=== PATIENT | male | born 1970 | race Caucasian/White ===

== ENCOUNTER → 2020-02-12 13:37 | Outpatient (BNVA) | payer OTHER, SELFPAY | PROVIDERS: PCP Nurse Practitioner Family; Referring Provider Nurse Practitioner Family; Visit Provider Nurse Practitioner | DX: Z76.89 Persons encountering health services in other specified circumstances (principal) ==

== ENCOUNTER 2020-02-15 12:28 | Emergency (ER) | payer SELFPAY ==
[2020-02-15 12:32] VITALS: RESP 18
--- NOTE | 2020-02-15 12:55 | PC.NURSE ---
Pt arrived on unit, seeking detox. pt denies SI. Cooperative w/ changeover. Speech sl thick, gait steady.
[2020-02-15 13:14] VITALS: BP 143/99; PULSE 84; RESP 20; TEMP 36.3; O2SAT 96; BMI 26.5
--- NOTE | 2020-02-15 13:14 | ED_ITS ---
HPI - Alcohol General Chief Complaint: ETOH/Substance Use Stated Complaint: Detox Time Seen by Provider: 02/15/20 12:57 Source: patient Mode of arrival: ambulatory History of Present Illness HPI narrative: 49-year-old male with a past medical history of ETOH abuse presenting to ED interested in detox. Admits to drinking 6-8 shots of whiskey daily, last drink 1 hour [employer] MAINTE[employer]IC[employer]. Denies SI/HI, visual/auditory hallucinations, CP/SOB, cough, fever, chills complaint: alcohol intoxication, alcohol dependence and medical clearance for detox facility Last drink: Hours (ago) Related Data Allergies Allergy/AdvReac Type Severity Reaction Status Date / Time No Known Allergies Allergy Verified 02/12/20 13:37 Review of Systems Review of Systems: Constitutional: No Weight loss, No Fever, No Chills, No Night Sweats, No Fatigue, No Malaise Cardiovascular: No Chest Pain, No SOB, No Palpitations Respiratory: No Cough, No Sputum, No Dyspnea Gastrointestinal: No Nausea, No Vomiting, No Diarrhea, No Abdominal pain Musculoskeletal: No joint pain, No Myalgias, No Joint Swelling Skin: No Skin Lesions, No rash Psych: No Anxiety/Panic, No Depression, No SI/HI/AH/VH, No Social Issues Yes all other systems are reviewed and are negative [facility] Past Medical History Attestation statement: The following information was validated with the patient. Family History Family History (Updated 02/12/20 @ 13:39 by CHAPINCITO Latif) Father Heart attack Mother No problems noted. Social History Social History (Updated 02/12/20 @ 13:41 by CHAPINCITO Latif) Alcohol intake: current Alcohol intake frequency: 3 or more drinks per day Alcohol type: hard liquor Smoking Status: Current every day smoker Tobacco Type: Cigarette Packs Per Day: 1.5 Use of substances other than those prescribed or required for medical reasons: Yes Substance Use Type: Marijuana Substance Use Frequency: Chronic Longstanding Last Used Substance: Just Prior to Admission Any prior treatment program specific to substance use: No Advance Directives: No Advance Directives Information Provided: No Physical Exam Vital Signs: Vital Signs: Last Vital Signs Temp 97.4 F 02/15/20 13:14 Pulse 84 02/15/20 13:14 Resp 20 02/15/20 13:14 BP 143/99 H 02/15/20 13:14 Pulse Ox 96 02/15/20 13:14 Body Mass Index 26.5 Const: Other: Intoxicated General: cooperative and healthy appearing Orientation/consciousness: patient oriented x3 Limitations: no limitations HENMT: Head: Yes normal to inspection Ears: hearing grossly normal bilaterally General nose exam: Normal external nose present Face and si nus: Yes normal facial exam Eyes: General: appearance normal, both eyes and all related structures EOM: EOMs intact bilaterally Neck: Neck: Yes normal visual inspection Resp: Effort & Inspection: normal respiratory effort Auscultation: clear to auscultation bilaterally and no wheezes Cardio: Rate: regular rate Heart sounds: S1 normal heart sound present and S2 normal heart sound present GI: Inspection: Yes normal to inspection Skin: Rashes: no rashes Wounds: no wounds Neuro: Other: No tongue fasciculations or tremors General: patient oriented x3 and gait normal Gait exam (Neuro): Normal gait present Extrem: General: Yes normal to inspection Course Course Course Narrative: -patient accepted to [facility] detox, bed available at 5:00 p.m. will be transporting patient, will discharge to go to detox MDM - Alcohol MDM Narrative Medical decision making narrative: 49-year-old male with a past medical history of ETOH abuse presenting to ED interested in detox. On exam VSS, NAD/well- appearing, intoxicated, ambulating with steady gait. Plan: [facility] for detox Lab Data Labs: Lab Results 02/15/20 Range/Units 13:57 Urine Opiates Screen Not Detected (Not Detect) Ur Barbiturates Screen Not Detected (Not Detect) Ur Phencyclidine Scrn Not Detected (Not Detect) Ur Amphetamines Screen Not Detected (Not Detect) U Benzodiazepines Scrn Not Detected (Not Detect) Urine Cocaine Screen Not Detected (Not Detect) U Marijuana (THC) Screen POSITIVE H (Not Detect) Discharge Plan Discharge Clinical Impression: Alcohol dependence Patient Disposition: Home, Self-Care Instructions: Alcohol Dependence (ED) Additional Instructions: You were excepted to [facility] detox, the bed is available at 5:00 p.m. Make sure you go to the detox center as discussed Do not drink alcohol or take drugs as a can kill you If you have suicidal or homicidal ideations return to the ED Referrals: Gulshan Chanel FNP-BC [Primary Care Provider] - 2 days
--- NOTE | 2020-02-15 13:17 | PC.NURSE ---
Pt evaluated by provider. CARE team in to evaluate. Pt reports he has been using 8-10 shots of whiskey daily. Denies any other substance use. States he has been able to work, maintain his marriage of 21 years but would like to 'slow things down.' Pt offered lunch. Crisis process explained.
--- NOTE | 2020-02-15 13:40 | MHC.CARE ---
Recovery Support note: Patient is a 49 year old [place]araguan speaking male who presented to [facility] ED seeking detox for alcohol use. Patient reports a desire to go to detox as he currently wakes up with shakes and has to drink in the morning. Patient reports a desire to get back to his previous ways of drinking - a couple of bears with friends. Explained to patient that he made the right choice to seek help and that it may be difficult to go back to his previous levels of drinking. Patient acknowledged. Patient is only interested in going to [facility] for detox. Ray ([facility] - nursing) reports they do have a male bed and patient's info has been faxed ([phone]) for review. Patient reports his will be able to transport him.
--- NOTE | 2020-02-15 13:58 | PC.NURSE ---
Pt resting, resp unlabored
[2020-02-15 14:31] LABS: Amphetamine Screen Urine Not Detected (Not Detect); Barbiturates, Urine Not Detected (Not Detect); Benzodiazepines Screen Urine Not Detected (Not Detect); Cannabinoid Screen Urine POSITIVE (Not Detect); Cocaine Screen Urine Not Detected (Not Detect); Opiate Screen Urine Not Detected (Not Detect); Phencyclidine Screen Urine Not Detected (Not Detect)
--- NOTE | 2020-02-15 15:38 | PC.NURSE ---
Report given to Theodora at [facility]. Pt discharged to the waiting room to await ride home, will transport.
[2020-02-15 15:56] LABS: Ethanol 266 mg/dL
== END 2020-02-15 15:40 | disposition home or self-care (01) ==
PROVIDERS: Physician Assistant; Emergency Provider Emergency Medicine Emergency Medical Services; PCP Nurse Practitioner Family
DX: F10.229 Alcohol dependence with intoxication, unspecified (principal); F17.210 Nicotine dependence, cigarettes, uncomplicated; Z71.6 Tobacco abuse counseling; Z71.41 Alcohol abuse counseling and surveillance of alcoholic
CPT/HCPCS: 80307; 80320; 99284

== ENCOUNTER 2020-05-18 03:15 | Emergency (ER) | payer MEDICAID, SELFPAY ==
--- NOTE | ~2020-05-18 | XR_ITS ---
EXAMINATION: XR CHEST CLINICAL INFORMATION: Cough COMPARISON: 08/16/2019 TECHNIQUE: Frontal view of the chest was obtained. FINDINGS: The cardiomediastinal silhouette is within normal limits. The lungs are well expanded. There is no focal consolidation, edema, or effusion. No pneumothorax. No acute osseous abnormality. XR/XR chest 1V IMPRESSION: No evidence of acute process.
[2020-05-18 03:29] VITALS: BP 125/86; PULSE 79; RESP 15; TEMP 36.6; O2SAT 97; BMI 25.1
[2020-05-18 03:35] VITALS: PULSE 83; O2SAT 96
[2020-05-18 03:38] VITALS: BP 128/91; PULSE 81; RESP 16; TEMP 36.6; O2SAT 97
[2020-05-18 05:19] VITALS: BP 128/91; PULSE 86; RESP 18; TEMP 36.6; O2SAT 97
--- NOTE | 2020-05-18 06:19 | ECG_ITS ---
Test Reason : SOB Blood Pressure : / mmHG Vent. Rate : 062 BPM Atrial Rate : 062 BPM P-R Int : 138 ms QRS Dur : 088 ms QT Int : 464 ms P-R-T Axes : 050 029 076 degrees QTc Int : 470 ms Normal sinus rhythm ST & T wave abnormality, consider anterior ischemia Prolonged QT Abnormal ECG When compared with ECG of 16-AUG-2019 06:41, T wave inversion more evident in Anterior leads Referred By: Ainsley Cage Electronically Signed By:KALIE LEARY
--- NOTE | 2020-05-18 06:31 | ED_ITS ---
HPI - General Adult General Chief complaint: Upper Respiratory Symptoms Stated complaint: SOB/DIZZY Time Seen by Provider: 05/18/20 06:17 Source: patient Mode of arrival: ambulatory History of Present Illness HPI narrative: This is a 50-year-old male history of chronic alcohol use and presents with complaints of chest discomfort, burning in nature, nonradiating, exacerbated by deep inspiration and movement, and not associated with fevers, chills, nausea, vomiting, dizziness, headache. Patient sources that he had for nips yesterday. Related Data Home Medications Medication Instructions Recorded Confirmed No Known Home Meds 05/18/20 05/18/20 Allergies Allergy/AdvReac Type Severity Reaction Status Date / Time No Known Allergies Allergy Verified 02/20/20 13:31 Review of Systems Review of Systems: Pertinent positives and negatives as stated in HPI 10 point review of systems is otherwise negative. PMFSH Past Medical History Source: nursing notes reviewed Medical History Autoimmune disease Lyme disease Pancreatitis Surgical History No pertinent past surgical history Family History Family History Father Heart attack Mother No problems noted. Sister No problems noted. Daughter No problems noted. Social History Social History Alcohol intake: current Alcohol intake frequency: 3 or more drinks per day Alcohol type: beer and hard liquor Smoking Status: Current every day smoker Tobacco Type: Cigarette Packs Per Day: 1.5 Smoked in Last 30 Days: Yes Use of substances other than those prescribed or required for medical reasons: No Substance Use Type: Marijuana Advance Directives: No Physical Exam Vital Signs: Vital Signs: Last Vital Signs Temp 98 F 05/18/20 05:19 Pulse 87 05/18/20 08:08 Resp 16 05/18/20 08:08 BP 103/63 05/18/20 08:08 Pulse Ox 96 05/18/20 08:08 Body Mass Index 25.1 VITAL SIGNS: Reviewed. GENERAL: Well developed, well nourished, in no acute distress. HEAD: Normocephalic/atraumatic, EYES: PERRLA, EOMI NOSE: Nares patent bilateral OROPHARYNX: no oral lesions noted, posterior pharynx clear NECK: Supple, no adenopathy LUNGS: Normal breath sounds. SpO2<96> CARDIOVASCULAR: Regular rate and rhythm without noted murmurs, no JVD or lower extremity edema. ABDOMEN: Soft, non-tender, non-distended with bowel sounds. MUSCULOSKELETAL: No tenderness, deformities, or effusions noted on gross inspection. EXTREMITIES: No cyanosis, clubbing or edema. SKIN: Inspection of the skin reveals no rashes, ulcerations, jaundice, pallor, or petechiae. NEUROLOGIC: Alert and oriented x 4. Course Course Course Narrative: This is a 50-year-old male with history and clinical presentation most suggestive of alcoholic gastritis versus GERD versus pancreatitis, but will rule out cardiopulmonary etiology. On review of all investigations there are no acute findings and on re-evaluation after receiving GI cocktail patient has had improvement of his symptoms. All results and findings were discussed with him at bedside and he is otherwise stable for discharge to home. Medical Decision Making Lab Data Result diagrams: 05/18/20 06:33 05/18/20 06:33 Labs: Lab Results 05/18/20 05/18/20 05/18/20 Range/Units 06:33 06:33 06:33 WBC 7.1 (4.8-10.8) X10*3/uL RBC 4.41 L (4.60-5.80) X10*6/uL Hgb 15.4 (14.0-18.0) g/dl Hct 43.5 (42-52) % MCV 98.6 H (80-98) fL MCH 34.9 H (27.0-33.0) pg MCHC 35.4 (31.0-36.0) g/dl RDW 12.4 (11.0-16.0) % Plt Count 203 (160-400) X10*3/uL MPV 9.5 (9.4-12.4) fL Immature Gran % (Auto) 0.3 (0.0-0.4) % Neut % (Auto) 40.2 L (45-73) % Lymph % (Auto) 49.6 H (20-40) % [place] % (Auto) 6.4 (2-11) % Eos % (Auto) 2.0 (0-4) % Baso % (Auto) 1.5 (0-2) % Lymph # (Auto) 3.5 (1.2-4.9) X10*3/uL [place] # (Auto) 0.5 (0.1-1.2) X10*3/uL Eos # (Auto) 0.1 (0.0-0.4) X10*3/uL Baso # (Auto) 0.1 (0.0-0.2) X10*3/uL Abs Immat Gran (auto) 0.02 (0.00-0.03) X10*3/uL Absolute Neuts (auto) 2.9 (2.0-8.3) X10*3/uL Absolute Nucleated RBC 0.000 (0.0-0.012) X10*3/uL Nucleated RBC % (auto) 0.0 (0.0-0.2) /100WBC Sodium 141 (135-145) mmol/L Potassium 3.7 (3.3-5.1) mmol/L Chloride 102 (96-108) mmol/L Carbon Dioxide 25 (22-29) mmol/L Anion Gap 18 (12-20) BUN 9 (9-16) mg/dL Creatinine 0.69 (0.5-1.4) mg/dL Estim Creat Clear Calc 130.7 Estimated GFR > 60 Random Glucose 91 (60-115) mg/dL Calcium 8.8 (8.4-10.2) mg/dL Total Bilirubin 0.8 (0.0-1.0) mg/dL AST 58 H (5-37) U/L ALT 60 H (0-40) U/L Alkaline Phosphatase 83 (39-117) U/L Troponin I High Sens (<3.5-35.0) ng/L Total Protein 7.1 (6.5-8.0) g/dL Albumin 4.4 (3.5-5.0) g/dL Lipase 61 (8-78) U/L Ethyl Alcohol mg/dL Coronavirus (PCR) NEGATIVE (Negative) Influenza Type A (PCR) NEGATIVE (Negative) Influenza Type B (PCR) NEGATIVE (Negative) RSV RNA Qual (PCR) NEGATIVE (Negative) 05/18/20 05/18/20 Range/Units 06:33 06:33 WBC (4.8-10.8) X10*3/uL RBC (4.60-5.80) X10*6/uL Hgb (14.0-18.0) g/dl Hct (42-52) % MCV (80-98) fL MCH (27.0-33.0) pg MCHC (31.0-36.0) g/dl RDW (11.0-16.0) % Plt Count (160-400) X10*3/uL MPV (9.4-12.4) fL Immature Gran % (Auto) (0.0-0.4) % Neut % (Auto) (45-73) % Lymph % (Auto) (20-40) % [place] % (Auto) (2-11) % Eos % (Auto) (0-4) % Baso % (Auto) (0-2) % Lymph # (Auto) (1.2-4.9) X10*3/uL [place] # (Auto) (0.1-1.2) X10*3/uL Eos # (Auto) (0.0-0.4) X10*3/uL Baso # (Auto) (0.0-0.2) X10*3/uL Abs Immat Gran (auto) (0.00-0.03) X10*3/uL Absolute Neuts (auto) (2.0-8.3) X10*3/uL Absolute Nucleated RBC (0.0-0.012) X10*3/uL Nucleated RBC % (auto) (0.0-0.2) /100WBC Sodium (135-145) mmol/L Potassium (3.3-5.1) mmol/L Chloride (96-108) mmol/L Carbon Dioxide (22-29) mmol/L Anion Gap (12-20) BUN (9-16) mg/dL Creatinine (0.5-1.4) mg/dL Estim Creat Clear Calc Estimated GFR Random Glucose (60-115) mg/dL Calcium (8.4-10.2) mg/dL Total Bilirubin (0.0-1.0) mg/dL AST (5-37) U/L ALT (0-40) U/L Alkaline Phosphatase (39-117) U/L Troponin I High Sens < 3.5 (<3.5-35.0) ng/L Total Protein (6.5-8.0) g/dL Albumin (3.5-5.0) g/dL Lipase (8-78) U/L Ethyl Alcohol 275 mg/dL Coronavirus (PCR) (Negative) Influenza Type A (PCR) (Negative) Influenza Type B (PCR) (Negative) RSV RNA Qual (PCR) (Negative) ECG Data Attestation: I personally reviewed and interpreted this ECG as follows: Prior ECG tracings: available for review (08/16/2019 T-wave inversions more noticeable on today's EKG, otherwise no acute changes.) Interpretation: Normal sinus rhythm, HR -62, no evidence of acute ischemia, OK/humerus are within normal limits and there is borderline QTC. Discharge Plan Discharge Clinical Impression: Atypical chest pain Patient Disposition: Home, Self-Care Instructions: Chest Pain (ED), Chest Wall Pain (ED) Additional Instructions: 1. Please resume all home medications as prescribed. 2. Consider utilizing [id number] Tylenol/ibuprofen for symptom relief. 3. Consider minimizing alcohol consumption as this may exacerbate your presenting symptoms. 4. Please follow-up with your primary care provider for re- evaluation and outpatient management Do not hesitate to return to the emergency department should you experience any acute worsening of your symptoms. Prescriptions: No Action No Known Home Meds RF: 0 Referrals: Gulshan Chanel, [employer] [Primary Care Provider] - 2 days (Re-evaluation and out patient management atypical chest pain, negative workup in the emergency department.)
[2020-05-18 06:40] LABS: MANUAL DIFF FLAG NO
[2020-05-18 06:42] LABS: Basophils Absolute Auto 0.1 X10*3/uL (0.0-0.2); Basophils Percent Auto 1.5 % (0-2); Eosinophils Absolute Auto 0.1 X10*3/uL (0.0-0.4); Hematocrit 43.5 % (42-52); Hemoglobin 15.4 g/dl (14.0-18.0); Imm Gran Abs Auto 0.02 X10*3/uL (0.00-0.03); Imm Gran Pct Auto 0.3 % (0.0-0.4); Lymphocytes Absolute Auto 3.5 X10*3/uL (1.2-4.9); Lymphocytes Percent Auto 49.6 % (20-40); Mean Corpuscular HGB Conc 35.4 g/dl (31.0-36.0); Mean Corpuscular Hemoglobin 34.9 pg (27.0-33.0); Mean Corpuscular Volume 98.6 fL (80-98); Mean Platelet Volume 9.5 fL (9.4-12.4); Monocytes Absolute Auto 0.5 X10*3/uL (0.1-1.2); Monocytes Percent Auto 6.4 % (2-11); Neutrophils Absolute Auto 2.9 X10*3/uL (2.0-8.3); Neutrophils Percent Auto 40.2 % (45-73); Platelet Count 203 X10*3/uL (160-400); Red Blood Count 4.41 X10*6/uL (4.60-5.80); Red Cell Distribution Width 12.4 % (11.0-16.0); White Blood Count 7.1 X10*3/uL (4.8-10.8)
[2020-05-18 07:03] LABS: Ethanol 275 mg/dL
[2020-05-18 07:07] LABS: Alanine Aminotransferase 60 U/L (0-40); Albumin Level 4.4 g/dL (3.5-5.0); Alkaline Phosphatase 83 U/L (39-117); Anion Gap 18 (12-20); Aspartate Amino Transferase 58 U/L (5-37); Bilirubin Total 0.8 mg/dL (0.0-1.0); Blood Urea Nitrogen 9 mg/dL (9-16); Calcium 8.8 mg/dL (8.4-10.2); Carbon Dioxide 25 mmol/L (22-29); Chloride 102 mmol/L (96-108); Creatinine Clr Calc Pharmacy 130.7; Estimated Glomerular Filt Rate > 60; Glucose Random 91 mg/dL (60-115); Lipase 61 U/L (8-78); Potassium 3.7 mmol/L (3.3-5.1); Sodium 141 mmol/L (135-145); Total Protein 7.1 g/dL (6.5-8.0)
[2020-05-18 07:19] LABS: Influenza A PCR NEGATIVE (Negative); Influenza B PCR NEGATIVE (Negative); Resp Syncy Virus RNA Qual PCR NEGATIVE (Negative); SARS COV2 PCR INHOUSE NEGATIVE (Negative)
[2020-05-18] MEDS: Lidocaine HCl Viscous 2 % 15 ML SOLUTION 10 ML MUCOUS MEM (08:06)
[2020-05-18] MEDS: Magnesium Hydrox/Alum Hydrox 30 ML ORAL.SUSP PO (08:06)
[2020-05-18 08:07] LABS: Troponin-I High Sensitivity < 3.5 ng/L (<3.5-35.0)
[2020-05-18 08:08] VITALS: BP 103/63; PULSE 87; RESP 16; O2SAT 96
== END 2020-05-18 09:22 | disposition home or self-care (01) ==
PROVIDERS: Emergency Provider Student in an Organized Health Care Education/Training Program; PCP Nurse Practitioner Family
DX: R07.89 Other chest pain (principal); R42 Dizziness and giddiness; R06.02 Shortness of breath; F17.210 Nicotine dependence, cigarettes, uncomplicated; Z71.6 Tobacco abuse counseling; Z20.822 Contact with and (suspected) exposure to COVID-19
CPT/HCPCS: 0241U; 36415; 71045; 80053; 80320; 83690; 84484; 85025; 93005; 99285

== ENCOUNTER 2020-06-17 11:03 | Outpatient (REF) | payer MEDICAID, SELFPAY ==
[2020-06-17 12:05] LABS: SARS COV2 PCR INHOUSE NEGATIVE (Negative)
== END 2020-06-17 11:04 | disposition home or self-care (01) ==
LOC: HO.LAB 11:03
PROVIDERS: Visit Provider Internal Medicine
DX: Z20.822 Contact with and (suspected) exposure to COVID-19 (principal)
CPT/HCPCS: C9803; U0003

== ENCOUNTER 2020-07-28 09:10 | Emergency (ER) | payer MEDICAID, SELFPAY ==
[2020-07-28 09:23] VITALS: BP 118/85; PULSE 68; RESP 16; TEMP 36.6; O2SAT 95; BMI 32.1
--- NOTE | 2020-07-28 09:34 | ED.GIBLEED ---
HPI - GI Bleed General Chief complaint: Abdominal Pain Stated complaint: vomiting blood Time Seen by Provider: 07/28/20 09:30 Source: patient Mode of arrival: ambulatory Limitations: no limitations History of Present Illness HPI Narrative: 50 yo male hx of ETOH use here with vomiting in the middle of the night x 1 saw brb no clots, no NSAIDs or AC therapy, no prior episodes complaint: gross hematemesis Onset (ago): hour(s) (around 3am) Severity: mild Relieving factors: none Exacerbating factors: none Context: alcohol abuse Associated symptoms: nausea and vomiting Treatments Prior to Arrival: none Related Data Previous Rx's Medication Instructions Recorded omeprazole 20 mg PO BID 14 Days #28 cap 07/28/20 ondansetron 4 mg PO Q8H PRN #20 tab 07/28/20 Allergies Allergy/AdvReac Type Severity Reaction Status Date / Time No Known Allergies Allergy Verified 05/22/20 09:37 Review of Systems Review of Systems: Constitutional : No Weight loss, No Fever, No Chills ENT/Mouth : No sore throat, No Rhinorrhea Eyes: No Swelling, No Redness Cardiovascular : No Chest Pain, No SOB, NoEdema Respiratory : No Cough, No Sputum, No Wheezing Gastrointestinal : Positive Nausea, Positive Vomiting,no Diarrhea, no abdominal Pain, No Hematochezia, No Melena Genitourinary : No Dysuria, No Urinary Frequency, No Hematuria, No Urgency Musculoskeletal : No joint pain, No Myalgias, No Joint Swelling Skin : No Skin Lesions, No rash Neuro : No Weakness, No Numbness, No Dizziness, No Headache Psych : No Anxiety/Panic, No Depression Heme/Lymph: No Bruising, No Lymphadenopathy Endocrine : No Polyuria, No Polydipsia All other systems reviewed and are negative. [facility] Past Medical History Attestation statement: The following information was validated with the patient. Medical History Autoimmune disease Lyme disease Pancreatitis Surgical History No pertinent past surgical history Family History Family History Father Heart attack Mother No problems noted. Sister No problems noted. Daughter No problems noted. Social History Social History Alcohol intake: current Alcohol intake frequency: 3 or more drinks per day Alcohol type: beer and hard liquor Smoking Status: Current every day smoker Tobacco Type: Cigarette Packs Per Day: 1.5 Substance Use Type: Marijuana Advance Directives: No Advance Directives Information Provided: No Physical Exam Vital Signs: Vital Signs: Last Vital Signs Temp 98 F 07/28/20 09:23 Pulse 68 07/28/20 09:23 Resp 16 07/28/20 09:23 BP 118/85 07/28/20 09:23 Pulse Ox 95 07/28/20 09:23 Body Mass Index 32.1 Appearance: Alert. Oriented X3. No acute distress. Eyes: Pupils equal, round and reactive to light. ENT: Pharynx normal. Neck: Normal inspection. Neck supple. CVS: Normal heart rate and rhythm. Pulses normal. Respiratory: No respiratory distress. Breath sounds normal. Abdomen: Soft and nontender. Rectal: brown stool Skin: Skin warm and dry. Normal skin color. Normal skin turgor. Extremities: No lower extremity edema. No calf ttp Neuro: Oriented X 3. No motor deficit. No sensory deficit. Course Course Course Narrative: labs are stable, can be DC at this time, no further episodes, start on PPI no abdominal ttp chronic elevation in lipase, LFTs due to ETOH, clinically sober stable for DC MDM - GI Bleed MDM Narrative Medical decision making narrative: 50 yo male hx of alcoholism had n/v and one episode of brb no clots noted - has benign abdominal exam, brown stools - likely ETOH gastritis vs indy rasheed will obtain labs, guiac stool, start on protonix, dispo per results and findings, no NSAIDs and no AC therapy Lab Data Result diagrams: 07/28/20 10:06 07/28/20 10:06 Labs: Lab Results 07/28/20 07/28/20 07/28/20 Range/Units 10:06 10:06 10:06 WBC 5.3 (4.8-10.8) X10*3/uL RBC 4.23 L (4.60-5.80) X10*6/uL Hgb 14.7 (14.0-18.0) g/dl Hct 42.1 (42-52) % MCV 99.5 H (80-98) fL MCH 34.8 H (27.0-33.0) pg MCHC 34.9 (31.0-36.0) g/dl RDW 13.2 (11.0-16.0) % Plt Count 114 L D (160-400) X10*3/uL MPV 9.9 (9.4-12.4) fL Immature Gran % (Auto) 0.2 (0.0-0.4) % Neut % (Auto) 67.5 (45-73) % Lymph % (Auto) 22.3 (20-40) % [place] % (Auto) 7.9 (2-11) % Eos % (Auto) 0.8 (0-4) % Baso % (Auto) 1.3 (0-2) % Lymph # (Auto) 1.2 (1.2-4.9) X10*3/uL [place] # (Auto) 0.4 (0.1-1.2) X10*3/uL Eos # (Auto) 0.0 (0.0-0.4) X10*3/uL Baso # (Auto) 0.1 (0.0-0.2) X10*3/uL Abs Immat Gran (auto) 0.01 (0.00-0.03) X10*3/uL Absolute Neuts (auto) 3.6 (2.0-8.3) X10*3/uL Absolute Nucleated RBC 0.000 (0.0-0.012) X10*3/uL Nucleated RBC % (auto) 0.0 (0.0-0.2) /100WBC PT 11.9 (10.8-13.0) SEC INR 1.0 (0.9-1.1) APTT 36.0 (24.1-38.0) SEC Sodium 140 (135-145) mmol/L Potassium 3.6 (3.3-5.1) mmol/L Chloride 96 (96-108) mmol/L Carbon Dioxide 25 (22-29) mmol/L Anion Gap 23 H (12-20) BUN 9 (9-16) mg/dL Creatinine 0.72 (0.5-1.4) mg/dL Estim Creat Clear Calc 106.8 Estimated GFR > 60 Random Glucose 212 H D (60-115) mg/dL Calcium 9.3 (8.4-10.2) mg/dL Magnesium 1.6 (1.6-2.6) mg/dL Total Bilirubin 2.2 H (0.0-1.0) mg/dL Direct Bilirubin 0.9 H (0.0-0.5) mg/dL AST 144 H (5-37) U/L ALT 73 H (0-40) U/L Alkaline Phosphatase 83 (39-117) U/L Total Protein 7.3 (6.5-8.0) g/dL Albumin 4.5 (3.5-5.0) g/dL Lipase 97 H (8-78) U/L Stool Occult Blood (NEGATIVE) Ethyl Alcohol mg/dL 07/28/20 07/28/20 Range/Units 10:06 10:06 WBC (4.8-10.8) X10*3/uL RBC (4.60-5.80) X10*6/uL Hgb (14.0-18.0) g/dl Hct (42-52) % MCV (80-98) fL MCH (27.0-33.0) pg MCHC (31.0-36.0) g/dl RDW (11.0-16.0) % Plt Count (160-400) X10*3/uL MPV (9.4-12.4) fL Immature Gran % (Auto) (0.0-0.4) % Neut % (Auto) (45-73) % Lymph % (Auto) (20-40) % [place] % (Auto) (2-11) % Eos % (Auto) (0-4) % Baso % (Auto) (0-2) % Lymph # (Auto) (1.2-4.9) X10*3/uL [place] # (Auto) (0.1-1.2) X10*3/uL Eos # (Auto) (0.0-0.4) X10*3/uL Baso # (Auto) (0.0-0.2) X10*3/uL Abs Immat Gran (auto) (0.00-0.03) X10*3/uL Absolute Neuts (auto) (2.0-8.3) X10*3/uL Absolute Nucleated RBC (0.0-0.012) X10*3/uL Nucleated RBC % (auto) (0.0-0.2) /100WBC PT (10.8-13.0) SEC INR (0.9-1.1) APTT (24.1-38.0) SEC Sodium (135-145) mmol/L Potassium (3.3-5.1) mmol/L Chloride (96-108) mmol/L Carbon Dioxide (22-29) mmol/L Anion Gap (12-20) BUN (9-16) mg/dL Creatinine (0.5-1.4) mg/dL Estim Creat Clear Calc Estimated GFR Random Glucose (60-115) mg/dL Calcium (8.4-10.2) mg/dL Magnesium (1.6-2.6) mg/dL Total Bilirubin (0.0-1.0) mg/dL Direct Bilirubin (0.0-0.5) mg/dL AST (5-37) U/L ALT (0-40) U/L Alkaline Phosphatase (39-117) U/L Total Protein (6.5-8.0) g/dL Albumin (3.5-5.0) g/dL Lipase (8-78) U/L Stool Occult Blood NEGATIVE (NEGATIVE) Ethyl Alcohol 249 mg/dL Discharge Plan Discharge Clinical Impression: Indy-Rasheed tear Acute alcoholic gastritis Qualifiers: Gastritis bleeding: with bleeding Qualified Code(s): K29.21 - Alcoholic gastritis with bleeding Patient Disposition: Home, Self-Care Instructions: Gastritis (ED), Indy-Rasheed Syndrome (ED) Additional Instructions: return to ED for any worsening symptoms or concerns AVOID MOTRIN, ALEVE, ASPIRIN, IBUPROFEN PLEASE TRY TO CUT DOWN YOUR DRINKING Prescriptions: New ondansetron 4 mg tablet,disintegrating 4 mg PO Q8H PRN (Reason: nausea and vomiting) Qty: 20 RF: 0 omeprazole 20 mg capsule,delayed release(DR/EC) 20 mg PO BID 14 Days Qty: 28 RF: 0 Referrals: Gulshan Chanel FNP-[facility] [Primary Care Provider] - 2 days Stand Alone Forms: Work/School Release
[2020-07-28 10:14] LABS: MANUAL DIFF FLAG NO; OBS Int Ctl Valid YES; OBS1 NEGATIVE (NEGATIVE)
[2020-07-28 10:15] LABS: Basophils Absolute Auto 0.1 X10*3/uL (0.0-0.2); Basophils Percent Auto 1.3 % (0-2); Eosinophils Percent Auto 0.8 % (0-4); Hematocrit 42.1 % (42-52); Hemoglobin 14.7 g/dl (14.0-18.0); Imm Gran Abs Auto 0.01 X10*3/uL (0.00-0.03); Imm Gran Pct Auto 0.2 % (0.0-0.4); Lymphocytes Absolute Auto 1.2 X10*3/uL (1.2-4.9); Lymphocytes Percent Auto 22.3 % (20-40); Mean Corpuscular HGB Conc 34.9 g/dl (31.0-36.0); Mean Corpuscular Hemoglobin 34.8 pg (27.0-33.0); Mean Corpuscular Volume 99.5 fL (80-98); Mean Platelet Volume 9.9 fL (9.4-12.4); Monocytes Absolute Auto 0.4 X10*3/uL (0.1-1.2); Monocytes Percent Auto 7.9 % (2-11); Neutrophils Absolute Auto 3.6 X10*3/uL (2.0-8.3); Neutrophils Percent Auto 67.5 % (45-73); Platelet Count 114 X10*3/uL (160-400); Red Blood Count 4.23 X10*6/uL (4.60-5.80); Red Cell Distribution Width 13.2 % (11.0-16.0); White Blood Count 5.3 X10*3/uL (4.8-10.8)
[2020-07-28 10:22] LABS: Prothrombin Time 11.9 SEC (10.8-13.0)
[2020-07-28] MEDS: Pantoprazole Sodium 40 MG/10 ML VIAL IVPUSH (10:30)
[2020-07-28] MEDS: ondansetron HCL 4 MG/2 ML VIAL IVPUSH (10:30)
[2020-07-28] MEDS: 0.9 % Sodium Chloride 1,000 ML 999 ML IVCONT (10:30)
[2020-07-28 10:36] LABS: Ethanol 249 mg/dL
[2020-07-28 11:05] LABS: Alanine Aminotransferase 73 U/L (0-40); Albumin Level 4.5 g/dL (3.5-5.0); Alkaline Phosphatase 83 U/L (39-117); Anion Gap 23 (12-20); Aspartate Amino Transferase 144 U/L (5-37); Bilirubin Direct 0.9 mg/dL (0.0-0.5); Bilirubin Total 2.2 mg/dL (0.0-1.0); Blood Urea Nitrogen 9 mg/dL (9-16); Calcium 9.3 mg/dL (8.4-10.2); Carbon Dioxide 25 mmol/L (22-29); Chloride 96 mmol/L (96-108); Creatinine Clr Calc Pharmacy 106.8; Estimated Glomerular Filt Rate > 60; Glucose Random 212 mg/dL (60-115); Lipase 97 U/L (8-78); Magnesium 1.6 mg/dL (1.6-2.6); Potassium 3.6 mmol/L (3.3-5.1); Sodium 140 mmol/L (135-145); Total Protein 7.3 g/dL (6.5-8.0)
== END 2020-07-28 11:27 | disposition home or self-care (01) ==
PROVIDERS: Emergency Provider Emergency Medicine; PCP Nurse Practitioner Family
DX: K22.6 Gastro-esophageal laceration-hemorrhage syndrome (principal); K29.21 Alcoholic gastritis with bleeding; K92.0 Hematemesis; F10.129 Alcohol abuse with intoxication, unspecified; Y90.8 Blood alcohol level of 240 mg/100 ml or more; F17.210 Nicotine dependence, cigarettes, uncomplicated; Z71.6 Tobacco abuse counseling; F12.90 Cannabis use, unspecified, uncomplicated; Z79.899 Other long term (current) drug therapy
CPT/HCPCS: 36415; 80048; 80076; 80320; 82272; 83690; 83735; 85025; 85610; 85730; 96365; 96375; 99284; J2405

== ENCOUNTER 2020-08-13 17:14 | Inpatient (IN) | payer MEDICAID, SELFPAY ==
--- NOTE | ~2020-08-13 | CT_ITS ---
EXAMINATION: CT ABDOMEN AND PELVIS WITH CONTRAST CLINICAL INFORMATION: Abdominal pain COMPARISON: CT scan abdomen pelvis 08/16/2019, 11/08/2018 TECHNIQUE: Multidetector volumetric images were obtained from the superior aspect of the liver through the pubic symphysis following administration 85 mL of Omnipaque 350 intravenous contrast. Sagittal and coronal reformatted images were obtained on the technologist's workstation. Oral contrast: No This CT examination was performed using dose optimization techniques as appropriate, variously including the following: *Automated exposure control *Adjustment of mA and/or kV according to patient size (this includes techniques or standardized protocols for targeted exams where dose is matched to indication/reason for exam; i.e. extremities or head) *Use of iterative reconstruction technique DLP: 531 mGy-cm FINDINGS: LUNG BASES: The visualized lung bases are unremarkable. LIVER, GALLBLADDER, AND BILIARY TREE: There is diffuse low attenuation of liver parenchyma due to fatty change. Mild hepatomegaly. Right lobe of liver measures 21.5 cm superior-inferior. No focal liver lesion or intrahepatic bile duct dilatation The gallbladder is unremarkable with no evidence of radiopaque gallstones, gallbladder wall thickening, or obvious pericholecystic inflammatory changes. PANCREAS: Unremarkable. SPLEEN: Unremarkable. ADRENAL GLANDS: Unremarkable. KIDNEYS AND URETERS: The kidneys are normal in size, shape, and attenuation. No hydronephrosis, hydroureter, or calculi seen. No perinephric stranding. BLADDER: Unremarkable. GASTROINTESTINAL TRACT: No acute abnormality. There is no bowel wall thickening /edema. There is no bowel obstruction. There is a moderate to large volume of stool in the colon. The appendix is normal . The small bowel loops are unremarkable. The stomach is normal. There is no hiatal hernia. ABDOMINAL WALL: No significant hernia is appreciated. LYMPH NODES: Normal. VASCULAR: Unremarkable. PELVIC VISCERA: Unremarkable. OSSEOUS STRUCTURES: Vacuum disc phenomenon L5-S1. CT/CT abdomen pelvis w con IMPRESSION: 1. No acute abnormality. 2. Hepatic steatosis. Mild hepatomegaly.
[2020-08-13 17:20] VITALS: BP 116/86; PULSE 93; RESP 18; TEMP 37; O2SAT 95; BMI 25.1
[2020-08-13 17:57] VITALS: BP 132/86; PULSE 85; RESP 18; TEMP 37.3; O2SAT 95
[2020-08-13 18:00] VITALS: BP 132/86; PULSE 85; RESP 18; TEMP 37.3; O2SAT 95
--- NOTE | 2020-08-13 18:00 | PC.NURSE ---
at bedside found lying on top of patient. asked to not lay on top of patient and return to bedside chair.
[2020-08-13 18:13] LABS: MANUAL DIFF FLAG NO
[2020-08-13 18:17] LABS: Basophils Absolute Auto 0.1 X10*3/uL (0.0-0.2); Basophils Percent Auto 2.1 % (0-2); Eosinophils Absolute Auto 0.1 X10*3/uL (0.0-0.4); Eosinophils Percent Auto 3.3 % (0-4); Hematocrit 43.9 % (42-52); Hemoglobin 15.6 g/dl (14.0-18.0); Imm Gran Abs Auto 0.01 X10*3/uL (0.00-0.03); Imm Gran Pct Auto 0.2 % (0.0-0.4); Lymphocytes Absolute Auto 2.3 X10*3/uL (1.2-4.9); Lymphocytes Percent Auto 54.3 % (20-40); Mean Corpuscular HGB Conc 35.5 g/dl (31.0-36.0); Mean Corpuscular Hemoglobin 34.9 pg (27.0-33.0); Mean Corpuscular Volume 98.2 fL (80-98); Mean Platelet Volume 9.9 fL (9.4-12.4); Monocytes Absolute Auto 0.5 X10*3/uL (0.1-1.2); Monocytes Percent Auto 10.5 % (2-11); Neutrophils Absolute Auto 1.3 X10*3/uL (2.0-8.3); Neutrophils Percent Auto 29.6 % (45-73); Platelet Count 142 X10*3/uL (160-400); Red Blood Count 4.47 X10*6/uL (4.60-5.80); Red Cell Distribution Width 14.1 % (11.0-16.0); White Blood Count 4.3 X10*3/uL (4.8-10.8)
--- NOTE | 2020-08-13 18:20 | ED_ITS ---
HPI - General Adult General Chief complaint: Nausea/Vomiting/Diarrhea Stated complaint: weakness, multiple Time Seen by Provider: 08/13/20 18:08 Related Data Home Medications Medication Instructions Recorded Confirmed No Known Home Meds 08/13/20 08/13/20 Allergies Allergy/AdvReac Type Severity Reaction Status Date / Time No Known Allergies Allergy Verified 05/22/20 09:37 Review of Systems Review of Systems: Constitutional : No Weight loss, No Fever, No Chills, No Ni ght Sweats, No Fatigue, No Malaise ENT/Mouth : No Hearing loss, No Ear Pain, No Nasal Congestion, No Sinus Pain, No Hoarseness, No sore throat, No Rhinorrhea, No Swallowing Difficulty Eyes: No Eye Pain, No Swelling, No Redness, No Foreign Body, No Discharge, No Vision Changes Cardiovascular : No Chest Pain, No SOB, No Dyspnea on Exertion, No Orthopnea, No Edema, No Palpitations Respiratory : No Cough, No Sputum, No Wheezing, No Smoke Exposure, No Dyspnea Gastrointestinal : Nausea, Vomiting, No Diarrhea, No Constipation, No abdominal Pain, No Hematochezia, No Melena Genitourinary : no irregular bleeding, No Dysuria, No Urinary Frequency, No Hematuria, No Urinary Incontinence, No Urgency, No Flank Pain, No Urinary Flow Changes, No Hesitancy Musculoskeletal : No joint pain, No Myalgias, No Joint Swelling Skin : No Skin Lesions, No rash Neuro : No Weakness, No Numbness, No Paresthesias, No Loss of Consciousness, No Dizziness, No Headache Psych : No Anxiety/Panic, No Depression, No SI/HI/AH/VH, No Social Issues, Heme/Lymph: No Bruising, No Bleeding,No Lymphadenopathy Endocrine : No Polyuria, No Polydipsia, No Temperature Intolerance Yes all other systems are reviewed and are negative [facility] Past Medical History Medical History Autoimmune disease Lyme disease Pancreatitis Surgical History No pertinent past surgical history Family History Family History Father Heart attack Mother No problems noted. Sister No problems noted. Daughter No problems noted. Social History Social History Alcohol intake: current Alcohol intake frequency: 3 or more drinks per day Alcohol type: hard liquor Patient Tobacco Use Status: Current everyday Tobacco user Cigarette Packs Per Day: 1.5 Smoked in Last 30 Days: Yes Use of substances other than those prescribed or required for medical reasons: No Substance Use Type: Marijuana Advance Directives: No Advance Directives Information Provided: Yes Physical Exam Vital Signs: Vital Signs: Last Vital Signs Temp 97.9 F 08/13/20 20:00 Pulse 76 08/13/20 20:00 Resp 15 08/13/20 20:00 BP 123/79 08/13/20 20:00 Pulse Ox 95 08/13/20 20:00 Body Mass Index 25.1 Const: General: healthy appearing, no acute distress and well developed Nutritional Appearance: well nourished Orientation/consciousness: patient oriented x3 Neck: Neck: Yes normal visual inspection, Yes full ROM and Yes trachea midline Thyroid: Thyroid normal Resp: Auscultation: clear to auscultation bilaterally Cardio: Rate: regular rate Rhythm: regular rhythm GI: Inspection: Yes normal to inspection and No distended Palpation (GI): No hepatosplenomegaly present Auscultation: normal bowel sounds Skin: General skin exam: elasticity normal, turgor normal and dry skin Neuro: General: patient oriented x3 Course Course Course Narrative: 50-year-old male with history of alcoholism seen on July 28 and for same. Episodes of nausea and vomiting, bright red blood, reports that he was not drinking alcohol tell today, benign abdominal exam no tenderness to palpation. Will do LFTs with lipase. 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 Reevaluation(s) Reevaluation #1: Patient's lactic acid is elevated at 3.4. 2 L of fluids ordered. I will order abdominal CT scan, will recheck lactic acid after fluids are done. Reevaluation #2: Lactic acid elevated after 2 L of fluids 3.5. Lipase elevated will order another L of fluid spoke to hospitalist will admit patient for alcohol pancreatitis. Patient continues to have no abdominal tenderness no fever. With patient patient is aware of admission and agreeable. Medical Decision Making Lab Data Result diagrams: 08/13/20 18:07 08/13/20 18:06 Labs: Lab Results 08/13/20 08/13/20 08/13/20 Range/Units 18:06 18:06 18:06 WBC (4.8-10.8) X10*3/uL RBC (4.60-5.80) X10*6/uL Hgb (14.0-18.0) g/dl Hct (42-52) % MCV (80-98) fL MCH (27.0-33.0) pg MCHC (31.0-36.0) g/dl RDW (11.0-16.0) % Plt Count (160-400) X10*3/uL MPV (9.4-12.4) fL Immature Gran % (Auto) (0.0-0.4) % Neut % (Auto) (45-73) % Lymph % (Auto) (20-40) % [place] % (Auto) (2-11) % Eos % (Auto) (0-4) % Baso % (Auto) (0-2) % Lymph # (Auto) (1.2-4.9) X10*3/uL [place] # (Auto) (0.1-1.2) X10*3/uL Eos # (Auto) (0.0-0.4) X10*3/uL Baso # (Auto) (0.0-0.2) X10*3/uL Abs Immat Gran (auto) (0.00-0.03) X10*3/uL Absolute Neuts (auto) (2.0-8.3) X10*3/uL Absolute Nucleated RBC (0.0-0.012) X10*3/uL Nucleated RBC % (auto) (0.0-0.2) /100WBC Hold Blue Top SEE NOTE Sodium 140 (135-145) mmol/L Potassium 3.4 (3.3-5.1) mmol/L Chloride 100 (96-108) mmol/L Carbon Dioxide 23 (22-29) mmol/L Anion Gap 20 (12-20) BUN 8 L (9-16) mg/dL Creatinine 0.68 (0.5-1.4) mg/dL Estim Creat Clear Calc 132.7 Estimated GFR > 60 Random Glucose 114 D (60-115) mg/dL Lactic Acid (0.5-2.0) mmol/L Lactic Acid Fup @ 2Hr (0.5-2.0) mmol/L Calcium 9.4 (8.4-10.2) mg/dL Total Bilirubin 1.1 H (0.0-1.0) mg/dL Direct Bilirubin 0.6 H (0.0-0.5) mg/dL AST 289 H (5-37) U/L ALT 103 H (0-40) U/L Alkaline Phosphatase 109 D (39-117) U/L Ammonia (13-55) umol/L Total Protein 7.8 (6.5-8.0) g/dL Albumin 4.6 (3.5-5.0) g/dL Lipase 113 H (8-78) U/L Urine Color Urine Appearance Urine pH (5.0-8.0) Ur Specific [place] (1.005-1.025) Urine Protein (NEG-TRACE) MG/DL Urine Glucose (UA) (NEG) MG/DL Urine Ketones (NEG) MG/DL Urine Blood (NEG) Urine Nitrite (NEG) Ur Leukocyte Esterase (NEG) Ethyl Alcohol 335 H* mg/dL Coronavirus (PCR) (Negative) Influenza Type A (PCR) (Negative) Influenza Type B (PCR) (Negative) RSV RNA Qual (PCR) (Negative) 08/13/20 08/13/20 08/13/20 Range/Units 18:06 18:06 18:07 WBC 4.3 L (4.8-10.8) X10*3/uL RBC 4.47 L (4.60-5.80) X10*6/uL Hgb 15.6 (14.0-18.0) g/dl Hct 43.9 (42-52) % MCV 98.2 H (80-98) fL MCH 34.9 H (27.0-33.0) pg MCHC 35.5 (31.0-36.0) g/dl RDW 14.1 (11.0-16.0) % Plt Count 142 L (160-400) X10*3/uL MPV 9.9 (9.4-12.4) fL Immature Gran % (Auto) 0.2 (0.0-0.4) % Neut % (Auto) 29.6 L (45-73) % Lymph % (Auto) 54.3 H (20-40) % [place] % (Auto) 10.5 (2-11) % Eos % (Auto) 3.3 (0-4) % Baso % (Auto) 2.1 H (0-2) % Lymph # (Auto) 2.3 (1.2-4.9) X10*3/uL [place] # (Auto) 0.5 (0.1-1.2) X10*3/uL Eos # (Auto) 0.1 (0.0-0.4) X10*3/uL Baso # (Auto) 0.1 (0.0-0.2) X10*3/uL Abs Immat Gran (auto) 0.01 (0.00-0.03) X10*3/uL Absolute Neuts (auto) 1.3 L (2.0-8.3) X10*3/uL Absolute Nucleated RBC 0.000 (0.0-0.012) X10*3/uL Nucleated RBC % (auto) 0.0 (0.0-0.2) /100WBC Hold Blue Top Sodium (135-145) mmol/L Potassium (3.3-5.1) mmol/L Chloride (96-108) mmol/L Carbon Dioxide (22-29) mmol/L Anion Gap (12-20) BUN (9-16) mg/dL Creatinine (0.5-1.4) mg/dL Estim Creat Clear Calc Estimated GFR Random Glucose (60-115) mg/dL Lactic Acid 3.4 H* (0.5-2.0) mmol/L Lactic Acid Fup @ 2Hr (0.5-2.0) mmol/L Calcium (8.4-10.2) mg/dL Total Bilirubin (0.0-1.0) mg/dL Direct Bilirubin (0.0-0.5) mg/dL AST (5-37) U/L ALT (0-40) U/L Alkaline Phosphatase (39-117) U/L Ammonia 33 (13-55) umol/L Total Protein (6.5-8.0) g/dL Albumin (3.5-5.0) g/dL Lipase (8-78) U/L Urine Color Urine Appearance Urine pH (5.0-8.0) Ur Specific [place] (1.005-1.025) Urine Protein (NEG-TRACE) MG/DL Urine Glucose (UA) (NEG) MG/DL Urine Ketones (NEG) MG/DL Urine Blood (NEG) Urine Nitrite (NEG) Ur Leukocyte Esterase (NEG) Ethyl Alcohol mg/dL Coronavirus (PCR) (Negative) Influenza Type A (PCR) (Negative) Influenza Type B (PCR) (Negative) RSV RNA Qual (PCR) (Negative) 08/13/20 08/13/20 08/13/20 Range/Units 20:24 20:25 20:47 WBC (4.8-10.8) X10*3/uL RBC (4.60-5.80) X10*6/uL Hgb (14.0-18.0) g/dl Hct (42-52) % MCV (80-98) fL MCH (27.0-33.0) pg MCHC (31.0-36.0) g/dl RDW (11.0-16.0) % Plt Count (160-400) X10*3/uL MPV (9.4-12.4) fL Immature Gran % (Auto) (0.0-0.4) % Neut % (Auto) (45-73) % Lymph % (Auto) (20-40) % [place] % (Auto) (2-11) % Eos % (Auto) (0-4) % Baso % (Auto) (0-2) % Lymph # (Auto) (1.2-4.9) X10*3/uL [place] # (Auto) (0.1-1.2) X10*3/uL Eos # (Auto) (0.0-0.4) X10*3/uL Baso # (Auto) (0.0-0.2) X10*3/uL Abs Immat Gran (auto) (0.00-0.03) X10*3/uL Absolute Neuts (auto) (2.0-8.3) X10*3/uL Absolute Nucleated RBC (0.0-0.012) X10*3/uL Nucleated RBC % (auto) (0.0-0.2) /100WBC Hold Blue Top Sodium (135-145) mmol/L Potassium (3.3-5.1) mmol/L Chloride (96-108) mmol/L Carbon Dioxide (22-29) mmol/L Anion Gap (12-20) BUN (9-16) mg/dL Creatinine (0.5-1.4) mg/dL Estim Creat Clear Calc Estimated GFR Random Glucose (60-115) mg/dL Lactic Acid (0.5-2.0) mmol/L Lactic Acid Fup @ 2Hr 3.5 H* (0.5-2.0) mmol/L Calcium (8.4-10.2) mg/dL Total Bilirubin (0.0-1.0) mg/dL Direct Bilirubin (0.0-0.5) mg/dL AST (5-37) U/L ALT (0-40) U/L Alkaline Phosphatase (39-117) U/L Ammonia (13-55) umol/L Total Protein (6.5-8.0) g/dL Albumin (3.5-5.0) g/dL Lipase (8-78) U/L Urine Color YELLOW Urine Appearance CLEAR Urine pH 6.0 (5.0-8.0) Ur Specific [place] <= 1.005 (1.005-1.025) Urine Protein NEG (NEG-TRACE) MG/DL Urine Glucose (UA) NEG (NEG) MG/DL Urine Ketones 5 (NEG) MG/DL Urine Blood NEG (NEG) Urine Nitrite NEG (NEG) Ur Leukocyte Esterase NEG (NEG) Ethyl Alcohol mg/dL Coronavirus (PCR) NEGATIVE (Negative) Influenza Type A (PCR) NEGATIVE (Negative) Influenza Type B (PCR) NEGATIVE (Negative) RSV RNA Qual (PCR) NEGATIVE (Negative) Imaging Data CT scan - abdomen: Radiologist's impression: FINDINGS: LUNG BASES: The visualized lung bases are unremarkable. LIVER, GALLBLADDER, AND BILIARY TREE: There is diffuse low attenuation of liver parenchyma due to fatty change. Mild hepatomegaly. Right lobe of liver measures 21.5 cm superior-inferior. No focal liver lesion or intrahepatic bile duct dilatation The gallbladder is unremarkable with no evidence of radiopaque gallstones, gallbladder wall thickening, or obvious pericholecystic inflammatory changes. PANCREAS: Unremarkable. SPLEEN: Unremarkable. ADRENAL GLANDS: Unremarkable. KIDNEYS AND URETERS: The kidneys are normal in size, shape, and attenuation. No hydronephrosis, hydroureter, or calculi seen. No perinephric stranding. BLADDER: Unremarkable. GASTROINTESTINAL TRACT: No acute abnormality. There is no bowel wall thickening /edema. There is no bowel obstruction. There is a moderate to large volume of stool in the colon. The appendix is normal . The small bowel loops are unremarkable. The stomach is normal. There is no hiatal hernia. ABDOMINAL WALL: No significant hernia is appreciated. LYMPH NODES: Normal. VASCULAR: Unremarkable. PELVIC VISCERA: Unremarkable. OSSEOUS STRUCTURES: Vacuum disc phenomenon L5-S1. CT/CT abdomen pelvis w con IMPRESSION: 1. No acute abnormality. 2. Hepatic steatosis. Mild hepatomegaly. Discharge Plan Discharge Prescriptions: No Action No Known Home Meds RF: 0
[2020-08-13 18:31] LABS: Ammonia 33 umol/L (13-55)
[2020-08-13 18:35] LABS: Lactic Acid 3.4 mmol/L (0.5-2.0)
[2020-08-13 18:36] LABS: Ethanol 335 mg/dL
[2020-08-13 18:46] LABS: Alanine Aminotransferase 103 U/L (0-40); Albumin Level 4.6 g/dL (3.5-5.0); Alkaline Phosphatase 109 U/L (39-117); Anion Gap 20 (12-20); Aspartate Amino Transferase 289 U/L (5-37); Bilirubin Direct 0.6 mg/dL (0.0-0.5); Bilirubin Total 1.1 mg/dL (0.0-1.0); Blood Urea Nitrogen 8 mg/dL (9-16); Calcium 9.4 mg/dL (8.4-10.2); Carbon Dioxide 23 mmol/L (22-29); Chloride 100 mmol/L (96-108); Creatinine Clr Calc Pharmacy 132.7; Estimated Glomerular Filt Rate > 60; Glucose Random 114 mg/dL (60-115); Potassium 3.4 mmol/L (3.3-5.1); Sodium 140 mmol/L (135-145); Total Protein 7.8 g/dL (6.5-8.0)
[2020-08-13] MEDS: Pantoprazole Sodium 40 MG/10 ML VIAL IVPUSH (18:46)
[2020-08-13 19:00] LABS: Lipase 113 U/L (8-78)
[2020-08-13] MEDS: 0.9 % Sodium Chloride 1,000 ML 999 ML IV ×3 (19:00→21:42)
--- NOTE | 2020-08-13 19:43 | PC.NURSE ---
pt to ct at this time.
[2020-08-13] MEDS: iohexoL 350 MG/ML 100 ML INFUS..BTL IV (19:57)
[2020-08-13] MEDS: Thiamine HCL 100 MG TABLET PO (19:57)
[2020-08-13] MEDS: Multivitamin TABLET 1 TAB PO (19:57)
[2020-08-13] MEDS: Folic Acid 1 MG TABLET PO (19:57)
[2020-08-13 20:00] VITALS: BP 123/79; PULSE 76; RESP 15; TEMP 36.6; O2SAT 95
--- NOTE | 2020-08-13 20:03 | PC.NURSE ---
IVF continues to infuse.
[2020-08-13 20:11] LABS: Reflex Lactate? Lactic Acid Added
--- NOTE | 2020-08-13 20:33 | ED_ITS ---
HPI - Nausea/Vomiting/Diarrhea General Chief complaint: Nausea/Vomiting/Diarrhea Stated complaint: weakness, multiple Time Seen by Provider: 08/13/20 18:08 Source: patient Mode of arrival: ambulatory Limitations: no limitations History of Present Illness HPI Narrative: Patient with history of alcohol abuse alcoholic gastritis Lyme disease came to the ER for increased nausea vomiting for last few days unable to hold down anything down has been drinking alcohol but did not drink any alcohol today also complaining of bright blood in the vomitus denies any fever chills or cough. patient does have a history of pancreatitis patient denied any black stools no abdominal distension Related Data Previous Rx's Medication Instructions Recorded omeprazole 20 mg PO DAILY@0630 #30 cap 08/17/20 Allergies Allergy/AdvReac Type Severity Reaction Status Date / Time No Known Allergies Allergy Verified 08/15/20 11:01 Review of Systems Review of Systems: Constitutional : No Weight loss, No Fever, No Chills ENT/Mouth : No sore throat, No Rhinorrhea Eyes: No Eye Pain, No Swelling Cardiovascular : No Chest Pain, no palpitations Respiratory : No Cough, No Sputum, no shortness of breath Gastrointestinal : + Nausea, + Vomiting, No Diarrhea, + abdominal Pain, no black stools Genitourinary : No Dysuria, No Urinary Frequency Musculoskeletal : No joint pain, No Myalgias, No Joint Swelling Skin : No Skin Lesions, No rash Neuro : No Weakness, No Numbness, No Dizziness, No Headache Psych : No Anxiety/Panic, No Depression Heme/Lymph: No Bruising, No Lymphadenopathy Endocrine : No Polyuria, No Polydipsia All other systems reviewed and are negative [facility] Past Medical History Medical History Autoimmune disease Lyme disease Pancreatitis Surgical History No pertinent past surgical history Family History Family History Father Heart attack Mother No problems noted. Sister No problems noted. Daughter No problems noted. Social History Social History Household Members: Spouse and Friend(s) Housing: House Do you presently have visiting nurse or other home services: No Alcohol intake: current Alcohol intake frequency: 3 or more drinks per day Alcohol type: hard liquor Patient Tobacco Use Status: Current everyday Tobacco user Tobacco use type: Cigarette Cigarette Packs Per Day: 1 Cigarettes Per Day: 20.0 Years Smoked: 39 Substance Use Type: Marijuana Advance Directives: No Advance Directives Information Provided: No Current occupational status: unemployed Physical Exam Vital Signs: Vital Signs: Last Vital Signs Temp 98.0 F 08/17/20 07:08 Pulse 78 08/17/20 07:08 Resp 20 08/17/20 07:08 BP 138/88 08/17/20 07:08 Pulse Ox 98 08/17/20 07:08 Body Mass Index 25.1 Appearance: Alert. Oriented X3. in mild distress. Eyes: PERRLA, No Nystagmus ENT: Pharynx normal. Oral Mucosa moist Neck: Normal inspection. Neck supple. CVS: Normal heart rate and rhythm. Pulses normal. Respiratory: No respiratory distress. Equal air entry bilateral, no wheezing/rales/rhonchi Abdomen: Soft , epigastric tenderness +. Bowel sounds are present, no mass palpable, no CVA tenderness Skin: Skin warm and dry. Normal skin color. Normal skin turgor. Extremities: No lower extremity edema. No calf tenderness Neuro: Oriented X 3. No motor deficit. No sensory deficit.No cerebellar signs , cranial nerves II-XII intact MDM - Nausea/Vomiting/Diarrhea MDM Narrative Medical decision making narrative: Patient with acute gastritis alcohol abuse elevated elevated LFTs elevated lactic acid will admit patient for acute alcoholic gastritis with transaminitis Lab Data Attestation: I reviewed the patient's lab results. Result diagrams: 08/17/20 06:05 08/17/20 06:05 Labs: Lab Results 08/13/20 08/13/20 08/13/20 Range/Units 18:06 18:06 18:06 WBC (4.8-10.8) X10*3/uL RBC (4.60-5.80) X10*6/uL Hgb (14.0-18.0) g/dl Hct (42-52) % MCV (80-98) fL MCH (27.0-33.0) pg MCHC (31.0-36.0) g/dl RDW (11.0-16.0) % Plt Count (160-400) X10*3/uL MPV (9.4-12.4) fL Immature Gran % (Auto) (0.0-0.4) % Neut % (Auto) (45-73) % Lymph % (Auto) (20-40) % [place] % (Auto) (2-11) % Eos % (Auto) (0-4) % Baso % (Auto) (0-2) % Lymph # (Auto) (1.2-4.9) X10*3/uL [place] # (Auto) (0.1-1.2) X10*3/uL Eos # (Auto) (0.0-0.4) X10*3/uL Baso # (Auto) (0.0-0.2) X10*3/uL Abs Immat Gran (auto) (0.00-0.03) X10*3/uL Absolute Neuts (auto) (2.0-8.3) X10*3/uL Absolute Nucleated RBC (0.0-0.012) X10*3/uL Nucleated RBC % (auto) (0.0-0.2) /100WBC Hold Blue Top SEE NOTE Sodium 140 (135-145) mmol/L Potassium 3.4 (3.3-5.1) mmol/L Chloride 100 (96-108) mmol/L Carbon Dioxide 23 (22-29) mmol/L Anion Gap 20 (12-20) BUN 8 L (9-16) mg/dL Creatinine 0.68 (0.5-1.4) mg/dL Estim Creat Clear Calc 132.7 Estimated GFR > 60 Random Glucose 114 D (60-115) mg/dL Lactic Acid (0.5-2.0) mmol/L Lactic Acid Fup @ 2Hr (0.5-2.0) mmol/L Calcium 9.4 (8.4-10.2) mg/dL Total Bilirubin 1.1 H (0.0-1.0) mg/dL Direct Bilirubin 0.6 H (0.0-0.5) mg/dL AST 289 H (5-37) U/L ALT 103 H (0-40) U/L Alkaline Phosphatase 109 D (39-117) U/L Ammonia (13-55) umol/L Total Protein 7.8 (6.5-8.0) g/dL Albumin 4.6 (3.5-5.0) g/dL Lipase 113 H (8-78) U/L Urine Color Urine Appearance Urine pH (5.0-8.0) Ur Specific [place] (1.005-1.025) Urine Protein (NEG-TRACE) MG/DL Urine Glucose (UA) (NEG) MG/DL Urine Ketones (NEG) MG/DL Urine Blood (NEG) Urine Nitrite (NEG) Ur Leukocyte Esterase (NEG) Ethyl Alcohol 335 H* mg/dL Coronavirus (PCR) (Negative) Influenza Type A (PCR) (Negative) Influenza Type B (PCR) (Negative) RSV RNA Qual (PCR) (Negative) 08/13/20 08/13/20 08/13/20 Range/Units 18:06 18:06 18:07 WBC 4.3 L (4.8-10.8) X10*3/uL RBC 4.47 L (4.60-5.80) X10*6/uL Hgb 15.6 (14.0-18.0) g/dl Hct 43.9 (42-52) % MCV 98.2 H (80-98) fL MCH 34.9 H (27.0-33.0) pg MCHC 35.5 (31.0-36.0) g/dl RDW 14.1 (11.0-16.0) % Plt Count 142 L (160-400) X10*3/uL MPV 9.9 (9.4-12.4) fL Immature Gran % (Auto) 0.2 (0.0-0.4) % Neut % (Auto) 29.6 L (45-73) % Lymph % (Auto) 54.3 H (20-40) % [place] % (Auto) 10.5 (2-11) % Eos % (Auto) 3.3 (0-4) % Baso % (Auto) 2.1 H (0-2) % Lymph # (Auto) 2.3 (1.2-4.9) X10*3/uL [place] # (Auto) 0.5 (0.1-1.2) X10*3/uL Eos # (Auto) 0.1 (0.0-0.4) X10*3/uL Baso # (Auto) 0.1 (0.0-0.2) X10*3/uL Abs Immat Gran (auto) 0.01 (0.00-0.03) X10*3/uL Absolute Neuts (auto) 1.3 L (2.0-8.3) X10*3/uL Absolute Nucleated RBC 0.000 (0.0-0.012) X10*3/uL Nucleated RBC % (auto) 0.0 (0.0-0.2) /100WBC Hold Blue Top Sodium (135-145) mmol/L Potassium (3.3-5.1) mmol/L Chloride (96-108) mmol/L Carbon Dioxide (22-29) mmol/L Anion Gap (12-20) BUN (9-16) mg/dL Creatinine (0.5-1.4) mg/dL Estim Creat Clear Calc Estimated GFR Random Glucose (60-115) mg/dL Lactic Acid 3.4 H* (0.5-2.0) mmol/L Lactic Acid Fup @ 2Hr (0.5-2.0) mmol/L Calcium (8.4-10.2) mg/dL Total Bilirubin (0.0-1.0) mg/dL Direct Bilirubin (0.0-0.5) mg/dL AST (5-37) U/L ALT (0-40) U/L Alkaline Phosphatase (39-117) U/L Ammonia 33 (13-55) umol/L Total Protein (6.5-8.0) g/dL Albumin (3.5-5.0) g/dL Lipase (8-78) U/L Urine Color Urine Appearance Urine pH (5.0-8.0) Ur Specific [place] (1.005-1.025) Urine Protein (NEG-TRACE) MG/DL Urine Glucose (UA) (NEG) MG/DL Urine Ketones (NEG) MG/DL Urine Blood (NEG) Urine Nitrite (NEG) Ur Leukocyte Esterase (NEG) Ethyl Alcohol mg/dL Coronavirus (PCR) (Negative) Influenza Type A (PCR) (Negative) Influenza Type B (PCR) (Negative) RSV RNA Qual (PCR) (Negative) 08/13/20 08/13/20 08/13/20 Range/Units 20:24 20:25 20:47 WBC (4.8-10.8) X10*3/uL RBC (4.60-5.80) X10*6/uL Hgb (14.0-18.0) g/dl Hct (42-52) % MCV (80-98) fL MCH (27.0-33.0) pg MCHC (31.0-36.0) g/dl RDW (11.0-16.0) % Plt Count (160-400) X10*3/uL MPV (9.4-12.4) fL Immature Gran % (Auto) (0.0-0.4) % Neut % (Auto) (45-73) % Lymph % (Auto) (20-40) % [place] % (Auto) (2-11) % Eos % (Auto) (0-4) % Baso % (Auto) (0-2) % Lymph # (Auto) (1.2-4.9) X10*3/uL [place] # (Auto) (0.1-1.2) X10*3/uL Eos # (Auto) (0.0-0.4) X10*3/uL Baso # (Auto) (0.0-0.2) X10*3/uL Abs Immat Gran (auto) (0.00-0.03) X10*3/uL Absolute Neuts (auto) (2.0-8.3) X10*3/uL Absolute Nucleated RBC (0.0-0.012) X10*3/uL Nucleated RBC % (auto) (0.0-0.2) /100WBC Hold Blue Top Sodium (135-145) mmol/L Potassium (3.3-5.1) mmol/L Chloride (96-108) mmol/L Carbon Dioxide (22-29) mmol/L Anion Gap (12-20) BUN (9-16) mg/dL Creatinine (0.5-1.4) mg/dL Estim Creat Clear Calc Estimated GFR Random Glucose (60-115) mg/dL Lactic Acid (0.5-2.0) mmol/L Lactic Acid Fup @ 2Hr 3.5 H* (0.5-2.0) mmol/L Calcium (8.4-10.2) mg/dL Total Bilirubin (0.0-1.0) mg/dL Direct Bilirubin (0.0-0.5) mg/dL AST (5-37) U/L ALT (0-40) U/L Alkaline Phosphatase (39-117) U/L Ammonia (13-55) umol/L Total Protein (6.5-8.0) g/dL Albumin (3.5-5.0) g/dL Lipase (8-78) U/L Urine Color YELLOW Urine Appearance CLEAR Urine pH 6.0 (5.0-8.0) Ur Specific [place] <= 1.005 (1.005-1.025) Urine Protein NEG (NEG-TRACE) MG/DL Urine Glucose (UA) NEG (NEG) MG/DL Urine Ketones 5 (NEG) MG/DL Urine Blood NEG (NEG) Urine Nitrite NEG (NEG) Ur Leukocyte Esterase NEG (NEG) Ethyl Alcohol mg/dL Coronavirus (PCR) NEGATIVE (Negative) Influenza Type A (PCR) NEGATIVE (Negative) Influenza Type B (PCR) NEGATIVE (Negative) RSV RNA Qual (PCR) NEGATIVE (Negative) Discharge Plan Discharge Clinical Impression: Gastritis Patient Disposition: Admitted As Inpatient Interventions: Admission Worksheet (ED) Last Done: 08/13/20 23:45 Discharge Date/Time: 08/13/20 23:45
--- NOTE | 2020-08-13 20:43 | MHC.RECOVSUP ---
? Reason for consult Resources o Current location: ED12 o Identified substance use concern: Alcohol - Withdrawal - Support ? Intervention o Community resources provided o Harm reduction discussion ? Plan: o Patient to follow up with [facility] after discharge ? Additional information: Patient wanted resource to detoxes.. I was able to provide patient detox resource and hope for [place].. i tried finding a detox bed non was available..
[2020-08-13 20:55] LABS: Glucose Urine UA NEG (NEG); Leukocyte Esterase Urine NEG (NEG); Nitrite Urine NEG (NEG); Specific Gravity - Urine <= 1.005 (1.005-1.025); Urine Blood NEG (NEG); Urine Ketones 5 MG/DL (NEG); Urine Protein NEG (NEG-TRACE)
[2020-08-13 20:56] LABS: Appearance Urine CLEAR; Color Urine YELLOW
[2020-08-13 21:00] LABS: ~Lactic Acid-LAB USE ONLY 3.5 mmol/L (0.5-2.0)
--- NOTE | 2020-08-13 21:11 | PC.NURSE ---
per weigh and charge worker and ert, pt given permission to lay in bed. montioring needs.
[2020-08-13 21:12] LABS: Influenza A PCR NEGATIVE (Negative); Influenza B PCR NEGATIVE (Negative); Resp Syncy Virus RNA Qual PCR NEGATIVE (Negative); SARS COV2 PCR INHOUSE NEGATIVE (Negative)
--- NOTE | 2020-08-13 21:26 | PC.NURSE ---
per mlp, lactic is related to poor po intake + chronic etoh abuse. No need for zosyn or antibiotics
--- NOTE | 2020-08-13 21:27 | HE.PHANOTE ---
Pharmacy has completed the medication reconciliation and there were no significant medication issues requiring provider attention.
[2020-08-13] MEDS: Thiamine HCL 100 MG TABLET 200 MG PO (21:42)
--- NOTE | 2020-08-13 21:59 | PM.IMHP ---
History of Present Illness Date of Service: 08/13/20 Chief Complaint: Nausea and vomiting 50-year-old male with a past medical history of alcohol abuse, alcoholic gastritis, Lyme disease presented to the hospital with a chief complaint of nausea vomiting. Patient reports that over the past few days he has been having nausea and vomiting unable to keep anything down. Has been drinking alcohol but has not had any drink today. Also complains of blood in the vomitus. Denies any fevers chills cough. Denies any chest pain palpitations. Denies any numbness tingling. Reports abdominal discomfort secondary to vomiting. Review of all other systems is negative except mentioned above ER course: Per ER team patient's abdomen exam was benign. Patient appeared dry. Given IV fluids. Noted to have lactic acidosis and transaminitis. CT abdomen showed no acute findings. Admitted to the hospital for further management. [facility] Medical History Autoimmune disease Lyme disease Pancreatitis Family History Father Heart attack Mother No problems noted. Sister No problems noted. Daughter No problems noted. Surgical History No pertinent past surgical history Social History Household Members: Spouse and Friend(s) Housing: House Do you presently have visiting nurse or other home services: No Alcohol intake: current Alcohol intake frequency: 3 or more drinks per day Alcohol type: hard liquor Patient Tobacco Use Status: Current everyday Tobacco user Tobacco use type: Cigarette Cigarette Packs Per Day: 1 Cigarettes Per Day: 20.0 Years Smoked: 39 Substance Use Type: Marijuana Advance Directives: No Advance Directives Information Provided: No Current occupational status: unemployed Meds Allergies Allergy/AdvReac Type Severity Reaction Status Date / Time No Known Allergies Allergy Verified 08/15/20 11:01 Active Medications: Current Medications Generic Name Dose Route Start Last Admin Trade Name Freq PRN Reason Stop Dose Admin Famotidine 20 mg 08/14/20 09:00 Famotidine/Pf 20 Mg/2 Ml Vial IVPUSH BID HUSSEIN Folic Acid 1 mg 08/14/20 09:00 Folic Acid 1 Mg Tablet PO 08/17/20 08:59 DAILY HUSSEIN Hydromorphone HCl 0.5 mg 08/13/20 21:48 Hydromorphone Hcl 0.5 Mg/0.5 Ml Syringe IVPUSH Q6H PRN Pain, Severe (Pain Scale 7-10) Sodium Chloride 1,000 mls @ 999 mls/hr 08/13/20 21:18 08/13/20 21:42 Ns IV 08/13/20 22:18 999 mls/hr .Q1H1M STA Administration Dextrose/Sodium Chloride 1,000 mls @ 100 mls/hr 08/13/20 22:00 D51/2ns IVCONT .Q10H HUSSEIN Lorazepam 1 mg 08/13/20 21:48 Lorazepam 1 Mg Tablet PO 08/17/20 21:47 Q4H PRN Breakthrough alcohol withdrawa Multivitamins 1 tab 08/14/20 09:00 B-Complex With Vitamin C Tablet PO DAILY [facility] Ondansetron HCl 4 mg 08/13/20 21:48 Ondansetron Hcl 4 Mg/2 Ml Vial IVPUSH Q8H PRN Nausea and Vomiting Pharmacy Consult 1 each 08/13/20 21:25 Consult Rx Perform Med Rec MISCELLANE ONCE PRN Consult order Senna 17.2 mg 08/13/20 21:48 Sennosides 8.6 Mg Tablet PO BEDTIME PRN Constipation Sodium Chloride 3 ml 08/14/20 00:00 0.9 % Sodium Chloride Flush 3 Ml Syringe IVFLUSH QSHIFT [facility] Thiamine HCl 100 mg 08/14/20 09:00 Thiamine Hcl 100 Mg Tablet PO 08/17/20 08:59 DAILY [facility] Physical Exam Vital Signs and Narrative: Vital Signs: Last Vital Signs Temp 97.9 F 08/13/20 20:00 Pulse 76 08/13/20 20:00 Resp 15 08/13/20 20:00 BP 123/79 08/13/20 20:00 Pulse Ox 95 08/13/20 20:00 Body Mass Index 25.1 Gen: Appears be in no acute distress HEENT: NCAT, dry mucosa. Pulmonary: Vesicular breath sounds, fair air entry CVS: Normal S1-S2 Abdomen: BS+, Soft, Nontender Extremities: Warm well perfused Neuro: Alert and awake.mildly tremulous Results Labs CBC and Chem 7: 08/17/20 06:05 08/17/20 06:05 Labs: Laboratory Results - last 24 hr 08/13/20 08/13/20 08/13/20 18:06 18:06 18:06 MCV MCH MCHC RDW Plt Count MPV Immature Gran % (Auto) Neut % (Auto) Lymph % (Auto) Nobles % (Auto) Eos % (Auto) Baso % (Auto) Lymph # (Auto) Nobles # (Auto) Eos # (Auto) Baso # (Auto) Abs Immat Gran (auto) Absolute Neuts (auto) Absolute Nucleated RBC Nucleated RBC % (auto) Hold Blue Top SEE NOTE Anion Gap 20 Estim Creat Clear Calc 132.7 Estimated GFR > 60 Random Glucose 114 D Lactic Acid Lactic Acid Fup @ 2Hr Calcium 9.4 Total Bilirubin 1.1 H Direct Bilirubin 0.6 H AST 289 H ALT 103 H Alkaline Phosphatase 109 D Ammonia Total Protein 7.8 Albumin 4.6 Lipase 113 H Urine Color Urine Appearance Urine pH Ur Specific [place] Urine Protein Urine Glucose (UA) Urine Ketones Urine Blood Urine Nitrite Ur Leukocyte Esterase Ethyl Alcohol 335 H* Coronavirus (PCR) Influenza Type A (PCR) Influenza Type B (PCR) RSV RNA Qual (PCR) 08/13/20 08/13/20 08/13/20 18:06 18:06 18:07 MCV 98.2 H MCH 34.9 H MCHC 35.5 RDW 14.1 Plt Count 142 L MPV 9.9 Immature Gran % (Auto) 0.2 Neut % (Auto) 29.6 L Lymph % (Auto) 54.3 H Nobles % (Auto) 10.5 Eos % (Auto) 3.3 Baso % (Auto) 2.1 H Lymph # (Auto) 2.3 Nobles # (Auto) 0.5 Eos # (Auto) 0.1 Baso # (Auto) 0.1 Abs Immat Gran (auto) 0.01 Absolute Neuts (auto) 1.3 L Absolute Nucleated RBC 0.000 Nucleated RBC % (auto) 0.0 Hold Blue Top Anion Gap Estim Creat Clear Calc Estimated GFR Random Glucose Lactic Acid 3.4 H* Lactic Acid Fup @ 2Hr Calcium Total Bilirubin Direct Bilirubin AST ALT Alkaline Phosphatase Ammonia 33 Total Protein Albumin Lipase Urine Color Urine Appearance Urine pH Ur Specific [place] Urine Protein Urine Glucose (UA) Urine Ketones Urine Blood Urine Nitrite Ur Leukocyte Esterase Ethyl Alcohol Coronavirus (PCR) Influenza Type A (PCR) Influenza Type B (PCR) RSV RNA Qual (PCR) 08/13/20 08/13/20 08/13/20 20:24 20:25 20:47 MCV MCH MCHC RDW Plt Count MPV Immature Gran % (Auto) Neut % (Auto) Lymph % (Auto) Nobles % (Auto) Eos % (Auto) Baso % (Auto) Lymph # (Auto) Nobles # (Auto) Eos # (Auto) Baso # (Auto) Abs Immat Gran (auto) Absolute Neuts (auto) Absolute Nucleated RBC Nucleated RBC % (auto) Hold Blue Top Anion Gap Estim Creat Clear Calc Estimated GFR Random Glucose Lactic Acid Lactic Acid Fup @ 2Hr 3.5 H* Calcium Total Bilirubin Direct Bilirubin AST ALT Alkaline Phosphatase Ammonia Total Protein Albumin Lipase Urine Color YELLOW Urine Appearance CLEAR Urine pH 6.0 Ur Specific [place] <= 1.005 Urine Protein NEG Urine Glucose (UA) NEG Urine Ketones 5 Urine Blood NEG Urine Nitrite NEG Ur Leukocyte Esterase NEG Ethyl Alcohol Coronavirus (PCR) NEGATIVE Influenza Type A (PCR) NEGATIVE Influenza Type B (PCR) NEGATIVE RSV RNA Qual (PCR) NEGATIVE Imaging Radiologist's Impressions: Impressions Abdomen/Pelvis CT 08/13/20 19:25 IMPRESSION: 1. No acute abnormality. 2. Hepatic steatosis. Mild hepatomegaly. Assessment and Plan (1) Gastritis: Status: Acute 50-year-old male with a past medical history of alcohol abuse, alcoholic gastritis, Lyme disease presented to the hospital with a chief complaint of nausea vomiting and abdominal discomfort. Exam was benign. Nontender abdomen. Alcoholic gastritis: Pepcid IV b.i.d.. Clear liquid diet. Supportive care. Blood in the vomitus: Likely from retching versus Indy-Meneses tear. Could also be secondary to alcoholic gastritis. Gastroenterology consult. Alcohol abuse: Will monitor on [place] protocol. Thiamine, folate, multivitamins Lactic acidosis: IV fluids. DVT prophylaxis: SCD boots Code status: Full code
[2020-08-13 22:00] VITALS: BP 138/95; PULSE 82; RESP 18; TEMP 37.3; O2SAT 95
--- NOTE | 2020-08-13 22:09 | PC.NURSE ---
CIWA precautions in place. pt made high fall risk at this time. mentation appears to be orientated and alert x3. pt educated to use bedside urnial due to fall risk potential. pt verbalized understanding of education. pt has CIWA of 1 and is mildly tremoulus at this time.
[2020-08-13] MEDS: Dextrose 5 % and 0.45 % NaCl 1,000 ML 100 ML IVCONT (22:16)
[2020-08-13 22:32] LABS: Reflex Lactate? 2 Y
[2020-08-13 23:20] LABS: ~Lactic Acid-LAB USE ONLY 3.4 mmol/L (0.5-2.0)
--- NOTE | 2020-08-13 23:41 | PC.NURSE ---
2330-lavern bass unavailabl 2342-report given
[2020-08-14] VITALS: BP 133/83; PULSE 70; RESP 18; TEMP 36.5; O2SAT 94
--- NOTE | 2020-08-14 00:11 | PC.NURSE ---
belongings list done completed by this technical proposal writer. 1 nip of dorian donis removed from belongings. and brought to security. pt became verbally aggressive during belongings documentation. what is this [place] . pt educated to admission process. nip given to security. Pt is now on phone to discussing unfair treatment of ED staff. Floor Rn to be notified.
--- NOTE | 2020-08-14 00:14 | PC.NURSE ---
floor notified. chaparrita lanier to inform floor rn.
[2020-08-14 03:39] VITALS: BP 118/78; PULSE 88; RESP 18; TEMP 36.6; O2SAT 96
[2020-08-14 07:35] VITALS: BP 129/80; PULSE 57; RESP 20; TEMP 37; O2SAT 93
[2020-08-14 07:37] LABS: MANUAL DIFF FLAG NO
[2020-08-14 07:41] LABS: Basophils Absolute Auto 0.1 X10*3/uL (0.0-0.2); Basophils Percent Auto 1.8 % (0-2); Eosinophils Absolute Auto 0.1 X10*3/uL (0.0-0.4); Eosinophils Percent Auto 4.1 % (0-4); Hematocrit 38.9 % (42-52); Hemoglobin 13.8 g/dl (14.0-18.0); Imm Gran Abs Auto 0.01 X10*3/uL (0.00-0.03); Imm Gran Pct Auto 0.3 % (0.0-0.4); Lymphocytes Absolute Auto 1.7 X10*3/uL (1.2-4.9); Lymphocytes Percent Auto 49.7 % (20-40); Mean Corpuscular HGB Conc 35.5 g/dl (31.0-36.0); Mean Corpuscular Hemoglobin 34.8 pg (27.0-33.0); Mean Corpuscular Volume 98.2 fL (80-98); Mean Platelet Volume 9.9 fL (9.4-12.4); Monocytes Absolute Auto 0.4 X10*3/uL (0.1-1.2); Monocytes Percent Auto 10.6 % (2-11); Neutrophils Absolute Auto 1.1 X10*3/uL (2.0-8.3); Neutrophils Percent Auto 33.5 % (45-73); Platelet Count 118 X10*3/uL (160-400); Red Blood Count 3.96 X10*6/uL (4.60-5.80); Red Cell Distribution Width 13.9 % (11.0-16.0); White Blood Count 3.4 X10*3/uL (4.8-10.8)
[2020-08-14 07:58] LABS: Triglycerides 64 mg/dL
[2020-08-14 08:04] LABS: Alanine Aminotransferase 87 U/L (0-40); Albumin Level 3.9 g/dL (3.5-5.0); Alkaline Phosphatase 87 U/L (39-117); Aspartate Amino Transferase 228 U/L (5-37); Bilirubin Direct 0.7 mg/dL (0.0-0.5); Bilirubin Total 1.5 mg/dL (0.0-1.0); Total Protein 6.3 g/dL (6.5-8.0)
[2020-08-14 08:14] LABS: Lactic Acid 2.5 mmol/L (0.5-2.0)
[2020-08-14 08:16] LABS: Anion Gap 19 (12-20); Blood Urea Nitrogen 4 mg/dL (9-16); Calcium 8.3 mg/dL (8.4-10.2); Carbon Dioxide 23 mmol/L (22-29); Chloride 100 mmol/L (96-108); Creatinine Clr Calc Pharmacy 150.3; Estimated Glomerular Filt Rate > 60; Glucose Random 92 mg/dL (60-115); Magnesium 1.3 mg/dL (1.6-2.6); Potassium 3.2 mmol/L (3.3-5.1); Sodium 139 mmol/L (135-145)
[2020-08-14] MEDS: Thiamine HCL 100 MG TABLET PO (09:13)
[2020-08-14] MEDS: Dextrose 5 % and 0.45 % NaCl 1,000 ML 100 ML IVCONT ×2 (09:13→19:41)
[2020-08-14] MEDS: Folic Acid 1 MG TABLET PO (09:13)
[2020-08-14 09:35] LABS: Reflex Lactate? Lactic Acid Added
[2020-08-14] MEDS: Potassium Chloride Packet 20 MEQ PACKET 40 MEQ PO (10:48)
[2020-08-14] MEDS: Magnesium Sulfate/H2O 2 GM/50 ML PIGGYBACK IV (10:48)
[2020-08-14] MEDS: PHENobarbitaL sodium 130 MG/ML VIAL 234 MG IM (10:49)
[2020-08-14] MEDS: Pantoprazole Sodium 40 MG/10 ML VIAL IVPUSH ×2 (10:49→15:50)
[2020-08-14 11:34] VITALS: BP 140/87; PULSE 59; RESP 20; TEMP 36.4; O2SAT 98
[2020-08-14 13:10] VITALS: BMI 25.1
[2020-08-14] MEDS: PHENobarbitaL sodium 130 MG/ML VIAL 175 MG IM ×2 (13:25→16:32)
[2020-08-14] MEDS: ondansetron HCL 4 MG/2 ML VIAL IVPUSH (13:31)
--- NOTE | 2020-08-14 13:44 | P.PNIM_ITS ---
Subjective Subjective Date of Service: 08/14/20 Interval History: Gastritis, GI bleed, alcohol withdrawal Review of Systems Patient is that overnight did not had any episode of blood in the vomitus or in the stool. Denies any chest pain or shortness of breath or abdominal pain or fever or chills. Patient is very tremulous and somewhat sweaty says that he is probably going into withdrawals due to alcohol. Also feels anxious Physical Exam Vital Signs: Vital Signs: Last Vital Signs Temp 97.6 F 08/14/20 11:34 Pulse 59 08/14/20 11:34 Resp 20 08/14/20 11:34 BP 140/87 H 08/14/20 11:34 Pulse Ox 98 08/14/20 11:34 Body Mass Index 25.1 Physical exam: Constitutional: Noted acute distress Cvs: rrr, [id number] , no murmur res: clear to auscultation ,no rhonchii or wheezing abd: no rebound or guarding ,nt, bs present. ext pulses present , no cyanosis neuro: axo3 , nonfocal. seems tramulous and sweaty , anxious Objective Data Current Medications Generic Name Dose Route Start Last Admin Trade Name Freq PRN Reason Stop Dose Admin Folic Acid 1 mg 08/14/20 09:00 08/14/20 09:13 Folic Acid 1 Mg Tablet PO 08/17/20 08:59 1 mg DAILY HUSSEIN Administration Hydromorphone HCl 0.5 mg 08/13/20 21:48 Hydromorphone Hcl 0.5 Mg/0.5 Ml Syringe IVPUSH Q6H PRN Pain, Severe (Pain Scale 7-10) Dextrose/Sodium Chloride 1,000 mls @ 100 mls/hr 08/13/20 22:00 08/14/20 09:13 D51/2ns IVCONT 100 mls/hr .Q10H HUSSEIN Administration Lorazepam 1 mg 08/13/20 21:48 Lorazepam 1 Mg Tablet PO 08/17/20 21:47 Q4H PRN Breakthrough alcohol withdrawa Medication 1 each 08/15/20 09:00 No Benzodiazepines MISCELLANE DAILY HUSSEIN Multivitamins 1 tab 08/14/20 09:00 08/14/20 09:13 B-Complex With Vitamin C Tablet PO 1 tab DAILY HUSSEIN Administration Ondansetron HCl 4 mg 08/13/20 21:48 08/14/20 13:31 Ondansetron Hcl 4 Mg/2 Ml Vial IVPUSH 4 mg Q8H PRN Administration Nausea and Vomiting Pantoprazole Sodium 40 mg 08/14/20 10:00 08/14/20 10:49 Pantoprazole Sodium 40 Mg/10 Ml Vial IVPUSH 40 mg BID@0630,1630 [facility] Administration Pharmacy Consult 1 each 08/13/20 21:25 Consult Rx Perform Med Rec MISCELLANE ONCE PRN Consult order Pharmacy Consult 1 each 08/14/20 09:54 Consult Rx Etoh Phenob Dosing MISCELLANE ONCE PRN Consult order Protocol Phenobarbital 45 mg 08/14/20 21:00 Phenobarbital 15 Mg Tablet PO 08/16/20 09:01 BID [facility] Protocol Phenobarbital 30 mg 08/16/20 21:00 Phenobarbital 30 Mg Tablet PO 08/18/20 09:01 BID [facility] Protocol Phenobarbital 30 mg 08/19/20 09:00 Phenobarbital 30 Mg Tablet PO 08/20/20 09:01 DAILY [facility] Protocol Phenobarbital Sodium 175 mg 08/14/20 13:30 08/14/20 13:25 Phenobarbital Sodium 130 Mg/Ml Vial IM 08/14/20 16:31 175 mg Q3H [facility] Administration Protocol Senna 17.2 mg 08/13/20 21:48 Sennosides 8.6 Mg Tablet PO BEDTIME PRN Constipation Sodium Chloride 3 ml 08/14/20 00:00 08/14/20 09:13 0.9 % Sodium Chloride Flush 3 Ml Syringe IVFLUSH Not Given QSHIFT [facility] Thiamine HCl 100 mg 08/14/20 09:00 08/14/20 09:13 Thiamine Hcl 100 Mg Tablet PO 08/17/20 08:59 100 mg DAILY [facility] Administration Labs CBC & Chem 7: 08/14/20 07:24 08/14/20 07:24 Assessment and Plan (1) Gastritis: Status: Acute Assessment and Plan: 50-year-old male with a past medical history of alcohol abuse, alcoholic gastritis, Lyme disease presented to the hospital with a chief complaint of nausea vomiting and abdominal discomfort. Exam was benign. Nontender abdomen. 1.Alcoholic gastritis: protonix IV b.i.d.. Clear liquid diet. Supportive care. lft's slightly improving lactic acidosis -probable related to etoh and dehydration Continue hydration. 2. Hypomagnesemia/hypokalemia: Added supplements for both. Monitor electrolytes closely. 3..Blood in the vomitus: thought to be Likely from retching versus Indy- Meneses tear. Could also be secondary to alcoholic gastritis. Gastroenterology consult. 4.Alcohol withdrawal: Patient seems to have will be in alcohol withdrawal, started on phenobarb protocol, Will monitor on CIWA protocol. Thiamine, folate, multivitamins
[2020-08-14 15:27] VITALS: BP 150/84; PULSE 61; RESP 18; TEMP 37; O2SAT 98
[2020-08-14] MEDS: 0.9 % Sodium Chloride Flush 3 ML SYRINGE IVFLUSH (15:50)
--- NOTE | 2020-08-14 16:08 | MHC.CM.PN ---
CM MET WITH PT WHO REPORTS HE LIVES WITH HIS AND IS INDEPENDENT WITH ALL CARE AND MOBILITY. PT DENIES HAVING ANY DME OR SERVICES IN THE HOME. PT REPORTS HE DOES NOT HAVE HEALTH INSURANCE AT THIS TIME DUE TO RECENT LAY OFF. PT REPORTS HE ALREADY RECEIVED A CALL FROM [facility] AND THEY ARE INITIATING A [employer] APPLICATION. PT IS UNSURE IF HE HAS EVER DONE A HCP AND PER CONVERSATION, CM WILL REVISIT THIS TOPIC WITH HIM TOMORROW AND ASSIST IN COMPLETION OF ONE IF INDICATED. CURRENT DC PLAN IS HOME WITH NO SERVICES PT WILL SELF ARRANGE TRANSPORTATION
--- NOTE | 2020-08-14 16:59 | P.EN_ITS ---
Event Note Date of Service: 08/14/20 Event Note: GI Consult-Full note dictated-Hx via patient and EMR Imp: 50 yo male with history of EtOH abuse presenting with > 1 month of N/V and intermittent hematemesis. Denies any NSAIDs/ASA use nor melena/BRBPR. He has had no vomiting nor bleeding today. His abdominal exam is benign. His blood count appears stable. His liver studes are c/w some EtOH-induced hepatitis. His CT is unrevealing. Diff dx: Esophagitis, Indy-Meneses tear, PUD, gastritis. I don't think this re presents a variceal bleed. Rec: Continue IV PPI, F/U Hgb and PT/INR. EGD with MAC 08/15. Full consent obtained from him for this, including risks of bleeding and perforation. F/U LFT's re: EtOH-induced hepatitis. D/W patient in detail. He was comfortable with this plan. Thanks
--- NOTE | 2020-08-14 17:08 | MHC.SHP ---
Pre-Procedural Eval Section A The patient is an INPATIENT: Yes The History & Physical has been completed within 30 days and I have reviewed it.: Yes Section B Chief Complaint: Pancreatitis Allergies: Allergies Allergy/AdvReac Type Severity Reaction Status Date / Time No Known Allergies Allergy Verified 05/22/20 09:37 Plan I have reviewed the history and physical and performed a pertinent physical examination on my patient. No changes have occurred unless specified.
[2020-08-14 19:09] VITALS: BP 131/71; PULSE 65; RESP 20; TEMP 37.1; O2SAT 96
[2020-08-14] MEDS: PHENobarbitaL 15 MG TABLET 45 MG PO (21:32)
[2020-08-15] VITALS (11 sets, daily range): BP systolic 119–154; BP diastolic 77–100; PULSE 57–88; RESP 12–20; TEMP 36.3–37; O2SAT 96–100
[2020-08-15] MEDS: 0.9 % Sodium Chloride Flush 3 ML SYRINGE IVFLUSH ×2 (00:46→17:01)
--- NOTE | 2020-08-15 01:39 | CONS_ITS ---
DATE OF SERVICE: 08/14/2020 REASON FOR CONSULTATION: Nausea, vomiting, hematemesis, and elevated LFTs. HISTORY OF PRESENT ILLNESS: The patient is a 50-year-old male with a longstanding history of alcohol abuse, who came to the ER for evaluation of ongoing issues with nausea, vomiting, and some hematemesis. He describes that this has been going on for about a month or month and a half. He describes frequent episodes of retching and vomiting of bile with bright red blood. He denies any significant heartburn nor abdominal pain. He has been drinking at least 5 shots of alcohol nightly. He does smoke. He denies using any aspirin nor NSAIDs. He denies any previous history of GI bleeding nor ulcer disease. He has never had an upper endoscopy. He has not noticed any signs of jaundice at home. Here in the hospital, he has had no further bleeding since being up on the medical floor. He denies any melena nor hematochezia. He has been afebrile. He denies any known family history of GI malignancy nor ulcer disease. He does not use any significant amounts of aspirin or NSAIDs. He denies a history of liver disease nor alcohol induced hepatitis in regard to his drinking of alcohol. MEDICATIONS: At home, none. His medications here in the hospital include IV Protonix, vitamins, folic acid, Dilaudid p.r.n., Ativan p.r.n., multivitamins, magnesium, Zofran p.r.n., phenobarbital, Symbicort, and thiamine. PAST MEDICAL HISTORY: He describes a history of Lyme disease and some type of autoimmune disease. He denies any surgeries. He denies history of heart disease, diabetes, stroke, nor lung disease. Alcohol abuse. SOCIAL HISTORY: He is currently not working. He does smoke. Alcohol abuse. PHYSICAL EXAMINATION: GENERAL: The patient is a pleasant, cooperative, alert male. SKIN: Warm and dry. Anicteric sclerae. NECK: Supple without lymphadenopathy. CHEST: Clear: CARDIAC: Normal S1, S2. ABDOMEN: Soft, nondistended, and nontender without organomegaly or mass. LABORATORY DATA: White blood cell count 4.3, platelets 142,000, hemoglobin on admission was 15.6 compared to 14.7 earlier this month. Hemoglobin was 13.8 today. His PT on July 28 was 11.9 with INR 1.0. Sodium 139, potassium 3.2, chloride 100, CO2 23, BUN 4, creatinine 0.6. Total bilirubin is 1.5, AST 228, ALT 87, albumin 3.9. His alcohol level on admission was 335. IMPRESSION: Given the patient's clinical history of vomiting with some blood mixed in the vomitus, this seems most consistent with probable esophagitis, Indy-Meneses tear, gastritis, and/or ulcer disease. He appears stable with a benign abdomen and stable hemoglobin. As such, I would recommend upper endoscopy tomorrow for further evaluation. Full consent has been obtained from him for this, including risks of bleeding and perforation. In the meantime, I would continue his intravenous PPI and follow up his hemoglobin. I would also check a followup PT/INR. It does appear that he has some component of alcohol-induced hepatitis as well given the LFT findings. I would continue to observe him in this regard and I do not think he requires steroids at this time. Thank you for this consultation. MD TOMASZ Gibson/BRANDON / [id number] [email or web address]
[2020-08-15] MEDS: Dextrose 5 % and 0.45 % NaCl 1,000 ML 100 ML IVCONT ×2 (04:36→21:52)
[2020-08-15] MEDS: Pantoprazole Sodium 40 MG/10 ML VIAL IVPUSH (05:11)
[2020-08-15 06:23] LABS: MANUAL DIFF FLAG SCAN; PLT CLUMP 1; SCAN SMEAR FLAG 1
[2020-08-15 06:25] LABS: Basophils Absolute Auto 0.1 X10*3/uL (0.0-0.2); Basophils Percent Auto 1.6 % (0-2); Eosinophils Absolute Auto 0.1 X10*3/uL (0.0-0.4); Eosinophils Percent Auto 2.2 % (0-4); Hematocrit 39.8 % (42-52); Hemoglobin 13.7 g/dl (14.0-18.0); Imm Gran Abs Auto 0.02 X10*3/uL (0.00-0.03); Imm Gran Pct Auto 0.4 % (0.0-0.4); Lymphocytes Absolute Auto 1.4 X10*3/uL (1.2-4.9); Mean Corpuscular HGB Conc 34.4 g/dl (31.0-36.0); Mean Corpuscular Hemoglobin 34.1 pg (27.0-33.0); Mean Platelet Volume 11.2 fL (9.4-12.4); Monocytes Absolute Auto 0.4 X10*3/uL (0.1-1.2); Monocytes Percent Auto 8.7 % (2-11); Neutrophils Absolute Auto 2.5 X10*3/uL (2.0-8.3); Neutrophils Percent Auto 56.1 % (45-73); Platelet Count 109 X10*3/uL (160-400); Red Blood Count 4.02 X10*6/uL (4.60-5.80); Red Cell Distribution Width 13.4 % (11.0-16.0); White Blood Count 4.5 X10*3/uL (4.8-10.8)
[2020-08-15 06:42] LABS: Prothrombin Time 12.2 SEC (10.8-13.0)
[2020-08-15 06:51] LABS: SLIDE REVIEW VERIFIED
[2020-08-15 07:11] LABS: Alanine Aminotransferase 125 U/L (0-40); Albumin Level 3.8 g/dL (3.5-5.0); Alkaline Phosphatase 90 U/L (39-117); Anion Gap 16 (12-20); Aspartate Amino Transferase 358 U/L (5-37); Bilirubin Direct 1.3 mg/dL (0.0-0.5); Bilirubin Total 2.9 mg/dL (0.0-1.0); Blood Urea Nitrogen 4 mg/dL (9-16); Carbon Dioxide 23 mmol/L (22-29); Chloride 99 mmol/L (96-108); Creatinine Clr Calc Pharmacy 143.2; Estimated Glomerular Filt Rate > 60; Glucose Random 109 mg/dL (60-115); Potassium 3.5 mmol/L (3.3-5.1); Sodium 134 mmol/L (135-145); Total Protein 6.2 g/dL (6.5-8.0)
--- NOTE | 2020-08-15 07:19 | HO.PM.IMPN ---
Subjective Subjective Date of Service: 08/15/20 Interval History: Alcohol withdrawal, GI bleed. Review of Systems Seems less tremulous, Denies any overnight vomiting with blood or any stool with blood. Physical Exam Vital Signs: Vital Signs: Last Vital Signs Temp 98.6 F 08/15/20 04:00 Pulse 57 08/15/20 04:00 Resp 20 08/15/20 04:00 BP 119/77 08/15/20 04:00 Pulse Ox 98 08/15/20 04:00 Body Mass Index 25.1 Physical exam: Cvs: rrr, [id number] , no murmur res: clear to auscultation ,no rhonchii or wheezing abd: no rebound or guarding ,nt, bs present. ext pulses present , no cyanosis neuro: axo3 , nonfocal. Objective Data Current Medications Generic Name Dose Route Start Last Admin Trade Name Freq PRN Reason Stop Dose Admin Folic Acid 1 mg 08/14/20 09:00 08/14/20 09:13 Folic Acid 1 Mg Tablet PO 08/17/20 08:59 1 mg DAILY HUSSEIN Administration Hydromorphone HCl 0.5 mg 08/13/20 21:48 Hydromorphone Hcl 0.5 Mg/0.5 Ml Syringe IVPUSH Q6H PRN Pain, Severe (Pain Scale 7-10) Dextrose/Sodium Chloride 1,000 mls @ 100 mls/hr 08/13/20 22:00 08/15/20 04:36 D51/2ns IVCONT 100 mls/hr .Q10H HUSSEIN Administration Lorazepam 1 mg 08/13/20 21:48 Lorazepam 1 Mg Tablet PO 08/17/20 21:47 Q4H PRN Breakthrough alcohol withdrawa Medication 1 each 08/15/20 09:00 No Benzodiazepines MISCELLANE DAILY HUSSEIN Multivitamins 1 tab 08/14/20 09:00 08/14/20 09:13 B-Complex With Vitamin C Tablet PO 1 tab DAILY HUSSEIN Administration Ondansetron HCl 4 mg 08/13/20 21:48 08/14/20 13:31 Ondansetron Hcl 4 Mg/2 Ml Vial IVPUSH 4 mg Q8H PRN Administration Nausea and Vomiting Pantoprazole Sodium 40 mg 08/14/20 10:00 08/15/20 05:11 Pantoprazole Sodium 40 Mg/10 Ml Vial IVPUSH 40 mg BID@[id number] [facility] Administration Pharmacy Consult 1 each 08/13/20 21:25 Consult Rx Perform Med Rec MISCELLANE ONCE PRN Consult order Pharmacy Consult 1 each 08/14/20 09:54 Consult Rx Etoh Phenob Dosing MISCELLANE ONCE PRN Consult order Protocol Phenobarbital 45 mg 08/14/20 21:00 08/14/20 21:32 Phenobarbital 15 Mg Tablet PO 08/16/20 09:01 45 mg BID HUSSEIN Administration Protocol Phenobarbital 30 mg 08/16/20 21:00 Phenobarbital 30 Mg Tablet PO 08/18/20 09:01 BID HUSSEIN Protocol Phenobarbital 30 mg 08/19/20 09:00 Phenobarbital 30 Mg Tablet PO 08/20/20 09:01 DAILY [facility] Protocol Senna 17.2 mg 08/13/20 21:48 Sennosides 8.6 Mg Tablet PO BEDTIME PRN Constipation Sodium Chloride 3 ml 08/14/20 00:00 08/15/20 00:46 0.9 % Sodium Chloride Flush 3 Ml Syringe IVFLUSH 3 ml QSHIFT [facility] Administration Thiamine HCl 100 mg 08/14/20 09:00 08/14/20 09:13 Thiamine Hcl 100 Mg Tablet PO 08/17/20 08:59 100 mg DAILY [facility] Administration Labs CBC & Chem 7: 08/17/20 06:05 08/17/20 06:05 Microbiology Microbiology Results: Microbiology 08/13/20 18:05 Blood - Venous Blood Culture - Preliminary No growth after 24 hours. 08/13/20 18:05 Blood - Venous Blood Culture - Preliminary No growth after 24 hours. Assessment and Plan (1) Alcohol dependence with withdrawal: Status: Acute Assessment and Plan: 50-year-old male with a past medical history of alcohol abuse, alcoholic gastritis, Lyme disease presented to the hospital with a chief complaint of nausea vomiting and abdominal discomfort. Exam was benign. Nontender abdomen. 1.Alcoholic gastritis: protonix IV b.i.d.. Clear liquid diet. Supportive care. lft's slightly improving lactic acidosis -probable related to etoh and dehydration Continue hydration. Gi sawthepatient-EGDdone : 1. Hiatal hernia 2. Mild antral gastritis 3. Mild duodenitis in the duodenal bulb will switchg to pop ppi 2. Hypomagnesemia: hypokalemia seems better magnesium boderline,Monitor electrolytes closely. 3..Blood in the vomitus: thought to be Likely from retching versus Indy-Meneses tear. Could also be secondary to alcoholic gastritis. Gastroenterology consult. 4.Alcohol withdrawal: Patient seems to have will be in alcohol withdrawal, started on phenobarb protocol, Will monitor on CIWA protocol. Thiamine, folate, multivitamins
[2020-08-15 07:39] LABS: Alanine Aminotransferase 127 U/L (0-40); Albumin Level 3.8 g/dL (3.5-5.0); Alkaline Phosphatase 95 U/L (39-117); Aspartate Amino Transferase 372 U/L (5-37); Bilirubin Direct 1.3 mg/dL (0.0-0.5); Bilirubin Total 2.9 mg/dL (0.0-1.0); Magnesium 1.5 mg/dL (1.6-2.6); Total Protein 6.2 g/dL (6.5-8.0)
--- NOTE | 2020-08-15 12:03 | HO.ANESPROP2 ---
[facility] Active Problems Active Problems: All Active Problems (Updated 08/14/20 @ 06:27 by Gypsy Isabel) Gastritis (Acute) Past Medical History Medical History Autoimmune disease Lyme disease Pancreatitis Family History Family History Father Heart attack Mother No problems noted. Sister No problems noted. Daughter No problems noted. Surgical History Surgical History No pertinent past surgical history Social History Social History Household Members: Spouse and Friend(s) Housing: House Do you presently have visiting nurse or other home services: No Alcohol intake: current Alcohol intake frequency: 3 or more drinks per day Alcohol type: hard liquor Patient Tobacco Use Status: Current everyday Tobacco user Tobacco use type: Cigarette Cigarette Packs Per Day: 1 Cigarettes Per Day: 20.0 Years Smoked: 39 Smoked in Last 30 Days: Yes Patient Interested in Nicotine Replacement: Yes (Pt would like nicotine patch) Patient Given Instructions on How to Stop Smoking: No (Pt not interested) Use of substances other than those prescribed or required for medical reasons: No Substance Use Type: Marijuana Currently Displaying Signs/Symptoms of Drug Intoxication Withdrawal: No Have you been hit, kicked, punched, or otherwise hurt by someone within the past year? If so, by whom?: No Do you feel safe in your current relationship?: Yes Is there a partner from a previous relationship who is making you feel unsafe now?: No Are you made to feel afraid or neglected: No Yazidism Healthcare Practices: Baptism Are you DNR?: No Advance Directives: No Advance Directives Information Provided: Yes Advance Directives on File: No Do you have thoughts of harming others: None Do you have a plan to hurt others: No Plan Recently lost weight without trying: Yes How much weight loss: 14-23 pounds Eating poorly because of decreased appetite: Yes Nutrition screen score: 5 Nutrition Risks: Poor intake 0-25% >4 days Poor oral hygiene: Yes Current occupational status: unemployed Meds Allergies Allergy/AdvReac Type Severity Reaction Status Date / Time No Known Allergies Allergy Verified 08/15/20 11:01 Active Medications: Current Medications Generic Name Dose Route Start Last Admin Trade Name Freq PRN Reason Stop Dose Admin Folic Acid 1 mg 08/14/20 09:00 08/14/20 09:13 Folic Acid 1 Mg Tablet PO 08/17/20 08:59 1 mg DAILY HUSSEIN Administration Hydromorphone HCl 0.5 mg 08/13/20 21:48 Hydromorphone Hcl 0.5 Mg/0.5 Ml Syringe IVPUSH Q6H PRN Pain, Severe (Pain Scale 7-10) Dextrose/Sodium Chloride 1,000 mls @ 100 mls/hr 08/13/20 22:00 08/15/20 10:50 D51/2ns IVCONT 0 mls/hr .Q10H HUSSEIN Infusion Lorazepam 1 mg 08/13/20 21:48 Lorazepam 1 Mg Tablet PO 08/17/20 21:47 Q4H PRN Breakthrough alcohol withdrawa Medication 1 each 08/15/20 09:00 No Benzodiazepines MISCELLANE DAILY HUSSEIN Multivitamins 1 tab 08/14/20 09:00 08/14/20 09:13 B-Complex With Vitamin C Tablet PO 1 tab DAILY HUSSEIN Administration Ondansetron HCl 4 mg 08/13/20 21:48 08/14/20 13:31 Ondansetron Hcl 4 Mg/2 Ml Vial IVPUSH 4 mg Q8H PRN Administration Nausea and Vomiting Pantoprazole Sodium 40 mg 08/14/20 10:00 08/15/20 05:11 Pantoprazole Sodium 40 Mg/10 Ml Vial IVPUSH 40 mg BID@0630,1630 [facility] Administration Pharmacy Consult 1 each 08/13/20 21:25 Consult Rx Perform Med Rec MISCELLANE ONCE PRN Consult order Pharmacy Consult 1 each 08/14/20 09:54 Consult Rx Etoh Phenob Dosing MISCELLANE ONCE PRN Consult order Protocol Phenobarbital 45 mg 08/14/20 21:00 08/14/20 21:32 Phenobarbital 15 Mg Tablet PO 08/16/20 09:01 45 mg BID HUSSEIN Administration Protocol Phenobarbital 30 mg 08/16/20 21:00 Phenobarbital 30 Mg Tablet PO 08/18/20 09:01 BID HUSSEIN Protocol Phenobarbital 30 mg 08/19/20 09:00 Phenobarbital 30 Mg Tablet PO 08/20/20 09:01 DAILY HUSESIN Protocol Senna 17.2 mg 08/13/20 21:48 Sennosides 8.6 Mg Tablet PO BEDTIME PRN Constipation Sodium Chloride 3 ml 08/14/20 00:00 08/15/20 09:03 0.9 % Sodium Chloride Flush 3 Ml Syringe IVFLUSH Not Given QSHIFT HUSSEIN Thiamine HCl 100 mg 08/14/20 09:00 08/14/20 09:13 Thiamine Hcl 100 Mg Tablet PO 08/17/20 08:59 100 mg DAILY HUSSEIN Administration Home Medications Medication Instructions Recorded Confirmed Last Taken Type No Known Home Meds 08/13/20 08/13/20 Unknown History Exam Exam Date and Time: August 15, 2020 1203 Height,Weight and Vital Signs: Height 5 ft 10 in Weight 79.379 kg Last Vital Signs Temp 97.3 F 08/15/20 11:01 Pulse 59 08/15/20 11:01 Resp 16 08/15/20 11:01 BP 128/84 08/15/20 11:01 Pulse Ox 96 08/15/20 11:01 Pertinent Lab Results Pertinent Lab Results: Laboratory Tests 08/13/20 08/13/20 08/13/20 18:06 18:06 18:06 WBC RBC Hgb Hct MCV MCH MCHC RDW Plt Count MPV Immature Gran % (Auto) Neut % (Auto) Lymph % (Auto) Wilson % (Auto) Eos % (Auto) Baso % (Auto) Lymph # (Auto) Wilson # (Auto) Eos # (Auto) Baso # (Auto) Abs Immat Gran (auto) Absolute Neuts (auto) Absolute Nucleated RBC Nucleated RBC % (auto) Smear Tech's Comments PT INR Hold Blue Top SEE NOTE Sodium 140 Potassium 3.4 Chloride 100 Carbon Dioxide 23 Anion Gap 20 BUN 8 L Creatinine 0.68 Estim Creat Clear Calc 132.7 Estimated GFR > 60 Random Glucose 114 D Lactic Acid Lactic Acid Fup @ 2Hr Lactic Acid Fup @ 4Hr Calcium 9.4 Magnesium Total Bilirubin 1.1 H Direct Bilirubin 0.6 H AST 289 H ALT 103 H Alkaline Phosphatase 109 D Ammonia Total Protein 7.8 Albumin 4.6 Triglycerides Lipase 113 H Urine Color Urine Appearance Urine pH Ur Specific [place] Urine Protein Urine Glucose (UA) Urine Ketones Urine Blood Urine Nitrite Ur Leukocyte Esterase Ethyl Alcohol 335 H* Coronavirus (PCR) Influenza Type A (PCR) Influenza Type B (PCR) RSV RNA Qual (PCR) 08/13/20 08/13/20 08/13/20 18:06 18:06 18:07 WBC 4.3 L RBC 4.47 L Hgb 15.6 Hct 43.9 MCV 98.2 H MCH 34.9 H MCHC 35.5 RDW 14.1 Plt Count 142 L MPV 9.9 Immature Gran % (Auto) 0.2 Neut % (Auto) 29.6 L Lymph % (Auto) 54.3 H Wilson % (Auto) 10.5 Eos % (Auto) 3.3 Baso % (Auto) 2.1 H Lymph # (Auto) 2.3 Wilson # (Auto) 0.5 Eos # (Auto) 0.1 Baso # (Auto) 0.1 Abs Immat Gran (auto) 0.01 Absolute Neuts (auto) 1.3 L Absolute Nucleated RBC 0.000 Nucleated RBC % (auto) 0.0 Smear Tech's Comments PT INR Hold Blue Top Sodium Potassium Chloride Carbon Dioxide Anion Gap BUN Creatinine Estim Creat Clear Calc Estimated GFR Random Glucose Lactic Acid 3.4 H* Lactic Acid Fup @ 2Hr Lactic Acid Fup @ 4Hr Calcium Magnesium Total Bilirubin Direct Bilirubin AST ALT Alkaline Phosphatase Ammonia 33 Total Protein Albumin Triglycerides Lipase Urine Color Urine Appearance Urine pH Ur Specific [place] Urine Protein Urine Glucose (UA) Urine Ketones Urine Blood Urine Nitrite Ur Leukocyte Esterase Ethyl Alcohol Coronavirus (PCR) Influenza Type A (PCR) Influenza Type B (PCR) RSV RNA Qual (PCR) 08/13/20 08/13/20 08/13/20 20:24 20:25 20:47 WBC RBC Hgb Hct MCV MCH MCHC RDW Plt Count MPV Immature Gran % (Auto) Neut % (Auto) Lymph % (Auto) Wilson % (Auto) Eos % (Auto) Baso % (Auto) Lymph # (Auto) Wilson # (Auto) Eos # (Auto) Baso # (Auto) Abs Immat Gran (auto) Absolute Neuts (auto) Absolute Nucleated RBC Nucleated RBC % (auto) Smear Tech's Comments PT INR Hold Blue Top Sodium Potassium Chloride Carbon Dioxide Anion Gap BUN Creatinine Estim Creat Clear Calc Estimated GFR Random Glucose Lactic Acid Lactic Acid Fup @ 2Hr 3.5 H* Lactic Acid Fup @ 4Hr Calcium Magnesium Total Bilirubin Direct Bilirubin AST ALT Alkaline Phosphatase Ammonia Total Protein Albumin Triglycerides Lipase Urine Color YELLOW Urine Appearance CLEAR Urine pH 6.0 Ur Specific [place] <= 1.005 Urine Protein NEG Urine Glucose (UA) NEG Urine Ketones 5 Urine Blood NEG Urine Nitrite NEG Ur Leukocyte Esterase NEG Ethyl Alcohol Coronavirus (PCR) NEGATIVE Influenza Type A (PCR) NEGATIVE Influenza Type B (PCR) NEGATIVE RSV RNA Qual (PCR) NEGATIVE 08/13/20 08/14/20 08/14/20 22:42 07:24 07:24 WBC RBC Hgb Hct MCV MCH MCHC RDW Plt Count MPV Immature Gran % (Auto) Neut % (Auto) Lymph % (Auto) Wilson % (Auto) Eos % (Auto) Baso % (Auto) Lymph # (Auto) Wilson # (Auto) Eos # (Auto) Baso # (Auto) Abs Immat Gran (auto) Absolute Neuts (auto) Absolute Nucleated RBC Nucleated RBC % (auto) Smear Tech's Comments PT INR Hold Blue Top Sodium Potassium Chloride Carbon Dioxide Anion Gap BUN Creatinine Estim Creat Clear Calc Estimated GFR Random Glucose Lactic Acid Lactic Acid Fup @ 2Hr Lactic Acid Fup @ 4Hr 3.4 H* Calcium Magnesium Total Bilirubin 1.5 H Direct Bilirubin 0.7 H AST 228 H ALT 87 H Alkaline Phosphatase 87 D Ammonia Total Protein 6.3 L Albumin 3.9 Triglycerides 64 Lipase Urine Color Urine Appearance Urine pH Ur Specific [place] Urine Protein Urine Glucose (UA) Urine Ketones Urine Blood Urine Nitrite Ur Leukocyte Esterase Ethyl Alcohol Coronavirus (PCR) Influenza Type A (PCR) Influenza Type B (PCR) RSV RNA Qual (PCR) 08/14/20 08/14/20 08/14/20 07:24 07:24 07:24 WBC 3.4 L RBC 3.96 L Hgb 13.8 L Hct 38.9 L MCV 98.2 H MCH 34.8 H MCHC 35.5 RDW 13.9 Plt Count 118 L MPV 9.9 Immature Gran % (Auto) 0.3 Neut % (Auto) 33.5 L Lymph % (Auto) 49.7 H Wilson % (Auto) 10.6 Eos % (Auto) 4.1 H Baso % (Auto) 1.8 Lymph # (Auto) 1.7 Wilson # (Auto) 0.4 Eos # (Auto) 0.1 Baso # (Auto) 0.1 Abs Immat Gran (auto) 0.01 Absolute Neuts (auto) 1.1 L Absolute Nucleated RBC 0.000 Nucleated RBC % (auto) 0.0 Smear Tech's Comments PT INR Hold Blue Top Sodium 139 Potassium 3.2 L Chloride 100 Carbon Dioxide 23 Anion Gap 19 BUN 4 L Creatinine 0.60 Estim Creat Clear Calc 150.3 Estimated GFR > 60 Random Glucose 92 Lactic Acid 2.5 H* Lactic Acid Fup @ 2Hr Lactic Acid Fup @ 4Hr Calcium 8.3 L D Magnesium 1.3 L* Total Bilirubin Direct Bilirubin AST ALT Alkaline Phosphatase Ammonia Total Protein Albumin Triglycerides Lipase Urine Color Urine Appearance Urine pH Ur Specific [place] Urine Protein Urine Glucose (UA) Urine Ketones Urine Blood Urine Nitrite Ur Leukocyte Esterase Ethyl Alcohol Coronavirus (PCR) Influenza Type A (PCR) Influenza Type B (PCR) RSV RNA Qual (PCR) 08/15/20 08/15/20 08/15/20 05:19 05:19 05:19 WBC 4.5 L RBC 4.02 L Hgb 13.7 L Hct 39.8 L MCV 99.0 H MCH 34.1 H MCHC 34.4 RDW 13.4 Plt Count 109 L MPV 11.2 Immature Gran % (Auto) 0.4 Neut % (Auto) 56.1 Lymph % (Auto) 31.0 Wilson % (Auto) 8.7 Eos % (Auto) 2.2 Baso % (Auto) 1.6 Lymph # (Auto) 1.4 Wilson # (Auto) 0.4 Eos # (Auto) 0.1 Baso # (Auto) 0.1 Abs Immat Gran (auto) 0.02 Absolute Neuts (auto) 2.5 Absolute Nucleated RBC 0.000 Nucleated RBC % (auto) 0.0 Smear Tech's Comments VERIFIED PT 12.2 INR 1.0 Hold Blue Top Sodium 134 L Potassium 3.5 Chloride 99 Carbon Dioxide 23 Anion Gap 16 BUN 4 L Creatinine 0.63 Estim Creat Clear Calc 143.2 Estimated GFR > 60 Random Glucose 109 Lactic Acid Lactic Acid Fup @ 2Hr Lactic Acid Fup @ 4Hr Calcium 9.0 D Magnesium 1.5 L Total Bilirubin 2.9 H Direct Bilirubin 1.3 H AST 372 H ALT 127 H Alkaline Phosphatase 95 Ammonia Total Protein 6.2 L Albumin 3.8 Triglycerides Lipase Urine Color Urine Appearance Urine pH Ur Specific [place] Urine Protein Urine Glucose (UA) Urine Ketones Urine Blood Urine Nitrite Ur Leukocyte Esterase Ethyl Alcohol Coronavirus (PCR) Influenza Type A (PCR) Influenza Type B (PCR) RSV RNA Qual (PCR) 08/15/20 05:19 WBC RBC Hgb Hct MCV MCH MCHC RDW Plt Count MPV Immature Gran % (Auto) Neut % (Auto) Lymph % (Auto) Wilson % (Auto) Eos % (Auto) Baso % (Auto) Lymph # (Auto) Wilson # (Auto) Eos # (Auto) Baso # (Auto) Abs Immat Gran (auto) Absolute Neuts (auto) Absolute Nucleated RBC Nucleated RBC % (auto) Smear Tech's Comments PT INR Hold Blue Top Sodium Potassium Chloride Carbon Dioxide Anion Gap BUN Creatinine Estim Creat Clear Calc Estimated GFR Random Glucose Lactic Acid Lactic Acid Fup @ 2Hr Lactic Acid Fup @ 4Hr Calcium Magnesium Total Bilirubin 2.9 H Direct Bilirubin 1.3 H AST 358 H ALT 125 H Alkaline Phosphatase 90 Ammonia Total Protein 6.2 L Albumin 3.8 Triglycerides Lipase Urine Color Urine Appearance Urine pH Ur Specific [place] Urine Protein Urine Glucose (UA) Urine Ketones Urine Blood Urine Nitrite Ur Leukocyte Esterase Ethyl Alcohol Coronavirus (PCR) Influenza Type A (PCR) Influenza Type B (PCR) RSV RNA Qual (PCR) Airway Mallampati Class: II TM Dist: >3cm Neck ROM: Full Loose/Missing/Broken Teeth: No Heart: RRR Lungs: CTA Assessment and Plan Assessment Anesthesia Assessment: Anesthesia Plan Discussed and Chart Reviewed Final Anesthetic Review NPO: Yes ASA Class: III Final Preanesthetic Review: Meds/Allgs Chart Reviewed, Consent Obtained/Reviewed and Anes Risks/Benef Reviewed Patient Risk: Intermediate Procedure Risk: Intermediate Anesthetic Plan Anesthetic Plan: MAC: Disposition: Standard PACU
[2020-08-15] MEDS: Lactated Ringers 1,000 ML 50 ML IV (12:23)
--- NOTE | 2020-08-15 12:38 | PM.OP ---
Brief Operative Note Date of Service: 08/15/20 Pre-op diagnosis: Vomiting, Hematemesis Post-op diagnosis: other (Hiatal hernia, Gastritis, Duodenitis) Procedure: EGD Surgeon: Jesus Meneses Anesthesia: MAC Was an Manager Customer Service used for this Procedure?: No Estimated blood loss (mL): 0 Pathology: none sent Condition: stable Disposition: PACU
--- NOTE | 2020-08-15 12:39 | PM.EVENT ---
Event Note Date of Service: 08/15/20 Event Note: EGD-Full note dictated Findings: 1. Hiatal hernia 2. Mild antral gastritis 3. Mild duodenitis in the duodenal bulb No varices nor portal gastropathy. No blood in the UGI tract. Rec: Advance diet, po PPI, F/U labs in AM, avoid alcohol. I left his a voicemail with this info. Thanks
--- NOTE | 2020-08-15 13:35 | MHC.CM.PN ---
Patient is being scoped today r/t GIB. Home no services is the goal and CM will follow for possible need to adjust the dc plan.
[2020-08-15] MEDS: PHENobarbitaL 15 MG TABLET 45 MG PO ×2 (13:56→19:51)
[2020-08-15] MEDS: Omeprazole 20 MG CAPSULE.DR PO (13:57)
[2020-08-15] MEDS: Folic Acid 1 MG TABLET PO (13:57)
[2020-08-15] MEDS: Thiamine HCL 100 MG TABLET PO (13:57)
--- NOTE | 2020-08-15 15:46 | OP_ITS ---
SURGEON: Jesus Meneses MD INDICATIONS: The patient presents for evaluation of vomiting and hematemesis. Full consent has been obtained from him for this, including risks of bleeding and perforation. PREOPERATIVE DIAGNOSIS: POSTOPERATIVE DIAGNOSIS: PROCEDURE PERFORMED: Esophagogastroduodenoscopy. ESTIMATED BLOOD LOSS: COMPLICATIONS: ANESTHESIA: Monitored anesthesia care. ASSISTANTS: SPECIMENS: PREOPERATIVE DIAGNOSES: Vomiting and hematemesis. POSTOPERATIVE DIAGNOSES: Vomiting and hematemesis, hiatal hernia, gastritis, duodenitis. DESCRIPTION OF PROCEDURE: The patient was placed in the left lateral decubitus position. The Olympus video gastroscope was passed in the posterior oropharynx and upper esophagus under direct vision. The scope was passed slowly into the distal esophagus. The gastroesophageal junction appeared at 38 cm. There was some slight irregularity consistent with reflux, but no evidence of any varices nor definitive evidence of Bennett's esophagus. There was no esophagitis. There was a small hiatal hernia. The scope was advanced to the pylorus and the duodenum was cannulated to the descending portion. The duodenum including the bulb appeared normal other than some mild changes of duodenitis with erythema and edema in the duodenal bulb, but no ulceration or mass. There was no blood nor coffee-grounds material. The scope was withdrawn back in the stomach. The gastric antrum also had some areas of edema and erythema, but no erosions or ulceration. There was good peristalsis. The scope was retroflexed visualizing the proximal stomach carefully, which appeared consistent with the gastritis as well, but no erosions, ulceration, nor varices. There was no portal gastropathy. The scope was straightened out and withdrawn back into the esophagus. The esophageal mucosa appeared normal. The scope was withdrawn from the patient. He tolerated the procedure well and was returned to recovery area in stable condition. IMPRESSION: 1. Hiatal hernia. 2. Gastritis. 3. Duodenitis. PLAN: The patient will be switched to oral omeprazole. His diet will be advanced. I think these findings are from his alcohol abuse. He will have followup laboratories in the morning. He will need to avoid alcohol completely. Jesus Meneses MD RMW/MODL / [id number] MTDD
[2020-08-15] MEDS: Nicotine 21 MG PATCH.TD24 TRANSDERMA (19:50)
[2020-08-16] VITALS (9 sets, daily range): BP systolic 127–160; BP diastolic 82–97; PULSE 58–88; RESP 18–20; TEMP 36.3–37; O2SAT 97–99
[2020-08-16] MEDS: Omeprazole 20 MG CAPSULE.DR PO (05:36)
[2020-08-16 06:30] LABS: Hemoglobin 13.1 g/dl (14.0-18.0); Mean Corpuscular Volume 99.5 fL (80-98); PLT CLUMP 1; Red Cell Distribution Width 13.2 % (11.0-16.0)
[2020-08-16 06:32] LABS: Hematocrit 37.6 % (42-52); Mean Corpuscular HGB Conc 34.8 g/dl (31.0-36.0); Mean Corpuscular Hemoglobin 34.7 pg (27.0-33.0); Mean Platelet Volume 11.4 fL (9.4-12.4); Red Blood Count 3.78 X10*6/uL (4.60-5.80); White Blood Count 4.1 X10*3/uL (4.8-10.8)
[2020-08-16 06:36] LABS: INTERNATIONAL NORM RATIO 1.1 (0.9-1.1); Prothrombin Time 12.5 SEC (10.8-13.0)
[2020-08-16 06:50] LABS: Platelet Count 91 X10*3/uL (160-400)
[2020-08-16 06:56] LABS: Anion Gap 12 (12-20); Blood Urea Nitrogen 5 mg/dL (9-16); Carbon Dioxide 26 mmol/L (22-29); Chloride 99 mmol/L (96-108); Creatinine Clr Calc Pharmacy 134.6; Estimated Glomerular Filt Rate > 60; Glucose Random 104 mg/dL (60-115); Potassium 3.2 mmol/L (3.3-5.1); Sodium 134 mmol/L (135-145)
--- NOTE | 2020-08-16 07:04 | HO.POSTANES ---
Post Anesthesia Evaluation Post Anesthesia Evaluation Vital Signs: Vital Signs Temp Pulse Resp BP Pulse Ox 08/16/20 03:17 98.6 F 58 18 137/92 H 99 08/15/20 23:52 97.4 F 88 18 154/100 H 100 Anesthesia: Monitored Mental Status: Awake Pain Control: Satisfactory Nausea/Vomiting: None Hydration: Adequate Anesthesia-Related Issues: No Anes. Related Issues
[2020-08-16 07:11] LABS: Alanine Aminotransferase 159 U/L (0-40); Albumin Level 3.9 g/dL (3.5-5.0); Alkaline Phosphatase 113 U/L (39-117); Aspartate Amino Transferase 342 U/L (5-37); Bilirubin Direct 1.3 mg/dL (0.0-0.5); Bilirubin Total 2.6 mg/dL (0.0-1.0); Total Protein 6.4 g/dL (6.5-8.0)
[2020-08-16] MEDS: 0.9 % Sodium Chloride Flush 3 ML SYRINGE IVFLUSH ×3 (07:37→19:55)
[2020-08-16] MEDS: Folic Acid 1 MG TABLET PO (07:37)
[2020-08-16] MEDS: PHENobarbitaL 15 MG TABLET 45 MG PO (07:37)
[2020-08-16] MEDS: Thiamine HCL 100 MG TABLET PO (07:38)
[2020-08-16] MEDS: Potassium Chloride ER 20 MEQ TAB.ER.PRT 40 MEQ PO (08:42)
[2020-08-16] MEDS: PHENobarbitaL sodium 65 MG/ML VIAL IM (12:04)
--- NOTE | 2020-08-16 13:15 | HO.PM.IMPN ---
Subjective Subjective Date of Service: 08/16/20 Interval History: Feeling better, but a little jittery Cardiovascular Cardiovascular: Reports no additional cardiovascular complaints Respiratory Respiratory: Reports no additional respiratory complaints Physical Exam Vital Signs: Vital Signs: Last Vital Signs Temp 98.6 F 08/16/20 11:18 Pulse 77 08/16/20 11:18 Resp 20 08/16/20 11:18 BP 148/94 H 08/16/20 11:18 Pulse Ox 97 08/16/20 11:18 Body Mass Index 25.1 General: AO X 3, appears jittery Resp: CTA bilateral CVS: S1,S2,RRR GI: soft, non tender, non distended Neuro: motor grossly intact Psych: Seems a bit confused, poor perception of time (thought he had been her over 5 days, when it has been closer to 3) Objective Data Current Medications Generic Name Dose Route Start Last Admin Trade Name Freq PRN Reason Stop Dose Admin Folic Acid 1 mg 08/14/20 09:00 08/16/20 07:37 Folic Acid 1 Mg Tablet PO 08/17/20 08:59 1 mg DAILY HUSSEIN Administration Hydromorphone HCl 0.5 mg 08/13/20 21:48 Hydromorphone Hcl 0.5 Mg/0.5 Ml Syringe IVPUSH Q6H PRN Pain, Severe (Pain Scale 7-10) Lorazepam 1 mg 08/13/20 21:48 Lorazepam 1 Mg Tablet PO 08/17/20 21:47 Q4H PRN Breakthrough alcohol withdrawa Medication 1 each 08/15/20 09:00 No Benzodiazepines MISCELLANE DAILY HUSSEIN Multivitamins 1 tab 08/14/20 09:00 08/16/20 07:37 B-Complex With Vitamin C Tablet PO 1 tab DAILY HUSSEIN Administration Nicotine 21 mg 08/15/20 18:45 08/16/20 07:45 Nicotine 21 Mg Patch.[id number] TRANSDERMA Not Given DAILY HUSSEIN Nicotine Polacrilex 2 mg 08/16/20 07:23 08/16/20 08:42 Nicotine Polacrilex 2 Mg Lozenge BUCCAL 2 mg Q2H PRN Administration withdrawl Omeprazole 20 mg 08/15/20 13:24 08/16/20 05:36 Omeprazole 20 Mg Capsule. PO 20 mg DAILY@0630 HUSSEIN Administration Ondansetron HCl 4 mg 08/13/20 21:48 08/14/20 13:31 Ondansetron Hcl 4 Mg/2 Ml Vial IVPUSH 4 mg Q8H PRN Administration Nausea and Vomiting Pharmacy Consult 1 each 08/13/20 21:25 Consult Rx Perform Med Rec MISCELLANE ONCE PRN Consult order Pharmacy Consult 1 each 08/14/20 09:54 Consult Rx Etoh Phenob Dosing MISCELLANE ONCE PRN Consult order Protocol Phenobarbital 30 mg 08/16/20 21:00 Phenobarbital 30 Mg Tablet PO 08/18/20 09:01 BID HUSSEIN Protocol Phenobarbital 30 mg 08/19/20 09:00 Phenobarbital 30 Mg Tablet PO 08/20/20 09:01 DAILY [facility] Protocol Senna 17.2 mg 08/13/20 21:48 Sennosides 8.6 Mg Tablet PO BEDTIME PRN Constipation Sodium Chloride 3 ml 08/14/20 00:00 08/16/20 07:37 0.9 % Sodium Chloride Flush 3 Ml Syringe IVFLUSH 3 ml QSHIFT [facility] Administration Thiamine HCl 100 mg 08/14/20 09:00 08/16/20 07:38 Thiamine Hcl 100 Mg Tablet PO 08/17/20 08:59 100 mg DAILY HUSSEIN Administration Labs CBC & Chem 7: 08/16/20 05:35 08/16/20 05:35 Microbiology Microbiology Results: Microbiology 08/13/20 18:05 Blood - Venous Blood Culture - Preliminary No growth after 48 hours. 08/13/20 18:05 Blood - Venous Blood Culture - Preliminary No growth after 48 hours. Assessment and Plan (1) Gastritis: Status: Acute Assessment and Plan: 50-year-old male with a past medical history of alcohol abuse, alcoholic gastritis, Lyme disease presented to the hospital with a chief complaint of nausea vomiting and abdominal discomfort. Exam was benign. Nontender abdomen. Acute blood loss anemia due to hematemesis from alcoholic gastritis Hemoglobin stable around 13 EGD done 08/15 No varices seen, chest gastritis, duodenitis Transitioned to oral PPI, regular diet avoid alcohol alcohol dependence with withdrawl, mild hepatitis still appears to be having significant withdrawl will give extra dose of im phenobarb continue to monitor hypokalemia replace and monitor
[2020-08-16] MEDS: PHENobarbitaL 30 MG TABLET PO (19:55)
[2020-08-17 03:58] VITALS: BP 143/92; PULSE 75; RESP 18; TEMP 36.1; O2SAT 98
[2020-08-17] MEDS: Omeprazole 20 MG CAPSULE.DR PO (05:26)
[2020-08-17 07:08] VITALS: BP 138/88; PULSE 78; RESP 20; TEMP 36.7; O2SAT 98
[2020-08-17 07:10] LABS: Alanine Aminotransferase 158 U/L (0-40); Albumin Level 4.1 g/dL (3.5-5.0); Alkaline Phosphatase 105 U/L (39-117); Anion Gap 14 (12-20); Aspartate Amino Transferase 222 U/L (5-37); Bilirubin Direct 1.2 mg/dL (0.0-0.5); Bilirubin Total 2.4 mg/dL (0.0-1.0); Blood Urea Nitrogen 5 mg/dL (9-16); Calcium 9.7 mg/dL (8.4-10.2); Carbon Dioxide 25 mmol/L (22-29); Chloride 100 mmol/L (96-108); Creatinine Clr Calc Pharmacy 132.7; Estimated Glomerular Filt Rate > 60; Glucose Fasting 110 mg/dL (60-99); Magnesium 1.5 mg/dL (1.6-2.6); Potassium 3.6 mmol/L (3.3-5.1); Sodium 135 mmol/L (135-145); Total Protein 6.7 g/dL (6.5-8.0)
[2020-08-17 07:17] LABS: Hematocrit 39.9 % (42-52); Hemoglobin 14.1 g/dl (14.0-18.0); Mean Corpuscular HGB Conc 35.3 g/dl (31.0-36.0); Mean Platelet Volume 12.3 fL (9.4-12.4); Platelet Count 105 X10*3/uL (160-400); Red Blood Count 4.03 X10*6/uL (4.60-5.80); Red Cell Distribution Width 13.3 % (11.0-16.0); White Blood Count 4.9 X10*3/uL (4.8-10.8)
[2020-08-17] MEDS: Nicotine 21 MG PATCH.TD24 TRANSDERMA (07:58)
[2020-08-17] MEDS: PHENobarbitaL 30 MG TABLET PO (07:58)
[2020-08-17] MEDS: 0.9 % Sodium Chloride Flush 3 ML SYRINGE IVFLUSH (07:59)
--- NOTE | 2020-08-17 09:38 | P.DS_ITS ---
DS: Providers Provider Date of Service: 08/17/20 Date of admission: 08/13/20 21:48 Primary care physician: TRACEE Moreno Consults: 08/13/20 21:48 Consult to Gastroenterology Routine Consulting Provider: Christopher Oropeza Reason for consultation: gastritis; ?blood in vomitus; transaminitis DS: Diagnosis Discharge Diagnosis (1) Gastritis: Status: Acute (2) Acute blood loss anemia: Status: Acute (3) Alcoholic gastritis: Status: Acute (4) Alcohol dependence with withdrawal: Status: Acute (5) Alcoholic hepatitis: Status: Acute DS: Medications Discharge Medications Home Medications: Previous Rx's Medication Instructions Recorded omeprazole 20 mg PO DAILY@0630 #30 cap 08/17/20 DS: Summary Hospital Course Hospital Course: Patient was admitted for hematemesis and acute blood loss anemia. He did not require any blood transfusions. Hemoglobin was 15.6 on admission, tan was 13.1, it is 14.1 at discharge. Was given PPI and hematemesis resolved. He underwent EGD which showed no active bleed and no varices, did show gastritis and duodenitis. He was transitioned to oral PPI and recommended to avoid alcohol. Course was complicated by alcohol dependence with withdrawal and mild hepatitis. He was given phenobarbital and withdrawal symptoms improved. Bilirubin on admission was 2.9, at discharge 2.4. peak AST was 358, [facility] is [facility]. INR was 1. patient is feeling better, tolerating solids, and will be discharge home Time Spent with Patient Time attestation: Total time spent providing and/or coordinating discharge services: Discharge coordination time: Greater than 30 minutes Quality: Stroke Does the patient have a stroke diagnosis?: No Physical Exam Vital Signs: Vital Signs: Last Vital Signs Temp 98.0 F 08/17/20 07:08 Pulse 78 08/17/20 07:08 Resp 20 08/17/20 07:08 BP 138/88 08/17/20 07:08 Pulse Ox 98 08/17/20 07:08 Body Mass Index 25.1 General: AO X 3, no acute distress Resp: CTA bilateral CVS: S1,S2,RRR GI: soft, non tender, non distended Neuro: motor grossly intact Psych: appropriate affect DS: Data Data Completed and Pending Labs on day of discharge: Laboratory Results - last 24 hr 08/17/20 08/17/20 08/17/20 06:05 06:05 06:05 WBC 4.9 RBC 4.03 L Hgb 14.1 Hct 39.9 L MCV 99.0 H MCH 35.0 H MCHC 35.3 RDW 13.3 Plt Count 105 L MPV 12.3 Absolute Nucleated RBC 0.000 Nucleated RBC % (auto) 0.0 PT 12.0 INR 1.0 Sodium 135 Potassium 3.6 Chloride 100 Carbon Dioxide 25 Anion Gap 14 BUN 5 L Creatinine 0.68 Estim Creat Clear Calc 132.7 Estimated GFR > 60 Fasting Glucose 110 H Calcium 9.7 D Magnesium 1.5 L Total Bilirubin 2.4 H Direct Bilirubin 1.2 H AST 222 H ALT 158 H Alkaline Phosphatase 105 Total Protein 6.7 Albumin 4.1 Preliminary micro results at discharge 08/13/20 18:05 Blood Culture - Preliminary Blood - Venous No growth after 48 hours. 08/13/20 18:05 Blood Culture - Preliminary Blood - Venous No growth after 48 hours. Discharge Plan Discharge Patient Disposition: Home, Self-Care Discharge Diagnosis: gi bleed Referrals: Gulshan Chanel FNP- [Primary Care Provider] - 1 Week Christopher Oropeza MD [Physician] - 1 Week Discharge Medications: New omeprazole 20 mg Capsule,Delayed Release(Dr/Ec) 20 mg PO DAILY@0630 Qty: 30 RF: 0 Discharge Orders: Discharge Order (Routine); Ordered 08/17/20 Ordered By: Luisito [place] Diet: advance to usual diet Activity on Discharge: avoid ETOH Stand Alone Forms: Patient Portal Discharge page Care Plan Goals: recovery Health Concerns: etoh, gastritis Plan of Treatment: prilsoec, gi follow up, etoh cessation, smoking cessation Assessment: see above
--- NOTE | 2020-08-17 10:34 | MHC.CM.PN ---
PT WILL BE DISCHARGED HOME TODAY WITH NO SERVICES. PT TO ARRANGE TRANSPORT
== END 2020-08-17 12:35 | disposition home or self-care (01) | DRG 241 ==
LOC: HO.ED 18:55 → HO.EDOVER 22:21 → HO.IMC 23:22
PROVIDERS: Internal Medicine; Nurse Practitioner Family; Admitting Provider Hospitalist; Emergency Provider Internal Medicine; PCP Nurse Practitioner Family; Visit Provider Internal Medicine
PROC: 0DJ08ZZ Inspection of Upper Intestinal Tract, Via Natural or Artificial Opening Endoscopic (ICD-10-PCS; CPT 43235; principal; 2020-08-15 11:40)
DX: K29.21 Alcoholic gastritis with bleeding (principal); E87.2 Acidosis; D62 Acute posthemorrhagic anemia; K29.81 Duodenitis with bleeding; E83.42 Hypomagnesemia; K44.9 Diaphragmatic hernia without obstruction or gangrene; E87.6 Hypokalemia; F10.239 Alcohol dependence with withdrawal, unspecified; F17.210 Nicotine dependence, cigarettes, uncomplicated; Z71.6 Tobacco abuse counseling; Z20.822 Contact with and (suspected) exposure to COVID-19; Z79.899 Other long term (current) drug therapy
CPT/HCPCS: 0241U; 36415; 74177; 80048; 80053; 80076; 80320; 81003; 82140; 83605; 83690; 83735; 84478; 85025; 85027; 85610; 87040; 96361; 96365; 96375; 99285; J2405; J2560; J3010; J3475; Q9967

== ENCOUNTER 2020-08-28 12:46 | Emergency (ER) | payer MEDICAID, SELFPAY ==
[2020-08-28 13:07] VITALS: BP 108/70; PULSE 98; O2SAT 94
[2020-08-28 13:10] VITALS: BP 109/76; PULSE 91; RESP 18; TEMP 36.5; O2SAT 95; BMI 25.8
--- NOTE | 2020-08-28 14:07 | PC.NURSE ---
Pt calm and cooperative. Spoke with Bella about pt's plan with verbal permission by the patient.
[2020-08-28 14:34] VITALS: BP 111/78; PULSE 85; RESP 18; TEMP 36.7; O2SAT 96
--- NOTE | 2020-08-28 14:39 | ED_ITS ---
HPI - General Adult General Chief complaint: ETOH/Substance Use Stated complaint: ETOH INTOXICATION Source: patient Mode of arrival: ambulatory Limitations: no limitations History of Present Illness HPI narrative: PATIENT PRESENTS TO ED FOR ALCOHOL ON BREATH. PATIENT WAS AT A HOTEL SLEEPING IN THE ROOM AFTER DRINKING AND POLICE WAS CALLED. POLICE GIVEN OPTION OF GOING TO THE ER GOING TO PRESENT SO PATIENT CAME TO THE ER. PATIENT STATES HE WOULD LIKE TO BE DISCHARGED. PATIENT DOES NOT WANT DETOX. Related Data Previous Rx's Medication Instructions Recorded omeprazole 20 mg PO DAILY@0630 #30 cap 08/17/20 Allergies Allergy/AdvReac Type Severity Reaction Status Date / Time No Known Allergies Allergy Verified 08/15/20 11:01 Review of Systems Review of Systems: Yes all other systems are reviewed and are negative Constitutional: Constitutional: Reports as per HPI and Reports no additional constitutional complaints Eyes: Eyes: Reports as per HPI and Reports no additional eye complaints ENT: Reports system reviewed and no additional complaints, except as documented and Reports as per HPI Cardiovascular: Cardiovascular: Reports as per HPI and Reports no additional cardiovascular complaints Respiratory: Respiratory: Reports as per HPI and Reports no additional respiratory complaints Gastrointestinal: Gastrointestinal: Reports as per HPI and Reports no additional gastrointestinal complaints Genitourinary: Genitourinary: Reports no additional male genitourinary complaints and Reports as per HPI Musculoskeletal: Musculoskeletal: Reports no additional musculoskeletal complaints and Reports as per HPI Neurologic: Reports system reviewed and no additional complaints, except as documented and Reports as per HPI Psychiatric: Psychiatric: Reports no additional psychiatric complaints and Reports as per HPI PMFSH Past Medical History Medical History Autoimmune disease Lyme disease Pancreatitis Surgical History No pertinent past surgical history Family History Family History Father Heart attack Mother No problems noted. Sister No problems noted. Daughter No problems noted. Social History Social History Household Members: Spouse and Friend(s) Housing: House Do you presently have visiting nurse or other home services: No Alcohol intake: current Alcohol intake frequency: 3 or more drinks per day Alcohol type: hard liquor Patient Tobacco Use Status: Current everyday Tobacco user Tobacco use type: Cigarette Cigarette Packs Per Day: 1 Cigarettes Per Day: 20.0 Years Smoked: 39 Substance Use Type: Marijuana Advance Directives: No Advance Directives Information Provided: No Current occupational status: unemployed Physical Exam Vital Signs: Vital Signs: Last Vital Signs Temp 98.0 F 08/28/20 14:34 Pulse 85 08/28/20 14:34 Resp 18 08/28/20 14:34 BP 111/78 08/28/20 14:34 Pulse Ox 96 08/28/20 14:34 Body Mass Index 25.8 Const: Other: ALCOHOL on breath General: cooperative, healthy appearing, comfortable, no acute distress, well developed, alert and awake; No Physically active Orientation/consciousness: patient oriented x3 Eyes: General: appearance normal, both eyes and all related structures Neck: Neck: Yes normal visual inspection, Yes full ROM, Yes no lymphadenopathy, Yes no meningeal signs, Yes trachea midline, Yes supple and No tender Chest: Chest palpation & inspection: normal inspection of the chest and normal palpation of entire chest wall Resp: Effort & Inspection: normal respiratory effort and able to speak in complete sentences Auscultation: clear to auscultation bilaterally Cardio: Jugular venous distension: no JVD Heart sounds: S1 normal heart sound present and S2 normal heart sound present GI: Inspection: Yes normal to inspection and No abdominal wall ecchymosis Palpation (GI): Soft to palpation, not firm, nontender, no guarding and not rigid : General: No CVA tenderness and Yes no CVA tenderness Back/Spine/Pelvis: Back: no CVA tenderness, No CVA tenderness and No back tenderness Skin: General skin exam: no rashes or lesions noted and elasticity normal Neuro: General: patient oriented x3, gait normal, no meningeal signs and CN's II-XI intact bilaterally Cranial nerves: Yes CN's II-XII intact bilaterally Extrem: General: Yes normal to inspection and Yes full ROM Psych: Appearance: grossly normal, well kempt and not disheveled Course Course Course Narrative: PATIENT GIVEN FOOD AND WILL let SOBER. WILL RE-EVALUATE Reevaluation(s) Reevaluation #1: Patient alert oriented x3. Patient ready for discharge. Patient vital signs stable Time: 16:20 Reevaluation #2: Patient eloped from the ER before receiving discharge papers. Time: 17:55 Medical Decision Making [facility] Narrative Medical decision making narrative: Alcohol abuse Discharge Plan Discharge Clinical Impression: Alcohol abuse Patient Disposition: Elopement Prescriptions: No Action omeprazole 20 mg Capsule,Delayed Release(Dr/Ec) 20 mg PO DAILY@0630 Qty: 30 RF: 0 Interventions: ED Discharge Assessment Last Done: 08/28/20 17:50 Discharge Date/Time: 08/28/20 17:52
--- NOTE | 2020-08-28 17:49 | PC.NURSE ---
Plan was for discharge however pt left without notifying staff and before his discharge paperwork. Pt was observed calling his brother for a ride home prior to his departure.
== END 2020-08-28 17:52 | disposition left against medical advice (07) ==
PROVIDERS: Emergency Provider Emergency Medicine; PCP Nurse Practitioner Family
DX: F10.10 Alcohol abuse, uncomplicated (principal); Y90.9 Presence of alcohol in blood, level not specified; F17.210 Nicotine dependence, cigarettes, uncomplicated
CPT/HCPCS: 99284

== ENCOUNTER 2020-12-25 11:05 | Outpatient (REF) | payer MEDICAID, SELFPAY ==
--- NOTE | ~2020-12-25 | XR_ITS ---
EXAMINATION: XR HAND, RIGHT CLINICAL INFORMATION: Pain in right hand. COMPARISON: None TECHNIQUE: PA, lateral, and oblique views of the right hand. FINDINGS: The bones and soft tissues are normal. No fracture. Alignment is anatomic. Joint spaces are maintained. No erosions or soft tissue calcifications. XR/XR hand RT min 3V IMPRESSION: Unremarkable right hand exam.
== END 2020-12-25 11:06 | disposition home or self-care (01) ==
LOC: HO.HMGCX 11:05
PROVIDERS: PCP Nurse Practitioner Family; Visit Provider Nurse Practitioner Family
DX: M79.641 Pain in right hand (principal)
CPT/HCPCS: 73130

== ENCOUNTER 2021-01-29 09:22 | Outpatient (REF) | payer MEDICAID, SELFPAY ==
[2021-01-29 11:15] LABS: Appearance Urine HAZY; Color Urine DK YELLOW; Glucose Urine UA NEG (NEG); Leukocyte Esterase Urine NEG (NEG); Nitrite Urine NEG (NEG); Specific Gravity - Urine >= 1.030 (1.005-1.025); UACC Culture Trigger NO; Urine Blood NEG (NEG); Urine Ketones >=80 MG/DL (NEG); Urine Protein 2+ MG/DL (NEG-TRACE)
[2021-01-29 11:16] LABS: MANUAL DIFF FLAG NO
[2021-01-29 11:19] LABS: Basophils Absolute Auto 0.1 X10*3/uL (0.0-0.2); Basophils Percent Auto 0.8 % (0-2); Eosinophils Percent Auto 0.3 % (0-4); Hematocrit 46.8 % (42.0-52.0); Hemoglobin 16.1 g/dl (14.0-18.0); Imm Gran Abs Auto 0.02 X10*3/uL (0.00-0.03); Imm Gran Pct Auto 0.3 % (0.0-0.4); Lymphocytes Percent Auto 33.2 % (20-40); Mean Corpuscular HGB Conc 34.4 g/dl (31.0-36.0); Mean Corpuscular Volume 98.9 fL (80.0-98.0); Mean Platelet Volume 11.1 fL (9.4-12.4); Monocytes Absolute Auto 0.7 X10*3/uL (0.1-1.2); Monocytes Percent Auto 11.1 % (2-11); Neutrophils Absolute Auto 3.3 x10*3/uL (2.0-8.3); Neutrophils Percent Auto 54.3 % (45-73); Platelet Count 139 X10*3/uL (160-400); Red Blood Count 4.73 X10*6/uL (4.60-5.80); Red Cell Distribution Width 12.6 % (11.0-16.0)
[2021-01-29 11:33] LABS: Mucus Urine 1+ /LPF; RBC Urine 0 /HPF (0); Squamous Epithelial Cell Urine TRACE /LPF; WBC Urine 0 /HPF (0-4)
[2021-01-29 12:00] LABS: Alanine Aminotransferase 123 U/L (0-40); Albumin Level 4.7 g/dL (3.5-5.0); Alkaline Phosphatase 94 U/L (39-117); Anion Gap 26 (12-20); Aspartate Amino Transferase 200 U/L (5-37); Bilirubin Total 1.8 mg/dL (0.0-1.0); Blood Urea Nitrogen 11 mg/dL (9-16); Calcium 9.6 mg/dL (8.4-10.2); Carbon Dioxide 19 mmol/L (22-29); Chloride 93 mmol/L (96-108); Cholesterol 212 mg/dL; Estimated Glomerular Filt Rate > 60; Glucose Fasting 91 mg/dL (60-99); HDL Cholesterol 78 mg/dL; LDL Cholesterol Calculated 109 mg/dl; Lipase 70 U/L (8-78); Potassium 3.8 mmol/L (3.3-5.1); Sodium 134 mmol/L (135-145); Total Protein 8.3 g/dL (6.5-8.0); Triglycerides 127 mg/dL
[2021-01-29 12:26] LABS: Vitamin B12 670 pg/mL (200-900)
== END 2021-01-29 09:23 | disposition home or self-care (01) ==
LOC: HO.HMGCLDS 09:22
PROVIDERS: PCP Nurse Practitioner Family; Visit Provider Nurse Practitioner Family
DX: K70.10 Alcoholic hepatitis without ascites (principal); K85.90 Acute pancreatitis without necrosis or infection, unspecified
CPT/HCPCS: 36415; 80053; 80061; 81001; 82607; 83690; 84443; 85025

== ENCOUNTER 2021-01-29 17:39 | Inpatient (IN) | payer MEDICAID, SELFPAY ==
--- NOTE | ~2021-01-29 | XR_ITS ---
EXAMINATION: XR CHEST CLINICAL INFORMATION: Fever, cough, shortness of breath. Evaluate for pneumonia. COMPARISON: Chest radiograph dated from 05/18/2020. TECHNIQUE: PA view of the chest was obtained. FINDINGS: No significant abnormality is noted involving the heart, lungs, mediastinum, bony thorax or soft tissues. XR/XR chest 1V IMPRESSION: Unremarkable examination.
--- NOTE | 2021-01-29 18:27 | PC.NURSE ---
pt was called to triage twice to no response. upon this nurse speaking with patients in the ed, it was found that this patient was sitting outside and his was sitting in the waiting room. is going to get the patient to have him come in to be triaged.
[2021-01-29 18:28] VITALS: BP 152/93; PULSE 102; RESP 20; TEMP 37; O2SAT 98; BMI 25.1
[2021-01-29 20:09] VITALS: BP 136/88; PULSE 88; RESP 98; TEMP 37.8; O2SAT 99
--- NOTE | 2021-01-29 20:24 | ED.NAVMDI ---
HPI - Nausea/Vomiting/Diarrhea General Chief complaint: Nausea/Vomiting/Diarrhea Stated complaint: vomiting Time Seen by Provider: 01/29/21 20:07 Source: patient and family (, [place]) Mode of arrival: ambulatory Limitations: no limitations History of Present Illness HPI Narrative: 50-year-old male who presents emergency department for evaluation fever, cough, chest pain, shortness of breath, vomiting x3 days. The patient states that he has had fever as high as 101.1? F at home for the last 3 days. He has been taking Tylenol and ibuprofen with some relief of his fever. The patient states that he has a chronic smoker's cough but the cough is gotten worse over the past 3 days. States the cough is productive of thick green phlegm with occasional blood in the phlegm. The patient has had nausea and vomiting for 3 days. He states that he has not been able to eat or drink anything that hits his stomach immediately vomits up. He complains of chest pain and he points to his anterior chest when asked to localize the pain. The pain is worse with breathing and is moderate in intensity. He feels short of breath at rest and has dyspnea on exertion with only minimal exertion. Is also complaining of a burning epigastric pain which is constant and moderate intensity. Patient states that he had 1 episode of loose green diarrheal stool today. The patient received 1 return Moderna COVID-19 vaccination on 07/17/2020. The patient does drink alcohol daily he drinks 3 shots of Jesus Mayers and 2 beers per day. He states that he has continued to drink but believes that he vomits up the alcohol immediately after it hits his stomach. The patient was seen earlier today by his PCP and did have blood work done as and outpatient at 9:28 a.m. CBC revealed a low platelet count of a 339452 which is chronic. Comprehensive metabolic panel revealed a low bicarb of 19. Bilirubin was elevated 1.8, AST and ALT were elevated at 201 123. He has had similar elevations in the past. Lipase was normal. TSH was normal. Urinalysis was negative. The patient did not have a COVID-19 test or a chest x-ray Patient only received 1 COVID-19 vaccination 07/17/2020 and did not get his 2nd vaccination. Related Data Previous Rx's Medication Instructions Recorded albuterol sulfate 90 mcg/actuation 2 puff INHALATION Q6H PRN 30 Days 11/20/20 aerosol inhaler (ProAir HFA) #8.5 g doxycycline hyclate 100 mg tablet 100 mg PO Q12H 10 Days #20 tab 01/29/21 ondansetron 4 mg disintegrating 4 mg PO Q6-8H PRN #14 tab 01/29/21 tablet Allergies Allergy/AdvReac Type Severity Reaction Status Date / Time No Known Allergies Allergy Verified 01/29/21 18:28 Review of Systems Review of Systems: Yes all other systems are reviewed and are negative [facility] Past Medical History Medical History (Updated 01/29/21 @ 23:05 by Maxim Grande MD) Asthma Autoimmune disease Lyme disease Pancreatitis Surgical History No pertinent past surgical history Family History Family History Father Heart attack Mother No problems noted. Sister No problems noted. Daughter No problems noted. Social History Social History Household Members: Spouse and Friend(s) Housing: House Do you presently have visiting nurse or other home services: No Alcohol intake: current Alcohol intake frequency: 3 or more drinks per day Alcohol type: hard liquor Patient Tobacco Use Status: Current everyday Tobacco user Tobacco use type: Cigarette Cigarette Packs Per Day: 1 Cigarettes Per Day: 20.0 Years Smoked: 39 Substance Use Type: Marijuana Advance Directives: No Advance Directives Information Provided: No Current occupational status: unemployed Physical Exam Vital Signs: Vital Signs: Last Vital Signs Temp 98.2 F 01/29/21 22:37 Pulse 82 01/29/21 22:37 Resp 15 01/29/21 22:37 BP 120/79 01/29/21 22:37 Pulse Ox 96 01/29/21 22:37 Body Mass Index 25.1 Const: Other: Awake, alert, male patient, appears tremulous, pleasant and cooperative and answers all questions appropriately. Orientation/consciousness: oriented to place HENMT: Head: Yes normal to inspection, Yes normocephalic and Yes atraumatic Ears: external ears normal General nose exam: Normal external nose present Face and sinus: Yes normal facial exam Mouth: other (Dry mucous membranes) Teeth and gingiva: other (Poor dentition) Throat: Yes posterior oropharynx normal Eyes: Alignment and Position: alignment normal Periorbital: periorbital findings normal Eyelids: Yes eyelids normal Conjunctivae: conjunctivae normal Sclerae: scleral abnormal (Icteric) Pupils: Equal, round and reactive pupils present EOM: EOMs intact bilaterally Direct Ophthalmoscopy: normal light reflex Neck: Neck: Yes normal visual inspection, Yes no lymphadenopathy, Yes trachea midline and Yes supple Chest: Chest palpation & inspection: normal inspection of the chest and normal palpation of entire chest wall Resp: Effort & Inspection: normal respiratory effort and able to speak in complete sentences Auscultation: clear to auscultation bilaterally Cardio: Rate: regular rate Rhythm: regular rhythm Heart sounds: S1 normal heart sound present, S2 normal heart sound present and no murmurs GI: Inspection: Yes normal to inspection Palpation (GI): Soft to palpation, Tenderness to palpation present (GI) (Diffuse tenderness) and no guarding Auscultation: normal bowel sounds : General: Yes no CVA tenderness Back/Spine/Pelvis: Back: no CVA tenderness Skin: General skin exam: no rashes or lesions noted Neuro: General: oriented to place Cranial nerves: Yes CN's II-XII intact bilaterally and Yes Equal, round and reactive pupils present Cognition (Neuro): normal cognition Motor exam (neuro): 5/5 motor strength present throughout Extrem: General: Yes normal to inspection Psych: Appearance: grossly normal Speech and movement: Normal speech and movement present Affect: normal affect Attitude: cooperative Thought process: Normal thought process present Thought content: Normal thought content present Course Course Course Narrative: 50-year-old male who presents emergency department for evaluation of 3 days of cough, chest pain, shortness of breath, dyspnea on exertion, nausea vomiting and abdominal pain. The patient drinks alcohol on a regular basis but has had decreased alcohol intake secondary to his vomiting. Vital signs revealed an elevated blood pressure of 152/93 and an elevated pulse of 102. Initial triage temperature was 98.6? orally, repeat or temperature in the emergency department was 100.1? F. Physical examination did reveal that he is tremulous and do believe that he is withdrawing from alcohol. This could explain the patient's high pulse and elevated blood pressure. Patient also has very dry mucous membranes and appears to be dehydrated. Differential includes was not limited to acute viral syndrome, bacterial pneumonia, viral pneumonia, alcohol withdrawal, dehydration. I ordered a CBC, CMP, lipase, alcohol level, lactate, blood cultures x2, COVID-19, influenza and RSV test . One-view chest x-ray was ordered as well. Patient will be treated with normal saline IV x2 L, Ativan 1 mg IV for withdrawal and for nausea and vomiting, Zofran 4 mg IV for nausea and vomiting and Tylenol 975 mg orally for fever. 2207: Patient's laboratory evaluation was similar to his blood work from earlier in the day. Patient's platelet count was low 122,000, AST and ALT are high 201 in 122, bilirubin was elevated at 1.5. Lactic acid was slightly elevated 2.1. Alcohol level was only 43. Patient's chest x-ray was negative. COVID-19 is positive. The patient's nausea did improve with the above treatment. The patient still is tremulous and he only got minimal improvement with Ativan 1 mg IV. The patient is withdrawing from alcohol, and IM concerned that he will not be able to continue to drink alcohol secondary to his viral illness and needs to be admitted for IV fluid hydration and management of his alcohol withdrawal. I will discuss the patient's presentation with the covering hospitalist. 2258: I did discuss the patient's presentation with the covering hospitalist, Dr. Grande. The patient be treated with Zithromax 500 mg IV. Also the patient will be started on phenobarbital protocol and admitted for further management of his alcohol withdrawal and his COVID-19 infection. The patient is not hypoxic therefore we will not give him steroids at this time. MDM - Nausea/Vomiting/Diarrhea Lab Data Result diagrams: 01/29/21 20:56 01/29/21 20:56 Labs: Lab Results 01/29/21 01/29/21 01/29/21 Range/Units 20:56 20:56 20:56 WBC 6.2 (4.8-10.8) X10*3/uL RBC 4.47 L (4.60-5.80) X10*6/uL Hgb 15.9 (14.0-18.0) g/dl Hct 43.9 (42.0-52.0) % MCV 98.2 H (80.0-98.0) fL MCH 35.6 H (27.0-33.0) pg MCHC 36.2 H (31.0-36.0) g/dl RDW 12.6 (11.0-16.0) % Plt Count 122 L (160-400) X10*3/uL MPV 10.8 (9.4-12.4) fL Immature Gran % (Auto) 0.3 (0.0-0.4) % Neut % (Auto) 74.5 H (45-73) % Lymph % (Auto) 12.8 L (20-40) % Kendall % (Auto) 11.6 H (2-11) % Eos % (Auto) 0.3 (0-4) % Baso % (Auto) 0.5 (0-2) % Lymph # (Auto) 0.8 L (1.2-4.9) X10*3/uL Kendall # (Auto) 0.7 (0.1-1.2) X10*3/uL Eos # (Auto) 0.0 (0.0-0.4) X10*3/uL Baso # (Auto) 0.0 (0.0-0.2) X10*3/uL Abs Immat Gran (auto) 0.02 (0.00-0.03) X10*3/uL Absolute Neuts (auto) 4.6 (2.0-8.3) x10*3/uL Absolute Nucleated RBC 0.000 (0.0-0.012) X10*3/uL Nucleated RBC % (auto) 0.0 (0.0-0.2) /100WBC Sodium 131 L (135-145) mmol/L Potassium 3.7 (3.3-5.1) mmol/L Chloride 92 L (96-108) mmol/L Carbon Dioxide 20 L (22-29) mmol/L Anion Gap 23 H (12-20) BUN 10 (9-16) mg/dL Creatinine 0.75 (0.5-1.4) mg/dL Estim Creat Clear Calc 120.3 Estimated GFR > 60 Random Glucose 89 (60-115) mg/dL Lactic Acid (0.5-2.0) mmol/L Calcium 9.8 (8.4-10.2) mg/dL Total Bilirubin 1.5 H (0.0-1.0) mg/dL AST 201 H (5-37) U/L ALT 121 H (0-40) U/L Alkaline Phosphatase 91 (39-117) U/L Total Protein 8.0 (6.5-8.0) g/dL Albumin 4.6 (3.5-5.0) g/dL Lipase 66 (8-78) U/L Ethyl Alcohol mg/dL Influenza Type A (PCR) NEGATIVE (Negative) Influenza Type B (PCR) NEGATIVE (Negative) RSV RNA Qual (PCR) NEGATIVE (Negative) SARS-CoV-2 RNA (RT-PCR) POSITIVE A (Negative) 01/29/21 01/29/21 Range/Units 20:56 20:56 WBC (4.8-10.8) X10*3/uL RBC (4.60-5.80) X10*6/uL Hgb (14.0-18.0) g/dl Hct (42.0-52.0) % MCV (80.0-98.0) fL MCH (27.0-33.0) pg MCHC (31.0-36.0) g/dl RDW (11.0-16.0) % Plt Count (160-400) X10*3/uL MPV (9.4-12.4) fL Immature Gran % (Auto) (0.0-0.4) % Neut % (Auto) (45-73) % Lymph % (Auto) (20-40) % Kendall % (Auto) (2-11) % Eos % (Auto) (0-4) % Baso % (Auto) (0-2) % Lymph # (Auto) (1.2-4.9) X10*3/uL Kendall # (Auto) (0.1-1.2) X10*3/uL Eos # (Auto) (0.0-0.4) X10*3/uL Baso # (Auto) (0.0-0.2) X10*3/uL Abs Immat Gran (auto) (0.00-0.03) X10*3/uL Absolute Neuts (auto) (2.0-8.3) x10*3/uL Absolute Nucleated RBC (0.0-0.012) X10*3/uL Nucleated RBC % (auto) (0.0-0.2) /100WBC Sodium (135-145) mmol/L Potassium (3.3-5.1) mmol/L Chloride (96-108) mmol/L Carbon Dioxide (22-29) mmol/L Anion Gap (12-20) BUN (9-16) mg/dL Creatinine (0.5-1.4) mg/dL Estim Creat Clear Calc Estimated GFR Random Glucose (60-115) mg/dL Lactic Acid 2.1 H* (0.5-2.0) mmol/L Calcium (8.4-10.2) mg/dL Total Bilirubin (0.0-1.0) mg/dL AST (5-37) U/L ALT (0-40) U/L Alkaline Phosphatase (39-117) U/L Total Protein (6.5-8.0) g/dL Albumin (3.5-5.0) g/dL Lipase (8-78) U/L Ethyl Alcohol 43 mg/dL Influenza Type A (PCR) (Negative) Influenza Type B (PCR) (Negative) RSV RNA Qual (PCR) (Negative) SARS-CoV-2 RNA (RT-PCR) (Negative) Discharge Plan Discharge Patient Disposition: Admitted As Inpatient
[2021-01-29] MEDS: Acetaminophen 325 MG TABLET 975 MG PO (21:07)
[2021-01-29] MEDS: ondansetron HCL 4 MG/2 ML VIAL IVPUSH (21:09)
[2021-01-29 21:11] LABS: PLT CLUMP 1; Red Cell Distribution Width 12.6 % (11.0-16.0); SCAN SMEAR FLAG 1
[2021-01-29] MEDS: LORazepam 2 MG/ML VIAL 1 MG IVPUSH (21:11)
[2021-01-29 21:13] LABS: Basophils Percent Auto 0.5 % (0-2); Eosinophils Percent Auto 0.3 % (0-4); Hematocrit 43.9 % (42.0-52.0); Hemoglobin 15.9 g/dl (14.0-18.0); Imm Gran Abs Auto 0.02 X10*3/uL (0.00-0.03); Imm Gran Pct Auto 0.3 % (0.0-0.4); Lymphocytes Absolute Auto 0.8 X10*3/uL (1.2-4.9); Lymphocytes Percent Auto 12.8 % (20-40); Mean Corpuscular HGB Conc 36.2 g/dl (31.0-36.0); Mean Corpuscular Hemoglobin 35.6 pg (27.0-33.0); Mean Corpuscular Volume 98.2 fL (80.0-98.0); Mean Platelet Volume 10.8 fL (9.4-12.4); Monocytes Absolute Auto 0.7 X10*3/uL (0.1-1.2); Monocytes Percent Auto 11.6 % (2-11); Neutrophils Absolute Auto 4.6 x10*3/uL (2.0-8.3); Neutrophils Percent Auto 74.5 % (45-73); Platelet Count 122 X10*3/uL (160-400); Red Blood Count 4.47 X10*6/uL (4.60-5.80); White Blood Count 6.2 X10*3/uL (4.8-10.8)
[2021-01-29 21:14] LABS: MANUAL DIFF FLAG NO
[2021-01-29] MEDS: 0.9 % Sodium Chloride 1,000 ML 999 ML IV ×2 (21:16→21:53)
[2021-01-29 21:24] LABS: Ethanol 43 mg/dL
[2021-01-29 21:29] LABS: Alanine Aminotransferase 121 U/L (0-40); Albumin Level 4.6 g/dL (3.5-5.0); Alkaline Phosphatase 91 U/L (39-117); Anion Gap 23 (12-20); Aspartate Amino Transferase 201 U/L (5-37); Bilirubin Total 1.5 mg/dL (0.0-1.0); Blood Urea Nitrogen 10 mg/dL (9-16); Calcium 9.8 mg/dL (8.4-10.2); Carbon Dioxide 20 mmol/L (22-29); Chloride 92 mmol/L (96-108); Creatinine Clr Calc Pharmacy 120.3; Estimated Glomerular Filt Rate > 60; Glucose Random 89 mg/dL (60-115); Lipase 66 U/L (8-78); Potassium 3.7 mmol/L (3.3-5.1); Sodium 131 mmol/L (135-145)
[2021-01-29 21:30] VITALS: BP 119/77; PULSE 91; RESP 16; TEMP 37.3; O2SAT 94
[2021-01-29 21:32] LABS: Lactic Acid 2.1 mmol/L (0.5-2.0)
[2021-01-29 21:49] LABS: Influenza A PCR NEGATIVE (Negative); Influenza B PCR NEGATIVE (Negative); Resp Syncy Virus RNA Qual PCR NEGATIVE (Negative)
[2021-01-29 22:20] LABS: SARS COV2 PCR INHOUSE POSITIVE (Negative)
[2021-01-29 22:37] VITALS: BP 120/79; PULSE 82; RESP 15; TEMP 36.8; O2SAT 96
--- NOTE | 2021-01-29 23:05 | P.HPHOSP_ITS ---
History of Present Illness Date of Service: 01/29/21 Chief Complaint: Nausea/vomiting 50-year-old male with a past medical history of asthma, alcohol abuse, history of pancreatitis presented to the hospital with a chief complaint of nausea vomiting. Patient reports that over the past 3 days he has been having nausea vomiting and loose stools; has been having reduced oral intake; mentions that he has been drinking alcohol regularly but for the past 3 days he has not been drinking. Also complains of cough with sputum production. No mentions that he had a fever of 100 unknown for nits. Denies any chest pain or palpitations. Denies any numbness tingling or focal weakness. Denies any blood in the vomitus or stool. Review of all other systems is negative except mentioned above ER course: Per ER team patient on presentation noted to be saturating 96% on room air; chest x-ray showed no acute findings; consult for possible bronchitis, given azithromycin. Patient also noted to be in alcohol withdrawal. Started on phenobarb protocol. Admitted for further management. [facility], [facility] Medical History (Updated 01/29/21 @ 23:05 by Maxim Grande MD) Asthma Autoimmune disease Lyme disease Pancreatitis Family History Father Heart attack Mother No problems noted. Sister No problems noted. Daughter No problems noted. Surgical History No pertinent past surgical history Social History Household Members: Spouse and Friend(s) Housing: House Do you presently have visiting nurse or other home services: No Alcohol intake: current Alcohol intake frequency: 3 or more drinks per day Alcohol type: beer and hard liquor Patient Tobacco Use Status: Current everyday Tobacco user Tobacco use type: Cigarette Cigarette Packs Per Day: 1 Cigarettes Per Day: 20.0 Years Smoked: 39 Smoked in Last 30 Days: Yes Use of substances other than those prescribed or required for medical reasons: No Substance Use Type: Marijuana Advance Directives: No Advance Directives Information Provided: No Current occupational status: unemployed Meds Allergies Allergy/AdvReac Type Severity Reaction Status Date / Time No Known Allergies Allergy Verified 01/29/21 18:28 Physical Exam Vital Signs and Narrative: Vital Signs: Last Vital Signs Temp 98.2 F 01/29/21 22:37 Pulse 82 01/29/21 22:37 Resp 15 01/29/21 22:37 BP 120/79 01/29/21 22:37 Pulse Ox 96 01/29/21 22:37 Body Mass Index 25.1 Results Labs CBC and Chem 7: 01/29/21 20:56 01/29/21 20:56 Labs: Laboratory Results - last 24 hr 01/29/21 01/29/21 01/29/21 20:56 20:56 20:56 MCV 98.2 H MCH 35.6 H MCHC 36.2 H RDW 12.6 Plt Count 122 L MPV 10.8 Immature Gran % (Auto) 0.3 Neut % (Auto) 74.5 H Lymph % (Auto) 12.8 L Ritchie % (Auto) 11.6 H Eos % (Auto) 0.3 Baso % (Auto) 0.5 Lymph # (Auto) 0.8 L Ritchie # (Auto) 0.7 Eos # (Auto) 0.0 Baso # (Auto) 0.0 Abs Immat Gran (auto) 0.02 Absolute Neuts (auto) 4.6 Absolute Nucleated RBC 0.000 Nucleated RBC % (auto) 0.0 Anion Gap 23 H Estim Creat Clear Calc 120.3 Estimated GFR > 60 Random Glucose 89 Lactic Acid Calcium 9.8 Total Bilirubin 1.5 H AST 201 H ALT 121 H Alkaline Phosphatase 91 Total Protein 8.0 Albumin 4.6 Lipase 66 Ethyl Alcohol Influenza Type A (PCR) NEGATIVE Influenza Type B (PCR) NEGATIVE RSV RNA Qual (PCR) NEGATIVE SARS-CoV-2 RNA (RT-PCR) POSITIVE A 01/29/21 01/29/21 20:56 20:56 MCV MCH MCHC RDW Plt Count MPV Immature Gran % (Auto) Neut % (Auto) Lymph % (Auto) Ritchie % (Auto) Eos % (Auto) Baso % (Auto) Lymph # (Auto) Ritchie # (Auto) Eos # (Auto) Baso # (Auto) Abs Immat Gran (auto) Absolute Neuts (auto) Absolute Nucleated RBC Nucleated RBC % (auto) Anion Gap Estim Creat Clear Calc Estimated GFR Random Glucose Lactic Acid 2.1 H* Calcium Total Bilirubin AST ALT Alkaline Phosphatase Total Protein Albumin Lipase Ethyl Alcohol 43 Influenza Type A (PCR) Influenza Type B (PCR) RSV RNA Qual (PCR) SARS-CoV-2 RNA (RT-PCR) Imaging Radiologist's Impressions: Impressions Chest X-Ray 01/29/21 20:24 IMPRESSION: Unremarkable examination. Assessment and Plan (1) Acute alcoholic hepatitis: Status: Acute (2) Alcohol withdrawal: Qualifiers: Complication of substance-induced condition: uncomplicated Qualified Code(s): F10.230 - Alcohol dependence with withdrawal, uncomplicated Status: Acute (3) COVID-19 virus RNA test result positive at limit of detection: Status: Acute 50-year-old male with a past medical history of asthma, alcohol abuse, history of pancreatitis presented to the hospital with a chief complaint of nausea vomiting. Noted to have the following conditions Alcohol withdrawal: Patient started on phenobarb protocol. Continue thiamine folate and multivitamin. Seizure precautions. 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 Alcoholic gastritis: IV Pepcid. Advanced diet as tolerated. Bronchitis: Continue azithromycin. COVID-19 positive: Patient is saturating 96% on room air. Supportive care. Isolation precautions. High anion gap acidosis: Likely alcoholic ketoacidosis. Patient on IV fluids. Transaminitis: Likely in setting of alcohol use. INR pending to calculate MDF score DVT prophylaxis: SCD boots Code status: Full code Quality Stroke Does the patient have a stroke diagnosis?: No VTE Prior VTE?: No VTE Risk Level:: Medical - moderate - high VTE Device Contraindication: N/A - Device Ordered VTE Drug Contraindication: Treatment Not Indicated
[2021-01-29 23:06] LABS: Reflex Lactate? Lactic Acid Added
[2021-01-29] MEDS: Nicotine 21 MG PATCH.TD24 TRANSDERMA (23:52)
[2021-01-29] MEDS: Azithromycin 500 MG in 0.9 % Sodium Chloride 250 ML 125 MG IV (23:53)
[2021-01-29] MEDS: Dextrose 5 % and 0.9 % NaCl 1,000 ML 100 ML IVCONT (23:54)
[2021-01-29 23:55] LABS: Prothrombin Time 11.7 SEC (9.9-13.0)
[2021-01-30 00:15] LABS: ~Lactic Acid-LAB USE ONLY 1.7 mmol/L (0.5-2.0)
[2021-01-30] MEDS: PHENobarbitaL 30 MG TABLET 240 MG PO (01:58)
[2021-01-30 02:12] VITALS: BP 132/82; PULSE 92; RESP 17; O2SAT 98
--- NOTE | 2021-01-30 02:56 | PC.NURSE ---
contacted admitting MD about phenobarb orders, IM ordered but previously given PO phenobarb, pt appears well and VSS
--- NOTE | 2021-01-30 04:23 | PC.NURSE ---
this RN spoke with pharmacy and Dr. Brunilda molina protocol phenobarb orders, pharmacy to place phenobarb IM orders per Dr. Shaffer
--- NOTE | 2021-01-30 05:05 | PC.NURSE ---
THIS RN CALLED HOSPITALIST TO REQUEST PT BE SEEN D/T PT REQUESTING TO LEAVE AMA. PER HOSPITAL PT ASKED TO WAIT UNTIL MD ABLE TO SEE.
--- NOTE | 2021-01-30 05:05 | PC.NURSE ---
This RN found the patient standing in room, ripped out IV and stating that he would like to go home, pt is calm and cooperative, oriented x3,Dr. Shaffer contacted to be made aware that pt wants to sign out AMA because he cannot sleep here. told this RN to give him a meltonin and for him to wait for the day MD. MD came to see the pt before leaving. pt stated that his brother was picking him up and had a safe way to get home, ambulating with a steady gait. pt aware of risks of leaving and signed AMA form.
--- NOTE | 2021-01-30 05:17 | PM.EVENT ---
Event Note Date of Service: 02/09/21 Event Note: Against medical advice discharge summary note: Patient does not wanted to stay in the hospital and went to leave against medical advice. I went in to speak to the patient. Explained the patient in detail about plan of care, risks and potential complications of leaving against medical advice which not only include worsening withdrawal symptoms/seizures which can even lead to ; also explained about his liver and gastritis concerns and poor oral intake. Along with metabolic derangement. Under patient to stay in hospital for continued treatment. Patient mentioned that he understood all these risks and he does not want to stay and has made up his mind and wants to leave against medical advice. Patient signed the AMA form with the RN. Patient did not want to wait for the medication prescription.
== END 2021-01-30 05:22 | disposition left against medical advice (07) | DRG 137 ==
LOC: HO.ED 22:38 → HO.EDOVER 23:19
PROVIDERS: Admitting Provider Hospitalist; Emergency Provider Emergency Medicine Emergency Medical Services; PCP Nurse Practitioner Family; Visit Provider Hospitalist
DX: U07.1 COVID-19 (principal); E87.2 Acidosis; K70.10 Alcoholic hepatitis without ascites; K29.20 Alcoholic gastritis without bleeding; F10.230 Alcohol dependence with withdrawal, uncomplicated; F17.210 Nicotine dependence, cigarettes, uncomplicated; Z71.6 Tobacco abuse counseling; Z79.899 Other long term (current) drug therapy
CPT/HCPCS: 0241U; 36415; 71045; 80053; 82077; 83605; 83690; 85025; 85610; 87040; 96361; 96365; 96366; 96372; 96375; 99285; J0456; J2060; J2405

== ENCOUNTER 2021-02-10 09:50 | Emergency (ER) | payer MEDICAID, SELFPAY ==
[2021-02-10 10:00] VITALS: BP 114/76; BP 120/78; PULSE 65; PULSE 66; RESP 18; TEMP 36.8; O2SAT 96; BMI 25.8
--- NOTE | 2021-02-10 10:20 | ED_ITS ---
HPI - Alcohol General Chief Complaint: ETOH/Substance Use Stated Complaint: ETOH Time Seen by Provider: 02/10/21 10:20 Source: patient Mode of arrival: EMS Limitations: other (intoxicated) History of Present Illness HPI narrative: Sent in by his for intoxicated MD complaint: alcohol intoxication Chronic alcohol use: Yes Previous visits for alcohol intoxication: Yes Recent trauma: Yes Associated symptoms: denies other symptoms Related Data Previous Rx's Medication Instructions Recorded albuterol sulfate 90 mcg/actuation 2 puff INHALATION Q6H PRN 30 Days 11/20/20 aerosol inhaler (ProAir HFA) #8.5 g doxycycline hyclate 100 mg tablet 100 mg PO Q12H 10 Days #20 tab 01/29/21 ondansetron 4 mg disintegrating 4 mg PO Q6-8H PRN #14 tab 01/29/21 tablet albuterol sulfate 90 mcg/actuation 1 inh INHALATION QID PRN 30 Days 02/02/21 aerosol inhaler #8.5 g prednisone 20 mg tablet 40 mg PO DAILY 5 Days #10 tab 02/02/21 Allergies Allergy/AdvReac Type Severity Reaction Status Date / Time No Known Allergies Allergy Verified 01/29/21 18:28 Review of Systems Constitutional: Constitutional: Reports no additional constitutional complaints Eyes: Eyes: Reports no additional eye complaints ENT: Denies dizziness Cardiovascular: Cardiovascular: Reports no additional cardiovascular complaints Respiratory: Respiratory: Reports as per HPI Gastrointestinal: Gastrointestinal: Reports no additional gastrointestinal complaints Musculoskeletal: Musculoskeletal: Reports no additional musculoskeletal complaints Integumentary/Breasts: Skin/Breast: Denies rash Neurologic: Reports system reviewed and no additional complaints, except as documented, Denies dizziness and Denies Sensory deficit (Neuro) Psychiatric: Psychiatric: Denies anxiety [facility] Past Medical History Medical History Asthma Autoimmune disease Lyme disease Pancreatitis Surgical History No pertinent past surgical history Family History Family History Father Heart attack Mother No problems noted. Sister No problems noted. Daughter No problems noted. Social History Social History Household Members: Spouse and Friend(s) Housing: House Do you presently have visiting nurse or other home services: No Alcohol intake: current Alcohol intake frequency: 3 or more drinks per day Alcohol type: beer and hard liquor Patient Tobacco Use Status: Current everyday Tobacco user Tobacco use type: Cigarette Cigarette Packs Per Day: 1 Cigarettes Per Day: 20.0 Years Smoked: 39 Substance Use Type: Marijuana Current occupational status: unemployed Physical Exam Vital Signs: Vital Signs: Last Vital Signs Temp 98.2 F 02/10/21 10:00 Pulse 65 02/10/21 10:00 Resp 18 02/10/21 10:00 BP 114/76 02/10/21 10:00 Pulse Ox 96 02/10/21 10:00 Body Mass Index 25.8 Const: Other: male intoxicated, denies suicidal or homicidal ideation Nutritional Appearance: average body habitus Orientation/consciousness: oriented to person Limitations: no limitations HENMT: Head: Yes normal to inspection Ears: external ears normal General nose exam: Normal external nose present Mouth: Normal oral and palatal mucosa present and oropharynx normal Throat: Yes posterior oropharynx normal Eyes: General: appearance normal, both eyes and all related structures Neck: Other: supple Neck: Yes normal visual inspection Chest: Chest palpation & inspection: normal inspection of the chest Resp: Auscultation: clear to auscultation bilaterally Cardio: Jugular venous distension: no JVD Rate: regular rate Rhythm: regular rhythm Heart sounds: S1 normal heart sound present and S2 normal heart sound present GI: Inspection: Yes normal to inspection Palpation (GI): Soft to palpation, nontender and No hepatosplenomegaly present Auscultation: normal bowel sounds : General: Yes no CVA tenderness Back/Spine/Pelvis: Back: no CVA tenderness Skin: General skin exam: no rashes or lesions noted Neuro: General: oriented to person Cranial nerves: Yes CN's II-XII intact bilaterally Motor exam (neuro): 5/5 motor strength present throughout Sensory Exam: No Sensory deficit (Neuro) Extrem: General: Yes normal to inspection Psych: Other: intoxicated Course Reevaluation(s) Reevaluation #1: patient refusing detox, will dc home with family Time: 11:09 Discharge Plan Discharge Clinical Impression: Alcoholic intoxication Patient Disposition: Home, Self-Care Instructions: Alcohol Intoxication (ED) Prescriptions: No Action albuterol sulfate 90 mcg/actuation HFA aerosol inhaler 1 inh inhalation QID PRN (Reason: shortness of breath or wheezing) 30 Days Qty: 8.5 RF: 3 prednisone 20 mg tablet 40 mg PO DAILY 5 Days Qty: 10 RF: 0 ondansetron 4 mg tablet,disintegrating 4 mg PO Q6-8H PRN (Reason: nausea and vomiting) Qty: 14 RF: 0 doxycycline hyclate 100 mg tablet 100 mg PO Q12H 10 Days Qty: 20 RF: 0 albuterol sulfate [ProAir HFA] 90 mcg/actuation HFA aerosol inhaler 2 puff inhalation Q6H PRN (Reason: shortness of breath or wheezing) 30 Days Qty: 8.5 RF: 4 Referrals: Physician,Unknown J [Physician] - 1 week
--- NOTE | 2021-02-10 10:52 | MHC.RECOVSUP ---
? Reason for consult:Recovery Support o Current location:ED6 o Identified substance use concern: ETOH - Overdose - Support ? Intervention: o Community resources provided o Harm reduction discussion ? Plan: o Referral to [facility] o Patient to follow up with [facility] after discharge ? Additional information: Patient is impaired right now, pt. refuses to go to detox, patient was spoken to about MAT and he was receptive. Notified DR. Angulo
== END 2021-02-10 11:27 | disposition home or self-care (01) ==
LOC: HO.ED 11:25
PROVIDERS: Emergency Provider Emergency Medicine; PCP Internal Medicine
DX: F10.129 Alcohol abuse with intoxication, unspecified (principal); Y90.9 Presence of alcohol in blood, level not specified; F17.210 Nicotine dependence, cigarettes, uncomplicated; F12.90 Cannabis use, unspecified, uncomplicated; Z71.6 Tobacco abuse counseling; Z79.899 Other long term (current) drug therapy
CPT/HCPCS: 99283

== ENCOUNTER 2021-05-13 09:29 | Emergency (ER) | payer MEDICAID, SELFPAY ==
[2021-05-13 09:46] VITALS: BP 128/86; PULSE 95; RESP 18; TEMP 36.6; O2SAT 97; BMI 25.1
--- NOTE | 2021-05-13 10:44 | ED_ITS ---
HPI - Back Pain/Injury General Chief Complaint: Back Pain/Injury Stated Complaint: Back pain/Vomiting Time Seen by Provider: 05/13/21 10:06 Source: patient Mode of arrival: ambulatory Limitations: no limitations History of Present Illness HPI Narrative: 51-year-old male with a past medical history of chronic back pain who has been seen here multiple times for alcohol intoxication presenting to the ED with his at bedside they both checked in for back pain requesting something for pain that is strong. He reports that this back pain started on Tuesday after he was at [employer] lifting and bending. He reports the back pain radiates to his left lower extremity which is similar compared to prior. When I walked into the exam room the patient was actually drinking alcohol shots with his . He denies any other symptoms related to this any traumas or any IV drug use. He denies any saddle anesthesia. He denies any paresthesias. He denies any urinary or bowel incontinence or retention. Denies history of cancer. MD elicited complaint: back pain Pertinent past history: prior back pain Onset (ago): day(s) Timing: constant and progressively worsening Severity: mild Similar Symptoms Previously: Yes Quality: sharp and aching Location: lumbar spine Radiation: left upper leg Exacerbating factors: movement, sitting upright, walking and lifting Relieving factors: none Context: while lifting, turning/twisting and bending Associated symptoms: denies other symptoms Treatments prior to arrival: other (See above) Work related injury: No Related Data Previous Rx's Medication Instructions Recorded albuterol sulfate 90 mcg/actuation 2 puff INHALATION Q6H PRN 30 Days 11/20/20 aerosol inhaler (ProAir HFA) #8.5 g doxycycline hyclate 100 mg tablet 100 mg PO Q12H 10 Days #20 tab 01/29/21 ondansetron 4 mg disintegrating 4 mg PO Q6-8H PRN #14 tab 01/29/21 tablet albuterol sulfate 90 mcg/actuation 1 inh INHALATION QID PRN 30 Days 02/02/21 aerosol inhaler #8.5 g prednisone 20 mg tablet 40 mg PO DAILY 5 Days #10 tab 02/02/21 acetaminophen 500 mg tablet 1,000 mg PO QID PRN #14 tab 05/13/21 (Tylenol Extra Strength) ibuprofen 800 mg tablet 800 mg PO Q8H PRN #14 tab 05/13/21 lidocaine 5 % topical patch 1 patch TOPICAL DAILY #15 ea 05/13/21 (Lidoderm) prednisone 20 mg tablet 40 mg PO DAILY 5 Days #10 tab 05/13/21 Allergies Allergy/AdvReac Type Severity Reaction Status Date / Time No Known Allergies Allergy Verified 01/29/21 18:28 Review of Systems Review of Systems: Constitutional : No trauma, No Weight loss, No Fever, No Chills, ENT/Mouth : No Hearing loss, No Ear Pain, No Nasal Congestion, No Sinus Pain, No Hoarseness, No sore throat, No Rhinorrhea, No Swallowing Difficulty Cardiovascular : No Chest Pain, No SOB Respiratory : No Cough, No Dyspnea Gastrointestinal : No Nausea, No Vomiting, No Diarrhea, No abdominal Pain, No Hematochezia, No Melena Genitourinary : No Dysuria, No Urinary Frequency, No Hematuria, No Urinary or Bowel Incontinence/retention Musculoskeletal : + Back pain, No neck pain, No joint stiffness, No joint swelling Skin : No Skin Lesions, No rash or signs of infection Neuro : No Weakness, + radiation, No Numbness, No Paresthesias, No headache, no loss of bowel or bladder incontinence, no saddle anesthesia, Focal weakness Denies history of IV drug usage. Yes all other systems are reviewed and are negative [facility] Past Medical History Attestation statement: The following information was validated with the patient. Medical History Asthma Autoimmune disease Lyme disease Pancreatitis Surgical History No pertinent past surgical history Family History Family History Father Heart attack Mother No problems noted. Sister No problems noted. Daughter No problems noted. Social History Social History Household Members: Spouse and Friend(s) Housing: House Do you presently have visiting nurse or other home services: No Alcohol intake: current Alcohol intake frequency: 3 or more drinks per day Alcohol type: beer and hard liquor Patient Tobacco Use Status: Current everyday Tobacco user Tobacco use type: Cigarette Cigarette Packs Per Day: 1 Cigarettes Per Day: 20.0 Years Smoked: 39 Substance Use Type: Marijuana Advance Directives: No Advance Directives Information Provided: No Current occupational status: unemployed Physical Exam Vital Signs: Vital Signs: Last Vital Signs Temp 97.9 F 05/13/21 09:46 Pulse 95 05/13/21 09:46 Resp 18 05/13/21 09:46 BP 128/86 05/13/21 09:46 Pulse Ox 97 05/13/21 09:46 BMI result Body Mass Index 25.1 vital signs have been reviewed as normal and appeared to be correct. Blood pressure normal. Heart rate normal. Respiration rate normal. Temperature normal. Oxygen saturation normal. Appearance: Alert. Oriented X3. No acute distress. Head: Normal external exam. Normocephalic. Atraumatic. No Argueta signs noted. No raccoon eyes noted Eyes: PERRLA. EOMI. Conjunctiva and sclera normal. Eyelids normal. ENT: EAC normal. TM's Normal. Pharynx normal. Uvula midline. Moist mucous membranes. No trismus noted. No drooling noted. No muffled voice noted. Neck: Normal inspection. Neck supple. FROM. No adenopathy. Thyroid Normal. No meningeal signs. No neck mass noted. CVS: Normal heart rate and rhythm. Heart sound normal. No murmurs noted. Pulses normal throughout. Respiratory: No respiratory distress. Painless inspiration. Breath sounds normal. No wheezes/rales/rhonchi noted. Chest nontender. No accessory muscle usage noted or decreased air movement noted. Abdomen: Soft and nontender. Bowel sounds normal in all 4 quadrants. No distention noted. No organomegaly noted. No visible injury noted. Back: No CVA tenderness. Full range of motion noted. No obvious deformities, or edema. Mild para-spinal muscular tenderness from lumbar region to coccyx. Full ROM in back and lower extremities. 5/5 strength hip extension/flexion, abduction, adduction. Mild Lumbar pain with hip flexion against resistance. Str aight leg raise test negative on right; Straight leg raise test negative on left; Reflexes normal ankle and knee bilaterally; EHL motor strength normal bilaterally. No rashes/lesion/induration/fluctuance or signs infection noted. Skin: Skin warm and dry. Normal skin color. Normal skin turgor. No rashes/lesions/lacerations noted. Extremities: No lower extremity edema. Extremities exhibit normal range of motion. Extremities nontender. Neuro: Oriented X 3. No motor deficit. No sensory deficit. Reflexes normal. Patient has a normal steady gait. Course Course Course Narrative: Pt c likely muscular pain, but could be herniated disc. Neuro exam shows no deficits. Not c/w AAA/epidural abscess/dissection.No high risk Hx (Incont, fever, immunosupp, recent surgery/LP, coag, signif trauma, wt loss, puls mass, hx/o Ca, TB, or IVDU) to warrant MRI/CT today. Not c/w Pyelo/UTI/kidney stone/s florencia fx. Not cauda equina syndrome. Imaging not currently indicated. When I walked in the exam room both him and his who both checked in for back pain were drinking alcohol shots therefore I explained to him that this is not appropriate when they are here in the emergency department for their back pain therefore I explained to them that I will not be given them any muscle relaxers or any narcotics and that they should not be drinking while in the emergency department. They denied any IV drug use. And they appear clinically sober. They are not interested in detox after I offered Therefore at this time they will be discharged with Motrin/Tylenol prednisone and Lidoderm patches with instructions to follow up with primary care provider and to return if any new or worsening symptoms. Patient and at bedside understand and agree with this plan. MDM - Back Pain/Injury Medical Records Attestation: I reviewed the patient's medical records. Discharge Plan Discharge Clinical Impression: Chronic back pain Patient Disposition: Home, Self-Care Instructions: Chronic Back Pain (DC) Additional Instructions: Because you were drinking in the exam room I cannot give you any sedative medications including muscle relaxers because you could possibly mix these medications and overdose and therefore he will only be giving Motrin/Tylenol and prednisone. Follow up with her primary care provider for further evaluation treatment return if any new or worsening symptoms. Prescriptions: New ibuprofen 800 mg tablet 800 mg PO Q8H PRN (Reason: pain) Qty: 14 0RF acetaminophen [Tylenol Extra Strength] 500 mg tablet 1,000 mg PO QID PRN (Reason: fever or pain) Qty: 14 0RF prednisone 20 mg tablet 40 mg PO DAILY 5 Days Qty: 10 0RF lidocaine [Lidoderm] 5 % adhesive patch,medicated 1 patch topical DAILY Qty: 15 0RF Rx Instructions: leave on most painful area for up to 12 hrs. May be substituted No Action albuterol sulfate 90 mcg/actuation HFA aerosol inhaler 1 inh inhalation QID PRN (Reason: shortness of breath or wheezing) 30 Days Qty: 8.5 3RF prednisone 20 mg tablet 40 mg PO DAILY 5 Days Qty: 10 0RF ondansetron 4 mg tablet,disintegrating 4 mg PO Q6-8H PRN (Reason: nausea and vomiting) Qty: 14 0RF doxycycline hyclate 100 mg tablet 100 mg PO Q12H 10 Days Qty: 20 0RF albuterol sulfate [ProAir HFA] 90 mcg/actuation HFA aerosol inhaler 2 puff inhalation Q6H PRN (Reason: shortness of breath or wheezing) 30 Days Qty: 8.5 4RF Referrals: Gulshan Chanel, [facility] [Primary Care Provider] - 2 days Print Language: Mexican
== END 2021-05-13 11:05 | disposition home or self-care (01) ==
PROVIDERS: Emergency Provider Emergency Medicine; PCP Nurse Practitioner Family
DX: G89.29 Other chronic pain (principal); M54.50 Low back pain, unspecified
CPT/HCPCS: 99283

== ENCOUNTER 2021-05-13 23:12 | Emergency (ER) | payer MEDICAID, SELFPAY ==
[2021-05-13 23:14] VITALS: BP 130/88; PULSE 108; RESP 18; TEMP 36.4; O2SAT 96; BMI 24.3
--- NOTE | 2021-05-14 00:30 | ED.BACK ---
HPI - Back Pain/Injury General Chief Complaint: Back Pain/Injury Stated Complaint: Back pain Time Seen by Provider: 05/14/21 00:14 Source: patient Mode of arrival: ambulatory Limitations: no limitations History of Present Illness HPI Narrative: 51-year-old male who presents emergency department for evaluation of lower back pain with pain radiating down his left leg to his ankle. The patient states that he has a history of sciatica for at least 4 years. He states that over the past week he has had increased pain in his lower back with the pain radiating down his left leg. He states the pain is constant but waxes and wanes in intensity. The pain can be 10/10 at its worst. He states that the pain is a sharp, burning sensation. He denies any weakness or numbness of the lower extremity. He denies loss of bowel or bladder control. Patient states he is not taking any medications for his pain. Related Data Previous Rx's Medication Instructions Recorded albuterol sulfate 90 mcg/actuation 2 puff INHALATION Q6H PRN 30 Days 11/20/20 aerosol inhaler (ProAir HFA) #8.5 g doxycycline hyclate 100 mg tablet 100 mg PO Q12H 10 Days #20 tab 01/29/21 ondansetron 4 mg disintegrating 4 mg PO Q6-8H PRN #14 tab 01/29/21 tablet albuterol sulfate 90 mcg/actuation 1 inh INHALATION QID PRN 30 Days 02/02/21 aerosol inhaler #8.5 g prednisone 20 mg tablet 40 mg PO DAILY 5 Days #10 tab 02/02/21 acetaminophen 500 mg tablet 1,000 mg PO QID PRN #14 tab 05/13/21 (Tylenol Extra Strength) ibuprofen 800 mg tablet 800 mg PO Q8H PRN #14 tab 05/13/21 lidocaine 5 % topical patch 1 patch TOPICAL DAILY #15 ea 05/13/21 (Lidoderm) prednisone 20 mg tablet 40 mg PO DAILY 5 Days #10 tab 05/13/21 cyclobenzaprine 10 mg tablet 10 mg PO TID PRN #15 tab 05/14/21 oxycodone 5 mg tablet 5 mg PO Q4H PRN #10 tab 05/14/21 prednisone 20 mg tablet 60 mg PO DAILY 7 Days #21 tab 05/14/21 Allergies Allergy/AdvReac Type Severity Reaction Status Date / Time No Known Allergies Allergy Verified 05/13/21 23:13 Review of Systems Review of Systems: Yes all other systems are reviewed and are negative [facility] Past Medical History [facility] Narrative: Past medical history: Gastritis, pancreatitis, alcoholic hepatitis, alcohol abuse, sciatica, COVID infection. Past surgical history: None. Social history: He smokes 3 cigarettes per day times 40 years. He drinks alcohol 3 times a week. He states that he often drinks 3 beers and 2 shots of whiskey.. He denies drug use. Medical History Asthma Autoimmune disease Lyme disease Pancreatitis Surgical History No pertinent past surgical history Family History Family History Father Heart attack Mother No problems noted. Sister No problems noted. Daughter No problems noted. Social History Social History Household Members: Spouse and Friend(s) Housing: House Do you presently have visiting nurse or other home services: No Alcohol intake: current Alcohol intake frequency: 3 or more drinks per day Alcohol type: beer and hard liquor Patient Tobacco Use Status: Current everyday Tobacco user Tobacco use type: Cigarette Cigarette Packs Per Day: 1 Cigarettes Per Day: 20.0 Years Smoked: 39 Substance Use Type: Marijuana Advance Directives: No Current occupational status: unemployed Physical Exam Vital Signs: Vital Signs: Last Vital Signs Temp 97.6 F 05/13/21 23:14 Pulse 108 H 05/13/21 23:14 Resp 18 05/13/21 23:14 BP 130/88 05/13/21 23:14 Pulse Ox 96 05/13/21 23:14 BMI result Body Mass Index 24.3 Const: General: cooperative and no acute distress Orientation/consciousness: oriented to person and oriented to place Limitations: no limitations HENMT: Head: Yes normal to inspection, Yes normocephalic and Yes atraumatic Ears: external ears normal General nose exam: Normal external nose present Face and sinus: Yes normal facial exam Mouth: Normal oral and palatal mucosa present Throat: Yes posterior oropharynx normal Eyes: General: appearance normal, both eyes and all related structures Pupils: Equal, round and reactive pupils present Neck: Neck: Yes normal visual inspection, Yes no lymphadenopathy, Yes trachea midline and Yes supple Chest: Chest palpation & inspection: normal inspection of the chest and normal palpation of entire chest wall Resp: Effort & Inspection: normal respiratory effort and able to speak in complete sentences Auscultation: clear to auscultation bilaterally Cardio: Rate: regular rate Rhythm: regular rhythm Heart sounds: S1 normal heart sound present, S2 normal heart sound present and no murmurs GI: Inspection: Yes normal to inspection Palpation (GI): Soft to palpation, nontender and no guarding Auscultation: normal bowel sounds Back/Spine/Pelvis: Other: Patient has tenderness palpation of his lumbar and sacral spine with increased tenderness with palpation over the left lumbar paraspinal muscles. He has positive straight leg raise in both legs. He has normal strength and normal light touch to both lower extremities. Skin: General skin exam: no rashes or lesions noted Neuro: General: oriented to person and oriented to place Cranial nerves: Yes CN's II-XII intact bilaterally and Yes Equal, round and reactive pupils present Cognition (Neuro): normal cognition Motor exam (neuro): 5/5 motor strength present throughout Extrem: General: Yes normal to inspection Psych: Appearance: grossly normal Speech and movement: Normal speech and movement present Affect: normal affect Attitude: cooperative Thought process: Normal thought process present Thought content: Normal thought content present Course Course Course Narrative: 51-year-old male who presents emergency department for evaluation of left lower lower back pain x1 week with the pain radiating down his left leg to his ankle. He states that he has a history of sciatica for at least 4 years. The patient's vital signs revealed elevated pulse of 108 but no fever. Patient's exam did reveal tenderness palpation of his lumbar and sacral spine as well as the lumbar paraspinal muscles and positive straight leg raises bilaterally. Patient's presentation is consistent with sciatica. The patient was started on prednisone 60 mg once a day for 7 days, Flexeril 10 mg 3 times a day as needed for pain and spasm and oxycodone 5 mg every 6 hours as needed for pain not relieved by prednisone and Flexeril. He was given printed and verbal instructions and discharged home. Discharge Plan Discharge Clinical Impression: Sciatica Qualifiers: Laterality: left Qualified Code(s): M54.32 - Sciatica, left side Patient Disposition: Home, Self-Care Instructions: Sciatica (ED) Additional Instructions: Your back pain is consistent with sciatica. I am prescribing 3 medications for you. Take prednisone 20 mg pills, 3 pills once a day for 7 days. This is a strong anti-inflammatory pain medication and should help reduce the inflammation around the sciatic nerve. For pain and back spasm take Flexeril (cyclobenzaprine) 10 mg pills, 1 pill every 6-8 hours as needed for pain and spasm. This medication will make you sleepy. Do not drive or work while taking this medication. For pain not relieved prednisone, take oxycodone 5 mg pills, 1 pill every 6 hours as needed for pain. Do not drive or work while taking this medication since they can cause sleepiness. Oxycodone is a narcotic medication that can be addicting. If you are concerned about addiction you can ask the pharmacist for less pills or do not get this prescription filled. Follow-up with your doctor in 2 days. Please return to the emergency department if your symptoms get worse or if you develop any symptoms that are concerning to you. Prescriptions: New cyclobenzaprine 10 mg tablet 10 mg PO TID PRN (Reason: pain, muscle spasm) Qty: 15 0RF prednisone 20 mg tablet 60 mg PO DAILY 7 Days Qty: 21 0RF oxycodone 5 mg tablet 5 mg PO Q4H PRN (Reason: pain) Qty: 10 0RF Rx Instructions: Patient may request partial fill No Action albuterol sulfate 90 mcg/actuation HFA aerosol inhaler 1 inh inhalation QID PRN (Reason: shortness of breath or wheezing) 30 Days Qty: 8.5 3RF prednisone 20 mg tablet 40 mg PO DAILY 5 Days Qty: 10 0RF ondansetron 4 mg tablet,disintegrating 4 mg PO Q6-8H PRN (Reason: nausea and vomiting) Qty: 14 0RF doxycycline hyclate 100 mg tablet 100 mg PO Q12H 10 Days Qty: 20 0RF ibuprofen 800 mg tablet 800 mg PO Q8H PRN (Reason: pain) Qty: 14 0RF acetaminophen [Tylenol Extra Strength] 500 mg tablet 1,000 mg PO QID PRN (Reason: fever or pain) Qty: 14 0RF prednisone 20 mg tablet 40 mg PO DAILY 5 Days Qty: 10 0RF lidocaine [Lidoderm] 5 % adhesive patch,medicated 1 patch topical DAILY Qty: 15 0RF Rx Instructions: leave on most painful area for up to 12 hrs. May be substituted albuterol sulfate [ProAir HFA] 90 mcg/actuation HFA aerosol inhaler 2 puff inhalation Q6H PRN (Reason: shortness of breath or wheezing) 30 Days Qty: 8.5 4RF
[2021-05-14] MEDS: predniSONE 20 MG TABLET 60 MG PO (00:54)
[2021-05-14] MEDS: oxyCODONE HCl Immed Release 5 MG TABLET PO (00:55)
== END 2021-05-14 00:59 | disposition home or self-care (01) ==
PROVIDERS: Emergency Provider Emergency Medicine Emergency Medical Services
DX: M54.42 Lumbago with sciatica, left side (principal); F17.200 Nicotine dependence, unspecified, uncomplicated; F12.90 Cannabis use, unspecified, uncomplicated
CPT/HCPCS: 99283; 99284

== ENCOUNTER 2021-06-22 11:25 | Emergency (ER) | payer OTHER, SELFPAY ==
[2021-06-22 12:43] VITALS: BP 113/80; PULSE 79; RESP 18; TEMP 36.6; O2SAT 98; BMI 25.1
[2021-06-22 13:15] LABS: MANUAL DIFF FLAG NO
[2021-06-22 13:18] LABS: Basophils Absolute Auto 0.1 X10*3/uL (0.0-0.2); Basophils Percent Auto 1.5 % (0-2); Eosinophils Absolute Auto 0.2 X10*3/uL (0.0-0.4); Eosinophils Percent Auto 3.4 % (0-4); Hematocrit 42.2 % (42.0-52.0); Hemoglobin 14.5 g/dl (14.0-18.0); Imm Gran Abs Auto 0.01 X10*3/uL (0.00-0.03); Imm Gran Pct Auto 0.2 % (0.0-0.4); Lymphocytes Absolute Auto 2.6 X10*3/uL (1.2-4.9); Lymphocytes Percent Auto 55.1 % (20-40); Mean Corpuscular HGB Conc 34.4 g/dl (31.0-36.0); Mean Corpuscular Hemoglobin 34.6 pg (27.0-33.0); Mean Corpuscular Volume 100.7 fL (80.0-98.0); Monocytes Absolute Auto 0.4 X10*3/uL (0.1-1.2); Monocytes Percent Auto 8.9 % (2-11); Neutrophils Absolute Auto 1.5 x10*3/uL (2.0-8.3); Neutrophils Percent Auto 30.9 % (45-73); Platelet Count 137 X10*3/uL (160-400); Red Blood Count 4.19 X10*6/uL (4.60-5.80); Red Cell Distribution Width 13.1 % (11.0-16.0); White Blood Count 4.7 X10*3/uL (4.8-10.8)
[2021-06-22 13:31] LABS: Anion Gap 17 (12-20); Blood Urea Nitrogen 6 mg/dL (9-16); Calcium 9.3 mg/dL (8.4-10.2); Carbon Dioxide 26 mmol/L (22-29); Chloride 102 mmol/L (96-108); Creatinine Clr Calc Pharmacy 129.3; Estimated Glomerular Filt Rate > 60; Glucose Random 103 mg/dL (60-115); Potassium 3.7 mmol/L (3.3-5.1); Sodium 141 mmol/L (135-145)
[2021-06-22 13:37] LABS: COVID-19 Test Negative (Negative)
--- NOTE | 2021-06-22 14:10 | MHC.RECOVSUP ---
Recovery Support note: Patient is a 51 year old [place] speaking male who presented to [facility] seeking [place]. This health underwriter met with patient in the waiting room to check in and discuss detox referrals. Patient provided with contact information to [facility] to complete phone intake to potentially secure a bed.
== END 2021-06-22 16:17 | disposition left against medical advice (07) ==
PROVIDERS: Emergency Provider Emergency Medicine; PCP Nurse Practitioner Family
DX: F10.20 Alcohol dependence, uncomplicated (principal); Y90.9 Presence of alcohol in blood, level not specified; Z20.822 Contact with and (suspected) exposure to COVID-19
CPT/HCPCS: 80048; 85025; 87635; 99282; 99283

== ENCOUNTER 2021-07-04 23:04 | Emergency (ER) | payer OTHER, SELFPAY ==
--- NOTE | ~2021-07-04 | CT_ITS ---
EXAMINATION: CT ABDOMEN AND PELVIS WITHOUT CONTRAST CLINICAL INFORMATION: Left upper quadrant pain. Hepatomegaly. COMPARISON: 08/13/2020 TECHNIQUE: Multidetector volumetric imaging was performed from the superior aspect of the liver through the pubic symphysis. Sagittal and coronal reformatted images were obtained on the technologist's workstation. This CT examination was performed using dose optimization techniques as appropriate, variously including the following: *Automated exposure control *Adjustment of mA and/or kV according to patient size (this includes techniques or standardized protocols for targeted exams where dose is matched to indication/reason for exam; i.e. extremities or head) *Use of iterative reconstruction technique DLP: 541 mGy-cm FINDINGS: LUNG BASES: The visualized lung bases are unremarkable. LIVER, GALLBLADDER, AND BILIARY TREE: Mild hepatomegaly. Severe diffuse hepatic steatosis. No focal liver lesions. No biliary dilatation. Cholelithiasis. PANCREAS: Unremarkable. SPLEEN: Unremarkable. ADRENAL GLANDS: Unremarkable. KIDNEYS AND URETERS: The kidneys are normal in size, shape, and attenuation. No hydronephrosis, hydroureter, or calculi seen. No perinephric stranding. BLADDER: Unremarkable. GASTROINTESTINAL TRACT: No intestinal obstruction or inflammation. Normal appendix. ABDOMINAL WALL: No significant hernia is appreciated. LYMPH NODES: Normal. VASCULAR: Aorta mildly atherosclerotic but normal caliber. PELVIC VISCERA: Prostatomegaly. OSSEOUS STRUCTURES: Unremarkable. CT/CT abdomen pelvis wo con IMPRESSION: No acute findings. Severe hepatic steatosis. Fleischner guidelines were followed.
--- NOTE | ~2021-07-04 | XR_ITS ---
EXAMINATION: XR CHEST CLINICAL INFORMATION: Vomiting COMPARISON: 01/29/2021 TECHNIQUE: Frontal view of the chest was obtained. FINDINGS: Normal symmetric lung volumes. No parenchymal consolidation. No pleural effusion. No pneumothorax. Cardiomediastinal silhouette and pulmonary vascularity are within normal limits. Aorta is atherosclerotic. No acute osseous abnormalities. XR/XR chest 1V IMPRESSION: Unremarkable examination.
[2021-07-04 23:20] VITALS: BP 134/85; PULSE 75; RESP 16; TEMP 36.7; O2SAT 99; BMI 24.3
[2021-07-04] MEDS: Ondansetron ODT 4 MG TAB.RAPDIS TRANSLINGU (23:32)
[2021-07-04 23:38] LABS: MANUAL DIFF FLAG NO
[2021-07-04 23:40] LABS: Basophils Absolute Auto 0.1 X10*3/uL (0.0-0.2); Basophils Percent Auto 1.1 % (0-2); Eosinophils Percent Auto 0.3 % (0-4); Hematocrit 42.7 % (42.0-52.0); Hemoglobin 15.2 g/dl (14.0-18.0); Imm Gran Abs Auto 0.03 X10*3/uL (0.00-0.03); Imm Gran Pct Auto 0.5 % (0.0-0.4); Lymphocytes Absolute Auto 0.9 X10*3/uL (1.2-4.9); Lymphocytes Percent Auto 15.1 % (20-40); Mean Corpuscular HGB Conc 35.6 g/dl (31.0-36.0); Mean Corpuscular Hemoglobin 34.7 pg (27.0-33.0); Mean Corpuscular Volume 97.5 fL (80.0-98.0); Mean Platelet Volume 10.2 fL (9.4-12.4); Monocytes Absolute Auto 0.6 X10*3/uL (0.1-1.2); Monocytes Percent Auto 10.5 % (2-11); Neutrophils Absolute Auto 4.4 x10*3/uL (2.0-8.3); Neutrophils Percent Auto 72.5 % (45-73); Platelet Count 143 X10*3/uL (160-400); Red Blood Count 4.38 X10*6/uL (4.60-5.80); Red Cell Distribution Width 13.2 % (11.0-16.0); White Blood Count 6.1 X10*3/uL (4.8-10.8)
[2021-07-04 23:57] LABS: Influenza A Negative (Negative); Influenza B2 Negative (Negative)
[2021-07-05 00:02] LABS: Alanine Aminotransferase 87 U/L (0-40); Albumin Level 4.8 g/dL (3.5-5.0); Alkaline Phosphatase 114 U/L (39-117); Anion Gap 28 (12-20); Aspartate Amino Transferase 145 U/L (5-37); Bilirubin Total 2.6 mg/dL (0.0-1.0); Blood Urea Nitrogen 8 mg/dL (9-16); Calcium 9.9 mg/dL (8.4-10.2); Carbon Dioxide 21 mmol/L (22-29); Chloride 93 mmol/L (96-108); Creatinine Clr Calc Pharmacy 114.3; Estimated Glomerular Filt Rate > 60; Glucose Random 190 mg/dL (60-115); Potassium 3.5 mmol/L (3.3-5.1); Sodium 138 mmol/L (135-145); Total Protein 8.3 g/dL (6.5-8.0)
--- NOTE | 2021-07-05 00:09 | ECG_ITS ---
Test Reason : TREMORS Blood Pressure : / mmHG Vent. Rate : 059 BPM Atrial Rate : 059 BPM P-R Int : 110 ms QRS Dur : 094 ms QT Int : 588 ms P-R-T Axes : 084 037 087 degrees QTc Int : 582 ms Sinus bradycardia with short ID ST & T wave abnormality, consider anterior ischemia Prolonged QT Abnormal ECG When compared with ECG of 18-MAY-2020 06:46, T wave inversion more evident in Anterior leads QT has lengthened Referred By: Anne Tadeo Electronically Signed By:Bennie De Paz
[2021-07-05 00:14] LABS: COVID-19 Test Negative (Negative); IDNOW Serial# 16C4AD1C
--- NOTE | 2021-07-05 00:17 | ED.ALCOHOL ---
HPI - Alcohol General Chief Complaint: Nausea/Vomiting/Diarrhea Stated Complaint: Vomiting Time Seen by Provider: 07/05/21 00:08 Source: patient Mode of arrival: ambulatory Limitations: no limitations History of Present Illness HPI narrative: 51-year-old male presents with nausea, vomiting, tremors, and alcohol withdrawal. States to drink at least 8 shots of alcohol daily. He did drink on 07/04. Does have a history of EtOH withdrawal and pancreatitis and acute alcoholic hepatitis. He is complaining of abdominal pain to left upper quadrant. MD complaint: alcohol withdrawal Last drink: Days (ago) (1) Amount of alcohol consumed: 8 shots Chronic alcohol use: Yes Previous visits for alcohol intoxication: Yes Recent trauma: No Associated symptoms: nausea, vomiting, tremors and abdominal pain Treatments prior to arrival: none Related Data Previous Rx's Medication Instructions Recorded albuterol sulfate 90 mcg/actuation 2 puff INHALATION Q6H PRN 30 Days 11/20/20 aerosol inhaler (ProAir HFA) #8.5 g doxycycline hyclate 100 mg tablet 100 mg PO Q12H 10 Days #20 tab 01/29/21 ondansetron 4 mg disintegrating 4 mg PO Q6-8H PRN #14 tab 01/29/21 tablet albuterol sulfate 90 mcg/actuation 1 inh INHALATION QID PRN 30 Days 02/02/21 aerosol inhaler #8.5 g prednisone 20 mg tablet 40 mg PO DAILY 5 Days #10 tab 02/02/21 acetaminophen 500 mg tablet 1,000 mg PO QID PRN #14 tab 05/13/21 (Tylenol Extra Strength) ibuprofen 800 mg tablet 800 mg PO Q8H PRN #14 tab 05/13/21 lidocaine 5 % topical patch 1 patch TOPICAL DAILY #15 ea 05/13/21 (Lidoderm) prednisone 20 mg tablet 40 mg PO DAILY 5 Days #10 tab 05/13/21 cyclobenzaprine 10 mg tablet 10 mg PO TID PRN #15 tab 05/14/21 oxycodone 5 mg tablet 5 mg PO Q4H PRN #10 tab 05/14/21 prednisone 20 mg tablet 60 mg PO DAILY 7 Days #21 tab 05/14/21 Allergies Allergy/AdvReac Type Severity Reaction Status Date / Time No Known Allergies Allergy Verified 06/22/21 12:48 Review of Systems Review of Systems: Constitutional: Positive tremors, No Weight loss, No Fever, No Chills, No Night Sweats, No Fatigue, No Malaise ENT/Mouth: No Hearing loss, No Ear Pain, No Nasal Congestion, No Sinus Pain, No Hoarseness, No sore throat, No Rhinorrhea, No Swallowing Difficulty Eyes: No Eye Pain, No Swelling, No Redness, No Foreign Body, No Discharge, No Vision Changes Cardiovascular: No Chest Pain, No SOB, No Dyspnea on Exertion, No Orthopnea, No Edema, No Palpitations Respiratory: No Cough, No Sputum, No Wheezing, No Smoke Exposure, No Dyspnea Gastrointestinal: Positive Nausea, Positive Vomiting, no Diarrhea, positive abdominal Pain, No Hematochezia, No Melena Genitourinary: no irregular bleeding, No Dysuria, No Urinary Frequency, No Hematuria, No Urinary Incontinence, No Urgency, No Flank Pain, No Urinary Flow Changes, No Hesitancy Musculoskeletal: No joint pain, No Myalgias, No Joint Swelling Skin: No Skin Lesions, No rash Neuro: No Weakness, No Numbness, No Paresthesias, No Loss of Consciousness, No Dizziness, No Headache Psych: Positive alcohol withdrawal,Positive Anxiety, no Panic, No Depression, No SI/HI/AH/VH, No Social Issues Heme/Lymph: No Bruising, No Bleeding,No Lymphadenopathy Endocrine: No Polyuria, No Polydipsia, No Temperature Intolerance Yes all other systems are reviewed and are negative [facility] Past Medical History Attestation statement: The following information was validated with the patient. Source: old records reviewed Medical History Asthma Autoimmune disease Lyme disease Pancreatitis Surgical History No pertinent past surgical history Family History Family History Father Heart attack Mother No problems noted. Sister No problems noted. Daughter No problems noted. Social History Social History Household Members: Spouse and Friend(s) Housing: House Do you presently have visiting nurse or other home services: No Alcohol intake: current Alcohol intake frequency: 3 or more drinks per day Alcohol type: hard liquor Patient Tobacco Use Status: Tobacco use Unknown Tobacco use type: Cigarette Cigarette Packs Per Day: 1 Cigarettes Per Day: 20.0 Years Smoked: 39 Use of substances other than those prescribed or required for medical reasons: Unknown Substance Use Type: Marijuana Advance Directives: No Current occupational status: unemployed Physical Exam ED Vital Signs: Vital Signs - 24 hr 07/04/21 23:20 07/05/21 00:30 Temperature 98.1 F Pulse Rate 75 63 Respiratory Rate 16 14 Blood Pressure 134/85 125/88 Pulse Oximetry 99 95 BMI result Body Mass Index 24.3 Appearance: Alert. Oriented X3. Moderate distress. Tremors Eyes: Pupils equal, round and reactive to light. Sclera mildly icteric. ENT: Pharynx normal. Dry mucous membranes. Neck: Normal inspection. Neck supple. No JVD. CVS: Normal heart rate and rhythm. Pulses normal. Respiratory: No respiratory distress. Breath sounds normal. Abdomen: Soft and nontender. Skin: Skin warm and dry. Normal skin color. Normal skin turgor. Extremities: No lower extremity edema. Moves all extremities against resistance. Neuro: No motor deficit. No sensory deficit. Cranial nerves 2-12 intact. No asterixis is noted. Course Course Course Narrative: 51-year-old male presents with nausea, vomiting, tremors and alcohol withdrawal. Patient does have a history of ETOH withdrawal, acute alcoholic hepatitis, and pancreatitis. Last drink was on 07/04/2021. Patient is not suicidal or homicidal. Physical exam indicates a hepatomegaly and left upper quadrant abdominal pain on palpation. Labs indicated anion gap of 28 most likely due to alcoholism, magnesium of 1.5, bili of 2.6, AST 145, ALT 87, most likely secondary to EtOH hepatitis. Lipase 62 and ammonia is 25. Troponins are negative. COVID negative. Ethyl alcohol less than 10 Will treat with 2 mg of IV Ativan at this time, Zofran, and 2 L of fluid to help correct anion gap and alcoholic acidosis. Will give 2 g of Mag IV. Order for CT scan of abdomen pelvis for pancreatitis rule out. [place] Q2H 01:59 CT scan of abdomen pelvis negative for acute findings requiring emergent intervention. Discussion with patient, he does not want detox at this time. I will give 1 dose of p.o. Ativan 2 mg and discharge this patient home.Patient verbalized understanding of and agrees to plan of care to discharge home. Verbalized understanding of signs and symptoms indicating need for emergent intervention MDM - Alcohol Differential Diagnosis Differential diagnosis: Likely alcohol dependence, alcohol withdrawal delirium, hypomagnesemia, alcohol intoxication, alcohol ketoacidosis, alcohol withdrawal syndrome and alcohol withdrawal seizure Medical Records Attestation: I reviewed the patient's medical records. Lab Data Attestation: I reviewed the patient's lab results. Result diagrams: 07/04/21 23:33 07/04/21 23:33 Labs: Lab Results 07/04/21 07/04/21 07/04/21 Range/Units 23:33 23:33 23:33 WBC 6.1 (4.8-10.8) X10*3/uL RBC 4.38 L (4.60-5.80) X10*6/uL Hgb 15.2 (14.0-18.0) g/dl Hct 42.7 (42.0-52.0) % MCV 97.5 (80.0-98.0) fL MCH 34.7 H (27.0-33.0) pg MCHC 35.6 (31.0-36.0) g/dl RDW 13.2 (11.0-16.0) % Plt Count 143 L (160-400) X10*3/uL MPV 10.2 (9.4-12.4) fL Immature Gran % (Auto) 0.5 H (0.0-0.4) % Neut % (Auto) 72.5 (45-73) % Lymph % (Auto) 15.1 L (20-40) % Butler % (Auto) 10.5 (2-11) % Eos % (Auto) 0.3 (0-4) % Baso % (Auto) 1.1 (0-2) % Lymph # (Auto) 0.9 L (1.2-4.9) X10*3/uL Butler # (Auto) 0.6 (0.1-1.2) X10*3/uL Eos # (Auto) 0.0 (0.0-0.4) X10*3/uL Baso # (Auto) 0.1 (0.0-0.2) X10*3/uL Abs Immat Gran (auto) 0.03 (0.00-0.03) X10*3/uL Absolute Neuts (auto) 4.4 (2.0-8.3) x10*3/uL Absolute Nucleated RBC 0.000 (0.0-0.012) X10*3/uL Nucleated RBC % (auto) 0.0 (0.0-0.2) /100WBC Sodium 138 (135-145) mmol/L Potassium 3.5 (3.3-5.1) mmol/L Chloride 93 L (96-108) mmol/L Carbon Dioxide 21 L (22-29) mmol/L Anion Gap 28 H (12-20) BUN 8 L (9-16) mg/dL Creatinine 0.78 (0.5-1.4) mg/dL Estim Creat Clear Calc 114.3 Estimated GFR > 60 Random Glucose 190 H D (60-115) mg/dL Calcium 9.9 D (8.4-10.2) mg/dL Magnesium 1.5 L (1.6-2.6) mg/dL Total Bilirubin 2.6 H (0.0-1.0) mg/dL AST 145 H (5-37) U/L ALT 87 H (0-40) U/L Alkaline Phosphatase 114 D (39-117) U/L Ammonia (13-55) umol/L Troponin I High Sens (<3.5-35.0) ng/L Total Protein 8.3 H (6.5-8.0) g/dL Albumin 4.8 (3.5-5.0) g/dL Lipase 62 (8-78) U/L Ethyl Alcohol mg/dL COVID-19 ([facility]) (Negative) COVID-19 Clin Com Influenza Type A ([facility]) Negative (Negative) Influenza Type B ([facility]) Negative (Negative) Influenza A & B Note See Note 07/04/21 07/04/21 07/04/21 Range/Units 23:33 23:33 23:33 WBC (4.8-10.8) X10*3/uL RBC (4.60-5.80) X10*6/uL Hgb (14.0-18.0) g/dl Hct (42.0-52.0) % MCV (80.0-98.0) fL MCH (27.0-33.0) pg MCHC (31.0-36.0) g/dl RDW (11.0-16.0) % Plt Count (160-400) X10*3/uL MPV (9.4-12.4) fL Immature Gran % (Auto) (0.0-0.4) % Neut % (Auto) (45-73) % Lymph % (Auto) (20-40) % Butler % (Auto) (2-11) % Eos % (Auto) (0-4) % Baso % (Auto) (0-2) % Lymph # (Auto) (1.2-4.9) X10*3/uL Butler # (Auto) (0.1-1.2) X10*3/uL Eos # (Auto) (0.0-0.4) X10*3/uL Baso # (Auto) (0.0-0.2) X10*3/uL Abs Immat Gran (auto) (0.00-0.03) X10*3/uL Absolute Neuts (auto) (2.0-8.3) x10*3/uL Absolute Nucleated RBC (0.0-0.012) X10*3/uL Nucleated RBC % (auto) (0.0-0.2) /100WBC Sodium (135-145) mmol/L Potassium (3.3-5.1) mmol/L Chloride (96-108) mmol/L Carbon Dioxide (22-29) mmol/L Anion Gap (12-20) BUN (9-16) mg/dL Creatinine (0.5-1.4) mg/dL Estim Creat Clear Calc Estimated GFR Random Glucose (60-115) mg/dL Calcium (8.4-10.2) mg/dL Magnesium (1.6-2.6) mg/dL Total Bilirubin (0.0-1.0) mg/dL AST (5-37) U/L ALT (0-40) U/L Alkaline Phosphatase (39-117) U/L Ammonia (13-55) umol/L Troponin I High Sens < 3.5 (<3.5-35.0) ng/L Total Protein (6.5-8.0) g/dL Albumin (3.5-5.0) g/dL Lipase (8-78) U/L Ethyl Alcohol < 10 mg/dL COVID-19 ([facility]) Negative (Negative) COVID-19 Clin Com See Note Influenza Type A ([facility]) (Negative) Influenza Type B ([facility]) (Negative) Influenza A & B Note 07/05/21 Range/Units 00:29 WBC (4.8-10.8) X10*3/uL RBC (4.60-5.80) X10*6/uL Hgb (14.0-18.0) g/dl Hct (42.0-52.0) % MCV (80.0-98.0) fL MCH (27.0-33.0) pg MCHC (31.0-36.0) g/dl RDW (11.0-16.0) % Plt Count (160-400) X10*3/uL MPV (9.4-12.4) fL Immature Gran % (Auto) (0.0-0.4) % Neut % (Auto) (45-73) % Lymph % (Auto) (20-40) % Butler % (Auto) (2-11) % Eos % (Auto) (0-4) % Baso % (Auto) (0-2) % Lymph # (Auto) (1.2-4.9) X10*3/uL Butler # (Auto) (0.1-1.2) X10*3/uL Eos # (Auto) (0.0-0.4) X10*3/uL Baso # (Auto) (0.0-0.2) X10*3/uL Abs Immat Gran (auto) (0.00-0.03) X10*3/uL Absolute Neuts (auto) (2.0-8.3) x10*3/uL Absolute Nucleated RBC (0.0-0.012) X10*3/uL Nucleated RBC % (auto) (0.0-0.2) /100WBC Sodium (135-145) mmol/L Potassium (3.3-5.1) mmol/L Chloride (96-108) mmol/L Carbon Dioxide (22-29) mmol/L Anion Gap (12-20) BUN (9-16) mg/dL Creatinine (0.5-1.4) mg/dL Estim Creat Clear Calc Estimated GFR Random Glucose (60-115) mg/dL Calcium (8.4-10.2) mg/dL Magnesium (1.6-2.6) mg/dL Total Bilirubin (0.0-1.0) mg/dL AST (5-37) U/L ALT (0-40) U/L Alkaline Phosphatase (39-117) U/L Ammonia 25 (13-55) umol/L Troponin I High Sens (<3.5-35.0) ng/L Total Protein (6.5-8.0) g/dL Albumin (3.5-5.0) g/dL Lipase (8-78) U/L Ethyl Alcohol mg/dL COVID-19 ([facility]) (Negative) COVID-19 Clin Com Influenza Type A ([facility]) (Negative) Influenza Type B ([facility]) (Negative) Influenza A & B Note Imaging Data Chest x-ray: Attestation: I personally reviewed and interpreted this imaging study as follows: Radiologist's impression: EXAMINATION: XR CHEST CLINICAL INFORMATION: Vomiting COMPARISON: 01/29/2021 TECHNIQUE: Frontal view of the chest was obtained. FINDINGS: Normal symmetric lung volumes. No parenchymal consolidation. No pleural effusion. No pneumothorax.? Cardiomediastinal silhouette and pulmonary vascularity are within normal limits. Aorta is atherosclerotic. No acute osseous abnormalities. XR/XR chest 1V IMPRESSION: Unremarkable examination. ? Abdomen pelvis CT: Attestation: I personally reviewed and interpreted this imaging study as follows: Radiologist's impression: FINDINGS: LUNG BASES: The visualized lung bases are unremarkable.? LIVER, GALLBLADDER, AND BILIARY TREE: Mild hepatomegaly. Severe diffuse hepatic steatosis. No focal liver lesions. No biliary dilatation. Cholelithiasis. PANCREAS: Unremarkable.? SPLEEN: Unremarkable.? ADRENAL GLANDS: Unremarkable.? KIDNEYS AND URETERS: The kidneys are normal in size, shape, and attenuation. No hydronephrosis, hydroureter, or calculi seen. No perinephric stranding. ? BLADDER: Unremarkable.? GASTROINTESTINAL TRACT: No intestinal obstruction or inflammation. Normal appendix. ABDOMINAL WALL: No significant hernia is appreciated.? LYMPH NODES: Normal. VASCULAR: Aorta mildly atherosclerotic but normal caliber. PELVIC VISCERA: Prostatomegaly.? OSSEOUS STRUCTURES: Unremarkable.? CT/CT abdomen pelvis wo con IMPRESSION: No acute findings. Severe hepatic steatosis.? ? Fleischner guidelines were followed. ECG Data ECG #1: Attestation: I personally reviewed and interpreted this ECG as follows: ECG interpretation date: 07/05/21 ECG interpretation time: 00:15 Prior ECG tracings: available for review Interpretation: Vent. rate 59 BPM NV interval 110 ms QRS duration 94 ms QT/QTc 588/582 ms P-R-T axes 84 37 87 Sinus bradycardia with short NV ST & T wave abnormality, consider anterior ischemia Prolonged QT Abnormal ECG When compared with ECG of 18-MAY-2020 06:46, T wave inversion more evident in Anterior leads QT has lengthened Critical Care Time Critical Care Time Critical Care Time: Yes Total Critical Care Time: 45 Attestation: I have personally provided critical care time exclusive of time spent on separately billable procedures. Time includes review of laboratory data, radiology results, discussion with consultants, and monitoring for potential decompensation. Interventions were performed as documented. Discharge Plan Discharge Clinical Impression: Alcoholic gastritis, Alcoholic hepatitis, Alcohol withdrawal Patient Disposition: Home, Self-Care Instructions: Alcohol Withdrawal (ED), Alcoholic Hepatitis (ED) Additional Instructions: Please consider detox. Thank you for choosing this emergency department for evaluation. Please follow-up with primary care physician as needed. Return to the emergency department for any new, concerning, or worsening symptoms. Prescriptions: No Action albuterol sulfate 90 mcg/actuation HFA aerosol inhaler 1 inh inhalation QID PRN (Reason: shortness of breath or wheezing) 30 Days Qty: 8.5 3RF prednisone 20 mg tablet 40 mg PO DAILY 5 Days Qty: 10 0RF ondansetron 4 mg tablet,disintegrating 4 mg PO Q6-8H PRN (Reason: nausea and vomiting) Qty: 14 0RF doxycycline hyclate 100 mg tablet 100 mg PO Q12H 10 Days Qty: 20 0RF cyclobenzaprine 10 mg tablet 10 mg PO TID PRN (Reason: pain, muscle spasm) Qty: 15 0RF prednisone 20 mg tablet 60 mg PO DAILY 7 Days Qty: 21 0RF oxycodone 5 mg tablet 5 mg PO Q4H PRN (Reason: pain) Qty: 10 0RF Rx Instructions: Patient may request partial fill ibuprofen 800 mg tablet 800 mg PO Q8H PRN (Reason: pain) Qty: 14 0RF acetaminophen [Tylenol Extra Strength] 500 mg tablet 1,000 mg PO QID PRN (Reason: fever or pain) Qty: 14 0RF prednisone 20 mg tablet 40 mg PO DAILY 5 Days Qty: 10 0RF lidocaine [Lidoderm] 5 % adhesive patch,medicated 1 patch topical DAILY Qty: 15 0RF Rx Instructions: leave on most painful area for up to 12 hrs. May be substituted albuterol sulfate [ProAir HFA] 90 mcg/actuation HFA aerosol inhaler 2 puff inhalation Q6H PRN (Reason: shortness of breath or wheezing) 30 Days Qty: 8.5 4RF
[2021-07-05 00:30] VITALS: BP 125/88; PULSE 63; RESP 14; O2SAT 95
[2021-07-05 00:31] LABS: Lipase 62 U/L (8-78); Magnesium 1.5 mg/dL (1.6-2.6)
[2021-07-05 00:32] LABS: Ethanol < 10 mg/dL
[2021-07-05] MEDS: Pantoprazole Sodium 40 MG/10 ML VIAL IVPUSH (00:37)
[2021-07-05] MEDS: ondansetron HCL 4 MG/2 ML VIAL IVPUSH (00:37)
[2021-07-05 00:38] LABS: Troponin-I High Sensitivity < 3.5 ng/L (<3.5-35.0)
[2021-07-05] MEDS: LORazepam 2 MG/ML VIAL IVPUSH (00:38)
[2021-07-05 00:43] LABS: Ammonia 25 umol/L (13-55)
[2021-07-05] MEDS: Magnesium Sulfate/H2O 2 GM/50 ML PIGGYBACK IV (01:09)
[2021-07-05] MEDS: 0.9 % Sodium Chloride 1,000 ML 999 ML IVCONT ×2 (01:11→02:07)
[2021-07-05 02:05] VITALS: BP 122/81; PULSE 64; RESP 14; O2SAT 95
[2021-07-05] MEDS: LORazepam 1 MG TABLET 2 MG PO (02:55)
== END 2021-07-05 02:00 | disposition home or self-care (01) ==
PROVIDERS: Nurse Practitioner Family; Emergency Provider Emergency Medicine Emergency Medical Services
DX: K29.20 Alcoholic gastritis without bleeding (principal); K70.10 Alcoholic hepatitis without ascites; F10.239 Alcohol dependence with withdrawal, unspecified; Y90.0 Blood alcohol level of less than 20 mg/100 ml; J45.909 Unspecified asthma, uncomplicated; Z20.822 Contact with and (suspected) exposure to COVID-19
CPT/HCPCS: 36415; 71045; 74176; 80053; 82077; 82140; 83690; 83735; 84484; 85025; 87502; 87635; 93005; 96365; 96366; 96375; 99285; 99291; J2060; J2405; J3475

== ENCOUNTER 2021-10-15 09:01 | Outpatient (REF) | payer OTHER, SELFPAY ==
--- NOTE | ~2021-10-15 | XR_ITS ---
EXAMINATION: XR LUMBOSACRAL SPINE CLINICAL INFORMATION: M54.30 - Sciatica, unspecified side COMPARISON: CT abdomen and pelvis 07/05/2021. TECHNIQUE: Three views of the lumbosacral spine. FINDINGS: Normal lumbar segmentation with 5 nonrib-bearing lumbar vertebrae of normal height and normal lumbar lordosis. No lumbar vertebral compression, spondylolisthesis, destructive process. There are mild degenerative disc changes again noted L5-S1 with disc narrowing and mild vertebral spurring. The there are bridging osteophytes involving the superior anterior SI joint similar to the CT study. No erosive changes. Remainder of the sacrum are unremarkable. XR/XR lumbar spine 2-3V IMPRESSION: -Degenerative disc changes L5-S1. -Spurring bilaterally anterior superior SI joints.
[2021-10-15 11:06] LABS: MANUAL DIFF FLAG NO
[2021-10-15 11:13] LABS: Basophils Absolute Auto 0.1 X10*3/uL (0.0-0.2); Basophils Percent Auto 1.3 % (0-2); Eosinophils Absolute Auto 0.2 X10*3/uL (0.0-0.4); Eosinophils Percent Auto 2.8 % (0-4); Hematocrit 38.8 % (42.0-52.0); Hemoglobin 13.5 g/dl (14.0-18.0); Imm Gran Abs Auto 0.03 X10*3/uL (0.00-0.03); Imm Gran Pct Auto 0.6 % (0.0-0.4); Lymphocytes Absolute Auto 2.5 X10*3/uL (1.2-4.9); Lymphocytes Percent Auto 45.8 % (20-40); Mean Corpuscular HGB Conc 34.8 g/dl (31.0-36.0); Mean Corpuscular Hemoglobin 34.3 pg (27.0-33.0); Mean Corpuscular Volume 98.5 fL (80.0-98.0); Mean Platelet Volume 10.6 fL (9.4-12.4); Monocytes Absolute Auto 0.6 X10*3/uL (0.1-1.2); Monocytes Percent Auto 11.3 % (2-11); Neutrophils Absolute Auto 2.1 x10*3/uL (2.0-8.3); Neutrophils Percent Auto 38.2 % (45-73); Platelet Count 220 X10*3/uL (160-400); Red Blood Count 3.94 X10*6/uL (4.60-5.80); Red Cell Distribution Width 13.5 % (11.0-16.0); White Blood Count 5.4 X10*3/uL (4.8-10.8)
[2021-10-15 11:28] LABS: Alanine Aminotransferase 188 U/L (0-40); Alkaline Phosphatase 117 U/L (39-117); Anion Gap 16 (12-20); Aspartate Amino Transferase 217 U/L (5-37); Blood Urea Nitrogen 7 mg/dL (9-16); Calcium 8.7 mg/dL (8.4-10.2); Carbon Dioxide 25 mmol/L (22-29); Chloride 100 mmol/L (96-108); Cholesterol 195 mg/dL; Estimated Glomerular Filt Rate > 60; Glucose Fasting 86 mg/dL (60-99); HDL Cholesterol 41 mg/dL; LDL Cholesterol Calculated 106 mg/dl; Lipase 72 U/L (8-78); Potassium 3.5 mmol/L (3.3-5.1); Sodium 137 mmol/L (135-145); Total Protein 6.9 g/dL (6.5-8.0); Triglycerides 244 mg/dL
[2021-10-15 11:47] LABS: Prostate Specific Antigen Scr 0.14 ng/mL (<0.05-4.0); TSH reflex Free T4 0.94 uIU/mL (0.32-4.0)
== END 2021-10-15 09:02 | disposition home or self-care (01) ==
LOC: HO.HMGCX 09:01
PROVIDERS: PCP Nurse Practitioner Family; Visit Provider Nurse Practitioner Family
DX: Z12.5 Encounter for screening for malignant neoplasm of prostate (principal); K85.90 Acute pancreatitis without necrosis or infection, unspecified; M54.30 Sciatica, unspecified side
CPT/HCPCS: 36415; 72100; 80053; 80061; 83690; 84153; 84443; 85025

== ENCOUNTER 2021-10-22 08:56 | Outpatient (REF) | payer OTHER, SELFPAY ==
[2021-10-22 11:29] LABS: Appearance Urine CLOUDY; Color Urine YELLOW; Glucose Urine UA NEG (NEG); Leukocyte Esterase Urine NEG (NEG); Nitrite Urine NEG (NEG); Specific Gravity - Urine 1.025 (1.005-1.025); Urine Blood NEG (NEG); Urine Ketones 5 MG/DL (NEG); Urine Protein NEG (NEG-TRACE)
== END 2021-10-22 08:57 | disposition home or self-care (01) ==
LOC: HO.HMGCLNP 08:56
PROVIDERS: PCP Nurse Practitioner Family; Visit Provider Nurse Practitioner Family
DX: K85.90 Acute pancreatitis without necrosis or infection, unspecified (principal)
CPT/HCPCS: 81003

== ENCOUNTER 2022-04-05 07:36 | Emergency (ER) | payer OTHER, SELFPAY ==
--- NOTE | 2022-04-05 | ECG_ITS ---
Test Reason : CHEST PRESSURE Blood Pressure : / mmHG Vent. Rate : 079 BPM Atrial Rate : 079 BPM P-R Int : 128 ms QRS Dur : 092 ms QT Int : 424 ms P-R-T Axes : 049 025 079 degrees QTc Int : 486 ms Normal sinus rhythm Nonspecific T wave abnormality Prolonged QT Abnormal ECG When compared with ECG of 05-JUL-2021 00:15, T wave inversion less evident in Anterior leads QT has shortened Referred By: Generic ED Physician Electronically Signed By:ISH VELAZCO MD
--- NOTE | ~2022-04-05 | XR_ITS ---
EXAMINATION: XR CHEST CLINICAL INFORMATION: Swelling COMPARISON: Chest radiograph from 07/05/2021 TECHNIQUE: 2 views of the chest were obtained. FINDINGS: No focal consolidation. No pneumothorax. Trachea is midline. Cardiomediastinal silhouette is not enlarged. No large pleural effusion. Degenerative changes of the thoracolumbar spine. Soft tissues are unremarkable. XR/XR chest 2V IMPRESSION: No acute cardiopulmonary process.
--- NOTE | ~2022-04-05 | US_ITS ---
EXAMINATION: US VENOUS ULTRASOUND WITH DOPPLER LOWER EXTREMITY, BILATERAL CLINICAL INFORMATION: Bilateral lower extremity edema COMPARISON: None TECHNIQUE: Ultrasound of the deep veins is performed from the hip to the calf with compression sonography and color and pulse Doppler assessment. Spectral analysis with color-flow imaging is performed. FINDINGS: RIGHT: There is normal venous compression and respiratory variation and augmented flow. The visualized common femoral vein, superficial femoral vein, profunda femoral vein, popliteal vein, and the trifurcation region shows no evidence of deep venous thrombosis. There is no significant popliteal fossa cyst. LEFT: There is normal venous compression and respiratory variation and augmented flow. The visualized common femoral vein, superficial femoral vein, profunda femoral vein, popliteal vein, and the trifurcation region shows no evidence of deep venous thrombosis. There is no significant popliteal fossa cyst. If the patient's symptoms persist, followup ultrasound in 5 days 7 days might be of value to exclude proximal propagation from a non-visualized calf vein. US/US venous duplex LE BI IMPRESSION: No DVT demonstrated in either lower extremity.
[2022-04-05 08:06] VITALS: BP 112/80; PULSE 86; RESP 18; TEMP 36.6; O2SAT 97; BMI 25.1
[2022-04-05 08:33] LABS: MANUAL DIFF FLAG NO
[2022-04-05 08:39] LABS: Basophils Absolute Auto 0.1 X10*3/uL (0.0-0.2); Basophils Percent Auto 2.5 % (0-2); Eosinophils Absolute Auto 0.2 X10*3/uL (0.0-0.4); Eosinophils Percent Auto 3.7 % (0-4); Hematocrit 42.3 % (42.0-52.0); Hemoglobin 14.9 g/dl (14.0-18.0); Imm Gran Abs Auto 0.02 X10*3/uL (0.00-0.03); Imm Gran Pct Auto 0.4 % (0.0-0.4); Lymphocytes Absolute Auto 2.5 X10*3/uL (1.2-4.9); Lymphocytes Percent Auto 43.7 % (20-40); Mean Corpuscular HGB Conc 35.2 g/dl (31.0-36.0); Mean Corpuscular Hemoglobin 34.7 pg (27.0-33.0); Mean Corpuscular Volume 98.4 fL (80.0-98.0); Mean Platelet Volume 10.6 fL (9.4-12.4); Monocytes Absolute Auto 0.4 X10*3/uL (0.1-1.2); Monocytes Percent Auto 6.6 % (2-11); Neutrophils Absolute Auto 2.4 x10*3/uL (2.0-8.3); Neutrophils Percent Auto 43.1 % (45-73); Platelet Count 159 X10*3/uL (160-400); Red Cell Distribution Width 13.9 % (11.0-16.0); White Blood Count 5.6 X10*3/uL (4.8-10.8)
[2022-04-05 08:58] LABS: Alanine Aminotransferase 49 U/L (0-40); Albumin Level 4.3 g/dL (3.5-5.0); Alkaline Phosphatase 104 U/L (39-117); Anion Gap 24 (12-20); Aspartate Amino Transferase 129 U/L (5-37); Bilirubin Total 1.7 mg/dL (0.0-1.0); Blood Urea Nitrogen 8 mg/dL (9-16); Calcium 9.1 mg/dL (8.4-10.2); Carbon Dioxide 20 mmol/L (22-29); Chloride 101 mmol/L (96-108); Creatinine Clr Calc Pharmacy 135.7; Estimated Glomerular Filt Rate > 60; Glucose Random 80 mg/dL (60-115); Potassium 3.8 mmol/L (3.3-5.1); Sodium 141 mmol/L (135-145); Total Protein 7.6 g/dL (6.5-8.0)
--- NOTE | 2022-04-05 09:19 | ED_ITS ---
HPI - General Adult General Chief complaint: Extremity Problem Stated complaint: both feet numb swollen Time Seen by Provider: 04/05/22 09:17 Source: patient Mode of arrival: ambulatory Limitations: no limitations History of Present Illness HPI narrative: Patient is a 52 year old assigned male at with a history of cigarette smoking presenting to the emergency department today with bilateral lower leg swelling. Patient states that he has been traveling a lot lately and has noticed that both of his lower legs are more swollen than usual. Patient denies any dizziness, lightheadedness, abdominal pain, nausea, vomiting, fever, chills, blurry vision, double vision, loss of vision, chest pain, difficulty breathing, shortness of breath, back pain, night sweats, pain with urination, increased urinary frequency, increased urinary urgency, blood in his urine or stool, syncope or a near syncopal episode, recent trauma or falls, bowel incontinence, bladder incontinence, bowel retention, bladder retention, or any other complaints at this time. Onset (ago): day(s) Location: left, right and lower extremity Radiation: non-radiation Severity: mild Severity scale (1-10): 2 Relieving factors: none Exacerbating factors: none Associated symptoms: denies other symptoms Treatments prior to arrival: none Related Data Previous Rx's Medication Instructions Recorded albuterol sulfate 90 mcg/actuation 2 puff inhalation Q6H PRN 11/20/20 aerosol inhaler (ProAir HFA) shortness of breath or wheezing 30 days #8.5 grams doxycycline hyclate 100 mg tablet 100 mg PO Q12H 10 days #20 tabs 01/29/21 ondansetron 4 mg disintegrating 4 mg PO Q6-8H PRN nausea and 01/29/21 tablet vomiting #14 tabs lidocaine 5 % topical patch 1 patch topical DAILY pain #15 ea 05/13/21 (Lidoderm) acetaminophen 500 mg tablet 1,000 mg PO QID PRN fever or pain 09/08/21 (Tylenol Extra Strength) #14 tabs oxycodone 5 mg tablet 5 mg PO DAILY PRN pain 7 days #7 11/12/21 tabs albuterol sulfate 90 mcg/actuation 1 inh inhalation QID PRN shortness 03/25/22 aerosol inhaler of breath or wheezing 30 days #8.5 grams cyclobenzaprine 10 mg tablet 10 mg PO TID PRN pain, muscle 03/25/22 spasm 20 days #60 tabs ibuprofen 800 mg tablet 800 mg PO Q8H PRN pain 20 days #60 03/25/22 tabs omeprazole 20 mg capsule,delayed 20 mg PO DAILY 90 days #90 caps 03/25/22 release Allergies Allergy/AdvReac Type Severity Reaction Status Date / Time No Known Allergies Allergy Verified 09/07/21 11:36 Review of Systems Constitutional: Constitutional: Reports no additional constitutional complaints, Denies chills, Denies fever(s) and Denies night sweats Eyes: Eyes: Reports no additional eye complaints, Denies blurry vision, Denies change in vision, Denies diplopia, Denies eye discharge, Denies loss of vision and Denies eye pain ENT: Denies dizziness Cardiovascular: Cardiovascular: Reports no additional cardiovascular complaints, Denies chest pain, Denies lightheadedness, Denies Loss of Consciousness and Denies dyspnea Respiratory: Respiratory: Reports no additional respiratory complaints and Denies dyspnea Gastrointestinal: Gastrointestinal: Reports no additional gastrointestinal complaints, Denies abdominal pain, Denies melena, Denies hematochezia, Denies change in bowel habits and Denies change in stool character Genitourinary: Genitourinary: Reports no additional male genitourinary complaints, Denies hematuria, Denies oliguria, Denies difficulty urinating, Denies dysuria, Denies urinary frequency, Denies urinary hesitancy, Denies urinary incontinence and Denies urinary urgency Musculoskeletal: Musculoskeletal: Reports no additional musculoskeletal complaints, Denies numbness and Denies tingling Comments: bilateral lower leg swelling Neurologic: Denies dizziness, Denies loss of vision, Denies numbness and Denies tingling Psychiatric: Psychiatric: Reports no additional psychiatric complaints Endocrine: Endocrine: Reports no additional endocrine complaints Hematologic/Lymphatic: Hematologic/Lymphatic: Reports no additional hematologic/lymphatic complaints Allergic/Immunologic: Allergic/Immunologic: Reports no additional allergic /immunologic complaints PMFSH Past Medical History Attestation statement: The following information was validated with the patient. Source: old records reviewed and nursing notes reviewed Medical History Asthma Autoimmune disease Depression Lyme disease Pancreatitis Surgical History No pertinent past surgical history Family History Family History Father Heart attack Mother No problems noted. Sister No problems noted. Daughter No problems noted. Social History Social History Household Members: Spouse and Friend(s) Housing: House Do you presently have visiting nurse or other home services: No Alcohol intake: current Alcohol intake frequency: holidays/special occasions only Alcohol type: hard liquor Patient Tobacco Use Status: Tobacco use Unknown Tobacco use type: Cigarette Cigarette Packs Per Day: 1 Cigarettes Per Day: 20.0 Years Smoked: 39 Smoked in Last 30 Days: Yes Use of substances other than those prescribed or required for medical reasons: No Substance Use Type: Marijuana Advance Directives: Yes Advance Directives Information Provided: No Advance Directives on File: No Current occupational status: unemployed Physical Exam ED Vital Signs: Vital Signs - 24 hr 04/05/22 08:06 Temperature 97.8 F Pulse Rate 86 Respiratory Rate 18 Blood Pressure 112/80 Pulse Oximetry 97 Oxygen Delivery Method Room Air BMI result Body Mass Index 25.1 Const General: cooperative, no acute distress, alert and awake Nutritional Appearance: well nourished Orientation/consciousness: patient oriented x3 Limitations: no limitations HENMT Head: Yes normal to inspection and Yes atraumatic Ears: hearing grossly normal bilaterally and external ears normal General nose exam: Normal external nose present, no nasal discharge noted and no epistaxis Face and sinus: Yes normal facial exam, No abrasion and No laceration Mouth: Normal oral and palatal mucosa present, no drooling and no muffled voice Eyes General: appearance normal, both eyes and all related structures Periorbital: periorbital findings normal Eyelids: Yes eyelids normal Conjunctivae: conjunctivae normal Pupils: Equal, round and reactive pupils present EOM: EOMs intact bilaterally Neck Neck: Yes normal visual inspection, Yes full ROM and Yes no lymphadenopathy Chest Chest palpation & inspection: normal inspection of the chest Resp Effort & Inspection: normal respiratory effort and able to speak in complete sentences Auscultation: clear to auscultation bilaterally Cardio Rate: regular rate Rhythm: regular rhythm GI Inspection: Yes normal to inspection Neuro General: patient oriented x3 and moves all extremities Cranial nerves: Yes Equal, round and reactive pupils present Cognition (Neuro): normal cognition Motor exam (neuro): 5/5 motor strength present throughout Sensory Exam: Normal double simultaneous stimulation for sensation Coordination: [id number] test normal Extrem General: Yes full ROM, Yes capillary refill normal and Yes edema (bilateral) Psych Appearance: grossly normal Mental Status: mental status grossly normal Affect: normal affect Attitude: cooperative Thought process: Normal thought process present Thought content: Normal thought content present Insight: Good insight present (Psych) Medical Decision Making Medical Decision Making [facility] Narrative: Patient is a 52 year old assigned male at with a history of cigarette smoking presenting to the emergency department today with bilateral lower leg swelling. Patient's physical exam showed mild bilateral lower leg swelling but was otherwise unremarkable. Patient's blood work was unremarkable. Patient's bilateral lower leg US showed no acute process. Patient's chest XR showed no acute process. I explained my physical exam findings as well as all test results to the patient. I answered all questions asked by the patient. I stressed the i mportance of the patient taking his medication as prescribed. I stressed the importance of the patient following up with his primary care provider. I stressed the importance of the patient returning to the emergency department immediately if his symptoms were to worsen or if he were to develop any d izziness, shortness of breath, difficulty breathing, chest pain, blurry vision, loss of vision, nausea, vomiting, abdominal pain, fever, chills, back pain, or any other complaints. Patient verbalized agreement and understanding with this treatment plan and discharge. Differential Diagnosis Differential Diagnoses: The differential diagnosis associated with the presentation includes Dependent edema Lab Data [facility] Lab Attestation statement: I reviewed the patient's lab results. 04/05/22 08:26 04/05/22 08:26 Labs: Lab Results 04/05/22 04/05/22 04/05/22 Range/Units 08:26 08:26 10:02 WBC 5.6 (4.8-10.8) X10*3/uL RBC 4.30 L (4.60-5.80) X10*6/uL Hgb 14.9 (14.0-18.0) g/dl Hct 42.3 (42.0-52.0) % MCV 98.4 H (80.0-98.0) fL MCH 34.7 H (27.0-33.0) pg MCHC 35.2 (31.0-36.0) g/dl RDW 13.9 (11.0-16.0) % Plt Count 159 L D (160-400) X10*3/uL MPV 10.6 (9.4-12.4) fL Immature Gran % (Auto) 0.4 (0.0-0.4) % Neut % (Auto) 43.1 L (45-73) % Lymph % (Auto) 43.7 H (20-40) % [place] % (Auto) 6.6 (2-11) % Eos % (Auto) 3.7 (0-4) % Baso % (Auto) 2.5 H (0-2) % Lymph # (Auto) 2.5 (1.2-4.9) X10*3/uL [place] # (Auto) 0.4 (0.1-1.2) X10*3/uL Eos # (Auto) 0.2 (0.0-0.4) X10*3/uL Baso # (Auto) 0.1 (0.0-0.2) X10*3/uL Abs Immat Gran (auto) 0.02 (0.00-0.03) X10*3/uL Absolute Neuts (auto) 2.4 (2.0-8.3) x10*3/uL Absolute Nucleated RBC 0.000 (0.0-0.012) X10*3/uL Nucleated RBC % (auto) 0.0 (0.0-0.2) /100WBC Sodium 141 (135-145) mmol/L Potassium 3.8 (3.3-5.1) mmol/L Chloride 101 (96-108) mmol/L Carbon Dioxide 20 L (22-29) mmol/L Anion Gap 24 H (12-20) BUN 8 L (9-16) mg/dL Creatinine 0.65 (0.5-1.4) mg/dL Estim Creat Clear Calc 135.7 Estimated GFR > 60 Random Glucose 80 (60-115) mg/dL Calcium 9.1 (8.4-10.2) mg/dL Total Bilirubin 1.7 H (0.0-1.0) mg/dL AST 129 H (5-37) U/L ALT 49 H (0-40) U/L Alkaline Phosphatase 104 (39-117) U/L Troponin I High Sens < 3.5 (<3.5-35.0) ng/L B-Natriuretic Peptide (<100) pg/mL Total Protein 7.6 (6.5-8.0) g/dL Albumin 4.3 (3.5-5.0) g/dL 04/05/22 Range/Units 10:02 WBC (4.8-10.8) X10*3/uL RBC (4.60-5.80) X10*6/uL Hgb (14.0-18.0) g/dl Hct (42.0-52.0) % MCV (80.0-98.0) fL MCH (27.0-33.0) pg MCHC (31.0-36.0) g/dl RDW (11.0-16.0) % Plt Count (160-400) X10*3/uL MPV (9.4-12.4) fL Immature Gran % (Auto) (0.0-0.4) % Neut % (Auto) (45-73) % Lymph % (Auto) (20-40) % [place] % (Auto) (2-11) % Eos % (Auto) (0-4) % Baso % (Auto) (0-2) % Lymph # (Auto) (1.2-4.9) X10*3/uL [place] # (Auto) (0.1-1.2) X10*3/uL Eos # (Auto) (0.0-0.4) X10*3/uL Baso # (Auto) (0.0-0.2) X10*3/uL Abs Immat Gran (auto) (0.00-0.03) X10*3/uL Absolute Neuts (auto) (2.0-8.3) x10*3/uL Absolute Nucleated RBC (0.0-0.012) X10*3/uL Nucleated RBC % (auto) (0.0-0.2) /100WBC Sodium (135-145) mmol/L Potassium (3.3-5.1) mmol/L Chloride (96-108) mmol/L Carbon Dioxide (22-29) mmol/L Anion Gap (12-20) BUN (9-16) mg/dL Creatinine (0.5-1.4) mg/dL Estim Creat Clear Calc Estimated GFR Random Glucose (60-115) mg/dL Calcium (8.4-10.2) mg/dL Total Bilirubin (0.0-1.0) mg/dL AST (5-37) U/L ALT (0-40) U/L Alkaline Phosphatase (39-117) U/L Troponin I High Sens (<3.5-35.0) ng/L B-Natriuretic Peptide 29 (<100) pg/mL Total Protein (6.5-8.0) g/dL Albumin (3.5-5.0) g/dL Radiology Impression Discussion of test interpretation with radiology: I have reviewed the radiologist's reading. Radiologist Impression: My interpretation is in agreement with the radiologist's impression of this imaging study. EXAMINATION:? US VENOUS ULTRASOUND WITH DOPPLER LOWER EXTREMITY, BILATERAL CLINICAL INFORMATION:? Bilateral lower extremity edema COMPARISON:? None TECHNIQUE: Ultrasound of the deep veins is performed from the hip to the calf with compression sonography and color and pulse Doppler assessment. Spectral analysis with color-flow imaging is performed. FINDINGS: RIGHT: There is normal venous compression and respiratory variation and augmented flow. The visualized common femoral vein, superficial femoral vein, profunda femoral vein, popliteal vein, and the trifurcation region shows no evidence of deep venous thrombosis. ? There is no significant popliteal fossa cyst. LEFT: There is normal venous compression and respiratory variation and augmented flow. The visualized common femoral vein, superficial femoral vein, profunda femoral vein, popliteal vein, and the trifurcation region shows no evidence of deep venous thrombosis. ? There is no significant popliteal fossa cyst. If the patient's symptoms persist, followup ultrasound in 5 days 7 days might be of value to exclude proximal propagation from a non-visualized calf vein. US/US venous duplex LE BI IMPRESSION: No DVT demonstrated in either lower extremity. Dictated By: De Lance MD Signed By: Electronically signed by De Lance MD 04/05/22 1133 EXAMINATION: XR CHEST CLINICAL INFORMATION: Swelling COMPARISON: Chest radiograph from 07/05/2021 TECHNIQUE: 2 views of the chest were obtained. FINDINGS: No focal consolidation. No pneumothorax. Trachea is midline. Cardiomediastinal silhouette is not enlarged. No large pleural effusion. Degenerative changes of the thoracolumbar spine. Soft tissues are unremarkable. XR/XR chest 2V IMPRESSION: No acute cardiopulmonary process. Dictated By: Rachael Pettit MD Signed By: Electronically signed by Rachael Pettit MD 04/05/22 0937 Discharge Plan Discharge Clinical Impression: Edema Patient Disposition: Home, Self-Care Instructions: Leg Edema (ED), Edema (ED) Additional Instructions: Follow up with your primary care provider. Return to the emergency department immediately if your symptoms worsen or if you develop any dizziness, shortness of breath, difficulty breathing, chest pain, blurry vision, loss of vision, nausea, vomiting, abdominal pain, fever, chills, back pain, or any other complaints. Prescriptions: No Action acetaminophen [Tylenol Extra Strength] 500 mg tablet 1,000 mg PO QID PRN (Reason: fever or pain) Qty: 14 0RF oxycodone 5 mg tablet 5 mg PO DAILY PRN (Reason: pain) 7 Days Qty: 7 0RF cyclobenzaprine 10 mg tablet 10 mg PO TID PRN (Reason: pain, muscle spasm) 20 Days Qty: 60 0RF ibuprofen 800 mg tablet 800 mg PO Q8H PRN (Reason: pain) 20 Days Qty: 60 0RF Rx Instructions: do not take concurrently with prednisone omeprazole 20 mg capsule,delayed release(DR/EC) 20 mg PO DAILY 90 Days Qty: 90 0RF albuterol sulfate 90 mcg/actuation HFA aerosol inhaler 1 inh inhalation QID PRN (Reason: shortness of breath or wheezing) 30 Days Qty: 8.5 3RF ondansetron 4 mg tablet,disintegrating 4 mg PO Q6-8H PRN (Reason: nausea and vomiting) Qty: 14 0RF doxycycline hyclate 100 mg tablet 100 mg PO Q12H 10 Days Qty: 20 0RF lidocaine [Lidoderm] 5 % adhesive patch,medicated 1 patch topical DAILY Qty: 15 0RF Rx Instructions: leave on most painful area for up to 12 hrs. May be substituted albuterol sulfate [ProAir HFA] 90 mcg/actuation HFA aerosol inhaler 2 puff inhalation Q6H PRN (Reason: shortness of breath or wheezing) 30 Days Qty: 8.5 4RF Referrals: Gulshan Chanel, [employer] [Primary Care Provider] - Interventions: ED Discharge Assessment Last Done: 04/05/22 12:00 Discharge Date/Time: 04/05/22 12:01 Print Language: Cambodian
[2022-04-05 10:29] LABS: B Type Natriuretic Peptide 29 pg/mL (<100)
[2022-04-05 10:34] LABS: Troponin-I High Sensitivity < 3.5 ng/L (<3.5-35.0)
== END 2022-04-05 12:01 | disposition home or self-care (01) ==
PROVIDERS: Nurse Practitioner Family; Emergency Provider Emergency Medicine; PCP Nurse Practitioner Family
DX: R60.0 Localized edema (principal); F17.210 Nicotine dependence, cigarettes, uncomplicated
CPT/HCPCS: 36415; 71046; 80053; 83880; 84484; 85025; 93005; 93970; 99283; 99284

== ENCOUNTER 2022-06-17 12:17 | Outpatient (REF) | payer OTHER, SELFPAY ==
--- NOTE | ~2022-06-17 | XR_ITS ---
EXAMINATION: XR LUMBOSACRAL SPINE CLINICAL INFORMATION: Intervertebral disc degeneration lumbar region COMPARISON: Previous lumbar spine x-ray September 2021 TECHNIQUE: Three views of the lumbosacral spine. FINDINGS: Bone alignment is normal. No fracture or dislocation. Degenerative disc disease at L5-S1. Lower lumbar spine facet arthritis. XR/XR lumbar spine 2-3V IMPRESSION: Degenerative disc disease at L5-S1 and lower lumbar spine facet arthritis.
== END 2022-06-17 12:18 | disposition home or self-care (01) ==
LOC: HO.HMGCX 12:17
PROVIDERS: PCP Nurse Practitioner Family; Visit Provider Nurse Practitioner Family
DX: M51.36 Other intervertebral disc degeneration, lumbar region (principal)
CPT/HCPCS: 72100

== ENCOUNTER 2022-06-19 10:37 | Outpatient (REF) | payer OTHER, SELFPAY ==
[2022-06-19 12:55] LABS: Alanine Aminotransferase 44 U/L (0-40); Albumin Level 3.6 g/dL (3.5-5.0); Alkaline Phosphatase 180 U/L (39-117); Amylase 48 U/L (28-100); Anion Gap 15 (12-20); Aspartate Amino Transferase 79 U/L (5-37); Bilirubin Direct 0.4 mg/dL (0.0-0.5); Blood Urea Nitrogen 5 mg/dL (9-16); Calcium 8.6 mg/dL (8.4-10.2); Carbon Dioxide 26 mmol/L (22-29); Chloride 104 mmol/L (96-108); Estimated Glomerular Filt Rate > 60; Glucose Random 96 mg/dL (60-115); Lipase 45 U/L (8-78); Potassium 3.6 mmol/L (3.3-5.1); Sodium 141 mmol/L (135-145); Total Protein 6.6 g/dL (6.5-8.0)
== END 2022-06-19 10:38 | disposition home or self-care (01) ==
LOC: HO.HMGCLDS 10:37
PROVIDERS: PCP Nurse Practitioner Family; Visit Provider Physician Assistant Medical
DX: R19.7 Diarrhea, unspecified (principal); R10.9 Unspecified abdominal pain; R60.9 Edema, unspecified
CPT/HCPCS: 36415; 80053; 82150; 82248; 83690

== ENCOUNTER 2022-06-25 10:14 | Outpatient (REF) | payer OTHER, SELFPAY ==
[2022-06-25 11:30] LABS: MANUAL DIFF FLAG NO
[2022-06-25 11:57] LABS: Basophils Absolute Auto 0.1 X10*3/uL (0.0-0.2); Basophils Percent Auto 1.3 % (0-2); Eosinophils Absolute Auto 0.3 X10*3/uL (0.0-0.4); Eosinophils Percent Auto 3.1 % (0-4); Hematocrit 40.8 % (42.0-52.0); Hemoglobin 14.1 g/dl (14.0-18.0); Imm Gran Abs Auto 0.03 X10*3/uL (0.00-0.03); Imm Gran Pct Auto 0.3 % (0.0-0.4); Lymphocytes Absolute Auto 3.7 X10*3/uL (1.2-4.9); Lymphocytes Percent Auto 38.6 % (20-40); Mean Corpuscular HGB Conc 34.6 g/dl (31.0-36.0); Mean Corpuscular Hemoglobin 34.2 pg (27.0-33.0); Mean Platelet Volume 9.6 fL (9.4-12.4); Monocytes Absolute Auto 0.4 X10*3/uL (0.1-1.2); Monocytes Percent Auto 4.1 % (2-11); Neutrophils Percent Auto 52.6 % (45-73); Platelet Count 241 X10*3/uL (160-400); Red Blood Count 4.12 X10*6/uL (4.60-5.80); White Blood Count 9.5 X10*3/uL (4.8-10.8)
[2022-06-25 12:21] LABS: B Type Natriuretic Peptide 24 pg/mL (<100)
[2022-06-25 12:23] LABS: Alanine Aminotransferase 49 U/L (0-40); Albumin Level 3.9 g/dL (3.5-5.0); Alkaline Phosphatase 230 U/L (39-117); Anion Gap 16 (12-20); Aspartate Amino Transferase 152 U/L (5-37); Bilirubin Total 1.5 mg/dL (0.0-1.0); Blood Urea Nitrogen 4 mg/dL (9-16); Calcium 8.5 mg/dL (8.4-10.2); Carbon Dioxide 25 mmol/L (22-29); Chloride 106 mmol/L (96-108); Estimated Glomerular Filt Rate > 60; Glucose Random 99 mg/dL (60-115); Sodium 143 mmol/L (135-145); Total Protein 7.2 g/dL (6.5-8.0)
[2022-06-25 12:42] LABS: Prostate Specific Antigen Scr 0.16 ng/mL (<0.05-4.0); TSH reflex Free T4 2.26 uIU/mL (0.32-4.0)
[2022-06-25 14:11] LABS: Appearance Urine Clear; Color Urine Dark Yellow; Glucose Urine UA Negative (Negative); Leukocyte Esterase Urine Trace (Negative); Nitrite Urine Negative (Negative); PH 5.5 (5.0-9.0); UMIC TRIGGER UACC YES; Urine Blood Negative (Negative); Urine Ketones Trace mg/dL (Negative); Urine Protein Trace mg/dL (Neg-Trace)
[2022-06-25 14:12] LABS: Bacteria Urine None Seen (None Seen); Hyaline Casts Urine 0-2 /LPF (0-2); RBC Urine 0-2 /HPF (0-2); Squamous Epithelial Cell Urine 0-2 /HPF (0-2); WBC Urine 0-5 /HPF (0-5)
== END 2022-06-25 10:15 | disposition home or self-care (01) ==
LOC: HO.HMGCLDS 10:14
PROVIDERS: PCP Nurse Practitioner Family; Visit Provider Nurse Practitioner Family
DX: Z12.5 Encounter for screening for malignant neoplasm of prostate (principal); M79.89 Other specified soft tissue disorders
CPT/HCPCS: 36415; 80053; 81001; 81003; 83880; 84153; 84443; 85025

== ENCOUNTER → 2022-07-09 10:53 | Outpatient (REF) | payer OTHER, SELFPAY ==
--- NOTE | 2022-07-09 10:56 | CA_ITS ---
Transthoracic Echocardiogram Patient (Last, First, Middle): Tho Miller, Gender: Male Date of : 1970 Age: 52 Procedure Date: 07/09/2022 Procedure Type: Transthoracic Echocardiogram Location: OP Height: 177.8 cm Weight: 83.92 kg BSA: 2.02 m2 Heart Rate: bpm BP: 120 / 80 mmHg Documentation Consultant: TO Referring MD: Gulshan Chanel [facility]- Symptoms: M79.89 - Other specified soft tissue disorders Study Quality: Fair ECG Rhythm: Sinus Conclusions: - The left ventricular systolic function is low normal. The visually estimated ejection fraction is between 50-55%. - Possible basal inferior hypokinesis. - No obvious valvular pathology seen on this study. Findings Left Ventricle Normal left ventricular cavity size. There is normal left ventricular wall thickness. The left ventricular systolic function is low normal. The visually estimated ejection fraction is between 50-55%. Diastolic function is normal for age. Possible basal inferior hypokinesis. Right Ventricle Normal right ventricular cavity size and systolic function. Atria Both atria are normal in size. Aortic Valve There is a normal trileaflet aortic valve. There is no aortic valve stenosis. There is no aortic valve regurgitation. Mitral Valve The mitral valve appears normal. There is trace mitral valve regurgitation. There is no mitral valve stenosis. Pulmonic Valve The pulmonic valve is likely normal. Tricuspid Valve Normal tricuspid valve structure. There is trace tricuspid valve regurgitation. There is no evidence of pulmonary hypertension. Great Vessels The asc aorta is normal in size. Venous The inferior vena cava is normal in size and collapses greater than 50% with inspiration. Pericardium/Pleural There is no evidence of pericardial effusion. Prior Study Comparison No significant change compared to prior study dated: 06/07/2019. Recommendations, Care & Conclusions No obvious valvular pathology seen on this study. Measurements 2D Linear Measurements IVSd: 0.91 0.6-0.9/0.6-1.0 cm LVIDd: 5.27 3.9-5.3/4.2-5.9 cm LVIDd Index: 2.61 2.4-3.2/2.2-3.1 cm/m2 LVIDs: 3.84 2.0-3.6 cm LVPWd: 0.81 0.7-1.1 cm LA Diam: 2.90 2.7-3.8/3.0-4.0 cm LAIDs Index: 1.44 1.5-2.3 cm/m2 LV Mass: 203.13 67-162/88-224 g LV Mass Index: 100.56 43-95/49-115 g/m2 LVOT Diam: 2.40 3.0+(-)1.3 cm 2D Systolic Function EF 4C: 56.70 >55% EF 2C: 54.50 >55% EF BiP: 55.80 >55% Mitral Valve MV Pk E: 0.41 MV PK A: 0.48 MV Decel Time: 194.00 E/A: 0.90 E'Lateral: 9.25 E'Medial: 6.85 E/E' Med: 6.00 E/E' Lat: 4.40 PHT: 57.00 MVA PHT: 3.86 Decel Troup: 2.12 Aortic Valve AoV Pk Moncho: 0.93 AoV Mn Moncho: 0.72 AoV VTI: 0.16 AoV Pk Grad: 3.00 Aov Mn Grad: 2.00 BERNIE Cont.VTI: 3.38 LVOT LVOT Pk Moncho: 0.71 LVOT Mn Moncho: 0.47 LVOT VTI: 0.12 LVOT Pk Grad: 2.00 LVOT Mn Grad: 1.00 LVOT Diam: 2.40 LVOT Area: 4.52 Diastolic Function MV Pk E: 0.41 MV Pk A: 0.48 E/A: 0.90 E'Medial: 6.85 E/E' Med: 6.00 E' Laterial: 9.25 E/E' Lat: 4.40 Right Ventricle TAPSE (mm): 19.50 TVS' Moncho: 10.90 Tricuspid Valve TR Pk Moncho: 2.00 TR Pk Grad: 16.00 RA Press: 3.00 RVSP: 19.00 Great Vessels Aorta Sinus of Valsalva: 3.81 2.0-3.5 cm Ao Asc: 3.00 2.1-3.4 cm Updated in Other Vendor System with Status of Final Costa Ryan MD electronically signed on 07/11/2022 1:25:53 PM with status of Final
== END ==
LOC: HO.CARD 10:53
PROVIDERS: PCP Nurse Practitioner Family; Visit Provider Nurse Practitioner Family
DX: R60.9 Edema, unspecified (principal)
CPT/HCPCS: 93306; Q9957

== ENCOUNTER 2022-07-21 14:22 | Outpatient (REF) | payer OTHER, SELFPAY ==
--- NOTE | ~2022-07-21 | MR_ITS ---
EXAMINATION: MR LUMBAR SPINE WITHOUT CONTRAST CLINICAL INFORMATION: Other intervertebral disc degeneration, lumbar region. COMPARISON: None TECHNIQUE: MRI of the lumbar spine was obtained using routine sequences without contrast. FINDINGS: The lumbar vertebral bodies maintain normal heights and alignment. There is severe disc height loss at L5-S1. The distal spinal cord appears normal. The conus medullaris terminates normally at the T12-L1 level. There is moderate fatty atrophy of the posterior paraspinal musculature. The extra spinal soft tissues are otherwise unremarkable. SPINAL LEVELS: L1-L2: No posterior disc abnormality. No spinal canal or neural foraminal stenosis. L2-L3: No posterior disc abnormality. No spinal canal or neural foraminal stenosis. L3-L4: No posterior disc abnormality. No spinal canal or neural foraminal stenosis. L4-L5: Disc bulging with central protrusion with prominent annular fissuring. No spinal canal stenosis. Mild to moderate left and moderate right neural foraminal stenosis mild compression of the exiting right L4 nerve root. L5-S1: Disc bulging with mild facet arthropathy. No spinal canal stenosis. Mild to moderate right and moderate to severe left neural foraminal stenosis with compression of the exiting left L5 nerve root. MR/MR lumbar spine wo con IMPRESSION: 1. At L4-L5 there is mild to moderate left and moderate right neural foraminal stenosis with mild compression of the exiting right L4 nerve root. 2. At L5-S1 there is mild to moderate right and moderate to severe left neural foraminal stenosis with compression of the exiting left L5 nerve root.
--- NOTE | ~2022-07-21 | XR_ITS ---
EXAMINATION: XR PRE-MRI SCREENING ORBITS CLINICAL INFORMATION: Assess for metallic orbital foreign body prelumbar MRI. COMPARISON: None TECHNIQUE: The orbits are imaged in 4 views. FINDINGS: There is no visible metallic orbital foreign body. No orbital emphysema. No air-fluid levels paranasal sinuses. XR/XR pre mri screening IMPRESSION: No metallic orbital foreign body.
== END 2022-07-21 14:23 | disposition home or self-care (01) ==
LOC: HO.MRI 14:22
PROVIDERS: PCP Nurse Practitioner Family; Visit Provider Internal Medicine
DX: M51.36 Other intervertebral disc degeneration, lumbar region (principal); R53.1 Weakness
CPT/HCPCS: 72148

== ENCOUNTER → 2022-08-25 14:24 | Outpatient (BNVA) | payer OTHER, SELFPAY | PROVIDERS: PCP Nurse Practitioner Family; Visit Provider Neurological Surgery | DX: M47.27 Other spondylosis with radiculopathy, lumbosacral region (principal) | CPT/HCPCS: 99202 ==

== ENCOUNTER 2022-09-22 14:45 | Emergency (ER) | payer OTHER, SELFPAY ==
[2022-09-22 15:44] VITALS: BP 130/90; PULSE 93; O2SAT 95; BMI 25.0
[2022-09-22 15:45] VITALS: BP 97/65; PULSE 84; RESP 16; TEMP 36.4; O2SAT 94
[2022-09-22 15:57] LABS: MANUAL DIFF FLAG NO
--- NOTE | 2022-09-22 15:58 | PC.NURSE ---
Alert and oriented. Patient intoxicated stating that he is here for back pain and help to stop drinking. Patient states he normally drinks 8 nips a day but today he only has had 4. back pain is chronic and can not walk more than 50 feet without getting migraines because of the back pain. Denies sob or chest pain. has chronic pancreatitis. is homeless living in his car with his . hs not been eating or drinking enough fluids.
[2022-09-22 16:00] LABS: Basophils Absolute Auto 0.1 X10*3/uL (0.0-0.2); Eosinophils Absolute Auto 0.2 X10*3/uL (0.0-0.4); Eosinophils Percent Auto 1.7 % (0-4); Hematocrit 35.4 % (42.0-52.0); Hemoglobin 12.3 g/dl (14.0-18.0); Imm Gran Abs Auto 0.04 X10*3/uL (0.00-0.03); Imm Gran Pct Auto 0.4 % (0.0-0.4); Lymphocytes Absolute Auto 3.4 X10*3/uL (1.2-4.9); Mean Corpuscular HGB Conc 34.7 g/dl (31.0-36.0); Mean Corpuscular Volume 103.5 fL (80.0-98.0); Mean Platelet Volume 10.1 fL (9.4-12.4); Monocytes Absolute Auto 0.8 X10*3/uL (0.1-1.2); Monocytes Percent Auto 7.3 % (2-11); Neutrophils Absolute Auto 6.5 x10*3/uL (2.0-8.3); Neutrophils Percent Auto 58.6 % (45-73); Platelet Count 217 X10*3/uL (160-400); Red Blood Count 3.42 X10*6/uL (4.60-5.80); Red Cell Distribution Width 15.3 % (11.0-16.0); White Blood Count 11.1 X10*3/uL (4.8-10.8)
--- NOTE | 2022-09-22 16:06 | ED.ALCOHOL ---
HPI - Alcohol General Chief Complaint: ETOH/Substance Use Stated Complaint: ETOH, nausea,vomiting Time Seen by Provider: 09/22/22 14:51 Source: patient Mode of arrival: EMS Limitations: no limitations History of Present Illness HPI narrative: 52-year-old male with history of alcohol abuse presents requesting detox. Patient reportedly drinks 5 shots per day. Denies any drug abuse. Denies any suicidal homicidal ideation. He denies any hallucinations. Last drink was prior to arrival. Patient reports his alcohol abuse as severe. His symptoms are worsened by alcohol ingestion, they are improved by absence. He has been to detox approximately 18 months ago in [place]. Related Data Home Medications Medication Instructions Recorded Confirmed lidocaine 4 % topical patch 1 patch topical DAILY PRN Pain 09/22/22 09/22/22 Previous Rx's Medication Instructions Recorded omeprazole 20 mg capsule,delayed 20 mg PO DAILY 90 days #90 caps 07/07/22 release albuterol sulfate 90 mcg/actuation 2 inh inhalation QID PRN shortness 07/08/22 aerosol inhaler of breath or wheezing 30 days #8.5 grams ibuprofen 800 mg tablet 800 mg PO Q8H PRN pain 20 days #60 08/11/22 tabs Allergies Allergy/AdvReac Type Severity Reaction Status Date / Time No Known Allergies Allergy Verified 08/25/22 14:53 Review of Systems Review of Systems: CONSTITUTIONAL: Denies weight loss, fever and chills. HEENT: Denies changes in vision and hearing. RESPIRATORY: Denies SOB and cough. CV: Denies palpitations no CP. GI: Denies abdominal pain, nausea, vomiting and diarrhea. : Denies dysuria and urinary frequency. MSK: Denies myalgia and joint pain. SKIN: Denies rash and pruritus. NEUROLOGICAL: Denies headache and syncope. PSYCHIATRIC: Denies recent changes in mood. Denies anxiety and depression. All other ROS are negative unless in HPI PMFSH Past Medical History Medical History Alcohol abuse Asthma Autoimmune disease Depression Lyme disease Pancreatitis Surgical History No pertinent past surgical history Family History Family History Father Heart attack Mother No problems noted. Sister No problems noted. Daughter No problems noted. Social History Social History Household Members: Spouse and Friend(s) Housing: House Do you presently have visiting nurse or other home services: No Alcohol intake: current Alcohol intake frequency: 3 or more drinks per day Alcohol type: hard liquor Patient Tobacco Use Status: Tobacco use Unknown Tobacco use type: Cigarette Cigarette Packs Per Day: 1 Cigarettes Per Day: 20.0 Years Smoked: 39 Smoked in Last 30 Days: No e-Cigarette/Vaping Use: Never Used Use of substances other than those prescribed or required for medical reasons: No Substance Use Type: Marijuana Advance Directives: No Advance Directives Information Provided: No Current occupational status: unemployed Cognitive needs: No Hearing needs: No Vision needs: No Physical Exam ED Vital Signs: Vital Signs - 24 hr 09/22/22 15:45 09/22/22 18:00 09/22/22 19:10 Temperature 97.6 F 98.4 F Pulse Rate 84 95 87 Respiratory Rate 16 17 17 Blood Pressure 97/65 94/61 103/70 Pulse Oximetry 94 98 93 Oxygen Delivery Method Room Air Room Air Room Air 09/22/22 19:56 Temperature 98.4 F Pulse Rate 92 Respiratory Rate 16 Blood Pressure 105/69 Pulse Oximetry 94 Oxygen Delivery Method Room Air BMI result Body Mass Index 25.0 GEN: Well developed, no acute distress, alert, oriented, intoxicated slurred speech HEENT: Normocephalic, atraumatic, normal external ears, nose appears normal, no oropharyngeal edema or exudates Eyes: Normal to appearance Neck: Supple, no lymphadenopathy Respiratory: Talks in complete sentences, no respiratory distress, clear to auscultation bilaterally Cardiovascular: Regular rate and rhythm, no murmurs rubs or gallops Abdomen: Soft, nontender, nondistended, no guarding, no rebound Back: No CVA tenderness Extremities: No clubbing cyanosis or edema Neurologic: No focal neurologic deficits, cranial nerves 2-12 intact, strength is 5/5 bilaterally Skin: No rash Course Course Course Narrative: The workup is complete at this time. Patient is pending clinical sobriety. No detox beds available. Patient will be made aware by our care team. We will make him aware of all of his additional medical findings prior to discharge. Will discuss all discharge instructions. He knows he can return at any time for re-evaluation. He has no emergent psychiatric concerns including denies depression, anxiety or need for behavioral health evaluation. He reports having a strong support system with his . We will provide him with a list of alternative resources. Reevaluation(s) Reevaluation #1: Has spent some time with the patient regarding the inability for us to provide detox from today. There are no beds available as an outpatient. We also informed him that this is not a detox facility that we are not able to provide him with the services. I also spoke with his . They were clearly frustrated which I totally understand. I did provide the patient with a list of resources including or patient resource booklet from 2022, acute treatment services/detox she with a significant number for local resources, and contact information regarding [facility] incorporated. Patient did ask for a cane. We have none available for him. I did provide him with pain medication for his back including Tylenol and ibuprofen. We will be discharging him shortly. Time: 20:15 Medical Decision Making Medical Decision Making [facility] Narrative: 52-year-old male with history of alcohol abuse presents requesting alcohol detox. Patient is intoxicated clinically. He has no focal deficits. Patient does appear to have reports some form of history of depression anxiety. Does have a history of hallucinations secondary to cyclobenzaprine which he will never take again. At this point, differential diagnosis includes substance abuse, alcohol intoxication, alcohol abuse, depression, anxiety, PTSD, mood disorder. Plan assess for alcohol intoxication as well as other substances. Consider care team evaluation for detox. Differential Diagnosis Differential Diagnoses: The differential diagnosis associated with the presentation includes (See above) Admission/Observation Consideration of admission/observation: Escalation of care including admission/observation considered Consult Healthcare Provider Management of the patient was discussed with: Behavioral Health Provider Lab Data [facility] Lab Attestation statement: I reviewed the patient's lab results. 09/22/22 15:52 09/22/22 15:52 Labs: Lab Results 09/22/22 09/22/22 09/22/22 Range/Units 15:52 15:52 15:53 WBC 11.1 H (4.8-10.8) X10*3/uL RBC 3.42 L (4.60-5.80) X10*6/uL Hgb 12.3 L (14.0-18.0) g/dl Hct 35.4 L (42.0-52.0) % MCV 103.5 H (80.0-98.0) fL MCH 36.0 H (27.0-33.0) pg MCHC 34.7 (31.0-36.0) g/dl RDW 15.3 (11.0-16.0) % Plt Count 217 (160-400) X10*3/uL MPV 10.1 (9.4-12.4) fL Immature Gran % (Auto) 0.4 (0.0-0.4) % Neut % (Auto) 58.6 (45-73) % Lymph % (Auto) 31.0 (20-40) % [place] % (Auto) 7.3 (2-11) % Eos % (Auto) 1.7 (0-4) % Baso % (Auto) 1.0 (0-2) % Lymph # (Auto) 3.4 (1.2-4.9) X10*3/uL [place] # (Auto) 0.8 (0.1-1.2) X10*3/uL Eos # (Auto) 0.2 (0.0-0.4) X10*3/uL Baso # (Auto) 0.1 (0.0-0.2) X10*3/uL Abs Immat Gran (auto) 0.04 H (0.00-0.03) X10*3/uL Absolute Neuts (auto) 6.5 (2.0-8.3) x10*3/uL Absolute Nucleated RBC 0.000 (0.0-0.012) X10*3/uL Nucleated RBC % (auto) 0.0 (0.0-0.2) /100WBC Sodium 145 (135-145) mmol/L Potassium 2.7 L D (3.3-5.1) mmol/L Chloride 101 (96-108) mmol/L Carbon Dioxide 27 (22-29) mmol/L Anion Gap 20 (12-20) BUN 3 L (9-16) mg/dL Creatinine 0.56 (0.5-1.4) mg/dL Estim Creat Clear Calc 157.5 Estimated GFR > 60 Random Glucose 97 (60-115) mg/dL Calcium 8.7 (8.4-10.2) mg/dL Total Bilirubin 2.5 H (0.0-1.0) mg/dL AST 109 H (5-37) U/L ALT 28 (0-40) U/L Alkaline Phosphatase 172 H (39-117) U/L Total Protein 6.8 (6.5-8.0) g/dL Albumin 3.3 L (3.5-5.0) g/dL TSH 1.71 (0.32-4.0) uIU/mL Ethyl Alcohol 299 mg/dL COVID-19 (SATHISH) Negative (Negative) COVID-19 Clin Com See Note Independent Historian Clinical information obtained from an independent historian. History obtained from or confirmed by: EMS External Record Review External record reviewed: Outpatient record (Primary care provider note) Prescription Management I considered prescription management with: Other (Anxiety medications) Chronic Conditions Patient?s care impacted by: Other (Alcohol abuse) Medications Administered Discontinued Medications Generic Name Dose Route Start Last Admin Trade Name Freq PRN Reason Stop Dose Admin Potassium Chloride 40 meq 09/22/22 16:33 09/22/22 17:04 Potassium Chloride Packet 20 Meq Packet PO 09/22/22 16:34 40 meq ONCE ONE Administration Discharge Plan Discharge Clinical Impression: Alcoholic intoxication, Hypokalemia, Elevated LFTs Patient Disposition: Home, Self-Care Prescriptions: No Action omeprazole 20 mg capsule,delayed release(DR/EC) 20 mg PO DAILY 90 Days Qty: 90 0RF albuterol sulfate 90 mcg/actuation HFA aerosol inhaler 2 inh inhalation QID PRN (Reason: shortness of breath or wheezing) 30 Days Qty: 8.5 3RF ibuprofen 800 mg tablet 800 mg PO Q8H PRN (Reason: pain) 20 Days Qty: 60 0RF lidocaine 4 % Adhesive Patch,Medicated 1 patch TOPICAL DAILY PRN (Reason: Pain)
--- NOTE | 2022-09-22 16:19 | PHA.MEDREC ---
Pharmacy Consult ? Medication Reconciliation Pharmacy has completed the medication reconciliation. spoke with patient. Patient reported that he is no longer taking cyclobenzaprine due to having hallucinations.
[2022-09-22 16:23] LABS: Alanine Aminotransferase 28 U/L (0-40); Albumin Level 3.3 g/dL (3.5-5.0); Alkaline Phosphatase 172 U/L (39-117); Anion Gap 20 (12-20); Aspartate Amino Transferase 109 U/L (5-37); Bilirubin Total 2.5 mg/dL (0.0-1.0); Blood Urea Nitrogen 3 mg/dL (9-16); Calcium 8.7 mg/dL (8.4-10.2); Carbon Dioxide 27 mmol/L (22-29); Chloride 101 mmol/L (96-108); Creatinine Clr Calc Pharmacy 157.5; Estimated Glomerular Filt Rate > 60; Ethanol 299 mg/dL; Glucose Random 97 mg/dL (60-115); Potassium 2.7 mmol/L (3.3-5.1); Sodium 145 mmol/L (135-145); Total Protein 6.8 g/dL (6.5-8.0)
[2022-09-22 16:37] LABS: TSH reflex Free T4 1.71 uIU/mL (0.32-4.0)
--- NOTE | 2022-09-22 17:04 | MHC.RECOVSUP ---
Met with pt in ED16 who is here for TRENT and potential ATS. Pt informs he has been drinking about 7-10+ nips a day for the past 2 years since he got out of ATS at [facility]. Pt is not on TRISHA and is not interested in it at this time. Pt would like ATS and prefers to not go further than [place]. ATS bed search in progress.
--- NOTE | 2022-09-22 17:06 | PC.NURSE ---
Alert and oriented, K+ given as ordered. Patient provided with food and fluids.
[2022-09-22 18:00] VITALS: BP 94/61; PULSE 95; RESP 17; TEMP 36.9; O2SAT 98
[2022-09-22 19:10] VITALS: BP 103/70; PULSE 87; RESP 17; O2SAT 93
[2022-09-22 19:56] VITALS: BP 105/69; PULSE 92; RESP 16; TEMP 36.9; O2SAT 94
== END 2022-09-22 21:01 | disposition home or self-care (01) ==
PROVIDERS: Emergency Provider Emergency Medicine; PCP Nurse Practitioner Family
DX: F10.220 Alcohol dependence with intoxication, uncomplicated (principal); Y90.8 Blood alcohol level of 240 mg/100 ml or more; E87.6 Hypokalemia; R79.89 Other specified abnormal findings of blood chemistry; Z20.822 Contact with and (suspected) exposure to COVID-19; F17.210 Nicotine dependence, cigarettes, uncomplicated; J45.909 Unspecified asthma, uncomplicated; Z79.899 Other long term (current) drug therapy
CPT/HCPCS: 80053; 80307; 84443; 85025; 87635; 99284; 99285

== ENCOUNTER 2022-09-29 01:30 | Inpatient (IN) | payer OTHER, SELFPAY ==
[2022-09-29] VITALS (10 sets, daily range): BP systolic 106–145; BP diastolic 70–89; PULSE 71–96; RESP 16–18; TEMP 36.5–37.1; O2SAT 95–99; BMI 25.8
--- NOTE | ~2022-09-29 | US_ITS ---
EXAMINATION: US ABDOMEN LIMITED CLINICAL INFORMATION: Elevated LFTs. COMPARISON: 07/05/2021 TECHNIQUE: Real-time imaging of the right upper quadrant abdominal viscera. FINDINGS: PANCREAS: Tail obscured. LIVER: Enlarged. Nodular surface contour. Coarse echotexture and increased parenchymal echogenicity. Round echogenic lesion in the right hepatic lobe measures 1.2 x 0.9 x 1.3 cm. Evaluation is limited due to poor sound beam penetration through the coarse echogenic liver parenchyma. There is no intrahepatic biliary duct dilatation seen. Small perihepatic free fluid. GALLBLADDER: The gallbladder contains sludge and possible stones. Negative sonographic Kinsey's sign. COMMON BILE DUCT: Normal in caliber measuring 0.4 cm in diameter. RIGHT KIDNEY: No hydronephrosis. No renal calculi or focal parenchymal lesions. The kidney measures 12.4 cm in maximum dimension. FREE FLUID: None. US/US abdomen limited IMPRESSION: Hepatomegaly. Chronic liver disease. Small ascites. Possible right hepatic hemangioma measuring 1.2 x 0.9 x 1.0 cm. MRI abdomen may be considered for further characterization. Sludge and possible stones in the gallbladder. No sonographic evidence of acute cholecystitis.
--- NOTE | 2022-09-29 07:09 | ED_ITS ---
HPI - Neuro Symptoms/Deficit General Chief Complaint: Neuro Symptoms/Deficit Stated Complaint: dehydration Time Seen by Provider: 09/29/22 06:38 Source: patient Mode of arrival: ambulatory Limitations: no limitations History of Present Illness HPI Narrative: 52 year old male with history of chronic back pain with degenerative disc disease and nerve root compression, alcohol use disorder, chronic pancreatitis who presents to the ER for evaluation numbness and tingling in his bilateral feet and hands after going for a walk yesterday. Patient states he is due for back surgery in October and deals with chronic pain which limits his mobility. He decided to walk his dog yesterday and thinks he over did it. When he was on walking he had numbness and tingling in his bilateral feet and hands. He he went slept in his car for a few hours and woke up with ongoing tingling in his hands. It is slowly been subsiding. He reports chronic lower extremity weakness but no weakness in his arms or hands. No chest pain or abdominal pain. He states he drinks 4-5 nips per day but his last drink was about a week ago. Onset (ago): day(s) (1) Location: left arm, right arm, left leg and right leg History of same: Yes Severity: moderate Quality: tingling Relieving factors: time and rest Exacerbating factors: other (Exacerbation) Context: gradual onset On Anticoagulants: No Associated symptoms: denies other symptoms Treatments Prior to Arrival: none Related Data Home Medications Medication Instructions Recorded Confirmed lidocaine 4 % topical patch 1 patch topical DAILY PRN Pain 09/22/22 09/22/22 Previous Rx's Medication Instructions Recorded omeprazole 20 mg capsule,delayed 20 mg PO DAILY 90 days #90 caps 07/07/22 release albuterol sulfate 90 mcg/actuation 2 inh inhalation QID PRN shortness 07/08/22 aerosol inhaler of breath or wheezing 30 days #8.5 grams ibuprofen 800 mg tablet 800 mg PO Q8H PRN pain 20 days #60 08/11/22 tabs Allergies Allergy/AdvReac Type Severity Reaction Status Date / Time No Known Allergies Allergy Verified 08/25/22 14:53 Review of Systems Review of Systems: Yes all other systems are reviewed and are negative PMFSH Past Medical History Medical History Alcohol abuse Asthma Autoimmune disease Depression Lyme disease Pancreatitis Surgical History No pertinent past surgical history Family History Family History Father Heart attack Mother No problems noted. Sister No problems noted. Daughter No problems noted. Social History Social History Household Members: Spouse and Friend(s) Housing: House Do you presently have visiting nurse or other home services: No Alcohol intake: current Alcohol intake frequency: a few times a week Alcohol type: hard liquor Patient Tobacco Use Status: Tobacco use Unknown Tobacco use type: Cigarette Cigarette Packs Per Day: 1 Cigarettes Per Day: 20.0 Years Smoked: 39 Smoked in Last 30 Days: Yes e-Cigarette/Vaping Use: Never Used Use of substances other than those prescribed or required for medical reasons: No Substance Use Type: Marijuana Advance Directives: No Advance Directives Information Provided: No Current occupational status: unemployed Cognitive needs: No Hearing needs: No Vision needs: No Physical Exam Vital Signs: Vital Signs: Last Vital Signs Temp 98.5 F 09/29/22 10:36 Pulse 85 09/29/22 10:36 Resp 16 09/29/22 10:36 BP 106/72 09/29/22 10:36 Pulse Ox 96 09/29/22 10:36 O2 Del Method Room Air 09/29/22 10:36 BMI result Body Mass Index 25.8 Appearance: Alert. Oriented X3. No acute distress. Head: normocephalic, atraumatic. Eyes: Pupils equal, round and reactive to light. scleral icterus ENT: Poor dentition. Pharynx normal. No tonsillar swelling or exudate. Neck: Normal inspection. Neck supple. CVS: Normal heart rate and rhythm. Pulses normal. Respiratory: No respiratory distress. Breath sounds normal. Abdomen: Soft and nontender. +BS x4 Skin: Skin warm and dry. Normal skin color. Normal skin turgor. No rashes. Extremities: No lower extremity edema. No joint swelling. Neuro/psych: Oriented X 3. No motor deficit. No sensory deficit. CN II-XII intact. Normal speech and cognition. Course Reevaluation(s) Reevaluation #1: physician observation started at this pending. pending repeat labs to show improvement K and Mg. VSS, symptoms continue to improve. Time: 08:31 Reevaluation #2: Physician observation discontinued at this time. Patient is to be admitted to the hospital. Unfortunately his potassium down trended after 60 mg of oral K. IV is being established now for IV repletion, additional p.o. repletion was already been ordered. Will further management. Spoke with hospitalist would like right upper quadrant ultrasound which has been ordered Time: 10:54 Medications Administered Discontinued Medications Generic Name Dose Route Start Last Admin Trade Name Lisette PRN Reason Stop Dose Admin Magnesium Oxide 800 mg 09/29/22 08:09 09/29/22 08:50 Magnesium Oxide 400 Mg Tablet PO 09/29/22 08:10 800 mg ONCE ONE Administration Potassium Chloride 60 meq 09/29/22 08:08 09/29/22 08:50 Potassium Chloride Er 20 Meq Tab.Er.Prt PO 09/29/22 08:09 60 meq ONCE ONE Administration Medical Decision Making Medical Decision Making MDM Narrative: 52 y/o male with history of ETOH use, chronic back pain w/ nerve root compression who presents to the ER for evaluation of tingling sensation in all 4 extremities after walking. Symptoms are slowly improving. He has no focal weakness. His neuro exam is nonfocal. Basic labs were checked and he was found have a potassium of 2.8. His magnesium is also low. This is consistent with alcohol abuse and dependence. He states his last drink was a week ago. He has no signs or symptoms of alcohol withdrawa l at this time. He is tolerating p.o.. He denies any abdominal pain. He has acute on chronic elevated liver function tests and hyperbilirubinemia without any associated pain. Doubt any biliary obstruction or stone. Most likely due to alcohol use. Will defer right upper quadrant ultrasound at this time. Differential Diagnosis Differential Diagnoses: The differential diagnosis associated with the presentation includes Anxiety, electrolyte derangement, dehydration, neuropathy due to alcohol abuse, less likely CVA or TIA Admission/Observation Consideration of admission/observation: Escalation of care including admission/observation considered Severe hypokalemia did not respond to PO repletion, requires admission Consult Healthcare Provider Management of the patient was discussed with: Hospitalist Lab Data [facility] Lab Attestation statement: I reviewed the patient's lab results. Stable anemia and thrombocytopenia, hypokalemia and hypomagnesemia elevated liver function tests and hyperbilirubinemia 09/29/22 07:21 07 07:21 Labs: Lab Results 09/29/22 09/29/22 09/29/22 Range/Units 07:21 07:21 07:21 WBC 7.2 (4.8-10.8) X10*3/uL RBC 3.36 L (4.60-5.80) X10*6/uL Hgb 12.0 L (14.0-18.0) g/dl Hct 35.4 L (42.0-52.0) % MCV 105.4 H (80.0-98.0) fL MCH 35.7 H (27.0-33.0) pg MCHC 33.9 (31.0-36.0) g/dl RDW 13.3 (11.0-16.0) % Plt Count 152 L D (160-400) X10*3/uL MPV 10.7 (9.4-12.4) fL Immature Gran % (Auto) 0.4 (0.0-0.4) % Neut % (Auto) 60.5 (45-73) % Lymph % (Auto) 25.5 (20-40) % [place] % (Auto) 10.7 (2-11) % Eos % (Auto) 2.1 (0-4) % Baso % (Auto) 0.8 (0-2) % Lymph # (Auto) 1.8 (1.2-4.9) X10*3/uL [place] # (Auto) 0.8 (0.1-1.2) X10*3/uL Eos # (Auto) 0.2 (0.0-0.4) X10*3/uL Baso # (Auto) 0.1 (0.0-0.2) X10*3/uL Abs Immat Gran (auto) 0.03 (0.00-0.03) X10*3/uL Absolute Neuts (auto) 4.3 (2.0-8.3) x10*3/uL Absolute Nucleated RBC 0.000 (0.0-0.012) X10*3/uL Nucleated RBC % (auto) 0.0 (0.0-0.2) /100WBC Sodium 138 (135-145) mmol/L Potassium 2.8 L (3.3-5.1) mmol/L Chloride 97 (96-108) mmol/L Carbon Dioxide 28 (22-29) mmol/L Anion Gap 16 (12-20) BUN 3 L (9-16) mg/dL Creatinine 0.64 (0.5-1.4) mg/dL Estim Creat Clear Calc 137.8 Estimated GFR > 60 Random Glucose 88 (60-115) mg/dL Calcium 9.1 (8.4-10.2) mg/dL Magnesium 1.5 L (1.6-2.6) mg/dL Total Bilirubin 5.7 H (0.0-1.0) mg/dL Direct Bilirubin 3.0 H (0.0-0.5) mg/dL AST 60 H (5-37) U/L ALT 17 (0-40) U/L Alkaline Phosphatase 122 H (39-117) U/L Total Protein 6.6 (6.5-8.0) g/dL Albumin 3.2 L (3.5-5.0) g/dL TSH 3.91 (0.32-4.0) uIU/mL Urine Color Urine Appearance Urine pH (5.0-9.0) Ur Specific [place] (1.005-1.025) Urine Protein (Neg-Trace) mg/dL Urine Glucose (UA) (Negative) mg/dL Urine Ketones (Negative) mg/dL Urine Blood (Negative) Urine Nitrite (Negative) Ur Leukocyte Esterase (Negative) Urine RBC (0-2) /HPF Urine WBC (0-5) /HPF Ur Squamous Epith Cells (0-2) /HPF Urine Bacteria (None Seen) Hyaline Casts (0-2) /LPF Ethyl Alcohol < 10 mg/dL 09/29/22 09/29/22 Range/Units 09:48 09:49 WBC (4.8-10.8) X10*3/uL RBC (4.60-5.80) X10*6/uL Hgb (14.0-18.0) g/dl Hct (42.0-52.0) % MCV (80.0-98.0) fL MCH (27.0-33.0) pg MCHC (31.0-36.0) g/dl RDW (11.0-16.0) % Plt Count (160-400) X10*3/uL MPV (9.4-12.4) fL Immature Gran % (Auto) (0.0-0.4) % Neut % (Auto) (45-73) % Lymph % (Auto) (20-40) % [place] % (Auto) (2-11) % Eos % (Auto) (0-4) % Baso % (Auto) (0-2) % Lymph # (Auto) (1.2-4.9) X10*3/uL [place] # (Auto) (0.1-1.2) X10*3/uL Eos # (Auto) (0.0-0.4) X10*3/uL Baso # (Auto) (0.0-0.2) X10*3/uL Abs Immat Gran (auto) (0.00-0.03) X10*3/uL Absolute Neuts (auto) (2.0-8.3) x10*3/uL Absolute Nucleated RBC (0.0-0.012) X10*3/uL Nucleated RBC % (auto) (0.0-0.2) /100WBC Sodium (135-145) mmol/L Potassium 2.6 L (3.3-5.1) mmol/L Chloride (96-108) mmol/L Carbon Dioxide (22-29) mmol/L Anion Gap (12-20) BUN (9-16) mg/dL Creatinine (0.5-1.4) mg/dL Estim Creat Clear Calc Estimated GFR Random Glucose (60-115) mg/dL Calcium (8.4-10.2) mg/dL Magnesium (1.6-2.6) mg/dL Total Bilirubin (0.0-1.0) mg/dL Direct Bilirubin (0.0-0.5) mg/dL AST (5-37) U/L ALT (0-40) U/L Alkaline Phosphatase (39-117) U/L Total Protein (6.5-8.0) g/dL Albumin (3.5-5.0) g/dL TSH (0.32-4.0) uIU/mL Urine Color Dark Yellow Urine Appearance Clear Urine pH 6.0 (5.0-9.0) Ur Specific [place] 1.020 (1.005-1.025) Urine Protein Trace (Neg-Trace) mg/dL Urine Glucose (UA) Negative (Negative) mg/dL Urine Ketones 40 (Negative) mg/dL Urine Blood Negative (Negative) Urine Nitrite Positive H (Negative) Ur Leukocyte Esterase Trace H (Negative) Urine RBC 0-2 (0-2) /HPF Urine WBC 0-5 (0-5) /HPF Ur Squamous Epith Cells 11-20 (0-2) /HPF Urine Bacteria None Seen (None Seen) Hyaline Casts 3-5 (0-2) /LPF Ethyl Alcohol mg/dL External Record Review External record reviewed: Outpatient record and Prior outpatient labs Prescription Management I considered prescription management with: Other (Electrolytes) Chronic Conditions Patient?s care impacted by: Other (Alcohol abuse dependence, chronic pain) Social Determinants Patient?s care significantly limited by Social Determinants of Health including: Inadequate housing, Alcoholism and drug addiction in family and Other Social Determinant of Health Critical Care Time Critical Care Time Critical Care Time: Yes Total Critical Care Time: 38 Attestation: I have personally provided critical care time exclusive of time spent on separately billable procedures. Time includes review of lab data, radiology results, trending of labs and frequent reassessments, and monitoring for potential decompensation. Intervention performed as documented. Discharge Plan Discharge Clinical Impression: Neuropathy, Hypokalemia, Hypomagnesemia, Elevated liver enzymes Patient Disposition: Admitted As Inpatient
--- NOTE | 2022-09-29 07:14 | PC.NURSE ---
patient resting in bed quietly, vital signs stable, patient resp equal and unlabored. patient requesting food.
[2022-09-29 07:26] LABS: MANUAL DIFF FLAG NO
[2022-09-29 07:29] LABS: Basophils Absolute Auto 0.1 X10*3/uL (0.0-0.2); Basophils Percent Auto 0.8 % (0-2); Eosinophils Absolute Auto 0.2 X10*3/uL (0.0-0.4); Eosinophils Percent Auto 2.1 % (0-4); Hematocrit 35.4 % (42.0-52.0); Imm Gran Abs Auto 0.03 X10*3/uL (0.00-0.03); Imm Gran Pct Auto 0.4 % (0.0-0.4); Lymphocytes Absolute Auto 1.8 X10*3/uL (1.2-4.9); Lymphocytes Percent Auto 25.5 % (20-40); Mean Corpuscular HGB Conc 33.9 g/dl (31.0-36.0); Mean Corpuscular Hemoglobin 35.7 pg (27.0-33.0); Mean Corpuscular Volume 105.4 fL (80.0-98.0); Mean Platelet Volume 10.7 fL (9.4-12.4); Monocytes Absolute Auto 0.8 X10*3/uL (0.1-1.2); Monocytes Percent Auto 10.7 % (2-11); Neutrophils Absolute Auto 4.3 x10*3/uL (2.0-8.3); Neutrophils Percent Auto 60.5 % (45-73); Platelet Count 152 X10*3/uL (160-400); Red Blood Count 3.36 X10*6/uL (4.60-5.80); Red Cell Distribution Width 13.3 % (11.0-16.0); White Blood Count 7.2 X10*3/uL (4.8-10.8)
[2022-09-29 07:40] LABS: Ethanol < 10 mg/dL
[2022-09-29 08:05] LABS: Alanine Aminotransferase 17 U/L (0-40); Albumin Level 3.2 g/dL (3.5-5.0); Alkaline Phosphatase 122 U/L (39-117); Anion Gap 16 (12-20); Aspartate Amino Transferase 60 U/L (5-37); Bilirubin Total 5.7 mg/dL (0.0-1.0); Blood Urea Nitrogen 3 mg/dL (9-16); Calcium 9.1 mg/dL (8.4-10.2); Carbon Dioxide 28 mmol/L (22-29); Chloride 97 mmol/L (96-108); Creatinine Clr Calc Pharmacy 137.8; Estimated Glomerular Filt Rate > 60; Glucose Random 88 mg/dL (60-115); Magnesium 1.5 mg/dL (1.6-2.6); Potassium 2.8 mmol/L (3.3-5.1); Sodium 138 mmol/L (135-145); TSH reflex Free T4 3.91 uIU/mL (0.32-4.0); Total Protein 6.6 g/dL (6.5-8.0)
[2022-09-29] MEDS: Magnesium Oxide 400 MG TABLET 800 MG PO (08:50)
[2022-09-29] MEDS: Potassium Chloride ER 20 MEQ TAB.ER.PRT 60 MEQ PO ×2 (08:50→10:59)
[2022-09-29 10:07] LABS: Appearance Urine Clear; Color Urine Dark Yellow; Glucose Urine UA Negative (Negative); Leukocyte Esterase Urine Trace (Negative); Nitrite Urine Positive (Negative); UMIC TRIGGER UACC YES; Urine Blood Negative (Negative); Urine Ketones 40 mg/dL (Negative); Urine Protein Trace mg/dL (Neg-Trace)
[2022-09-29 10:16] LABS: RBC Urine 0-2 /HPF (0-2); UACC Culture Trigger YES; WBC Urine 0-5 /HPF (0-5)
[2022-09-29 10:18] LABS: Bacteria Urine None Seen (None Seen)
[2022-09-29 10:24] LABS: Potassium 2.6 mmol/L (3.3-5.1)
[2022-09-29] MEDS: Potassium Chloride/H20 10 MEQ/100 ML PIGGYBACK 100 MEQ IV ×4 (10:58→14:28)
--- NOTE | 2022-09-29 11:25 | P.HPHOSP_ITS ---
the patient was seen and evaluated with HENOK Lizama. I agree with his note, assessment and plan with the following. A 52-year-old male with a PMH of alcohol use disorder, chronic pancreatitis, asthma and chronic back pain who presents with?numbness and tingling in extremities bilaterally with overall weakness since yesterday.? Blood work in ED showed K of 2.8 , low Mg and elevated Bili. Replacement of electrolytes follow BMP Abd US monitor LFT Rest of evaluations by HENOK note. History of Present Illness Date of Service: 09/29/22 Attending physician on admission: Maya Alvarado Chief Complaint: Hypokalemia Pt is a 52-year-old male with a PMH significant for?asthma, alcohol use disorder, chronic pancreatitis, and chronic back pain with degenerative disc disease and nerve root compression who presents to the ED with?numbness and tingling in extremities bilaterally since yesterday. Patient was walking his dog when he began feeling numbness and tingling in his feet and fingers bilaterally. Patient notes that he has chronic lower back pain with severe L5- S1 lumbar degenerative disc disease and left L5 severe foraminal stenosis and plans on getting lumbar fusion surgery in October. Has thus had limited mobility and strength for the past year plus. Patient initially thought that he ?over did it? with exercise and walking the dog. However, after resting numbness and tingling did not resolve. Patient awoke this morning with persistent numbness and tingling in his extremities which prompted his visit to the emergency department. Of note, patient has a long history of alcohol use disorder and reports previously drinking 5 nips per day. Patient states he has not had a drink for the past 10 days, which is the longest period of sobriety he has had for the past 15 years. He is a current everyday half pack smoker with chronic shortness of breath at baseline. Has chronic alcoholic pancreatitis and reports chronic left-sided abdominal pain at baseline. Patient states that he did have a recent week-long bout of diarrhea that ended 4-5 days ago. Reports was mild with 2-3 episodes of diarrhea per day. Patient and his are currently homeless and living out of their car. They have limited access to food and nutrition. In the ED vital signs are stable. Labs were significant for initial potassium of 2.8 with repeat 2.6, magnesium 1.5, bilirubin 5.7, AST 60, alk-phos 122, H&H 12.0/35.4, MCV 105.4. URQ ultrasound pending. Pt was treated with potassium cholirde 60 meq po x2 doses, potassium chloride 10 meq IV x 2 doses, and magnesium oxide 800mg po. Pt will be admitted to the hospital for symptomatic hypokalemia requiring IV replenishment and close monitoring. Review of Systems Review of Systems: Numbness and tingling in upper and lower extremities bilaterally Mild nausea, no vomiting 1 week of diarrhea, ended 4 days ago Chronic lower leg weakness Chronic lower back pain Chronic left-sided abdominal pain Chronic SOB with exertion Denies left upper quadrant pain No chest pain/pressure, palpitations Denies fever, chills Yes all other systems are reviewed and are negative [facility] Medical History Alcohol abuse Asthma Autoimmune disease Depression Lyme disease Pancreatitis Family History Father Heart attack Mother No problems noted. Sister No problems noted. Daughter No problems noted. Surgical History No pertinent past surgical history Social History Household Members: Spouse and Friend(s) Housing: House Do you presently have visiting nurse or other home services: No Alcohol intake: current Alcohol intake frequency: a few times a week Alcohol type: hard liquor Patient Tobacco Use Status: Tobacco use Unknown Tobacco use type: Cigarette Cigarette Packs Per Day: 1 Cigarettes Per Day: 20.0 Years Smoked: 39 Smoked in Last 30 Days: Yes e-Cigarette/Vaping Use: Never Used Use of substances other than those prescribed or required for medical reasons: No Substance Use Type: Marijuana Advance Directives: No Advance Directives Information Provided: No Current occupational status: unemployed Cognitive needs: No Hearing needs: No Vision needs: No Meds Allergies Allergy/AdvReac Type Severity Reaction Status Date / Time No Known Allergies Allergy Verified 08/25/22 14:53 Active Medications: Current Medications Potassium Chloride (Potassium Chloride/H20) 10 meq in 100 mls @ 100 mls/hr IV Q1H HUSSEIN Stop: 09/29/22 14:29 Last Admin: 09/29/22 10:58 Dose: 100 mls/hr Home Medications Medication Instructions Recorded Confirmed Last Taken Type lidocaine 4 % topical patch 1 patch topical DAILY PRN Pain 09/22/22 09/29/22 Unknown History nitrofurantoin 1 cap PO BID 09/29/22 09/29/22 09/28/22 History monohydrate/macrocrystals 100 mg capsule Physical Exam Vital Signs and Narrative: Vital Signs: Last Vital Signs Temp 98.5 F 09/29/22 10:36 Pulse 85 09/29/22 10:36 Resp 16 09/29/22 10:36 BP 106/72 09/29/22 10:36 Pulse Ox 96 09/29/22 10:36 O2 Del Method Room Air 09/29/22 10:36 BMI result Body Mass Index 25.8 Constitutional: Alert, in no acute distress. Mental Status: Oriented to person, place and time. Eyes: Pupils are equal, round, and reactive to light. Sclera icteric. Ear, Nose, and Throat: Oropharynx clear, mucous membranes moist. Ears and nose without deformities. Trachea midline. Respiratory: Upper left wheezing. Cardiovascular: S1, S2 regular. No murmurs, rubs, or gallops. Gastrointestinal: Abdomen soft, mild LUQ and LLQ tenderness, non-distended. Normal bowel sounds. Neurologic: Cranial nerves II-XII are grossly intact bilaterally. No focal neurological deficits. Moves all extremities spontaneously. Skin: No rashes or lesions noted. Musculoskeletal: No cyanosis or clubbing. Extremities: No edema. Mild jaundice noted in fingernails. Psychiatric: Normal mood and affect. Results Labs 09/29/22 07:21 09/29/22 09:48 Labs: Laboratory Results - last 24 hr 09/29/22 09/29/22 09/29/22 07:21 07:21 07:21 MCV 105.4 H MCH 35.7 H MCHC 33.9 RDW 13.3 Plt Count 152 L D MPV 10.7 Immature Gran % (Auto) 0.4 Neut % (Auto) 60.5 Lymph % (Auto) 25.5 [place] % (Auto) 10.7 Eos % (Auto) 2.1 Baso % (Auto) 0.8 Lymph # (Auto) 1.8 [place] # (Auto) 0.8 Eos # (Auto) 0.2 Baso # (Auto) 0.1 Abs Immat Gran (auto) 0.03 Absolute Neuts (auto) 4.3 Absolute Nucleated RBC 0.000 Nucleated RBC % (auto) 0.0 Anion Gap 16 Estim Creat Clear Calc 137.8 Estimated GFR > 60 Random Glucose 88 Calcium 9.1 Magnesium 1.5 L Total Bilirubin 5.7 H Direct Bilirubin 3.0 H AST 60 H ALT 17 Alkaline Phosphatase 122 H Total Protein 6.6 Albumin 3.2 L TSH 3.91 Urine Color Urine Appearance Urine pH Ur Specific [place] Urine Protein Urine Glucose (UA) Urine Ketones Urine Blood Urine Nitrite Ur Leukocyte Esterase Urine RBC Urine WBC Ur Squamous Epith Cells Urine Bacteria Hyaline Casts Ethyl Alcohol < 10 09/29/22 09:49 MCV MCH MCHC RDW Plt Count MPV Immature Gran % (Auto) Neut % (Auto) Lymph % (Auto) [place] % (Auto) Eos % (Auto) Baso % (Auto) Lymph # (Auto) [place] # (Auto) Eos # (Auto) Baso # (Auto) Abs Immat Gran (auto) Absolute Neuts (auto) Absolute Nucleated RBC Nucleated RBC % (auto) Anion Gap Estim Creat Clear Calc Estimated GFR Random Glucose Calcium Magnesium Total Bilirubin Direct Bilirubin AST ALT Alkaline Phosphatase Total Protein Albumin TSH Urine Color Dark Yellow Urine Appearance Clear Urine pH 6.0 Ur Specific [place] 1.020 Urine Protein Trace Urine Glucose (UA) Negative Urine Ketones 40 Urine Blood Negative Urine Nitrite Positive H Ur Leukocyte Esterase Trace H Urine RBC 0-2 Urine WBC 0-5 Ur Squamous Epith Cells 11-20 Urine Bacteria None Seen Hyaline Casts 3-5 Ethyl Alcohol Assessment and Plan (1) Hypokalemia: Status: Acute (2) Neuropathy: Status: Acute (3) Hypomagnesemia: Status: Acute Plan Pt is a 52-year-old male with a PMH significant for?asthma, alcohol use disorder, chronic pancreatitis, and chronic back pain with degenerative disc disease and nerve root compression who presents to the ED with?numbness and tingling in extremities bilaterally since yesterday. Labs were significant for potassium of 2.8 that reduced to 2.6 with initial potassium supplementation. Pt will be admitted to the hospital for symptomatic hypokalemia requiring IV replenishment and close monitoring. Hypokalemia Patient's potassium 2.8 at time of presentation Received potassium chloride 60 meq po in ED, potassium lowered to 2.6 Pt then received IV and additional po potassium Possibly secondary to GI losses d/t diarrhea and poor nutrition Will check URQ ultrasound Will check B12, folate Follow BMP Hyperbilirubinemia Patient's bilirubin elevated at 5.7, up from 2.5 09/22/2022 Patient with history of alcohol use disorder, but denies recent alcohol use: States last drink was 10 days ago Patient with scleral icterus and mild jaundice in fingernails Patient denies right upper quadrant pain Will check URQ ultrasound Monitor BMP Hypomagnesmia Magnesium 1.5 Patient received mag oxide 800 mg p.o. in ED Will start on Mag oxide 400 mg p.o. bid Follow Mag, replenish as necessary UTI Pt diagnosed with UTI last week at [facility] Prescribed macrobid 100mg po bid, started yesterday Continue macrobid Alcohol use disorder Pt with history of drinking at least 5 nips per day States last drink 10 days ago, longest period of sobriety in 15 years Does not appear in acute withdrawal Macrocytic anemia Patient's H&H 12.0/35.4, MCV 105.4 Check B12, folate, supplement as necessary Chronic pancreatitis Secondary to alcohol use disorder Seems stable, at baseline Asthma Mild wheezing on auscultation Pt with chronic SOB at baseline Continue home inhalers Full Code Attending:?Dr. Alvarado DVT Prophylaxis: Lovenox Pt will require a hospitalization of at least two nights for treatment of?hy pokalemia with IV potassium replenishment. Time Spent With Patient Time: Total time managing care of this patient today ____ minutes. Quality Stroke Does the patient have a stroke diagnosis?: No VTE Prior VTE?: No VTE Risk Level:: Medical - moderate - high VTE Device Contraindication: Treatment Not Indicated VTE Drug Contraindication: N/A - Med Ordered
--- NOTE | 2022-09-29 11:44 | PHA.MEDREC ---
Pharmacy Consult ? Medication Reconciliation Pharmacy has completed the medication reconciliation. Patient confirmed medications. Raysa Khan, YohannesD
[2022-09-29 12:16] LABS: Amphetamine Screen Urine Not Detected (Not Detect); Barbiturates, Urine Not Detected (Not Detect); Benzodiazepines Screen Urine Not Detected (Not Detect); Cannabinoid Screen Urine Not Detected (Not Detect); Cocaine Screen Urine Not Detected (Not Detect); Fentanyl, urine Not Detected (Not Detect); Opiate Screen Urine Not Detected (Not Detect); Phencyclidine Screen Urine Not Detected (Not Detect)
[2022-09-29] MEDS: Omeprazole 20 MG CAPSULE.DR PO (13:14)
[2022-09-29] MEDS: Enoxaparin Sodium 40 MG/0.4 ML SYRINGE SUBCUT (13:15)
[2022-09-29] MEDS: Nitrofurantoin Monohyd/M-Cryst 100 MG CAPSULE PO ×2 (14:22→20:29)
[2022-09-29] MEDS: 0.9 % Sodium Chloride Flush 3 ML SYRINGE IVFLUSH ×2 (17:26→23:27)
[2022-09-29] MEDS: Magnesium Oxide 400 MG TABLET PO (17:51)
[2022-09-29 19:40] LABS: Anion Gap 14 (12-20); Blood Urea Nitrogen 4 mg/dL (9-16); Calcium 9.1 mg/dL (8.4-10.2); Carbon Dioxide 27 mmol/L (22-29); Chloride 101 mmol/L (96-108); Creatinine Clr Calc Pharmacy 129.7; Estimated Glomerular Filt Rate > 60; Glucose Random 113 mg/dL (60-115); Potassium 3.8 mmol/L (3.3-5.1); Sodium 138 mmol/L (135-145)
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
[2022-09-29 20:12] LABS: Folate 3.4 ng/mL (> or = 4.0); Vitamin B12 925 pg/mL (200-900)
[2022-09-29] MEDS: Ibuprofen 800 MG TABLET PO (23:26)
[2022-09-30] VITALS: BP 105/67; PULSE 72; RESP 20; TEMP 36.6; O2SAT 98
[2022-09-30] MEDS: Omeprazole 20 MG CAPSULE.DR PO (06:00)
[2022-09-30 06:03] LABS: Hematocrit 37.1 % (42.0-52.0); Hemoglobin 12.7 g/dl (14.0-18.0); Mean Corpuscular HGB Conc 34.2 g/dl (31.0-36.0); Mean Corpuscular Hemoglobin 36.1 pg (27.0-33.0); Mean Corpuscular Volume 105.4 fL (80.0-98.0); Mean Platelet Volume 10.8 fL (9.4-12.4); Platelet Count 170 X10*3/uL (160-400); Red Blood Count 3.52 X10*6/uL (4.60-5.80); Red Cell Distribution Width 13.2 % (11.0-16.0); White Blood Count 9.6 X10*3/uL (4.8-10.8)
[2022-09-30 06:19] LABS: Alanine Aminotransferase 17 U/L (0-40); Albumin Level 3.2 g/dL (3.5-5.0); Alkaline Phosphatase 137 U/L (39-117); Anion Gap 14 (12-20); Aspartate Amino Transferase 63 U/L (5-37); Bilirubin Total 4.3 mg/dL (0.0-1.0); Blood Urea Nitrogen 4 mg/dL (9-16); Calcium 9.3 mg/dL (8.4-10.2); Carbon Dioxide 25 mmol/L (22-29); Chloride 103 mmol/L (96-108); Creatinine Clr Calc Pharmacy 131.6; Estimated Glomerular Filt Rate > 60; Glucose Random 96 mg/dL (60-115); Magnesium 1.7 mg/dL (1.6-2.6); Potassium 3.5 mmol/L (3.3-5.1); Sodium 138 mmol/L (135-145); Total Protein 6.8 g/dL (6.5-8.0)
[2022-09-30 07:05] VITALS: BP 107/67; PULSE 70; RESP 16; TEMP 36.1; O2SAT 98
[2022-09-30] MEDS: 0.9 % Sodium Chloride Flush 3 ML SYRINGE IVFLUSH ×2 (07:21→16:35)
[2022-09-30] MEDS: Nitrofurantoin Monohyd/M-Cryst 100 MG CAPSULE PO ×2 (07:21→20:33)
[2022-09-30] MEDS: Magnesium Oxide 400 MG TABLET PO ×2 (07:21→16:35)
[2022-09-30] MEDS: Folic Acid 1 MG TABLET PO (07:21)
[2022-09-30] MEDS: Enoxaparin Sodium 40 MG/0.4 ML SYRINGE SUBCUT (11:46)
--- NOTE | 2022-09-30 12:34 | HO.PM.IMPN ---
Subjective Subjective Date of Service: 09/30/22 Interval History: Feels better overall but still nauseated No reported fever or chills Electrolytes improving feeling weak No other overnight events Review of Systems Review of Systems: Yes all other systems are reviewed and are negative Physical Exam Vital Signs: Vital Signs: Last Vital Signs Temp 97.0 F 09/30/22 07:05 Pulse 70 09/30/22 07:05 Resp 16 09/30/22 07:05 BP 107/67 09/30/22 07:05 Pulse Ox 98 09/30/22 07:05 O2 Del Method Room Air 09/30/22 07:05 BMI result Body Mass Index 25.8 Const: Other: Constitutional : Awake, interactive, not in distress Neck : Normal inspection, Supple Cardiovascular : RRR, no JVP, no lower extremity edema Respiratory : good bilateral air entry, no crackles, wheezes or rhonchi Gastrointestinal: soft, lax, Normal bowel sounds, Non tender Skin : Warm, Dry Neurological : Alert & oriented x3, No focal deficit , CN 2-12 within normal Objective Data Active Medications Acetaminophen (Acetaminophen 325 Mg Tablet) 650 mg PO Q6H PRN PRN Reason: Pain, Mild (Pain Scale 1-3) Albuterol Sulfate (Albuterol Sulfate 90 Mcg 8 Gm Inhaler) 2 puff INHALE QID PRN PRN Reason: shortness of breath or wheezing Docusate Sodium (Docusate Sodium 100 Mg Capsule) 100 mg PO DAILY PRN PRN Reason: Constipation Enoxaparin Sodium (Enoxaparin Sodium 40 Mg/0.4 Ml Syringe) 40 mg SUBCUT Q24H [facility] Last Admin: 09/30/22 11:46 Dose: 40 mg Documented By: FISH Folic Acid (Folic Acid 1 Mg Tablet) 1 mg PO DAILY [facility] Stop: 10/03/22 08:59 Last Admin: 09/30/22 07:21 Dose: 1 mg Documented By: FISH Ibuprofen (Ibuprofen 800 Mg Tablet) 800 mg PO Q8H PRN PRN Reason: Pain, Mild (Pain Scale 1-3) Last Admin: 09/29/22 23:26 Dose: 800 mg Documented By: ANTOIC Lidocaine (Lidocaine 4 % Patch Adh..Patch) 1 patch TRANSDERMA DAILY PRN; Protocol PRN Reason: Pain, Mild (Pain Scale 1-3) Magnesium Oxide (Magnesium Oxide 400 Mg Tablet) 400 mg PO BIDPC [facility] Last Admin: 09/30/22 07:21 Dose: 400 mg Documented By: FISH Nicotine Polacrilex (Nicotine Polacrilex 2 Mg Gum) 4 mg BUCCAL Q1H PRN PRN Reason: Nicotine Cravings Nitrofurantoin Macrocrystals (Nitrofurantoin Monohyd/M-Cryst 100 Mg Capsule) 100 mg PO BID [facility] Last Admin: 09/30/22 07:21 Dose: 100 mg Documented By: FISH Omeprazole (Omeprazole 20 Mg Capsule.) 20 mg PO DAILY@0630 [facility] Last Admin: 09/30/22 06:00 Dose: 20 mg Documented By: MAULIK Ondansetron HCl (Ondansetron Hcl 4 Mg/2 Ml Vial) 4 mg IVPUSH Q8H PRN PRN Reason: Nausea and Vomiting Pharmacy Consult (Consult Rx Perform Med Rec) 1 each MISCELLANE ONCE PRN PRN Reason: Consult order Sodium Chloride (0.9 % Sodium Chloride Flush 3 Ml Syringe) 3 ml IVFLUSH QSHIFT [facility] Last Admin: 09/30/22 07:21 Dose: 3 ml Documented By: FISH Labs 09/30/22 05:32 09/30/22 05:32 Labs: Laboratory Results - last 24 hr 09/29/22 09/29/22 09/30/22 18:48 18:48 05:32 MCV 105.4 H MCH 36.1 H MCHC 34.2 RDW 13.2 Plt Count 170 MPV 10.8 Absolute Nucleated RBC 0.000 Nucleated RBC % (auto) 0.0 Anion Gap 14 Estim Creat Clear Calc 129.7 Estimated GFR > 60 Random Glucose 113 Calcium 9.1 Magnesium Total Bilirubin AST ALT Alkaline Phosphatase Total Protein Albumin Vitamin B12 925 H Folate 3.4 L 09/30/22 05:32 MCV MCH MCHC RDW Plt Count MPV Absolute Nucleated RBC Nucleated RBC % (auto) Anion Gap 14 Estim Creat Clear Calc 131.6 Estimated GFR > 60 Random Glucose 96 Calcium 9.3 Magnesium 1.7 Total Bilirubin 4.3 H AST 63 H ALT 17 Alkaline Phosphatase 137 H Total Protein 6.8 Albumin 3.2 L Vitamin B12 Folate Assessment and Plan (1) Hypokalemia: Status: Acute (2) Hypomagnesemia: Status: Acute Plan Pt is a 52-year-old male with a PMH significant for?asthma, alcohol use disorder, chronic pancreatitis, and chronic back pain with degenerative disc disease and nerve root compression who presents to the ED with?numbness and tingling in extremities bilaterally since yesterday. Labs were significant for potassium of 2.8 that reduced to 2.6 with initial potassium supplementation. Pt will be admitted to the hospital for symptomatic hypokalemia requiring IV replenishment and close monitoring. Hypokalemia secondary to GI losses d/t diarrhea and poor nutrition replaced with good response Follow BMP Hyperbilirubinemia bilirubin down to 4.3, from 2.5 09/22/2022 URQ ultrasound showing chronic liver disease URQ ultrasound showing Possible right hepatic hemangioma measuring 1.2 x 0.9 x 1.0 cm. MRI abdomen may be considered for further characterization. Monitor LFT Hypomagnesmia Continue Mag oxide 400 mg p.o. bid Follow Mag, replenish as necessary UTI Pt diagnosed with UTI last week at [facility] Prescribed macrobid 100mg po bid, started yesterday Continue macrobid Alcohol use disorder Pt with history of drinking at least 5 nips per day States last drink 10 days ago, longest period of sobriety in 15 years Does not appear in acute withdrawal Macrocytic anemia Patient's H&H 12.0/35.4, MCV 105.4 low folate, supplement started Chronic pancreatitis Secondary to alcohol use disorder Seems stable, at baseline Asthma Mild wheezing on auscultation Pt with chronic SOB at baseline Continue home inhalers Full Code DVT Prophylaxis: Lovenox Pt will require a hospitalization of at overnight for treatment of?hypokalemia with IV potassium replenishment, monitor LFT pending safe discharge plan Time Spent With Patient Time: Total time managing care of this patient today ____ minutes. Quality Stroke Does the patient have a stroke diagnosis?: No VTE Prior VTE?: No VTE Risk Level:: Medical - moderate - high VTE Device Contraindication: Treatment Not Indicated VTE Drug Contraindication: N/A - Med Ordered
--- NOTE | 2022-09-30 14:45 | P.CDIM_ITS ---
PROVIDER RESPONSE TEXT: To clarify, the appropriate diagnosis supported by the clinical indicators: Mild persistent: without QUERY TEXT: PHYSICIAN'S DOCUMENTATION REQUEST Date of Query: 09/30/2022 12:41 PM EDT Patient Name: Tho [place] Admit Date: 09/29/2022 Dear Maya Alvarado, A review of the medical record indicates additional documentation may be needed. Please review below and update the documentation accordingly. Clinical indicators: PN: 09/30 - Asthma, mild wheezing on auscultation pt with chronic SOB at baseline Continue home inhalers Based on the above, please clarify in the Progress Notes further specificity regarding the type and a cuity of the asthma: Mild intermittent Please specify if with or without acute exacerbation or status asthmaticus Mild persistent Please specify if with or without acute exacerbation or status asthmaticus Moderate persistent Please specify if with or without acute exacerbation or status asthmaticus Severe persistent Please specify if with or without acute exacerbation or status asthmaticus Other Other (explain)Clinically unable to determine (explain)Thank you, Belinda Barajas, CCS, CDIS Use of terms such as suspected, likely, concern for, or probable (associated with a specific diagnosi s that is being evaluated, monitored, or treated as if it exists) are acceptable and can be coded in the inpatient se tting, when documented at the time of discharge. Please use your independent medical judgment in providing your response. THIS QUERY IS PART OF THE PERMANENT MEDICAL RECORD
[2022-09-30 15:19] VITALS: BP 124/68; PULSE 65; RESP 18; TEMP 36.6; O2SAT 98
[2022-09-30] MEDS: Lidocaine 4 % Patch ADH..PATCH 1 PATCH TRANSDERMA (20:32)
[2022-09-30] MEDS: Ibuprofen 800 MG TABLET PO (20:33)
[2022-09-30 23:54] VITALS: BP 130/76; PULSE 70; RESP 18; TEMP 36.6; O2SAT 98
[2022-10-01] MEDS: Omeprazole 20 MG CAPSULE.DR PO (06:12)
[2022-10-01 07:02] LABS: Anion Gap 13 (12-20); Blood Urea Nitrogen 3 mg/dL (9-16); Calcium 9.1 mg/dL (8.4-10.2); Carbon Dioxide 27 mmol/L (22-29); Chloride 102 mmol/L (96-108); Estimated Glomerular Filt Rate > 60; Glucose Random 92 mg/dL (60-115); Sodium 139 mmol/L (135-145)
[2022-10-01] MEDS: Nitrofurantoin Monohyd/M-Cryst 100 MG CAPSULE PO (07:22)
[2022-10-01] MEDS: 0.9 % Sodium Chloride Flush 3 ML SYRINGE IVFLUSH (07:22)
[2022-10-01] MEDS: Magnesium Oxide 400 MG TABLET PO (07:22)
[2022-10-01] MEDS: Folic Acid 1 MG TABLET PO (07:22)
[2022-10-01 08:00] VITALS: BP 110/70; PULSE 68; RESP 18; TEMP 36.4; O2SAT 96
[2022-10-01] MEDS: Gabapentin 100 MG CAPSULE PO (08:44)
[2022-10-01] MEDS: Potassium Chloride Packet 20 MEQ PACKET 40 MEQ PO ×2 (08:44→10:42)
--- NOTE | 2022-10-01 11:44 | P.DS_ITS ---
DS: Providers Provider Date of Service: 10/01/22 Date of admission: 09/29/22 12:22 Primary care physician: NANCY Moreno DS: Diagnosis Discharge Diagnosis (1) Hypokalemia: Status: Acute (2) Hypomagnesemia: Status: Acute (3) Neuropathy: Status: Acute (4) Elevated liver enzymes: Status: Acute (5) Electrolyte imbalance: Status: Acute DS: Summary Hospital Course Hospital Course: Admission note HPI Pt is a 52-year-old male with a PMH significant for?asthma, alcohol use disord er, chronic pancreatitis, and chronic back pain with degenerative disc disease and nerve root compression who presents to the ED with?numbness and tingling in extremities bilaterally since yesterday.? Patient was walking his dog when he began feeling numbness and tingling in his feet and fingers bilaterally.? Patient notes that he has chronic lower back pain with severe L5-S1 lumbar degenerative disc disease and left L5 severe foraminal stenosis and plans on getting lumbar fusion surgery in October.? Has thus had limited mobility and strength for the past year plus.? Patient initially thought that he ?over did it? with exercise and walking the dog.? However, after resting numbness and tingling did not resolve.? Patient awoke this morning with persistent numbness and tingling in his extremities which prompted his visit to the emergency department.? Of note, patient has a long history of alcohol use disorder and reports previously drinking 5 nips per day.? Patient states he has not had a drink for the past 10 days, which is the longest period of sobriety he has had for the past 15 years.? He is a current everyday half pack smoker with chronic shortness of breath at baseline.? Has chronic alcoholic pancreatitis and reports chronic left-sided abdominal pain at baseline.? Patient states that he did have a recent week-long bout of diarrhea that ended 4-5 days ago.? Reports was mild with 2-3 episodes of diarrhea per day.? Patient and his are currently homeless and living out of their car.? They have limited access to food and nutrition. In the ED vital signs are stable. Labs were significant for initial potassium of 2.8 with repeat 2.6, magnesium 1.5, bilirubin 5.7, AST 60, alk-phos 122, H&H 12.0/35.4, MCV 105.4. URQ ultrasound pending. Pt was treated with potassium cholirde 60 meq po x2 doses, potassium chloride 10 meq IV x 2 doses, and magnesium oxide 800mg po. Pt will be admitted to the hospital for symptomatic hypokalemia requiring IV replenishment and close monitoring. Hospital course Admitted for symptomatic Hypokalemia likely secondary to GI losses d/t diarrhea and poor nutrition. replaced with PO potassium with good response. Follow BMP as outpatient. Hypomagnesemia was also corrected with IV and PO replacement with good result. to continue Mg supplement as outpatient. Has history of Alcohol use disorder with evidence of Hyperbilirubinemia which trended down during hospital stay as Ultrasound of abdomen showing chronic liver disease. URQ ultrasound also showing?Possible right hepatic hemangioma measuring 1.2 x 0.9 x 1.0 cm. MRI abdomen may be considered for further characterization as outpatient. States last drink 10 days ago, longest period of sobriety in 15 years. encouraged for complete abstinence from alcohol. We advise you complete abstinence from alcohol Start Folic acid, Magnesium supplement Start Gabapentin for neuropathy Follow up with PCP after repeating blood work next week and for MRI abdomen for further characterization of liver cyst as outpatient. Time Spent with Patient Time attestation: Total time managing care of this patient today ____ minutes. Discharge coordination time: Greater than 30 minutes Quality: Safe Use of Opioids Does Pt have an Active Cancer Diagnosis on the Problem List?: No Quality: Stroke Does the patient have a stroke diagnosis?: No Physical Exam Vital Signs: Vital Signs: Last Vital Signs Temp 97.6 F 10/01/22 08:00 Pulse 68 10/01/22 08:00 Resp 18 10/01/22 08:00 BP 110/70 10/01/22 08:00 Pulse Ox 96 10/01/22 08:00 O2 Del Method Room Air 10/01/22 08:00 BMI result Body Mass Index 25.8 Const: Other: Constitutional : Awake, interactive, not in distress Neck : Normal inspection, Supple Cardiovascular : RRR, no JVP, no lower extremity edema Respiratory : good bilateral air entry, no crackles, wheezes or rhonchi Gastrointestinal: soft, lax, Normal bowel sounds, Non tender Skin : Warm, Dry Neurological : Alert & oriented x3, No focal deficit , CN 2-12 within normal DS: Data Data Completed and Pending Completed studies during hospitalization [Text1]: Procedures Detoxification Services for Substance Abuse Treatment (08/13/20) Inspection of Upper Intestinal Tract, Via Natural or Artificial Opening Endoscopic (08/13/20) Labs on day of discharge: Laboratory Results - last 24 hr 10/01/22 05:48 Sodium 139 Potassium 3.0 L Chloride 102 Carbon Dioxide 27 Anion Gap 13 BUN 3 L Creatinine 0.63 Estim Creat Clear Calc 140.0 Estimated GFR > 60 Random Glucose 92 Calcium 9.1 Imaging US - abdomen: Radiologist's impression: ITS Impressions Abdomen Ultrasound 09/29/22 12:22 IMPRESSION: Hepatomegaly. Chronic liver disease. Small ascites. Possible right hepatic hemangioma measuring 1.2 x 0.9 x 1.0 cm. MRI abdomen may be considered for further characterization. Sludge and possible stones in the gallbladder. No sonographic evidence of acute cholecystitis. Discharge Plan Discharge Anticipated Discharge Date/Time: 10/01/22 11:41 Patient Disposition: Home, Self-Care Discharge Diagnosis: Hypokalemia Hypomagnesemia Referrals: Gulshan Chanel [employer] OFFICE MANAGER- [Primary Care Provider] - 1 Week Discharge Medications: New magnesium oxide 400 mg (241.3 mg magnesium) Tablet 400 mg PO DAILY Qty: 30 0RF folic acid 1 mg Tablet 1 mg PO DAILY Qty: 30 0RF gabapentin 100 mg Capsule 100 mg PO BEDTIME Qty: 30 0RF Continued omeprazole 20 mg capsule,delayed release(DR/EC) 20 mg PO DAILY 90 Days Qty: 90 0RF albuterol sulfate 90 mcg/actuation HFA aerosol inhaler 2 inh inhalation QID PRN (Reason: shortness of breath or wheezing) 30 Days Qty: 8.5 3RF ibuprofen 800 mg tablet 800 mg PO Q8H PRN (Reason: pain) 20 Days Qty: 60 0RF lidocaine 4 % Adhesive Patch,Medicated 1 patch TOPICAL DAILY PRN (Reason: Pain) nitrofurantoin monohyd/m-cryst 100 mg capsule 1 cap PO BID Discharge Orders: Discharge Order (Routine); Ordered 10/01/22 Ordered By: Maya Alvarado Diet: Advance to usual diet Activity on Discharge: As tolerated Stand Alone Forms: Patient Portal Discharge page Other Ambulatory Orders: Basic Metabolic Panel (Routine) Timeframe: 5 Days Facility: [facility] - Location: Laboratory Ordered By: Khaled Abuhashmeh Care Plan Goals: Read below Health Concerns: Read below Plan of Treatment: Read below Assessment: We advise you complete abstinence from alcohol Start Folic acid, Magnesium supplement Start Gabapentin for neuropathy Follow up with PCP after repeating blood work next week and for MRI abdomen for further characterization of liver cyst as outpatient.
--- NOTE | 2022-10-01 12:38 | MHC.CM.PN ---
Patient is discharged today to home self care. Transportation has been booked with the [facility] 2pm brain picker. He will be brought to his car; which is his home. It is parked in a lot @ [address] [place].
--- NOTE | 2022-10-03 09:33 | P.CDIM_ITS ---
PROVIDER RESPONSE TEXT: To clarify, the appropriate diagnosis supported by the clinical indicators: Peripheral neuropathy QUERY TEXT: PHYSICIAN'S DOCUMENTATION REQUEST Date of Query: 10/01/2022 08:16 AM EDT Patient Name: Tho Miller Admit Date: 09/29/2022 Dear Maya Alvarado, A review of the medical record indicates additional documentation may be needed. Please review below and update the documentation accordingly. Clinical Indicators: ED: patient reports chronic lower extremity weakness Clinical impression: neuropathy DDx: neuropathy due to alcohol use Based on the above, could you clarify the appropriate diagnosis, if significant, that supports the ab ove abnormalities and additional evaluation, monitoring, and/or treatment rendered: Peripheral neuropathy Polyneuropathy Autonomic neuropathy Mononeuropathy Other Other (explain)Clinically unable to determine (explain)Thank you, Belinda Barajas, CCS, CDIS Use of terms such as suspected, likely, concern for, or probable (associated with a specific diagnosi s that is being evaluated, monitored, or treated as if it exists) are acceptable and can be coded in the inpatient se tting, when documented at the time of discharge. Please use your independent medical judgment in providing your response. THIS QUERY IS PART OF THE PERMANENT MEDICAL RECORD
== END 2022-10-01 14:33 | disposition home or self-care (01) | DRG 425 ==
LOC: HO.ED 10:54 → HO.EDOVER 12:28 → HO.S3 18:10
PROVIDERS: Physician Assistant; Admitting Provider Student in an Organized Health Care Education/Training Program; Emergency Provider Emergency Medicine; PCP Nurse Practitioner Family; Visit Provider Student in an Organized Health Care Education/Training Program
DX: E87.6 Hypokalemia (principal); G62.1 Alcoholic polyneuropathy; N39.0 Urinary tract infection, site not specified; D53.9 Nutritional anemia, unspecified; K86.0 Alcohol-induced chronic pancreatitis; M51.37 Other intervertebral disc degeneration, lumbosacral region; K76.9 Liver disease, unspecified; D18.09 Hemangioma of other sites; F10.11 Alcohol abuse, in remission; M48.07 Spinal stenosis, lumbosacral region; G62.9 Polyneuropathy, unspecified; J45.30 Mild persistent asthma, uncomplicated; E83.42 Hypomagnesemia; Z59.02 Unsheltered homelessness; Z79.899 Other long term (current) drug therapy
CPT/HCPCS: 36415; 76705; 80048; 80053; 80076; 80307; 81001; 81003; 82607; 82746; 83735; 84132; 84443; 85025; 85027; 87086; 99285; J1650

== ENCOUNTER → 2022-09-29 12:22 | Outpatient (BNV) | payer OTHER, SELFPAY | PROVIDERS: Admitting Provider Student in an Organized Health Care Education/Training Program; Emergency Provider Emergency Medicine; PCP Nurse Practitioner Family; Visit Provider Student in an Organized Health Care Education/Training Program | DX: E87.6 Hypokalemia (principal); G62.9 Polyneuropathy, unspecified; E83.42 Hypomagnesemia | CPT/HCPCS: 99223; 99232; 99239 ==

== ENCOUNTER 2022-10-07 15:53 | Emergency (ER) | payer OTHER, SELFPAY ==
[2022-10-07 15:58] VITALS: BP 111/77; BP 130/90; PULSE 77; PULSE 99; RESP 18; TEMP 36.6; O2SAT 95; O2SAT 96; BMI 25.0
[2022-10-07 16:08] VITALS: PULSE 84; RESP 19; O2SAT 97
--- NOTE | 2022-10-07 17:43 | ECG_ITS ---
Test Reason : ETOH Blood Pressure : / mmHG Vent. Rate : 073 BPM Atrial Rate : 073 BPM P-R Int : 114 ms QRS Dur : 088 ms QT Int : 458 ms P-R-T Axes : 026 004 182 degrees QTc Int : 504 ms Normal sinus rhythm Low voltage QRS T wave abnormality, consider anterior ischemia Prolonged QT Abnormal ECG When compared with ECG of 05-APR-2022 08:19, Nonspecific T wave abnormality now evident in Inferior leads T wave inversion more evident in Anterior leads Referred By: Leobardo Rhodes Electronically Signed By:Bennie De Paz
--- NOTE | 2022-10-07 17:46 | ED_ITS ---
HPI - General Adult General Chief complaint: Back Pain/Injury Stated complaint: ETOH Time Seen by Provider: 10/07/22 17:02 Source: patient Mode of arrival: ambulatory Limitations: other (acute alcohol intoxication) History of Present Illness HPI narrative: 52 year old male with PMH of pancreatitis, electrolyte imbalance, and lumbar degenerative disc disease presenting with a chief complaint of my arms and legs are numb He reports chronic progressive numbness and tingling to both his bilateral upper and lower extremities over the past few months, but worse over the last few days He also reports chronic lower back pain and intermittent nausea He has surgery scheduled for 11/01/22 for his degenerative disc disease The patient was admitted to [facility] for elevated liver enzymes and hypokalemia on 09/29/22 The patient admits to drinking 4-5 shots daily and reports having 1 shot before he came in today Denies any bladder or bowel incontinence Onset (ago): day(s) Location: upper extremity and lower extremity Related Data Home Medications Medication Instructions Recorded Confirmed lidocaine 4 % topical patch 1 patch topical DAILY PRN Pain 09/22/22 09/29/22 nitrofurantoin 1 cap PO BID 09/29/22 09/29/22 monohydrate/macrocrystals 100 mg capsule Previous Rx's Medication Instructions Recorded albuterol sulfate 90 mcg/actuation 2 inh inhalation QID PRN shortness 07/08/22 aerosol inhaler of breath or wheezing 30 days #8.5 grams ibuprofen 800 mg tablet 800 mg PO Q8H PRN pain 20 days #60 08/11/22 tabs folic acid 1 mg tablet 1 mg PO DAILY #30 tabs 10/01/22 gabapentin 100 mg capsule 100 mg PO BEDTIME #30 caps 10/01/22 magnesium oxide 400 mg (241.3 mg 400 mg PO DAILY #30 tabs 10/01/22 magnesium) tablet omeprazole 20 mg capsule,delayed 20 mg PO DAILY 90 days #90 caps 10/05/22 release lidocaine 5 % topical patch 1 patch topical DAILY #15 ea 10/07/22 Allergies Allergy/AdvReac Type Severity Reaction Status Date / Time No Known Allergies Allergy Verified 08/25/22 14:53 Review of Systems Constitutional: Constitutional: Reports as per HPI and Denies fever(s) Cardiovascular: Cardiovascular: Denies chest pain and Denies dyspnea Respiratory: Respiratory: Denies cough and Denies dyspnea Gastrointestinal: Gastrointestinal: Denies constipation and Denies vomiting Musculoskeletal: Musculoskeletal: Reports back pain, Reports numbness and Reports tingling Comments: Patient reports numbness and tingling in his bilateral upper and lower extremities Neurologic: Reports numbness, Reports tingling and Reports paresthesias PMFSH Past Medical History Medical History Alcohol abuse Asthma Autoimmune disease Depression Lyme disease Pancreatitis Surgical History No pertinent past surgical history Family History Family History Father Heart attack Mother No problems noted. Sister No problems noted. Daughter No problems noted. Social History Social History Household Members: Spouse Housing: Other Housing Other:: patient states he lives in a car with his Do you presently have visiting nurse or other home services: No Alcohol intake: current Alcohol intake frequency: 3 or more drinks per day Alcohol type: hard liquor Patient Tobacco Use Status: Current everyday Tobacco user Tobacco use type: Cigarette Cigarette Packs Per Day: 1 Cigarettes Per Day: 20.0 Years Smoked: 41 Smoked in Last 30 Days: Yes e-Cigarette/Vaping Use: Never Used Second Hand Smoke Exposure: Yes Use of substances other than those prescribed or required for medical reasons: No Substance Use Type: Marijuana Advance Directives: Yes Advance Directives on File: Yes Advance Directives Date on File: 09/29/22 service: Yes Current occupational status: unemployed Cognitive needs: No Hearing needs: No Vision needs: No Physical Exam ED Vital Signs: Vital Signs - 24 hr 10/07/22 15:58 10/07/22 16:08 10/07/22 19:38 Temperature 97.8 F 98.2 F Pulse Rate 77 84 89 Respiratory Rate 18 19 12 Blood Pressure 111/77 93/67 Pulse Oximetry 96 97 14 L Oxygen Delivery Method Room Air Room Air Room Air BMI result Body Mass Index 25.0 Const General: comfortable, no acute distress, alert and awake Nutritional Appearance: well nourished Orientation/consciousness: patient oriented x3 HENMT Head: Yes normocephalic and Yes atraumatic Eyes Eyelids: Yes eyelids normal Conjunctivae: conjunctivae normal Sclerae: sclerae normal Corneas: corneas normal Pupils: Equal, round and reactive pupils present EOM: EOMs intact bilaterally Neck Neck: Yes full ROM Skin General skin exam: no rashes or lesions noted and elasticity normal Neuro General: patient oriented x3 Cranial nerves: Yes Equal, round and reactive pupils present and Yes Bilaterally intact EOM present Motor exam (neuro): strength not 5/5 throughout (Strength 4-5 to all major muscle groups bilaterally) Extrem Other: Moving all extremities well without any obvious deformities Course Reevaluation(s) Reevaluation #1: Patient's workup largely unremarkable, his potassium is 4.0, within normal limits. He is stable for discharge to follow-up with his outpatient neurosurgeon and will discharge home with lidocaine patches Time: : Medications Administered Discontinued Medications Generic Name Dose Route Start Last Admin Trade Name Lisette PRN Reason Stop Dose Admin Acetaminophen 650 mg 10/07/22 17:44 10/07/22 17:49 Acetaminophen 325 Mg Tablet PO 10/07/22 17:45 650 mg ONCE ONE Administration Lidocaine 1 patch 10/07/22 17:44 10/07/22 17:49 Lidocaine 4 % Patch Adh..Patch TRANSDERMA 10/07/22 17:45 1 patch ONCE ONE Administration Protocol Medical Decision Making Medical Decision Making [facility] Narrative: 52-year-old male presents for evaluation of multiple complaints. He complains of back pain which is chronic but he reports worsening. He had an MRI of the lumbar spine approximately 2 months ago showing moderate to severe L4-L5 and L5- S1 disc disease. He is scheduled for Neurosurgery in 11/01/2022. The patient also complains of numbness and tingling to his upper and lower extremities. Given that his upper extremities are affected with the paresthesias, this may be related to electrolyte abnormalities as his spine disease should not affect his upper extremities. Will check basic labs including electrolytes. Patient's back pain is treated with Tylenol and lidocaine patches. No warning signs for cauda equina syndrome Differential Diagnosis lumbosacral radiculopathy sciatica electrolyte imbalance chronic back pain acute alcohol intoxication Hypokalemia Lab Data [facility] Lab Attestation statement: I reviewed the patient's lab results. No leukocytosis, mild anemia with a hemoglobin 12.6 and hematocrit 38.2 possible related to liver disease. Electrolytes within normal limits. 10/07/22 18:17 10/07/22 18:17 Labs: Lab Results 10/07/22 10/07/22 Range/Units 18:17 18:17 WBC 10.3 (4.8-10.8) X10*3/uL RBC 3.59 L (4.60-5.80) X10*6/uL Hgb 12.6 L (14.0-18.0) g/dl Hct 38.2 L (42.0-52.0) % MCV 106.4 H (80.0-98.0) fL MCH 35.1 H (27.0-33.0) pg MCHC 33.0 (31.0-36.0) g/dl RDW 13.5 (11.0-16.0) % Plt Count 257 D (160-400) X10*3/uL MPV 10.0 (9.4-12.4) fL Immature Gran % (Auto) 0.3 (0.0-0.4) % Neut % (Auto) 56.2 (45-73) % Lymph % (Auto) 35.2 (20-40) % [place] % (Auto) 5.6 (2-11) % Eos % (Auto) 1.1 (0-4) % Baso % (Auto) 1.6 (0-2) % Lymph # (Auto) 3.6 (1.2-4.9) X10*3/uL [place] # (Auto) 0.6 (0.1-1.2) X10*3/uL Eos # (Auto) 0.1 (0.0-0.4) X10*3/uL Baso # (Auto) 0.2 (0.0-0.2) X10*3/uL Abs Immat Gran (auto) 0.03 (0.00-0.03) X10*3/uL Absolute Neuts (auto) 5.8 (2.0-8.3) x10*3/uL Absolute Nucleated RBC 0.000 (0.0-0.012) X10*3/uL Nucleated RBC % (auto) 0.0 (0.0-0.2) /100WBC Sodium 144 (135-145) mmol/L Potassium 4.1 D (3.3-5.1) mmol/L Chloride 105 (96-108) mmol/L Carbon Dioxide 28 (22-29) mmol/L Anion Gap 15 (12-20) BUN 7 L (9-16) mg/dL Creatinine 0.55 (0.5-1.4) mg/dL Estim Creat Clear Calc 160.3 Estimated GFR > 60 Random Glucose 82 (60-115) mg/dL Calcium 8.6 (8.4-10.2) mg/dL Magnesium 1.6 (1.6-2.6) mg/dL Total Bilirubin 1.6 H (0.0-1.0) mg/dL AST 112 H (5-37) U/L ALT 28 (0-40) U/L Alkaline Phosphatase 156 H (39-117) U/L Total Protein 6.7 (6.5-8.0) g/dL Albumin 3.1 L (3.5-5.0) g/dL Lipase 36 (8-78) U/L Discharge Plan Discharge Clinical Impression: Back pain, Acute alcohol intoxication Patient Disposition: Home, Self-Care Instructions: Abuse of Alcohol (ED), Back Pain (ED) Additional Instructions: Your potassium was normal today at 4.1. Avoid excessive consumption of alcohol Follow-up with her outpatient providers You may use lidocaine patches, once daily for your chronic back pain Prescriptions: New lidocaine 5 % adhesive patch,medicated 1 patch topical DAILY Qty: 15 0RF Rx Instructions: leave on most painful area for up to 12 hrs No Action albuterol sulfate 90 mcg/actuation HFA aerosol inhaler 2 inh inhalation QID PRN (Reason: shortness of breath or wheezing) 30 Days Qty: 8.5 3RF ibuprofen 800 mg tablet 800 mg PO Q8H PRN (Reason: pain) 20 Days Qty: 60 0RF omeprazole 20 mg capsule,delayed release(DR/EC) 20 mg PO DAILY 90 Days Qty: 90 1RF lidocaine 4 % Adhesive Patch,Medicated 1 patch TOPICAL DAILY PRN (Reason: Pain) nitrofurantoin monohyd/m-cryst 100 mg capsule 1 cap PO BID magnesium oxide 400 mg (241.3 mg magnesium) Tablet 400 mg PO DAILY Qty: 30 0RF folic acid 1 mg Tablet 1 mg PO DAILY Qty: 30 0RF gabapentin 100 mg Capsule 100 mg PO BEDTIME Qty: 30 0RF
[2022-10-07] MEDS: Lidocaine 4 % Patch ADH..PATCH 1 PATCH TRANSDERMA (17:49)
[2022-10-07] MEDS: Acetaminophen 325 MG TABLET 650 MG PO (17:49)
[2022-10-07 18:22] LABS: MANUAL DIFF FLAG NO
[2022-10-07 18:27] LABS: Basophils Absolute Auto 0.2 X10*3/uL (0.0-0.2); Basophils Percent Auto 1.6 % (0-2); Eosinophils Absolute Auto 0.1 X10*3/uL (0.0-0.4); Eosinophils Percent Auto 1.1 % (0-4); Hematocrit 38.2 % (42.0-52.0); Hemoglobin 12.6 g/dl (14.0-18.0); Imm Gran Abs Auto 0.03 X10*3/uL (0.00-0.03); Imm Gran Pct Auto 0.3 % (0.0-0.4); Lymphocytes Absolute Auto 3.6 X10*3/uL (1.2-4.9); Lymphocytes Percent Auto 35.2 % (20-40); Mean Corpuscular Hemoglobin 35.1 pg (27.0-33.0); Mean Corpuscular Volume 106.4 fL (80.0-98.0); Monocytes Absolute Auto 0.6 X10*3/uL (0.1-1.2); Monocytes Percent Auto 5.6 % (2-11); Neutrophils Absolute Auto 5.8 x10*3/uL (2.0-8.3); Neutrophils Percent Auto 56.2 % (45-73); Platelet Count 257 X10*3/uL (160-400); Red Blood Count 3.59 X10*6/uL (4.60-5.80); Red Cell Distribution Width 13.5 % (11.0-16.0); White Blood Count 10.3 X10*3/uL (4.8-10.8)
[2022-10-07 18:42] LABS: Alanine Aminotransferase 28 U/L (0-40); Albumin Level 3.1 g/dL (3.5-5.0); Alkaline Phosphatase 156 U/L (39-117); Anion Gap 15 (12-20); Aspartate Amino Transferase 112 U/L (5-37); Bilirubin Total 1.6 mg/dL (0.0-1.0); Blood Urea Nitrogen 7 mg/dL (9-16); Calcium 8.6 mg/dL (8.4-10.2); Carbon Dioxide 28 mmol/L (22-29); Chloride 105 mmol/L (96-108); Creatinine Clr Calc Pharmacy 160.3; Estimated Glomerular Filt Rate > 60; Glucose Random 82 mg/dL (60-115); Lipase 36 U/L (8-78); Magnesium 1.6 mg/dL (1.6-2.6); Potassium 4.1 mmol/L (3.3-5.1); Sodium 144 mmol/L (135-145); Total Protein 6.7 g/dL (6.5-8.0)
--- NOTE | 2022-10-07 19:33 | PC.NURSE ---
assumed care, pt visibly intoxicated and raising voice in room, stating he is hungry and needs a hot meal and that no one has attended to him during the duration of his visit. sandwich provided, educated on hospital process.
[2022-10-07 19:38] VITALS: BP 93/67; PULSE 89; RESP 12; TEMP 36.8; O2SAT 14
== END 2022-10-07 21:08 | disposition home or self-care (01) ==
PROVIDERS: Physician Assistant; Emergency Provider Emergency Medicine; PCP Nurse Practitioner Family
DX: G89.29 Other chronic pain (principal); M54.50 Low back pain, unspecified; F10.220 Alcohol dependence with intoxication, uncomplicated; Y90.9 Presence of alcohol in blood, level not specified; F17.210 Nicotine dependence, cigarettes, uncomplicated; F12.90 Cannabis use, unspecified, uncomplicated; K70.10 Alcoholic hepatitis without ascites; M51.36 Other intervertebral disc degeneration, lumbar region; Z79.899 Other long term (current) drug therapy
CPT/HCPCS: 36415; 80053; 83690; 83735; 85025; 93005; 99283; 99284

== ENCOUNTER → 2022-10-07 17:43 | Outpatient (BNV) | payer OTHER, SELFPAY | PROVIDERS: Emergency Provider Emergency Medicine; PCP Nurse Practitioner Family; Visit Provider Internal Medicine Cardiovascular Disease | DX: I45.81 Long QT syndrome (principal) | CPT/HCPCS: 93010 ==

== ENCOUNTER 2022-10-14 12:22 | Emergency (ER) | payer OTHER, SELFPAY ==
[2022-10-14 12:28] VITALS: BP 110/78; BP 114/76; PULSE 85; PULSE 89; RESP 18; TEMP 37.2; O2SAT 94; O2SAT 98; BMI 26.5
--- NOTE | 2022-10-14 12:37 | PC.NURSE ---
Pt is resting quitely, alert and oriented, VSS, pt states it has been over a month with his back pain, and he cant take it anymore. Pt was seen about 2 days ago here for his chronic back pain. Stated he doesn't care if he , but doesn't want too. Pt stated he likes to be called Dangelo. TM
--- NOTE | 2022-10-14 14:15 | PC.NURSE ---
Patients mom called stating that he wanted to say, Good bye. Evelyn Miller (Mother) [phone] 89 years old. She states he needs to be evaluated for depression.
[2022-10-14 16:58] VITALS: BP 98/68; PULSE 85; RESP 17; TEMP 36.4; O2SAT 95
--- NOTE | 2022-10-14 18:10 | ED_ITS ---
HPI - General Adult General Chief complaint: General Medical Stated complaint: BACK PAIN,SEEN RECENTLY,ETOH USE PER EMS Time Seen by Provider: 10/14/22 17:45 Source: patient Mode of arrival: EMS Limitations: no limitations History of Present Illness HPI narrative: Patient comes to the emergency room complaining of alcohol intoxication and chronic back pain. Patient states that he has numbness and tingling in both upper and lower extremities for months. Patient denies hitting his head, no loss of consciousness. Related Data Home Medications Medication Instructions Recorded Confirmed lidocaine 4 % topical patch 1 patch topical DAILY PRN Pain 09/22/22 09/29/22 nitrofurantoin 1 cap PO BID 09/29/22 09/29/22 monohydrate/macrocrystals 100 mg capsule Previous Rx's Medication Instructions Recorded albuterol sulfate 90 mcg/actuation 2 inh inhalation QID PRN shortness 07/08/22 aerosol inhaler of breath or wheezing 30 days #8.5 grams ibuprofen 800 mg tablet 800 mg PO Q8H PRN pain 20 days #60 08/11/22 tabs folic acid 1 mg tablet 1 mg PO DAILY #30 tabs 10/01/22 gabapentin 100 mg capsule 100 mg PO BEDTIME #30 caps 10/01/22 magnesium oxide 400 mg (241.3 mg 400 mg PO DAILY #30 tabs 10/01/22 magnesium) tablet omeprazole 20 mg capsule,delayed 20 mg PO DAILY 90 days #90 caps 10/05/22 release lidocaine 5 % topical patch 1 patch topical DAILY #15 ea 10/07/22 Allergies Allergy/AdvReac Type Severity Reaction Status Date / Time No Known Allergies Allergy Verified 08/25/22 14:53 Review of Systems Review of Systems: Constitutional : No Weight loss, No Fever, No Chills, No Night Sweats, No Fatigue, No Malaise ENT/Mouth : No Hearing loss, No Ear Pain, No Nasal Congestion, No Sinus Pain, No Hoarseness, No sore throat, No Rhinorrhea, No Swallowing Difficulty Eyes: No Eye Pain, No Swelling, No Redness, No Foreign Body, No Discharge, No Vision Changes Cardiovascular : No Chest Pain, No SOB, No Dyspnea on Exertion, No Orthopnea, No Edema, No Palpitations Respiratory : No Cough, No Sputum, No Wheezing, No Smoke Exposure, No Dyspnea Gastrointestinal : No Nausea, No Vomiting, No Diarrhea, No Constipation, No abdominal Pain, No Hematochezia, No Melena Genitourinary : no irregular bleeding, No Dysuria, No Urinary Frequency, No Hematuria, No Urinary Incontinence, No Urgency, No Flank Pain, No Urinary Flow Changes, No Hesitancy Musculoskeletal : Chronic back pain,No Myalgias, No Joint Swelling Skin : No Skin Lesions, No rash Neuro : No Weakness, No Numbness, chronic paresthesias in both arms and legs, No Loss of Consciousness, No Dizziness, No Headache Psych : No Anxiety/Panic, No Depression, No SI/HI/AH/VH, No Social Issues, Heme/Lymph: No Bruising, No Bleeding,No Lymphadenopathy Endocrine : No Polyuria, No Polydipsia, No Temperature Intolerance [facility] Past Medical History Medical History Alcohol abuse Asthma Autoimmune disease Depression Elevated liver enzymes Lyme disease Neuropathy Pancreatitis Surgical History No pertinent past surgical history Family History Family History Father Heart attack Mother No problems noted. Sister No problems noted. Daughter No problems noted. Social History Social History Household Members: Spouse Housing: Other Housing Other:: patient states he lives in a car with his Do you presently have visiting nurse or other home services: No Alcohol intake: current Alcohol intake frequency: 3 or more drinks per day Alcohol type: hard liquor Patient Tobacco Use Status: Current everyday Tobacco user Tobacco use type: Cigarette Cigarette Packs Per Day: 1 Cigarettes Per Day: 20.0 Years Smoked: 41 Smoked in Last 30 Days: Yes e-Cigarette/Vaping Use: Never Used Second Hand Smoke Exposure: Yes Use of substances other than those prescribed or required for medical reasons: No Substance Use Type: Marijuana Advance Directives: Yes Advance Directives on File: Yes Advance Directives Date on File: 09/29/22 service: Yes Current occupational status: unemployed Cognitive needs: No Hearing needs: No Vision needs: No Physical Exam ED Vital Signs: Vital Signs - 24 hr 10/14/22 12:28 10/14/22 16:58 Temperature 98.9 F 97.5 F Pulse Rate 85 85 Respiratory Rate 18 17 Blood Pressure 114/76 98/68 Pulse Oximetry 94 95 Oxygen Delivery Method Room Air Room Air BMI result Body Mass Index 26.5 Const Other: Appearance: Alert. Oriented X3. No acute distress. Intoxicated Eyes: Pupils equal, round and reactive to light. ENT: Pharynx normal. Poor dentition Neck: Normal inspection. Neck supple. No lymph nodes noted. No crepitus CVS: Normal heart rate and rhythm. Pulses normal. Normal S1 and S2 Respiratory: No respiratory distress. Breath sounds normal. No Wheezing. No rales Abdomen: Soft and nontender. No rigidity. No distention. Skin: Skin warm and dry. Normal skin color. Normal skin turgor. Extremities: No lower extremity edema. No Lacerations. No Rash Neuro: Oriented X 3. No motor deficit. No sensory deficit. Moving all extremities. No slurred speech. CN 2 through 12 grossly intact Psych: calm, cooperative, normal affect Medical Decision Making Medical Decision Making MDM Narrative: -patient had an MRI done approximately 2 months ago showing a moderate L4-L5 foraminal stenosis and moderate to severe L5-S1 stenosis. Scheduled to see Neurosurgery on 11/01/2022. -discussed with the patient a chronic paresthesias may be secondary the disc disease especially in the lower extremities. The upper extremities and lower extremities could be explained if there is a vitamin deficiency due to alcohol abuse. Patient became very upset that we talked about his alcoholism. Patient states he wants hear nothing about it. Discussed with the patient to follow up with his primary care physician a neurosurgeon -patient denies any urinary/fecal incontinence/retention, patient has been ambulatory, cauda equina not suspected -plan: Metabolize to freedom and discharge - Differential Diagnosis Differential Diagnoses: The differential diagnosis associated with the presentation includes (Disc disease, alcohol intoxication, vitamin deficiency) Admission/Observation Consideration of admission/observation: Escalation of care including admission/observation considered (Patient and the physician observation until sober) External Record Review External record reviewed: Prior outpatient radiology Tests considered The following testing was considered but not selected: Vitamin-B levels were considered. Patient declined blood work. Prescription Management I considered prescription management with: Other (I considered giving the patient a prescription for gabapentin. However, patient drinks a lot of alcohol, which could cause him to become very drowsy, have more falls and injuries) Chronic Conditions Patient?s care impacted by: Other (Chronic alcoholism) Discharge Plan Discharge Clinical Impression: Alcohol intoxication, Paresthesias Patient Disposition: Home, Self-Care Instructions: Abuse of Alcohol (ED), Paresthesia (ED) Additional Instructions: Please follow-up with your primary care physician tomorrow. If you have any worsening or new symptoms, please return to the emergency room or call 911 Prescriptions: No Action albuterol sulfate 90 mcg/actuation HFA aerosol inhaler 2 inh inhalation QID PRN (Reason: shortness of breath or wheezing) 30 Days Qty: 8.5 3RF ibuprofen 800 mg tablet 800 mg PO Q8H PRN (Reason: pain) 20 Days Qty: 60 0RF omeprazole 20 mg capsule,delayed release(DR/EC) 20 mg PO DAILY 90 Days Qty: 90 1RF lidocaine 4 % Adhesive Patch,Medicated 1 patch TOPICAL DAILY PRN (Reason: Pain) nitrofurantoin monohyd/m-cryst 100 mg capsule 1 cap PO BID magnesium oxide 400 mg (241.3 mg magnesium) Tablet 400 mg PO DAILY Qty: 30 0RF folic acid 1 mg Tablet 1 mg PO DAILY Qty: 30 0RF gabapentin 100 mg Capsule 100 mg PO BEDTIME Qty: 30 0RF lidocaine 5 % adhesive patch,medicated 1 patch topical DAILY Qty: 15 0RF Rx Instructions: leave on most painful area for up to 12 hrs
== END 2022-10-14 19:33 | disposition home or self-care (01) ==
PROVIDERS: Emergency Provider Emergency Medicine; PCP Nurse Practitioner Family
DX: F10.129 Alcohol abuse with intoxication, unspecified (principal); Y90.8 Blood alcohol level of 240 mg/100 ml or more; M54.50 Low back pain, unspecified; F17.210 Nicotine dependence, cigarettes, uncomplicated; R20.0 Anesthesia of skin; Z79.899 Other long term (current) drug therapy; Z71.6 Tobacco abuse counseling
CPT/HCPCS: 99283; 99284

== ENCOUNTER 2022-10-15 20:32 | Inpatient (IN) | payer OTHER, SELFPAY ==
[2022-10-15 20:43] VITALS: BP 119/81; PULSE 98; RESP 18; TEMP 37.1; O2SAT 95; BMI 26.5
--- NOTE | 2022-10-15 21:04 | ED.GENADULT ---
HPI - General Adult General Chief complaint: ETOH/Substance Use Stated complaint: Back Pain Time Seen by Provider: 10/15/22 21:04 Source: patient and EMS Mode of arrival: EMS Limitations: no limitations History of Present Illness HPI narrative: Patient is a 52 year old assigned male at with a history of alcohol abuse and nerve root compression presenting to the emergency department today with chronic back pain and alcohol consumption. Patient states that he has had a few shots and is still dealing with his chronic back pain. Patient states that he does not want to go into any kind of treatment unless his and dog can come as well. Patient denies any dizziness, lightheadedness, abdominal pain, nausea, vomiting, fever, chills, blurry vision, double vision, loss of vision, chest pain, difficulty breathing, shortness of breath, night sweats, pain with urination, increased urinary frequency, increased urinary urgency, blood in his urine or stool, syncope or a near syncopal episode, recent trauma or falls, bowel incontinence, bladder incontinence, bowel retention, bladder retention, or any other complaints at this time. Relieving factors: none Exacerbating factors: none Associated symptoms: denies other symptoms Treatments prior to arrival: none Related Data Home Medications Medication Instructions Recorded Confirmed lidocaine 4 % topical patch 1 patch topical DAILY PRN Pain 09/22/22 09/29/22 nitrofurantoin 1 cap PO BID 09/29/22 09/29/22 monohydrate/macrocrystals 100 mg capsule Previous Rx's Medication Instructions Recorded albuterol sulfate 90 mcg/actuation 2 inh inhalation QID PRN shortness 07/08/22 aerosol inhaler of breath or wheezing 30 days #8.5 grams folic acid 1 mg tablet 1 mg PO DAILY #30 tabs 10/01/22 gabapentin 100 mg capsule 100 mg PO BEDTIME #30 caps 10/01/22 magnesium oxide 400 mg (241.3 mg 400 mg PO DAILY #30 tabs 10/01/22 magnesium) tablet omeprazole 20 mg capsule,delayed 20 mg PO DAILY 90 days #90 caps 10/05/22 release lidocaine 5 % topical patch 1 patch topical DAILY #15 ea 10/07/22 ibuprofen 800 mg tablet 800 mg PO Q8H PRN pain 20 days #60 10/15/22 tabs Allergies Allergy/AdvReac Type Severity Reaction Status Date / Time No Known Allergies Allergy Verified 08/25/22 14:53 Review of Systems Constitutional: Constitutional: Reports no additional constitutional complaints, Denies chills, Denies fever(s) and Denies night sweats Eyes: Eyes: Reports no additional eye complaints, Denies blurry vision, Denies change in vision, Denies diplopia, Denies eye discharge, Denies loss of vision and Denies eye pain ENT: Denies dizziness Cardiovascular: Cardiovascular: Reports no additional cardiovascular complaints, Denies chest pain, Denies lightheadedness, Denies Loss of Consciousness and Denies dyspnea Respiratory: Respiratory: Reports no additional respiratory complaints and Denies dyspnea Gastrointestinal: Gastrointestinal: Reports no additional gastrointestinal complaints, Denies abdominal pain, Denies melena, Denies hematochezia, Denies change in bowel habits and Denies change in stool character Genitourinary: Genitourinary: Reports no additional male genitourinary complaints, Denies hematuria, Denies oliguria, Denies difficulty urinating, Denies dysuria, Denies urinary frequency, Denies urinary hesitancy, Denies urinary incontinence and Denies urinary urgency Musculoskeletal: Musculoskeletal: Reports no additional musculoskeletal complaints, Reports back pain, Denies numbness and Denies tingling Neurologic: Denies dizziness, Denies loss of vision, Denies numbness and Denies tingling Psychiatric: Psychiatric: Reports no additional psychiatric complaints Endocrine: Endocrine: Reports no additional endocrine complaints Hematologic/Lymphatic: Hematologic/Lymphatic: Reports no additional hematologic/lymphatic complaints Allergic/Immunologic: Allergic/Immunologic: Reports no additional allergic/immunologic complaints [facility] Past Medical History Attestation statement: The following information was validated with the patient. Source: old records reviewed and nursing notes reviewed Medical History Acute alcoholic hepatitis Acute bronchitis Alcohol abuse Alcohol withdrawal Asthma Autoimmune disease COVID-19 virus RNA test result positive at limit of detection Depression Edema Electrolyte imbalance Elevated liver enzymes Lyme disease Neuropathy Pancreatitis Pancreatitis Right hand pain Sciatica Screening PSA (prostate specific antigen) Swelling of both lower extremities Vomiting Weakness Surgical History No pertinent past surgical history Family History Family History Father Heart attack Mother No problems noted. Sister No problems noted. Daughter No problems noted. Social History Social History Household Members: Spouse Housing: Other Housing Other:: patient states he lives in a car with his Do you presently have visiting nurse or other home services: No Alcohol intake: current Alcohol intake frequency: 3 or more drinks per day Alcohol type: hard liquor Patient Tobacco Use Status: Current everyday Tobacco user Tobacco use type: Cigarette Cigarette Packs Per Day: 1 Cigarettes Per Day: 20.0 Years Smoked: 41 e-Cigarette/Vaping Use: Never Used Second Hand Smoke Exposure: Yes Substance Use Type: Marijuana Advance Directives: Yes Advance Directives on File: Yes Advance Directives Date on File: 09/29/22 service: Yes Current occupational status: unemployed Cognitive needs: No Hearing needs: No Vision needs: No Physical Exam ED Vital Signs: Vital Signs - 24 hr 10/15/22 20:43 Temperature 98.8 F Pulse Rate 98 Respiratory Rate 18 Blood Pressure 119/81 Pulse Oximetry 95 Oxygen Delivery Method Room Air BMI result Body Mass Index 26.5 Const General: cooperative, no acute distress, alert and awake Nutritional Appearance: well nourished Orientation/consciousness: patient oriented x3 Limitations: no limitations HENMT Head: Yes normal to inspection and Yes atraumatic Ears: hearing grossly normal bilaterally and external ears normal General nose exam: Normal external nose present, no nasal discharge noted and no epistaxis Face and sinus: Yes normal facial exam, No abrasion and No laceration Mouth: Normal oral and palatal mucosa present, no drooling and no muffled voice Eyes General: appearance normal, both eyes and all related structures Periorbital: periorbital findings normal Eyelids: Yes eyelids normal Conjunctivae: conjunctivae normal Pupils: Equal, round and reactive pupils present EOM: EOMs intact bilaterally Neck Neck: Yes normal visual inspection, Yes full ROM and Yes no lymphadenopathy Chest Chest palpation & inspection: normal inspection of the chest Resp Effort & Inspection: normal respiratory effort and able to speak in complete sentences Auscultation: clear to auscultation bilaterally Cardio Rate: regular rate Rhythm: regular rhythm GI Inspection: Yes normal to inspection General: Yes no CVA tenderness Back/Spine/Pelvis Back: no CVA tenderness Cervical Spine: normal cervical lordosis and cervical ROM normal Thoracic/Lumbar Spine: thoracic and lumbar spine normal to inspection and thoraco-lumbar ROM normal Pelvis: no pain with anterior-posterior compression Neuro General: patient oriented x3 and moves all extremities Cranial nerves: Yes Equal, round and reactive pupils present Cognition (Neuro): normal cognition Motor exam (neuro): 5/5 motor strength present throughout Sensory Exam: Normal double simultaneous stimulation for sensation Coordination: [id number] test normal Extrem General: Yes normal to inspection, Yes full ROM and Yes capillary refill normal Psych Appearance: grossly normal Mental Status: mental status grossly normal Affect: normal affect Attitude: cooperative Thought process: Normal thought process present Thought content: Normal thought content present Insight: Good insight present (Psych) Medical Decision Making Medical Decision Making MDM Narrative: Patient is a 52 year old assigned male at with a history of alcohol abuse and chronic back pain presenting to the emergency department today with acute alcohol intoxication and chronic back pain. Patient's physical exam showed an obviously intoxicated male but was otherwise unremarkable. I explained my physical exam findings to the patient. I answered all questions asked by the patient. The oil recovery unit operator attempted to meet with the patient however, the patient stated that he didn't want to talk about placement at all unless he was guaranteed that his and dog could come. Patient will remain in the department until clinically sober or a sober individual agrees to pick him up and be held responsible for him. Differential Diagnosis Differential Diagnoses: The differential diagnosis associated with the presentation includes Alcohol intoxication Chronic back pain Independent Historian Clinical information obtained from an independent historian. History obtained from or confirmed by: EMS (EMS provided additional history and confirmed the history provided by the patient.) Discharge Plan Discharge Clinical Impression: Alcoholic intoxication, Chronic back pain Patient Disposition: Still a Patient Instructions: Alcohol Intoxication (ED), Chronic Back Pain (DC) Additional Instructions: Please consider quitting alcohol use. Follow up with your primary care provider. Return to the emergency department immediately if your symptoms worsen or if you develop any dizziness, shortness of breath, difficulty breathing, chest pain, blurry vision, loss of vision, nausea, vomiting, abdominal pain, fever, chills, back pain, or any other complaints. Prescriptions: No Action albuterol sulfate 90 mcg/actuation HFA aerosol inhaler 2 inh inhalation QID PRN (Reason: shortness of breath or wheezing) 30 Days Qty: 8.5 3RF omeprazole 20 mg capsule,delayed release(DR/EC) 20 mg PO DAILY 90 Days Qty: 90 1RF ibuprofen 800 mg tablet 800 mg PO Q8H PRN (Reason: pain) 20 Days Qty: 60 0RF lidocaine 4 % Adhesive Patch,Medicated 1 patch TOPICAL DAILY PRN (Reason: Pain) nitrofurantoin monohyd/m-cryst 100 mg capsule 1 cap PO BID magnesium oxide 400 mg (241.3 mg magnesium) Tablet 400 mg PO DAILY Qty: 30 0RF folic acid 1 mg Tablet 1 mg PO DAILY Qty: 30 0RF gabapentin 100 mg Capsule 100 mg PO BEDTIME Qty: 30 0RF lidocaine 5 % adhesive patch,medicated 1 patch topical DAILY Qty: 15 0RF Rx Instructions: leave on most painful area for up to 12 hrs Referrals: [facility] [Provider Group] (Call to establish and follow up with a primary care provider. If you already have a primary care provider, please follow up with them.) [facility], [facility] [Provider Group] (Call to establish and follow up with a primary care provider. If you already have a primary care provider, please follow up with them.) [facility] [Provider Group] (Call to establish and follow up with a primary care provider. If you already have a primary care provider, please follow up with them.) Print Language: Slovenian
--- NOTE | 2022-10-15 21:12 | MHC.RECOVSUP ---
? Reason for consult:ETOH o? Current location:[facility]? o? Identified substance use concern:? -? Support ? Intervention: o? Community resources provided ? Plan:Unknown ? Additional information:RC met with this pt and discussed treatment services, pt declined any services, RC provided business card and recovery resources.
[2022-10-16 02:26] VITALS: BP 101/68; PULSE 80; RESP 16; TEMP 36.6; O2SAT 95
[2022-10-16 07:00] VITALS: BP 112/65; PULSE 87; RESP 17; TEMP 37.3; O2SAT 97
[2022-10-16 09:58] VITALS: BP 104/70; PULSE 80; RESP 15; TEMP 36.6; O2SAT 95
--- NOTE | 2022-10-16 13:52 | PC.NURSE ---
pt restig comfortably, no distress noted, Ambulating with steady gait. having lunch at this time.
[2022-10-16] MEDS: Acetaminophen 325 MG TABLET 975 MG PO (17:36)
[2022-10-16 17:58] VITALS: BP 123/76; PULSE 90; RESP 16; O2SAT 96
--- NOTE | 2022-10-16 17:59 | PC.NURSE ---
pt has been resting in EM throughout the day, and ambulatory independently to the bathroom. Pt recently reports increased pain all over , and was medicated with Tylenol. Pt now reports that they are unable to walk. BREAK AND LOAD OPERATOR aware. PT/CM cheikh ordered. Report given to Boxer, tech will transport patinet.
--- NOTE | 2022-10-16 18:30 | PC.NURSE ---
pt arrived to overflow an began vomiting, c/o severe pain stating pins and needles. ED MD informed
[2022-10-16 18:40] VITALS: BP 121/82; PULSE 96; RESP 18; TEMP 36.4; O2SAT 96
[2022-10-16] MEDS: Ondansetron ODT 4 MG TAB.RAPDIS TRANSLINGU (18:55)
[2022-10-16 19:04] LABS: Basophils Absolute Auto 0.1 X10*3/uL (0.0-0.2); Basophils Percent Auto 0.9 % (0-2); Mean Corpuscular Volume 103.3 fL (80.0-98.0); PLT CLUMP 1; SCAN SMEAR FLAG 1
[2022-10-16 19:05] LABS: Eosinophils Percent Auto 0.2 % (0-4); Hematocrit 34.5 % (42.0-52.0); Hemoglobin 11.9 g/dl (14.0-18.0); Imm Gran Abs Auto 0.02 X10*3/uL (0.00-0.03); Imm Gran Pct Auto 0.2 % (0.0-0.4); Lymphocytes Absolute Auto 1.7 X10*3/uL (1.2-4.9); Lymphocytes Percent Auto 20.7 % (20-40); MANUAL DIFF FLAG SCAN; Mean Corpuscular HGB Conc 34.5 g/dl (31.0-36.0); Mean Corpuscular Hemoglobin 35.6 pg (27.0-33.0); Mean Platelet Volume 10.3 fL (9.4-12.4); Monocytes Absolute Auto 0.8 X10*3/uL (0.1-1.2); Monocytes Percent Auto 9.4 % (2-11); Neutrophils Absolute Auto 5.5 x10*3/uL (2.0-8.3); Neutrophils Percent Auto 68.6 % (45-73); Red Blood Count 3.34 X10*6/uL (4.60-5.80); Red Cell Distribution Width 13.2 % (11.0-16.0)
[2022-10-16 19:19] LABS: Anion Gap 19 (12-20); Blood Urea Nitrogen 6 mg/dL (9-16); Calcium 8.5 mg/dL (8.4-10.2); Carbon Dioxide 23 mmol/L (22-29); Chloride 100 mmol/L (96-108); Creatinine Clr Calc Pharmacy 142.2; Estimated Glomerular Filt Rate > 60; Glucose Random 107 mg/dL (60-115); Potassium 3.2 mmol/L (3.3-5.1); Sodium 139 mmol/L (135-145)
[2022-10-16 19:21] LABS: Platelet Count 122 X10*3/uL (160-400); White Blood Count 8.1 X10*3/uL (4.8-10.8)
[2022-10-16 20:14] LABS: Alanine Aminotransferase 23 U/L (0-40); Alkaline Phosphatase 175 U/L (39-117); Aspartate Amino Transferase 86 U/L (5-37); Bilirubin Direct 1.3 mg/dL (0.0-0.5); Bilirubin Total 2.3 mg/dL (0.0-1.0); Ethanol < 10 mg/dL; Total Protein 6.5 g/dL (6.5-8.0)
[2022-10-16] MEDS: PHENobarbitaL sodium 130 MG/ML IM ONCE 292 MG IM (20:29)
--- NOTE | 2022-10-16 20:30 | PC.NURSE ---
Phenobarbital 1900 dose not administered in overflow as it was not available in pyxsis. Patient transported to main ED due to critical labs results and CIWA 9, N/V, report of pin and needles
[2022-10-16] MEDS: Magnesium Sulfate/H2O 2 GM/50 ML PIGGYBACK IV (20:33)
--- NOTE | 2022-10-16 20:37 | PC.NURSE ---
Report given to Dung Biggs ED RN taking over his care. Patient transported by DIEGO Stevens Tech
[2022-10-16 20:39] VITALS: BP 109/66; PULSE 82; RESP 13; TEMP 37.2; O2SAT 95
--- NOTE | 2022-10-16 20:42 | PC.NURSE ---
Pt arrived from overflow with Mag level 1, Phenobarb and Mag hung as ordered, Ciwa currently 2.
[2022-10-16 20:51] LABS: SLIDE REVIEW VERIFIED
[2022-10-16] MEDS: Thiamine HCL 500 MG in 0.9 % Sodium Chloride 100 ML 210 MG IV (21:46)
[2022-10-16 21:47] LABS: Appearance Urine Cloudy; Color Urine DK YELLOW; Glucose Urine UA Negative (Negative); Leukocyte Esterase Urine Negative (Negative); Nitrite Urine Positive (Negative); UMIC TRIGGER UACC YES; Urine Blood Negative (Negative); Urine Ketones 40 mg/dL (Negative); Urine Protein Trace mg/dL (Neg-Trace)
[2022-10-16] MEDS: Potassium Chloride Packet 20 MEQ PACKET 40 MEQ PO (22:28)
--- NOTE | 2022-10-16 22:46 | PM.IMHP ---
History of Present Illness Date of Service: 10/16/22 Chief Complaint: Paresthesia 52-year-old male with past medical history of sciatica, degenerative disc disease, alcohol abuse, and chronic pancreatitis comes into the hospital complaints of paresthesia in his legs and hands. Patient reports that he has paresthesia from knees down, he has pins and needles, to the point where he is now unable to walk on his feet due to the will pain and the sensation, he is also having the same numbness tingling, in his arms from the elbows down to his fingers. Bilaterally Symptoms started about 1 week ago and are now worsening. He is also reporting alcohol withdrawal at this point. Otherwise denies any chest pain, no shortness of breath, no vision change, no headache, no significant weakness in 1 side of the body, no slurred speech, no facial droop. No abdominal pain nausea or vomiting, no diarrhea constipation, no urinary symptoms and no lower extremity edema On arrival to the ED hemodynamically stable with no significant abnormal vitals Labs are significant for WBC count of 7.1, hemoglobin of 11.9, hematocrit 34.5, MCV of 103.3, potassium of 3.2, magnesium of 1.0, AST of 86, ALT of 23, UA positive for nitrites and WBC no bacteria UDS negative, on alcohol level negative Patient was started on phenobarb lb admitted for further management Review of Systems Review of Systems: Yes all other systems are reviewed and are negative [facility] Medical History Acute alcoholic hepatitis Acute bronchitis Alcohol abuse Alcohol withdrawal Asthma Autoimmune disease COVID-19 virus RNA test result positive at limit of detection Depression Edema Electrolyte imbalance Elevated liver enzymes Lyme disease Neuropathy Pancreatitis Pancreatitis Right hand pain Sciatica Screening PSA (prostate specific antigen) Swelling of both lower extremities Vomiting Weakness Family History Father Heart attack Mother No problems noted. Sister No problems noted. Daughter No problems noted. Surgical History No pertinent past surgical history Social History Household Members: Spouse Housing: Homeless Housing Other:: patient states he lives in a car with his Do you presently have visiting nurse or other home services: No Alcohol intake: current Alcohol intake frequency: 3 or more drinks per day Alcohol type: hard liquor Patient Tobacco Use Status: Current everyday Tobacco user Tobacco use type: Cigarette Cigarette Packs Per Day: 1 Cigarettes Per Day: 20.0 Years Smoked: 41 e-Cigarette/Vaping Use: Never Used Second Hand Smoke Exposure: Yes Use of substances other than those prescribed or required for medical reasons: No Substance Use Type: Marijuana Have you been hit, kicked, punched, or otherwise hurt by someone within the past year? If so, by whom?: No Do you feel safe in your current relationship?: Yes Is there a partner from a previous relationship who is making you feel unsafe now?: No Are you made to feel afraid or neglected: No Advance Directives: Yes Advance Directives on File: Yes Advance Directives Date on File: 09/29/22 Do you have thoughts of harming others: None Do you have a plan to hurt others: No Plan Recently lost weight without trying: No service: Yes Current occupational status: unemployed Cognitive needs: No Hearing needs: No Vision needs: No Meds Allergies Allergy/AdvReac Type Severity Reaction Status Date / Time No Known Allergies Allergy Verified 08/25/22 14:53 Active Medications: Current Medications Acetaminophen (Acetaminophen 325 Mg Tablet) 650 mg PO Q6H PRN PRN Reason: Pain, Mild (Pain Scale 1-3) Docusate Sodium (Docusate Sodium 100 Mg Capsule) 100 mg PO DAILY PRN PRN Reason: Constipation Enoxaparin Sodium (Enoxaparin Sodium 40 Mg/0.4 Ml Syringe) 40 mg SUBCUT Q24H [facility] Folic Acid (Folic Acid 1 Mg Tablet) 1 mg PO DAILY [facility] Ondansetron HCl (Ondansetron Hcl 4 Mg/2 Ml Vial) 4 mg IVPUSH Q8H PRN PRN Reason: Nausea and Vomiting Pharmacy Consult (Consult Rx Etoh Phenob Im/Po) 1 each MISCELLANE ONCE PRN; Protocol PRN Reason: Consult order Phenobarbital (Phenobarbital 15 Mg Tablet) 45 mg PO BID [facility] Stop: 10/18/22 21:01 Phenobarbital (Phenobarbital 30 Mg Tablet) 30 mg PO BID [facility] Stop: 10/20/22 21:01 Phenobarbital (Phenobarbital 15 Mg Tablet) 15 mg PO DAILY [facility] Stop: 10/22/22 09:01 Phenobarbital Sodium (Phenobarbital Sodium 130 Mg/Ml Vial Im Q3hx2) 219 mg IM Q3H [facility] Stop: 10/17/22 03:01 Sodium Chloride (0.9 % Sodium Chloride Flush 3 Ml Syringe) 3 ml IVFLUSH QSHIFT [facility] Thiamine HCl (Thiamine Hcl 100 Mg Tablet) 100 mg PO DAILY [facility] Home Medications Medication Instructions Recorded Confirmed Last Taken Type lidocaine 4 % topical patch 1 patch topical DAILY PRN Pain 09/22/22 10/17/22 Unknown History nitrofurantoin 1 cap PO BID 09/29/22 10/17/22 09/28/22 History monohydrate/macrocrystals 100 mg capsule Physical Exam Vital Signs and Narrative: Vital Signs: Last Vital Signs Temp 98.9 F 10/16/22 20:39 Pulse 82 10/16/22 20:39 Resp 13 10/16/22 20:39 BP 109/66 10/16/22 20:39 Pulse Ox 95 10/16/22 20:39 O2 Del Method Room Air 10/16/22 20:39 BMI result Body Mass Index 26.5 Const: General: cooperative and no acute distress Orientation/consciousness: patient oriented x3 Eyes: General: appearance normal, both eyes and all related structures Resp: Effort & Inspection: normal respiratory effort Auscultation: clear to auscultation bilaterally Cardio: Rate: regular rate Rhythm: regular rhythm GI: Palpation (GI): Soft to palpation Auscultation: normal bowel sounds Skin: General skin exam: no rashes or lesions noted Neuro: Other: Cranial nerves 2-12 intact, strength 5/5 in all extremities, sensation intact General: patient oriented x3 Cognition (Neuro): normal cognition Extrem: General: Yes normal to inspection and Yes no pedal edema Results Labs 10/16/22 18:54 10/16/22 18:54 Labs: Laboratory Results - last 24 hr 10/16/22 10/16/22 10/16/22 18:54 18:54 18:54 MCV 103.3 H MCH 35.6 H MCHC 34.5 RDW 13.2 Plt Count 122 L D MPV 10.3 Immature Gran % (Auto) 0.2 Neut % (Auto) 68.6 Lymph % (Auto) 20.7 [place] % (Auto) 9.4 Eos % (Auto) 0.2 Baso % (Auto) 0.9 Lymph # (Auto) 1.7 [place] # (Auto) 0.8 Eos # (Auto) 0.0 Baso # (Auto) 0.1 Abs Immat Gran (auto) 0.02 Absolute Neuts (auto) 5.5 Absolute Nucleated RBC 0.000 Nucleated RBC % (auto) 0.0 Smear Tech's Comments VERIFIED Anion Gap 19 Estim Creat Clear Calc 142.2 Estimated GFR > 60 Random Glucose 107 Calcium 8.5 Magnesium 1.0 L* Total Bilirubin 2.3 H Direct Bilirubin 1.3 H AST 86 H ALT 23 Alkaline Phosphatase 175 H Total Protein 6.5 Albumin 3.0 L Urine Color Urine Appearance Urine pH Ur Specific [place] Urine Protein Urine Glucose (UA) Urine Ketones Urine Blood Urine Nitrite Ur Leukocyte Esterase Ethyl Alcohol < 10 10/16/22 20:42 MCV MCH MCHC RDW Plt Count MPV Immature Gran % (Auto) Neut % (Auto) Lymph % (Auto) [place] % (Auto) Eos % (Auto) Baso % (Auto) Lymph # (Auto) [place] # (Auto) Eos # (Auto) Baso # (Auto) Abs Immat Gran (auto) Absolute Neuts (auto) Absolute Nucleated RBC Nucleated RBC % (auto) Smear Tech's Comments Anion Gap Estim Creat Clear Calc Estimated GFR Random Glucose Calcium Magnesium Total Bilirubin Direct Bilirubin AST ALT Alkaline Phosphatase Total Protein Albumin Urine Color DK YELLOW Urine Appearance Cloudy Urine pH 6.0 Ur Specific [place] 1.020 Urine Protein Trace Urine Glucose (UA) Negative Urine Ketones 40 Urine Blood Negative Urine Nitrite Positive H Ur Leukocyte Esterase Negative Ethyl Alcohol Assessment and Plan (1) Alcohol withdrawal: Status: Acute (2) Paresthesia and pain of both upper extremities: Status: Acute (3) Hypomagnesemia: Status: Acute (4) Hypokalemia: Status: Acute Plan 52-year-old male with past medical history of alcohol abuse comes into the hospital with complaints of paresthesia # acute paresthesia -likely secondary to electrolyte imbalance including hypomagnesemia as well as hypo kalemia in the setting of alcohol abuse - no neurological deficit - vitamin B12 normal - has history of sciatica, but this does not seem to be the cause - will replete electrolytes - monitor symptoms -continue folic and thiamine supplement # alcohol abuse with withdrawal - started on protocol with phenobarb - supplement with folic acid and thiamine # electrolyte abnormality - repleted - follow Mag and BMP # DJD/chronic pain - continue gabapentin # positive UA - asymptomatic - patient on nitrofurantoin at home- will continue DVT prophylaxis: Lovenox Given patient's need for further management patient require minimum 2 nights inpatient hospital stay Time Spent With Patient Time: Total time managing care of this patient today ____ minutes. Quality Stroke Does the patient have a stroke diagnosis?: No VTE Prior VTE?: No VTE Risk Level:: Medical - moderate - high VTE Device Contraindication: Treatment Not Indicated VTE Drug Contraindication: N/A - Med Ordered
[2022-10-16 22:57] LABS: Bacteria Urine None Seen (None Seen); UACC Culture Trigger YES; WBC Urine 0-5 /HPF (0-5)
[2022-10-16 23:30] LABS: Amphetamine Screen Urine Not Detected (Not Detect); Barbiturates, Urine Not Detected (Not Detect); Benzodiazepines Screen Urine Not Detected (Not Detect); Cannabinoid Screen Urine Not Detected (Not Detect); Cocaine Screen Urine Not Detected (Not Detect); Fentanyl, urine Not Detected (Not Detect); Opiate Screen Urine Not Detected (Not Detect); Phencyclidine Screen Urine Not Detected (Not Detect)
[2022-10-16 23:32] LABS: Folate 6.4 ng/mL (> or = 4.0); Vitamin B12 687 pg/mL (200-900)
[2022-10-16] MEDS: Folic Acid 1 MG TABLET PO (23:37)
[2022-10-16] MEDS: Cyanocobalamin (Vitamin B-12) 1,000 MCG/ML VIAL 1000 MCG IM (23:37)
[2022-10-16] MEDS: Enoxaparin Sodium 40 MG/0.4 ML SYRINGE SUBCUT (23:37)
--- NOTE | 2022-10-17 00:03 | PC.NURSE ---
This RN attempt to call report, staff statimg unsure of who was taking pt or report. This RN called nursing aging department supervisor, report to go to [facility]. [facility] unavailable, they will call to get report when ready.
[2022-10-17] MEDS: PHENobarbitaL sodium 130 MG/ML VIAL IM Q3Hx2 219 MG IM ×2 (00:19→03:22)
[2022-10-17] MEDS: 0.9 % Sodium Chloride Flush 3 ML SYRINGE IVFLUSH ×3 (00:20→21:06)
[2022-10-17 01:06] VITALS: BP 107/79; PULSE 79; RESP 16; TEMP 36.8; O2SAT 94
[2022-10-17 01:07] VITALS: BMI 27.6
--- NOTE | 2022-10-17 02:43 | PC.NURSE ---
Called ED at 0000 for handover report after an ED staff attempted to call report, report sara from [facility], pt was transported to the unit at 0050 after on a bed, admission care rendered, safety instructed.
[2022-10-17 03:23] VITALS: BP 111/67; PULSE 90
[2022-10-17 06:14] LABS: MANUAL DIFF FLAG NO
[2022-10-17 06:21] LABS: Basophils Absolute Auto 0.1 X10*3/uL (0.0-0.2); Basophils Percent Auto 0.8 % (0-2); Eosinophils Absolute Auto 0.1 X10*3/uL (0.0-0.4); Eosinophils Percent Auto 0.7 % (0-4); Hemoglobin 11.2 g/dl (14.0-18.0); Imm Gran Abs Auto 0.02 X10*3/uL (0.00-0.03); Imm Gran Pct Auto 0.3 % (0.0-0.4); Lymphocytes Absolute Auto 1.8 X10*3/uL (1.2-4.9); Lymphocytes Percent Auto 25.6 % (20-40); Mean Corpuscular HGB Conc 33.9 g/dl (31.0-36.0); Mean Corpuscular Hemoglobin 35.2 pg (27.0-33.0); Mean Corpuscular Volume 103.8 fL (80.0-98.0); Mean Platelet Volume 11.2 fL (9.4-12.4); Monocytes Absolute Auto 0.5 X10*3/uL (0.1-1.2); Neutrophils Absolute Auto 4.7 x10*3/uL (2.0-8.3); Neutrophils Percent Auto 65.6 % (45-73); Platelet Count 113 X10*3/uL (160-400); Red Blood Count 3.18 X10*6/uL (4.60-5.80); Red Cell Distribution Width 13.1 % (11.0-16.0); White Blood Count 7.1 X10*3/uL (4.8-10.8)
[2022-10-17] MEDS: Magnesium Sulfate/H2O 2 GM/50 ML PIGGYBACK IV (06:33)
[2022-10-17] MEDS: Potassium Chloride Packet 20 MEQ PACKET 40 MEQ PO (06:33)
[2022-10-17 06:40] LABS: Anion Gap 18 (12-20); Blood Urea Nitrogen 6 mg/dL (9-16); Calcium 8.4 mg/dL (8.4-10.2); Carbon Dioxide 23 mmol/L (22-29); Chloride 99 mmol/L (96-108); Estimated Glomerular Filt Rate > 60; Glucose Random 99 mg/dL (60-115); Magnesium 1.5 mg/dL (1.6-2.6); Potassium 3.3 mmol/L (3.3-5.1); Sodium 137 mmol/L (135-145)
--- NOTE | 2022-10-17 07:07 | PHA.MEDREC ---
Pharmacy Consult ? Medication Reconciliation Pharmacy has reviewed the medication reconciliation done by RN.
[2022-10-17 08:00] VITALS: BP 115/64; PULSE 86; RESP 16; TEMP 37; O2SAT 96
--- NOTE | 2022-10-17 08:14 | P.PNIM_ITS ---
Subjective Subjective Date of Service: 10/17/22 Interval History: Follow-up for paresthesias. Patient states improvement in symptoms since admission. No symptoms of alcohol withdrawal. CIWA 0. States he stays in a tent and does not have a place to go. No new symptoms. Constitutional Constitutional: Reports weakness Cardiovascular Cardiovascular: Reports no additional cardiovascular complaints Respiratory Respiratory: Reports no additional respiratory complaints Gastrointestinal Gastrointestinal: Reports no additional gastrointestinal complaints Musculoskeletal Musculoskeletal: Reports tingling Neurologic Neurologic: Reports tingling, Reports paresthesias and Reports weakness Physical Exam Vital Signs: Vital Signs: Last Vital Signs Temp 98.3 F 10/17/22 01:06 Pulse 90 10/17/22 03:23 Resp 16 10/17/22 01:06 BP 111/67 10/17/22 03:23 Pulse Ox 94 10/17/22 01:06 O2 Del Method Room Air 10/17/22 01:06 BMI result Body Mass Index 27.6 Middle-aged poorly kept male lying in bed in no distress Neck supple, no JVD Regular rate and rhythm, S1-S2 heard Regular breath sounds bilaterally, no wheezing or crackles appreciated Abdomen soft nontender, no guarding, no rigidity Patient is awake, alert and oriented to self, place, time and person ; no focal extremity weakness Psych: Normal mood No pedal edema Objective Data Active Medications Acetaminophen (Acetaminophen 325 Mg Tablet) 650 mg PO Q6H PRN PRN Reason: Pain, Mild (Pain Scale 1-3) Albuterol Sulfate (Albuterol Sulfate 90 Mcg 8 Gm Inhaler) 2 puff INHALE RQID PRN PRN Reason: shortness of breath or wheezing Docusate Sodium (Docusate Sodium 100 Mg Capsule) 100 mg PO DAILY PRN PRN Reason: Constipation Enoxaparin Sodium (Enoxaparin Sodium 40 Mg/0.4 Ml Syringe) 40 mg SUBCUT Q24H [facility] Last Admin: 10/16/22 23:37 Dose: 40 mg Documented By: LINDA Folic Acid (Folic Acid 1 Mg Tablet) 1 mg PO DAILY [facility] Gabapentin (Gabapentin 100 Mg Capsule) 100 mg PO BEDTIME [facility] Magnesium Sulfate (Magnesium Sulfate/H2o) 2 gm in 50 mls @ 25 mls/hr IV ONCE ONE Stop: 10/17/22 08:23 Last Admin: 10/17/22 06:33 Dose: 25 mls/hr Documented By: JARED Lidocaine (Lidocaine 4 % Patch Adh..Patch) 1 patch TRANSDERMA DAILY PRN; Protocol PRN Reason: Pain, Moderate(Pain Scale 4-6) Lidocaine (Lidocaine 4 % Patch Adh..Patch) 1 patch TRANSDERMA DAILY [facility] Magnesium Oxide (Magnesium Oxide 400 Mg Tablet) 400 mg PO DAILY [facility] Ondansetron HCl (Ondansetron Hcl 4 Mg/2 Ml Vial) 4 mg IVPUSH Q8H PRN PRN Reason: Nausea and Vomiting Pharmacy Consult (Consult Rx Etoh Phenob Im/Po) 1 each MISCELLANE ONCE PRN; Protocol PRN Reason: Consult order Phenobarbital (Phenobarbital 15 Mg Tablet) 45 mg PO BID [facility] Stop: 10/18/22 21:01 Phenobarbital (Phenobarbital 30 Mg Tablet) 30 mg PO BID [facility] Stop: 10/20/22 21:01 Phenobarbital (Phenobarbital 15 Mg Tablet) 15 mg PO DAILY [facility] Stop: 10/22/22 09:01 Sodium Chloride (0.9 % Sodium Chloride Flush 3 Ml Syringe) 3 ml IVFLUSH QSHIFT [facility] Last Admin: 10/17/22 07:16 Dose: Not Given Documented By: SHAHID Non-Admin Reason: IV Running Thiamine HCl (Thiamine Hcl 100 Mg Tablet) 100 mg PO DAILY [facility] Labs 10/17/22 05:22 10/17/22 05:22 Labs: Laboratory Results - last 24 hr 10/16/22 10/16/22 10/16/22 18:54 18:54 18:54 MCV 103.3 H MCH 35.6 H MCHC 34.5 RDW 13.2 Plt Count 122 L D MPV 10.3 Immature Gran % (Auto) 0.2 Neut % (Auto) 68.6 Lymph % (Auto) 20.7 [place] % (Auto) 9.4 Eos % (Auto) 0.2 Baso % (Auto) 0.9 Lymph # (Auto) 1.7 [place] # (Auto) 0.8 Eos # (Auto) 0.0 Baso # (Auto) 0.1 Abs Immat Gran (auto) 0.02 Absolute Neuts (auto) 5.5 Absolute Nucleated RBC 0.000 Nucleated RBC % (auto) 0.0 Smear Tech's Comments VERIFIED Anion Gap 19 Estim Creat Clear Calc 142.2 Estimated GFR > 60 Random Glucose 107 Calcium 8.5 Magnesium 1.0 L* Total Bilirubin 2.3 H Direct Bilirubin 1.3 H AST 86 H ALT 23 Alkaline Phosphatase 175 H Total Protein 6.5 Albumin 3.0 L Vitamin B12 Folate Urine Color Urine Appearance Urine pH Ur Specific [place] Urine Protein Urine Glucose (UA) Urine Ketones Urine Blood Urine Nitrite Ur Leukocyte Esterase Urine RBC Urine WBC Ur Squamous Epith Cells Urine Bacteria Hyaline Casts Urine Opiates Screen Urine Fentanyl Screen Ur Barbiturates Screen Ur Phencyclidine Scrn Ur Amphetamines Screen U Benzodiazepines Scrn Urine Cocaine Screen U Marijuana (THC) Screen Ethyl Alcohol < 10 10/16/22 10/16/22 10/16/22 20:42 20:42 22:34 MCV MCH MCHC RDW Plt Count MPV Immature Gran % (Auto) Neut % (Auto) Lymph % (Auto) [place] % (Auto) Eos % (Auto) Baso % (Auto) Lymph # (Auto) [place] # (Auto) Eos # (Auto) Baso # (Auto) Abs Immat Gran (auto) Absolute Neuts (auto) Absolute Nucleated RBC Nucleated RBC % (auto) Smear Tech's Comments Anion Gap Estim Creat Clear Calc Estimated GFR Random Glucose Calcium Magnesium Total Bilirubin Direct Bilirubin AST ALT Alkaline Phosphatase Total Protein Albumin Vitamin B12 687 Folate 6.4 Urine Color DK YELLOW Urine Appearance Cloudy Urine pH 6.0 Ur Specific [place] 1.020 Urine Protein Trace Urine Glucose (UA) Negative Urine Ketones 40 Urine Blood Negative Urine Nitrite Positive H Ur Leukocyte Esterase Negative Urine RBC 3-5 H Urine WBC 0-5 Ur Squamous Epith Cells 3-5 Urine Bacteria None Seen Hyaline Casts 3-5 Urine Opiates Screen Not Detected Urine Fentanyl Screen Not Detected Ur Barbiturates Screen Not Detected Ur Phencyclidine Scrn Not Detected Ur Amphetamines Screen Not Detected U Benzodiazepines Scrn Not Detected Urine Cocaine Screen Not Detected U Marijuana (THC) Screen Not Detected Ethyl Alcohol 10/17/22 10/17/22 05:22 05:22 MCV 103.8 H MCH 35.2 H MCHC 33.9 RDW 13.1 Plt Count 113 L MPV 11.2 Immature Gran % (Auto) 0.3 Neut % (Auto) 65.6 Lymph % (Auto) 25.6 [place] % (Auto) 7.0 Eos % (Auto) 0.7 Baso % (Auto) 0.8 Lymph # (Auto) 1.8 [place] # (Auto) 0.5 Eos # (Auto) 0.1 Baso # (Auto) 0.1 Abs Immat Gran (auto) 0.02 Absolute Neuts (auto) 4.7 Absolute Nucleated RBC 0.000 Nucleated RBC % (auto) 0.0 Smear Tech's Comments Anion Gap 18 Estim Creat Clear Calc 147.0 Estimated GFR > 60 Random Glucose 99 Calcium 8.4 Magnesium 1.5 L Total Bilirubin Direct Bilirubin AST ALT Alkaline Phosphatase Total Protein Albumin Vitamin B12 Folate Urine Color Urine Appearance Urine pH Ur Specific [place] Urine Protein Urine Glucose (UA) Urine Ketones Urine Blood Urine Nitrite Ur Leukocyte Esterase Urine RBC Urine WBC Ur Squamous Epith Cells Urine Bacteria Hyaline Casts Urine Opiates Screen Urine Fentanyl Screen Ur Barbiturates Screen Ur Phencyclidine Scrn Ur Amphetamines Screen U Benzodiazepines Scrn Urine Cocaine Screen U Marijuana (THC) Screen Ethyl Alcohol Assessment and Plan (1) Alcohol withdrawal: Status: Acute (2) Paresthesia of bilateral legs: Status: Acute (3) Paresthesia and pain of both upper extremities: Status: Acute Plan 52-year-old male with past medical history of alcohol abuse comes into the hospital with complaints of paresthesia # Polyneuropathy, likely toxic in the setting of alcohol use - improvement noted with correction of electrolytes. will obtain TSH. Vitamin B12 normal. Outpatient neurology evaluation -continue folic and thiamine supplement # Alcohol use disorder - started on protocol with phenobarb - supplement with folic acid and thiamine - consulting Addiction Team. # Hypokalemia and hypomagnesemia - repleted - follow Mag and BMP # DJD/chronic pain - continue gabapentin # Homelessness: consulting hospice case manager DVT prophylaxis: Lovenox Continued hospitalization: For safe disposition and alcohol withdrawal Time Spent With Patient Time: Total time managing care of this patient today ____ minutes. Quality Stroke Does the patient have a stroke diagnosis?: No VTE Prior VTE?: No VTE Risk Level:: Medical - moderate - high VTE Device Contraindication: Treatment Not Indicated VTE Drug Contraindication: N/A - Med Ordered
[2022-10-17] MEDS: PHENobarbitaL 15 MG TABLET 45 MG PO ×2 (08:49→21:05)
[2022-10-17] MEDS: Acetaminophen 325 MG TABLET 650 MG PO ×2 (08:49→21:05)
[2022-10-17] MEDS: Folic Acid 1 MG TABLET PO (08:49)
[2022-10-17] MEDS: Magnesium Oxide 400 MG TABLET PO (08:49)
[2022-10-17] MEDS: Thiamine HCL 100 MG TABLET PO (08:49)
[2022-10-17] MEDS: Lidocaine 4 % Patch ADH..PATCH 1 PATCH TRANSDERMA ×2 (08:50)
[2022-10-17 09:01] LABS: Thyroid Stimulating Hormone 4.64 uIU/mL (0.32-4.0)
--- NOTE | 2022-10-17 09:20 | MHC.CM.PN ---
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
[2022-10-17 15:56] VITALS: BP 104/63; PULSE 83; RESP 16; TEMP 36.1; O2SAT 96
[2022-10-17 19:43] VITALS: BP 111/73; PULSE 86; RESP 18; TEMP 36.2; O2SAT 99
[2022-10-17] MEDS: Enoxaparin Sodium 40 MG/0.4 ML SYRINGE SUBCUT (21:05)
[2022-10-17] MEDS: Gabapentin 100 MG CAPSULE PO (21:05)
[2022-10-18] MEDS: Acetaminophen 325 MG TABLET 650 MG PO ×4 (03:15→23:24)
[2022-10-18 03:30] VITALS: BP 117/59; PULSE 91; RESP 16; TEMP 36.2; O2SAT 95
[2022-10-18 07:13] VITALS: BP 104/63; PULSE 89; RESP 20; TEMP 35.7; O2SAT 94
[2022-10-18 07:30] LABS: Anion Gap 14 (12-20); Blood Urea Nitrogen 4 mg/dL (9-16); Calcium 8.2 mg/dL (8.4-10.2); Carbon Dioxide 23 mmol/L (22-29); Chloride 100 mmol/L (96-108); Creatinine Clr Calc Pharmacy 166.4; Estimated Glomerular Filt Rate > 60; Glucose Random 90 mg/dL (60-115); Potassium 3.4 mmol/L (3.3-5.1); Sodium 134 mmol/L (135-145)
[2022-10-18 07:33] LABS: Magnesium 1.4 mg/dL (1.6-2.6)
[2022-10-18] MEDS: Lidocaine 4 % Patch ADH..PATCH 1 PATCH TRANSDERMA ×2 (08:36)
[2022-10-18] MEDS: PHENobarbitaL 15 MG TABLET 45 MG PO ×2 (08:36→20:23)
[2022-10-18] MEDS: Magnesium Sulfate/H2O 2 GM/50 ML PIGGYBACK IV (08:36)
[2022-10-18] MEDS: Magnesium Oxide 400 MG TABLET PO ×2 (08:37→17:19)
[2022-10-18] MEDS: Thiamine HCL 100 MG TABLET PO (08:37)
[2022-10-18] MEDS: Folic Acid 1 MG TABLET PO (08:37)
[2022-10-18] MEDS: 0.9 % Sodium Chloride Flush 3 ML SYRINGE IVFLUSH ×3 (08:37→19:30)
--- NOTE | 2022-10-18 13:30 | MHC.CM.PN ---
per sebastian pts electrolytes are off possible dc tues plan remains dc back to his carwhere he lives with his and dog
--- NOTE | 2022-10-18 14:15 | P.PNIM_ITS ---
Subjective Subjective Date of Service: 10/18/22 Interval History: Follow-up for patient with paresthesias and alcohol withdrawal. Patient's Mag came back low at 1.4 Patient states continues to feel tingling, numbness, and pain in his legs and feet, worse than yesterday but better than when he came in. Says parathesias have been occurring for months now Gabapentin has helped some No headache, anxiety, diaphoresis No tremors Review of Systems Numbness, tingling, pain in feet and legs bilaterally Numbness and tingling in hands Lower leg weakness Physical Exam Vital Signs: Vital Signs: Last Vital Signs Temp 96.3 F L 10/18/22 07:13 Pulse 89 10/18/22 07:13 Resp 20 10/18/22 07:13 BP 104/63 10/18/22 07:13 Pulse Ox 94 10/18/22 07:13 O2 Del Method Room Air 10/18/22 07:13 BMI result Body Mass Index 27.6 General: AOx3, no acute distress Resp: CTA bilaterally CVS: S1, S2, RRR GI: +BS, NT, no distention Skin: No rash Neuro: Cranial nerves II-XII grossly intact bilaterally. Motor grossly intact bilaterally Extremities: No edema. Psych: Appropriate affect Objective Data Active Medications Acetaminophen (Acetaminophen 325 Mg Tablet) 650 mg PO Q6H PRN PRN Reason: Pain, Mild (Pain Scale 1-3) Last Admin: 10/18/22 08:36 Dose: 650 mg Documented By: SHAHID Albuterol Sulfate (Albuterol Sulfate 90 Mcg 8 Gm Inhaler) 2 puff INHALE RQID PRN PRN Reason: shortness of breath or wheezing Docusate Sodium (Docusate Sodium 100 Mg Capsule) 100 mg PO DAILY PRN PRN Reason: Constipation Enoxaparin Sodium (Enoxaparin Sodium 40 Mg/0.4 Ml Syringe) 40 mg SUBCUT Q24H [facility] Last Admin: 10/17/22 21:05 Dose: 40 mg Documented By: KAUR Folic Acid (Folic Acid 1 Mg Tablet) 1 mg PO DAILY [facility] Last Admin: 10/18/22 08:37 Dose: 1 mg Documented By: SHAHID Gabapentin (Gabapentin 100 Mg Capsule) 100 mg PO BEDTIME [facility] Last Admin: 10/17/22 21:05 Dose: 100 mg Documented By: KAUR Lidocaine (Lidocaine 4 % Patch Adh..Patch) 1 patch TRANSDERMA DAILY PRN; Protocol PRN Reason: Pain, Moderate(Pain Scale 4-6) Last Admin: 10/18/22 08:36 Dose: 1 patch Documented By: SHAHID Lidocaine (Lidocaine 4 % Patch Adh..Patch) 1 patch TRANSDERMA DAILY [facility] Last Admin: 10/18/22 08:36 Dose: 1 patch Documented By: SHAHID Magnesium Oxide ([facility]esium [facility]ide 400 Mg Tablet) [facility] Ondansetron HCl (Ondansetron Hcl 4 Mg/2 Ml Vial) 4 mg IVPUSH Q8H PRN PRN Reason: Nausea and Vomiting Pharmacy Consult (Consult Rx Etoh Phenob Im/Po) 1 each MISCELLANE ONCE PRN; Protocol PRN Reason: Consult order Phenobarbital (Phenobarbital 15 Mg Tablet) 45 mg PO BID [facility] Stop: 10/18/22 21:01 Last Admin: 10/18/22 08:36 Dose: 45 mg Documented By: SHAHID Phenobarbital (Phenobarbital 30 Mg Tablet) 30 mg PO BID [facility] Stop: 10/20/22 21:01 Phenobarbital (Phenobarbital 15 Mg Tablet) 15 mg PO DAILY [facility] Stop: 10/22/22 09:01 Sodium Chloride (0.9 % Sodium Chloride Flush 3 Ml Syringe) 3 ml IVFLUSH QSHIFT [facility] Last Admin: 10/18/22 08:37 Dose: 3 ml Documented By: SHAHID Thiamine HCl (Thiamine Hcl 100 Mg Tablet) 100 mg PO DAILY [facility] Last Admin: 10/18/22 08:37 Dose: 100 mg Documented By: SHAHID Labs 10/17/22 05:22 10/18/22 05:22 Labs: Laboratory Results - last 24 hr 10/18/22 05:22 Anion Gap 14 Estim Creat Clear Calc 166.4 Estimated GFR > 60 Random Glucose 90 Calcium 8.2 L Magnesium 1.4 L* Microbiology Microbiology Results: Microbiology 10/16/22 Unknown Urine Culture - Final Urine clean catch - Clean Catch Midstream Assessment and Plan (1) Paresthesia of bilateral legs: Status: Acute Assessment and Plan: (2) Weakness: Status: Acute (3) Hypomagnesemia: Status: Acute Plan 52-year-old male with past medical history of alcohol abuse comes into the hospital with complaints of paresthesia Polyneuropathy, likely toxic in the setting of alcohol use Improvement initially noted with correction of electrolytes, though now appa rently worse than yesterday TSH?mildly elevated at 4.64, will check T4 Vitamin B12 normal Continue folic and thiamine supplement PT evaluated, suggest PT can be discharged to home with family support, use RW for ambulation Outpatient neurology evaluation Alcohol use disorder Started on protocol with phenobarb Supplement with folic acid and thiamine Addiction Team consulted, pt refused services Hypomagnesemia Mag today was 1.4 Received 2g IV Will recheck mag Will increase po mag to 400 mg bid Follow mag Hypokalemia Repleted Follow BMP DJD/chronic pain Continue gabapentin Homelessness: Consulting case monitor DVT prophylaxis:? Merrill Attending: Dr. Jackman Continued hospitalization:? For safe disposition and alcohol withdrawal. PT Time Spent With Patient Time: Total time managing care of this patient today ____ minutes. Quality Stroke Does the patient have a stroke diagnosis?: No VTE Prior VTE?: No VTE Risk Level:: Medical - moderate - high VTE Device Contraindication: Treatment Not Indicated VTE Drug Contraindication: N/A - Med Ordered
[2022-10-18 15:35] LABS: Magnesium 1.6 mg/dL (1.6-2.6)
[2022-10-18 15:40] VITALS: BP 99/60; PULSE 90; RESP 20; TEMP 36.4; O2SAT 98
[2022-10-18 16:35] LABS: T4 Thyroxine 10.5 ug/dL (4.5-12.0)
--- NOTE | 2022-10-18 17:11 | P.EN_ITS ---
Event Note Date of Service: 10/18/22 Event Note: Addiction consult placed for patient with AUD Seen by Recovery technical support consultant, resources provided. Patient declines any intervention. No follow up indicated unless patient requests. Time Spent With Patient Time: Total time managing care of this patient today ____ minutes.
[2022-10-18 19:33] VITALS: BP 112/73; PULSE 82; RESP 18; TEMP 36.2; O2SAT 97
[2022-10-18] MEDS: ondansetron HCL 4 MG/2 ML VIAL IVPUSH ×2 (19:40→23:37)
[2022-10-18] MEDS: Gabapentin 100 MG CAPSULE PO (20:23)
[2022-10-18] MEDS: methocarbamoL 500 MG TABLET PO (23:25)
[2022-10-18] MEDS: Enoxaparin Sodium 40 MG/0.4 ML SYRINGE SUBCUT (23:29)
[2022-10-19 00:35] VITALS: BP 114/79; PULSE 91; RESP 18; TEMP 36.3; O2SAT 95
[2022-10-19 07:23] VITALS: BP 101/67; PULSE 85; RESP 17; TEMP 36.8; O2SAT 94
[2022-10-19] MEDS: Lidocaine 4 % Patch ADH..PATCH 1 PATCH TRANSDERMA (08:42)
[2022-10-19] MEDS: Magnesium Oxide 400 MG TABLET PO (08:42)
[2022-10-19] MEDS: PHENobarbitaL 30 MG TABLET PO ×2 (08:43→19:46)
[2022-10-19] MEDS: Thiamine HCL 100 MG TABLET PO (08:43)
[2022-10-19] MEDS: Folic Acid 1 MG TABLET PO (08:43)
[2022-10-19 09:39] LABS: Anion Gap 17 (12-20); Blood Urea Nitrogen 5 mg/dL (9-16); Calcium 8.6 mg/dL (8.4-10.2); Carbon Dioxide 21 mmol/L (22-29); Chloride 100 mmol/L (96-108); Creatinine Clr Calc Pharmacy 144.6; Estimated Glomerular Filt Rate > 60; Glucose Random 133 mg/dL (60-115); Potassium 3.5 mmol/L (3.3-5.1); Sodium 134 mmol/L (135-145)
[2022-10-19 09:42] LABS: Magnesium 1.4 mg/dL (1.6-2.6)
--- NOTE | 2022-10-19 09:57 | MHC.RECOVRN ---
Met with pt on 10/18, pt had been provided resources by [facility]. Pt denies questions or concerns related to support, declines referrals at this time. Encouraged to reach out to t/w if questions or concerns arise.
[2022-10-19] MEDS: Magnesium Sulfate/H2O 2 GM/50 ML PIGGYBACK IV (10:22)
[2022-10-19] MEDS: 0.9 % Sodium Chloride Flush 3 ML SYRINGE IVFLUSH ×2 (10:22→16:11)
[2022-10-19] MEDS: Gabapentin 100 MG CAPSULE PO ×3 (10:24→19:46)
--- NOTE | 2022-10-19 11:06 | HO.PM.IMPN ---
Subjective Subjective Date of Service: 10/19/22 Interval History: chronic numbness of feet + hands denies EtOH is a problem for him Mg 1.4 Review of Systems Review of Systems: Yes all other systems are reviewed and are negative Physical Exam Vital Signs: Vital Signs: Last Vital Signs Temp 98.2 F 10/19/22 07:23 Pulse 85 10/19/22 07:23 Resp 17 10/19/22 07:23 BP 101/67 10/19/22 07:23 Pulse Ox 94 10/19/22 07:23 O2 Del Method Room Air 10/19/22 07:23 BMI result Body Mass Index 27.6 Gen: in no acute distress HEENT: sclera anicteric, moist mucus membranes Neck: supple Lungs: clear to auscultation bilaterally Heart: regular rate and rhythm, no murmurs Abd: soft, non-tender, non-distended Ext: no edema Skin: warm/well-perfused Neuro: alert and oriented x3, normal strength throughout Psych: appropriate affect Objective Data Active Medications Acetaminophen (Acetaminophen 325 Mg Tablet) 650 mg PO Q6H PRN PRN Reason: Pain, Mild (Pain Scale 1-3) Last Admin: 10/18/22 23:24 Dose: 650 mg Documented By: MANDIE Albuterol Sulfate (Albuterol Sulfate 90 Mcg 8 Gm Inhaler) 2 puff INHALE RQID PRN PRN Reason: shortness of breath or wheezing Diphenhydramine HCl (Diphenhydramine Hcl 25 Mg Capsule) 50 mg PO Q6H PRN PRN Reason: Itching Docusate Sodium (Docusate Sodium 100 Mg Capsule) 100 mg PO DAILY PRN PRN Reason: Constipation Enoxaparin Sodium (Enoxaparin Sodium 40 Mg/0.4 Ml Syringe) 40 mg SUBCUT Q24H [facility] Last Admin: 10/18/22 23:29 Dose: 40 mg Documented By: MANDIE Folic Acid (Folic Acid 1 Mg Tablet) 1 mg PO DAILY [facility] Last Admin: 10/19/22 08:43 Dose: 1 mg Documented By: WADE Gabapentin (Gabapentin 100 Mg Capsule) 100 mg PO TID [facility] Last Admin: 10/19/22 10:24 Dose: 100 mg Documented By: WADE Magnesium Sulfate (Magnesium Sulfate/H2o) 2 gm in 50 mls @ 25 mls/hr IV ONCE ONE Stop: 10/19/22 12:07 Last Admin: 10/19/22 10:22 Dose: 25 mls/hr Documented By: WADE Lidocaine (Lidocaine 4 % Patch Adh..Patch) 1 patch TRANSDERMA DAILY PRN; Protocol PRN Reason: Pain, Moderate(Pain Scale 4-6) Last Admin: 10/18/22 08:36 Dose: 1 patch Documented By: SHAHID Lidocaine (Lidocaine 4 % Patch Adh..Patch) 1 patch TRANSDERMA DAILY [facility] Last Admin: 10/19/22 08:42 Dose: 1 patch Documented By: WADE Magnesium Oxide (Magnesium [facility]ide 400 Mg Tablet) [facility] Ondansetron HCl (Ondansetron Hcl 4 Mg/2 Ml Vial) 4 mg IVPUSH Q8H PRN PRN Reason: Nausea and Vomiting Last Admin: 10/18/22 19:40 Dose: 4 mg Documented By: MANDIE Pharmacy Consult (Consult Rx Etoh Phenob Im/Po) 1 each MISCELLANE ONCE PRN; Protocol PRN Reason: Consult order Phenobarbital (Phenobarbital 30 Mg Tablet) 30 mg PO BID [facility] Stop: 10/20/22 21:01 Last Admin: 10/19/22 08:43 Dose: 30 mg Documented By: WADE Phenobarbital (Phenobarbital 15 Mg Tablet) 15 mg PO DAILY [facility] Stop: 10/22/22 09:01 Sodium Chloride (0.9 % Sodium Chloride Flush 3 Ml Syringe) 3 ml IVFLUSH QSHIFT [facility] Last Admin: 10/19/22 10:22 Dose: 3 ml Documented By: WADE Thiamine HCl (Thiamine Hcl 100 Mg Tablet) 100 mg PO DAILY [facility] Last Admin: 10/19/22 08:43 Dose: 100 mg Documented By: WADE Labs 10/17/22 05:22 10/19/22 09:08 Labs: Laboratory Results - last 24 hr 10/18/22 10/18/22 10/19/22 05:22 14:52 09:08 Anion Gap 17 Estim Creat Clear Calc 144.6 Estimated GFR > 60 Random Glucose 133 H Calcium 8.6 Magnesium 1.6 1.4 L* Thyroxine (T4) 10.5 Microbiology Microbiology Results: Microbiology 10/16/22 Unknown Urine Culture - Final Urine clean catch - Clean Catch Midstream Assessment and Plan (1) Paresthesia of bilateral legs: Status: Acute Assessment and Plan: (2) Weakness: Status: Acute (3) Hypomagnesemia: Status: Acute Plan d4 52yo M with AUD presenting with paresthesias and admitted for EtOH withdrawal AUD with EtOH withdrawal - phenobarbital taper - thiamine, folate - declined support from Recovery Team/Addiction Medicine polyneuropathy - TSH slightly high but free T4 normal - try increasing gabapentin 100 mg qhs -> 100 mg tid - suspect EtOH-related, should have outpt Neuro eval - PT: home with family support, RW for pain mgmt/energy conservation hypoMg - increase PO dose and give 1 IV dose, recheck level in AM hypoK - repleted chronic pain - gabapentin - planned back surgery in mid-Oct VTE ppx - LMWH dispo - anticipate home with family support tomorrow In my clinical judgment, the patient requires continued inpatient hospitalization for the following reasons: hypoMg Time Spent With Patient Time: Total time managing care of this patient today ___40_ minutes. Quality Stroke Does the patient have a stroke diagnosis?: No VTE Prior VTE?: No VTE Risk Level:: Medical - moderate - high VTE Device Contraindication: Treatment Not Indicated VTE Drug Contraindication: N/A - Med Ordered
[2022-10-19] MEDS: ondansetron HCL 4 MG/2 ML VIAL IVPUSH ×2 (12:47→19:57)
[2022-10-19] MEDS: diphenhydrAMINE HCL 25 MG CAPSULE 50 MG PO (13:34)
[2022-10-19] MEDS: Simethicone 80 MG TAB.CHEW PO (13:34)
[2022-10-19 15:34] VITALS: BP 103/70; PULSE 84; RESP 20; TEMP 36.8; O2SAT 97
[2022-10-19] MEDS: Magnesium Oxide 400 MG TABLET 800 MG PO (16:55)
[2022-10-19 19:53] VITALS: BP 99/66; PULSE 81; RESP 20; TEMP 37.2; O2SAT 95
[2022-10-19] MEDS: Acetaminophen 325 MG TABLET 650 MG PO (21:44)
[2022-10-19] MEDS: Enoxaparin Sodium 40 MG/0.4 ML SYRINGE SUBCUT (21:45)
[2022-10-20 04:00] VITALS: BP 102/66; PULSE 91; RESP 16; TEMP 36.7; O2SAT 97
[2022-10-20 06:25] LABS: Anion Gap 15 (12-20); Blood Urea Nitrogen 4 mg/dL (9-16); Calcium 8.5 mg/dL (8.4-10.2); Carbon Dioxide 23 mmol/L (22-29); Chloride 100 mmol/L (96-108); Creatinine Clr Calc Pharmacy 157.5; Estimated Glomerular Filt Rate > 60; Glucose Random 107 mg/dL (60-115); Magnesium 1.5 mg/dL (1.6-2.6); Potassium 3.4 mmol/L (3.3-5.1); Sodium 135 mmol/L (135-145)
[2022-10-20 07:32] VITALS: BP 111/65; PULSE 83; RESP 16; TEMP 36.3; O2SAT 95
[2022-10-20] MEDS: Magnesium Sulfate/H2O 2 GM/50 ML PIGGYBACK IV (08:00)
[2022-10-20] MEDS: Lidocaine 4 % Patch ADH..PATCH 1 PATCH TRANSDERMA (08:41)
[2022-10-20] MEDS: 0.9 % Sodium Chloride Flush 3 ML SYRINGE IVFLUSH ×2 (08:43→17:03)
[2022-10-20] MEDS: Gabapentin 100 MG CAPSULE PO ×3 (08:50→20:08)
[2022-10-20] MEDS: Thiamine HCL 100 MG TABLET PO (08:50)
[2022-10-20] MEDS: Folic Acid 1 MG TABLET PO (08:50)
[2022-10-20] MEDS: Magnesium Oxide 400 MG TABLET 800 MG PO ×2 (08:50→17:02)
[2022-10-20] MEDS: PHENobarbitaL 30 MG TABLET PO ×2 (08:50→20:08)
--- NOTE | 2022-10-20 11:10 | P.PNIM_ITS ---
Subjective Subjective Date of Service: 10/20/22 Interval History: c/o ongoing numbness of feet and hands denies EtOH is a problem Mg still low Review of Systems Review of Systems: Yes all other systems are reviewed and are negative Physical Exam Vital Signs: Vital Signs: Last Vital Signs Temp 97.3 F 10/20/22 07:32 Pulse 83 10/20/22 07:32 Resp 16 10/20/22 07:32 BP 111/65 10/20/22 07:32 Pulse Ox 95 10/20/22 07:32 O2 Del Method Room Air 10/20/22 07:32 BMI result Body Mass Index 27.6 Gen: in no acute distress HEENT: sclera anicteric, moist mucus membranes Neck: supple Lungs: clear to auscultation bilaterally Heart: regular rate and rhythm, no murmurs Abd: soft, non-tender, non-distended Ext: no edema Skin: warm/well-perfused Neuro: alert and oriented x3, normal strength throughout Psych: appropriate affect Objective Data Active Medications Acetaminophen (Acetaminophen 325 Mg Tablet) 650 mg PO Q6H PRN PRN Reason: Pain, Mild (Pain Scale 1-3) Last Admin: 10/19/22 21:44 Dose: 650 mg Documented By: TRINITY Albuterol Sulfate (Albuterol Sulfate 90 Mcg 8 Gm Inhaler) 2 puff INHALE RQID PRN PRN Reason: shortness of breath or wheezing Diphenhydramine HCl (Diphenhydramine Hcl 25 Mg Capsule) 50 mg PO Q6H PRN PRN Reason: Itching Last Admin: 10/19/22 13:34 Dose: 50 mg Documented By: WADE Docusate Sodium (Docusate Sodium 100 Mg Capsule) 100 mg PO DAILY PRN PRN Reason: Constipation Enoxaparin Sodium (Enoxaparin Sodium 40 Mg/0.4 Ml Syringe) 40 mg SUBCUT Q24H [facility] Last Admin: 10/19/22 21:45 Dose: 40 mg Documented By: TRINITY Folic Acid (Folic Acid 1 Mg Tablet) 1 mg PO DAILY [facility] Last Admin: 10/20/22 08:50 Dose: 1 mg Documented By: WADE Gabapentin (Gabapentin 100 Mg Capsule) 100 mg PO TID [facility] Last Admin: 10/20/22 08:50 Dose: 100 mg Documented By: WADE Lidocaine (Lidocaine 4 % Patch Adh..Patch) 1 patch TRANSDERMA DAILY PRN; Protocol PRN Reason: Pain, Moderate(Pain Scale 4-6) Last Admin: 10/18/22 08:36 Dose: 1 patch Documented By: COTEMA Lidocaine (Lidocaine 4 % Patch Adh..Patch) 1 patch TRANSDERMA DAILY [facility] Last Admin: 10/20/22 08:41 Dose: 1 patch Documented By: WADE Magnesium Oxide (Magnesium Oxide 400 Mg Tablet) 800 mg PO BIDPC [facility] Last Admin: 10/20/22 08:50 Dose: 800 mg Documented By: WADE Ondansetron HCl (Ondansetron Hcl 4 Mg/2 Ml Vial) 4 mg IVPUSH Q8H PRN PRN Reason: Nausea and Vomiting Last Admin: 10/19/22 19:57 Dose: 4 mg Documented By: TRINITY Pharmacy Consult (Consult Rx Etoh Phenob Im/Po) 1 each MISCELLANE ONCE PRN; Protocol PRN Reason: Consult order Phenobarbital (Phenobarbital 30 Mg Tablet) 30 mg PO BID [facility] Stop: 10/20/22 21:01 Last Admin: 10/20/22 08:50 Dose: 30 mg Documented By: WADE Phenobarbital (Phenobarbital 15 Mg Tablet) 15 mg PO DAILY [facility] Stop: 10/22/22 09:01 Simethicone (Simethicone 80 Mg Tab.Chew) 80 mg PO QIDWMHS PRN PRN Reason: Gas Last Admin: 10/19/22 13:34 Dose: 80 mg Documented By: WADE Sodium Chloride (0.9 % Sodium Chloride Flush 3 Ml Syringe) 3 ml IVFLUSH QSHIFT [facility] Last Admin: 10/20/22 08:43 Dose: 3 ml Documented By: WADE Thiamine HCl (Thiamine Hcl 100 Mg Tablet) 100 mg PO DAILY [facility] Last Admin: 10/20/22 08:50 Dose: 100 mg Documented By: WADE Labs 10/17/22 05:22 10/20/22 05:43 Labs: Laboratory Results - last 24 hr 10/20/22 05:43 Anion Gap 15 Estim Creat Clear Calc 157.5 Estimated GFR > 60 Random Glucose 107 Calcium 8.5 Magnesium 1.5 L Assessment and Plan (1) Paresthesia of bilateral legs: Status: Acute Assessment and Plan: (2) Weakness: Status: Acute (3) Hypomagnesemia: Status: Acute Plan d5 52yo M with AUD presenting with paresthesias and admitted for EtOH withdrawal AUD with EtOH withdrawal - continue phenobarbital taper - thiamine, folate - declined support from Recovery Team/Addiction Medicine polyneuropathy - TSH slightly high but free T4 normal - increased gabapentin 100 mg qhs -> 100 mg tid - suspect EtOH-related, should have outpt Neuro eval with NCS/EMG - PT: home with family support, RW for pain mgmt/energy conservation hypoMg - increased PO dose and will give another IV dose, recheck level in AM hypoK - repleted chronic pain - gabapentin - planned back surgery in mid-Oct VTE ppx - LMWH dispo - anticipate home with family support tomorrow In my clinical judgment, the patient requires continued inpatient hospitalization for the following reasons: hypoMg, inpt management of EtOH withdrawal Time Spent With Patient Time: Total time managing care of this patient today _35___ minutes. Quality Stroke Does the patient have a stroke diagnosis?: No VTE Prior VTE?: No VTE Risk Level:: Medical - moderate - high VTE Device Contraindication: Treatment Not Indicated VTE Drug Contraindication: N/A - Med Ordered
--- NOTE | 2022-10-20 14:34 | MHC.CM.PN ---
per gss pt car was impounded p[hysical therapy receommending str referrals made [facility] considering pt pending pt beiong off [facility] 10/22
[2022-10-20 15:34] VITALS: BP 116/73; PULSE 86; RESP 20; TEMP 36.9; O2SAT 97
[2022-10-20] MEDS: Acetaminophen 325 MG TABLET 650 MG PO (17:02)
[2022-10-20 20:00] VITALS: BP 110/75; PULSE 92; RESP 16; TEMP 36.4; O2SAT 96
[2022-10-20] MEDS: Ketorolac Tromethamine 15 MG/ML VIAL IVPUSH (21:39)
[2022-10-20] MEDS: ondansetron HCL 4 MG/2 ML VIAL IVPUSH (21:39)
[2022-10-20] MEDS: Magnesium Hydrox/Alum Hydrox 30 ML ORAL.SUSP 15 ML PO (21:39)
[2022-10-20] MEDS: Enoxaparin Sodium 40 MG/0.4 ML SYRINGE SUBCUT (21:43)
[2022-10-21] MEDS: Acetaminophen 325 MG TABLET 650 MG PO ×2 (03:11→20:18)
[2022-10-21 03:12] VITALS: BP 101/63; PULSE 74; RESP 16; TEMP 36.7; O2SAT 98
[2022-10-21] MEDS: Calcium Carbonate 750 MG TAB.CHEW PO (03:22)
[2022-10-21 06:11] LABS: Anion Gap 17 (12-20); Blood Urea Nitrogen 7 mg/dL (9-16); Calcium 8.9 mg/dL (8.4-10.2); Carbon Dioxide 24 mmol/L (22-29); Chloride 98 mmol/L (96-108); Creatinine Clr Calc Pharmacy 149.5; Estimated Glomerular Filt Rate > 60; Glucose Random 99 mg/dL (60-115); Magnesium 1.8 mg/dL (1.6-2.6); Potassium 3.8 mmol/L (3.3-5.1); Sodium 135 mmol/L (135-145)
[2022-10-21 07:05] VITALS: BP 118/79; PULSE 88; RESP 18; TEMP 36.1; O2SAT 96
[2022-10-21] MEDS: 0.9 % Sodium Chloride Flush 3 ML SYRINGE IVFLUSH ×2 (07:14→15:17)
[2022-10-21] MEDS: Gabapentin 100 MG CAPSULE PO ×2 (07:15→15:17)
[2022-10-21] MEDS: PHENobarbitaL 15 MG TABLET PO (07:15)
[2022-10-21] MEDS: Magnesium Oxide 400 MG TABLET 800 MG PO ×2 (07:15→17:26)
[2022-10-21] MEDS: Folic Acid 1 MG TABLET PO (07:15)
[2022-10-21] MEDS: Thiamine HCL 100 MG TABLET PO (07:15)
[2022-10-21] MEDS: Lidocaine 4 % Patch ADH..PATCH 1 PATCH TRANSDERMA (07:16)
[2022-10-21] MEDS: Omeprazole 20 MG CAPSULE.DR PO (07:52)
[2022-10-21] MEDS: Magnesium Hydrox/Alum Hydrox 30 ML ORAL.SUSP PO (07:52)
--- NOTE | 2022-10-21 13:28 | P.PNIM_ITS ---
Subjective Subjective Date of Service: 10/21/22 Interval History: due to weakness + assistance needed, STR recommended gabapentin helping with paresthesias Review of Systems Review of Systems: Yes all other systems are reviewed and are negative Physical Exam Vital Signs: Vital Signs: Last Vital Signs Temp 97 F 10/21/22 07:05 Pulse 88 10/21/22 07:05 Resp 18 10/21/22 07:05 BP 118/79 10/21/22 07:05 Pulse Ox 96 10/21/22 07:05 O2 Del Method Room Air 10/21/22 07:05 BMI result Body Mass Index 27.6 Gen: in no acute distress HEENT: sclera anicteric, moist mucus membranes Neck: supple Lungs: clear to auscultation bilaterally Heart: regular rate and rhythm, no murmurs Abd: soft, non-tender, non-distended Ext: no edema Skin: warm/well-perfused Neuro: alert and oriented x3, normal strength throughout Psych: appropriate affect Objective Data Active Medications Acetaminophen (Acetaminophen 325 Mg Tablet) 650 mg PO Q6H PRN PRN Reason: Pain, Mild (Pain Scale 1-3) Last Admin: 10/21/22 03:11 Dose: 650 mg Documented By: MIGUEL Albuterol Sulfate (Albuterol Sulfate 90 Mcg 8 Gm Inhaler) 2 puff INHALE RQID PRN PRN Reason: shortness of breath or wheezing Diphenhydramine HCl (Diphenhydramine Hcl 25 Mg Capsule) 50 mg PO Q6H PRN PRN Reason: Itching Last Admin: 10/19/22 13:34 Dose: 50 mg Documented By: WADE Docusate Sodium (Docusate Sodium 100 Mg Capsule) 100 mg PO DAILY PRN PRN Reason: Constipation Enoxaparin Sodium (Enoxaparin Sodium 40 Mg/0.4 Ml Syringe) 40 mg SUBCUT Q24H [facility] Last Admin: 10/20/22 21:43 Dose: 40 mg Documented By: MIGUEL Folic Acid (Folic Acid 1 Mg Tablet) 1 mg PO DAILY [facility] Last Admin: 10/21/22 07:15 Dose: 1 mg Documented By: FISH Gabapentin (Gabapentin 100 Mg Capsule) 100 mg PO BID@0800,1500 [facility] Gabapentin (Gabapentin 100 Mg Capsule) 200 mg PO BEDTIME [facility] Lidocaine (Lidocaine 4 % Patch Adh..Patch) 1 patch TRANSDERMA DAILY PRN; Protocol PRN Reason: Pain, Moderate(Pain Scale 4-6) Last Admin: 10/18/22 08:36 Dose: 1 patch Documented By: COTEMA Lidocaine (Lidocaine 4 % Patch Adh..Patch) 1 patch TRANSDERMA DAILY [facility] Last Admin: 10/21/22 07:16 Dose: 1 patch Documented By: FISH Magnesium Oxide (Magnesium Oxide 400 Mg Tablet) 800 mg PO BIDPC [facility] Last Admin: 10/21/22 07:15 Dose: 800 mg Documented By: FISH Omeprazole (Omeprazole 20 Mg Capsule.Dr) 20 mg PO DAILY@0630 [facility] Last Admin: 10/21/22 07:52 Dose: 20 mg Documented By: FISH Ondansetron HCl (Ondansetron Hcl 4 Mg/2 Ml Vial) 4 mg IVPUSH Q8H PRN PRN Reason: Nausea and Vomiting Last Admin: 10/20/22 21:39 Dose: 4 mg Documented By: MIGUEL Pharmacy Consult (Consult Rx Etoh Phenob Im/Po) 1 each MISCELLANE ONCE PRN; Protocol PRN Reason: Consult order Phenobarbital (Phenobarbital 15 Mg Tablet) 15 mg PO DAILY [facility] Stop: 10/22/22 09:01 Last Admin: 10/21/22 07:15 Dose: 15 mg Documented By: FISH Simethicone (Simethicone 80 Mg Tab.Chew) 80 mg PO QIDWMHS PRN PRN Reason: Gas Last Admin: 10/19/22 13:34 Dose: 80 mg Documented By: WADE Sodium Chloride (0.9 % Sodium Chloride Flush 3 Ml Syringe) 3 ml IVFLUSH QSHIFT [facility] Last Admin: 10/21/22 07:14 Dose: 3 ml Documented By: FISH Thiamine HCl (Thiamine Hcl 100 Mg Tablet) 100 mg PO DAILY [facility] Last Admin: 10/21/22 07:15 Dose: 100 mg Documented By: FISH Labs 10/17/22 05:22 10/21/22 05:17 Labs: Laboratory Results - last 24 hr 10/21/22 05:17 Anion Gap 17 Estim Creat Clear Calc 149.5 Estimated GFR > 60 Random Glucose 99 Calcium 8.9 Magnesium 1.8 Assessment and Plan (1) Paresthesia of bilateral legs: Status: Acute Assessment and Plan: (2) Weakness: Status: Acute (3) Hypomagnesemia: Status: Acute Plan d6 52yo M with AUD presenting with paresthesias and admitted for EtOH withdrawal AUD with EtOH withdrawal - continue phenobarbital taper - thiamine, folate - declined support from Recovery Team/Addiction Medicine polyneuropathy - TSH slightly high but free T4 normal - increase gabapentin 100 mg qhs -> 100 mg tid -> 100 mg bid + 200 mg qhs - suspect EtOH-related, should have outpt Neuro eval with NCS/EMG hypoMg - repleted, continue PO maintenance dose hypoK - repleted chronic pain - gabapentin - planned back surgery in mid-Oct VTE ppx - LMWH dispo - STR In my clinical judgment, the patient requires continued inpatient hospitalization for the following reasons: STR placement Time Spent With Patient Time: Total time managing care of this patient today ____ minutes. Quality Stroke Does the patient have a stroke diagnosis?: No VTE Prior VTE?: No VTE Risk Level:: Medical - moderate - high VTE Device Contraindication: Treatment Not Indicated VTE Drug Contraindication: N/A - Med Ordered
--- NOTE | 2022-10-21 15:10 | MHC.CM.PN ---
A bed offer was received from [facility] for tomorrow. It was the only bed offer received. The patient has accepted the bed offer. The MD is aware that a bed has been obtained for tomorrow. BARI Lorenzo via S.
[2022-10-21 16:00] VITALS: BP 102/71; PULSE 81; RESP 16; TEMP 36.4; O2SAT 97
[2022-10-21 20:00] VITALS: BP 105/67; PULSE 85; RESP 18; TEMP 36.7; O2SAT 97
[2022-10-21] MEDS: Gabapentin 100 MG CAPSULE 200 MG PO (20:16)
[2022-10-22 04:00] VITALS: BP 113/74; PULSE 78; RESP 18; TEMP 36.2; O2SAT 96
[2022-10-22] MEDS: Acetaminophen 325 MG TABLET 650 MG PO ×2 (05:24→19:40)
[2022-10-22] MEDS: Omeprazole 20 MG CAPSULE.DR PO (05:24)
[2022-10-22 07:04] VITALS: BP 111/75; PULSE 70; RESP 16; TEMP 36.6; O2SAT 96
[2022-10-22] MEDS: Lidocaine 4 % Patch ADH..PATCH 1 PATCH TRANSDERMA (08:34)
[2022-10-22] MEDS: Gabapentin 100 MG CAPSULE PO ×2 (08:34→14:06)
[2022-10-22] MEDS: Magnesium Oxide 400 MG TABLET 800 MG PO ×2 (08:34→16:56)
[2022-10-22] MEDS: Folic Acid 1 MG TABLET PO (08:34)
[2022-10-22] MEDS: Thiamine HCL 100 MG TABLET PO (08:34)
[2022-10-22] MEDS: PHENobarbitaL 15 MG TABLET PO (08:34)
--- NOTE | 2022-10-22 10:30 | P.DS_ITS ---
DS: Providers Provider Date of Service: 10/23/22 Date of admission: 10/16/22 22:32 Date of discharge: 10/23/22 Primary care physician: LAUREN Moreno- Consults: 10/17/22 08:23 Addiction Medicine Routine Consulting Provider: Addiction Covering Reason for consultation: Alcohol use disorder DS: Diagnosis Discharge Diagnosis (1) Paresthesia of bilateral legs: Status: Acute (2) Weakness: Status: Acute (3) Hypomagnesemia: Status: Acute (4) Alcohol withdrawal: Status: Acute (5) Alcohol dependence with withdrawal: Status: Acute (6) Alcohol use disorder: Status: Acute (7) Polyneuropathy: Status: Acute DS: Summary Hospital Course Hospital Course: from admission H+P, 10/16/22, by hospitalist Bear Cifuentes MD: 52-year-old male with past medical history of sciatica, degenerative disc disease, alcohol abuse, and chronic pancreatitis comes into the hospital complaints of paresthesia in his legs and hands.? Patient reports that he has paresthesia from knees down, he has pins and needles, to the point where he is now unable to walk on his feet due to the will pain and the sensation, he is also having the same numbness tingling, in his arms from the elbows down to his fingers.? Bilaterally Symptoms started about 1 week ago and are now worsening.? He is also reporting alcohol withdrawal at this point. Otherwise denies any chest pain, no shortness of breath, no vision change, no headache, no significant weakness in 1 side of the body, no slurred speech, no facial droop.? No abdominal pain nausea or vomiting, no diarrhea constipation, no urinary symptoms and no lower extremity edema On arrival to the ED hemodynamically stable with no significant abnormal vitals Labs are significant for WBC count of 7.1, hemoglobin of 11.9, hematocrit 34.5, MCV of 103.3, potassium of 3.2, magnesium of 1.0, AST of 86, ALT of 23, UA positive for nitrites and WBC no bacteria UDS negative, on alcohol level negative Patient was started on phenobarb lb admitted for further management 52yo M with AUD presenting with paresthesias and admitted to the medical- surgical floor for EtOH withdrawal. Hospital course by problem: AUD with EtOH withdrawal - treated with phenobarbital taper - given thiamine, folate - declined support from Recovery Team/Addiction Medicine polyneuropathy - TSH slightly high but free T4 normal - increased gabapentin 100 mg qhs -> 100 mg tid -> 100 mg bid + 200 mg qhs -> 200 mg bid + 300 mg qhs. Could consider pregabalin in the future if pain relief goals not met with gabapentin. - suspect EtOH-related but should have outpt Neuro eval with NCS/EMG hypoMg - repleted, placed on 800 mg bid due to persistence hypoK - repleted chronic pain [chronic intractable low back pain with an L5 radiculopathy due to severe L5-S1 lumbar degenerative disc disease left L5 severe foraminal stenosis] - gabapentin as above - planned back surgery in mid-Oct Due to weakness from polyneuropathy, he was discharged to a SNF for short-term rehabilitation. He should keep his appointment for planned minimally invasive L5-S1 fusion on 11/01/[address] Sawant at [facility] Time Spent with Patient Time attestation: Total time managing care of this patient today ___40_ minutes. Discharge coordination time: Greater than 30 minutes Quality: Safe Use of Opioids Does Pt have an Active Cancer Diagnosis on the Problem List?: No Quality: Stroke Does the patient have a stroke diagnosis?: No Physical Exam Vital Signs: Vital Signs: Temp Pulse Resp BP Pulse Ox O2 Del Method 97.7 F 83 15 111/64 94 Room Air 10/23/22 08:00 10/23/22 08:00 10/23/22 08:00 10/23/22 08:00 10/23/22 08:00 10/23/22 08:00 Gen: in no acute distress HEENT: sclera anicteric, moist mucus membranes Neck: supple Lungs: clear to auscultation bilaterally Heart: regular rate and rhythm, no murmurs Abd: soft, non-tender, non-distended Ext: no edema Skin: warm/well-perfused Neuro: alert and oriented x3, normal strength throughout Psych: appropriate affect DS: Data Data Completed and Pending Completed studies during hospitalization [Text1]: Laboratory Results WBC 7.1 X10*3/uL (4.8-10.8) 10/17/22 05:22 RBC 3.18 X10*6/uL (4.60-5.80) L 10/17/22 05:22 Hgb 11.2 g/dl (14.0-18.0) L 10/17/22 05:22 Hct 33.0 % (42.0-52.0) L 10/17/22 05:22 MCV 103.8 fL (80.0-98.0) H 10/17/22 05:22 MCH 35.2 pg (27.0-33.0) H 10/17/22 05:22 MCHC 33.9 g/dl (31.0-36.0) 10/17/22 05:22 RDW 13.1 % (11.0-16.0) 10/17/22 05:22 Plt Count 113 X10*3/uL (160-400) L 10/17/22 05:22 MPV 11.2 fL (9.4-12.4) 10/17/22 05:22 Immature Gran % (Auto) 0.3 % (0.0-0.4) 10/17/22 05:22 Neut % (Auto) 65.6 % (45-73) 10/17/22 05:22 Lymph % (Auto) 25.6 % (20-40) 10/17/22 05:22 [place] % (Auto) 7.0 % (2-11) 10/17/22 05:22 Eos % (Auto) 0.7 % (0-4) 10/17/22 05:22 Baso % (Auto) 0.8 % (0-2) 10/17/22 05:22 Lymph # (Auto) 1.8 X10*3/uL (1.2-4.9) 10/17/22 05:22 [place] # (Auto) 0.5 X10*3/uL (0.1-1.2) 10/17/22 05:22 Eos # (Auto) 0.1 X10*3/uL (0.0-0.4) 10/17/22 05:22 Baso # (Auto) 0.1 X10*3/uL (0.0-0.2) 10/17/22 05:22 Abs Immat Gran (auto) 0.02 X10*3/uL (0.00-0.03) 10/17/22 05:22 Absolute Neuts (auto) 4.7 x10*3/uL (2.0-8.3) 10/17/22 05:22 Absolute Nucleated RBC 0.000 X10*3/uL (0.0-0.012) 10/17/22 05:22 Nucleated RBC % (auto) 0.0 /100WBC (0.0-0.2) 10/17/22 05:22 Smear Tech's Comments VERIFIED 10/16/22 18:54 Sodium 135 mmol/L (135-145) 10/21/22 05:17 Potassium 3.8 mmol/L (3.3-5.1) 10/21/22 05:17 Chloride 98 mmol/L (96-108) 10/21/22 05:17 Carbon Dioxide 24 mmol/L (22-29) 10/21/22 05:17 Anion Gap 17 (12-20) 10/21/22 05:17 BUN 7 mg/dL (9-16) L 10/21/22 05:17 Creatinine 0.59 mg/dL (0.5-1.4) 10/21/22 05:17 Estim Creat Clear Calc 149.5 10/21/22 05:17 Estimated GFR > 60 10/21/22 05:17 Random Glucose 99 mg/dL (60-115) 10/21/22 05:17 Calcium 8.9 mg/dL (8.4-10.2) 10/21/22 05:17 Magnesium 1.8 mg/dL (1.6-2.6) 10/21/22 05:17 Total Bilirubin 2.3 mg/dL (0.0-1.0) H 10/16/22 18:54 Direct Bilirubin 1.3 mg/dL (0.0-0.5) H 10/16/22 18:54 AST 86 U/L (5-37) H 10/16/22 18:54 ALT 23 U/L (0-40) 10/16/22 18:54 Alkaline Phosphatase 175 U/L (39-117) H 10/16/22 18:54 Total Protein 6.5 g/dL (6.5-8.0) 10/16/22 18:54 Albumin 3.0 g/dL (3.5-5.0) L 10/16/22 18:54 Vitamin B12 687 pg/mL (200-900) 10/16/22 22:34 Folate 6.4 ng/mL (> or = 4.0) 10/16/22 22:34 TSH 4.64 uIU/mL (0.32-4.0) H 10/17/22 05:22 Thyroxine (T4) 10.5 ug/dL (4.5-12.0) 10/18/22 05:22 Urine Color DK YELLOW 10/16/22 20:42 Urine Appearance Cloudy 10/16/22 20:42 Urine pH 6.0 (5.0-9.0) 10/16/22 20:42 Ur Specific [place] 1.020 (1.005-1.025) 10/16/22 20:42 Urine Protein Trace mg/dL (Neg-Trace) 10/16/22 20:42 Urine Glucose (UA) Negative mg/dL (Negative) 10/16/22 20:42 Urine Ketones 40 mg/dL (Negative) 10/16/22 20:42 Urine Blood Negative (Negative) 10/16/22 20:42 Urine Nitrite Positive (Negative) H 10/16/22 20:42 Ur Leukocyte Esterase Negative (Negative) 10/16/22 20:42 Urine RBC 3-5 /HPF (0-2) H 10/16/22 20:42 Urine WBC 0-5 /HPF (0-5) 10/16/22 20:42 Ur Squamous Epith Cells 3-5 /HPF (0-2) 10/16/22 20:42 Urine Bacteria None Seen (None Seen) 10/16/22 20:42 Hyaline Casts 3-5 /LPF (0-2) 10/16/22 20:42 Urine Opiates Screen Not Detected (Not Detect) 10/16/22 20:42 Urine Fentanyl Screen Not Detected (Not Detect) 10/16/22 20:42 Ur Barbiturates Screen Not Detected (Not Detect) 10/16/22 20:42 Ur Phencyclidine Scrn Not Detected (Not Detect) 10/16/22 20:42 Ur Amphetamines Screen Not Detected (Not Detect) 10/16/22 20:42 U Benzodiazepines Scrn Not Detected (Not Detect) 10/16/22 20:42 Urine Cocaine Screen Not Detected (Not Detect) 10/16/22 20:42 U Marijuana (THC) Screen Not Detected (Not Detect) 10/16/22 20:42 Ethyl Alcohol < 10 mg/dL 10/16/22 18:54 Discharge Plan Discharge Anticipated Discharge Date/Time: 10/22/22 10:18 Patient Disposition: Xfer SNF Discharge Diagnosis: AUD with EtOH withdrawal polyneuropathy hypoMg hypoK chronic pain Referrals: [facility] Family Medicine [Provider Group] (Call to establish and follow up with a primary care provider. If you already have a primary care provider, please follow up with them.) [facility] Primary Care, R[facility] [Provider Group] (Call to establish and follow up with a primary care provider. If you already have a primary care provider, please follow up with them.) [facility] Primary Care,Jg [Provider Group] (Call to establish and follow up with a primary care provider. If you already have a primary care provider, please follow up with them.) [facility] [Outside] - 1 Week (TRANSFER FOR SHORT TERM REHAB) Gulshan Chanel FNP- [Primary Care Provider] - 1 Week Yara Roth MD [Physician] - 2 Weeks (for NCV/EMG for evaluation of neuropathy ) Discharge Medications: New acetaminophen 325 mg Tablet 650 mg PO Q6H PRN (Reason: Pain, Mild (Pain Scale 1-3)) Qty: 1 0RF magnesium oxide 400 mg (241.3 mg magnesium) Tablet 800 mg PO BIDPC Qty: 1 0RF thiamine mononitrate (vit B1) 100 mg Tablet 100 mg PO DAILY Qty: 1 0RF gabapentin 100 mg Capsule 300 mg PO BEDTIME Qty: 1 0RF gabapentin 100 mg Capsule 200 mg PO BID@0800,1500 Qty: 1 0RF Continued albuterol sulfate 90 mcg/actuation HFA aerosol inhaler 2 inh inhalation QID PRN (Reason: shortness of breath or wheezing) 30 Days Qty: 8.5 3RF omeprazole 20 mg capsule,delayed release(DR/EC) 20 mg PO DAILY 90 Days Qty: 90 1RF ibuprofen 800 mg tablet 800 mg PO Q8H PRN (Reason: pain) 20 Days Qty: 60 0RF lidocaine 4 % Adhesive Patch,Medicated 1 patch TOPICAL DAILY PRN (Reason: Pain) folic acid 1 mg Tablet 1 mg PO DAILY Qty: 30 0RF lidocaine 5 % adhesive patch,medicated 1 patch topical DAILY Qty: 15 0RF Rx Instructions: leave on most painful area for up to 12 hrs Discontinued magnesium oxide 400 mg (241.3 mg magnesium) Tablet 400 mg PO DAILY Qty: 30 0RF gabapentin 100 mg Capsule 100 mg PO BEDTIME Qty: 30 0RF Discharge Orders: Discharge Order (Routine); Ordered 10/22/22 Ordered By: Oscar Llanes Diet: Advance to usual diet Activity on Discharge: no alcohol Stand Alone Forms: Patient Portal Discharge page Print Language: Taiwanese Care Plan Goals: sobriety workup of neuropathy Health Concerns: alcohol use disorder with withdrawal - avoid alcohol completely - take thiamine and folate polyneuropathy - gabapentin - Neurology referral for NCS - avoid alcohol completely hypomagnesemia - take magnesium oxide 800 mg twice daily hypokalemia - repleted chronic pain - gabapentin - back surgery planned for mid-October Short-term rehabilitation Please follow up with your primary care doctor within 1 week of discharge from SNF. Return to the hospital if you experience recurrent or worsening symptoms. Plan of Treatment: see above Assessment: See Discharge Summary. Patient Instructions: Alcohol Intoxication (ED), Chronic Back Pain (DC)
[2022-10-22 15:28] VITALS: BP 102/70; PULSE 74; RESP 17; TEMP 36.6; O2SAT 97
--- NOTE | 2022-10-22 15:37 | MHC.CM.PN ---
DP: PT HAS BEEN MEDICALLY CLEARED FOR DC TO STR AT [facility]. AWAITING INSURANCE AUTH FROM [place], RN AWARE.
--- NOTE | 2022-10-22 16:38 | P.PNIM_ITS ---
Subjective Subjective Date of Service: 10/22/22 Interval History: accepted at [facility] for STR, awaiting authorization by insurance ongoing paresthesias completed phenobarbital taper today Review of Systems Review of Systems: Yes all other systems are reviewed and are negative Physical Exam Vital Signs: Vital Signs: Last Vital Signs Temp 97.9 F 10/22/22 15:28 Pulse 74 10/22/22 15:28 Resp 17 10/22/22 15:28 BP 102/70 10/22/22 15:28 Pulse Ox 97 10/22/22 15:28 O2 Del Method Room Air 10/22/22 15:28 BMI result Body Mass Index 27.6 Gen: in no acute distress HEENT: sclera anicteric, moist mucus membranes Neck: supple Lungs: clear to auscultation bilaterally Heart: regular rate and rhythm, no murmurs Abd: soft, non-tender, non-distended Ext: no edema Skin: warm/well-perfused Neuro: alert and oriented x3 Psych: appropriate affect Objective Data Active Medications Acetaminophen (Acetaminophen 325 Mg Tablet) 650 mg PO Q6H PRN PRN Reason: Pain, Mild (Pain Scale 1-3) Last Admin: 10/22/22 05:24 Dose: 650 mg Documented By: MIGUEL Albuterol Sulfate (Albuterol Sulfate 90 Mcg 8 Gm Inhaler) 2 puff INHALE RQID PRN PRN Reason: shortness of breath or wheezing Diphenhydramine HCl (Diphenhydramine Hcl 25 Mg Capsule) 50 mg PO Q6H PRN PRN Reason: Itching Last Admin: 10/19/22 13:34 Dose: 50 mg Documented By: WADE Docusate Sodium (Docusate Sodium 100 Mg Capsule) 100 mg PO DAILY PRN PRN Reason: Constipation Enoxaparin Sodium (Enoxaparin Sodium 40 Mg/0.4 Ml Syringe) 40 mg SUBCUT Q24H [facility] Last Admin: 10/21/22 22:40 Dose: Not Given Documented By: MIGUEL Non-Admin Reason: Patient Refused Folic Acid (Folic Acid 1 Mg Tablet) 1 mg PO DAILY [facility] Last Admin: 10/22/22 08:34 Dose: 1 mg Documented By: SOFFAA Gabapentin (Gabapentin 100 Mg Capsule) 100 mg PO BID@0800,1500 [facility] Last Admin: 10/22/22 14:06 Dose: 100 mg Documented By: RAMÓN Gabapentin (Gabapentin 100 Mg Capsule) 200 mg PO BEDTIME [facility] Last Admin: 10/21/22 20:16 Dose: 200 mg Documented By: MIGUEL Lidocaine (Lidocaine 4 % Patch Adh..Patch) 1 patch TRANSDERMA DAILY PRN; Protocol PRN Reason: Pain, Moderate(Pain Scale 4-6) Last Admin: 10/18/22 08:36 Dose: 1 patch Documented By: COTEMA Lidocaine (Lidocaine 4 % Patch Adh..Patch) 1 patch TRANSDERMA DAILY [facility] Last Admin: 10/22/22 08:34 Dose: 1 patch Documented By: RAMÓN Magnesium Oxide (Magnesium Oxide 400 Mg Tablet) 800 mg PO BIDPC [facility] Last Admin: 10/22/22 08:34 Dose: 800 mg Documented By: RAMÓN Omeprazole (Omeprazole 20 Mg Capsule.Dr) 20 mg PO DAILY@0630 [facility] Last Admin: 10/22/22 05:24 Dose: 20 mg Documented By: MIGUEL Ondansetron HCl (Ondansetron Hcl 4 Mg/2 Ml Vial) 4 mg IVPUSH Q8H PRN PRN Reason: Nausea and Vomiting Last Admin: 10/20/22 21:39 Dose: 4 mg Documented By: MIGUEL Pharmacy Consult (Consult Rx Etoh Phenob Im/Po) 1 each MISCELLANE ONCE PRN; Protocol PRN Reason: Consult order Simethicone (Simethicone 80 Mg Tab.Chew) 80 mg PO QIDWMHS PRN PRN Reason: Gas Last Admin: 10/19/22 13:34 Dose: 80 mg Documented By: GRAZJUANPABLO Sodium Chloride (0.9 % Sodium Chloride Flush 3 Ml Syringe) 3 ml IVFLUSH QSHIFT [facility] Last Admin: 10/22/22 15:09 Dose: Not Given Documented By: RAMÓN Non-Admin Reason: See Note Thiamine HCl (Thiamine Hcl 100 Mg Tablet) 100 mg PO DAILY [facility] Last Admin: 10/22/22 08:34 Dose: 100 mg Documented By: RAMÓN Labs 10/17/22 05:22 10/21/22 05:17 Assessment and Plan (1) Paresthesia of bilateral legs: Status: Acute Assessment and Plan: (2) Weakness: Status: Acute (3) Hypomagnesemia: Status: Acute Plan d7 52yo M with AUD presenting with paresthesias and admitted for EtOH withdrawal AUD with EtOH withdrawal - complete phenobarbital taper today - thiamine, folate - declined support from Recovery Team/Addiction Medicine, appears to be in denial regarding severity of his EtOH-related complications polyneuropathy - TSH slightly high but free T4 normal - increase gabapentin 100 mg qhs -> 100 mg tid -> 100 mg bid + 200 mg qhs - suspect EtOH-related, should have outpt Neuro eval with NCS/EMG hypoMg - repleted, continue PO maintenance dose hypoK - repleted chronic pain - gabapentin - planned back surgery with Dr Sawant 11/01/22 VTE ppx - [facility] dispo - STR In my clinical judgment, the patient requires continued inpatient hospitalization for the following reasons: awaiting insurance authorization for placement Time Spent With Patient Time: Total time managing care of this patient today ___30_ minutes. Quality Stroke Does the patient have a stroke diagnosis?: No VTE Prior VTE?: No VTE Risk Level:: Medical - moderate - high VTE Device Contraindication: Treatment Not Indicated VTE Drug Contraindication: N/A - Med Ordered
[2022-10-22 19:14] VITALS: BP 112/67; PULSE 89; RESP 17; TEMP 36.6; O2SAT 98
[2022-10-22] MEDS: Gabapentin 100 MG CAPSULE 200 MG PO (20:31)
[2022-10-22] MEDS: Enoxaparin Sodium 40 MG/0.4 ML SYRINGE SUBCUT (22:46)
[2022-10-22 23:40] VITALS: BP 107/63; PULSE 82; RESP 16; TEMP 36.5; O2SAT 96
[2022-10-22] MEDS: Melatonin 3 MG TABLET 6 MG PO (23:52)
[2022-10-23] MEDS: Omeprazole 20 MG CAPSULE.DR PO (05:34)
[2022-10-23 08:00] VITALS: BP 111/64; PULSE 83; RESP 15; TEMP 36.5; O2SAT 94
[2022-10-23] MEDS: Magnesium Oxide 400 MG TABLET 800 MG PO (08:53)
[2022-10-23] MEDS: Lidocaine 4 % Patch ADH..PATCH 1 PATCH TRANSDERMA (08:53)
[2022-10-23] MEDS: Folic Acid 1 MG TABLET PO (08:53)
[2022-10-23] MEDS: Thiamine HCL 100 MG TABLET PO (08:54)
[2022-10-23] MEDS: Gabapentin 100 MG CAPSULE PO (08:54)
--- NOTE | 2022-10-23 11:03 | MHC.CM.PN ---
[facility] HAS RECEIVED INSURANCE AUTH PT WILL DC TO STR AT 1200 HOURS VIA [facility]
== END 2022-10-23 12:25 | disposition skilled nursing facility (03) | DRG 425 ==
LOC: HO.ED 10-16 22:11 → HO.EDOVER 10-16 22:41 → HO.S3 10-16 23:22
PROVIDERS: Nurse Practitioner Family; Student in an Organized Health Care Education/Training Program; Admitting Provider Internal Medicine; Emergency Provider Emergency Medicine Emergency Medical Services; PCP Nurse Practitioner Family; Visit Provider Family Medicine
DX: E87.6 Hypokalemia (principal); G62.1 Alcoholic polyneuropathy; E83.42 Hypomagnesemia; F17.210 Nicotine dependence, cigarettes, uncomplicated; F10.139 Alcohol abuse with withdrawal, unspecified; F10.188 Alcohol abuse with other alcohol-induced disorder; M54.9 Dorsalgia, unspecified; Z71.6 Tobacco abuse counseling; Z59.02 Unsheltered homelessness; Z79.899 Other long term (current) drug therapy
CPT/HCPCS: 36415; 80048; 80076; 80307; 81001; 81003; 82607; 82746; 83735; 84436; 84443; 85025; 87086; 97116; 97161; 99285; J1650; J1885; J2405; J2560; J3411; J3475

== ENCOUNTER → 2022-10-16 22:32 | Outpatient (BNV) | payer OTHER, SELFPAY | PROVIDERS: Admitting Provider Internal Medicine; Emergency Provider Emergency Medicine Emergency Medical Services; Visit Provider Internal Medicine | DX: R20.2 Paresthesia of skin (principal); R53.1 Weakness; E83.42 Hypomagnesemia | CPT/HCPCS: 99223; 99231; 99232; 99239 ==

== ENCOUNTER 2022-11-02 09:39 | Emergency (ER) | payer OTHER, SELFPAY ==
[2022-11-02 09:47] VITALS: BP 103/74; BP 96/70; PULSE 78; PULSE 81; RESP 20; TEMP 36.5; O2SAT 97; O2SAT 98; BMI 24.5
--- NOTE | 2022-11-02 09:54 | ED.GENADULT ---
HPI - General Adult General Chief complaint: ETOH/Substance Use Stated complaint: From SNF w/ ETOH and unknown oxycodone Time Seen by Provider: 11/02/22 09:54 Source: patient, EMS, RN notes reviewed and old records reviewed Mode of arrival: EMS History of Present Illness HPI narrative: 52-year-old male with a past medical history of alcohol use disorder, gastritis, alcoholic hepatitis, recently discharged from our facility for EtOH withdrawal and paresthesias sent to SNF, presenting to the ED today from SNF for suspected EtOH and Oxycodone ingestion. Per report from [facility] staff found patient with a red face, slurring words, ETOH odor on breath with empty nip bottles in bed. Also found Oxycodone bottle with 1 pill left, unclear if patient ingested any/or how many. Patient denies any substance use today, admits to drinking 4 nips daily, recently 3-4 every other day. denies injury/ trauma or fall, abdominal pain, nausea/vomiting Onset (ago): unknown Related Data Home Medications Medication Instructions Recorded Confirmed lidocaine 4 % topical patch 1 patch topical DAILY PRN Pain 09/22/22 10/17/22 Previous Rx's Medication Instructions Recorded albuterol sulfate 90 mcg/actuation 2 inh inhalation QID PRN shortness 07/08/22 aerosol inhaler of breath or wheezing 30 days #8.5 grams folic acid 1 mg tablet 1 mg PO DAILY #30 tabs 10/01/22 omeprazole 20 mg capsule,delayed 20 mg PO DAILY 90 days #90 caps 10/05/22 release lidocaine 5 % topical patch 1 patch topical DAILY #15 ea 10/07/22 ibuprofen 800 mg tablet 800 mg PO Q8H PRN pain 20 days #60 10/15/22 tabs acetaminophen 325 mg tablet 650 mg PO Q6H PRN Pain, Mild (Pain 10/22/22 Scale 1-3) #1 tab magnesium oxide 400 mg (241.3 mg 800 mg PO BIDPC #1 tab 10/22/22 magnesium) tablet thiamine mononitrate (vit B1) 100 100 mg PO DAILY #1 tab 10/22/22 mg tablet gabapentin 100 mg capsule 200 mg PO BID@0800,1500 #1 cap 10/23/22 gabapentin 100 mg capsule 300 mg PO BEDTIME #1 cap 10/23/22 Allergies Allergy/AdvReac Type Severity Reaction Status Date / Time No Known Allergies Allergy Verified 08/25/22 14:53 Review of Systems Review of Systems: Constitutional: No Fever, No Chills, No Fatigue, No Malaise ENT/Mouth: No Ear Pain, No Nasal Congestion, No sore throat, No Rhinorrhea, No Swallowing Difficulty Eyes: No Eye Pain, No Swelling, No Redness, No Vision Changes Cardiovascular: No Chest Pain, No SOB, No Palpitations Respiratory: No Cough, No Sputum, No Dyspnea Gastrointestinal: No Nausea, No Vomiting, No Diarrhea, No Constipation, No Abdominal pain Genitourinary: No Dysuria, No Urinary Frequency, No Hematuria Musculoskeletal: No joint pain, No Myalgias, No Joint Swelling Skin: No Skin Lesions, No rash Neuro: No Weakness, No Numbness, No Loss of Consciousness, No Headache Psych: No Anxiety/Panic, No Depression, No SI/HI/AH/VH, + Social Issues Yes all other systems are reviewed and are negative Constitutional: Constitutional: Reports as per [facility] Past Medical History Attestation statement: The following information was validated with the patient. Source: old records reviewed Medical History Acute alcoholic hepatitis Acute bronchitis Alcohol abuse Alcohol withdrawal Asthma Autoimmune disease COVID-19 virus RNA test result positive at limit of detection Depression Edema Electrolyte imbalance Elevated liver enzymes Lyme disease Neuropathy Pancreatitis Right hand pain Sciatica Screening PSA (prostate specific antigen) Swelling of both lower extremities Vomiting Weakness Surgical History No pertinent past surgical history Family History Family History Father Heart attack Mother No problems noted. Sister No problems noted. Daughter No problems noted. Social History Social History Household Members: Spouse Housing: Homeless Housing Other:: Patient is homeless, living in a small tent with his and dog Are you a primary neonatal critical care nurse to a significant other at home: No Do you presently have visiting nurse or other home services: No Alcohol intake: current Alcohol intake frequency: a few times a week Alcohol type: hard liquor Patient Tobacco Use Status: Current everyday Tobacco user Tobacco use type: Cigarette Cigarette Packs Per Day: 1 Cigarettes Per Day: 20.0 Years Smoked: 41 Smoked in Last 30 Days: Yes e-Cigarette/Vaping Use: Never Used Second Hand Smoke Exposure: Yes Substance Use Type: Marijuana Advance Directives: Yes Advance Directives on File: Yes Advance Directives Date on File: 09/29/22 service: Yes Current occupational status: unemployed Cognitive needs: No Hearing needs: No Vision needs: No Physical Exam ED Vital Signs: Vital Signs - 24 hr 11/02/22 09:47 Temperature 97.7 F Pulse Rate 78 Respiratory Rate 20 Blood Pressure 96/70 Pulse Oximetry 97 Oxygen Delivery Method Room Air BMI result Body Mass Index 24.5 Const Other: + ETOH odor on breath, appears intoxicated General: cooperative, healthy appearing, no acute distress and intoxicated appearing Orientation/consciousness: patient oriented x3 Limitations: no limitations HENMT Head: Yes normal to inspection and Yes atraumatic Ears: hearing grossly normal bilaterally General nose exam: Normal external nose present Face and sinus: Yes normal facial exam Eyes General: appearance normal, both eyes and all related structures EOM: EOMs intact bilaterally Neck Neck: Yes normal visual inspection and Yes no meningeal signs Resp Effort & Inspection: normal respiratory effort and no respiratory distress Auscultation: clear to auscultation bilaterally Cardio Rate: regular rate Heart sounds: S1 normal heart sound present and S2 normal heart sound present GI Inspection: Yes normal to inspection Palpation (GI): Soft to palpation, nontender, no guarding and not rigid General: Yes no CVA tenderness Back/Spine/Pelvis Back: no CVA tenderness Skin Rashes: no rashes Wounds: no wounds Neuro Other: no tongue fasciculations or active tremor General: patient oriented x3, tone normal, no meningeal signs and CN's II-XI intact bilaterally Cranial nerves: Yes CN's II-XII intact bilaterally Gait exam (Neuro): Normal gait present Extrem General: Yes normal to inspection Course Course Course Narrative: - patient uncooperative, ambulating around the ED, redirected back to room, contacted and will be picking patient up from the ED. > 1227-- in the emergency department to provide a safe ride for patient. Ambulating with steady gait, clinically sober & safe for discharge w/ride present. patient refused labs. Patient did not wait for discharge paperwork Medical Decision Making Medical Decision Making MDM Narrative: 52-year-old male with a past medical history of alcohol use disorder, gastritis, alcoholic hepatitis, recently discharged from our facility for EtOH withdrawal and paresthesias sent to SNF, presenting to the ED today from SNF for suspected EtOH and Oxycodone ingestion. On exam BP on lower side, ETOH odor on breath, appears intoxicated however ambulating with steady gait. Speech is clear. Concern for ETOH/ polysubstance ingestion. Low suspicion for CVA/TIA, ICH. Per facility with oxycodone prescription bottle, low suspicion for Tylenol overdose. plan: Labs, drug screen, take home Narcan Please refer to course for remaining clinical decision making, interpretation of labs/imaging results, and discussions with consultants and/or family members. Differential Diagnosis Differential Diagnoses: The differential diagnosis associated with the presentation includes As above Admission/Observation Consideration of admission/observation: Escalation of care including admission/observation considered Lab Data MDM Lab Attestation statement: I reviewed the patient's lab results. Radiology Impression Discussion of test interpretation with radiology: I have reviewed the radiologist's reading. External Record Review External record reviewed: Inpatient record, Office record, Outpatient record, Prior outpatient labs, Prior outpatient radiology, Primary care record and Outside ED record Tests considered The following testing was considered but not selected: As above Discharge Plan Discharge Clinical Impression: Alcohol intoxication, Polysubstance abuse Patient Disposition: Home, Self-Care Instructions: Abuse of Alcohol (DC), Polysubstance Abuse (ED) Additional Instructions: avoid alcohol and drug use this can kill you Prescriptions: No Action albuterol sulfate 90 mcg/actuation HFA aerosol inhaler 2 inh inhalation QID PRN (Reason: shortness of breath or wheezing) 30 Days Qty: 8.5 3RF omeprazole 20 mg capsule,delayed release(DR/EC) 20 mg PO DAILY 90 Days Qty: 90 1RF ibuprofen 800 mg tablet 800 mg PO Q8H PRN (Reason: pain) 20 Days Qty: 60 0RF lidocaine 4 % Adhesive Patch,Medicated 1 patch TOPICAL DAILY PRN (Reason: Pain) acetaminophen 325 mg Tablet 650 mg PO Q6H PRN (Reason: Pain, Mild (Pain Scale 1-3)) Qty: 1 0RF magnesium oxide 400 mg (241.3 mg magnesium) Tablet 800 mg PO BIDPC Qty: 1 0RF thiamine mononitrate (vit B1) 100 mg Tablet 100 mg PO DAILY Qty: 1 0RF gabapentin 100 mg Capsule 300 mg PO BEDTIME Qty: 1 0RF gabapentin 100 mg Capsule 200 mg PO BID@0800,1500 Qty: 1 0RF folic acid 1 mg Tablet 1 mg PO DAILY Qty: 30 0RF lidocaine 5 % adhesive patch,medicated 1 patch topical DAILY Qty: 15 0RF Rx Instructions: leave on most painful area for up to 12 hrs Referrals: Gulshan Chanel, [employer] [facility] [Primary Care Provider] -
--- NOTE | 2022-11-02 10:32 | PC.NURSE ---
increased verble aggression, swearing at staff, difficult to redirect, security called.
--- NOTE | 2022-11-02 10:40 | PC.NURSE ---
pt is agitated, walked out of the room stated he was leaving, continues to have slurred speech and unsteady gait.
--- NOTE | 2022-11-02 10:42 | PC.NURSE ---
Pt eventually calmed and requested phone, phone given.
--- NOTE | 2022-11-02 10:49 | PC.NURSE ---
Pt called and stated she was coming to pick him up.
--- NOTE | 2022-11-02 11:43 | PC.NURSE ---
Pt is currently sleeping, no apparent discomfort noted.
== END 2022-11-02 12:47 | disposition home or self-care (01) ==
PROVIDERS: Emergency Provider Emergency Medicine; PCP Nurse Practitioner Family
DX: F10.120 Alcohol abuse with intoxication, uncomplicated (principal); Y90.9 Presence of alcohol in blood, level not specified; F19.10 Other psychoactive substance abuse, uncomplicated
CPT/HCPCS: 99283; 99285

== ENCOUNTER 2022-11-04 10:48 | Emergency (ER) | payer OTHER, SELFPAY ==
[2022-11-04 10:58] VITALS: BP 108/72; BP 114/76; PULSE 85; PULSE 89; RESP 16; TEMP 36.5; O2SAT 97; BMI 23.7
[2022-11-04 11:06] VITALS: BP 98/62; PULSE 80; RESP 16; O2SAT 97
[2022-11-04 12:00] VITALS: RESP 16
--- NOTE | 2022-11-04 12:31 | ED.BACK ---
HPI - Back Pain/Injury General Chief Complaint: Back Pain/Injury Stated Complaint: BACK PAIN,ETOH Time Seen by Provider: 11/04/22 11:27 Source: patient and EMS Mode of arrival: EMS Limitations: other (Acute intoxication) History of Present Illness HPI Narrative: 52-year-old male with history of chronic back pain, alcohol abuse presents with severe back pain. Patient apparently called EMS due to immobility secondary to his pain. Patient reports having had recent hospitalization for 2 weeks. He is currently homeless. He reports ?I am not a loser. ? 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 He denies suicidal homicidal ideation but is clearly depressed about his current situation. He is living in a tent. He also reports having had 3 term in [facility]. Currently his pain is severe. Worse with movement. The pain does not radiate. Has burning lower extremity pain. In order to treat his pain he has been drinking alcohol. He reports having had 1 shot of whiskey prior to arrival. Review of the records, patient was discharged on October 22 of this year. He had been admitted in part for alcohol withdrawal. He had been started on a phenobarbital. Patient was also diagnosed with polyneuropathy. He had been on gabapentin 100 mg at night that was increased to twice daily with the Q HS dose of 200 mg. Patient was also noted to be hypokalemic and hypomagnesemic. Related Data Home Medications Medication Instructions Recorded Confirmed lidocaine 4 % topical patch 1 patch topical DAILY PRN Pain 09/22/22 10/17/22 Previous Rx's Medication Instructions Recorded albuterol sulfate 90 mcg/actuation 2 inh inhalation QID PRN shortness 07/08/22 aerosol inhaler of breath or wheezing 30 days #8.5 grams folic acid 1 mg tablet 1 mg PO DAILY #30 tabs 10/01/22 omeprazole 20 mg capsule,delayed 20 mg PO DAILY 90 days #90 caps 10/05/22 release lidocaine 5 % topical patch 1 patch topical DAILY #15 ea 10/07/22 ibuprofen 800 mg tablet 800 mg PO Q8H PRN pain 20 days #60 10/15/22 tabs acetaminophen 325 mg tablet 650 mg PO Q6H PRN Pain, Mild (Pain 10/22/22 Scale 1-3) #1 tab magnesium oxide 400 mg (241.3 mg 800 mg PO BIDPC #1 tab 10/22/22 magnesium) tablet thiamine mononitrate (vit B1) 100 100 mg PO DAILY #1 tab 10/22/22 mg tablet gabapentin 100 mg capsule 200 mg PO BID@0800,1500 #1 cap 10/23/22 gabapentin 100 mg capsule 300 mg PO BEDTIME #1 cap 10/23/22 Allergies Allergy/AdvReac Type Severity Reaction Status Date / Time No Known Allergies Allergy Verified 08/25/22 14:53 Review of Systems Review of Systems: CONSTITUTIONAL: Denies weight loss, fever and chills. HEENT: Denies changes in vision and hearing. RESPIRATORY: Denies SOB and cough. CV: Denies palpitations no CP. GI: Denies abdominal pain, nausea, vomiting and diarrhea. : Denies dysuria and urinary frequency. MSK: + myalgia and joint pain. SKIN: Denies rash and pruritus. NEUROLOGICAL: Denies headache and syncope. PSYCHIATRIC: Denies recent changes in mood. Denies anxiety and depression. All other ROS are negative unless in HPI PMFSH Past Medical History Medical History Acute alcoholic hepatitis Acute bronchitis Alcohol abuse Alcohol withdrawal Asthma Autoimmune disease COVID-19 virus RNA test result positive at limit of detection Depression Edema Electrolyte imbalance Elevated liver enzymes Lyme disease Neuropathy Pancreatitis Right hand pain Sciatica Screening PSA (prostate specific antigen) Swelling of both lower extremities Vomiting Weakness Surgical History No pertinent past surgical history Family History Family History Father Heart attack Mother No problems noted. Sister No problems noted. Daughter No problems noted. Social History Social History Household Members: Spouse Housing: Homeless Housing Other:: Patient is homeless, living in a small tent with his and dog Are you a primary career representative to a significant other at home: No Do you presently have visiting nurse or other home services: No Alcohol intake: current Alcohol intake frequency: 3 or more drinks per day Alcohol type: hard liquor Patient Tobacco Use Status: Current everyday Tobacco user Tobacco use type: Cigarette Cigarette Packs Per Day: 1 Cigarettes Per Day: 20.0 Years Smoked: 41 Smoked in Last 30 Days: Yes e-Cigarette/Vaping Use: Never Used Second Hand Smoke Exposure: Yes Use of substances other than those prescribed or required for medical reasons: No Substance Use Type: Marijuana Advance Directives: Yes Advance Directives on File: Yes Advance Directives Date on File: 09/29/22 service: Yes Current occupational status: unemployed Cognitive needs: No Hearing needs: No Vision needs: No Physical Exam Vital Signs: Vital Signs: Last Vital Signs Temp 97.9 F 11/04/22 15:13 Pulse 86 11/04/22 16:58 Resp 16 11/04/22 16:58 BP 100/63 11/04/22 16:58 Pulse Ox 96 11/04/22 16:58 O2 Del Method Room Air 11/04/22 16:58 BMI result Body Mass Index 23.7 GEN: Well developed, acute distress, alert, slurred speech, HEENT: Normocephalic, atraumatic, normal external ears, nose appears normal, no oropharyngeal edema or exudates, poor dentition Eyes: Normal to appearance Neck: Supple, no lymphadenopathy Respiratory: Talks in complete sentences, no respiratory distress, clear to auscultation bilaterally Cardiovascular: Regular rate and rhythm, no murmurs rubs or gallops Abdomen: Soft, nontender, nondistended, no guarding, no rebound Back: No CVA tenderness Extremities: No clubbing cyanosis or edema Neurologic: No focal neurologic deficits, cranial nerves 2-12 intact, strength is 5/5 bilaterally Skin: No rash Course Reevaluation(s) Reevaluation #1: Patient is currently resting comfortably. The patient will be signed out to my colleague Dr. Lee. Patient is pending sobriety and re-evaluation. Time: 16:03 Medications Administered Discontinued Medications Generic Name Dose Route Start Last Admin Trade Name Freq PRN Reason Stop Dose Admin Gabapentin 300 mg 11/04/22 12:36 11/04/22 12:57 Gabapentin 300 Mg Capsule PO 11/04/22 12:37 300 mg ONCE ONE Administration Sodium Chloride 1,000 mls @ 999 mls/hr 11/04/22 12:45 11/04/22 14:53 Ns IV 11/04/22 13:45 Infused .Q1H1M HUSSEIN Infusion Sodium Chloride 1,000 mls @ 999 mls/hr 11/04/22 13:45 11/04/22 15:55 Ns IV 11/04/22 14:45 Infused .Q1H1M HUSSEIN Infusion Sodium Chloride 1,000 mls @ 999 mls/hr 11/04/22 16:00 11/04/22 16:52 Ns IV 11/04/22 17:00 999 mls/hr .Q1H1M HUSSEIN Administration Ketorolac Tromethamine 15 mg 11/04/22 12:36 11/04/22 12:59 Ketorolac Tromethamine 15 Mg/Ml Vial IVPUSH 11/04/22 12:37 15 mg ONCE ONE Administration Medical Decision Making Medical Decision Making MDM Narrative: 52-year-old male with history of chronic back pain, alcohol abuse presents with severe back pain and acute alcohol intoxication. Examination is nonfocal. Has slurred speech. Will check an alcohol level. Will try to pay manage patient's pain. Will need to frequently evaluate the patient given his intoxication status. Patient was admitted recently for alcohol withdrawal. Differential diagnosis includes chronic back pain, spinal stenosis, degenerative disc disease, radiculopathy. Patient is IV drug use, doubt epidural abscess. Denies any numbness, tingling Martha bowel bladder control. Doubt acute cauda equina syndrome. Patient also has what appears to be neuropathic symptoms consistent with neuropathy. Will do consider hospitalization depending on clinical picture. -I received sign-out from Dr. Chavarria -patient is awake, alert and oriented x3, no acute distress, ambulatory, clinically sober, patient ready for discharge -patient refuses to be discharged because he has chronic back pain and he is homeless -patient states that if we discharged him now, he will be back in the morning. I discussed with the patient that if he thinks that he needs to be seen again in the morning, we will be here Differential Diagnosis Differential Diagnoses: The differential diagnosis associated with the presentation includes (See above) Admission/Observation Consideration of admission/observation: Escalation of care including admission/observation considered Lab Data [facility] Lab Attestation statement: I reviewed the patient's lab results. 11/04/22 13:09 11/04/22 13:09 Labs: Lab Results 11/04/22 11/04/22 11/04/22 Range/Units 13:09 13:09 13:09 WBC 8.0 (4.8-10.8) X10*3/uL RBC 3.99 L D (4.60-5.80) X10*6/uL Hgb 14.0 D (14.0-18.0) g/dl Hct 42.4 D (42.0-52.0) % MCV 106.3 H (80.0-98.0) fL MCH 35.1 H (27.0-33.0) pg MCHC 33.0 (31.0-36.0) g/dl RDW 14.1 (11.0-16.0) % Plt Count 256 D (160-400) X10*3/uL MPV 9.4 (9.4-12.4) fL Immature Gran % (Auto) 0.4 (0.0-0.4) % Neut % (Auto) 55.2 (45-73) % Lymph % (Auto) 34.2 (20-40) % Cotton % (Auto) 5.8 (2-11) % Eos % (Auto) 1.8 (0-4) % Baso % (Auto) 2.6 H (0-2) % Lymph # (Auto) 2.7 (1.2-4.9) X10*3/uL Cotton # (Auto) 0.5 (0.1-1.2) X10*3/uL Eos # (Auto) 0.1 (0.0-0.4) X10*3/uL Baso # (Auto) 0.2 (0.0-0.2) X10*3/uL Abs Immat Gran (auto) 0.03 (0.00-0.03) X10*3/uL Absolute Neuts (auto) 4.4 (2.0-8.3) x10*3/uL Absolute Nucleated RBC 0.000 (0.0-0.012) X10*3/uL Nucleated RBC % (auto) 0.0 (0.0-0.2) /100WBC ESR (0-15) MM/HR Sodium 144 (135-145) mmol/L Potassium 3.9 (3.3-5.1) mmol/L Chloride 107 (96-108) mmol/L Carbon Dioxide 19 L (22-29) mmol/L Anion Gap 22 H (12-20) BUN 5 L (9-16) mg/dL Creatinine 0.60 (0.5-1.4) mg/dL Estim Creat Clear Calc 147.0 Estimated GFR > 60 Random Glucose 81 (60-115) mg/dL Lactic Acid 3.5 H* (0.5-2.0) mmol/L Lactic Acid F/U @ 2Hr (0.5-2.0) mmol/L Calcium 8.9 (8.4-10.2) mg/dL Phosphorus (2.7-4.5) mg/dL Magnesium (1.6-2.6) mg/dL Total Bilirubin 1.0 (0.0-1.0) mg/dL AST 115 H (5-37) U/L ALT 31 (0-40) U/L Alkaline Phosphatase 164 H (39-117) U/L C-Reactive Protein 2.30 H (< or = 0.50) mg/dL Total Protein 7.7 (6.5-8.0) g/dL Albumin 3.5 (3.5-5.0) g/dL Urine Color Urine Appearance Urine pH (5.0-9.0) Ur Specific [place] (1.005-1.025) Urine Protein (Neg-Trace) mg/dL Urine Glucose (UA) (Negative) mg/dL Urine Ketones (Negative) mg/dL Urine Blood (Negative) Urine Nitrite (Negative) Ur Leukocyte Esterase (Negative) Ethyl Alcohol mg/dL 11/04/22 11/04/22 11/04/22 Range/Units 13:09 13:18 15:26 WBC (4.8-10.8) X10*3/uL RBC (4.60-5.80) X10*6/uL Hgb (14.0-18.0) g/dl Hct (42.0-52.0) % MCV (80.0-98.0) fL MCH (27.0-33.0) pg MCHC (31.0-36.0) g/dl RDW (11.0-16.0) % Plt Count (160-400) X10*3/uL MPV (9.4-12.4) fL Immature Gran % (Auto) (0.0-0.4) % Neut % (Auto) (45-73) % Lymph % (Auto) (20-40) % Cotton % (Auto) (2-11) % Eos % (Auto) (0-4) % Baso % (Auto) (0-2) % Lymph # (Auto) (1.2-4.9) X10*3/uL Cotton # (Auto) (0.1-1.2) X10*3/uL Eos # (Auto) (0.0-0.4) X10*3/uL Baso # (Auto) (0.0-0.2) X10*3/uL Abs Immat Gran (auto) (0.00-0.03) X10*3/uL Absolute Neuts (auto) (2.0-8.3) x10*3/uL Absolute Nucleated RBC (0.0-0.012) X10*3/uL Nucleated RBC % (auto) (0.0-0.2) /100WBC ESR 34 H (0-15) MM/HR Sodium (135-145) mmol/L Potassium (3.3-5.1) mmol/L Chloride (96-108) mmol/L Carbon Dioxide (22-29) mmol/L Anion Gap (12-20) BUN (9-16) mg/dL Creatinine (0.5-1.4) mg/dL Estim Creat Clear Calc Estimated GFR Random Glucose (60-115) mg/dL Lactic Acid (0.5-2.0) mmol/L Lactic Acid F/U @ 2Hr 3.0 H* (0.5-2.0) mmol/L Calcium (8.4-10.2) mg/dL Phosphorus 3.5 (2.7-4.5) mg/dL Magnesium 2.0 (1.6-2.6) mg/dL Total Bilirubin (0.0-1.0) mg/dL AST (5-37) U/L ALT (0-40) U/L Alkaline Phosphatase (39-117) U/L C-Reactive Protein (< or = 0.50) mg/dL Total Protein (6.5-8.0) g/dL Albumin (3.5-5.0) g/dL Urine Color Urine Appearance Urine pH (5.0-9.0) Ur Specific [place] (1.005-1.025) Urine Protein (Neg-Trace) mg/dL Urine Glucose (UA) (Negative) mg/dL Urine Ketones (Negative) mg/dL Urine Blood (Negative) Urine Nitrite (Negative) Ur Leukocyte Esterase (Negative) Ethyl Alcohol 324 H* mg/dL 11/04/22 Range/Units 16:34 WBC (4.8-10.8) X10*3/uL RBC (4.60-5.80) X10*6/uL Hgb (14.0-18.0) g/dl Hct (42.0-52.0) % MCV (80.0-98.0) fL MCH (27.0-33.0) pg MCHC (31.0-36.0) g/dl RDW (11.0-16.0) % Plt Count (160-400) X10*3/uL MPV (9.4-12.4) fL Immature Gran % (Auto) (0.0-0.4) % Neut % (Auto) (45-73) % Lymph % (Auto) (20-40) % Cotton % (Auto) (2-11) % Eos % (Auto) (0-4) % Baso % (Auto) (0-2) % Lymph # (Auto) (1.2-4.9) X10*3/uL Cotton # (Auto) (0.1-1.2) X10*3/uL Eos # (Auto) (0.0-0.4) X10*3/uL Baso # (Auto) (0.0-0.2) X10*3/uL Abs Immat Gran (auto) (0.00-0.03) X10*3/uL Absolute Neuts (auto) (2.0-8.3) x10*3/uL Absolute Nucleated RBC (0.0-0.012) X10*3/uL Nucleated RBC % (auto) (0.0-0.2) /100WBC ESR (0-15) MM/HR Sodium (135-145) mmol/L Potassium (3.3-5.1) mmol/L Chloride (96-108) mmol/L Carbon Dioxide (22-29) mmol/L Anion Gap (12-20) BUN (9-16) mg/dL Creatinine (0.5-1.4) mg/dL Estim Creat Clear Calc Estimated GFR Random Glucose (60-115) mg/dL Lactic Acid (0.5-2.0) mmol/L Lactic Acid F/U @ 2Hr (0.5-2.0) mmol/L Calcium (8.4-10.2) mg/dL Phosphorus (2.7-4.5) mg/dL Magnesium (1.6-2.6) mg/dL Total Bilirubin (0.0-1.0) mg/dL AST (5-37) U/L ALT (0-40) U/L Alkaline Phosphatase (39-117) U/L C-Reactive Protein (< or = 0.50) mg/dL Total Protein (6.5-8.0) g/dL Albumin (3.5-5.0) g/dL Urine Color Dark Yellow Urine Appearance Clear Urine pH 5.5 (5.0-9.0) Ur Specific [place] 1.015 (1.005-1.025) Urine Protein Trace (Neg-Trace) mg/dL Urine Glucose (UA) Negative (Negative) mg/dL Urine Ketones 15 (Negative) mg/dL Urine Blood Negative (Negative) Urine Nitrite Negative (Negative) Ur Leukocyte Esterase Negative (Negative) Ethyl Alcohol mg/dL Independent Historian Clinical information obtained from an independent historian. History obtained from or confirmed by: EMS External Record Review External record reviewed: Inpatient record Prescription Management I considered prescription management with: Pain Medication Social Determinants Patient?s care significantly limited by Social Determinants of Health including: Low income, Unemployment and Other Social Determinant of Health Discharge Plan Discharge Clinical Impression: Chronic back pain, Polyneuropathy, Acidosis, lactic, Alcohol intoxication Patient Disposition: Home, Self-Care Instructions: Abuse of Alcohol (ED), Peripheral Neuropathy (ED), Chronic Back Pain (DC) Additional Instructions: Please follow-up with your primary care physician tomorrow. If you have any worsening or new symptoms, please return to the emergency room or call 911 Prescriptions: No Action albuterol sulfate 90 mcg/actuation HFA aerosol inhaler 2 inh inhalation QID PRN (Reason: shortness of breath or wheezing) 30 Days Qty: 8.5 3RF omeprazole 20 mg capsule,delayed release(DR/EC) 20 mg PO DAILY 90 Days Qty: 90 1RF ibuprofen 800 mg tablet 800 mg PO Q8H PRN (Reason: pain) 20 Days Qty: 60 0RF lidocaine 4 % Adhesive Patch,Medicated 1 patch TOPICAL DAILY PRN (Reason: Pain) acetaminophen 325 mg Tablet 650 mg PO Q6H PRN (Reason: Pain, Mild (Pain Scale 1-3)) Qty: 1 0RF magnesium oxide 400 mg (241.3 mg magnesium) Tablet 800 mg PO BIDPC Qty: 1 0RF thiamine mononitrate (vit B1) 100 mg Tablet 100 mg PO DAILY Qty: 1 0RF gabapentin 100 mg Capsule 300 mg PO BEDTIME Qty: 1 0RF gabapentin 100 mg Capsule 200 mg PO BID@0800,1500 Qty: 1 0RF folic acid 1 mg Tablet 1 mg PO DAILY Qty: 30 0RF lidocaine 5 % adhesive patch,medicated 1 patch topical DAILY Qty: 15 0RF Rx Instructions: leave on most painful area for up to 12 hrs Referrals: Gulshan Chanel, [facility] [Primary Care Provider] - 1 day
[2022-11-04] MEDS: Gabapentin 300 MG CAPSULE PO (12:57)
[2022-11-04] MEDS: Ketorolac Tromethamine 15 MG/ML VIAL IVPUSH (12:59)
[2022-11-04] MEDS: 0.9 % Sodium Chloride 1,000 ML 999 ML IV ×3 (13:00→16:52)
[2022-11-04 13:12] LABS: MANUAL DIFF FLAG NO
[2022-11-04 13:14] LABS: Basophils Absolute Auto 0.2 X10*3/uL (0.0-0.2); Basophils Percent Auto 2.6 % (0-2); Eosinophils Absolute Auto 0.1 X10*3/uL (0.0-0.4); Eosinophils Percent Auto 1.8 % (0-4); Hematocrit 42.4 % (42.0-52.0); Imm Gran Abs Auto 0.03 X10*3/uL (0.00-0.03); Imm Gran Pct Auto 0.4 % (0.0-0.4); Lymphocytes Absolute Auto 2.7 X10*3/uL (1.2-4.9); Lymphocytes Percent Auto 34.2 % (20-40); Mean Corpuscular Hemoglobin 35.1 pg (27.0-33.0); Mean Corpuscular Volume 106.3 fL (80.0-98.0); Mean Platelet Volume 9.4 fL (9.4-12.4); Monocytes Absolute Auto 0.5 X10*3/uL (0.1-1.2); Monocytes Percent Auto 5.8 % (2-11); Neutrophils Absolute Auto 4.4 x10*3/uL (2.0-8.3); Neutrophils Percent Auto 55.2 % (45-73); Platelet Count 256 X10*3/uL (160-400); Red Blood Count 3.99 X10*6/uL (4.60-5.80); Red Cell Distribution Width 14.1 % (11.0-16.0)
[2022-11-04 13:29] LABS: Lactic Acid 3.5 mmol/L (0.5-2.0)
[2022-11-04 13:33] LABS: Ethanol 324 mg/dL; Phosphorus 3.5 mg/dL (2.7-4.5)
[2022-11-04 13:36] LABS: Alanine Aminotransferase 31 U/L (0-40); Albumin Level 3.5 g/dL (3.5-5.0); Alkaline Phosphatase 164 U/L (39-117); Anion Gap 22 (12-20); Aspartate Amino Transferase 115 U/L (5-37); Blood Urea Nitrogen 5 mg/dL (9-16); Calcium 8.9 mg/dL (8.4-10.2); Carbon Dioxide 19 mmol/L (22-29); Chloride 107 mmol/L (96-108); Estimated Glomerular Filt Rate > 60; Glucose Random 81 mg/dL (60-115); Potassium 3.9 mmol/L (3.3-5.1); Sodium 144 mmol/L (135-145); Total Protein 7.7 g/dL (6.5-8.0)
[2022-11-04 14:06] LABS: Erythrocyte Sedimentation Rate 34 MM/HR (0-15)
[2022-11-04 15:13] VITALS: BP 90/57; PULSE 90; RESP 20; TEMP 36.6; O2SAT 98
[2022-11-04 15:13] LABS: Reflex Lactate? Lactic Acid Added
[2022-11-04 16:48] LABS: Appearance Urine Clear; Color Urine Dark Yellow; Glucose Urine UA Negative (Negative); Leukocyte Esterase Urine Negative (Negative); Nitrite Urine Negative (Negative); PH 5.5 (5.0-9.0); Specific Gravity - Urine 1.015 (1.005-1.025); Urine Blood Negative (Negative); Urine Ketones 15 mg/dL (Negative); Urine Protein Trace mg/dL (Neg-Trace)
[2022-11-04 16:58] VITALS: BP 100/63; PULSE 86; RESP 16; O2SAT 96
[2022-11-04 17:28] LABS: Reflex Lactate? 2 Y
== END 2022-11-04 17:36 | disposition home or self-care (01) ==
PROVIDERS: Emergency Provider Emergency Medicine; PCP Nurse Practitioner Family
DX: G89.29 Other chronic pain (principal); M54.9 Dorsalgia, unspecified; G62.9 Polyneuropathy, unspecified; E87.20 Acidosis, unspecified; F10.120 Alcohol abuse with intoxication, uncomplicated; Y90.8 Blood alcohol level of 240 mg/100 ml or more; F17.210 Nicotine dependence, cigarettes, uncomplicated; F12.90 Cannabis use, unspecified, uncomplicated; F32.A Depression, unspecified; Z72.89 Other problems related to lifestyle; Z59.02 Unsheltered homelessness; Z79.899 Other long term (current) drug therapy
CPT/HCPCS: 36415; 80053; 80307; 81003; 83605; 83735; 84100; 85025; 85652; 86140; 96361; 96374; 99284; 99285; J1885

== ENCOUNTER 2022-11-04 20:20 | Emergency (ER) | payer OTHER, SELFPAY ==
[2022-11-04 20:33] VITALS: BP 108/58; BP 111/72; PULSE 102; PULSE 89; RESP 18; TEMP 37; O2SAT 95; O2SAT 96; BMI 24.8
--- NOTE | 2022-11-04 20:42 | PC.NURSE ---
Assumed care of pt. pt requesting PT for chronic back pain.
--- NOTE | 2022-11-04 21:30 | ED.ALCOHOL ---
HPI - Alcohol General Chief Complaint: Back Pain/Injury Stated Complaint: ETOH WITNESSED FALL Time Seen by Provider: 11/04/22 21:18 Source: patient Mode of arrival: EMS Limitations: no limitations History of Present Illness HPI narrative: Patient with history of Chronic back pain was seen earlier today for the same as arthritis MRI done on 08/10 showed L4-L5 foraminal stenosis plan to see surgeon next month patient with history of alcohol use was seen here earlier went home came back again after drinking alcohol for the same patient able to ambulate in the ER Related Data Home Medications Medication Instructions Recorded Confirmed lidocaine 4 % topical patch 1 patch topical DAILY PRN Pain 09/22/22 10/17/22 Previous Rx's Medication Instructions Recorded albuterol sulfate 90 mcg/actuation 2 inh inhalation QID PRN shortness 07/08/22 aerosol inhaler of breath or wheezing 30 days #8.5 grams folic acid 1 mg tablet 1 mg PO DAILY #30 tabs 10/01/22 omeprazole 20 mg capsule,delayed 20 mg PO DAILY 90 days #90 caps 10/05/22 release lidocaine 5 % topical patch 1 patch topical DAILY #15 ea 10/07/22 ibuprofen 800 mg tablet 800 mg PO Q8H PRN pain 20 days #60 10/15/22 tabs acetaminophen 325 mg tablet 650 mg PO Q6H PRN Pain, Mild (Pain 10/22/22 Scale 1-3) #1 tab magnesium oxide 400 mg (241.3 mg 800 mg PO BIDPC #1 tab 10/22/22 magnesium) tablet thiamine mononitrate (vit B1) 100 100 mg PO DAILY #1 tab 10/22/22 mg tablet gabapentin 100 mg capsule 200 mg PO BID@0800,1500 #1 cap 10/23/22 gabapentin 100 mg capsule 300 mg PO BEDTIME #1 cap 10/23/22 Allergies Allergy/AdvReac Type Severity Reaction Status Date / Time No Known Allergies Allergy Verified 08/25/22 14:53 Review of Systems Review of Systems: Yes all other systems are reviewed and are negative PMFSH Past Medical History Medical History Acute alcoholic hepatitis Acute bronchitis Alcohol abuse Alcohol withdrawal Asthma Autoimmune disease COVID-19 virus RNA test result positive at limit of detection Depression Edema Electrolyte imbalance Elevated liver enzymes Lyme disease Neuropathy Pancreatitis Right hand pain Sciatica Screening PSA (prostate specific antigen) Swelling of both lower extremities Vomiting Weakness Surgical History No pertinent past surgical history Family History Family History Father Heart attack Mother No problems noted. Sister No problems noted. Daughter No problems noted. Social History Social History Household Members: Spouse Housing: Homeless Housing Other:: Patient is homeless, living in a small tent with his and dog Are you a primary ocular care technician to a significant other at home: No Do you presently have visiting nurse or other home services: No Alcohol intake: current Alcohol intake frequency: 3 or more drinks per day Alcohol type: hard liquor Patient Tobacco Use Status: Current everyday Tobacco user Tobacco use type: Cigarette Cigarette Packs Per Day: 1 Cigarettes Per Day: 20.0 Years Smoked: 41 Smoked in Last 30 Days: Yes e-Cigarette/Vaping Use: Never Used Second Hand Smoke Exposure: Yes Use of substances other than those prescribed or required for medical reasons: No Substance Use Type: Marijuana Advance Directives: Yes Advance Directives on File: Yes Advance Directives Date on File: 09/29/22 service: Yes Current occupational status: unemployed Cognitive needs: No Hearing needs: No Vision needs: No Physical Exam ED Vital Signs: Vital Signs - 24 hr 11/04/22 20:33 11/05/22 00:56 Temperature 98.6 F 98.5 F Pulse Rate 89 103 H Respiratory Rate 18 18 Blood Pressure 111/72 109/64 Pulse Oximetry 96 92 Oxygen Delivery Method Room Air Room Air BMI result Body Mass Index 24.8 Appearance: Alert. Oriented X3. No acute distress. ETOH+ Eyes: PERRLA, No Nystagmus ENT: Pharynx normal. Oral Mucosa moist Neck: Normal inspection. Neck supple. CVS: Normal heart rate and rhythm. Pulses normal. Respiratory: No respiratory distress. Equal air entry bilateral, no wheezing/rales/rhonchi Abdomen: Soft and nontender. Bowel sounds are present, no mass palpable, no CVA tenderness Skin: Skin warm and dry. Normal skin color. Normal skin turgor. Extremities: No lower extremity edema. No calf tenderness back: Diffuse lumbar spinal tenderness Neuro: Oriented X 3. No motor deficit. No sensory deficit.No cerebellar signs , cranial nerves II-XII intact ambulates in steady gait Medical Decision Making Medical Decision Making MDM Narrative: Patient with chronic back pain with alcohol use discharge patient home advised to follow-up with pain clinic/PCP/and clinic Medications Administered Discontinued Medications Generic Name Dose Route Start Last Admin Trade Name Freq PRN Reason Stop Dose Admin Tramadol HCl 50 mg 11/04/22 22:17 11/04/22 22:21 Tramadol Hcl 50 Mg Tablet PO 11/04/22 22:18 50 mg ONCE ONE Administration Discharge Plan Discharge Clinical Impression: Chronic back pain, Alcohol dependence Patient Disposition: Home, Self-Care Instructions: Abuse of Alcohol (ED), Chronic Back Pain (DC) Additional Instructions: Continue to take your pain medication follow-up with your back specialist and detox Prescriptions: No Action albuterol sulfate 90 mcg/actuation HFA aerosol inhaler 2 inh inhalation QID PRN (Reason: shortness of breath or wheezing) 30 Days Qty: 8.5 3RF omeprazole 20 mg capsule,delayed release(DR/EC) 20 mg PO DAILY 90 Days Qty: 90 1RF ibuprofen 800 mg tablet 800 mg PO Q8H PRN (Reason: pain) 20 Days Qty: 60 0RF lidocaine 4 % Adhesive Patch,Medicated 1 patch TOPICAL DAILY PRN (Reason: Pain) acetaminophen 325 mg Tablet 650 mg PO Q6H PRN (Reason: Pain, Mild (Pain Scale 1-3)) Qty: 1 0RF magnesium oxide 400 mg (241.3 mg magnesium) Tablet 800 mg PO BIDPC Qty: 1 0RF thiamine mononitrate (vit B1) 100 mg Tablet 100 mg PO DAILY Qty: 1 0RF gabapentin 100 mg Capsule 300 mg PO BEDTIME Qty: 1 0RF gabapentin 100 mg Capsule 200 mg PO BID@0800,1500 Qty: 1 0RF folic acid 1 mg Tablet 1 mg PO DAILY Qty: 30 0RF lidocaine 5 % adhesive patch,medicated 1 patch topical DAILY Qty: 15 0RF Rx Instructions: leave on most painful area for up to 12 hrs
[2022-11-04] MEDS: traMADoL HCL 50 MG TABLET PO (22:21)
--- NOTE | 2022-11-04 22:39 | PC.NURSE ---
Spoke with Bella, spouse to pt. Bella stated she has NPO availability to come get the patient. Pt still clearly intoxicated. Speaking with MD for status.
[2022-11-05 00:56] VITALS: BP 109/64; PULSE 103; RESP 18; TEMP 36.9; O2SAT 92
--- NOTE | 2022-11-05 02:45 | PC.NURSE ---
Pt ambulated with steady gait to bathroom.
--- NOTE | 2022-11-05 02:59 | PC.NURSE ---
Pt expressed desire to leave, notified MD. pt ambulated with sterady gait to triage, MD aware.
== END 2022-11-05 03:17 | disposition home or self-care (01) ==
PROVIDERS: Emergency Provider Internal Medicine; PCP Nurse Practitioner Family
DX: G89.29 Other chronic pain (principal); M54.50 Low back pain, unspecified; F10.20 Alcohol dependence, uncomplicated; Y90.9 Presence of alcohol in blood, level not specified; Z72.89 Other problems related to lifestyle; Z59.02 Unsheltered homelessness
CPT/HCPCS: 36415; 80053; 80307; 81003; 83605; 83735; 84100; 85025; 85652; 86140; 99283; 99284; 99285; J1885

== ENCOUNTER 2022-12-01 07:29 | Outpatient (AMB) | payer OTHER, SELFPAY ==
--- NOTE | 2022-12-01 07:22 | A.OFFPC_ITS ---
Intake Visit Reasons: Missed OV- back pain, tingling Allergies No Known Allergies Allergy (Verified 08/25/22 14:53) Medication List - Last Reconciled 12/01/22 by LAUREN Corbett-[place] acetaminophen 650 mg (2 x 325 mg) PO Q6H PRN albuterol sulfate 90 mcg/actuation 2 inhalations inhalation QID PRN 30 days folic acid 1 mg PO DAILY gabapentin 200 mg (2 x 100 mg) PO BID@0800,1500 gabapentin 300 mg (3 x 100 mg) PO BEDTIME ibuprofen 800 mg PO Q8H PRN 20 days lidocaine 5% 1 patch topical DAILY lidocaine 4% 1 patch topical DAILY PRN magnesium oxide 800 mg (2 x 400 mg (241.3 mg magnesium)) PO BIDPC omeprazole 20 mg PO DAILY 90 days thiamine mononitrate (vit B1) 100 mg PO DAILY tramadol 50 mg PO DAILY PRN 7 days Tobacco use date assessed: 06/23/22 HPI Missed OV- back pain, tingling HPI Details Pt c/o ongoing neuropathy and weakness. He is following up with the spine center for his lower back pain. Pt is scheduled for surgery on 01/03. Denies any signs of cauda equina, though is in severe pain and has severe lower extrem weakness with muscle atrophy (according to pt's description). Pt c/o vomiting for the past 3 days. He reports that he has not been able to keep anything down. Pt has been drinking water and pedialyte. Will send zofran. Denies fever, chills, abdominal pain, and hematemesis. Pt reports that he has not drank alcohol in 6 days and has not smoked in 3 weeks. will cont to monitor, pt knows to go to the ER with worsening symptoms [facility] Medical History Acute alcoholic hepatitis Acute bronchitis Alcohol abuse Alcohol withdrawal Asthma Autoimmune disease COVID-19 virus RNA test result positive at limit of detection Depression Edema Electrolyte imbalance Elevated liver enzymes Lyme disease Neuropathy Pancreatitis Right hand pain Sciatica Screening PSA (prostate specific antigen) Swelling of both lower extremities Vomiting Weakness Surgical History No pertinent past surgical history Family History Father Heart attack Mother No problems noted. Sister No problems noted. Daughter No problems noted. Social History Household Members: Spouse Housing: Homeless Housing Other:: Patient is homeless, living in a small tent with his and dog Are you a primary primary care sales representative to a significant other at home: No Do you presently have visiting nurse or other home services: No Alcohol intake: current Alcohol intake frequency: 3 or more drinks per day Alcohol type: hard liquor Patient Tobacco Use Status: Current everyday Tobacco user Tobacco use type: Cigarette Cigarette Packs Per Day: 1 Cigarettes Per Day: 20.0 Years Smoked: 41 e-Cigarette/Vaping Use: Never Used Second Hand Smoke Exposure: Yes Substance Use Type: Marijuana Advance Directives Date on File: 09/29/22 service: Yes Current occupational status: unemployed Cognitive needs: No Hearing needs: No Vision needs: No Questionnaire Thrive Questionnaire Date Thrive assessed: 10/17/22 SILVINA-7 AMB Questionnaire SILVINA-7 Date SILVINA - 7 assessed: 06/23/22 Source: Developed by Drs. Jesus Shelton, Angelica Reagan, Vcítor Gallardo and colleagues, with an educational stefano from [employer] Review of Systems Const Reports as per HPI Physical exam (Primary Care) Tobacco/Smoking Status: Tobacco use Status Tobacco use date assessed 06/23/22 12/01/22 07:22 Patient Tobacco Use Status Current everyday Tobacco 12/01/22 07:22 Tobacco use type Cigarette 12/01/22 07:22 e-Cigarette/Vaping Use Never Used 12/01/22 07:22 Thrive Assessment: Date of Thrive Assessment Date Thrive assessed 10/17/22 12/01/22 07:22 Const General: cooperative Orientation/consciousness: patient oriented x3 Neuro General: patient oriented x3 Psych Mental Status: mental status grossly normal Speech and movement: Clear speech present Affect: normal affect Attitude: cooperative Thought process: Normal thought process present Thought content: Normal thought content present Insight: Good insight present (Psych) Judgement: Good judgement present (Psych) Telehealth Telehealth Location of provider rendering services: practice address Location of patient: address on file Patient Identification confirmed using: Name, : Yes Telehealth method: voice only Patient verbally consented to treatment: Yes Patient verbally consented to billing insurance company: Yes Patient informed of any privacy concerns related to visit: Yes Minutes spent on Phone/Video with Pt.: 10 Assessment and Plan Assessment & Plan (1) Gastritis: Code(s): K29.70 - Gastritis, unspecified, without bleeding Qualifiers: Chronicity: acute Gastritis bleeding: with bleeding Gastritis type: alcoholic Qualified Code(s): K29.21 - Alcoholic gastritis with bleeding Plan: Labs ordered (2) Weakness: Code(s): R53.1 - Weakness Plan: Following up with spine center (3) Alcohol use disorder: Code(s): F10.90 - Alcohol use, unspecified, uncomplicated Plan: Labs ordered (4) Lumbosacral radiculopathy due to degenerative joint disease of spine: Code(s): M47.27 - Other spondylosis with radiculopathy, lumbosacral region Plan: Following up with spine center (5) Nerve root compression: Code(s): G54.9 - Nerve root and plexus disorder, unspecified Plan: Following up with spine center Plan The patient agreed to the use of a medical coding technician for this encounter. Scribed for LAUREN Gutierrez- by Kesha Dodge medical coding technician, on 12/01/2022 at 07:20 EST. Orders: Orders Complete Blood Count Auto Diff Today K29.70 - Gastritis, unspecified, without bleeding, R53.1 - Weakness Comprehensive [place]. Panel Fast Today K29.70 - Gastritis, unspecified, without bleeding, R53.1 - Weakness TSH reflex Free T4 Today K29.70 - Gastritis, unspecified, without bleeding, R53.1 - Weakness Alcohol, Ethyl Urine Screen Today F10.90 - Alcohol use, unspecified, uncomplicated UA CC w/rflx Micro + Cult Today K29.70 - Gastritis, unspecified, without bleeding, R53.1 - Weakness Lipid Panel Today K29.70 - Gastritis, unspecified, without bleeding, R53.1 - Weakness Prothrombin Time INR Today G54.9 - Nerve root and plexus disorder, unspecified, M47.27 - Other spondylosis with radiculopathy, lumbosacral region Partial Thromboplastin Time Today G54.9 - Nerve root and plexus disorder, unspecified, M47.27 - Other spondylosis with radiculopathy, lumbosacral region Medications: New ondansetron 8 mg PO Q12H PRN 28 tabs 0RF nausea and vomiting 14 days Refilled omeprazole 20 mg PO DAILY 90 caps 1RF 90 days gabapentin 300 mg (3 x 100 mg) PO BEDTIME 1 cap 0RF tramadol 50 mg PO DAILY PRN 7 tabs 0RF pain 7 days Coding Level of Care Code Tele Est Pt Level 3 (27475) Diagnoses Gastritis K29.21 Chronicity: acute Gastritis bleeding: with bleeding Gastritis type: alcoholic Weakness R53.1 Alcohol use disorder F10.90 Lumbosacral radiculopathy due to degenerative joint disease of spine M47.27 Nerve root compression G54.9
== END 2022-12-01 15:06 | disposition home or self-care (01) ==
PROVIDERS: PCP Nurse Practitioner Family; Visit Provider Nurse Practitioner Family
DX: K29.21 Alcoholic gastritis with bleeding (principal); F10.90 Alcohol use, unspecified, uncomplicated; G54.9 Nerve root and plexus disorder, unspecified
CPT/HCPCS: 99213

== ENCOUNTER 2022-12-01 12:26 | Outpatient (REF) | payer OTHER, SELFPAY ==
[2022-12-01 16:18] LABS: MANUAL DIFF FLAG NO
[2022-12-01 16:49] LABS: Basophils Absolute Auto 0.1 X10*3/uL (0.0-0.2); Basophils Percent Auto 0.7 % (0-2); Eosinophils Percent Auto 0.1 % (0-4); Hematocrit 35.1 % (42.0-52.0); Hemoglobin 12.4 g/dl (14.0-18.0); Imm Gran Abs Auto 0.07 X10*3/uL (0.00-0.03); Imm Gran Pct Auto 0.8 % (0.0-0.4); Lymphocytes Absolute Auto 1.3 X10*3/uL (1.2-4.9); Lymphocytes Percent Auto 15.1 % (20-40); Mean Corpuscular HGB Conc 35.3 g/dl (31.0-36.0); Mean Corpuscular Hemoglobin 34.2 pg (27.0-33.0); Mean Corpuscular Volume 96.7 fL (80.0-98.0); Mean Platelet Volume 12.1 fL (9.4-12.4); Monocytes Absolute Auto 0.7 X10*3/uL (0.1-1.2); Monocytes Percent Auto 8.1 % (2-11); Neutrophils Absolute Auto 6.2 x10*3/uL (2.0-8.3); Neutrophils Percent Auto 75.2 % (45-73); Platelet Count 126 X10*3/uL (160-400); Red Blood Count 3.63 X10*6/uL (4.60-5.80); Red Cell Distribution Width 12.7 % (11.0-16.0); White Blood Count 8.3 X10*3/uL (4.8-10.8)
[2022-12-01 16:58] LABS: Appearance Urine Turbid; Color Urine Dark Yellow; Glucose Urine UA Negative (Negative); Leukocyte Esterase Urine Large (3+) (Negative); Nitrite Urine Positive (Negative); PH 5.5 (5.0-9.0); Specific Gravity - Urine >= 1.030 (1.005-1.025); UMIC TRIGGER UACC YES; Urine Blood Large (3+) (Negative); Urine Ketones 40 mg/dL (Negative); Urine Protein 100 (2+) mg/dL (Neg-Trace)
[2022-12-01 17:21] LABS: Alanine Aminotransferase 13 U/L (0-40); Alkaline Phosphatase 138 U/L (39-117); Anion Gap 22 (12-20); Aspartate Amino Transferase 62 U/L (5-37); Bilirubin Total 2.7 mg/dL (0.0-1.0); Blood Urea Nitrogen 6 mg/dL (9-16); Calcium 9.7 mg/dL (8.4-10.2); Carbon Dioxide 27 mmol/L (22-29); Chloride 86 mmol/L (96-108); Cholesterol 159 mg/dL (<200); Estimated Glomerular Filt Rate > 60; Glucose Fasting 95 mg/dL (60-99); HDL Cholesterol 20 mg/dL (>40); LDL Cholesterol Calculated 103 mg/dL (<100); Sodium 133 mmol/L (135-145); Total Protein 8.1 g/dL (6.5-8.0); Triglycerides 181 mg/dL (<150)
[2022-12-01 17:25] LABS: Bacteria Urine 4+ (None Seen); RBC Urine >20 /HPF (0-2); UACC Culture Trigger YES; WBC Urine >50 /HPF (0-5)
[2022-12-01 17:52] LABS: Potassium 2.3 mmol/L (3.3-5.1)
[2022-12-16 15:20] LABS: Alcohol, Ethyl Urine Screen NEGATIVE
== END 2022-12-01 12:27 | disposition home or self-care (01) ==
LOC: HO.HMGCLDS 12:26
PROVIDERS: PCP Nurse Practitioner Family; Visit Provider Nurse Practitioner Family
DX: K29.70 Gastritis, unspecified, without bleeding (principal); R53.1 Weakness; F10.90 Alcohol use, unspecified, uncomplicated
CPT/HCPCS: 80053; 80061; 80307; 81001; 81003; 84443; 85025; 85610; 85730; 87086; 87088; 87186

== ENCOUNTER 2022-12-10 09:35 | Outpatient (REF) | payer OTHER, SELFPAY ==
--- NOTE | ~2022-12-10 | CT_ITS ---
EXAMINATION: CT ABDOMEN AND PELVIS WITHOUT AND WITH CONTRAST CLINICAL INFORMATION: Hematuria. COMPARISON: Abdomen ultrasound from 09/29/2022. Abdomen CT from 07/05/2021. TECHNIQUE: Multidetector volumetric imaging was performed of the abdomen and pelvis before and after the administration of 85 mL of Omnipaque 350 intravenous contrast. Postcontrast images were acquired in the pyelographic phase. Sagittal and coronal reformatted images were obtained on the technologist's workstation. This CT examination was performed using dose optimization techniques as appropriate, variously including the following: *Automated exposure control *Adjustment of mA and/or kV according to patient size (this includes techniques or standardized protocols for targeted exams where dose is matched to indication/reason for exam; i.e. extremities or head) *Use of iterative reconstruction technique DLP: 601 mGy-cm FINDINGS: LUNG BASES: Normal. No pulmonary consolidation or pleural effusion. LIVER: Mild hepatomegaly. Diffuse hepatic steatosis was present on prior CT exam from 07/05/2021. The steatosis has become more heterogeneous. The caudate lobe and left hepatic lobe are hypertrophied. No evidence of liver mass or intrahepatic ductal dilatation. GALLBLADDER AND BILIARY TREE: Gallbladder has multiple calcified stones. Also, there are small stones adherent to the gallbladder wall or possible small calcified polyps along the wall. No gallbladder mass. Common bile duct is normal in size; it measures up to 0.5 cm maximum diameter. Common bile duct is difficult to visualized throughout its course. A 0.3 cm calcification along the posterior pancreatic head is not convincingly located within the nondilated common duct. PANCREAS: There is an old punctate focus of calcification within the pancreatic head. No pancreatic edema or pancreatic ductal dilatation. SPLEEN: Normal. ADRENAL GLANDS: Normal. KIDNEYS AND URETERS: Kidneys are normal in size. No evidence of renal stones, hydroureter or hydronephrosis. No renal mass. There is normal excretion of contrast into the nondilated collecting systems. No evidence of urothelial thickening. There are segments of each ureter that are not opacified on the pyelographic phase images, likely from peristalsis at time of imaging. BLADDER: Urinary bladder has a normal appearance. No evidence of bladder mass, stone or diverticulum. BOWEL AND PERITONEUM: Stomach is unremarkable. No dilated bowel loops. The appendix is normal. Small volume of ascitic fluid is present in the abdomen and pelvis. ABDOMINAL WALL: Unremarkable. VASCULATURE: Mild atherosclerosis of the abdominal aorta without aneurysm. Inferior vena cava is normal. The splenic and portal veins are normal. There is a small recanalized paraumbilical vein. LYMPH NODES: No pathologic sized lymph nodes in the abdomen or pelvis. No inguinal lymphadenopathy. PELVIC VISCERA: Prostate gland is unremarkable. MUSCULOSKELETAL: Moderate discovertebral degenerative change with vacuum disc phenomenon at L5-S1. No acute or suspicious osseous lesion. CT/CT abdomen pelvis wo/w IV con IMPRESSION: * The upper and lower urinary tracts are unremarkable. No evidence of renal mass, urolithiasis or hydronephrosis. * Chronic hepatomegaly and hepatic steatosis (or alcoholic associated steatohepatitis). The steatosis has become more heterogeneous. Mild hepatic cirrhosis is suspected. Small volume of ascitic fluid is present in the abdomen and pelvis. * Cholelithiasis without overt evidence of acute cholecystitis. Difficult to exclude 0.3 cm calcified stone within distal CBD. Query if there is any recent onset of right upper quadrant pain, biliary colic, or hyperbilirubinemia.
[2022-12-10] MEDS: iohexoL 350 MG/ML 100 ML INFUS..BTL IV (11:18)
== END 2022-12-10 09:36 | disposition home or self-care (01) ==
LOC: HO.CT 09:35
PROVIDERS: PCP Nurse Practitioner Family; Visit Provider Nurse Practitioner Family
DX: R31.9 Hematuria, unspecified (principal)
CPT/HCPCS: 74178; Q9967

== ENCOUNTER 2022-12-14 07:51 | Outpatient (AMB) | payer OTHER, SELFPAY ==
[2022-12-14 09:03] VITALS: BP 94/62; PULSE 69; O2SAT 98; BMI 23.6
--- NOTE | 2022-12-14 09:03 | MHC.PC.OV ---
Vital Signs 12/14/22 09:03 Height 5 ft 10 in Weight 164 lb 8 oz BMI 23.6 BP 94/62 Blood Pressure Location Rt brachial Position Sitting Pulse 69 Pulse Source Pulse Oximeter Pulse Oximetry (%) 98 Oxygen Delivery Method Room Air Intake Visit Reasons: Pre-op visit (general surgery) Allergies No Known Allergies Allergy (Verified 12/14/22 09:07) Tobacco use date assessed: 06/23/22 Dental Screening Dental Screen Date: 12/14/22 Did you have a dental visit in the last 12 months?: No Did you have a dental problem in the last 6 months where you did not have access to dental care?: No Was dental information given to patient?: No HPI Pre-op visit (general surgery) HPI Details Pt is here for a pre-op evaluation. He is scheduled to undergo a minimally invasive L5-S1 fusion using a Transkambin approach (oblique lateral lumbar interbody fusion). Will do an EKG in office. Will also order labs. Pt was noted to have a possible 0.3 cm calcified stone within distal CBD. He is asymptomatic. Will refer to general surgery. This should not interfere with his surgery. He does have a Hx of ETOH abuse, reports last drink was over a week ago. Labs ordered [facility] Medical History Elevated liver enzymes Neuropathy Electrolyte imbalance Edema Weakness Swelling of both lower extremities Depression Screening PSA (prostate specific antigen) COVID-19 virus RNA test result positive at limit of detection Alcohol withdrawal Vomiting Acute alcoholic hepatitis Acute bronchitis Asthma Right hand pain Sciatica Alcohol abuse Lyme disease Autoimmune disease Pancreatitis Surgical History No pertinent past surgical history Family History Father Heart attack Mother No problems noted. Sister No problems noted. Daughter No problems noted. Social History Household Members: Spouse Housing: Homeless Housing Other:: Patient is homeless, living in a small tent with his and dog Are you a primary career development director to a significant other at home: No Do you presently have visiting nurse or other home services: No Alcohol intake: current Alcohol intake frequency: 3 or more drinks per day Alcohol type: hard liquor Patient Tobacco Use Status: Former Tobacco user Tobacco use type: Cigarette Years Smoked: 41 e-Cigarette/Vaping Use: Never Used Second Hand Smoke Exposure: Yes Substance Use Type: Marijuana Advance Directives Date on File: 09/29/22 service: Yes Current occupational status: unemployed Cognitive needs: No Hearing needs: No Vision needs: No Questionnaire Thrive Questionnaire Date Thrive assessed: 10/17/22 SILVINA-7 AMB Questionnaire SILVINA-7 Date SILVINA - 7 assessed: 06/23/22 Source: Developed by Drs. Jesus Shelton, Angelica Reagan, Víctor Gallardo and colleagues, with an educational stefano from [employer]. Review of Systems Const Denies chills and Denies fever(s) Eyes Denies blurry vision ENT Denies vertigo, Denies dizziness and Denies sore throat Card Denies chest pain at rest, Denies chest pain with activity, Denies diaphoresis, Denies dyspnea and Denies dyspnea on exertion Resp Denies cough, Denies dyspnea, Denies dyspnea on exertion and Denies wheezing GI Denies abdominal pain, Denies melena, Denies hematochezia, Denies constipation, Denies diarrhea and Denies loose stools Denies hematuria Musc Denies numbness and Denies tingling Skin/Breast Denies lesions Neuro Denies vertigo, Denies dizziness, Denies numbness and Denies tingling Psych Denies anxiety, Denies depression, Denies homicidal ideation, Denies suicidal ideation and Denies other (substance abuse) Aller/Immun Denies wheezing Physical exam (Primary Care) Vital Signs: Last Vital Signs Pulse 69 12/14/22 09:03 BP 94/62 12/14/22 09:03 Pulse Ox 98 12/14/22 09:03 Oxygen Delivery Method Room Air 12/14/22 09:03 BMI result Body Mass Index 23.6 Tobacco/Smoking Status: Tobacco use Status Tobacco use date assessed 06/23/22 12/14/22 09:12 Patient Tobacco Use Status Former Tobacco user 12/14/22 09:12 Tobacco use type Cigarette 12/14/22 09:12 e-Cigarette/Vaping Use Never Used 12/14/22 09:12 Thrive Assessment: Date of Thrive Assessment Date Thrive assessed 10/17/22 12/14/22 09:12 Const General: cooperative Nutritional Appearance: well nourished Orientation/consciousness: patient oriented x3 Limitations: ambulation with cane Neck Neck: Yes no lymphadenopathy Resp Other: lungs fairly clear bilat with faint wheezing Effort & Inspection: normal respiratory effort Cardio Rate: regular rate Rhythm: regular rhythm Heart sounds: S1 normal heart sound present, S2 normal heart sound present and no murmurs Neuro General: patient oriented x3 and moves all extremities Extrem Other: weakness noted to BLE Psych Appearance: grossly normal Mental Status: mental status grossly normal Speech and movement: Normal speech and movement present Affect: normal affect Attitude: cooperative Thought process: Normal thought process present Thought content: Normal thought content present Insight: Good insight present (Psych) Judgement: Good judgement present (Psych) Assessment and Plan Assessment & Plan (1) Pre-op evaluation: Code(s): Z01.818 - Encounter for other preprocedural examination Plan: Labs ordered Plan The patient agreed to the use of a medical aides teacher for this encounter. Scribed for TRACEE Gutierrez by Kesha Dodge medical aides teacher, on 12/14/2022 at 09:30 EST. Orders: Orders Complete Blood Count Auto Diff Today Z01.818 - Encounter for other preprocedural examination Comprehensive Met. Panel Today Z01.818 - Encounter for other preprocedural examination Prothrombin Time INR Today Z01.818 - Encounter for other preprocedural examination Partial Thromboplastin Time Today Z01.818 - Encounter for other preprocedural examination Magnesium Today Z01.818 - Encounter for other preprocedural examination Coding Level of Care Code Est Pt Prev Care 40-64y(23668) Diagnoses Pre-op evaluation Z01.818
== END 2022-12-14 10:11 | disposition home or self-care (01) ==
PROVIDERS: PCP Nurse Practitioner Family; Visit Provider Nurse Practitioner Family
DX: Z01.818 Encounter for other preprocedural examination (principal)
CPT/HCPCS: 93000; 99214

== ENCOUNTER 2022-12-14 09:54 | Outpatient (REF) | payer OTHER, SELFPAY ==
[2022-12-14 13:07] LABS: MANUAL DIFF FLAG NO
[2022-12-14 13:12] LABS: Basophils Absolute Auto 0.1 X10*3/uL (0.0-0.2); Basophils Percent Auto 1.4 % (0-2); Eosinophils Absolute Auto 0.3 X10*3/uL (0.0-0.4); Eosinophils Percent Auto 3.4 % (0-4); Hemoglobin 11.2 g/dl (14.0-18.0); Imm Gran Abs Auto 0.03 X10*3/uL (0.00-0.03); Imm Gran Pct Auto 0.3 % (0.0-0.4); Lymphocytes Absolute Auto 1.6 X10*3/uL (1.2-4.9); Lymphocytes Percent Auto 18.1 % (20-40); Mean Corpuscular HGB Conc 32.9 g/dl (31.0-36.0); Mean Corpuscular Volume 103.3 fL (80.0-98.0); Mean Platelet Volume 10.7 fL (9.4-12.4); Monocytes Absolute Auto 0.5 X10*3/uL (0.1-1.2); Monocytes Percent Auto 5.5 % (2-11); Neutrophils Absolute Auto 6.4 x10*3/uL (2.0-8.3); Neutrophils Percent Auto 71.3 % (45-73); Platelet Count 173 X10*3/uL (160-400); Red Blood Count 3.29 X10*6/uL (4.60-5.80); Red Cell Distribution Width 15.2 % (11.0-16.0); White Blood Count 9.1 X10*3/uL (4.8-10.8)
[2022-12-14 13:30] LABS: INTERNATIONAL NORM RATIO 1.1 (0.9-1.1); Prothrombin Time 13.3 SEC (11.1-13.3)
[2022-12-14 13:33] LABS: Partial Thromboplastin Time 34.3 SEC (26.0-36.4)
[2022-12-14 13:42] LABS: Alanine Aminotransferase 10 U/L (0-40); Albumin Level 3.5 g/dL (3.5-5.0); Alkaline Phosphatase 144 U/L (39-117); Anion Gap 17 (12-20); Aspartate Amino Transferase 39 U/L (5-37); Bilirubin Total 2.2 mg/dL (0.0-1.0); Blood Urea Nitrogen 6 mg/dL (9-16); Calcium 8.5 mg/dL (8.4-10.2); Carbon Dioxide 24 mmol/L (22-29); Chloride 99 mmol/L (96-108); Estimated Glomerular Filt Rate > 60; Glucose Random 104 mg/dL (60-115); Sodium 137 mmol/L (135-145); Total Protein 7.4 g/dL (6.5-8.0)
[2022-12-14 13:44] LABS: Magnesium 1.2 mg/dL (1.6-2.6)
[2022-12-14 13:59] LABS: Appearance Urine Turbid; Color Urine DK YELLOW; Glucose Urine UA Negative (Negative); Leukocyte Esterase Urine Negative (Negative); Nitrite Urine Positive (Negative); Specific Gravity - Urine 1.025 (1.005-1.025); UMIC TRIGGER UACC YES; Urine Blood Negative (Negative); Urine Ketones Trace mg/dL (Negative); Urine Protein Trace mg/dL (Neg-Trace)
[2022-12-14 14:19] LABS: RBC Urine 0-2 /HPF (0-2); Squamous Epithelial Cell Urine 0-2 /HPF (0-2); UACC Culture Trigger YES; WBC Urine 0-5 /HPF (0-5)
[2022-12-14 14:20] LABS: Bacteria Urine 1+ (None Seen); Hyaline Casts Urine 0-2 /LPF (0-2)
== END 2022-12-14 09:55 | disposition home or self-care (01) ==
LOC: HO.HMGCLDS 09:54
PROVIDERS: PCP Nurse Practitioner Family; Visit Provider Nurse Practitioner Family
DX: Z01.818 Encounter for other preprocedural examination (principal); G54.9 Nerve root and plexus disorder, unspecified
CPT/HCPCS: 36415; 80053; 81001; 83735; 85025; 85610; 85730; 87086

== ENCOUNTER 2022-12-14 16:34 | Emergency (ER) | payer OTHER, SELFPAY ==
[2022-12-14 16:39] VITALS: BP 103/65; PULSE 84; RESP 18; TEMP 36.7; O2SAT 98; BMI 23.7
--- NOTE | 2022-12-14 16:40 | ECG_ITS ---
Test Reason : HYPO MAG Blood Pressure : / mmHG Vent. Rate : 080 BPM Atrial Rate : 080 BPM P-R Int : 144 ms QRS Dur : 084 ms QT Int : 442 ms P-R-T Axes : 084 006 044 degrees QTc Int : 509 ms Normal sinus rhythm Septal infarct , age undetermined Prolonged QT Abnormal ECG When compared with ECG of 07-OCT-2022 18:18, Septal infarct is now Present T wave inversion less evident in Anterior leads Referred By: Jeffry Elise Electronically Signed By:JASE MARQUES
--- NOTE | 2022-12-14 16:40 | ED.GENADULT ---
HPI - General Adult General Chief complaint: Recheck/Abnormal Lab/Rx Stated complaint: low magnesium told to go to ER by doctor Time Seen by Provider: 12/14/22 21:06 Source: patient Mode of arrival: ambulatory Limitations: no limitations History of Present Illness HPI narrative: 52-year-old male who was sent to emergency department for evaluation of low magnesium. The patient states that he has a lower disc problem and is scheduled for a surgery on 01/03/2023. Patient had a preop evaluation which included blood work and he was told that he had a low magnesium and needed to go to the emergency department for evaluation. Patient states he has had low magnesium and potassium in the past. Patient does have a history of alcohol use disorder but states that he has not been drinking recently. He states he has been eating well and has had a good diet. He states that he is having back pain but otherwise has no other complaints. He denied fever, chills, nausea, vomiting or diarrhea. He states that he was prescribed folate, thiamine and magnesium but does not have these medications. Related Data Home Medications Medication Instructions Recorded Confirmed lidocaine 4 % topical patch 1 patch topical DAILY PRN Pain 09/22/22 12/01/22 Previous Rx's Medication Instructions Recorded albuterol sulfate 90 mcg/actuation 2 inh inhalation QID PRN shortness 07/08/22 aerosol inhaler of breath or wheezing 30 days #8.5 grams lidocaine 5 % topical patch 1 patch topical DAILY #15 ea 10/07/22 ibuprofen 800 mg tablet 800 mg PO Q8H PRN pain 20 days #60 10/15/22 tabs acetaminophen 325 mg tablet 650 mg (2 x 325 mg) PO Q6H PRN 10/22/22 Pain, Mild (Pain Scale 1-3) #1 tab thiamine mononitrate (vit B1) 100 100 mg PO DAILY #1 tab 10/22/22 mg tablet omeprazole 20 mg capsule,delayed 20 mg PO DAILY 90 days #90 caps 12/01/22 release ondansetron 8 mg disintegrating 8 mg PO Q12H PRN nausea and 12/01/22 tablet vomiting 14 days #28 tabs tramadol 50 mg tablet 50 mg PO DAILY PRN pain 7 days #7 12/01/22 tabs gabapentin 100 mg capsule 300 mg (3 x 100 mg) PO BEDTIME #1 12/02/22 cap folic acid 1 mg tablet 1 mg PO DAILY #30 tabs 12/07/22 magnesium oxide 400 mg (241.3 mg 800 mg (2 x 400 mg (241.3 mg 12/07/22 magnesium) tablet magnesium)) PO BIDPC #1 tab potassium chloride 20 mEq oral 20 meq PO BID 4 days #8 ea 12/07/22 packet gabapentin 300 mg capsule 300 mg PO BEDTIME 30 days #30 caps 12/08/22 magnesium 250 mg tablet 250 mg PO DAILY 90 days #90 tabs 12/14/22 potassium chloride 20 mEq 20 meq PO DAILY 90 days #90 tabs 12/14/22 tablet,extended release(part/cryst) vitamins no.162-iron 1 tab PO DAILY 90 days #90 tabs 12/14/22 gluconate 12 mg-folic acid 1 mg tablet Allergies Allergy/AdvReac Type Severity Reaction Status Date / Time No Known Allergies Allergy Verified 12/14/22 09:07 Review of Systems Review of Systems: Yes all other systems are reviewed and are negative [facility] Past Medical History [facility] Narrative: Social history: Patient does smoke cigarettes occasionally, he states that he has not been drinking alcohol the recently. He denies drug use. Medical History Elevated liver enzymes Neuropathy Electrolyte imbalance Edema Weakness Swelling of both lower extremities Depression Screening PSA (prostate specific antigen) COVID-19 virus RNA test result positive at limit of detection Alcohol withdrawal Vomiting Acute alcoholic hepatitis Acute bronchitis Asthma Right hand pain Sciatica Alcohol abuse Lyme disease Autoimmune disease Pancreatitis Surgical History No pertinent past surgical history Family History Family History Father Heart attack Mother No problems noted. Sister No problems noted. Daughter No problems noted. Social History Social History Household Members: Spouse Housing: Homeless Housing Other:: Patient is homeless, living in a small tent with his and dog Are you a primary child care associate teacher to a significant other at home: No Do you presently have visiting nurse or other home services: No Alcohol intake: former Patient Tobacco Use Status: Former Tobacco user Tobacco use type: Cigarette Years Smoked: 41 Smoked in Last 30 Days: No e-Cigarette/Vaping Use: Never Used Second Hand Smoke Exposure: Yes Use of substances other than those prescribed or required for medical reasons: No Substance Use Type: Marijuana Advance Directives: Yes Advance Directives on File: Yes Advance Directives Date on File: 09/29/22 service: Yes Current occupational status: unemployed Cognitive needs: No Hearing needs: No Vision needs: No Physical Exam ED Vital Signs: Vital Signs - 24 hr 12/14/22 16:39 12/14/22 20:58 12/14/22 23:20 Temperature 98.1 F 98.1 F 98.1 F Pulse Rate 84 71 76 Respiratory Rate 18 18 17 Blood Pressure 103/65 108/68 92/56 L Pulse Oximetry 98 96 97 Oxygen Delivery Method Room Air Room Air Room Air BMI result Body Mass Index 23.7 Vital signs were normal. Exam: General: Awake, alert in no distress Head: Normocephalic, atraumatic EENT: PERRL, Lids normal, sclera normal, conjunctiva normal, nose normal , ears normal, throat without erythema or exudates, poor dentition Neck: Supple, no adenopathy, trachea midline and nontender Lung: breath sounds symmetric, no wheezing, rales or rhonchi Chest: symmetric movement, nontender Heart: regular rate and rhythm, normal S1, S2 no murmurs or rubs Abdomen: soft, non-tender, nondistended, normal bowel sounds Back: no vertebral tenderness, no CVAT Extremities: no deformities, moves all extremities symmetrically Neuro: Awake, alert, oriented, normal speech, moves all extremities symmetrically Psych: Pleasant, cooperative Course Course Course Narrative: This is an RME: Additional HPI, ROS, PE not included below will be deferred to primary provider. 52 yo male PMH alcohol use disorder presenting by referral from PCP for electrolyte abnormalities. States last drink was a few weeks ago. Labs this AM demosntrated hypomagnesemia and hypokalemia. Denies fevers, chills, chest pain, shortness of breath, abdominal pain. States he is down 20lbs from his last weight. Plan - labs, EKG, UA Medications Administered Discontinued Medications Generic Name Dose Route Start Last Admin Trade Name Freq PRN Reason Stop Dose Admin Gabapentin 300 mg 12/14/22 21:40 09/26/23 21:51 Gabapentin 300 Mg Capsule PO 12/14/22 21:41 300 mg ONCE ONE Administration Magnesium Sulfate 2 gm in 50 mls @ 25 mls/hr 12/14/22 21:25 12/14/22 21:53 Magnesium Sulfate/H2o IV 12/14/22 23:24 25 mls/hr ONCE ONE Administration Potassium Chloride 40 meq 12/14/22 21:25 12/14/22 21:51 Potassium Chloride Packet 20 Meq Packet PO 12/14/22 21:26 40 meq ONCE ONE Administration Tramadol HCl 50 mg 12/14/22 21:40 12/14/22 21:51 Tramadol Hcl 50 Mg Tablet PO 12/14/22 21:41 50 mg ONCE ONE Administration Medical Decision Making Medical Decision Making [facility] Narrative: 52-year-old male who has a history of alcohol use disorder, alcoholic gastritis, alcoholic hepatitis, anemia who presents emergency department for evaluation of a low magnesium which was detected on a preop evaluation. Patient states that he has not been drinking alcohol. The patient is supposed to be taken thiamine, folate, magnesium and potassium supplements but he states he does not have these medications. The patient's vital signs were normal. Patient's physical examination was unremarkable. Following evaluation was ordered: CBC, CMP, magnesium, urinalysis. 2145: Patient's laboratory evaluation is consistent with a macrocytic anemia with hypokalemia and hypomagnesemia-this is most likely related to alcohol use disorder mL nutrition I did discuss this with the patient Patient was ordered to get magnesium 2 g IV and potassium 40 mEq orally. Patient states that he has had back pain is requesting his outpatient medications therefore he was given tramadol 50 mg orally and gabapentin 300 mg orally. 0005: Patient completed his magnesium infusion without any difficulty Patient was prescribed multivitamin with thiamine, folate and iron, magnesium 250 mg daily and K Dur 20 mg of daily He was given printed and verbal instructions and discharged home. Differential Diagnosis Differential diagnosis includes was not limited to alcohol use disorder, malnutrition, hypomagnesemia, hypokalemia, anemia Admission/Observation Consideration of admission/observation: Escalation of care including admission/observation considered Lab Data [facility] Lab Attestation statement: I reviewed the patient's lab results. My interpretation patient's laboratory evaluation as follows: Microcytic anemia with an H&H of 10.4 and 30.4 with an MCV of 101. Low potassium 2.8. Low magnesium 1.2. Elevated glucose 125. Elevated alk phos 135. Elevated bilirubin 2.1. 12/14/22 17:00 12/14/22 17:00 Labs: Lab Results 12/14/22 12/14/22 12/14/22 Range/Units 17:00 21:33 23:24 WBC 8.8 (4.8-10.8) X10*3/uL RBC 3.01 L (4.60-5.80) X10*6/uL Hgb 10.4 L (14.0-18.0) g/dl Hct 30.4 L (42.0-52.0) % MCV 101.0 H (80.0-98.0) fL MCH 34.6 H (27.0-33.0) pg MCHC 34.2 (31.0-36.0) g/dl RDW 15.3 (11.0-16.0) % Plt Count 151 L (160-400) X10*3/uL MPV 10.0 (9.4-12.4) fL Immature Gran % (Auto) 0.3 (0.0-0.4) % Neut % (Auto) 67.8 (45-73) % Lymph % (Auto) 21.5 (20-40) % [place] % (Auto) 6.1 (2-11) % Eos % (Auto) 3.4 (0-4) % Baso % (Auto) 0.9 (0-2) % Lymph # (Auto) 1.9 (1.2-4.9) X10*3/uL [place] # (Auto) 0.5 (0.1-1.2) X10*3/uL Eos # (Auto) 0.3 (0.0-0.4) X10*3/uL Baso # (Auto) 0.1 (0.0-0.2) X10*3/uL Abs Immat Gran (auto) 0.03 (0.00-0.03) X10*3/uL Absolute Neuts (auto) 6.0 (2.0-8.3) x10*3/uL Absolute Nucleated RBC 0.000 (0.0-0.012) X10*3/uL Nucleated RBC % (auto) 0.0 (0.0-0.2) /100WBC Sodium 139 (135-145) mmol/L Potassium 2.8 L (3.3-5.1) mmol/L Chloride 102 (96-108) mmol/L Carbon Dioxide 25 (22-29) mmol/L Anion Gap 15 (12-20) BUN 7 L (9-16) mg/dL Creatinine 0.83 (0.5-1.4) mg/dL Estim Creat Clear Calc 106.2 Estimated GFR > 60 Random Glucose 125 H (60-115) mg/dL Calcium 8.2 L (8.4-10.2) mg/dL Magnesium 1.2 L* 1.2 L* (1.6-2.6) mg/dL Total Bilirubin 2.1 H (0.0-1.0) mg/dL AST 34 (5-37) U/L ALT 9 (0-40) U/L Alkaline Phosphatase 135 H (39-117) U/L Total Protein 6.7 (6.5-8.0) g/dL Albumin 3.2 L (3.5-5.0) g/dL Urine Color Dark Yellow Urine Appearance Clear Urine pH 6.0 (5.0-9.0) Ur Specific [place] 1.025 (1.005-1.025) Urine Protein 30 (1+) H (Neg-Trace) mg/dL Urine Glucose (UA) Negative (Negative) mg/dL Urine Ketones Trace (Negative) mg/dL Urine Blood Negative (Negative) Urine Nitrite Negative (Negative) Ur Leukocyte Esterase Trace H (Negative) Urine RBC 0-2 (0-2) /HPF Urine WBC 0-5 (0-5) /HPF Ur Squamous Epith Cells 11-20 (0-2) /HPF Urine Bacteria None Seen (None Seen) Hyaline Casts 6-10 (0-2) /LPF Critical Care Time Critical Care Time Critical Care Time: Yes Total Critical Care Time: 35 Attestation: Critical Care: The patient was critically ill with a high probability of imminent or life threatening deterioration. I spent greater than 30 minutes of discontinuous time evaluating the patient,delivering critical care at the bedside. Critical care time does not include time spent performing separately billable procedures or teaching. Total time spent performing critical care was 35 minutes. Discharge Plan Discharge Clinical Impression: Anemia, macrocytic, Hypomagnesemia, Acute hypokalemia Patient Disposition: Home, Self-Care Instructions: Potassium Content of Foods List (ED), Hypomagnesemia (ED) Additional Instructions: You have a macrocytic anemia (your red blood cell counts are low and your red blood cells or large)-this is usually caused by low folate and low thiamine. I am prescribing UA vitamin that is high is thiamine , folate and iron. If this is not covered by your insurance ask the pharmacist to substitute a multivitamin that is high in thiamine, folate and iron that is covered by your insurance. Take magnesium 250 mg once a day Take K Dur (potassium) 20 mEq once a day. The need to take these supplement for at least 3 months. Stop drinking alcohol. Continue taking your other medications as prescribed by your provider. Follow-up with your doctor in 2 days. Please return to the emergency department if your symptoms get worse or if you develop any symptoms that are concerning to you. It looks like you are prescribed thiamine and folate, if you have these medication then take them instead of the multivitamins. However if you do not have these medications take the multivitamin as prescribed. Prescriptions: New PNV no.162-iron glu-folic acid 12-1 mg tablet 1 tab PO DAILY 90 Days Qty: 90 0RF magnesium 250 mg tablet 250 mg PO DAILY 90 Days Qty: 90 0RF potassium chloride 20 mEq tablet,ER particles/crystals 20 meq PO DAILY 90 Days Qty: 90 0RF No Action albuterol sulfate 90 mcg/actuation HFA aerosol inhaler 2 inh inhalation QID PRN (Reason: shortness of breath or wheezing) 30 Days Qty: 8.5 3RF ibuprofen 800 mg tablet 800 mg PO Q8H PRN (Reason: pain) 20 Days Qty: 60 0RF gabapentin 100 mg capsule 300 mg PO BEDTIME Qty: 1 0RF folic acid 1 mg tablet 1 mg PO DAILY Qty: 30 0RF magnesium oxide 400 mg (241.3 mg magnesium) tablet 800 mg PO BIDPC Qty: 1 0RF potassium chloride 20 mEq packet 20 meq PO BID 4 Days Qty: 8 0RF Rx Instructions: repeat lab on day 3 please gabapentin 300 mg capsule 300 mg PO BEDTIME 30 Days Qty: 30 3RF lidocaine 4 % Adhesive Patch,Medicated 1 patch TOPICAL DAILY PRN (Reason: Pain) acetaminophen 325 mg Tablet 650 mg PO Q6H PRN (Reason: Pain, Mild (Pain Scale 1-3)) Qty: 1 0RF thiamine mononitrate (vit B1) 100 mg Tablet 100 mg PO DAILY Qty: 1 0RF lidocaine 5 % adhesive patch,medicated 1 patch topical DAILY Qty: 15 0RF Rx Instructions: leave on most painful area for up to 12 hrs omeprazole 20 mg capsule,delayed release(DR/EC) 20 mg PO DAILY 90 Days Qty: 90 1RF tramadol 50 mg tablet 50 mg PO DAILY PRN (Reason: pain) 7 Days Qty: 7 0RF ondansetron 8 mg tablet,disintegrating 8 mg PO Q12H PRN (Reason: nausea and vomiting) 14 Days Qty: 28 0RF
[2022-12-14 17:14] LABS: MANUAL DIFF FLAG NO
[2022-12-14 17:31] LABS: Alanine Aminotransferase 9 U/L (0-40); Albumin Level 3.2 g/dL (3.5-5.0); Alkaline Phosphatase 135 U/L (39-117); Anion Gap 15 (12-20); Aspartate Amino Transferase 34 U/L (5-37); Basophils Absolute Auto 0.1 X10*3/uL (0.0-0.2); Basophils Percent Auto 0.9 % (0-2); Bilirubin Total 2.1 mg/dL (0.0-1.0); Blood Urea Nitrogen 7 mg/dL (9-16); Calcium 8.2 mg/dL (8.4-10.2); Carbon Dioxide 25 mmol/L (22-29); Chloride 102 mmol/L (96-108); Creatinine Clr Calc Pharmacy 106.2; Eosinophils Absolute Auto 0.3 X10*3/uL (0.0-0.4); Eosinophils Percent Auto 3.4 % (0-4); Estimated Glomerular Filt Rate > 60; Glucose Random 125 mg/dL (60-115); Hematocrit 30.4 % (42.0-52.0); Hemoglobin 10.4 g/dl (14.0-18.0); Imm Gran Abs Auto 0.03 X10*3/uL (0.00-0.03); Imm Gran Pct Auto 0.3 % (0.0-0.4); Lymphocytes Absolute Auto 1.9 X10*3/uL (1.2-4.9); Lymphocytes Percent Auto 21.5 % (20-40); Magnesium 1.2 mg/dL (1.6-2.6); Mean Corpuscular HGB Conc 34.2 g/dl (31.0-36.0); Mean Corpuscular Hemoglobin 34.6 pg (27.0-33.0); Monocytes Absolute Auto 0.5 X10*3/uL (0.1-1.2); Monocytes Percent Auto 6.1 % (2-11); Neutrophils Percent Auto 67.8 % (45-73); Platelet Count 151 X10*3/uL (160-400); Potassium 2.8 mmol/L (3.3-5.1); Red Blood Count 3.01 X10*6/uL (4.60-5.80); Red Cell Distribution Width 15.3 % (11.0-16.0); Sodium 139 mmol/L (135-145); Total Protein 6.7 g/dL (6.5-8.0); White Blood Count 8.8 X10*3/uL (4.8-10.8)
[2022-12-14 20:58] VITALS: BP 108/68; PULSE 71; RESP 18; TEMP 36.7; O2SAT 96
[2022-12-14] MEDS: traMADoL HCL 50 MG TABLET PO (21:51)
[2022-12-14] MEDS: Gabapentin 300 MG CAPSULE PO (21:51)
[2022-12-14] MEDS: Potassium Chloride Packet 20 MEQ PACKET 40 MEQ PO (21:51)
[2022-12-14] MEDS: Magnesium Sulfate/H2O 2 GM/50 ML PIGGYBACK IV (21:53)
[2022-12-14 21:54] LABS: Magnesium 1.2 mg/dL (1.6-2.6)
[2022-12-14 23:20] VITALS: BP 92/56; PULSE 76; RESP 17; TEMP 36.7; O2SAT 97
[2022-12-14 23:29] LABS: Appearance Urine Clear; Color Urine Dark Yellow; Glucose Urine UA Negative (Negative); Leukocyte Esterase Urine Trace (Negative); Nitrite Urine Negative (Negative); Specific Gravity - Urine 1.025 (1.005-1.025); UMIC TRIGGER UACC YES; Urine Blood Negative (Negative); Urine Ketones Trace mg/dL (Negative); Urine Protein 30 (1+) mg/dL (Neg-Trace)
[2022-12-14 23:41] LABS: Bacteria Urine None Seen (None Seen); RBC Urine 0-2 /HPF (0-2); WBC Urine 0-5 /HPF (0-5)
[2022-12-15 01:44] VITALS: BP 112/66; PULSE 80; RESP 14; O2SAT 96
== END 2022-12-15 01:59 | disposition home or self-care (01) ==
PROVIDERS: Physician Assistant; Emergency Provider Emergency Medicine Emergency Medical Services
DX: D53.9 Nutritional anemia, unspecified (principal); E83.42 Hypomagnesemia; E87.6 Hypokalemia; R94.31 Abnormal electrocardiogram [ECG] [EKG]; Z79.899 Other long term (current) drug therapy
CPT/HCPCS: 36415; 80053; 81001; 83735; 85025; 93005; 96365; 96366; 99284; 99285; J3475

== ENCOUNTER 2022-12-15 02:41 | Emergency (ER) | payer OTHER, SELFPAY ==
[2022-12-15 02:46] VITALS: BP 99/64; PULSE 78; RESP 15; TEMP 36.8; O2SAT 97; BMI 23.7
--- NOTE | 2022-12-15 04:16 | ED.BACK ---
HPI - Back Pain/Injury General Chief Complaint: Back Pain/Injury Stated Complaint: Back pain Time Seen by Provider: 12/15/22 04:15 Source: patient Mode of arrival: ambulatory Limitations: no limitations History of Present Illness HPI Narrative: 52-year-old male who was seen in the emergency department earlier this more for evaluation of low magnesium which was found on preop screen for schedule back surgery 01/03/2023. Patient's magnesium and potassium was repleted the patient was discharged to the waiting room. However, the patient was unable to get a ride home , there were no taxi or Lyft service available so the patient was sitting in the waiting room in a wheelchair. He states that he need to sign back in to get help with his pain, he states that he takes tramadol and gabapentin on a regular basis and without these medications his pain is severe. Patient did receive tramadol and gabapentin while he was here earlier in the emergency department. Is currently complaining of severe lower back pain, pain is 10/10 and is worse with movement, this is consistent with his chronic back pain. Related Data Home Medications Medication Instructions Recorded Confirmed lidocaine 4 % topical patch 1 patch topical DAILY PRN Pain 09/22/22 12/01/22 Previous Rx's Medication Instructions Recorded albuterol sulfate 90 mcg/actuation 2 inh inhalation QID PRN shortness 07/08/22 aerosol inhaler of breath or wheezing 30 days #8.5 grams lidocaine 5 % topical patch 1 patch topical DAILY #15 ea 10/07/22 ibuprofen 800 mg tablet 800 mg PO Q8H PRN pain 20 days #60 10/15/22 tabs acetaminophen 325 mg tablet 650 mg (2 x 325 mg) PO Q6H PRN 10/22/22 Pain, Mild (Pain Scale 1-3) #1 tab thiamine mononitrate (vit B1) 100 100 mg PO DAILY #1 tab 10/22/22 mg tablet omeprazole 20 mg capsule,delayed 20 mg PO DAILY 90 days #90 caps 12/01/22 release ondansetron 8 mg disintegrating 8 mg PO Q12H PRN nausea and 12/01/22 tablet vomiting 14 days #28 tabs tramadol 50 mg tablet 50 mg PO DAILY PRN pain 7 days #7 12/01/22 tabs gabapentin 100 mg capsule 300 mg (3 x 100 mg) PO BEDTIME #1 12/02/22 cap folic acid 1 mg tablet 1 mg PO DAILY #30 tabs 12/07/22 magnesium oxide 400 mg (241.3 mg 800 mg (2 x 400 mg (241.3 mg 12/07/22 magnesium) tablet magnesium)) PO BIDPC #1 tab potassium chloride 20 mEq oral 20 meq PO BID 4 days #8 ea 12/07/22 packet gabapentin 300 mg capsule 300 mg PO BEDTIME 30 days #30 caps 12/08/22 magnesium 250 mg tablet 250 mg PO DAILY 90 days #90 tabs 12/14/22 potassium chloride 20 mEq 20 meq PO DAILY 90 days #90 tabs 12/14/22 tablet,extended release(part/cryst) vitamins no.162-iron 1 tab PO DAILY 90 days #90 tabs 12/14/22 gluconate 12 mg-folic acid 1 mg tablet Allergies Allergy/AdvReac Type Severity Reaction Status Date / Time No Known Allergies Allergy Verified 12/14/22 09:07 Review of Systems Review of Systems: Yes all other systems are reviewed and are negative [facility] Past Medical History Medical History Elevated liver enzymes Neuropathy Electrolyte imbalance Edema Weakness Swelling of both lower extremities Depression Screening PSA (prostate specific antigen) COVID-19 virus RNA test result positive at limit of detection Alcohol withdrawal Vomiting Acute alcoholic hepatitis Acute bronchitis Asthma Right hand pain Sciatica Alcohol abuse Lyme disease Autoimmune disease Pancreatitis Surgical History No pertinent past surgical history Family History Family History Father Heart attack Mother No problems noted. Sister No problems noted. Daughter No problems noted. Social History Social History Household Members: Spouse Housing: Homeless Housing Other:: Patient is homeless, living in a small tent with his and dog Are you a primary managed care provider to a significant other at home: No Do you presently have visiting nurse or other home services: No Alcohol intake: former Patient Tobacco Use Status: Former Tobacco user Tobacco use type: Cigarette Years Smoked: 41 e-Cigarette/Vaping Use: Never Used Second Hand Smoke Exposure: Yes Substance Use Type: Marijuana Advance Directives: Yes Advance Directives on File: Yes Advance Directives Date on File: 09/29/22 service: Yes Current occupational status: unemployed Cognitive needs: No Hearing needs: No Vision needs: No Physical Exam Vital Signs: Vital Signs: Last Vital Signs Temp 97.5 F 12/15/22 06:13 Pulse 78 12/15/22 06:13 Resp 17 12/15/22 06:13 BP 103/62 12/15/22 06:13 Pulse Ox 96 12/15/22 06:13 O2 Del Method Room Air 12/15/22 06:13 BMI result Body Mass Index 23.7 Vital signs were normal Exam: General: Awake, alert in no distress Back: Patient has tenderness palpation over his lumbar vertebrae as well as his paraspinal muscles bilaterally lives sacral area, there is no spasm Extremities: no deformities, moves all extremities symmetrically Neuro: Awake, alert, oriented, normal speech, cranial nerves intact, moves all extremities symmetrically Psych: Pleasant, cooperative Medications Administered Discontinued Medications Generic Name Dose Route Start Last Admin Trade Name Lisette PRN Reason Stop Dose Admin Gabapentin 300 mg 12/15/22 04:19 12/15/22 04:29 Gabapentin 300 Mg Capsule PO 12/15/22 04:20 300 mg ONCE ONE Administration Tramadol HCl 50 mg 12/15/22 04:19 12/15/22 04:28 Tramadol Hcl 50 Mg Tablet PO 12/15/22 04:20 50 mg ONCE ONE Administration Medical Decision Making Medical Decision Making MDM Narrative: 52-year-old male with a history of chronic lower back pain was seen here in the emergency department earlier for low magnesium and low potassium, patient was unable to get a ride home and was sitting in the emergency department 0 wheelchair which exacerbated his chronic lower back pain. Vital signs were normal. Physical examination did reveal tenderness palpation of his lumbar vertebrae as well as the paraspinal muscles in lumbar sacral area. Neurologic exam was nonfocal. Patient was given tramadol 50 mg orally and gabapentin 300 mg orally. The patient will be allowed to lie down on the stretcher until the morning when we can again try to get him a ride home. Differential Diagnosis Differential Diagnoses: The differential diagnosis associated with the presentation includes Differential diagnosis includes but is not limited to musculoskeletal pain, chronic disc disease, exacerbation of chronic pain Discharge Plan Discharge Clinical Impression: Acute exacerbation of chronic low back pain Patient Disposition: Home, Self-Care Additional Instructions: Follow the previous discharge instructions Continue taking your medications as prescribed by your providers. Follow-up with your doctor in 2 days. Please return to the emergency department if your symptoms get worse or if you develop any symptoms that are concerning to you. Prescriptions: No Action albuterol sulfate 90 mcg/actuation HFA aerosol inhaler 2 inh inhalation QID PRN (Reason: shortness of breath or wheezing) 30 Days Qty: 8.5 3RF ibuprofen 800 mg tablet 800 mg PO Q8H PRN (Reason: pain) 20 Days Qty: 60 0RF gabapentin 100 mg capsule 300 mg PO BEDTIME Qty: 1 0RF folic acid 1 mg tablet 1 mg PO DAILY Qty: 30 0RF magnesium oxide 400 mg (241.3 mg magnesium) tablet 800 mg PO BIDPC Qty: 1 0RF potassium chloride 20 mEq packet 20 meq PO BID 4 Days Qty: 8 0RF Rx Instructions: repeat lab on day 3 please gabapentin 300 mg capsule 300 mg PO BEDTIME 30 Days Qty: 30 3RF lidocaine 4 % Adhesive Patch,Medicated 1 patch TOPICAL DAILY PRN (Reason: Pain) acetaminophen 325 mg Tablet 650 mg PO Q6H PRN (Reason: Pain, Mild (Pain Scale 1-3)) Qty: 1 0RF thiamine mononitrate (vit B1) 100 mg Tablet 100 mg PO DAILY Qty: 1 0RF PNV no.162-iron glu-folic acid 12-1 mg tablet 1 tab PO DAILY 90 Days Qty: 90 0RF magnesium 250 mg tablet 250 mg PO DAILY 90 Days Qty: 90 0RF potassium chloride 20 mEq tablet,ER particles/crystals 20 meq PO DAILY 90 Days Qty: 90 0RF lidocaine 5 % adhesive patch,medicated 1 patch topical DAILY Qty: 15 0RF Rx Instructions: leave on most painful area for up to 12 hrs omeprazole 20 mg capsule,delayed release(DR/EC) 20 mg PO DAILY 90 Days Qty: 90 1RF tramadol 50 mg tablet 50 mg PO DAILY PRN (Reason: pain) 7 Days Qty: 7 0RF ondansetron 8 mg tablet,disintegrating 8 mg PO Q12H PRN (Reason: nausea and vomiting) 14 Days Qty: 28 0RF
[2022-12-15] MEDS: traMADoL HCL 50 MG TABLET PO (04:28)
[2022-12-15] MEDS: Gabapentin 300 MG CAPSULE PO (04:29)
--- NOTE | 2022-12-15 06:08 | PC.NURSE ---
Pt reporting 7 constant chronic back pain, states he has a surgery scheduled for his back, meds given per mar, Pt stated if i can sleep, pain is tolerable. pt reports positive effectiveness to meds. Pt reports using cane, pt able to walk but requesting wheelchair due to pain.
[2022-12-15 06:13] VITALS: BP 103/62; PULSE 78; RESP 17; TEMP 36.4; O2SAT 96
--- NOTE | 2022-12-15 06:50 | PC.NURSE ---
understanding to follow previous instructions given. Pt ambulated with cane to W/C independently and brought out to W/R.
== END 2022-12-15 06:51 | disposition home or self-care (01) ==
PROVIDERS: Emergency Provider Emergency Medicine Emergency Medical Services; PCP Nurse Practitioner Family
DX: M54.50 Low back pain, unspecified (principal); Z79.899 Other long term (current) drug therapy; Z87.891 Personal history of nicotine dependence
CPT/HCPCS: 99283; 99284

== ENCOUNTER 2023-01-07 19:32 | Emergency (ER) | payer OTHER, SELFPAY ==
--- NOTE | 2023-01-07 20:19 | ED.GENADULT ---
HPI - General Adult General Chief complaint: Back Pain/Injury Stated complaint: Back pain Time Seen by Provider: 01/07/23 22:14 Source: patient Mode of arrival: EMS Limitations: no limitations History of Present Illness HPI narrative: 52-year-old male with history of alcohol use disorder, hypokalemia, hypomagnesemia, chronic back pain, sciatica, degenerative disc disease, alcoholic gastritis, pancreatitis who presents emergency department for evaluation of lower back pain. Patient has been seen multiple times for fall use disorder, acute intoxication and back. He does admit to drinking alcohol this evening. He states he is homeless. He is here with his was also complaining of back pain. Patient does appear to be acutely intoxicated. He is having difficulty standing, he does have slurred speech. Related Data Home Medications Medication Instructions Recorded Confirmed magnesium 250 mg tablet 250 mg PO BID 12/20/22 Previous Rx's Medication Instructions Recorded albuterol sulfate 90 mcg/actuation 2 inh inhalation QID PRN shortness 07/08/22 aerosol inhaler of breath or wheezing 30 days #8.5 grams ibuprofen 800 mg tablet 800 mg PO Q8H PRN pain 20 days #60 10/15/22 tabs acetaminophen 325 mg tablet 650 mg (2 x 325 mg) PO Q6H PRN 10/22/22 Pain, Mild (Pain Scale 1-3) #1 tab omeprazole 20 mg capsule,delayed 20 mg PO DAILY 90 days #90 caps 12/01/22 release potassium chloride 20 mEq 20 meq PO DAILY 90 days #90 tabs 12/14/22 tablet,extended release(part/cryst) folic acid 1 mg tablet 1 mg PO DAILY #90 tabs 01/06/23 ondansetron 8 mg disintegrating 8 mg PO Q12H PRN nausea and 01/06/23 tablet vomiting 14 days #28 tabs tramadol 50 mg tablet 50 mg PO BID PRN pain 10 days #20 01/06/23 tabs Allergies Allergy/AdvReac Type Severity Reaction Status Date / Time No Known Allergies Allergy Verified 01/07/23 20:23 Review of Systems Review of Systems: Yes all other systems are reviewed and are negative PMFSH Past Medical History Medical History Anemia Elevated liver enzymes Neuropathy Electrolyte imbalance Edema Weakness Swelling of both lower extremities Depression Screening PSA (prostate specific antigen) COVID-19 virus RNA test result positive at limit of detection Alcohol withdrawal Vomiting Acute alcoholic hepatitis Acute bronchitis Asthma Right hand pain Sciatica Alcohol abuse Lyme disease Autoimmune disease Pancreatitis Surgical History No pertinent past surgical history Family History Family History Father Heart attack Mother No problems noted. Sister No problems noted. Daughter No problems noted. Social History Social History Household Members: Spouse Housing: Homeless Housing Other:: Patient is homeless, living in a small tent with his and dog Are you a primary personal care home administrator to a significant other at home: No Do you presently have visiting nurse or other home services: No Alcohol intake: current Alcohol intake frequency: a few times a week Alcohol type: hard liquor Patient Tobacco Use Status: Former Tobacco user Tobacco use type: Cigarette Years Smoked: 41 Smoked in Last 30 Days: No e-Cigarette/Vaping Use: Never Used Second Hand Smoke Exposure: Yes Use of substances other than those prescribed or required for medical reasons: No Substance Use Type: Marijuana Advance Directives: Yes Advance Directives on File: Yes Advance Directives Date on File: 09/29/22 service: Yes Current occupational status: unemployed Cognitive needs: No Hearing needs: No Vision needs: No Physical Exam ED Vital Signs: Vital Signs - 24 hr 01/07/23 20:20 Temperature 97.3 F Pulse Rate 85 Respiratory Rate 16 Blood Pressure 105/64 Pulse Oximetry 97 Oxygen Delivery Method Room Air BMI result Body Mass Index 25.1 Vital signs were normal exam: General: Patient appears to be acutely intoxicated, has a strong odor of alcohol on his breath, he is able to stand but is off balance Head: Normocephalic, atraumatic EENT: PERRL, Lids normal, sclera normal, conjunctiva normal, nose normal , ears normal, throat without erythema or exudates Neck: Supple, no adenopathy, trachea midline and nontender Lung: breath sounds symmetric, no wheezing, rales or rhonchi Chest: symmetric movement, nontender Heart: regular rate and rhythm, normal S1, S2 no murmurs or rubs Abdomen: soft, non-tender, nondistended, normal bowel sounds Back: patient has tenderness palpation over the paraspinal muscles in lumbar sacral area, there is no point vertebral tenderness Extremities: no deformities, moves all extremities symmetrically, has difficulty standing is off balance consistent with alcohol intoxication Psych: slurred speech, consistent with alcohol intoxication Course Course Course Narrative: RME performed by Orin Dupont PA-C. Patient is a 52 year old assigned male at presenting to the emergency department with chronic back pain and alcohol intoxication. Patient is homeless, here with his and service dog. Patient placed back in the waiting room pending room availability. Medications Administered Discontinued Medications Generic Name Dose Route Start Last Admin Trade Name Freq PRN Reason Stop Dose Admin Ibuprofen 400 mg 01/07/23 23:06 01/07/23 23:23 Ibuprofen 400 Mg Tablet PO 01/07/23 23:07 400 mg ONCE ONE Administration Medical Decision Making Medical Decision Making MDM Narrative: 52-year-old male with history of alcohol use disorder, hypokalemia, hypomagnesemia, chronic back pain, sciatica, degenerative disc disease, alcoholic gastritis, pancreatitis who presents emergency department for evaluation of lower back pain. patient's examination is consistent with acute alcohol intoxication consistent with his chronic back pain. Patient was given ibuprofen 400 mg orally for his pain. 23:06 start physician observation Patient appears to be too intoxicated to discharge at this time therefore will keep him in the emergency department until he is able to stand, walk and appears sober. day Differential Diagnosis Differential Diagnoses: The differential diagnosis associated with the presentation includes Differential diagnosis includes was not limited to degenerative joint disease, degenerative disc disease, musculoskeletal injury, acute alcohol intoxication Discharge Plan Discharge Clinical Impression: Acute exacerbation of chronic low back pain Alcohol intoxication Qualifiers: Complication of substance-induced condition: uncomplicated Qualified Code(s): F10.920 - Alcohol use, unspecified with intoxication, uncomplicated Patient Disposition: Home, Self-Care Prescriptions: No Action albuterol sulfate 90 mcg/actuation HFA aerosol inhaler 2 inh inhalation QID PRN (Reason: shortness of breath or wheezing) 30 Days Qty: 8.5 3RF ibuprofen 800 mg tablet 800 mg PO Q8H PRN (Reason: pain) 20 Days Qty: 60 0RF magnesium 250 mg tablet 250 mg PO BID folic acid 1 mg tablet 1 mg PO DAILY Qty: 90 0RF ondansetron 8 mg tablet,disintegrating 8 mg PO Q12H PRN (Reason: nausea and vomiting) 14 Days Qty: 28 0RF tramadol 50 mg tablet 50 mg PO BID PRN (Reason: pain) 10 Days Qty: 20 0RF acetaminophen 325 mg Tablet 650 mg PO Q6H PRN (Reason: Pain, Mild (Pain Scale 1-3)) Qty: 1 0RF potassium chloride 20 mEq tablet,ER particles/crystals 20 meq PO DAILY 90 Days Qty: 90 0RF omeprazole 20 mg capsule,delayed release(DR/EC) 20 mg PO DAILY 90 Days Qty: 90 1RF
[2023-01-07 20:20] VITALS: BP 105/64; PULSE 85; RESP 16; TEMP 36.3; O2SAT 97; BMI 25.1
[2023-01-07] MEDS: Ibuprofen 400 MG TABLET PO (23:23)
== END 2023-01-08 06:27 | disposition home or self-care (01) ==
PROVIDERS: Emergency Provider Emergency Medicine Emergency Medical Services; PCP Nurse Practitioner Family
DX: M54.50 Low back pain, unspecified (principal); F10.920 Alcohol use, unspecified with intoxication, uncomplicated; Y90.9 Presence of alcohol in blood, level not specified; Z87.891 Personal history of nicotine dependence; Z79.899 Other long term (current) drug therapy
CPT/HCPCS: 99284

== ENCOUNTER 2024-03-15 13:28 | Outpatient (AMB) | payer MEDICARE, MEDICAID, SELFPAY ==
--- NOTE | 2024-03-15 13:33 | A.OFFPC_ITS ---
Vital Signs 03/15/24 13:34 Height 5 ft 10 in Weight 167 lb BMI 24.0 BP 110/70 Blood Pressure Location Lt brachial Position Sitting Pulse 73 Pulse Source Pulse Oximeter Pulse Oximetry (%) 100 Oxygen Delivery Method Room Air Intake Visit Reasons: discharge f/up Intake Note: Pt is here today for a Hospital follow up visit. Pt states that he needs a refill on his medications. Allergies No Known Allergies Allergy (Verified 03/15/24 14:17) Medication List - Last Reconciled 03/15/24 by LAUREN Corbett-[place] acetaminophen 650 mg (2 x 325 mg) PO Q6H PRN albuterol sulfate 90 mcg/actuation 2 inhalations inhalation QID PRN 30 days folic acid 1 mg PO DAILY furosemide 40 mg PO DAILY gabapentin 300 mg PO BEDTIME ibuprofen 800 mg PO Q8H PRN 20 days magnesium 250 mg PO BID melatonin 5 mg PO BEDTIME PRN omeprazole 20 mg PO DAILY 90 days ondansetron 8 mg PO Q12H PRN 14 days potassium chloride ER 20 mEq PO DAILY 90 days ropinirole 0.5 mg PO BEDTIME spironolactone 100 mg PO DAILY tramadol 50 mg PO BID PRN 10 days vitamin B complex 1 tab PO DAILY Tobacco use date assessed: 03/15/24 Dental Screening Dental Screen Date: 12/14/22 HPI discharge f/up HPI Details Chief Complaint Severe lower back pain with numbness, tingling, and weakness in bilateral lower extremities. History of Present Illness The patient is a 53-year-old male presenting with severe lower back pain with numbness, tingling, and weakness in bilateral lower extremities. He has been in a wheelchair due to these symptoms, which have persisted for over a year. Over a year and a half ago, there was a discussion regarding surgical intervention for a lumbar spine disorder, specifically an L5-S1 lumbar fusion with decompression of the L5 foramina. In the past, the patient had alcohol and nicotine use concerns, which posed a challenge for surgical qualification. However, he reports being alcohol-free for over a year, although the smoking cessation was temporary, and he has resumed smoking. Previously, treatment options were limited due to his substance use history, but the current plan involves reassessment for surgical eligibility. NOTE: want to be his home health aide. they will look into this further. HCP form given to pt. Social History - Lives with significant other and a dog in a hotel - Alcohol use disorder in remission for over a year - History of smoking, currently resumed after cessation Health Maintenance Review of Systems Physical Exam General: Cooperative, jaundice Orientation: Patient oriented x3 Limitations: Severe weakness of bilateral lower extremities, currently in a wheelchair Head: Normal to inspection Ears: Hearing grossly normal bilaterally Nose: Normal external nose present Face and sinus: Normal facial exam Eyes: Appearance normal, both eyes and all related structures Neck: Normal visual inspection and Yes full ROM Respiratory: Normal respiratory effort and able to speak in complete sentences. Clear to auscultation bilaterally Cardiovascular: Regular rate and rhythm. Normal S1 and S2 GI: Normal to inspection. Soft to palpation and nontender Skin: Jaundice pigmentation noted Neuro: Patient oriented x3, minimal sensation of bilateral extremities, can feel pressure when palpated Extremities: Minimal sensation of bilateral extremities, severe weakness, can feel pressure when palpated, pedo pulses bilaterally present Results Plan - Reach out to the patient's neurosurgeo n to discuss qualification for possible lumbar spine surgery given previous history and substance use. - Obtain and review laboratory tests for further evaluation of jaundice and overall health status. - Encourage smoking cessation due to its effect on surgical healing processes and overall health. Patient was informed and verbally consented to the use of an ambient scribe for clinic note documentation during this visit. Discussion Notes I discussed with the patient the potential for future surgical intervention on the lumbar spine, highlighting the previous issues with alcohol and smoking that affected his surgical candidacy. The importance of maintaining sobriety and pursuing smoking cessation was emphasized, especially considering the impact of smoking on surgical recovery. I plan to consult with his neurosurgeon to explore any potential for upcoming surgery. Patient Instructions - Continue to abstain from alcohol and w ork towards smoking cessation. - Await further instructions on laborato ry tests and potential surgery discussions. - Monitor and report any significant mario nges in symptoms, particularly worsening neuromuscular function or changes in jaundice. [facility] Medical History (Updated 03/15/24 @ 14:01 by Gulshan Chanel, [facility]) Screening PSA (prostate specific antigen) Weakness Anemia Elevated liver enzymes Neuropathy Electrolyte imbalance Edema Swelling of both lower extremities Depression COVID-19 virus RNA test result positive at limit of detection Alcohol withdrawal Vomiting Acute alcoholic hepatitis Acute bronchitis Asthma Right hand pain Sciatica Alcohol abuse Lyme disease Autoimmune disease Pancreatitis Surgical History No pertinent past surgical history Family History Father Heart attack Mother No problems noted. Sister No problems noted. Daughter No problems noted. Social History Household Members: Spouse Housing: Homeless Housing Other:: Patient is homeless, living in a small tent with his and dog Are you a primary critical care registered nurse to a significant other at home: No Do you presently have visiting nurse or other home services: No Alcohol intake: current Alcohol intake frequency: a few times a week Alcohol type: hard liquor Comment: refused bed alarm Patient Tobacco Use Status: Current someday Tobacco user Tobacco use type: Cigarette Cigarettes Per Day: 1 Years Smoked: 41 e-Cigarette/Vaping Use: Never Used Second Hand Smoke Exposure: Yes Substance Use Type: Marijuana Advance Directives Date on File: 09/29/22 service: Yes Current occupational status: unemployed Cognitive needs: No Hearing needs: No Vision needs: No Questionnaire PHQ-9 Over the last 2 weeks, how often have you been bothered by any of the following problems? 1. Little interest or pleasure in doing things: several days 2. Feeling down, depressed, or hopeless: several days 3. Trouble falling or staying asleep, or sleeping too much: more than half the days 4. Feeling tired or having little energy: several days 5. Poor appetite or overeating: not at all 6. Feeling bad about yourself - or that you are a failure or have let yourself or your family down: more than half the days 7. Trouble concentrating on things, such as reading the newspaper or watching television: not at all 8. Moving or speaking so slowly that other people could have noticed. Or the opposite - being so fidgety or restless that you have been moving around a lot more than usual: not at all 9. Thoughts that you would be better off or of hurting yourself in some way: not at all Total score: 7 Depression Screening Interpretation: Negative Depression Screening Done: Yes [id number] - PHQ-9 Billing: Yes Source: Developed by Drs. Angelica Parsons Kurt Kroenke and colleagues, with an educational stefano from [employer]. Thrive Questionnaire Date Thrive assessed: 03/15/24 I am a: Patient What is your living situation today?: I do not have a steady places to live I am staying at a hotel Within the past 12 months, did the food you bought not last and you didn't have the money to get more?: I choose not to answer this question Within the past 12 months, did you worry whether your food would run out before you got money to buy more?: I choose not to answer this question Do you have trouble paying for medicines?: No Do you have trouble getting transportation to medical appointments?: Yes Do you have trouble paying your heating and electricity bill?: I choose not to answer this question Do you have trouble taking care of your child, family member or friend?: No Do you have trouble with day-to-day activities such as bathing, preparing meals, shopping, managing finances, etc.?: Yes Are you currently unemployed and looking for a job?: No Are you interested in more education?: No Currently or been in a relationship where the following occur: No concerns reported THRIVE Score: 2 SILVINA-7 AMB Questionnaire SILVINA-7 Date SILVINA - 7 assessed: 03/15/24 Feeling nervous, anxious, or on edge: 2 = More than half the days Not being able to stop or control worryin = Several days Worrying too much about different things: 2 = More than half the days Trouble relaxin = Several days Being so restless that it is hard to sit still: 0 = Not at all Becoming easily annoyed or irritable: 0 = Not at all Feeling afraid as if something awful might happen: 1 = Several days Total SILVINA-7 score (0-4 normal; 5-9 mild; 10-14 moderate; 15-21 severe): 7 Source: Developed by Angelica Grace Kurt Kroenke and colleagues, with an educational stefano from [employer]. SILVINA-7 Assessment Billing SILVINA-7 Assessment Tool: SILVINA-7 Assessment 39727 Physical exam (Primary Care) Vital Signs: Last Vital Signs Pulse 73 03/15/24 13:34 BP 110/70 03/15/24 13:34 Pulse Ox 100 03/15/24 13:34 Oxygen Delivery Method Room Air 03/15/24 13:34 BMI result Body Mass Index 24.0 Tobacco/Smoking Status: Tobacco use Status Tobacco use date assessed 03/15/24 03/15/24 13:34 Patient Tobacco Use Status Current someday Tobacco 03/15/24 13:53 Tobacco use type Cigarette 03/15/24 13:34 e-Cigarette/Vaping Use Never Used 03/15/24 13:34 PHQ-9: PHQ-9 Score PHQ-9: Total score 7 03/15/24 14:43 Depression Screening Interpretation: Negative Thrive Assessment: Date of Thrive Assessment Date Thrive assessed 03/15/24 03/15/24 13:34 Currently or been in a relationship where the following occur: No concerns reported Office Procedures Flu Questionnaire Does the patient have a severe egg allergy?: No Does the patient have severe life threatening allergies?: No Does the patient have a fever or illness today?: No Has the patient ever had Guillain-[place] Syndrome?: No Has the patient ever had any past reaction to a flu shot?: No Immunizations Fluarix Triv (PF) 45 mcg (15 mcg x 3)/0.5 mL IM syringe Performing Provider: TRACEE Corbett Performing Location: [facility] Administered by: CHAPINCITO Harris on 03/15/24 14:43 Dose Route Admin Location Dispensed Lot Number Expiration Date [facility] Database Technician 0.5 mL IM Left Deltoid 0.5 mL [id number] 09/17/24 [id number] [facility] VIS Given Date VIS Provided VIS Publication Date 03/15/24 Single Vaccine 20 Eligibility Eligibility Date Funding Source Not VFC Eligible 03/15/24 Private pneumoc 20-nelson conj-dip cr(PF) 0.5 mL IM syringe Performing Provider: TRACEE Corbett Performing Location: [facility] Adult [facility] Administered by: CHAPINCITO Harris on 03/15/24 14:44 Dose Route Admin Location Dispensed Lot Number Expiration Date [facility] Database Technician 0.5 mL IM Right Deltoid 0.5 mL [id number] 04/ MARIO/Pantry VIS Given Date VIS Provided VIS Publication Date 03/15/24 Single Vaccine 21 Eligibility Eligibility Date Funding Source Not [facility] Eligible 03/15/24 Private Coding Level of Care Code Est Pt Level 3 (65868) Diagnoses Chronic back pain M54.9; G89.29 DDD (degenerative disc disease), lumbar M51.36 Weakness R53.1 Screening PSA (prostate specific antigen) Z12.5 Low magnesium level R79.0 Additional Codes SILVINA-7 Assessment Billing - SILVINA-7 Assessment Tool: SILVINA-7 Assessment 43367 ([id number]) PHQ-9 - 00737 - PHQ-9 Billing: Yes ([id number]) Assessment & Plan Assessment & Plan (1) Chronic back pain: Code(s): M54.9 - Dorsalgia, unspecified; G89.29 - Other chronic pain Category: Medical (2) DDD (degenerative disc disease), lumbar: Code(s): M51.36 - Other intervertebral disc degeneration, lumbar region Category: Medical (3) Weakness: Code(s): R53.1 - Weakness Category: Medical (4) Screening PSA (prostate specific antigen): Code(s): Z12.5 - Encounter for screening for malignant neoplasm of prostate Category: Medical Plan: . (5) Low magnesium level: Code(s): R79.0 - Abnormal level of blood mineral Category: Medical Plan . Orders: Orders Complete Blood Count Auto Diff Today G89.29 - Other chronic pain, M51.36 - Other intervertebral disc degeneration, lumbar region, M54.9 - Dorsalgia, unspecified, R53.1 - Weakness Comprehensive [place]. Panel Fast Today G89.29 - Other chronic pain, M51.36 - Other intervertebral disc degeneration, lumbar region, M54.9 - Dorsalgia, unspecified, R53.1 - Weakness TSH reflex Free T4 Today G89.29 - Other chronic pain, M51.36 - Other intervertebral disc degeneration, lumbar region, M54.9 - Dorsalgia, unspecified, R53.1 - Weakness Lipid Panel Today G89.29 - Other chronic pain, M51.36 - Other intervertebral disc degeneration, lumbar region, M54.9 - Dorsalgia, unspecified, R53.1 - Weakness Vitamin B12 and Folate Today R53.1 - Weakness Magnesium Today R79.0 - Abnormal level of blood mineral UA CC w/rflx Micro + Cult Today G89.29 - Other chronic pain, M51.36 - Other intervertebral disc degeneration, lumbar region, M54.9 - Dorsalgia, unspecified, R53.1 - Weakness Prostate Specific Antigen Scr Today Z12.5 - Encounter for screening for malignant neoplasm of prostate Influenza [id number] Immunization Today Z23 - Encounter for immunization Pneumococcal 20 Immunization Today Z23 - Encounter for immunization Medications: New vitamin B complex 1 tab PO DAILY 90 tabs 0RF 90 days Changed From gabapentin 300 mg PO BEDTIME 90 caps 0RF To gabapentin 2 cap as needed and 3 at night 300 mg PO BEDTIME
[2024-03-15 13:34] VITALS: BP 110/70; PULSE 73; O2SAT 100; BMI 24.0
== END 2024-03-15 14:41 | disposition home or self-care (01) ==
PROVIDERS: PCP Nurse Practitioner Family; Visit Provider Nurse Practitioner Family
DX: M54.9 Dorsalgia, unspecified (principal); G89.29 Other chronic pain; M51.369 Other intervertebral disc degeneration, lumbar region without mention of lumbar back pain or lower extremity pain; R53.1 Weakness; Z12.5 Encounter for screening for malignant neoplasm of prostate; R79.0 Abnormal level of blood mineral; Z23 Encounter for immunization

== ENCOUNTER → 2024-03-15 13:28 | Outpatient (BNVA) | payer MEDICARE, SELFPAY | PROVIDERS: PCP Nurse Practitioner Family; Visit Provider Nurse Practitioner Family | DX: Z23 Encounter for immunization (principal); M54.9 Dorsalgia, unspecified; G89.29 Other chronic pain; R53.1 Weakness; M51.360 Other intervertebral disc degeneration, lumbar region with discogenic back pain only; R79.0 Abnormal level of blood mineral | CPT/HCPCS: 90471; 90472; 90656; 90677; 96127; 99212 ==

== ENCOUNTER 2024-05-30 09:51 | Outpatient (REF) | payer MEDICARE, MEDICAID, SELFPAY ==
--- NOTE | ~2024-05-30 | MR_ITS ---
EXAMINATION: MR LUMBAR SPINE WITHOUT CONTRAST CLINICAL INFORMATION: Chronic radicular low back pain. COMPARISON: July 21, 2022 demonstrated spondylosis at L4-5 and L5-S1. TECHNIQUE: MRI of the lumbar spine was obtained using routine sequences without contrast. FINDINGS: Left rib-bearing vertebra labeled T12. No bone marrow STIR signal abnormality. Modic type II endplate changes at L5-S1. Disc desiccation L5-S1 and to a lesser extent L4-5 and T11-T12. There is normal alignment. Conus medullaris ends at intervertebral disc T12-L1 with normal signal. T12-L1: No central spinal canal or neuroforamina stenosis. L1-2: Broad-based disc bulging. Facet joint hypertrophy. No compression upon neural elements. L2-3: Broad-based disc bulging. Facet joint and ligamentum flavum hypertrophy. Bilateral neuroforamina narrowing. No central spinal canal stenosis. L3-4: Broad-based disc bulging. Facet joint hypertrophy. No central spinal canal stenosis. Bilateral neuroforamina narrowing. L4-5: Broad-based disc bulging. Facet joint hypertrophy. No central spinal canal stenosis. Bilateral neuroforamina narrowing. L5-S1: Broad-based disc bulging. Facet joint hypertrophy. 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 Bilateral neuroforamina narrowing, left greater than the right side compressing the left L5 encroaching the left S1 and the right L5 nerve root. No prevertebral compartment hematoma, mass or fluid collection. There is a ascites, moderate to large volume.. MR/MR lumbar spine wo con IMPRESSION: Multilevel lumbar spondylosis L2-3 to L5-S1 resulting in bilateral neuroforamina narrowing/stenosis moderate to severe on the left L5-S1 and moderate on the remaining levels likely compressing the left L5 and encroaching the left S1 nerve root. Ascites, large volume. Electronically signed by: Marc Nichole MD 05/30/2024 11:40 AM EDT
--- OUTSIDE RECORDS SUMMARY | 2024-05-30 11:04 | XMS_ITS | Encounter Summary ---
Author Organization [facility] Address [address] [place] [address] Care Team Providers Care Streetcar Conductor Name Role Phone Gulshan Chanel Primary Care Provider [phone] Encounter Details Date Type Department Care Team (Late st Contact Info) Description 05/24/2024 Telephone [facility] Transplant Department [address] [place] [address] Angela Weaver RN Social History Tobacco Use Types Packs/Day Years Used Date Smoking Tobacco: Every Day Cigarettes Smokeless Tobacco: Never Alcohol Use Standard Drinks/Week Comments Not Currently 0 (1 standard drink = 0.6 oz pur e alcohol) quit 1 year ago Sex and Gender Information Value Date Recorded Sex Assigned at Male 04/17/2024 11:16 AM EST Legal Sex Male 3:49 PM EST Gender Identity Not on file Sexual Orientation Not on file documented as of this encounter Miscellaneous Notes * Telephone Encounter - Blanca Wilkins - 05/24/2024 2:55 PM EST Confirmed with DIANNE Pierson appt at [facility] on 05/28 at 9:50 NPO 4 hours no caffeine for 12 hours . Provided [facility] number [phone] documented in this encounter Plan of Treatment Upcoming Encounters Date Type Department Care Team (Late st Contact Info) Description 06/11/2024 10:30 AM EDT Follow-Up [facility] Trans[facility] Services [address] [place] [address] Nathan Ortiz MD [address] [place] [phone] 06/11/2024 11:00 AM EDT Clinical Support [facility] [address] [place] [phone] documented as of this encounter Visit Diagnoses Not on filedocumented in this encounter Care Teams Streetcar Conductor Relationship Specialty Start Date End Date Gulshan Chanel [address] [place] [address] PCP - General 04/17/24 documented as of this encounter
--- OUTSIDE RECORDS SUMMARY | 2024-05-30 11:04 | XMS_ITS | Encounter Summary ---
Author Organization [facility] Address [address] [place] [address] Care Team Providers Care Cloth Printer Helper Name Role Phone Gulshan Chanel Primary Care Provider +1- [phone] Encounter Details Date Type Department Care Team (Late st Contact Info) Description 05/16/2024 Orders Only [facility] Transplant Department [address] [place] [address] Angela Weaver RN Alcoholic cirrhosis of liver with ascites (CMS/HCC) (HCC) (Primary Dx) Social History Tobacco Use Types Packs/Day Years [...] on file documented as of this encounter Plan of Treatment Upcoming Encounters Date Type Department Care Team (Late st Contact Info) Description 06/11/2024 10:30 AM EDT Follow-Up [facility] Liver Transplant Services [address] [place] [address] Nathan Ortiz MD [address] [place] [address] 06/11/2024 11:00 AM EDT Clinical Support [facility] Liver Transplant Services [address] [place] [address] Scheduled Orders Name Type Priority Associated Diagnoses Orde r Schedule Protime-INR Lab Routine Alcoholic cirrhosis of liver with ascites (CMS/HCC) (HCC) Expected: 05/31/2024, Expires: 05/16/2025 CBC Auto Differential Lab Routine Alcoholic cirrhosis of liver with ascites (CMS/HCC) (HCC) Expected: 05/31/2024, Expires: 05/16/2025 Comprehensive Metabolic Panel Lab Routine Alcoholic cirrhosis of liver with ascites (CMS/HCC) (HCC) Expected: 05/31/2024, Expires: 05/16/2025 Phosphatidylethanol (PEth) Lab Routine Alcoholic cirrhosis of liver with ascites (CMS/HCC) (HCC) Expected: 05/31/2024, Expires: 05/16/2025 ABO/RH Blood Type Lab Routine Alcoholic cirrhosis of liver with ascites (CMS/HCC) (HCC) Expected: 05/17/2024, Expires: 05/17/2025 documented as of this encounter Visit Diagnoses Diagnosis Alcoholic cirrhosis of liver with ascites (CMS/HCC) (HCC)- Primary documented in this encounter Care Teams Cloth Printer Helper Relationship Specialty Start Date End Date Gulshan Chanel [address] [place] [address] PCP - General 04/17/24 documented as of this encounter
--- OUTSIDE RECORDS SUMMARY | 2024-05-30 11:05 | XMS_ITS | Encounter Summary ---
Author Organization [facility] Address [address] [place] [address] Care Team Providers Care Marketing Compliance Manager Name Role Phone Gulshan Chanel Primary Care Provider +1- [phone] Encounter Details Date Type Department Care Team (Late st Contact Info) Description 05/16/2024 Telephone [facility] Transplant Department [address] [place] [address] [phone] Angela Weaver RN Social History Tobacco Use [...] encounter Miscellaneous Notes * Telephone Encounter - Angela Weaver RN - 05/16/2024 11:39 AM EST Spoke to Dangelo, he will call Dr Allen office to get EGD/ colo ordered. He is feeling foggy and unable to think quickly/ get words out. Encouraged patient to increase lactulose for the next few days with a goal of 3-4 BM a day. Normally has 2. Encouraged to call back with worsening symtpoms. Can go back to normal dosing if clear after a few days. Updated Dr Allen's office, they will reach out (again) about EGD and colo. Aware that +PETH may delay his evaluation/ listing liver committee. documented in this encounter Plan of Treatment Upcoming Encounters Date Type Department Care Team (Late st Contact Info) Description 06/11/2024 10:30 AM EDT Follow-Up [facility] Liver Transplant Services [address] [place] [address] Nathan Ortiz MD [address] [place] [address] 06/11/2024 11:00 AM EDT Clinical Support [facility] Liver Transplant Services [address] [place] [address] documented as of this encounter Visit Diagnoses Not on filedocumented in this encounter Care Teams Marketing Compliance Manager Relationship Specialty Start Date End Date Gulshan Chanel [address] [place] [address] PCP - General 04/17/24 documented as of this encounter
--- OUTSIDE RECORDS SUMMARY | 2024-05-30 11:05 | XMS_ITS | Encounter Summary ---
Author Organization [facility] Address [address] [place] [address] Care Team Providers Care Bulb Inspector Name Role Phone Gulshan Chanel Primary Care Provider +1- [phone] Encounter Details Date Type Department Care Team (Late st Contact Info) Description 05/01/2024 Telephone [facility] Transplant Department [address] [place] [address] Angela Weaver RN Social History Tobacco Use Types Packs/Day Years Used Date Smoking Tobacco: Every Day Cigarettes Smokeless Tobacco: Former Sex and Gender Information Value Date Recorded Sex Assigned at Male 04/17/2024 11:16 AM EST Legal Sex Male 3:49 PM EST Gender Identity Not on file Sexual Orientation Not on file documented as of this encounter Miscellaneous Notes * Telephone Encounter - Blanca Wilkins - 05/01/2024 3:39 PM EST Error documented in this encounter Plan of Treatment Upcoming Encounters Date Type Department Care Team (Late st Contact Info) Description 06/11/2024 10:30 AM EDT Follow-Up [facility] Liver Transplant Services [address] [place] [address] Nathan Ortiz MD [address] [place] [address] 06/11/2024 11:00 AM EDT Clinical Support [facility] Liver Transplant Services [address] [place] [address] documented as of this encounter Visit Diagnoses Not on filedocumented in this encounter Care Teams Bulb Inspector Relationship Specialty Start Date End Date Gulshan Chanel [address] [place] [address] PCP - General 04/17/24 documented as of this encounter
--- OUTSIDE RECORDS SUMMARY | 2024-05-30 11:05 | XMS_ITS | Encounter Summary ---
Author Organization [facility] Address [address] [place] [address] Care Team Providers Care Director Mortgage Name Role Phone Gulshan hCanel Primary Care Provider +1- [phone] Reason for Referral * Cardiac Diagnostic Testing (Routine) - Closed Specialty Diagnoses / Procedures Referred By Billy younger Referred To Contact Diagnoses Encounter for pre-transplant evaluation for liver transplant Procedures Echocardiogram dobutamine stress test (DSE) Yunior Pérez MD [address] [place] [address] Phone: tel: fax: Referral ID Status Reason Start Date Expiration Date Visits Re quested Visits Authorized [id number] Closed 05/18/2024 11/17/2025 1 1 Encounter Details Date Type Department Care Team (Late st Contact Info) Description 05/18/2024 Orders Only [facility] Transplant Department [address] [place], [place] [phone] Angela Weaver, LUDY Encounter for pre-transplant evaluation for liver transplant (Primary Dx) Social History Tobacco Use Types [...] Description 06/11/2024 10:30 AM EDT Follow-Up [facility] Liver Transplant Services [address] [place] [address] Nathan Ortiz MD [address] [place] [address] 06/11/2024 11:00 AM EDT Clinical Support [facility] Liver Transplant Services [address] [place] [address] Scheduled Orders Name Type Priority Associated Diagnoses Order Schedule Echocardiogram dobutamine stress test (DSE) Stress Echocardiography Routine Encounter for pre-transplant evaluation for liver transplant Expected: 05/18/2024, Expires: 05/18/2026 documented as of this encounter Visit Diagnoses Diagnosis Encounter for pre-transplant evaluation for liver transplant- Primary documented in this encounter Care Teams Director Mortgage Relationship Specialty Start Date End Date Gulshan Chanel [address] [place] [address] PCP - General 04/17/24 documented as of this encounter
--- OUTSIDE RECORDS SUMMARY | 2024-05-30 11:05 | XMS_ITS | Encounter Summary ---
Author Organization [facility] Address [address] [place] [address] Care Team Providers Care Forestry Aid Name Role Phone Gulshan Chanel Primary Care Provider +1- [phone] Reason for Visit * Transplant (Routine) - Authorized Specialty Diagnoses / Procedures Referred By Billy younger Referred To Contact Transplant Diagnoses Liver Transplant Evaluation Erin Allen MD [address] [facility] [address] [place] [address] Phone: tel: fax: [facility] Liver Transplant Services [address] [place] [address] Phone: tel: fax: Referral ID Status Reason Start Date Expiration Date V isits Requested Visits Authorized [id number] Authorized 03/15/2024 03/16/2025 99 99 Encounter Details Date Type Department Care Team ([facility] st Contact Info) Description 05/11/2024 1:00 PM EST Office Visit [facility] Liver Transplant Services [address] [place] [address] Nathan Ortiz MD [address] [place] [address] Encounter for pre-transplant evaluation for chronic liver disease (Primary Dx) Social History Tobacco Use Types [...] on file documented as of this encounter Progress Notes * Nathan Ortiz MD - 05/11/2024 1:44 PM EST I met with Dangelo with his present in the transplant clinic today we spoke for 40 minutes. I spent an additional 10 minutes reviewing his record to prepare for the visit, dictate this note, do thenecessary test to complete the encounter for total of 50 minutes spent on his care today. H He is a 54-year-old man who has been diagnosed with hepatic cirrhosis thought to be due to alcohol use who is currently undergoing multidisciplinaryevaluation to be considered for placement of the liver transplant waitlist. He became aware of his liver disease after he was at a rehab debilitation facility for back injury and they noticed abnormal blood tests consistent with hepatic dysfunction. He acknowledges that his alcohol use was a cause of his liver disease. He states that for many years he predominantly drank beer up to a sixpack in a day but as a result of the severe back pain he was experiencing he began drinking hard liquor, predominantly whiskey, on an almost daily basis. He states that he would drink a half a pint of whiskey per day and did so over several years for self-medication of severe back pain. He stated that he is last use of alcohol was December 2022. He has used some marijuana products specifically edibles to help with pain. He denies history of depression or anxiety. He states that he never had operating under the influence arrest and his alcohol use did not interfere with his work. 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 He was alert and attentive and cooperative in the interview. His speech was slightly pressured but normal volume and tone. Thought form was coherent and goal-directed with some circumstantiality. Mood was normal not depressed or anxious. Cognitive function was not formally tested. Insight and judgment appeared adequate. Dangelo has capacity to consent to liver transplant surgery or other aspects of medical and surgical care and treatment. His who is present for most of the interview was obviously very concerned and asked very good questions in the process. She appeared to be an excellent support person. I spoke with him and his in detail about some of the emotional impacts and adverse effects that can occur in the context of worsening liver disease, undergoing a major surgery like liver transplant and also as a result of issues that may come up during the recovery from the surgery. I also explained that some of the immunosuppressant medications especially the steroids like prednisone can have mood changing adverse effects that may require temporary management with mood stabilizing medications. He is committed to abstinence from alcohol. Diagnosis is alcohol use disorder, severe, in remission documented in this encounter Plan of Treatment Upcoming Encounters Date Type Department Care Team (Late st Contact Info) Description 06/11/2024 10:30 AM EDT Follow-Up [facility] Liver Transplant Services [address] [place] [address] Nathan Ortiz MD [address] [place] [address] 06/11/2024 11:00 AM EDT Clinical Support [facility] Liver Transplant Services [address] [place] [address] documented as of this encounter Visit Diagnoses Diagnosis Encounter for pre-transplant evaluation for chronic liver disease- Primary documented in this encounter Care Teams Forestry Aid Relationship Specialty Start Date End Date Gulshan Chanel: [phone] [address] [place] [address] PCP - General 04/17/24 documented as of this encounter
--- OUTSIDE RECORDS SUMMARY | 2024-05-30 11:05 | XMS_ITS ---
Author Organization [facility] Address [address] [place] [address] Care Team Providers Care Customer Orders Clerk Name Role Phone Gulshan Chanel Primary Care Provider +1- [phone] Transplant Episode Liver Candidate [facility] ([place], [place]) - [facility] Evaluation began on 04/17/2024 Marked as Active on 04/17/2024 Reason: Workup Liver CoordinatorAngela Weaver RN Phone: N/A Fax: N/A Email: N/A Scores Score Value Updated Expires Exceptions/Cady sons CPRA Not available UNOS MELD Not available MELD (Calc) 18 05/11/2024 [place] Organ Diagnosis Organ Primary Contributory Liver Alcohol-Associated C irrhosis Without Acute Alcohol-Associated Hepatitis Care Team Name Role Phone Fax Email Angela Weaver RN Liver Coordinator N/A N/A N/A Yunior Pérez MD Chip Machine Operator [phone] Rosana [email or web address] Erin Allen MD Referring Physician [phone] [email or web address] Pre-Transplant Referred: 03/15/2024 Evaluation began: 04/17/2024 Appointments (05/02/2024 - 06/30/2024) When With Visit Type Description 05/11/2024 Radiology - Carie Pérez CT Liver 05/11/2024 Transplant - Nicolás Barr Transpla nt Evaluation Visit Awaiting organ transplant (Primary Dx) 05/11/2024 Transplant - Barber-Anoop Garcia Transplant Evaluation Visit 05/11/2024 Transplant - Richar Ortiz Transpla nt Evaluation Visit Encounter for pre-transplant evaluation for chronic liver disease (Primary Dx) 05/11/2024 Transplant - Ying M Transp lant Evaluation Visit 05/11/2024 Transplant - Co, M Transplant Ev aluation Visit Special screening examination for infectious diseases (Primary Dx); Encounter for pre-transplant evaluation for liver transplant; Cytomegalovirus infection, unspecified cytomegaloviral infection type (HCC) 05/11/2024 Transplant - Movahed i, B Transplant Evaluation Visit Alcoholic cirrhosis of liver with ascites (CMS/HCC) (HCC) (Primary Dx); Portal hypertension (CMS/HCC) (HCC); Moderate protein-calorie malnutrition (HCC); Secondary esophageal varices without bleeding (HCC) 05/11/2024 Heart Vasc - Carie Pérez Tr ansthoracic Echocardiogram 06/11/2024 Transplant Office Visit 06/11/2024 Transplant - Richar Ortiz Follow U p
--- OUTSIDE RECORDS SUMMARY | 2024-05-30 11:05 | XMS_ITS | Encounter Summary ---
Author Organization [facility] Address [address] [place] [address] Care Team Providers Care Sales Representative Uniforms Name Role Phone Gulshan Chanel Primary Care Provider [phone]- [phone] Reason for Visit * MRI/CAT/PET Scan (Routine) - Closed Specialty Diagnoses / Procedures Referred By Billy younger Referred To Contact Diagnoses Encounter for pre-transplant evaluation for liver transplant Procedures CT 3 Phase Liver Mass With Pelvis Yunior Pérez MD [address] [place] [address] Phone: tel: fax: Referral ID Status Reason Start Date Expiration Date Visits Re quested Visits Authorized [id number] Closed 04/17/2024 10/17/2025 1 1 Encounter Details Date Type Department Care Team (Latest Contact Info) Description 05/11/2024 10:28 AM EST - 05/11/2024 11:59 PM EST Hospital Encounter [facility] CT Scan [address] [place] [address] Yunior Pérez MD [address] [place] [address] Discharge Disposition: Home or Self Care () Social History Tobacco Use Types Packs/Day Years [...] on file documented as of this encounter Medications at Time of Discharge albuterol (PROAIR HFA,VENTOLIN HFA) 90 mcg inhaler 03/29/2024 food supplemt, lactose-reduced (Boost Plus) 0.06 gram- 1.5 kcal/mL liquidIndications:He patic cirrhosis, unspecified hepatic cirrhosis type, unspecified whether ascites present (CMS/HCC) (HCC),Moderate protein-calorie malnutrition (HCC) Take 1 Bottle by mouth 2 (two) times a day. 45031 mL 3 05/11/2024 furosemide (LASIX) 40 mg tablet 03/29/2024 gabapentin (NEURONTIN) 300 mg capsule 03/29/2024 ibuprofen (MOTRIN) 800 mg tablet 03/29/2024 lactulose 10 gram/15 mL solution SMARTSI Milliliter(s ) By Mouth Twice Daily 03/12/2024 magnesium oxide 250 mg magnesium tablet Take 250 mg by mouth once a day. 04/24/2024 bstkfuh-SQGL-fea-nelson er-hops-lm 0.15-10-864-200 mg capsule 5 mg. 10/11/2023 omeprazole (PriLOSEC) 20 mg capsule 03/29/2024 ondansetron ODT (ZOFRAN ODT) 8 mg disintegrating tablet 03/29/2024 potassium chloride ER (KLOR-CON) 20 mEq tablet 03/29/2024 rOPINIRole (REQUIP) 0.5 mg tablet Take 0.5 mg by mouth. 05/02/2023 spironolactone (ALDACTONE) 100 mg tablet 03/29/2024 thiamine HCl (VITAMIN B1) 100 mg tablet Take 100 mg by mouth once a day. 04/23/2024 traMADoL (ULTRAM) 50 mg tablet 04/05/2024 vitamin B complex tablet extended release Take by mouth. 05/02/2023 documented as of this encounter Plan of Treatment Upcoming Encounters Date Type Department Care Team (Late st Contact Info) Description 06/11/2024 10:30 AM EDT Follow-Up [facility] Liver Transplant Services [address] [place] [address] Nathan Ortiz MD [address] [place] [address] 06/11/2024 11:00 AM EDT Clinical Support [facility] Liver Transplant Services [address] [place] [address] documented as of this encounter Procedures * Due to [place] state law, this organization might not be sharing negative HIV tests. Procedure Name Priority Date/Time Associated Diagnosis Comments CT 3 PHASE LIVER MASS WITH PELVIS Routine 05/11/2024 11:03 AM EST Encounter for pre-transplant evaluation for liver transplant CT CHEST W CONTRAST Routine 05/11/2024 1 1:03 AM EST Encounter for pre-transplant evaluation for liver transplant documented in this encounter Visit Diagnoses Not on filedocumented in this encounter Administered Medications Inactive Administered Medications - up to 3 most recent administrations Medication Order MAR Action Action Date Dose Rate Site iohexoL (OMNIPAQUE) 350 mg iodine/mL contrast 10-200 mL 10-200 mL, intravenous, Once, On 05/11/24 at 1045, 1 dose, Imaging Protocol Orders Given 05/11/2024 10:44 AM EST 100 mL documented in this encounter Care Teams Sales Representative Uniforms Relationship Specialty Start Date End Date Gulshan Chanel [address] [place] [address] PCP - General 04/17/24 documented as of this encounter
--- OUTSIDE RECORDS SUMMARY | 2024-05-30 11:05 | XMS_ITS | Encounter Summary ---
Author Organization [facility] Address [address] [place] [address] Care Team Providers Care Industrial Psychologist Name Role Phone Gulshan Chanel Primary Care Provider [phone] Encounter Details Date Type Department Care Team (Late st Contact Info) Description 05/16/2024 Telephone [facility] [address] [place] [address] Dry Kiln Worker: Yunior Bravo MD [address] [place] [address] Social History Tobacco Use Types Packs/Day Years [...] encounter Miscellaneous Notes * Telephone Encounter - Stephen Nobles - 05/16/2024 1:26 PM EST PT called after speaking with Dr Wick and PT wanted to add something and requesting a call back at [phone] * Telephone Encounter - Yunior Pérez MD - 05/16/2024 1:15 PM EST Spoke with Dangelo to review labs. Will send vitamin replacements for zinc, vitamin A, and D. Discussed mildly positive PEth. He will stop cooking with any wine. Denies consuming alcohol. Hyponatremia to 127 noted. He will get labs done at [facility] the week of 05/28. This will include MELD labs and a repeat PEth. Reviewed his [address] No abdominal pain. Will hold off on pursuing ERCP at this time. CT chest read pending Reviewed satisfactory TTE. Will need to return to clinic to see me in the next 2 months. documented in this encounter Plan of Treatment Upcoming Encounters Date Type Department Care Team (Late st Contact Info) Description 06/11/2024 10:30 AM EDT Follow-Up [facility] Liver Transplant Services [address] [place] [address] Nathan Ortiz MD [address] [place] [address] 06/11/2024 11:00 AM EDT Clinical Support [facility] Liver Transplant Services [address] [place] [address] documented as of this encounter Visit Diagnoses Not on filedocumented in this encounter Care Teams Industrial Psychologist Relationship Specialty Start Date End Date Gulshan Chanel [address] [place] [address] PCP - General 04/17/24 documented as of this encounter
--- OUTSIDE RECORDS SUMMARY | 2024-05-30 11:05 | XMS_ITS | Encounter Summary ---
Author Organization [facility] Address [address] [place] [address] Care Team Providers Care Monumental Stonemason Name Role Phone Gulshan Chanel Primary Care Provider [phone] Reason for Visit * Transplant (Routine) - Authorized Specialty Diagnoses / Procedures Referred By Billy younger Referred To Contact Transplant Diagnoses Liver Transplant Evaluation Erin Allen MD [address] [address] Phone: tel: fax: [facility] [address] [place] [phone] Phone: tel: fax: Referral ID Status Reason Start Date Expiration Date V isits Requested Visits Authorized [id number] Authorized 03/15/2024 03/16/2025 99 99 Encounter Details Date Type Department Care Team (Latest Contact Info) Description 05/11/2024 2:30 PM EST Office Visit [facility] [address] [place] [phone] Preeti Mcdaniel MD [address] [place] [phone] CoElizabeth MD [address] [place] [phone] Special screening examination for infectious diseases (Primary Dx); Encounter for pre-transplant evaluation for liver transplant; Cytomegalovirus infection, unspecified cytomegaloviral infection type (HCC) Social History Tobacco Use Types Packs/Day Years [...] as of this encounter Progress Notes * Elizabeth Gonzalez MD - 05/11/2024 3:36 PM EST Images from the original note were not included. INFECTIOUS DISEASES CONSULT IN [facility] The history was obtained from the patient,Tho Miller and his who was present during the visit, and a review of the medical record. I spent a total of 50 minutes on the date of encounter, which included: ?? Obtaining and/or reviewing separately obtained history ?? Performing a medically appropriate exam and/or evaluation ?? Counseling and educating the patient/family/caregiver ?? 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 At this time, he reports fatigue, loose stools from lactulose and weight gain of 15 pounds. Denies abdominal pain, nausea and vomiting. Recent infections/Infectious Disease History 1) History of pneumonia age 16 2) Reports a couple of UTI - last one 6 months ago 3) No history of sinusitis or bronchitis 4) No history of skin or bone infections 5) No history of shingles 6) Had COVID once 7) No history of SBP Review of Systems: as above; also positive for numbness and tingling of feet, back pain, finger joint pains. All other systems are negative Medical History: No past medical history on file. Surgical History: No past surgical history on file. TB Screening History: No known contact with anyone with TB No history of positive PPD Current Medications: Current Outpatient Medications Medication Sig Dispense Refill albuterol (PROAIR HFA,VENTOLIN HFA) 90 mcg inhaler food supplemt, lactose-reduced (Boost Plus) 0.06 gram- 1.5 kcal/mL liquid Take 1 Bottle by mouth 2 (two) times a day. (Patient not taking: Reported on 05/11/2024) 1000 mL 3 furosemide (LASIX) 40 mg tablet gabapentin (NEURONTIN) 300 mg capsule ibuprofen (MOTRIN) 800 mg tablet lactulose 10 gram/15 mL solution SMARTSI Milliliter(s) By Mouth Twice Daily (Patient taking differently: Take 10 g by mouth 3 times a day.) magnesium oxide 250 mg magnesium tablet Take 250 mg by mouth once a day. [id number] [id number] mg capsule 5 mg. omeprazole (PriLOSEC) 20 mg capsule ondansetron ODT (ZOFRAN ODT) 8 mg disintegrating tablet potassium chloride ER (KLOR-CON) 20 mEq tablet rOPINIRole (REQUIP) 0.5 mg tablet Take 0.5 mg by mouth. spironolactone (ALDACTONE) 100 mg tablet thiamine HCl (VITAMIN B1) 100 mg tablet Take 100 mg by mouth once a day. traMADoL (ULTRAM) 50 mg tablet vitamin B complex tablet extended release Take by mouth. No current facility-administered medications for this visit. Immunizations: Immunization History Administered Date(s) Administered Influenza, Injectable, Quadrivalent, Preservative Free 02/12/2023 Allergies: No Known Allergies Social History: Household: lives with Regular contact with small children? no Animal exposure: dog up to date on vaccines; Employment: Has been on disability since 1992- had previously worked in a [employer] company fo 28 years Outdoor activities: hiking and camping states or countries of residence: Born in [facility], currently lives in [place]. Lived in [place] for 2 months, [place] for 1 years, [place] for 1 year, [place]- all during International travel: [place] age 11 service: yes; tours and years include: [id number] Congregate settings: none Raw foods: none Water source: city water Last drink was one year ago Smoking since the age of 11- had quit but then started smoking 6 cigarettes/day and quit again couple of months ago Started using marijuana a couple of weeks ago- for pain - Purchases from a dispensary Family History: No family history on file. No known history of cardiac, DM or cancers in family Physical Exam: vitals were not taken for this visit. There were no vitals filed for this visit. GENERAL: The patient is in no acute distress SKIN: The skin exam is notable for the absence of rashes. spider angiomata on chest HEENT: Normocephalic and atraumatic. Head and neck exam is notable for the fact that pupils are equal, round, reactive to light. Sclerae are nonicteric. The mucosa shows no evidence of thrush or other lesions. Missing teeth. NECK: The neck is supple . There is no cervical lmphadenopathy. BACK: Without spinal or CVA tenderness LUNGS: Clear to auscultation and percussion without wheezes, rhonchi or rales. CARDIOVASCULAR: Normal S1 and S2. Has regular rate and rhythm without murmurs, rubs or gallops. ABDOMEN: Bowel sounds present. Abdomen is soft and non tender There are no palpable masses, splenomegaly or ascites. EXTREMITIES: Extremities are notable for absence of pedal edema. No calf pain NEURO: Cranial nerves II-XII were intact and otherwise nonfocal. Alert and awake PSYCH: Normal mood and affect Labs Review: Latest Ref Rng & Units 05/11/2024 8:02 AM CBC WBC 3.8 - 10.8 10*3/uL 8.6 Hgb 13.2 - 17.1 g/dL 11.1 Hct 38.5 - 50.0 % 32.7 MCV 80.0 - 100.0 fL 91.9 Plts 140 - 400 10*3/uL 193 Latest Ref Rng & Units 05/11/2024 8:02 AM Basic Metabolic Panel Sodium 135 - 145 mmol/L 127 Potassium 3.5 - 5.3 mmol/L 4.5 Chloride 98 - 107 mmol/L 94 Carbon Dioxide 22 - 32 mmol/L 21 Glucose 65 - 99 mg/dL 105 Creatinine 0.60 - 1.30 mg/dL 1.16 Calcium 8.6 - 10.5 mg/dL 9.1 EGFR >=60 mL/min/1.73m2 74 Latest Ref Rng & Units 05/11/2024 8:02 AM Liver Function Tests Total Protein 6.0 - 8.0 g/dL 7.1 Albumin 3.5 - 5.2 g/dL 3.8 Bilirubin, Total 0.2 - 1.2 mg/dL 1.5 Bilirubin Conjugated <=0.4 mg/dL 0.8 Alkaline Phosphatase 35 - 129 U/L 165 AST 10 - 40 U/L 23 ALT 10 - 40 U/L 11 HIV Ag/Ab, 4Th Gen Date Value Ref Range Status 05/11/2024 NON-REACTIVE NON-REACTIVE Final No results found for: RPRDXWR Hepatitis A Ab, Total Date Value Ref Range Status 05/11/2024 NON-REACTIVE NON-REACTIVE Final Hepatitis B Surface Antigen Date Value Ref Range Status 05/11/2024 NON-REACTIVE NON-REACTIVE Final Hepatitis B Core Ab Total Date Value Ref Range Status 05/11/2024 NON-REACTIVE NON-REACTIVE Final Hepatitis B Surface Ab Immunity, Qn Date Value Ref Range Status 05/11/2024 <5 (L) > OR = 10 mIU/mL Final Varicella Zoster Virus Antibody Date Value Ref Range Status 05/11/2024 2.40 S/CO Final No results found for: RUBELLAANTI , MUMPSVIRUS , MEASLESANTI No results found for: STRONGYLOIDE No components found for: SCHISTOSOMIA No results found for: QUANTIFERON @RESULTINGLABINFO@ No components found for: TOXOPLASMA Lab Results Component Value Date WBC 8.6 05/11/2024 WBC 9.2 04/16/2024 RBC 3.56 (L) 05/11/2024 Neutrophil # 5.60 05/11/2024 Neutrophil % 65.1 05/11/2024 Lymphocyte # 1.60 05/11/2024 Lymphocyte % 19.0 05/11/2024 Monocyte % 12.6 05/11/2024 Monocyte # 1.10 (H) 05/11/2024 Eosinophil % 2.0 05/11/2024 Eosinophil # 0.20 05/11/2024 Basophil % 1.0 05/11/2024 Basophil # 0.10 05/11/2024 Sodium 130 04/16/2024 NA 127 (L) 05/11/2024 Potassium 4.2 04/16/2024 K 4.5 05/11/2024 Chloride 95 04/16/2024 Cl 94 (L) 05/11/2024 CO2 21 (L) 05/11/2024 Carbon Dioxide 17 04/16/2024 BUN 16 05/11/2024 BUN 11 04/16/2024 Creatinine 1.16 05/11/2024 Creatinine 1.09 04/16/2024 Bilirubin, Total 1.5 (H) 05/11/2024 Bilirubin, Total 2.3 04/16/2024 Alkaline Phosphatase 165 (H) 05/11/2024 Alkaline Phosphatase 151 04/16/2024 AST 23 05/11/2024 AST 30 04/16/2024 ALT 11 05/11/2024 ALT 17 04/16/2024 INR 1.1 05/11/2024 INR 1.30 04/16/2024 Imaging: Recent Imaging CT CHEST W CONTRAST Exam End: 05/11/2024 11:03 AM (In process) Assessment/Plan Impression: 1) End stage liver disease secondary to alcohol- associated cirrhosis 2) CMV IgG positive 3) EBV IgG positive 4) Toxoplasma IgG negative 5) Hepatitis A non immune- Recommend Hep A vaccine 6) Hepatitis B non immune- Recommend Hep B vaccine 7) Hepatitis C negative 8) Measles and mumps non immune- MMR vaccine recommended- This is a live vaccine contraindicated when immunosuppressed. Patient has to remain inactive on the list until at least 1 month following last dose of the vaccine 9) ID history of note ( see above for more details) - No significant ID history 10) Prosthetic material None 11) Dental- Poor dentition- had not been going to dentist but has recently scheduled a dental visit 12) immunosuppression- None 13) Skin- No open wounds 14) Allergies - NKDA 15) Vaccines- patient states that he had received influenza, pneumonia and COVID in the last coupleof months -will try and verify At this time, there appear to be no infectious disease contraindications to listing this patient for transplant. Will wait for all the lab work to result, call leave specialist for vaccine history andthen make final vaccine recommendations. Patient and request that I fax list of vaccines to leave specialist Recommendations, and Issues Addressed Today: Vaccines to be scheduled with primary care : Hepatitis A series Hepatitis B series Prevnar 20- will need to verify Tdap Influenza- will need to verify COVID - will need to verify Will make additional recommendation on the basis of lab work Perioperative antimicrobial prophylaxis: Pre-operative Ceftriaxone to be given. CMV: Pre-emptive monitoring with weekly CMV levels for 3 months HSV: acyclovir/valacyclovir for 3 months Pneumocystis: Bactrim for 12 months Anti-fungal: nystatin swish and swallow for 1 months or fluconazole if meets the criteria for its use Latent TB assessment: Patient is relatively low risk for TB. Quantiferon test pending. Epidemiologically based screening: Screening for histoplasma and coccidiodes given travel history during service Pre-transplant infectious disease education provided at this visit. We discussed ways to prevent infection after transplant, especially by handwashing and discussed exposures that could increase the risk of infection and behaviors to minimize this risk. We discussed avoiding exposure to animal enclosures or waste products, or using mask/gloves when exposure is necessary , avoiding animal scratches/bites , avoiding raw or undercooked meat or seafood , washing skin injuries with soap and water, and monitoring for signs of infection , checking well water for bacteria and parasites. Addendum: Lab work from clinic visit Hep A IgG negative Hep B surface antibody < 5 Measles and mumps non immune Quantiferon PND RPR negative HIV negative Hepatitis C negative VZV IgG positive Recommend: Called leave specialist Dr. Chanel on 05/14/24 for vaccine record and possibility of giving recommended vaccines - awaiting callback Recommend: Hep A series Hep B series MMR 1-2 doses if needed Tdap Shingrix Elizabeth Gonzalez MD Spoke with staff at Dr. Chanel's office on 05/16They will send Mr. Miller to get vaccines at [facility]. Requested that I send lab test results. Elizabeth Gonzalez MD documented in this encounter Plan of Treatment Upcoming Encounters Date Type Department Care Team (Late st Contact Info) Description 06/11/2024 10:30 AM EDT Follow-Up [facility] [address] [place] [address] [phone] Nathan Ortiz MD [address] [place] [phone] 06/11/2024 11:00 AM EDT Clinical Support [facility] [address] [place] [phone] Scheduled Orders Name Type Priority Associated Diagnoses Orde r Schedule Coccidioides Antibody, IgG/IgM Lab Routine Special screening examination for infectious diseases Encounter for pre-transplant evaluation for liver transplant Expected: 05/11/2024, Expires: 05/11/2025 documented as of this encounter Results * Due to [place] state law, this organization might not be sharing negative HIV tests. * Histoplasma Antibody Panel, CF & ID (05/11/2024 8:02 AM EST) Histoplasma capsulatum yeast phase Ab <1:8 <1:8 NA 05/17/2024 12:21 PM EST [facility]) Histoplasma capsulatum mycelial phase Ab <1:8 <1:8 NA 05/17/2024 12:21 PM EST [facility]) Comment: Interpretive Criteria: ?<1:8 - Antibody Not Detected > or = 1:8 - Antibody Detected Complement-fixation (CF) titers greater than or equal to 1:8 are generally considered evidence indicative of histoplasmosis. Higher titers increase the probability of infection. However, positive titers are also seen with fungal infections other than histoplasmosis, and confirmation of antibody specificity with immunodiffusion procedures is recommended. Changing titers are useful both in diagnosis and in assessment of treatment efficacy. This test was developed and its analytical performance characteristics have been [facility] by [facility] [place], [place]. It has not been cleared or approved by the FDA. This assay has been validated pursuant to the CLIA regulations and is used for clinical purposes. Histoplasma capsulatum M Antibody Negative Negative 05/17/2024 12:21 PM EST [facility]) Histoplasma capsulatum H Antibody Negative Negative 05/17/2024 12:21 PM EST [facility]) Comment: This immunodiffusion assay is highly specific for Histoplasmosis infection but may have low sensitivity in early infection. Two different immunoprecipitin bands may be detected. The M band develops with acute infection, is often present in chronic infection, and may persist for months to years. The M band may be detected in persons with recent histoplasmin skin testing. The H band, which is usually present with the M band, generally suggests a chronic or severe acute infection. The presence of both the H and M bands is considered conclusive for the diagnosis of histoplasmosis. ? Blood Structure of peripheral vein / Unknown Venipuncture / Unknown 05/11/2024 8:02 AM EST 05/11/2024 8:14 AM EST Narrative [facility] ([facility]) - 05/17/2024 12:21 PM EST [facility] Received Date: us Elizabeth Gonzalez MD LAB BLOOD ORDERABLES Final Res ult [facility] ([place]) [address] [place], [place] , documented in this encounter Visit Diagnoses Diagnosis Special screening examination for infectious diseases- Primary Screening examination for unspecified infectious disease Encounter for pre-transplant evaluation for liver transplant Cytomegalovirus infection, unspecified cytomegaloviral infection type (HCC) documented in this encounter Care Teams Monumental Stonemason Relationship Specialty Start Date End Date Gulshan Chanel [address] [place] [address] PCP - General 04/17/24 documented as of this encounter
--- OUTSIDE RECORDS SUMMARY | 2024-05-30 11:05 | XMS_ITS | Encounter Summary ---
Author Organization [facility] Address [address] [place] [address] Care Team Providers Care Customer Success Advocate Name Role Phone Gulshan Chanel Primary Care Provider [phone] Reason for Referral * Cardiac Diagnostic Testing (Routine) - Closed Specialty Diagnoses / Procedures Referred By Billy t Referred To Contact Diagnoses Encounter for pre-transplant evaluation for liver transplant Procedures Transthoracic echo (TTE) TRANSTHORACIC ECHO (TTE) TRANSTHORACIC ECHO (TTE) LIMITED TRANSTHORACIC ECHO (TTE) LIMITED W/ CONTRAST TRANSTHORACIC ECHO (TTE) LIMITED W/ COLOR TRANSTHORACIC ECHO (TTE) LIMITED W/ DOPPLER AND COLOR TRANSTHORACIC ECHO (TTE) LIMITED W/ DOPPLER, COLOR AND CONTRAST Carolin Pleitez MD [address] [place] [address] Phone: tel: fax: Referral ID Status Reason Start Date Expiration Date Visits Re quested Visits Authorized [id number] Closed 04/17/2024 10/17/2025 1 1 * Cardiac Diagnostic Testing (Routine) - Authorized Specialty Diagnoses / Procedures Referred By Billy younger Referred To Contact Diagnoses Encounter for pre-transplant evaluation for liver transplant Procedures ECG 12 lead Carolin Pleitez MD [address] [place] [address] Phone: tel: fax: Referral ID Status Reason Start Date Expiration Date V isits Requested Visits Authorized [id number] Authorized 04/17/2024 10/17/2025 1 1 * MRI/CAT/PET Scan (Routine) - Closed Specialty Diagnoses / Procedures Referred By Billy younger Referred To Contact Diagnoses Encounter for pre-transplant evaluation for liver transplant Procedures CT 3 Phase Liver Mass With Pelvis Carolin Pleitez MD [address] [place] [address] Phone: tel: fax: Referral ID Status Reason Start Date Expiration Date Visits Re quested Visits Authorized [id number] Closed 04/17/2024 10/17/2025 1 1 * MRI/CAT/PET Scan (Routine) - Closed Specialty Diagnoses / Procedures Referred By Billy younger Referred To Contact Diagnoses Encounter for pre-transplant evaluation for liver transplant Procedures CT CHEST W CONTRAST Carolin Pleitez MD [address] [place] [id number] Phone: tel: fax: Referral ID Status Reason Start Date Expiration Date Visits Re quested Visits Authorized [id number] Closed 04/17/2024 10/17/2025 1 1 Reason for Visit * Transplant (Routine) - Authorized Specialty Diagnoses / Procedures Referred By Billy younger Referred To Contact Transplant Diagnoses Liver Transplant Evaluation Erin Allen MD [address] [facility] [address] [place] [address] Phone: tel: fax: [facility] [address] [place] [address] Phone: tel: fax: Referral ID Status Reason Start Date Expiration Date V isits Requested Visits Authorized [id number] Authorized 03/15/2024 03/16/2025 99 99 Encounter Details Date Type Department Care Team (Late st Contact Info) Description 04/17/2024 12:00 PM EST Evaluation [facility] [address] [place] [address] Angela Weaver RN Encounter for pre-transplant evaluation for liver transplant [...] as of this encounter Progress Notes * Angela Weaver RN - 04/17/2024 12:00 PM EST Mr./Mrs./Ms. Tho Miller and family/significant other(s) presented for pre-transplant education, supported by written and audiovisual materials. Patient viewed the [facility] Liver Transplant Education Video and had the opportunity to review the material and to ask questions. All elements of the Transplant Recipient Edu cation form were reviewed. An education packet was provided to the patient which includes the following information: -UNOS booklet What Every Patient Needs to Know -UNOS brochures Liver Allocation and Frequently Asked Questions about Multiple Listing and Waiting Time Transfer -[facility] transplant outcomes from [facility] released on 03/27/2024 -[facility] Liver Transplant Initial Consent for Evaluation -Information for Transplant Patients: Viral Infections and Increased Risk Donors -Business card with contact information for irb compliance coordinator and other cleaning team member contact information. -Authorization for verbal communications -Authorization for the disclosure of protected health information Diagnostic tests obtained/ordered during this visit: -ABO typing -Serologies (verbal consent obtained for HIV testing) -3Phase CT/Chest CT -Cardiac Workup -Other: Assessment: Patient verbalized good understanding of the content presented. Plan: 1. Initiate transplant recipient evaluation. 2. Review appointments for upcoming imaging, labs, and multidisciplinary transplant clinic. 3. Additional test and/or consults to be determined by multidisciplinary team. documented in this encounter Miscellaneous Notes * Addendum Note - Carolin Pleitez MD - 05/16/2024 12:24 PM ESTAddended by: CAROLIN PLEITEZ on: 05/16/2024 12:24 PM Modules accepted: Orders documented in this encounter Plan of Treatment Upcoming Encounters Date Type Department Care Team (Late st Contact Info) Description 06/11/2024 10:30 AM EDT Follow-Up [facility] [address] [place] [address] Nathan Ortiz MD [address] [place] [address] 06/11/2024 11:00 AM EDT Clinical Support [facility] [address] [place] [id number] Scheduled Orders Name Type Priority Associated Diagnoses Orde r Schedule ECG 12 lead ECG Routine Encounter for pre-transplant evaluation for liver transplant 1 Occurrences starting 04/17/2024 until 04/17/2025 documented as of this encounter Procedures * Due to [place] [employer] law, this organization might not be sharing negative HIV tests. Procedure Name Priority Date/Time Associated Diagnosis Comments CT 3 PHASE LIVER MASS WITH PELVIS Routine 05/11/2024 11:03 AM EST Encounter for pre-transplant evaluation for liver transplant CT CHEST W CONTRAST Routine 05/11/2024 1 1:03 AM EST Encounter for pre-transplant evaluation for liver transplant TRANSTHORACIC ECHO (TTE) COMPLETE Routine 05/11/2024 9:00 AM EST Encounter for pre-transplant evaluation for liver transplant documented in this encounter Results * Due to [place] [employer] law, this organization might not be sharing negative HIV tests. * CT 3 Phase Liver Mass With Pelvis (05/11/2024 11:03 AM EST) Anatomical Region Laterality Modality Liver Computed Tomogra phy 05/11/2024 12:0 6 PM EST Impressions 05/14/2024 7:59 PM EST 1. ??No focal liver lesions. 2. ??Gross ascites splenic enlargement compatible with decompensated cirrhosis. ??Enhancement of the peritoneum suggests underlying peritonitis. ??SBP not excluded. 3. ??Cholelithiasis and choledocholithiasis. ??Punctate calculus seen image 393 series 4 within the distal CBD. ??Can consider ERCP if there is elevated alkaline phosphatase. ??The CBD calculus is best seen on the thin coronal images series 5 image 74. 4. ??Conventional hepatic arterial anatomy. ??Attenuated intrahepatic portal veins and small liver. 5. ??Patent hepatic veins. If this radiology report contains a blank impression section, it is an incomplete radiology report. ??Please contact the interpreting radiologist or applicable radiology division as soon as possible to obtain the completed interpretation. ? Workstation ID: [id number] Up-to-date CT equipment and radiation dose reduction techniques were employed. CTDIvol: 3.0 - 14.6 mGy. DLP: 1699 mGy-cm. ??The following accession numbers are related to this dose report [id number]: [id number] [facility] 05/14/2024 7:59 PM EST EXAMINATION: CT 3 PHASE LIVER MASS WITH PELVIS WITH CONTRAST INDICATION: Surveillance for carcinoma. TECHNIQUE: Images of the abdomen were obtained in the arterial, portal venous, and delayed phases following intravenous contrast administration. Portal venous phase images also include the pelvis. Coronal and sagittal reformats were generated. COMPARISON: Outside MRI 02/13/2023. ?? FINDINGS: LOWER THORAX: No effusions or nodules. HEPATOBILIARY: Nodular contour of the liver. No focal liver lesions are identified. Attenuation of the anterior and posterior branches of the portal vein noted image 215 series 8. Intraluminal small stones seen within the distended gallbladder. No bile duct dilatation. ??Choledocholithiasis image 73 series 5. SPLEEN: 15.7 cm enlarged spleen. PANCREAS: Normal appearance of the pancreas. ??No duct dilatation. ??Pancreas divisum present with the dorsal duct entering the minor papilla. ??The ventral duct joins the CBD. ADRENAL GLANDS: No adrenal nodules. KIDNEYS/URETERS: Symmetric enhancement of the kidneys without hydronephrosis or hydroureter. GI TRACT: Bowel loops are not thick-walled or dilated. ??There is mild enhancement of the ascites within the right paracolic gutter. PERITONEUM/RETROPERITONEUM: Moderate ascites. LYMPH NODES: No adenopathy. VESSELS: Left gastric artery branches early from the celiac axis. ??Proper hepatic artery demonstrates normal caliber. ??Superior mesenteric artery demonstrates normal caliber. ??No aneurysm or dissection. PELVIC ORGANS/BLADDER: Unremarkable urinary bladder. BONES AND SOFT TISSUES: Degenerative disc disease L4-5. ??Umbilical hernia containing fat and fluid within the hernia sac related to the ascites on image 107 series 10. Resulting Agency Comment [id number] Procedure Note Christen Aviles MD - 05/14/2024 EXAMINATION: CT 3 PHASE LIVER MASS WITH PELVIS WITH CONTRAST INDICATION: Surveillance for carcinoma. TECHNIQUE: Images of the abdomen were obtained in the arterial, portalvenous, and delayed phases following intravenous contrast administration.Portal venous phase images also include the pelvis. Coronal and sagittalreformats were generated. COMPARISON: Outside MRI 02/13/2023. FINDINGS: LOWER THORAX: No effusions or nodules. HEPATOBILIARY: Nodular contour of the liver. No focal liver lesions areidentified. Attenuation of the anterior and posterior branches of the portal veinnoted image 215 series 8. Intraluminal small stones seen within thedistended gallbladder. No bile duct dilatation. Choledocholithiasis image73 series 5. SPLEEN: 15.7 cm enlarged spleen. PANCREAS: Normal appearance of the pancreas. No duct dilatation.Pancreas divisum present with the dorsal duct entering the minor papilla.The ventral duct joins the CBD. ADRENAL GLANDS: No adrenal nodules. KIDNEYS/URETERS: Symmetric enhancement of the kidneys withouthydronephrosis or hydroureter. GI TRACT: Bowel loops are not thick-walled or dilated. There is mildenhancement of the ascites within the right paracolic gutter. PERITONEUM/RETROPERITONEUM: Moderate ascites. LYMPH NODES: No adenopathy. VESSELS: Left gastric artery branches early from the celiac axis. Properhepatic artery demonstrates normal caliber. Superior mesenteric arterydemonstrates normal caliber. No aneurysm or dissection. PELVIC ORGANS/BLADDER: Unremarkable urinary bladder. BONES AND SOFT TISSUES: Degenerative disc disease L4-5. Umbilical herniacontaining fat and fluid within the hernia sac related to the ascites onimage 107 series 10. IMPRESSION: 1. No focal liver lesions. 2. Gross ascites splenic enlargement compatible with decompensatedcirrhosis. Enhancement of the peritoneum suggests underlying peritonitis.SBP not excluded. 3. Cholelithiasis and choledocholithiasis. Punctate calculus seen bilhy625 series 4 within the distal CBD. Can consider ERCP if there iselevated alkaline phosphatase. The CBD calculus is best seen on the thincoronal images series 5 image 74. 4. Conventional hepatic arterial anatomy. Attenuated intrahepatic portalveins and small liver. 5. Patent hepatic veins. If this radiology report contains a blank impression section, it is anincomplete radiology report. Please contact the interpreting radiologistor applicable radiology division as soon as possible to obtain thecompleted interpretation. Workstation ID: [id number] Up-to-date CT equipment and radiation dose reduction techniques wereemployed. CTDIvol: 3.0 - 14.6 mGy. DLP: 1699 mGy-cm. The followingaccession numbers are related to this dose report [id number]: [id number] Carolin Pleitez MD IMG CT PROCEDURES Final Result * CT CHEST W CONTRAST (05/11/2024 11:03 AM EST) Anatomical Region Laterality Modality Body Computed Tomogra phy 05/11/2024 12:0 6 PM EST Impressions 05/17/2024 4:11 PM EST Impression: Small clustered tree-in-bud nodules as well as a 2 mm right upper lobe nodule are suggestive of infectious or postinfectious lesions, rather than of a neoplasm. ??No morphologically suspicious pulmonary nodules. ??Mild upper lobe predominant pulmonary emphysema. ??No fibrotic lung disease. ??No pleural effusions. ??No adenopathy. If this radiology report contains a blank impression section, it is an incomplete radiology report. ??Please contact the interpreting radiologist or applicable radiology division as soon as possible to obtain the completed interpretation. ? Workstation ID: [id number] Up-to-date CT equipment and radiation dose reduction techniques were employed. CTDIvol: 3.0 - 14.6 mGy. DLP: 1699 mGy-cm. ??The following accession numbers are related to this dose report [id number]: [id number] Narrative 05/17/2024 4:11 PM EST Indication: ??pre liver transplant evaluation Z01.818 - I10 - Encounter for other preprocedural examination, Comparison: No comparison. Dose: For radiation dose control at least one of the following techniques was used in this procedure (1) Automated exposure control (2) Adjustment of the mA and/or kV according to patient size (3) Use of iterative reconstruction technique. Findings: Neck and thoracic inlet: No abnormality. Mediastinum and large vessels: ? Aorta Minimal aortic wall calcifications. Pulmonary arteries Unremarkable shape and diameter. Esophagus Normal esophagus. Other mediastinal findings No other abnormal mediastinal findings are present. Heart: Cardiac size Heart size is normal. Coronary arteries Moderate coronary calcifications. Valves No valvular calcifications. Pericardium No abnormality. Lymph nodes: Supraclavicular and axillary Normal sized lymph nodes, no enlarged lymph nodes. Mediastinal Normal sized lymph nodes, no enlarged lymph nodes. Hilar Normal sized lymph nodes, no enlarged lymph nodes. Others None. Lung parenchyma: Upper lobe predominant paraseptal and centrilobular pulmonary emphysema. Minimal clustered tree-in-bud nodularity in the right upper lobe (6, 60). 2 mm right upper lobe nodule (6, 57 No fibrotic lung disease. No pleural effusions. The airways are patent Airways: See above. Pleura: See above. Upper abdomen: Calcified gallstones. Moderate perihepatic and perisplenic ascites. Chest wall and bones: Mild degenerative vertebral disease. Bilateral gynecomastia. Resulting Agency Comment [id number] Procedure Note Sidney Delatorre MD PhD - 05/17/2024 Indication: pre liver transplant evaluation Z01.818 - I10 - Encounter forother preprocedural examination, Comparison: No comparison. Dose: For radiation dose control at least one of the following techniqueswas used in this procedure (1) Automated exposure control (2) Adjustmentof the mA and/or kV according to patient size (3) Use of iterativereconstruction technique. Findings: Neck and thoracic inlet: No abnormality. Mediastinum and large vessels: Aorta Minimal aortic wall calcifications. Pulmonary arteries Unremarkable shape and diameter. Esophagus Normal esophagus. Other mediastinal findings No other abnormal mediastinal findings are present. Heart: Cardiac size Heart size is normal. Coronary arteries Moderate coronary calcifications. Valves No valvular calcifications. Pericardium No abnormality. Lymph nodes: Supraclavicular and axillary Normal sized lymph nodes, no enlarged lymph nodes. Mediastinal Normal sized lymph nodes, no enlarged lymph nodes. Hilar Normal sized lymph nodes, no enlarged lymph nodes. Others None. Lung parenchyma: Upper lobe predominant paraseptal and centrilobular pulmonary emphysema. Minimal clustered tree-in-bud nodularity in the right upper lobe (6,60). 2 mm right upper lobe nodule (6, 57 No fibrotic lung disease. No pleural effusions. The airways are patent Airways: See above. Pleura: See above. Upper abdomen: Calcified gallstones. Moderate perihepatic and perisplenic ascites. Chest wall and bones: Mild degenerative vertebral disease. Bilateral gynecomastia. IMPRESSION: Impression: Small clustered tree-in-bud nodules as well as a 2 mm right upper lobenodule are suggestive of infectious or postinfectious lesions, rather thanof a neoplasm. No morphologically suspicious pulmonary nodules. Mildupper lobe predominant pulmonary emphysema. No fibrotic lung disease. Nopleural effusions. No adenopathy. If this radiology report contains a blank impression section, it is anincomplete radiology report. Please contact the interpreting radiologistor applicable radiology division as soon as possible to obtain thecompleted interpretation. Workstation ID: [id number] Up-to-date CT equipment and radiation dose reduction techniques wereemployed. CTDIvol: 3.0 - 14.6 mGy. DLP: 1699 mGy-cm. The followingaccession numbers are related to this dose report [id number]: [id number] Carolin Pleitez MD IM CT PROCEDURES Final Result * TRANSTHORACIC ECHO (TTE) COMPLETE (05/11/2024 9:00 AM EST) BSA 1.84 m2 LVIDD 6.1 cm LVIDS 4.0 cm IVS 0.6 cm LVOT diameter 2.3 cm LVOT area 4.15 cm2 Relative Wall Thickness 0.19 PW 0.6 cm LV Mass Index 70 g/m2 MV Peak E Moncho 0.50 m/s MV avg E/e' 3.70 MV Peak A Moncho 0.43 m/s E/A ratio 1.20 Lateral e' 0.17 m/s E wave deceleration time 286.2 msec Septal e' 0.10 m/s MV E/E' Tissue Velocity Lateral 3.01 LA Volume Index 41 mL/m2 MV E/e' septal 4.80 LA volume 70 mL LVOT peak moncho 0.86 m/s LVOT stroke volume 82 cm3 LV stroke vol index 44.3 mL/m2 RV diastolic basal diam 4.0 cm TAPSE 2.1 cm LA size 3.7 cm AV peak gradient 3 mmHg Ao peak moncho 0.8 m/s LVOT peak VTI 19.51 cm AV area pk moncho 4.3 cm2 AV Doppler moncho index pk moncho 1.02 PV pk moncho 1.3 cm/s PV peak gradient 7.0 mmHg Ascending aorta 3.1 cm Ao-asc Z score 0.04 LV ED Post Wall 0.60 LV ES Dimension 4.00 LV ED Dimension 6.10 Aortic Valve Diam 2.3 cm EF 2D 64 % Global longitudinal strain 22.6 Sinus 3.8 cm Aortic Root Z-score 1.36 Dummy BSA 1.85 RIGHT ATRIAL PRESSURE 3 mmHg [facility] RV TISSUE DOPPLER S' 12.0 cm/s LV Systolic Volume 56 mL LV Systolic Volume Index 30 mL/m2 LV Diastolic Volume 154 mL LV Diastolic Volume Index 84 mL/m2 Anatomical Region Laterality Modality Heart Echocardiography Narrative 05/11/2024 11:25 AM EST ?Left ventricle is mildly dilated. Normal left ventricular systolic function with estimated LVEF 64%. ?Left atrium is mildly dilated. ?Normal RV size and systolic function. ?No significant valvular disease identified. Left Ventricle Left ventricle is mildly dilated. Normal left ventricular wall thickness. Left ventricular mass index is normal. Normal left ventricular wall motion. Normal left ventricular systolic function with estimated LVEF 64% by Ron? s biplane method of disc. Left ventricular global longitudinal strain is normal. Normal left ventricular diastolic function. Right Ventricle Right ventricle size is normal. Normal right ventricular systolic function. TAPSE is normal (>=1.7 cm). Tissue Doppler peak systolic velocity is normal (>9.5 cm/s). Left Atrium Left atrium is mildly dilated. Right Atrium Right atrium is normal in size. IVC/SVC IVC diameter is less than or equal to 21 mm and decreases greater than 50% during inspiration; therefore the estimated right atrial pressure is normal (~3 mmHg). Mitral Valve Mitral valve structure is normal. Trace mitral regurgitation. No mitral stenosis. Tricuspid Valve Tricuspid valve structure is normal. Trace tricuspid regurgitation. No tricuspid stenosis. Aortic Valve There is a trileaflet aortic valve. No aortic regurgitation. No aortic stenosis. Pulmonic Valve Pulmonic valve not well visualized. No pulmonic regurgitation. No pulmonic stenosis. Ascending Aorta The sinuses of Valsalva and ascending aorta are normal. Pericardium There is prominent pericardial fat. No pericardial effusion. Pulmonary Artery TR jet was inadequate to estimate pulmonary artery pressure. Atrial Septum No interatrial shunt detected by color flow Doppler. Ventricular Septum Normal septal motion. Study Details A complete echo was performed using 2D imaging, color flow Doppler and complete spectral Doppler. Myocardial deformation imaging was performed using [employer]. During the study the apical, parasternal, subcostal and suprasternal view was captured. Overall the study quality was adequate. Prior Study No prior study available for comparison. STRESS ECHO OVERALL FINDINGS Normal RV size and systolic function. No significant valvular disease identified. Carolin Pleitez MD CV ECHO PROCEDURES Final Result documented in this encounter Visit Diagnoses Diagnosis Encounter for pre-transplant evaluation for liver transplant- Primary documented in this encounter Care Teams Customer Success Advocate Relationship Specialty Start Date End Date Christianmendez Gulshan García [address] [place] [address] PCP - General 04/17/24 documented as of this encounter
--- OUTSIDE RECORDS SUMMARY | 2024-05-30 11:05 | XMS_ITS | Encounter Summary ---
Author Organization [facility] Address [address] [place] [address] Care Team Providers Care Plasterer Rough Name Role Phone Gulshan Chanel Primary Care Provider Encounter Details Date Type Department Care Team (Late st Contact Info) Description 05/09/2024 Telephone [facility] Transplant Department [address] [place] [address] Angela Weaver RN Social History Tobacco Use [...] Telephone Encounter - Angela Weaver RN - 05/09/2024 4:41 PM EST Pt to get labs on Tuesday of his appt documented in this encounter Plan of Treatment Upcoming Encounters Date Type Department Care Team (Late st Contact Info) Description 06/11/2024 10:30 AM EDT Follow-Up [facility] [address] [place] [address] Nathan Ortiz MD [address] [place] [address] 06/11/2024 11:00 AM EDT Clinical Support [facility] [address] [place] [address] documented as of this encounter Results * Due to [place] state law, this organization might not be sharing negative HIV tests. * Comprehensive Drug Panel, Urine (05/11/2024 8:11 AM EST) Pathologist [facility] Comprehensive Drug Screen Urine DRUGS DETECTED 05/11/2024 2:55 PM EST [facility] Comment: NICOTINE GABAPENTIN COTININE CAFFEINE TRAMADOL AND METABOLITE Urine Voided urine specimen / Unknown Non-Blood Collection / Unknown 05/11/2024 8:11 AM EST 05/11/2024 8:16 AM EST [facility] - 05/11/2024 2:55 PM EST [facility] Received Date:[id number] Yunior Pérez MD LAB URINE ORDERABLES Fin al Result [facility] [address] [facility] [address]rd Floor, [place] [address], [facility] [address] [facility] [address], [place] [address], * PSA (05/11/2024 8:02 AM EST) Pathologist [facility] PSA 0.04 <=4.00 ng/mL 05/11/2024 8:53 AM EST [facility] Comment: The total PSA value from this assay system is standardized against the WHO standard. ??The test result will be slightly lower (< 3 %) when compared to the equimolar-standardized total PSA(Bakari Paco). ??Comparison of Serial PSA results should be interpreted with this fact in mind. ??PSA level, regardless of value should not be interpreted as absolute evidence of the presence or absence of disease. This test was performed using Carlin chemiluminescent method. ??Values obtained by different assay methods cannot be used interchangeably. Blood Structure of peripheral vein / Unknown Venipuncture / Unknown 05/11/2024 8:02 AM EST 05/11/2024 8:15 AM EST Yunior Pérez MD LAB BLOOD ORDERABLES Fin al Result Performing Organization Address City/[facility] Co de Phone Number [facility] [address] [place] [address], * (ABNORMAL) Zinc (05/11/2024 8:02 AM EST) Zinc 45(L) 60 - 130 mcg/dL 05/15/2024 11:53 AM EST KIMBERLY LOYOLAERI (LAURA) Comment: This test was developed and its analytical performance characteristics have been determined by [facility] [place], [place]. It has not been cleared or approved by the U.S. Food and Drug Administration. This assay has been validated pursuant to the CLIA regulations and is used for clinical purposes. Blood Structure of peripheral vein / Unknown Venipuncture / Unknown 05/11/2024 8:02 AM EST 05/11/2024 8:15 AM EST Narrative KIMBER[facility] LITTLEJOHN (LAURA) - 05/15/2024 11:53 AM EST [facility] Received Date: Yunior Pérez MD LAB BLOOD ORDERABLES Fin al Result Performing Organization Address [facility] de Phone Number KIMBERLY LITTLEJOHN (SANCHEZ) [address] [place], [place] , [place] * (ABNORMAL) Vitamin D, 25-Hydroxy, Total, Immunoassay (05/11/2024 8:02 AM EST) Calcidiol+ercalc idiol 13(L) 30 - 100 ng/mL 05/11/2024 11:52 AM EST [facility] Comment: Vitamin D Status ? 25-OH Vitamin D: Deficiency: ?<20 ng/mL Insufficiency: ? 20 - 29 ng/mL Optimal: ? > or = 30 ng/mL For 25-OH Vitamin D testing on patients on D2-supplementation and patients for whom quantitation of D2 and D3 fractions is required, the QuestAssureD(TM) 25-OH VIT D, (D2,D3), LC/MS/MS is recommended: order code [id number] (patients >2yrs). See Note 1 Note 1 For additional information, please refer to http://education.[employer]/faq/NVJ749 (This link is being provided for informational/ educational purposes only.) Blood Structure of peripheral vein / Unknown Venipuncture / Unknown 05/11/2024 8:02 AM EST 05/11/2024 8:15 AM EST Narrative KIMBERLY WAUSAU - 05/11/2024 11:52 AM EST [facility] Received Date: Yunior Pérez MD LAB BLOOD ORDERABLES Fin al Result [facility] [address] [facility] [address]rd [address], [place] [address], [facility] [address] [facility] [address], [place] [address], * (ABNORMAL) Vitamin A (Retinol) (05/11/2024 8:02 AM EST) [facility] Vitamin A (Retinol) 15(L) 38 - 98 mcg/dL 05/14/2024 11:11 PM EST KIMBERLY POND) Comment: Vitamin supplementation within 24 hours prior to blood draw may affect the accuracy of the results. This test was developed and its analytical performance characteristics have been determined by [facility] [place], [place]. It has not been cleared or approved by the U.S. Food and Drug Administration. This assay has been validated pursuant to the CLIA regulations and is used for clinical purposes. Blood Structure of peripheral vein / Unknown Venipuncture / Unknown 05/11/2024 8:02 AM EST 05/11/2024 8:10 AM EST Eriberto LITTLEJOHN (LAURA) - 05/14/2024 11:11 PM EST [facility] Received Date:[id number] us Yunior Pérez MD LAB BLOOD ORDERABLES Fin al Result KIMBERLY POND) [address] [place] [address], [place] * Varicella Zoster Antibody, IgG (05/11/2024 8:02 AM EST) Pathologist [facility] Varicella Zoster Virus Antibody 2.40 S/CO 05/11/2024 5:07 PM EST [facility] Comment: ?Signal to Cut-off ? S/CO ?Interpretation ? --------- ?<1.00 ?Negative - Antibody not detected ?> or = 1.00 ?Positive - Antibody detected ?A positive result indicates that the patient ?has antibody to VZV but does not differentiate ?between an active or past infection. ?The clinical diagnosis must be interpreted in ?conjunction with the clinical signs and symptoms of ?the patient. This assay reliably measures immunity ?due to previous infection but may not be ?sensitive enough to detect antibodies induced by ?vaccination. Thus, a negative result in a vaccinated ?individual does not necessarily indicate ?susceptibility to VZV infection. A more sensitive ?test for vaccination-induced immunity is Varicella ?Zoster Virus Antibody Immunity Screen, ACIF. Blood Structure of peripheral vein / Unknown Venipuncture / Unknown 05/11/2024 8:02 AM EST 05/11/2024 8:13 AM EST Narrative KIMBERLY IZQUIERDO - 05/11/2024 5:07 PM EST [facility] Received Date:[id number] us Yunior Pérez MD LAB BLOOD ORDERABLES Fin al Result [facility]IM[facility] IZQUIERDO [address] [facility] [address], [place] [address], [place] [phone] [facility] [address] [place] [address] [place] [address], [place] [address], [place] [phone] * Type and Screen (05/11/2024 8:02 AM EST) ABO Blood Type B 05/11/2024 9:09 AM EST [facility] RH Type Negative 05/11/2024 9:09 AM EST [facility] Expiration Date/Time 2024-05-14 23:59 05/11/2024 9:09 AM EST [facility] Antibody Screen Negative 05/11/2024 9:09 AM EST [facility] Blood Structure of peripheral vein / Unknown Venipuncture / Unknown 05/11/2024 8:02 AM EST 05/11/2024 8:06 AM EST Yunior Pérez MD LAB BLOOD BANK TEST HOLLY STORM Edited Result - Final [facility] [address] [place] [address], * TSH Reflex Free T4 (05/11/2024 8:02 AM EST) TSH 2.130 0.280 - 3.890 uIU/mL 05/11/2024 8:57 AM EST [facility] Blood Structure of peripheral vein / Unknown Venipuncture / Unknown 05/11/2024 8:02 AM EST 05/11/2024 8:15 AM EST us Yunior Pérez MD LAB BLOOD ORDERABLES Fin al Result [facility] [address] [place] [address], * Toxoplasma gondii Antibody, IgG (05/11/2024 8:02 AM EST) Toxoplasma Ab IgG <7.20 IU/mL 05/11/2024 9:20 PM EST [facility] Comment: ? IU/mL ?Interpretation ? ------ ? <7.20 ?Negative ? 7.20-8.79 ?Equivocal ? >8.79 ?Positive Blood Structure of peripheral vein / Unknown Venipuncture / Unknown 05/11/2024 8:02 AM EST 05/11/2024 8:13 AM EST Narrative [facility] - 05/11/2024 9:20 PM EST [facility] Received Date: Yunior Pérez MD LAB BLOOD ORDERABLES Fin al Result KIMBER[facility] WAUSAU [address] [facility] [address], [place] [address], [facility] [address] [facility] [address], [place] [address], * Smooth Muscle Antibody Screen w/Reflex to Titer (05/11/2024 8:02 AM EST) Smooth Muscle AB Screen NEGATIVE NEGATIVE 05/14/2024 3:03 PM EST [facility] Comment: The specimen was negative for cytoplasmic antibodies, however additional staining was observed suggesting the presence of Antinuclear Antibodies. Consider requesting order code 249, SHELLY Screen, IFA with Reflex to Titer and Pattern, or order code [id number], SHELLY Screen, IFA w/reflex Titer/Pattern, and Reflex to Multiplex 11 Ab Iron, if clinically indicated. Blood Structure of peripheral vein / Unknown Venipuncture / Unknown 05/11/2024 8:02 AM EST 05/11/2024 8:15 AM EST Narrative KIMBERLY WAUSAU - 05/14/2024 3:03 PM EST [facility] Received Date:[id number] us Yunior Pérez MD LAB BLOOD ORDERABLES Fin al Result [facility] [address], [place] [address], [place] [phone] [facility] [address], [place] [address], [place] [phone] * RPR (Diagnosis) w/Reflex to Titer & TPPA Confirm (05/11/2024 8:02 AM EST) RPR W/Refl Titer NON-REACT COLLINS NON-REACT COLLINS 05/11/2024 1:09 PM EST [facility] Blood Structure of peripheral vein / Unknown Venipuncture / Unknown 05/11/2024 8:02 AM EST 05/11/2024 8:15 AM EST Narrative Slyce WAUSAU - 05/11/2024 1:09 PM EST [facility] Received Date:[id number] us Yunior Pérez MD LAB BLOOD ORDERABLES Fin al Result Performing Organization Address City/[facility]/ZIP Co de Phone Number [facility] [address] [facility] [address] [facility], [place] [address], [place] [phone] [facility] [address], [place] [address], * QuantiFERON-TB Gold Plus, 1 Tube (05/11/2024 8:02 AM EST) QuantiFERON-TB Gold Plus NEGATIVE NEGATIVE 05/14/2024 2:04 PM EST [facility] Comment: Negative test result. M. tuberculosis complex infection unlikely. NIL 0.01 IU/mL 05/14/2024 2:04 PM EST [facility] Mitogen-NIL 9.32 IU/mL 05/14/2024 2:04 PM EST [facility] TB1-NIL 0.00 IU/mL 05/14/2024 2:04 PM EST [facility] TB2-NIL 0.01 IU/mL 05/14/2024 2:04 PM EST [facility] Comment: The Nil tube value reflects the background interferon gamma immune response of the patient's blood sample. This value has been subtracted from the patient's displayed TB and Mitogen results. Lower than expected results with the Mitogen tube prevent false-negative Quantiferon readings by detecting a patient with a potential immune suppressive condition and/or suboptimal pre-analytical specimen handling. The TB1 Antigen tube is coated with the M. tuberculosis-specific antigens designed to elicit responses from TB antigen primed CD4+ helper T-lymphocytes. The TB2 Antigen tube is coated with the M. tuberculosis-specific antigens designed to elicit responses from TB antigen primed CD4+ helper and CD8+ cytotoxic T-lymphocytes. For additional information, please refer to https://education.RABBL/faq/GJV947 (This link is being provided for informational/ educational purposes only.) Blood Structure of peripheral vein / Unknown Venipuncture / Unknown 05/11/2024 8:02 AM EST 05/11/2024 8:10 AM EST Narrative [facility] - 05/14/2024 2:04 PM EST [facility] Received Date: us Yunior Pérez MD LAB BLOOD ORDERABLES Fin al Result KIMBERLY WAUSAU [address] [facility] [address], [place] [address], [facility] [address] [facility] [address], [place] [address], * (ABNORMAL) PTT (05/11/2024 8:02 AM EST) [facility] aPTT 33.2(H) 23.0 - 32.0 Seconds 05/11/2024 9:04 AM EST [facility] Comment: Current PTT reagent is not sensitive to detect all Lupus Anticoagulant (LA) Inhibitor Cases. ?? If a LA is suspected, please order a Lupus Anticoagulation w/ Reflex Test which is performed at [facility] in [place], [place]. Blood Structure of peripheral vein / Unknown Venipuncture / Unknown 05/11/2024 8:02 AM EST 05/11/2024 8:13 AM EST Yunior Préez MD LAB BLOOD ORDERABLES Fin al Result [facility] LAB[facility]ORY [address] [place] [address], * Protime-INR (05/11/2024 8:02 AM EST) PT 11.9 9.6 - 12.4 Seconds 05/11/2024 9:04 AM EST [facility] INR 1.1 0.9 - 1.1 05/11/2024 9:04 AM EST [facility] Comment:The optimal therapeu tic INR range for patients treated with Vitamin K antagonists (VKAS, e.g., Warfarin) is 2.0 to 3.5. Discuss the desired range with your doctor/care team. Blood Structure of peripheral vein / Unknown Venipuncture / Unknown 05/11/2024 8:02 AM EST 05/11/2024 8:13 AM EST Yunior Pérez MD LAB BLOOD ORDERABLES Fin al Result [facility] LAB[facility]ORY [address] [place] [address], * Protein Electrophoresis w/Reflex to Immunofixation, Serum (05/11/2024 8:02 AM EST) Protein, Total 6.9 6.1 - 8.1 g/dL 05/11/2024 10:39 PM EST [facility] Albumin 3.8 3.8 - 4.8 g/dL 05/11/2024 10:39 PM EST [facility] Alpha 1 Globulin 0.3 0.2 - 0.3 g/dL 05/11/2024 10:39 PM EST [facility] Alpha 2 Globulin 0.6 0.5 - 0.9 g/dL 05/11/2024 10:39 PM EST [facility] Beta 1 Globulin 0.5 0.4 - 0.6 g/dL 05/11/2024 10:39 PM EST [facility] Beta 2 Globulin 0.3 0.2 - 0.5 g/dL 05/11/2024 10:39 PM EST [facility] Gamma Globulin 1.4 0.8 - 1.7 g/dL 05/11/2024 10:39 PM EST [facility] Interpretation See Comments 05/11/2024 10:39 PM EST [facility] Comment: Normal Serum Protein Electrophoresis Pattern. No abnormal protein bands (M-protein) detected. Blood Structure of peripheral vein / Unknown Venipuncture / Unknown 05/11/2024 8:02 AM EST 05/11/2024 8:14 AM EST [facility] - 05/11/2024 10:39 PM EST [facility] Received Date: Yunior Pérez MD LAB BLOOD ORDERABLES Fin al Result [facility] [address] [facility] [address], [place] [address], [facility] [address] [facility] [address], [place] [address], * Phosphorus (05/11/2024 8:02 AM EST) Phosphorus 3.2 2.5 - 4.5 mg/dL 05/11/2024 8:57 AM EST [facility] Blood Structure of peripheral vein / Unknown Venipuncture / Unknown 05/11/2024 8:02 AM EST 05/11/2024 8:15 AM EST Yunior Pérez MD LAB BLOOD ORDERABLES Fin al Result [facility] [address] [place] [address], [place] * Phosphatidylethanol (PEth) (05/11/2024 8:02 AM EST) PEth 16:0/18:1 (POPEth) 22 ng/mL 05/12/2024 5:33 PM EST [facility] Comment: PEth 16:0/18:1 (POPEth) Less than 10 ng/mL............Not detected Less than 20 ng/mL............Abstinence or light alcohol consumption 20 - 200 ng/mL................Moderate alcohol consumption Greater than 200 ng/mL........Heavy alcohol consumption or chronic alcohol use (Reference: Belem Peñaloza and Slim Mckinney 2018 J. Forensic Sci) PEth 16:0/18:2 (PLPEth) 32 ng/mL 05/12/2024 5:33 PM EST [facility] Comment:Reference ranges are not well established. EER Peth See Note 05/12/2024 5:33 PM EST [facility] Comment: Authorized individuals can access the ? Enhanced Report with an ? Connect account using the following link. Your local lab can assist you in obtaining the patient report if you don't have a Connect account. [email or web address] PEth Interpretation See Comment 04/22 5:33 PM EST [facility] Comment: Phosphatidylethanol (PEth) is a group of phospholipids formed in the presence of ethanol, phospholipase D and phosphatidylcholine. PEth is known to be a direct alcohol biomarker. The predominant PEth homologues are PEth 16:0/18:1 (POPEth) and PEth 16:0/18:2 (PLPEth), which account for 37-46% and 26-28% of the total PEth homologues, respectively. PEth is incorporated into the phospholipid membrane of red blood cells and has a general half-life of 4-10 days and a window of detection of 2-4 weeks. However, the window of detection is longer in individuals who chronically or excessively consume alcohol. The limit of quantification is 10 ng/mL. Serial monitoring of PEth may be helpful in monitoring alcohol abstinence over time. PEth results should be interpreted in the context of the patient's clinical and behavioral history. Patients with advanced liver disease may have falsely elevated PEth concentrations (Mis MONGE et al 2018, Alcoholism Clinical & Experimental Research). This test was developed and its performance characteristics determined by [facility]. It has not been cleared or approved by the U.S. Food and Drug Administration. This test was performed in a CLIA-certified laboratory and is intended for clinical purposes. Performed By: [facility] [address] [place], [place] [id number] Phlebotomist Medical Lab Assistant: Yusuf Lomas MD, PhD CLIA Number: [id number] Blood Structure of peripheral vein / Unknown Venipuncture / Unknown 05/11/2024 8:02 AM EST 05/11/2024 8:15 AM EST Yunior Pérez MD LAB BLOOD ORDERABLES Fin al Result [place] [phone], * (ABNORMAL) MMR Panel, IgG (05/11/2024 8:02 AM EST) Pathologist [facility] Measles Antibody (IgG), Immune Status <13.50(L) AU/mL 05/11/2024 5:16 PM EST [facility] Comment: AU/mL ?Interpretation ----- ? <13.50 ? Not consistent with immunity 13.50-16.49 ?Equivocal >16.49 ? Consistent with immunity The presence of measles IgG suggests immunization or past or current infection with measles virus. For additional information, please refer to http://education.[employer]/faq/DDW858 (This link is being provided for informational/ educational purposes only.) Mumps Antibody (IgG), Immune Status <9.00(L) AU/mL 05/11/2024 5:16 PM EST [facility] Comment: AU/mL ? Interpretation ------- ? <9.00 ? Not consistent with immunity 9.00-10.99 ?Equivocal >10.99 ?Consistent with immunity The presence of mumps IgG antibody suggests immunization or past or current infection with mumps virus. Rubella Antibody (IgG), Immune Status <0.90(L) Index 05/11/2024 5:16 PM EST [facility] Comment: ?Index ?Interpretation ?----- ?<0.90 ?Not consistent with immunity ?0.90-0.99 ?Equivocal ?> or = 1.00 ?Consistent with immunity The presence of rubella IgG antibody suggests immunization or past or current infection with rubella virus. Blood Structure of peripheral vein / Unknown Venipuncture / Unknown 05/11/2024 8:02 AM EST 05/11/2024 8:15 AM EST Narrative KIMBERLY IZQUIERDO - 05/11/2024 5:16 PM EST [facility] Received Date: Yunior Pérez MD LAB BLOOD ORDERABLES Fin al Result [facility] IZQUIERDO [address] [facility] [address]rd [address], [place] [address], [place] [phone] [facility] [address], [place] [address], [place] [phone] * Magnesium (05/11/2024 8:02 AM EST) MG 1.9 1.6 - 2.4 mg/dL 05/11/2024 8:57 AM EST [facility] Blood Structure of peripheral vein / Unknown Venipuncture / Unknown 05/11/2024 8:02 AM EST 05/11/2024 8:15 AM EST us Yunior Pérez MD LAB BLOOD ORDERABLES Fin al Result Performing Organization Address [facility] Co de Phone Number [facility] [address] [place] [address], [place] * (ABNORMAL) Iron Saturation (05/11/2024 8:02 AM EST) Iron Saturation 6(L) 20 - 50 % 8:57 AM EST [facility] Iron 25(L) 45 - 160 ug/dL 05/11/2024 8:57 AM EST [facility] Transferrin 316 200 - 360 mg/dL 05/11/2024 8:57 AM EST [facility] Total Iron Binding Capacity 395 255 - 450 ug/dL 05/11/2024 8:57 AM EST [facility] Blood Structure of peripheral vein / Unknown Venipuncture / Unknown 05/11/2024 8:02 AM EST 05/11/2024 8:15 AM EST us Yunior Pérez MD LAB BLOOD ORDERABLES Fin al Result Performing Organization Address [facility]/ZIP Co de Phone Number [facility] [address] [place] [address], [place] * (ABNORMAL) Herpes Simplex Virus 1&2, IgG (05/11/2024 8:02 AM EST) HSV 1 IgG Type Specific Ab <0.90 index 05/11/2024 9:20 PM EST [facility] HSV 2 IgG Type Specific Ab 1.66(H) index 05/11/2024 9:20 PM EST [facility] Comment: ?Index ?Interpretation ?----- ?<0.90 ?Negative ?0.90-1.09 ?Equivocal ?>1.09 ?Positive Low HSV-2 IgG positive results (index values between 1.10-3.00) may represent false positive results. CDC 2020 guidelines recommend confirmatory testing of samples with low-positive HSV-2 IgG results. If clinically indicated, consider adding on HSV-2 IgG Inhibition, by contacting [facility]. For additional information, please refer to: https://www.RABBL/healthcare- professionals/sfmibgzj-olqvkmjxg-jbuomt/faq/faq73 (This link is being provided for informational/ educational purposes only.) This assay utilizes recombinant type-specific antigens to differentiate HSV-1 from HSV-2 infections. A positive result cannot distinguish between recent and past infection. If recent HSV infection is suspected but the results are negative or equivocal, the assay should be repeated in 4-6 weeks. The performance characteristics of the assay have not been established for pediatric populations, immunocompromised patients, or screening. For additional information, please refer to http://education.[employer]/faq/IDY729 (This link is being provided for informational/ educational purposes only.) ?? Blood Structure of peripheral vein / Unknown Venipuncture / Unknown 05/11/2024 8:02 AM EST 05/11/2024 8:13 AM EST Narrative [facility] - 05/11/2024 9:20 PM EST [facility] Received Date:[id number] us Yunior Pérez MD LAB BLOOD ORDERABLES Fin al Result Performing Organization Address City/[facility]/ZIP Co de Phone Number [facility] [address], [place] [address], [place] [phone] [employer] [facility] [address], [place] [address], [place] [phone] * Hepatitis C Antibody w/Reflex to PCR (05/11/2024 8:02 AM EST) Hepatitis C Antibody NON-REACT COLLINS NON-REACT COLLINS 05/11/2024 11:44 AM EST [facility] Comment: HCV antibody was non-reactive. There is no laboratory evidence of HCV infection. In most cases, no further action is required. However, if recent HCV exposure is suspected, a test for HCV RNA (test code 96383) is suggested. For additional information please refer to http://imo.im.Certeon.[employer]/faq/IVH76k2 (This link is being provided for informational/ educational purposes only.) Blood Structure of peripheral vein / Unknown Venipuncture / Unknown 05/11/2024 8:02 AM EST 05/11/2024 8:15 AM EST Narrative [facility] - 05/11/2024 11:44 AM EST [facility] Received Date:[id number] us Yunior Pérez MD LAB BLOOD ORDERABLES Fin al Result Performing Organization Address City/[facility]/ZIP Co de Phone Number [facility] [address], [place] [address], [place] [phone] [facility] 200 [facility] 3rd Floor, [place] [address], * (ABNORMAL) Hepatitis B Surface Antibody (05/11/2024 8:02 AM EST) Pathologist [facility] Hepatitis B Surface Ab Immunity, Qn <5(L) > OR = 10 mIU/mL 05/11/2024 11:44 AM EST [facility] Comment: PATIENT DOES NOT HAVE IMMUNITY TO HEPATITIS B VIRUS. For additional information, please refer to http://imo.im.RABBL/faq/ABA469 (This link is being provided for informational/ educational purposes only). Blood Structure of peripheral vein / Unknown Venipuncture / Unknown 05/11/2024 8:02 AM EST 05/11/2024 8:15 AM EST Narrative Slyce [place] - 05/11/2024 11:44 AM EST [facility] Received Date: Yunior Pérez MD LAB BLOOD ORDERABLES Fin al Result [facility] 200 [facility] 3rd Floor, [place] [address], [employer] [facility] 200 [facility] 3rd Floor, [place] [address], * Hepatitis B Surface Antigen w/Confirmation (05/11/2024 8:02 AM EST) Pathologist [facility] Hepatitis B Surface Antigen NON-REACT COLLINS NON-REACT COLLINS 05/11/2024 11:44 AM EST [facility] Comment: For additional information, please refer to http://imo.im.RABBL/faq/VHK081 (This link is being provided for informational/ educational purposes only.) Blood Structure of peripheral vein / Unknown Venipuncture / Unknown 05/11/2024 8:02 AM EST 05/11/2024 8:15 AM EST Narrative [facility] [place] - 05/11/2024 11:44 AM EST [facility] Received Date:[id number] us Yunior Pérez MD LAB BLOOD ORDERABLES Fin al Result KIMBERLY [place] 200 [facility] [address] [facility], [address] [facility] [place] [address], [place] [phone] [employer] [facility] [address], [place] [address], [place] [phone] * Hepatitis B Core Antibody, Total (05/11/2024 8:02 AM EST) Hepatitis B Core Ab Total NON-REACT COLLINS NON-REACT COLLINS 05/11/2024 11:44 AM EST [facility] Comment: For additional information, please refer to http://imo.im.RABBL/faq/KHZ267 (This link is being provided for informational/ educational purposes only.) Blood Structure of peripheral vein / Unknown Venipuncture / Unknown 05/11/2024 8:02 AM EST 05/11/2024 8:15 AM EST [facility] 05/11/2024 11:44 AM EST [facility] Received Date:[id number] us Yunior Pérez MD LAB BLOOD ORDERABLES Fin al Result Performing Organization Address City/[facility]/ZIP Co de Phone Number KIMBERLY IZQUIERDO [address], [place] [address], [place] [phone] [employer] [facility] [address], [place] [address], [place] [phone] * Hepatitis A Antibody, Total (05/11/2024 8:02 AM EST) Hepatitis A Ab, Total NON-REACT COLLINS NON-REACT COLLINS 05/11/2024 11:44 AM EST [facility] Comment: For additional information, please refer to http://imo.im.RABBL/faq/BRI622 (This link is being provided for informational/ educational purposes only.) Blood Structure of peripheral vein / Unknown Venipuncture / Unknown 05/11/2024 8:02 AM EST 05/11/2024 8:15 AM EST [facility] [place] - 05/11/2024 11:44 AM EST [facility] Received Date: Yunior Pérez MD LAB BLOOD ORDERABLES Fin al Result [facility] 200 [facility] 3rd Floor, [place] [address], [facility] 200 [facility] 3[address] Floor, [place] [address], * Hemoglobin A1c (05/11/2024 8:02 AM EST) Hemoglobin A1C 4.7 <5.7 % of total Hgb 05/12/2024 10:03 AM [facility] Comment: For the purpose of screening for the presence of diabetes: <5.7% ? Consistent with the absence of diabetes 5.7-6.4% ?Consistent with increased risk for diabetes ?(prediabetes) > or =6.5% ??Consistent with diabetes This assay result is consistent with a decreased risk of diabetes. Currently, no consensus exists regarding use of hemoglobin A1c for diagnosis of diabetes in children. According to [place] Diabetes Association (ADA) guidelines, hemoglobin A1c <7.0% represents optimal control in non- diabetic patients. Different metrics may apply to specific patient populations. Standards of Medical Care in Diabetes(ADA). ?? eAG (MG/DL) 88 mg/dL 05/12/2024 10:03 AM EST [facility] eAG (MMOL/L) 4.9 mmol/L 05/12/2024 10:03 AM [facility] Blood Structure of peripheral vein / Unknown Venipuncture / Unknown 05/11/2024 8:02 AM EST 05/11/2024 8:15 AM EST Narrative [facility] [place] - 05/12/2024 10:03 AM EST [facility] Received Date:[id number] us Yunior Pérez MD LAB BLOOD ORDERABLES Fin al Result Performing Organization Address [facility]/ZIP Co de Phone Number KIMBERLY [place] 200 [facility] 3rd Floor, [place] [address], [place] [phone] [employer] [facility] 200 [facility] 3rd Floor, [place] [address], [place] [phone] * Ferritin (05/11/2024 8:02 AM EST) [facility] Ferritin 44.9 23.0 - 336.0 ng/mL 05/11/2024 8:57 AM EST [facility] Blood Structure of peripheral vein / Unknown Venipuncture / Unknown 05/11/2024 8:02 AM EST 05/11/2024 8:15 AM EST us Yunior Pérez MD LAB BLOOD ORDERABLES Fin al Result Performing Organization Address [facility] de Phone Number [facility] [address] [place] [address], * (ABNORMAL) Nikhil-Mae Virus VCA, IgG (05/11/2024 8:02 AM EST) [facility] EBV Viral Capsid Ag Ab (IGG) >750.00(H ) U/mL 05/11/2024 5:16 PM EST [facility] Comment: ? U/mL ? Interpretation ? ---- ? <18.00 ? Negative ? 18.00-21.99 ?Equivocal ? >21.99 ? Positive Blood Structure of peripheral vein / Unknown Venipuncture / Unknown 05/11/2024 8:02 AM EST 05/11/2024 8:15 AM EST Narrative KIMBERLY [place] - 05/11/2024 5:16 PM EST [facility] Received Date:[id number] Yunior Pérez MD LAB BLOOD ORDERABLES Fin al Result KIMBERLY IZQUIERDO 200 [facility] 3rd Floor, [place] [address], [facility] 200 [facility] 3rd [address], [place] [address], * (ABNORMAL) Cytomegalovirus Antibody, IgG (05/11/2024 8:02 AM EST) Cytomegalovirus Antibody (IgG) 6.00(H) U/mL 05/12/2024 4:15 AM EST [facility] Comment: ? U/mL ? Interpretation ? ----- ? <0.60 ? Negative ? 0.60-0.69 ? Equivocal ? > or = 0.70 ?? Positive A positive result indicates that the patient has antibody to CMV. It does not differentiate between an active or past infection. Blood Structure of peripheral vein / Unknown Venipuncture / Unknown 05/11/2024 8:02 AM EST 05/11/2024 8:15 AM EST Narrative KIMBERLY [place] - 05/12/2024 4:15 AM EST [facility] Received Date: us Yunior Pérez MD LAB BLOOD ORDERABLES Fin al Result KIM[facility]LY [place] 200 [facility] 3rd Floor, [place] [address], [employer] [facility] 200 [facility] 3rd [address], [place] [address], [place] [phone] * (ABNORMAL) Comprehensive Metabolic Panel (05/11/2024 8:02 AM EST) NA 127(L) 135 - 145 mmol/L 05/11/2024 8:57 AM EST [facility] K 4.5 3.5 - 5.3 mmol/L 05/11/2024 8:57 AM EST [facility] Cl 94(L) 98 - 107 mmol/L 05/11/2024 8:57 AM EST [facility] CO2 21(L) 22 - 32 mmol/L 05/11/2024 8:57 AM EST [facility] Anion Gap 12 5 - 15 05/11/2024 8:57 AM EST [facility] Glucose 105(H) 65 - 99 mg/dL 05/11/2024 8:57 AM EST [facility] Creatinine 1.16 0.60 - 1.30 mg/dL 05/11/2024 8:57 AM EST [facility] Calcium 9.1 8.6 - 10.5 mg/dL 05/11/2024 8:57 AM EST [facility] Total Protein 7.1 6.0 - 8.0 g/dL 05/11/2024 8:57 AM EST [facility] Albumin 3.8 3.5 - 5.2 g/dL 05/11/2024 8:57 AM EST [facility] Bilirubin, Total 1.5(H) 0.2 - 1.2 mg/dL 05/11/2024 8:57 AM EST [facility] Alkaline Phosphatase 165(H) 35 - 129 U/L 05/11/2024 8:57 AM EST [facility] AST 23 10 - 40 U/L 05/11/2024 8:57 AM EST [facility] ALT 11 10 - 40 U/L 05/11/2024 8:57 AM EST [facility] BUN 16 7 - 23 mg/dL 05/11/2024 8:57 AM EST [facility] eGFR 74 >=60 mL/min/1. 73m2 05/11/2024 8:57 AM EST [email or web address] Comment:The estimated glomer ular filtration rate (eGFR) is calculated using a new formula developed by the NKF-ASN task force to eliminate race-based correction factors. The new formula uses serum/plasma creatinine, age, and gender to determine eGFR. A value below 60mls/min might indicate kidney disease and will be flagged. For additional information, see Siddiqui et al, Am J Kidney Dis. 2021;79(2):268- 288, A Unifying Approach for GFR estimation: Recommendations of the NKF-ASN Task Force on Reassessing the Inclusion of Race in Diagnosing Kidney Disease . Globulin, Total 3.3 2.1 - 4.2 g/dL 05/11/2024 8:57 AM EST [facility] A/G Ratio 1.2(L) 1.5 - 3.0 05/11/2024 8:57 AM EST [facility] [facility] Blood Structure of peripheral vein / Unknown Venipuncture / Unknown 05/11/2024 8:02 AM EST 05/11/2024 8:15 AM EST us Yunior Pérez MD LAB BLOOD ORDERABLES Fin al Result [facility] [address] [place] [address], * Ceruloplasmin (05/11/2024 8:02 AM EST) Ceruloplasmin 19 14 - 30 mg/dL 05/13/2024 1:07 AM EST [facility] Blood Structure of peripheral vein / Unknown Venipuncture / Unknown 05/11/2024 8:02 AM EST 05/11/2024 8:15 AM EST Narrative [facility] [place] - 05/13/2024 1:07 AM EST [facility] Received Date: Yunior Pérez MD LAB BLOOD ORDERABLES Fin al Result Performing Organization Address [facility] Co de Phone Number [facility] [place] 200 [facility] 3rd Floor, [place] [address], [place] [phone] [facility] 200 [facility] 3rd Floor, [place] [address], [place] [phone] * (ABNORMAL) Lipid panel (05/11/2024 8:02 AM EST) Cholesterol 142 <=199 mg/dL 05/11/2024 8:57 AM EST [facility] Triglycerides 82 <=149 mg/dL 05/11/2024 8:57 AM EST [facility] Cholesterol, HDL 71(H) 40 - 59 mg/dL 05/11/2024 8:57 AM EST [email or web address] Cholesterol, Non-HDL 71 mg/dL 05/11/2024 8:57 AM EST [facility] LDL Cholesterol 55 <100 mg/dL 05/11/2024 8:57 AM EST [facility] VLDL 16.4 mg/dL 05/11/2024 8:57 AM EST [facility] Cholesterol/HDL Ratio 2.0 <5.0 05/11/2024 8:57 AM EST [facility] Blood Structure of peripheral vein / Unknown Venipuncture / Unknown 05/11/2024 8:02 AM EST 05/11/2024 8:15 AM EST Narrative [facility] - 05/11/2024 8:57 AM EST Adult Treatment Panel III Guidelines of NCEP 2001 ? Category: ? Total Cholesterol (mg/dL) ?Desirable ?<200 ?Borderline High ? 200-239 ?High ?>=240 ? Category: ? LDL Cholesterol (mg/dL) ?Optimal ?<100 ?Near Optimal/Above Optimal ?100-129 ?Borderline High ? 130-159 ?High ?160-189 ?Very High ? >=190 ? Category: ? HDL Cholesterol (mg/dL) ?Low ?<40 ?High ?>=60 NCEP's Expert Panel on Blood Cholesterol in Children and Adolescents ? Category: ? Total Cholesterol (mg/dL) ?Desirable ?<170 ?Borderline High ? 170-199 ?High ?>=200 ? Category: ? LDL Cholesterol (mg/dL) ?Desirable ?<110 ?Borderline High ? 110-129 ?High ?>=130 us Yunior Pérez MD LAB BLOOD ORDERABLES Christian al Result [facility] [address] [place] [address], [place] * (ABNORMAL) CBC Auto Differential (05/11/2024 8:02 AM EST) WBC 8.6 3.8 - 10.8 10*3/uL 05/11/2024 8:22 AM EST [facility] RBC 3.56(L) 4.20 - 5.80 10*6/uL 05/11/2024 8:22 AM EST [facility] Hemoglobin 11.1(L) 13.2 - 17.1 g/dL 05/11/2024 8:22 AM EST [facility] Hematocrit 32.7(L) 38.5 - 50.0 % 05/11/2024 8:22 AM EST [facility] MCV 91.9 80.0 - 100.0 fL 05/11/2024 8:22 AM EST [facility] MCH 31.2 27.0 - 33.0 pg 05/11/2024 8:22 AM EST [facility] MCHC 33.9 32.0 - 36.0 g/dL 05/11/2024 8:22 AM EST [facility] RDW 15.6(H) 11.0 - 15.0 % 05/11/2024 8:22 AM EST [facility] Platelets 193 140 - 400 10*3/uL 05/11/2024 8:22 AM EST [facility] MPV 9.3 7.5 - 12.5 fL 05/11/2024 8:22 AM EST [facility] Neutrophil % 65.1 % 05/11/2024 8:22 AM EST [facility] Immature Grans % 0.3 0.0 - 0.9 % 05/11/2024 8:22 AM EST [facility] Lymphocyte % 19.0 % 05/11/2024 8:22 AM EST [facility] Monocyte % 12.6 % 05/11/2024 8:22 AM EST [facility] Eosinophil % 2.0 % 05/11/2024 8:22 AM EST [facility] Basophil % 1.0 % 05/11/2024 8:22 AM EST [facility] Neutrophil # 5.60 1.50 - 7.80 10*3/uL 05/11/2024 8:22 AM EST [facility] Immature Grans # 0.03 <=0.03 10*3/uL 05/11/2024 8:22 AM EST [facility] Lymphocyte # 1.60 0.85 - 3.90 10*3/uL 05/11/2024 8:22 AM EST [facility] Monocyte # 1.10(H) 0.20 - 0.95 10*3/uL 05/11/2024 8:22 AM EST [facility] Eosinophil # 0.20 0.02 - 0.50 10*3/uL 05/11/2024 8:22 AM EST [facility] Basophil # 0.10 0.00 - 0.20 10*3/uL 05/11/2024 8:22 AM EST [facility] nRBC % 0.0 /100 WBCs 05/11/2024 8:22 AM EST [facility] nRBC # <0.01 <0.01 10*3/uL 05/11/2024 8:22 AM EST [facility] Blood Structure of peripheral vein / Unknown Venipuncture / Unknown 05/11/2024 8:02 AM EST 05/11/2024 8:15 AM EST Yunior Pérez MD LAB BLOOD ORDERABLES Fin al Result [facility] [address] [place] [address], * Mitochondrial Antibody w/Reflex (05/11/2024 8:02 AM EST) Mitochondrial Ab Screen NEGATIVE NEGATIVE 05/14/2024 3:03 PM EST [facility] Comment: The specimen was negative for cytoplasmic antibodies, however additional staining was observed suggesting the presence of Antinuclear Antibodies. Consider requesting order code 249, SHELLY Screen, IFA with Reflex to Titer and Pattern, or order code [id number], SHELLY Screen, IFA w/reflex Titer/Pattern, and Reflex to Multiplex 11 Ab Iron, if clinically indicated. Blood Structure of peripheral vein / Unknown Venipuncture / Unknown 05/11/2024 8:02 AM EST 05/11/2024 8:13 AM EST Narrative [facility] [place] - 05/14/2024 3:03 PM EST [facility] Received Date:[id number] us Yunior Pérez MD LAB BLOOD ORDERABLES Christian briceno Result [facility] [address] [facility] [address] [facility], [place] [address], [employer] [facility] [address], [place] [address], * (ABNORMAL) Cystatin C with Glomerular Filtration Rate, Estimated (eGFR) (05/11/2024 8:02 AM EST) Cystatin C 1.39(H) 0.52 - 1.23 mg/L 05/17/2024 12:21 PM EST [facility] ([place]) eGFR Non- 51(L) >=60 NA 05/17/2024 12:21 PM EST [facility]) Comment: ?REFERENCE RANGE:>=60 mL/min/1.73mE2 ? Blood Structure of peripheral vein / Unknown Venipuncture / Unknown 05/11/2024 8:02 AM EST 05/11/2024 8:14 AM EST Narrative [facility] ([place]) - 05/17/2024 12:21 PM EST [facility] Received Date:[id number] us Yunior Pérez MD LAB BLOOD ORDERABLES King ben Result - Final KIMBERLY POND) [address] [place] [address], [place] * (ABNORMAL) Bilirubin, Direct (05/11/2024 8:02 AM EST) Bilirubin, Direct 0.8(H) <=0.4 mg/dL 05/11/2024 8:57 AM EST [facility] Blood Structure of peripheral vein / Unknown Venipuncture / Unknown 05/11/2024 8:02 AM EST 05/11/2024 8:15 AM EST us Yunior Pérez MD LAB BLOOD ORDERABLES Fin al Result Performing Organization Address [facility] Co de Phone Number [facility] [address] [place] [address], [place] * (ABNORMAL) SHELLY Screen, Reflex to Titer, IFA (05/11/2024 8:02 AM EST) SHELLY Screen, IFA POSITIVE (A) NEGATIVE 05/16/2024 12:00 PM EST [facility] Comment: SHELLY IFA is a first line screen for detecting the presence of up to approximately 150 autoantibodies in various autoimmune diseases. A positive SHELLY IFA result is suggestive of autoimmune disease and reflexes to titer and pattern. Further laboratory testing may be considered if clinically indicated. For additional information, please refer to http://education.[employer]ite[employer] Ltd/faq/RLJ653 (This link is being provided for informational/ educational purposes only.) ?? Blood Structure of peripheral vein / Unknown Venipuncture / Unknown 05/11/2024 8:02 AM EST 05/11/2024 8:15 AM EST Narrative [facility] - 05/16/2024 12:00 PM EST [facility] Received Date:[id number] us Yunior Pérez MD LAB BLOOD ORDERABLES Fin al Result Performing Organization Address City/[facility]/ZIP Co de Phone Number [facility] [address] [place] [address] [address]rd Floor, [address] [place] [address], [place] [phone] [facility] [address], [address] [place] [address], * (ABNORMAL) AFP Tumor Marker (05/11/2024 8:02 AM EST) Pathologist [facility] Alpha Fetoprotein, Tumor Marker 7.4(H) <6.1 ng/mL 05/14/2024 1:16 PM EST [employer] [facility] Comment: This test was performed using the Bakari Paco chemiluminescent method. Values obtained from different assay methods cannot be used interchangeably. AFP levels, regardless of value, should not be interpreted as absolute evidence of the presence or absence of disease. Blood Structure of peripheral vein / Unknown Venipuncture / Unknown 05/11/2024 8:02 AM EST 05/11/2024 8:15 AM EST Narrative [facility] - 05/14/2024 1:16 PM EST [facility] Received Date: Yunior Pérez MD LAB BLOOD ORDERABLES Fin al Result [facility] [place] [address], [place] [address], [facility] [address], [place] [address], * Ioqfm-9-Vzbxqbdjliy (AAT) Phenotype (05/11/2024 8:02 AM EST) Pathologist [facility] Alpha 1 Antitrypsin Phenotype SEE NOTE 05/15/2024 1:10 PM EST [facility]RACHAEL [facility]OSTER Comment: THIS PATIENT'S [id number] PHENOTYPE IS PI*MM. 90% of normal individuals have the MM phenotype, with normal quantitative AAT levels. Many phenotypic patterns have been described, including deficiency states with F, S, Z, or other alleles. As a general estimation, compared to M allele of 100% of normal Z-2-Fgnqdlsebld protein, the S allele produces approximately 60% and the Z allele 20%. For example, an MS phenotype would have about 80% of normal E-5-Bfeekfimkfs protein level, a 50% contribution from the M allele and 30% from the S allele. A ZZ phenotype would have about 20% of normal levels, a 10% contribution from each Z gene. The F allele has normal R-1-Rnolasyjswg levels, but the kinetics of elastase inhibition is not as efficient as an M allele product; F alleles should be considered functionally mildly deficient. Other variants are identifiable by phenotypic analysis. These include CM, DP, EM, GM, IS, LM, M1M2, M3M3, MP, MT, XX, MY, and M1N. I, P, T and null alleles are considered deleterious. C, D, E, G, L, M1, M2, M3, X and Y alleles are generally considered normal variants. The MZ-Linares phenotype is a normal variant; care should be taken to avoid confusion with the deficient MZ phenotype. Blood Structure of peripheral vein / Unknown Venipuncture / Unknown 05/11/2024 8:02 AM EST 05/11/2024 8:13 AM EST [facility] - 05/15/2024 1:10 PM EST [facility] Received Date: Yunior Pérez MD LAB BLOOD ORDERABLES Fin al Result [facility] [address] [place] [address] [address]rd Floor, [place] [address], [place] [phone] [facility] [address] [place] [address], [place] [phone] * Ethanol (05/11/2024 8:02 AM EST) Ethanol <10 <10 mg/dL 05/11/2024 8:53 AM EST [facility] Blood Structure of peripheral vein / Unknown Venipuncture / Unknown 05/11/2024 8:02 AM EST 05/11/2024 8:11 AM EST us Yunior Pérez MD LAB BLOOD ORDERABLES Fin al Result [facility] [address] [place], [place] [address] documented in this encounter Visit Diagnoses Diagnosis Encounter for pre-transplant evaluation for liver transplant- Primary documented in this encounter Care Teams Plasterer Rough Relationship Specialty Start Date End Date Gulshan Chanel [address] [place] [address] PCP - General 04/17/24 documented as of this encounter
--- OUTSIDE RECORDS SUMMARY | 2024-05-30 11:05 | XMS_ITS | Encounter Summary ---
Author Organization [facility] Address [address] [place] [address] Care Team Providers Care Range Technician Name Role Phone Gulshan Chanel Primary Care Provider +1- [phone] Encounter Details Date Type Department Care Team (Late st Contact Info) Description 05/15/2024 Results Follow-Up [facility] Liver Transplant Services [address] [place] [phone] Angela Weaver RN Social History Tobacco Use [...] as of this encounter Miscellaneous Notes * Result Encounter Note - Yunior Pérez MD - 05/18/2024 12:20 PM EST Thanks Blanca! documented in this encounter Plan of Treatment Upcoming Encounters Date Type Department Care Team (Late st Contact Info) Description 06/11/2024 10:30 AM EDT Follow-Up [facility] Liver Transplant Services [address] [place] [address] [phone] Nathan Ortiz MD [address] [place], [place] [phone] 06/11/2024 11:00 AM EDT Clinical Support [facility] Liver Transplant Services [address] [place] [address] documented as of this encounter Visit Diagnoses Not on filedocumented in this encounter Care Teams Range Technician Relationship Specialty Start Date End Date Gulshan Chanel [address] [place] [address] PCP - General 04/17/24 documented as of this encounter
--- OUTSIDE RECORDS SUMMARY | 2024-05-30 11:05 | XMS_ITS | Encounter Summary ---
Author Organization [facility] Address [address] [place] [address] Care Team Providers Care Stone Chimney Mason Name Role Phone Gulshan Chanel Primary Care Provider +[phone] Reason for Visit * Reason Comments Liver Eval * Transplant (Routine) - Authorized Specialty Diagnoses / Procedures Referred By Billy younger Referred To Contact Transplant Diagnoses Liver Transplant Evaluation Erin Allen MD [address] [facility] [address] [place] [address] Phone: tel: fax: [facility] Liver Transplant Services [address] [place] [address] Phone: tel: fax: Referral ID Status Reason Start Date Expiration Date V isits Requested Visits Authorized [id number] Authorized 03/15/2024 03/16/2025 99 99 Encounter Details Date Type Department Care Team (Late st Contact Info) Description 05/11/2024 11:45 AM EST Office Visit [facility] Liver Transplant Services [address] [place] [phone] Evelyn Barr RN Awaiting organ transplant (Primary Dx) Social History Tobacco Use [...] as of this encounter Progress Notes * Evelyn Barr RN - 05/11/2024 11:45 AM EST Tho Miller came to transplant clinic for a liver transplant evaluation. The patient was checked in , VS done and medications/ allergies reviewed. Frailty Scale completed. Patient will continue with liver evaluation. documented in this encounter Plan of Treatment Upcoming Encounters Date Type Department Care Team (Late st Contact Info) Description 06/11/2024 10:30 AM EDT Follow-Up [facility] Liver Transplant Services [address] [place] [phone] Nathan Ortiz MD [address] [place] [phone] 06/11/2024 11:00 AM EDT Clinical Support [facility] Liver Transplant Services [address] [place] [phone] documented as of this encounter Visit Diagnoses Diagnosis Awaiting organ transplant- Primary Awaiting organ transplant status documented in this encounter Care Teams Stone Chimney Mason Relationship Specialty Start Date End Date Gulshan Chanel [address] [place] [address] PCP - General 04/17/24 documented as of this encounter
--- OUTSIDE RECORDS SUMMARY | 2024-05-30 11:05 | XMS_ITS | Encounter Summary ---
Author Organization [facility] Address [address] [place] [address] Care Team Providers Care Correspondence Renew Clerk Name Role Phone Gulshan Chanel Primary Care Provider +1- [phone] Encounter Details Date Type Department Care Team (Late st Contact Info) Description 04/17/2024 Orders Only [facility] Nuclear Medicine [address] [place] [address] Nurys Rutherford MD [address] [place] [phone] Social History Tobacco Use Types Packs/Day Years [...] Info) Description 06/11/2024 10:30 AM EDT Follow-Up [facility] Liver Transplant Services [address] [place] [address] Nathan Ortiz MD [address] [place] [address] 06/11/2024 11:00 AM EDT Clinical Support [facility] Liver Transplant Services [address] [place] [address] documented as of this encounter Visit Diagnoses Not on filedocumented in this encounter Care Teams Correspondence Renew Clerk Relationship Specialty Start Date End Date Gulshan Chanel [address] [place] [address] PCP - General 04/17/24 documented as of this encounter
--- OUTSIDE RECORDS SUMMARY | 2024-05-30 11:05 | XMS_ITS | Encounter Summary ---
Author Organization [facility] Address [address] [place] [address] Care Team Providers Care Collection Manager Name Role Phone Gulshan Chanel Primary Care Provider +1- [phone] Encounter Details Date Type Department Care Team (Late st Contact Info) Description 05/16/2024 Results Follow-Up [facility] Liver Transplant Services [address] [place] [phone] Angela Weaver RN Social History Tobacco Use [...] Note - Yunior Pérez MD - 05/18/2024 8:37 AM EST All set thanks! documented in this encounter Plan of Treatment Upcoming Encounters Date Type Department Care Team (Late st Contact Info) Description 06/11/2024 10:30 AM EDT Follow-Up [facility] Liver Transplant Services [address] [place] [phone] Nathan Ortiz MD [address] [place] [address] 06/11/2024 11:00 AM EDT Clinical Support [facility] Liver Transplant Services [address] [place] [address] documented as of this encounter Visit Diagnoses Not on filedocumented in this encounter Care Teams Collection Manager Relationship Specialty Start Date End Date Gulshan Chanel [address] [place] [address] PCP - General 04/17/24 documented as of this encounter
--- OUTSIDE RECORDS SUMMARY | 2024-05-30 11:05 | XMS_ITS | Encounter Summary ---
Author Organization [facility] Address [address] [place] [address] Care Team Providers Care Traffic And Transport Planner Name Role Phone Gulshan Chanel Primary Care Provider [phone]- [phone] Reason for Visit * Cardiac Diagnostic Testing (Routine) - Closed [...] (TTE) LIMITED W/ DOPPLER, COLOR AND CONTRAST Yunior Pérez MD [address] [place] [address] Phone: tel: fax: Referral ID Status Reason Start Date Expiration Date Visits Re quested Visits Authorized [id number] Closed 04/17/2024 10/17/2025 1 1 Encounter Details Date Type Department Care Team (Latest Contact Info) Description 05/11/2024 8:35 AM EST - 05/11/2024 10:27 AM [facility] Encounter [facility] Cardiac Ultrasound [address] [place], [place] [phone] Yunior Pérez MD [address] [place] [address] Discharge Disposition: Home or Self Care () [...] on file documented as of this encounter Last Filed Vital Signs Vital Sign Reading Time Taken Comments Blood Pressure - - Pulse - - Temperature - - Respiratory Rate - - Oxygen Saturation - - Inhaled Oxygen Concentration - - Weight 70 kg (154 lb 5.2 oz) 05/11/2024 8:38 AM EST Height 175.3 cm (5' 9.02 ) 05/11/2024 8:38 AM ES T Body Mass Index 22.78 05/11/2024 8:38 AM EST documented in this encounter Medications at Time of Discharge albuterol (PROAIR HFA,VENTOLIN HFA) 90 mcg inhaler 03/29/2024 furosemide (LASIX) 40 mg tablet 03/29/2024 gabapentin (NEURONTIN) 300 mg capsule 03/29/2024 ibuprofen (MOTRIN) 800 mg tablet 03/29/2024 lactulose 10 gram/15 mL solution SMARTSI Milliliter( s) By Mouth Twice Daily 03/12/2024 magnesium oxide 250 mg magnesium tablet Take 250 mg by mouth once a day. 04/24/2024 sdxcdof-OEMA-mro-nelson er-hops-lm 0.52-46-409-200 mg capsule 5 mg. 10/11/2023 omeprazole (PriLOSEC) [...] Info) Description 06/11/2024 10:30 AM EDT Follow-Up [facility] Liver Transplant Services [address] [place] [address] Nathan Ortiz MD [address] [place] [address] 06/11/2024 11:00 AM EDT Clinical Support [facility] Liver Transplant Services [address] [place] [address] documented as of this encounter Procedures * Due to [facility] law, this organization might not be sharing negative HIV tests. Procedure Name Priority Date/Time Associated Diagnosis Comments TRANSTHORACIC ECHO (TTE) COMPLETE Routine 05/11/2024 9:00 AM EST Encounter for pre-transplant evaluation for liver transplant documented in this encounter Results * Due to [place] [employer] law, this organization might not be sharing negative HIV tests. * TRANSTHORACIC ECHO (TTE) COMPLETE (05/11/2024 9:00 [...] BSA 1.85 RIGHT ATRIAL PRESSURE 3 mmHg [facility] RV TISSUE DOPPLER S' 12.0 cm/s LV [...] Doppler. Myocardial deformation imaging was performed using [employer] [place]. During the study the apical, parasternal, subcostal and suprasternal view was captured. Overall the study quality was adequate. Prior Study No prior study available for comparison. STRESS ECHO OVERALL FINDINGS Normal RV size and systolic function. No significant valvular disease identified. Yunior Pérez MD CV ECHO PROCEDURES Final Result documented in this encounter Visit Diagnoses Not on filedocumented in this encounter Care Teams Traffic And Transport Planner Relationship Specialty Start Date End Date Gulshan hCanel [address] [place] [address] PCP - General 04/17/24 documented as of this encounter
--- OUTSIDE RECORDS SUMMARY | 2024-05-30 11:05 | XMS_ITS | Encounter Summary ---
Author Organization [facility] Address [address] [place] [address] Care Team Providers Care Financial Institution Vice President Name Role Phone Gulshan Chanel Primary Care Provider +1- [phone] Reason for Visit * Transplant (Routine) - Authorized Specialty Diagnoses / Procedures Referred By Billy younger Referred To Contact Transplant Diagnoses Liver Transplant Evaluation Erin Allen MD [address] [facility] [address] [place] [address] Phone: tel: fax: [facility] Liver Transplant Services [address] [place] [address] Phone: tel: fax: Referral ID Status Reason Start Date Expiration Date V isits Requested Visits Authorized [id number] Authorized 03/15/2024 03/16/2025 99 99 Encounter Details Date Type Department Care Team ([facility] st Contact Info) Description 05/11/2024 12:15 PM EST Social Work [facility] Liver Transplant Services [address] [place] [address] Radha Garcia, [address] Transplant Services [address] [address] Social History Tobacco Use Types Packs/Day Years [...] as of this encounter Progress Notes * Radha NullSolitario Garcia, [facility] - 05/11/2024 12:15 PM EST INITIAL LIVER TRANSPLANT PSYCHOSOCIAL EVALUATION Identifying information/referral information: Patient is a 54-year-old male who is here with his Bella and her service dog Lisa for an initial psychosocial evaluation for liver transplant. Patient was informed of the role of transplant oncology social work, purpose of the evaluation and contact information given. Patient reports the cause of his liver disease is drinking whiskey . He reports he was first told about his liver disease around January 2023. 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 Social history: Patient and his Bella live in a hotel in [place] [facility] [facility]. They have been their since the beginning of February 2024. Patient and his have been together for 25 years but have been for 7 years. Patient has 1 adult daughter who he does not have any contact with. Prior to living in the hotel patient reports he was living at [facility] in [facility] Patient reports this facility closed February 26 due to substandard conditions and subsequently patienthas been in the hotel since then. Patient explains he was at [facility] nursing and rehab facility for about a year. During this time, his was staying with her sister in [place]. Prior to being a [facility] patient states he was homeless for a while and was staying with friends and hotels. Patient was born in [place] and raised in [place]. Patient has 2 brothers. One brother lives in [place] and another brother lives in [place]. He is estranged from his brother wholives in [place]. He speaks with his brother Lucas who lives in [place]. Patient has 2 sisters,one is and the other he is estranged from. Patient's mother is 92 years old and [facility]. Patient's father when patient was 10 years old. Patient completed high school and has some college credits. Patient reports he spent 6 years in the [employer]. He was not deployed. Patient reports he last worked in 2022. 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 Patient's interest include flying planes, skiing and waterskiing. He also enjoys backpacking,camping and horseback riding. Patient's baptist is [employer]. Financial history: Patient reports he is on Social Security disability and receives about $2000 a month. He states hisdisability is due to his back problems. Patient's does not have any income. She states she is disabled. reports she applied Social Security disability several times however was denied. Wifeis currently in the process of an appeal. reports she just got confirmation that she no longer lives in [place] so can apply for DTA including bob assistance and food/SNAP. Patient and report that they are currently living off of their savings. They deny any concernswith being able to pay for the hotel they are living in. Patient states they are paying $2000 a month for the room. They state they can continue paying until they find their own apartment. Patient reports however that it has been hard to find a regular rent apartment because they do not have any credit. Patient denies he has applied for subsidized housing. Patient's insurance is Medicare part A and B and [employer] standard. Transplant SW educated patient about the importance of notifying the transplant program and of any problems or changes in his insurance to ensure proper coverage for transplant, posttransplant follow-up and posttransplant medications. 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 Patient relies on [employer]/PT 1 transportation to get to medical appointments. Patient's does not have a license. Patient reports he is independent with taking his medications but his sets them up in a pillbox for him. Patient's is here today and seems very supportive and involved in his care. reports she helps him with personal care as needed and helps with homemaking chores such as cleaning, laundry and cooking. Transplant SW educated patient and regarding the care and supervision that would be needed throughout recovery from liver transplant. Patient's is here today and states that she would be patient's main caregiver. She does not work. reports that she would be able to participate in posttransplant education and that should be able to provide care and supervision. In regards to alternate support, states she has family in [place] and [place] that may be able to provide support. When transplant SW asked about alternate housing should he no longer be able to afford the hotel, patient states that they have friends or 's family that they could stay with. Substance use/substance treatment: Patient denies any current use of alcohol. Patient reports he last drank January 2023 when he was hospitalized at [facility] and diagnosed with liver disease. Following that hospitalization hewas [facility] [place]. Patient reports he used to drink a half a norm more of whiskey on a daily basis. He attributes his drinking to self-medicating back pain. He reports his drinking increased due to his back pain. Patient denies his alcohol use ever cause any legal problems such as a DUI. Patient denies negative consequences such as work or relationship problems. Patient denies anyone in his environment is abusing alcohol or drugs. Patient denies any history of illicit drug use such as heroin, cocaine. Patient reports recently trying marijuana edibles to see if this would help his back pain. He states he only uses marijuana when his is there. Patient states his primary care physician prescribes tramadol for pain. Patient denies any history of getting addicted or abusive of opiate pain medication. Patient reports he quit smoking cigarettes a couple months ago. Transplant SW educated patient regarding the transplant substance use policy. Patient was informed that any use of alcohol drugs would affect his status on the transplant list. Patient signed the transplant substance use monitoring agreement and is willing to do random alcohol and drug testing if requested by the team. Transplant SW educated patient regarding the benefits of participating in some addiction counselingto help increase coping skills to prevent relapse. Patient was willing to meet with the addiction team if required. Psychiatric history: Patient denies a history of inpatient or outpatient mental health treatment. Patient denies being on psychiatric medication. Patient denies any trauma history. Patient denies any history of significant significant depression or anxiety. Patient denies any current depression, anxiety or mood concerns. Regarding coping strategies, patient states he nahun by the emotional support provided from his and the service dog Lisa. He also tries to do workouts in his room and shows transplant SW a journal where he writes down all the exercises that he does. Mental status: Patient is casually dressed. No unusual behaviors or movements noted. Patient is pleasant, cooperative and seems open and honest in his responses. Speech is normal in rate and tone, affect is appropriate to situation, thought process and thought content are intact. Impression: Patient is a pleasant 54-year-old man who is here with his Bella for liver transplant evaluation. Patient acknowledges the severity of his illness and that it is the result of drinking alcohol. Transplant SW educated patient broadly regarding the issues involved with liver transplantation including the importance of compliance with posttransplant follow-up appointments, lab work, taking lifelong immunosuppressive medication and lifelong sobriety. Transplant SW educated patient regarding the psychosocial risks of transplant including the possibility of emotional reactions such as d epression, anxiety, PTSD, guilt over dependence on others and the potential for difficulty accessing private life, health or disability insurance following transplant. Patient's is here today and states her commitment to being patient's primary support followingtransplant. She reports she would be able to provide care, supervision and help him with all of hisactivities of daily living. She currently is already involved in helping to make sure patient is taking his medications properly and helping him with all homemaking chores. however does not drive. She does however come with him on his PT-1 rides. Patient appears to have limited alternate support. Patient states a commitment to lifelong sobriety and is willing to meet with the addiction team if requested by the transplant team. Patient's main psychosocial issue is housing insecurity. They are currently living in a hotel, paying $2000 a month. They have been living there since the beginning of February 2024. Patient has not yet applied for subsidized housing. Patient states he has been looking for market rent apartments however it has been hard to get something because per patient he does not have any credit. Patient and states that they have enough savings to be able to continue paying for the hotel. Transplant SW did express concern that this funds could be exhausted before they get into subsidizedhousing because the wait lists are so long. Transplant SW strongly advised patient to apply for subsidized housing soon as possible. Transplant SW provided guidance regarding the process of applying for housing and informed of [place] application which is a universal application where they can indicate all the towns that they would be interested in living. Advised them to also go to their local Housing Authority for housing assistance and to see if they can apply for prioritized housing due to his medical condition. Asked patient to keep transplant SW informed of his progress in applying for housing and also if they are able to secure an apartment. Psychosocial evaluation and candidacy for liver transplant will be further reviewed with the transplant team. Plan: 1. Patient was given information regarding the virtual liver transplant support group and a transplant caregiver support group. 2. Patient completed healthcare proxy form and chose his Bella Miller as his healthcare proxy([phone]). 3. Patient completed a release of information form allowing sharing of health information with his . 4. Transplant SW instructed patient to go their local housing authority to apply for subsidized housing. 5. Transplant SW will continue to follow patient with transplant team provide psychosocial support as necessary. documented in this encounter Plan of Treatment Upcoming Encounters Date Type Department Care Team (Late st Contact Info) Description 06/11/2024 10:30 AM EDT Follow-Up [facility] Liver Transplant Services [address] [place] [phone] Nathan Ortiz MD [address] [place] [address] 06/11/2024 11:00 AM EDT Clinical Support [facility] Liver Transplant Services [address] [place] [phone] documented as of this encounter Visit Diagnoses Not on filedocumented in this encounter Care Teams Financial Institution Vice President Relationship Specialty Start Date End Date Gulshan Chanel [address] [place] [address] PCP - General 04/17/24 documented as of this encounter
--- OUTSIDE RECORDS SUMMARY | 2024-05-30 11:05 | XMS_ITS | Encounter Summary ---
Author Organization [facility] Address [address] [place] [address] Care Team Providers Care Electrical Hardware Engineer Name Role Phone Gulshan Chanel Primary Care Provider [phone] Reason for Visit * Transplant (Routine) - Authorized Specialty Diagnoses / Procedures Referred By Billy younger Referred To Contact Transplant Diagnoses Liver Transplant Evaluation Erin Allen MD [address] [facility] [address] [place] [address] Phone: tel: fax: [facility] [address] [place] [address] Phone: tel: fax: Referral ID Status Reason Start Date Expiration Date V isits Requested Visits Authorized [id number] Authorized 03/15/2024 03/16/2025 99 99 Encounter Details Date Type Department Care Team (Late st Contact Info) Description 05/11/2024 1:45 PM EST Nutrition [facility] [address] [place] [address] [facility] [place], [place] Social History Tobacco Use Types Packs/Day Years [...] Info) Description 06/11/2024 10:30 AM EDT Follow-Up [facility] [address] [place] [address] Nathan Ortiz MD [address] [place] [address] 06/11/2024 11:00 AM EDT Clinical Support [facility] [address] [place] [address] documented as of this encounter Visit Diagnoses Not on filedocumented in this encounter Care Teams Electrical Hardware Engineer Relationship Specialty Start Date End Date Gulshan Chanel [address] [place] [address] PCP - General 04/17/24 documented as of this encounter
--- OUTSIDE RECORDS SUMMARY | 2024-05-30 11:05 | XMS_ITS | Encounter Summary ---
Author Organization [facility] Address [address] [place] [address] Care Team Providers Care Pediatric Dental Hygienist Name Role Phone Gulshan Chanel Primary Care Provider [phone]- [phone] Encounter Details Date Type Department Care Team (Late st Contact Info) Description 05/08/2024 Telephone [facility] Transplant Department [address] [place] [address] Angela Weaver RN Social History Tobacco Use [...] * Telephone Encounter - Blanca Wilkins - 05/08/2024 3:01 PM EST Confirmed 05/11 Multi D and testing with Deloris. documented in this encounter Plan of Treatment Upcoming Encounters Date Type Department Care Team (Late st Contact Info) Description 06/11/2024 10:30 AM EDT Follow-Up [facility] [address] [place] [phone] Nathan Ortiz MD [address] [place] [phone] 06/11/2024 11:00 AM EDT Clinical Support [facility] [address] [place] [phone] documented as of this encounter Visit Diagnoses Not on filedocumented in this encounter Care Teams Pediatric Dental Hygienist Relationship Specialty Start Date End Date Gulshan Chanel [address] [place] [address] PCP - General 04/17/24 documented as of this encounter
--- OUTSIDE RECORDS SUMMARY | 2024-05-30 11:05 | XMS_ITS | Encounter Summary ---
Author Organization [facility] Address [address] [place] [address] Care Team Providers Care Grade Checker Name Role Phone Gulshan Chanel Primary Care Provider [phone] Reason for Visit * Reason Comments Liver Eval * Transplant (Routine) - Authorized Specialty Diagnoses / Procedures Referred By Billy younger Referred To Contact Transplant Diagnoses Liver Transplant Evaluation Erin Allen MD [address] [facility] [address] [place] [phone] Phone: tel: fax: [facility] [address] [place] [address] Phone: tel: fax: Referral ID Status Reason Start Date Expiration Date V isits Requested Visits Authorized [id number] Authorized 03/15/2024 03/16/2025 99 99 Encounter Details Date Type Department Care Team (Late st Contact Info) Description 05/11/2024 3:15 PM EST Office Visit [facility] [address] [place] [phone] Kash Ramirez MD PhD [address] [place] [address] [phone] Alcoholic cirrhosis of liver with ascites (CMS/HCC) (HCC) (Primary Dx); Portal hypertension (CMS/HCC) (HCC); Moderate protein-calorie malnutrition (HCC); Secondary esophageal varices without bleeding (HCC) Social History Tobacco Use Types Packs/Day Years Used Date Smoking Tobacco: Every Day Cigarettes Smokeless Tobacco: Never Tobacco Cessation:Ready to Q uit: Not Asked; Counseling Given: Not Answered Alcohol Use Standard Drinks/Week Comments Not Currently [...] Sign Reading Time Taken Comments Blood Pressure 108/70 05/11/2024 11:38 AM EST Pulse 80 05/11/2024 11:38 AM EST Temperature 36.5 ??C (97.7 ??F) 05/11/2024 11:[address] Respiratory Rate 18 05/11/2024 11:38 AM EST Oxygen Saturation 98% 05/11/2024 11:38 AM EST Inhaled Oxygen Concentration - - Weight 76.9 kg (169 lb 8.5 oz) 05/11/2024 11:38 AM EST Height - - Body Mass Index 25.02 05/11/2024 8:38 AM EST documented in this encounter Progress Notes * Kash Ramirez MD PhD - 05/11/2024 1:33 PM EST Reason For Visit Tho Miller is a 54 y.o. male who has come to the clinic for a Liver transplant evaluation visit. History of Present Illness: Tho Miller is a 54 y.o. male with Chronic Hepatic Failure, secondary to Alcoholic Liver Disease. The patient's complications of Cirrhosis include Ascites, Esophageal Varices, Hepatic Encephalopathy, Malnutrition, and portal hypertension . He was diagnosed with cirrhosis around 01/2023 at which time he was admitted with lower extremity neuropathy, generalized weakness, and abdominal distension found to have new ascites. He is getting one large volume paracentesis per month on average (about 6L). He is on lasix and spironolactone but titration has been limited by hyponatremia. He has had large esophageal varices that were banded andportal hypertensive gastropathy. Currently his ascites is better controled and he hasn't required para for over 2m. He continues to be on lactulose. He has no history of surgeries. Medications: Current Outpatient Medications Medication Sig Dispense [...] 250 mg by mouth once a day. [id number] mg capsule 5 mg. omeprazole (PriLOSEC) 20 [...] No current facility-administered medications for this visit. Allergies: No Known Allergies Medical History: History reviewed. No pertinent past medical history. Surgical History: History reviewed. No pertinent surgical history. Family History: No family history on file. Social History: Social History Socioeconomic History Marital status: Spouse name: None Number of children: None Years of education: None Highest education level: None Occupational History None Tobacco Use Smoking status: Every Day Types: Cigarettes Smokeless tobacco: Never Vaping Use Vaping status: Never Used Substance and Sexual Activity Alcohol use: Not Currently Comment: quit 1 year ago Drug use: Yes Types: Marijuana Sexual activity: None Other Topics Concern None Social History Narrative None Social Drivers of Health Food: Not on file Transportation: Not on file Review of Systems: Review of Systems Constitutional: Positive for activity change, fatigue and weight gain. Negative for chills, fever and unexpected weight change. HENT: Negative. Negative for ear pain, hearing loss, tinnitus, congestion, rhinorrhea, sore throat,trouble swallowing and voice change. Eyes: Negative for pain, photophobia and itching. Respiratory: Negative for apnea, chest tightness, cough, shortness of breath and wheezing. Cardiovascular: Positive for Decreased exercise tolerance. Negative for chest pain, leg swelling and palpitations. Gastrointestinal: Positive for abdominal distention. Negative for abdominal pain, constipation, diarrhea, nausea and vomiting. Genitourinary: Negative for difficulty urinating, dysuria, flank pain, frequency and hematuria. Endocrine: Negative for cold intolerance and heat intolerance. Musculoskeletal: Negative for gait problem, joint swelling, myalgias and neck pain. Skin: Negative for color change, pallor, rash and wound. Neurological: Negative for dizziness, headaches, light-headedness, numbness, seizures, speech difficulty, syncope, tremors and weakness. Hematological: Negative for adenopathy. Psychiatric/Behavioral: Negative for agitation, confusion, hallucinations and self-injury. The patient is not nervous/anxious. Physical Exam: Body mass index is 25.02 kg/m??. Vitals: 05/11/24 1138 BP: 108/70 BP Location: Left arm Patient Position: Sitting Pulse: 80 Resp: 18 Temp: 36.5 ??C (97.7 ??F) TempSrc: Oral SpO2: 98% Weight: 76.9 kg (169 lb 8.5 oz) Physical Exam Vitals reviewed. Constitutional: General: He is not in acute distress. Appearance: He is well-developed. He is ill-appearing. He is not toxic-appearing or diaphoretic. HENT: Head: Normocephalic and atraumatic. Right Ear: External ear normal. Left Ear: External ear normal. Mouth/Throat: Mouth: Mucous membranes are moist. Pharynx: Oropharynx is clear. Eyes: General: No scleral icterus. Right eye: No discharge. Left eye: No discharge. Extraocular Movements: Extraocular movements intact. Conjunctiva/sclera: Conjunctivae normal. Pupils: Pupils are equal, round, and reactive to light. Neck: Vascular: No JVD. Trachea: No tracheal deviation. Cardiovascular: Rate and Rhythm: Normal rate and regular rhythm. Heart sounds: Normal heart sounds. No murmur heard. No friction rub. Pulmonary: Effort: Pulmonary effort is normal. No respiratory distress. Breath sounds: Normal breath sounds. No stridor. No wheezing, rhonchi or rales. Chest: Chest wall: No tenderness. Abdominal: General: Bowel sounds are normal. There is no distension. Palpations: Abdomen is soft. There is no mass. Tenderness: There is no abdominal tenderness. There is no guarding or rebound. Hernia: No hernia is present. Musculoskeletal: General: No swelling, tenderness or deformity. Normal range of motion. Cervical back: Neck supple. No rigidity. Lymphadenopathy: Cervical: No cervical adenopathy. Skin: General: Skin is warm. Findings: No bruising, erythema or rash. Neurological: General: No focal deficit present. Mental Status: He is alert and oriented to person, place, and time. Cranial Nerves: No cranial nerve deficit. Sensory: No sensory deficit. Motor: No weakness. Coordination: Coordination normal. Deep Tendon Reflexes: Reflexes are normal and symmetric. Psychiatric: Mood and Affect: Mood normal. Behavior: Behavior normal. Thought Content: Thought content normal. Judgment: Judgment normal. Labs Review: Blood Type: B Lab Results Component Value Date WBC 8.6 05/11/2024 HGB 11.1 (L) 05/11/2024 HCT 32.7 (L) 05/11/2024 PLT 193 05/11/2024 NA 127 (L) 05/11/2024 K 4.5 05/11/2024 CL 94 (L) 05/11/2024 CO2 21 (L) 05/11/2024 CREATININE 1.16 05/11/2024 BUN 16 05/11/2024 AST 23 05/11/2024 ALT 11 05/11/2024 TSH 2.130 05/11/2024 INR 1.1 05/11/2024 BILITOT 1.5 (H) 05/11/2024 ALKPHOS 165 (H) 05/11/2024 ALBUMIN 3.8 05/11/2024 MELD Score: MELD 3.0: 18 at 05/11/2024 8:02 AM MELD-Na: 11 at 05/11/2024 8:02 AM Calculated from: Serum Creatinine: 1.16 mg/dL at 05/11/2024 8:02 AM Serum Sodium: 127 mmol/L at 05/11/2024 8:02 AM Total Bilirubin: 1.5 mg/dL at 05/11/2024 8:02 AM Serum Albumin: 3.8 g/dL (Using max of 3.5 g/dL) at 05/11/2024 8:02 AM INR(ratio): 1.1 at 05/11/2024 8:02 AM Age at listing (hypothetical): 54 years Sex: Male at 05/11/2024 8:02 AM Cardiac Evaluation: @IMAGINGLASTECHO@ Recent Stress Echocardiogram No resulted procedures found. Recent Cardiac Cath No resulted procedures found. Imaging Recent Abdominal CT No resulted procedures found. Recent Abdominal MRI No resulted procedures found. Liver Transplant Assessment and Plan Tho Miller is a 54 y.o. male with Chronic Hepatic Failure, secondary to Alcoholic Liver Disease, who is coming in for liver transplant evaluation. The patient appears to be a good candidate for liver transplant from a surgical perspective. No additonal workup is required for their evaluation. I had an extensive conversation with the patient, explaining the risks, benefits alternatives, limitations and potential complications of the operation. I reviewed the overall survival advantage of liver transplant relative to medical therapy. I also reviewed the expected outcomes for liver transplant at the [facility] and nationally. Specific risks reviewed include: intra-op andperi-operative (5%), primary non function and need for retransplant (~5%), delayed graft function, vascular complications, transmission of infectious diseases from the donor (1%), long ICU stay, need for hemodialysis, biliary complications, bleeding, infections, hernias and rejection. I also reviewed the need for lifelong immunosuppression and its short-term and long-term side effects and complications including increased risk of infections, risk of developing or worsening of diabetes as well as increased risk of certain types of malignancies including skin cancer.. The organ allocation system based on the meld score and the current availability of donor organs in our region were reviewed with the patient. I then reviewed the difference between standardcriteria organs and extended criteria organs. I took a long time explaining different types of extended criteria organs including organs from older donors, organs with some degree of steatosis, organs which longer than usual cold ischemia times, organs from donors of the considered to be PHS elevated risk by virtue of an increased risk of transmission of infectious diseases from donor to recipient such as hepatitis B, hepatitis C, and HIV despite negative serology and nucleic acid testing in the donor as well as risk of transmission of other diseases such as cancer. The patient understands all the risks and issues involved a use of those types of organs and is willing to consider extended criteria organs including public health service increased risk, hepatitis B core positive, livers from older donors, liver steatosis, livers from donors with a history of cancer, hepatitis C positive. The patient also understands that they have the right to refuse any organ offer at any time without this affecting their position on the waitlist, or their chances of receiving subsequent organ offersin the future. I also extensively reviewed the advantages of a liver transplant from a living donor as compared toremaining on the donor waitlist. We reviewed the workup process for the donor, donor surgery and the specifics of living donor liver transplant for the recipient. We will complete this patient's workup and present it to our multidisciplinary liver transplant evaluation committee. Thank you very much for the opportunity to participate in care of this very pleasant patient. Please do not hesitate to contact me if you have any questions or concerns. I spent 45 minutes interviewing examining and counseling this patient of which at least 35 minutes in [id number] patient encounter. I have seen and evaluated Dangelo Miller and will be providing ongoing care and management for these medical conditions: chronic hepatic failure Kash Ramirez MD PhD documented in this encounter Plan of Treatment Upcoming Encounters Date Type Department Care Team (Late st Contact Info) Description 06/11/2024 10:30 AM EDT Follow-Up [facility] [address] [place] [address] Nathan Ortiz MD [address] [place] [address] 06/11/2024 11:00 AM EDT Clinical Support [facility] [address] [place] [phone] documented as of this encounter Visit Diagnoses Diagnosis Alcoholic cirrhosis of liver with ascites (CMS/HCC) (HCC)- Primary Portal hypertension (CMS/HCC) (HCC) Portal hypertension Moderate protein-calorie malnutrition (HCC) Secondary esophageal varices without bleeding (HCC) documented in this encounter Care Teams Grade Checker Relationship Specialty Start Date End Date Gulshan Chanel [address] [place] [address] PCP - General 04/17/24 documented as of this encounter
--- OUTSIDE RECORDS SUMMARY | 2024-05-30 11:05 | XMS_ITS | Encounter Summary ---
Author Organization [facility] Address [address] [place] [address] Care Team Providers Care Trade Mark Examiner Name Role Phone Gulshan Chanel Primary Care Provider [phone]- [phone] Reason for Visit * Reason Onset Date Comments Med Refill 05/11/2024 Encounter Details Date Type Department Care Team (Late st Contact Info) Description 05/11/2024 Refill [facility] Transplant Department [address] [place] [address] Alena Olivier Hepatic cirrhosis, unspecified hepatic cirrhosis type, unspecified whether ascites present (CMS/HCC) (HCC) (Primary Dx); Moderate protein-calorie malnutrition (HCC) Social History Tobacco Use Types Packs/Day [...] Info) Description 06/11/2024 10:30 AM EDT Follow-Up [facility] [address] [place] [address] Nathan Ortiz MD [address] [place] [address] 06/11/2024 11:00 AM EDT Clinical Support [facility] [address] [place] [address] documented as of this encounter Visit Diagnoses Diagnosis Hepatic cirrhosis, unspecified hepatic cirrhosis type, unspecified whether ascites present (CMS/HCC) (HCC)- Primary Moderate protein-calorie malnutrition (HCC) documented in this encounter Care Teams Trade Mark Examiner Relationship Specialty Start Date End Date Gulshan Chanel [address] [place] [address] PCP - General 04/17/24 documented as of this encounter
--- OUTSIDE RECORDS SUMMARY | 2024-05-30 11:06 | XMS_ITS | Referral Summary ---
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 Name Role Phone Gulshan Chanel García Primary Care Provider Encounters Date Type Department Care Team Description 05/24/2024 Telephone [facility] Transplant Department [address] [place] [address] [phone] Angela Weaver, LUDY 05/18/2024 Orders Only [facility] Transplant Department [address] [place] [address] [phone] Angela Weaver, LUDY Encounter for pre-transplant evaluation for liver transplant (Primary Dx) 05/16/2024 Orders Only [facility] Transplant Department [address] [place] [address] [phone] Angela Weaver, RN Alcoholic cirrhosis of liver with ascites (CMS/HCC) (HCC) (Primary Dx) 05/16/2024 Telephone [facility] [address] [place] [address] 55285 Document Analyst: Yunior Bravo MD 05/16/2024 Results Follow-Up [facility] [address] [place] [address] [phone] Angela Weaver, LUDY 05/16/2024 Telephone [facility] Trans[facility] [address] [place] [address] [phone] Angela Weaver, LUDY 05/15/2024 Results Follow-Up [facility] [address] [place] [address] 26834 Angela Weaver, LUDY 05/11/2024 Refill [facility] Transplant [facility] [address] [place] [address] [phone] Alena Olivier Hepatic cirrhosis, unspecified hepatic cirrhosis type, unspecified whether ascites present (CMS/HCC) (HCC) (Primary Dx); Moderate protein-calorie malnutrition (HCC) 05/11/2024 10:28 AM EST - 05/11/2024 11:59 PM EST Hospital Encounter [facility] CT Scan [address] [place] [address] 45632 Yunior Pérez MD Discharge Disposition: Home or Self Care (01) 05/11/2024 11:45 AM EST Office Visit [facility] [address] [place] [address] [phone] Evelyn Barr RN Awaiting organ transplant (Primary Dx) 05/11/2024 12:15 PM EST Social Work [facility] [address] [place] [address] 59223 Radha Higginbotham [facility] 05/11/2024 1:00 PM EST Office Visit [facility] [address] [place] [address] [phone] Nathan Ortiz MD Encounter for pre-transplant evaluation for chronic liver disease (Primary Dx) 05/11/2024 1:45 PM EST Nutrition [facility] [address] [place] [address] 05/11/2024 2:30 PM EST Office Visit [facility] [address] [place] [address] 29425 Preeti Mcdaniel MD Co, Elizabeth Hartmann MD Special screening examination for infectious diseases (Primary Dx); Encounter for pre-transplant evaluation for liver transplant; Cytomegalovirus infection, unspecified cytomegaloviral infection type (HCC) 05/11/2024 3:15 PM EST Office Visit [facility] [address] [place] [address] [phone] Kash Ramirez MD PhD Alcoholic cirrhosis of liver with ascites (CMS/HCC) (HCC) (Primary Dx); Portal hypertension (CMS/HCC) (HCC); Moderate protein-calorie malnutrition (HCC); Secondary esophageal varices without bleeding (HCC) 05/11/2024 8:35 AM EST - 05/11/2024 10:27 AM EST Hospital Encounter [facility] ACC Building Cardiac Ultrasound [address] [place] [address] [phone] Yunior Pérez MD Discharge Disposition: Home or Self Care (01) 05/09/2024 Telephone [facility] Transplant Department [address] [place] [address] 35825 Angela Weaver, LUDY 05/08/2024 Telephone [facility] [address] [place] [address] [phone] Angela Weaver, LUDY 05/01/2024 Telephone [facility] [address] [place] [address] [phone] Angela Weaver, LUDY 04/18/2024 Orders Only [facility] Trans[facility] [address] [place] [address] 15401 Angela Weaver, RN Encounter for pre-transplant evaluation for liver transplant (Primary Dx) 04/17/2024 Orders Only [facility] Nuclear Medicine [address] [place] [address] [phone] Nurys Rutherford MD 04/17/2024 Abstract [facility] Trans[facility] [address] [place] [address] 14439 Yunior Pérez MD 04/17/2024 1:00 PM EST Office Visit [facility] [address] [place] [address] [phone] Yunior Pérez MD Encounter for pre-transplant evaluation for liver transplant (Primary Dx) 04/17/2024 12:00 PM EST Evaluation [facility] [address] [place] [address] [phone] Angela Weaver, RN Encounter for pre-transplant evaluation for liver transplant (Primary Dx) 04/12/2024 Documentation [facility] [address] [place] [address] [phone] Shaka-MacPhers on, Radha F., MANAGER [employer] Transportation 04/11/2024 Orders Only [facility] [address] [place] [address] [phone] Angela Weaver, RN Encounter for pre-transplant evaluation for liver transplant (Primary Dx) 04/06/2024 Telephone [facility] [address] [place] [address] 29598 Angela Weaver, RN 04/05/2024 Telephone [facility] [address] [place] [address] 22491 Frederick-MacPhers on, Radha F., MA[employer]GER [employer] social worker palliative care 03/30/2024 Telephone [facility] Trans[facility] [address] [place] [address] 89775 Shaka-MacPhers on, Radha F., MANAGER [employer] Transportation 03/29/2024 Telephone [facility] [address] [place] [address] [phone] Angela Weaver, RN 03/29/2024 Documentation [facility] [address] [place] [address] [phone] Frederick-MacPhers on, Radha F., MANAGER [employer] Transportation 03/16/2024 Orders Only [facility] [address] [place] [address] [phone] Provider, Unknown, MD 03/15/2024 Orders Only [facility] Transplant Department [address] [place] [address] ProviderTimothy MD from Last 3 Months Allergies No known active allergies Medications gabapentin (NEURONTIN) 300 mg capsule 5 Active ondansetron ODT (ZOFRAN ODT) 8 mg disintegrating tablet 5 Active rOPINIRole (REQUIP) 0.5 mg tablet Take 0.5 mg by mouth. 4 Active albuterol (PROAIR HFA,VENTOLIN HFA) 90 mcg inhaler 5 Active lactulose 10 gram/15 mL solution SMARTSI Milliliter(s) By Mouth Twice Daily 4 Active furosemide (LASIX) 40 mg tablet 5 Active ibuprofen (MOTRIN) 800 mg tablet 5 Active traMADoL (ULTRAM) 50 mg tablet 5 Active potassium chloride ER (KLOR-CON) 20 mEq tablet 5 Active spironolactone (ALDACTONE) 100 mg tablet 5 Active omeprazole (PriLOSEC) 20 mg capsule 5 Active vitamin B complex tablet extended release Take by mouth. 4 Active uefpaqn-YHBA-ehq-v cqxu-gbgl-pn 0.68-71-512-200 mg capsule 5 mg. 4 Active magnesium oxide 250 mg magnesium tablet Take 250 mg by mouth once a day. 5 Active thiamine HCl (VITAMIN B1) 100 mg tablet Take 100 mg by mouth once a day. 5 Active food supplemt, lactose-reduced (Boost Plus) 0.06 gram- 1.5 kcal/mL liquidIndications: Hepatic cirrhosis, unspecified hepatic cirrhosis type, unspecified whether ascites present (CMS/HCC) (HCC),Moderate protein-calorie malnutrition (HCC) Take 1 Bottle by mouth 2 (two) times a day. 55166 mL 3 5 Active vitamin A 3,000 mcg (10,000 unit) capsule Take 1 capsule (10,000 Units total) by mouth once a day. 90 capsule 1 5 11/13/19 25 Active cholecalciferol (VITAMIN D3) 1,250 mcg (50,000 unit) capsule Take 1 capsule (50,000 Units total) by mouth once a week. 12 capsule 5 08/20/19 25 Active zinc sulfate (ZINCATE) 50 mg zinc (220 mg) capsule Take 1 capsule (50 mg of elemental zinc total) by mouth once a day. 30 capsule 5 06/16/19 25 Active Active Problems Problem Noted Date Diagnosed Date Cirrhosis of liver 05/11/2024 Portal hypertension (CMS/HCC) 05/11/2024 Secondary esophageal varices without bleeding Moderate protein-calorie malnutrition 05/11/2024 Alcohol use disorder, severe, in sustained remis chiqui 05/11/2024 Encounter for pre-transplant evaluation for chronic liver disease 05/11/2024 Immunizations Immunization Administration Dates Next Due Influenza, Injectable, Quadrivalent, Preservativ e Free 02/12/2023 Social History Tobacco Use Types Packs/Day Years [...] on file Sexual Orientation Not on file Last Filed Vital Signs Vital Sign Reading [...] 8.5 oz) 05/11/2024 11:38 AM EST Height 175.3 cm (5' 9.02 ) 05/11/2024 8:38 AM ES T Body Mass Index 25.02 05/11/2024 8:38 AM EST Plan of Treatment Upcoming Encounters Date Type Department Care Team (Late st Contact Info) Description 06/11/2024 10:30 AM EDT Follow-Up [facility] [address] [place] [address] [phone] Nathan Ortiz MD [address] [place] [address] 06/11/2024 11:00 AM EDT Clinical Support [facility] [address] [place] [address] [phone] Procedures * Due to [place] state law, this organization might not be [...] Encounter for pre-transplant evaluation for liver transplant COMPREHENSIVE DRUG SCREEN, URINE Routine 05/11/2024 8:11 AM EST Encounter for pre-transplant evaluation for liver transplant SHELLY, TITER AND PATTERN Routine 8:02 AM EST Encounter for pre-transplant evaluation for liver transplant HISTOPLASMA ANTIBODY PANEL, CF & ID Routine 05/11/2024 8:02 AM EST Special screening examination for infectious diseases Encounter for pre-transplant evaluation for liver transplant ETHANOL Routine 05/11/2024 8:02 AM EST Encounter for pre-transplant evaluation for liver transplant FOREI-7-LELPRVYFNMM (AAT) PHENOTYPE Routine 05/11/2024 8:02 AM EST Encounter for pre-transplant evaluation for liver transplant AFP TUMOR MARKER Routine 05/11/2024 8:02 AM EST Encounter for pre-transplant evaluation for liver transplant SHELLY SCREEN, IFA, W/REFLEX TO TITER & PATTERN Routine 05/11/2024 8:02 AM EST Encounter for pre-transplant evaluation for liver transplant BILIRUBIN, DIRECT Routine 05/11/2024 8:0 2 AM EST Encounter for pre-transplant evaluation for liver transplant CYSTATIN C WITH GLOMERULAR FILTRATION RATE, ESTIMATED (EGFR)-[id number] Routine 05/11/2024 8:02 AM EST Encounter for pre-transplant evaluation for liver transplant MITOCHONDRIAL ANTIBODY W/REFLEX Routine 05/11/2024 8:02 AM EST Encounter for pre-transplant evaluation for liver transplant CBC AUTO DIFFERENTIAL Routine 05/11/2024 8:02 AM EST Encounter for pre-transplant evaluation for liver transplant LIPID PANEL Routine 05/11/2024 8:02 AM EST Encounter for pre-transplant evaluation for liver transplant CERULOPLASMIN Routine 05/11/2024 8:02 AM EST Encounter for pre-transplant evaluation for liver transplant COMPREHENSIVE METABOLIC PANEL Routine 05/11/2024 8:02 AM EST Encounter for pre-transplant evaluation for liver transplant CYTOMEGALOVIRUS ANTIBODY, IGG Routine 05/11/2024 8:02 AM EST Encounter for pre-transplant evaluation for liver transplant NIKHIL-RICHARDSON VIRUS VCA, IGG Routine 05/11/2024 8:02 AM EST Encounter for pre-transplant evaluation for liver transplant FERRITIN Routine 05/11/2024 8:02 AM EST Encounter for pre-transplant evaluation for liver transplant HEMOGLOBIN A1C Routine 05/11/2024 8:02 AM EST Encounter for pre-transplant evaluation for liver transplant HEPATITIS A ANTIBODY, TOTAL Routine 05/11/2024 8:02 AM EST Encounter for pre-transplant evaluation for liver transplant HEPATITIS B CORE ANTIBODY, TOTAL Routine 05/11/2024 8:02 AM EST Encounter for pre-transplant evaluation for liver transplant HEPATITIS B SURFACE ANTIGEN W/CONFIRMATION Routine 05/11/2024 8:02 AM EST Encounter for pre-transplant evaluation for liver transplant HEPATITIS B SURFACE ANTIBODY Routine 05/11/2024 8:02 AM EST Encounter for pre-transplant evaluation for liver transplant HEPATITIS C ANTIBODY W/REFLEX TO HCV RNA, QUANTITATIVE PCR Routine 05/11/2024 8:02 AM EST Encounter for pre-transplant evaluation for liver transplant HERPES SIMPLEX VIRUS 1&2 ANTIBODY, IGG Routine 05/11/2024 8:02 AM EST Encounter for pre-transplant evaluation for liver transplant IRON SATURATION Routine 05/11/2024 8:02 AM EST Encounter for pre-transplant evaluation for liver transplant MAGNESIUM Routine 05/11/2024 8:02 AM EST Encounter for pre-transplant evaluation for liver transplant MMR PANEL (MEASLES, MUMPS, RUBELLA), IGG Routine 05/11/2024 8:02 AM EST Encounter for pre-transplant evaluation for liver transplant PHOSPHATIDYLETHANOL-ARU [id number] Routine 05/11/2024 8:02 AM EST Encounter for pre-transplant evaluation for liver transplant PHOSPHORUS Routine 05/11/2024 8:02 AM EST Encounter for pre-transplant evaluation for liver transplant PROTEIN ELECTROPHORESIS W/REFLEX TO IMMUNOFIXATION, SERUM Routine 05/11/2024 8:02 AM EST Encounter for pre-transplant evaluation for liver transplant PROTIME-INR Routine 05/11/2024 8:02 AM EST Encounter for pre-transplant evaluation for liver transplant PTT Routine 05/11/2024 8:02 AM EST Encounter for pre-transplant evaluation for liver transplant QUANTIFERON-TB GOLD PLUS, 1 [id number] Routine 05/11/2024 8:02 AM EST Encounter for pre-transplant evaluation for liver transplant RPR (DIAGNOSIS) W/REFLEX TO TITER & TPPA [id number] Routine 05/11/2024 8:02 AM EST Encounter for pre-transplant evaluation for liver transplant SMOOTH MUSCLE ANTIBODY SCREEN W/REFLEX TO TITER Routine 05/11/2024 8:02 AM EST Encounter for pre-transplant evaluation for liver transplant TOXOPLASMA GONDII ANTIBODY, IGG Routine 05/11/2024 8:02 AM EST Encounter for pre-transplant evaluation for liver transplant TSH REFLEX FREE T4 Routine 05/11/2024 8: 02 AM EST Encounter for pre-transplant evaluation for liver transplant TYPE AND SCREEN Routine 05/11/2024 8:02 AM EST Encounter for pre-transplant evaluation for liver transplant VARICELLA ZOSTER ANTIBODY, IGG Routine 05/11/2024 8:02 AM EST Encounter for pre-transplant evaluation for liver transplant VITAMIN A (RETINOL) Routine 05/11/2024 8 :02 AM EST Encounter for pre-transplant evaluation for liver transplant VITAMIN D, 25-HYDROXY, TOTAL, IMMUNOASSAY Routine 05/11/2024 8:02 AM EST Encounter for pre-transplant evaluation for liver transplant ZINC, PLASMA/[id number] Routine 05/11/2024 8:02 AM EST Encounter for pre-transplant evaluation for liver transplant PSA Routine 05/11/2024 8:02 AM EST Encounter for pre-transplant evaluation for liver transplant LIVER PRE EXTERNAL PANEL Routine 04/16/2024 from Last 3 Months Results * Due to [place] state law, this organization might not be [...] obtain the completed interpretation. ? Workstation ID: [id number] Up-to-date CT equipment and radiation dose reduction techniques were employed. CTDIvol: 3.0 - 14.6 mGy. DLP: 1699 mGy-cm. ??The following accession numbers are related to this dose report [id number]: [id number] Narrative 05/14/2024 7:59 PM EST EXAMINATION: CT 3 [...] image 107 series 10. Resulting Agency Comment [id number] Procedure Note Christen Aviles MD - 05/14/2024 [...] 3. Cholelithiasis and choledocholithiasis. Punctate calculus seen [id number] series 4 within the distal CBD. Can [...] possible to obtain thecompleted interpretation. Workstation ID: [id number] Up-to-date CT equipment and radiation dose reduction techniques wereemployed. CTDIvol: 3.0 - 14.6 mGy. DLP: 1699 mGy-cm. The followingaccession numbers are related to this dose report [id number]: [id number] Yunior Pérez MD IM CT PROCEDURES Final Result * CT CHEST [...] obtain the completed interpretation. ? Workstation ID: [id number] Up-to-date CT equipment and radiation dose reduction techniques were employed. CTDIvol: 3.0 - 14.6 mGy. DLP: 1699 mGy-cm. ??The following accession numbers are related to this dose report [id number]: [id number] Narrative 05/17/2024 4:11 PM EST Indication: ??pre [...] vertebral disease. Bilateral gynecomastia. Resulting Agency Comment [id number] Procedure Note Sidney Delatorre MD PhD - [...] possible to obtain thecompleted interpretation. Workstation ID: [id number] Up-to-date CT equipment and radiation dose reduction techniques wereemployed. CTDIvol: 3.0 - 14.6 mGy. DLP: 1699 mGy-cm. The followingaccession numbers are related to this dose report [id number]: [id number] Yunior Pérez MD IMG CT PROCEDURES Final Result * TRANSTHORACIC ECHO [...] BSA 1.85 RIGHT ATRIAL PRESSURE 3 mmHg [facility] RV TISSUE DOPPLER S' 12.0 [...] Doppler. Myocardial deformation imaging was performed using [employer]. During the study the apical, parasternal, subcostal and suprasternal view was captured. Overall the study quality was adequate. Prior Study No prior study available for comparison. STRESS ECHO OVERALL FINDINGS Normal RV size and systolic function. No significant valvular disease identified. Yunior Pérez MD CV ECHO PROCEDURES Final Result * Comprehensive Drug Panel, Urine (05/11/2024 8:11 AM EST) [facility] Comprehensive Drug Screen Urine DRUGS DETECTED 05/11/2024 2:55 PM EST [employer] Comment: NICOTINE GABAPENTIN COTININE CAFFEINE TRAMADOL AND METABOLITE Urine Voided urine specimen / Unknown Non-Blood Collection / Unknown 05/11/2024 8:11 AM EST 05/11/2024 8:16 AM EST Narrative [facility] - 05/11/2024 2:55 PM EST [facility] Received Date: us Yunior Pérez MD LAB URINE ORDERABLES Fin al Result [employer] [place] [address] [facility] [address] Floor, [place] [address], [place] [phone] [facility] [address], [place] [address], [place] [phone] * (ABNORMAL) Cystatin C with Glomerular Filtration Rate, Estimated (eGFR) (05/11/2024 8:02 AM EST) Cystatin C 1.39(H) 0.52 - 1.23 mg/L 05/17/2024 12:21 PM EST [facility] ([place]) eGFR Non- 51(L) >=60 NA 05/17/2024 12:21 PM EST [facility] ([place]) Comment: ?REFERENCE RANGE:>=60 mL/min/1.73mE2 ? Blood Structure of peripheral vein / Unknown Venipuncture / Unknown 05/11/2024 8:02 AM EST 05/11/2024 8:14 AM EST Narrative [facility] ([place]) - 05/17/2024 12:21 PM EST [facility] Received Date: us Yunior Pérez MD LAB BLOOD ORDERABLES King ben Result - Final [facility] ([place]) [address] [place], [place] , [place] * (ABNORMAL) SHELLY, Titer and Pattern (05/11/2024 8:02 AM EST) SHELLY Titer 1 1:320(H) titer 05/16/2024 12:01 PM EST [employer] Comment: ?Reference Range ?<1:40 ?Negative ?1:40-1:80 ?Low Antibody Level ?>1:80 ?Elevated Antibody Level SHELLY Pattern 1 Nuclear, Homogeneo us(A) 05/16/2024 12:01 PM EST [employer] Comment: Homogeneous pattern is associated with systemic lupus erythematosus (SLE), drug-induced lupus and juvenile idiopathic arthritis. AC-1: Homogeneous International Consensus on SHELLY Patterns (https://doi.org/10.1515/ctkl-0727-8150) SHELLY Titer 2 1:320(H) titer 05/16/2024 12:01 PM EST [employer] Comment: ?Reference Range ?<1:40 ?Negative ?1:40-1:80 ?Low Antibody Level ?>1:80 ?Elevated Antibody Level SHELLY Pattern 2 Nuclear, Speckled( A) 05/16/2024 12:01 PM EST [employer] Comment: Speckled pattern is associated with mixed connective tissue disease (MCTD), systemic lupus erythematosus (SLE), Sjogren's syndrome, dermatomyositis, and systemic sclerosis/polymyositis overlap. AC-2,4,5,29: Speckled International Consensus on SHELLY Patterns (https://doi.org/10.1515/bvtw-3285-2629) Blood Structure of peripheral vein / Unknown Venipuncture / Unknown 05/11/2024 8:02 AM EST 05/11/2024 8:15 AM EST Narrative [facility] - 05/16/2024 12:01 PM EST [facility] Received Date: Yunior Pérez MD LAB BLOOD ORDERABLES Fin al Result [facility] [address] [facility] 3[address] Floor, [place] [address], [facility] [address] [facility] [address] Floor, [place] [address], * Phosphatidylethanol (PEth) (05/11/2024 8:02 AM EST) [...] LABORATORY Comment: Authorized individuals can access the [facility] Enhanced Report with an [facility] Connect account using the following link. Your local lab can assist you in obtaining the patient report if you don't have a Connect account. [email or web address] PEth Interpretation See Comment 04/22 5:33 PM [...] developed and its performance characteristics determined by [facility]. It has not been cleared or approved by the U.S. Food and Drug Administration. This test was performed in a CLIA-certified laboratory and is intended for clinical purposes. Performed By: [facility] [address] [place] [address] Supervisor Pigment Making: Yusuf Lomas MD, PhD CLIA Number: [id number] Blood Structure of peripheral vein / Unknown Venipuncture / Unknown 05/11/2024 8:02 AM EST 05/11/2024 8:15 AM EST Yunior Préez MD LAB BLOOD ORDERABLES Fin al Result [facility] [address] [place] [address], * Ouvyl-5-Xcqgasjlqjv (AAT) Phenotype (05/11/2024 8:02 AM EST) Alpha 1 Antitrypsin Phenotype SEE NOTE 05/15/2024 1:10 PM EST [facility] MENDEZ Comment: THIS PATIENT'S VHCKC-2-DKBGDISGIED PHENOTYPE IS PI*MM. 90% of normal individuals have the MM phenotype, with normal quantitative AAT levels. Many phenotypic patterns have been described, including deficiency states with F, S, Z, or other alleles. As a general estimation, compared to M allele of 100% of normal C-7-Nwcjhhqegtt protein, the S allele produces approximately 60% and the Z allele 20%. For example, an MS phenotype would have about 80% of normal Y-3-Gunffhcljjg protein level, a 50% contribution from the M allele and 30% from the S allele. A ZZ phenotype would have about 20% of normal levels, a 10% contribution from each Z gene. The F allele has normal V-1-Dnqwnrsirxz levels, but the kinetics of elastase inhibition [...] 8:02 AM EST 05/11/2024 8:13 AM EST [facility] - 05/15/2024 1:10 PM EST [facility] Received Date: us Yunior Pérez MD LAB BLOOD ORDERABLES Fin al Result [facility] [address] [facility] [address], [place] [address], [place] [phone] [facility] [address] [place] [address], [place] [phone] * (ABNORMAL) MMR Panel, IgG (05/11/2024 8:02 AM EST) Pathologist [facility] Measles Antibody (IgG), Immune Status <13.50(L) AU/mL 05/11/2024 5:16 PM EST [employer] Comment: AU/mL ?Interpretation ----- ? <13.50 ? Not consistent with immunity 13.50-16.49 ?Equivocal >16.49 ? Consistent with immunity The presence of measles IgG suggests immunization or past or current infection with measles virus. For additional information, please refer to http://Clip.Recorded Future/faq/ONN213 (This link is being provided for informational/ educational purposes only.) Mumps Antibody (IgG), Immune Status <9.00(L) AU/mL 05/11/2024 5:16 PM EST [employer] Comment: AU/mL ? Interpretation ------- ? <9.00 ? Not consistent with immunity 9.00-10.99 ?Equivocal >10.99 ?Consistent with immunity The presence of mumps IgG antibody suggests immunization or past or current infection with mumps virus. Rubella Antibody (IgG), Immune Status <0.90(L) Index 05/11/2024 5:16 PM EST [employer] Comment: ?Index ?Interpretation ?----- ?<0.90 ?Not consistent with immunity ?0.90-0.99 ?Equivocal ?> or = 1.00 ?Consistent with immunity The presence of rubella IgG antibody suggests immunization or past or current infection with rubella virus. Blood Structure of peripheral vein / Unknown Venipuncture / Unknown 05/11/2024 8:02 AM EST 05/11/2024 8:15 AM EST [facility] - 05/11/2024 5:16 PM EST [facility] Received Date: Yunior Pérez MD LAB BLOOD ORDERABLES Fin al Result [facility] [address] [facility] [address], [place] [address], [facility] [address] [facility] [address], [place] [address], * (ABNORMAL) Herpes Simplex Virus 1&2, IgG (05/11/2024 8:02 AM EST) HSV 1 IgG Type Specific Ab <0.90 index 05/11/2024 9:20 PM EST [employer] HSV 2 IgG Type Specific Ab 1.66(H) index 05/11/2024 9:20 PM EST [employer] Comment: ?Index ?Interpretation ?----- ?<0.90 ?Negative ?0.90-1.09 ?Equivocal ?>1.09 ?Positive Low HSV-2 IgG positive results (index values between 1.10-3.00) may represent false positive results. CDC 202 guidelines recommend confirmatory testing of samples with low-positive HSV-2 IgG results. If clinically indicated, consider adding on HSV-2 IgG Inhibition, by contacting [employer] [facility] [employer]. For additional information, please refer to: https://[email or web address]/healthcare- professionals/fnuufaut-prifhsgxr-jleypt/faq/faq73 (This link is being provided for informational/ [...] screening. For additional information, please refer to http://education.Recorded Future/faq/DKI529 (This link is being provided for informational/ educational purposes only.) ?? Blood Structure of peripheral vein / Unknown Venipuncture / Unknown 05/11/2024 8:02 AM EST 05/11/2024 8:13 AM EST [facility] - 05/11/2024 9:20 PM EST [facility] Received Date: Yunior Pérez MD LAB BLOOD ORDERABLES Fin al Result [facility] [place] [address] [facility] 3rd Floor, [place] [address], [facility] [address] [facility] 3rd Floor, [place] [address], * Protein Electrophoresis w/Reflex to Immunofixation, Serum (05/11/2024 8:02 AM EST) Pathologist [facility] Protein, Total 6.9 6.1 - 8.1 g/dL 05/11/2024 10:39 PM EST [facility] Albumin 3.8 3.8 - 4.8 g/dL 05/11/2024 10:39 PM EST [facility] Alpha 1 Globulin 0.3 0.2 - 0.3 g/dL 05/11/2024 10:39 PM EST [facility] Alpha 2 Globulin 0.6 0.5 - 0.9 g/dL 05/11/2024 10:39 PM EST [facility] Beta 1 Globulin 0.5 0.4 - 0.6 g/dL 05/11/2024 10:39 PM EST [facility] Beta 2 Globulin 0.3 0.2 - 0.5 g/dL 05/11/2024 10:39 PM EST [facility] Gamma Globulin 1.4 0.8 - 1.7 g/dL 05/11/2024 10:39 PM EST [facility] Interpretation See Comments 05/11/2024 10:39 PM EST [facility] Comment: Normal Serum Protein Electrophoresis Pattern. No abnormal protein bands (M-protein) detected. Blood Structure of peripheral vein / Unknown Venipuncture / Unknown 05/11/2024 8:02 AM EST 05/11/2024 8:14 AM EST [facility] [place] - 05/11/2024 10:39 PM EST [facility] Received Date: Yunior Pérez MD LAB BLOOD ORDERABLES Fin al Result [address]rd Floor, [place] [address], [facility] [address], [place] [address], * RPR (Diagnosis) w/Reflex to Titer & TPPA Confirm (05/11/2024 8:02 AM EST) RPR W/Refl Titer NON-REACT COLLINS NON-REACT COLLINS 05/11/2024 1:09 PM EST [facility] Blood Structure of peripheral vein / Unknown Venipuncture / Unknown 05/11/2024 8:02 AM EST 05/11/2024 8:15 AM EST Narrative [facility] [place] - 05/11/2024 1:09 PM EST [facility] Received Date:[id number] us Yunior Pérez MD LAB BLOOD ORDERABLES Fin al Result [facility] [place] [address] [facility] 3rd Floor, [place] [address], [place] [phone] [facility] [address] [facility] [address]rd Floor, [place] [address], [place] [phone] * (ABNORMAL) Iron Saturation (05/11/2024 8:02 AM EST) Iron Saturation 6(L) 20 - 50 % 8:57 AM EST [facility] Iron 25(L) 45 - 160 ug/dL 05/11/2024 8:57 AM EST [facility] Transferrin 316 200 - 360 mg/dL 05/11/2024 8:57 AM EST [facility] Total Iron Binding Capacity 395 255 - 450 ug/dL 05/11/2024 8:57 AM EST [facility] Blood Structure of peripheral vein / Unknown Venipuncture / Unknown 05/11/2024 8:02 AM EST 05/11/2024 8:15 AM EST us Yunior Pérez MD LAB BLOOD ORDERABLES Fin al Result [facility] [address] [place] [address], * TSH Reflex Free T4 (05/11/2024 8:02 AM EST) TSH 2.130 0.280 - 3.890 uIU/mL 05/11/2024 8:57 AM EST [facility] Blood Structure of peripheral vein / Unknown Venipuncture / Unknown 05/11/2024 8:02 AM EST 05/11/2024 8:15 AM EST Yunior Pérez MD LAB BLOOD ORDERABLES Fin al Result [facility] [address] [place] [address], [place] * QuantiFERON-TB Gold Plus, 1 Tube (05/11/2024 8:02 AM EST) Pathologist [facility] QuantiFERON-TB Gold Plus NEGATIVE NEGATIVE 05/14/2024 2:04 PM EST [facility] Comment: Negative test result. M. tuberculosis complex infection unlikely. NIL 0.01 IU/mL 05/14/2024 2:04 PM EST [facility] Mitogen-NIL 9.32 IU/mL 05/14/2024 2:04 PM EST [facility] TB1-NIL 0.00 IU/mL 05/14/2024 2:04 PM EST [facility] TB2-NIL 0.01 IU/mL 05/14/2024 2:04 PM EST [facility] Comment: The Nil tube value reflects the [...] T-lymphocytes. For additional information, please refer to https://education.Kewego.ITYZ/faq/PGW583 (This link is being provided for informational/ educational purposes only.) Blood Structure of peripheral vein / Unknown Venipuncture / Unknown 05/11/2024 8:02 AM EST 05/11/2024 8:10 AM EST Narrative [facility] [place] - 05/14/2024 2:04 PM EST [facility] Received Date: Yunior Pérez MD LAB BLOOD ORDERABLES Fin al Result [facility] [address] [facility] 3rd Floor, [place] [address], [place] [phone] [facility] [address] [place] [address] Floor, [place] [address], [place] [phone] * (ABNORMAL) CBC Auto Differential (05/11/2024 8:02 [...] % 65.1 % 05/11/2024 8:22 AM EST [facility] Immature Grans % 0.3 0.0 - 0.9 % 05/11/2024 8:22 AM EST [facility] Lymphocyte % 19.0 % 05/11/2024 8:22 AM EST [facility] Monocyte % 12.6 % 05/11/2024 8:22 AM EST [email or web address] Eosinophil % 2.0 % 05/11/2024 8:22 AM EST [email or web address] Basophil % 1.0 % 05/11/2024 8:22 AM EST [facility] Neutrophil # 5.60 1.50 - 7.80 10*3/uL 05/11/2024 8:22 AM EST [email or web address] Immature Grans # 0.03 <=0.03 10*3/uL 05/11/2024 8:22 AM EST [facility] Lymphocyte # 1.60 0.85 - 3.90 10*3/uL 05/11/2024 8:22 AM EST [email or web address] Monocyte # 1.10(H) 0.20 - 0.95 10*3/uL 05/11/2024 8:22 AM EST [facility] Eosinophil # 0.20 0.02 - 0.50 10*3/uL 05/11/2024 8:22 AM EST [facility] Basophil # 0.10 0.00 - 0.20 10*3/uL 05/11/2024 8:22 AM EST [facility] nRBC % 0.0 /100 WBCs 05/11/2024 8:22 AM EST [facility] nRBC # <0.01 <0.01 10*3/uL 05/11/2024 8:22 AM EST [facility] Blood Structure of peripheral vein / Unknown Venipuncture / Unknown 05/11/2024 8:02 AM EST 05/11/2024 8:15 AM EST us Yunior Pérez MD LAB BLOOD ORDERABLES Fin al Result [facility] [address] [place] [address], [place] * Smooth Muscle Antibody Screen w/Reflex to Titer (05/11/2024 8:02 AM EST) Smooth Muscle AB Screen NEGATIVE NEGATIVE 05/14/2024 3:03 PM EST [facility] Comment: The specimen was negative for cytoplasmic antibodies, however additional staining was observed suggesting the presence of Antinuclear Antibodies. Consider requesting order code 249, SHELLY Screen, IFA with Reflex to Titer and Pattern, or order code [id number], SHELLY Screen, IFA w/reflex Titer/Pattern, and Reflex to Multiplex 11 Ab Dickey, if clinically indicated. Blood Structure of peripheral vein / Unknown Venipuncture / Unknown 05/11/2024 8:02 AM EST 05/11/2024 8:15 AM EST Narrative [facility] [place] - 05/14/2024 3:03 PM EST [facility] Received Date: us Yunior Pérez MD LAB BLOOD ORDERABLES Fin al Result Performing Organization Address City/[facility]/ZIP Co de Phone Number [facility] [place] [address] [facility] 3rd Floor, [place] [address], [place] [phone] [facility] [address] [facility] 3rd Floor, [place] [address], [place] [phone] * Hepatitis C Antibody w/Reflex to PCR (05/11/2024 8:02 AM EST) Hepatitis C Antibody NON-REACT COLLINS NON-REACT COLLINS 05/11/2024 11:44 AM EST [facility] Comment: HCV antibody was non-reactive. There is no laboratory evidence of HCV infection. In most cases, no further action is required. However, if recent HCV exposure is suspected, a test for HCV RNA (test code 28544) is suggested. For additional information please refer to http://Clip.Dugun.com/faq/FVD44r7 (This link is being provided for informational/ educational purposes only.) Blood Structure of peripheral vein / Unknown Venipuncture / Unknown 05/11/2024 8:02 AM EST 05/11/2024 8:15 AM EST Narrative [facility] [place] - 05/11/2024 11:44 AM EST [facility] Received Date:[id number] us Yunior Pérez MD LAB BLOOD ORDERABLES Fin al Result [facility] [place] [address], [place] [address], [place] [phone] [facility] [address], [place] [address], [place] [phone] * Hepatitis A Antibody, Total (05/11/2024 8:02 AM EST) Hepatitis A Ab, Total NON-REACT COLLINS NON-REACT COLLINS 05/11/2024 11:44 AM EST [facility] Comment: For additional information, please refer to http://Clip.Dugun.com/faq/PJD378 (This link is being provided for informational/ educational purposes only.) Blood Structure of peripheral vein / Unknown Venipuncture / Unknown 05/11/2024 8:02 AM EST 05/11/2024 8:15 AM EST Narrative [facility] [place] - 05/11/2024 11:44 AM EST [facility] Received Date:[id number] us Yunior Pérez MD LAB BLOOD ORDERABLES Fin al Result [facility] [address] [facility] 3rd Floor, [place] [address], [place] [phone] [facility] [address], [place] [address], [place] [phone] * Histoplasma Antibody Panel, CF & ID (05/11/2024 8:02 AM EST) Histoplasma capsulatum yeast phase Ab <1:8 <1:8 NA 05/17/2024 12:21 PM EST [employer] (NIEVES) Histoplasma capsulatum mycelial phase Ab <1:8 <1:8 NA 05/17/2024 12:21 PM EST [employer] ([facility]EVES) Comment: Interpretive Criteria: ?<1:8 - Antibody Not [...] analytical performance characteristics have been [facility] [place], [place]. It has not been cleared or approved by the FDA. This assay has been validated pursuant to the CLIA regulations and is used for clinical purposes. Histoplasma capsulatum M Antibody Negative Negative 05/17/2024 12:21 PM EST [employer] (NIEVES) Histoplasma capsulatum H Antibody Negative Negative 05/17/2024 12:21 PM EST [employer] ([facility]EVES) Comment: This immunodiffusion assay is highly specific [...] 8:02 AM EST 05/11/2024 8:14 AM EST [facility] ([place]) - 05/17/2024 12:21 PM EST [facility] Received Date:[id number] Elizabeth Gonzalez MD LAB BLOOD ORDERABLES Final Res ult [facility] ([place]) [address] [place] [address], [place] * (ABNORMAL) SHELLY Screen, Reflex to Titer, IFA (05/11/2024 8:02 AM EST) SHELLY Screen, IFA POSITIVE (A) NEGATIVE 05/16/2024 12:00 PM EST [employer] Comment: SHELLY IFA is a first line screen for detecting the presence of up to approximately 150 autoantibodies in various autoimmune diseases. A positive SHELLY IFA result is suggestive of autoimmune disease and reflexes to titer and pattern. Further laboratory testing may be considered if clinically indicated. For additional information, please refer to http://education.Recorded Future/faq/RXO517 (This link is being provided for informational/ educational purposes only.) ?? Blood Structure of peripheral vein / Unknown Venipuncture / Unknown 05/11/2024 8:02 AM EST 05/11/2024 8:15 AM EST [facility] - 05/16/2024 12:00 PM EST [facility] Received Date:[id number] Yunior Pérez MD LAB BLOOD ORDERABLES Fin al Result Performing Organization Address City/[facility]/ZIP Co de Phone Number [facility] [address] [facility] 3rd Floor, [place] [address], [facility] [address] [facility] [address] Floor, [place] [address], [place] [phone] * Ceruloplasmin (05/11/2024 8:02 AM EST) Pathologist [facility] Ceruloplasmin 19 14 - 30 mg/dL 05/13/2024 1:07 AM EST [facility] Blood Structure of peripheral vein / Unknown Venipuncture / Unknown 05/11/2024 8:02 AM EST 05/11/2024 8:15 AM EST Narrative [facility] [place] - 05/13/2024 1:07 AM EST [facility] Received Date:[id number] us Yunior Pérez MD LAB BLOOD ORDERABLES Fin al Result Performing Organization Address City/[facility]/ZIP Co de Phone Number [facility] [place] [address] [facility] [address]rd Floor, [place] [address], [place] [phone] [facility] [address] [facility] 3rd Floor, [place] [address], [place] [phone] * (ABNORMAL) Zinc (05/11/2024 8:02 AM EST) Zinc 45(L) 60 - 130 mcg/dL 05/15/2024 11:53 AM EST [facility] ([place]) Comment: This test was developed and its analytical performance characteristics have been determined by [employer] [place], [place]. It has not been cleared or approved by the U.S. Food and Drug Administration. This assay has been validated pursuant to the CLIA regulations and is used for clinical purposes. Blood Structure of peripheral vein / Unknown Venipuncture / Unknown 05/11/2024 8:02 AM EST 05/11/2024 8:15 AM EST [facility]) - 05/15/2024 11:53 AM EST [facility] Received Date:[id number] us Yunior Pérez MD LAB BLOOD ORDERABLES Fin al Result Performing Organization Address City/[facility]/ZIP Co de Phone Number [facility] ([place]) [address] [place], [place] , [place] * (ABNORMAL) Vitamin A (Retinol) (05/11/2024 8:02 AM EST) Vitamin A (Retinol) 15(L) 38 - 98 mcg/dL 05/14/2024 11:11 PM EST [facility] ([place]) Comment: Vitamin supplementation within 24 hours prior to blood draw may affect the accuracy of the results. This test was developed and its analytical performance characteristics have been determined by [facility] [place] It has not been cleared or approved by the U.S. Food and Drug Administration. This assay has been validated pursuant to the CLIA regulations and is used for clinical purposes. Blood Structure of peripheral vein / Unknown Venipuncture / Unknown 05/11/2024 8:02 AM EST 05/11/2024 8:10 AM EST Narrative [facility]) - 05/14/2024 11:11 PM EST [facility] Received Date:[id number] Yunior Pérez MD LAB BLOOD ORDERABLES Fin al Result [facility]) [address] [place] [address], [place] * (ABNORMAL) AFP Tumor Marker (05/11/2024 8:02 AM EST) Pathologist [facility] Alpha Fetoprotein, Tumor Marker 7.4(H) <6.1 ng/mL 05/14/2024 1:16 PM EST [facility] Comment: This test was performed using the Bakari Paco chemiluminescent method. Values obtained from different assay methods cannot be used interchangeably. AFP levels, regardless of value, should not be interpreted as absolute evidence of the presence or absence of disease. Blood Structure of peripheral vein / Unknown Venipuncture / Unknown 05/11/2024 8:02 AM EST 05/11/2024 8:15 AM EST Narrative [facility] - 05/14/2024 1:16 PM EST [facility] Received Date:[id number] Yunior Pérez MD LAB BLOOD ORDERABLES Fin al Result Performing Organization Address City/[facility]/ZIP Co de Phone Number [facility] [place] [address] [facility] 3rd Floor, [place] [address], [place] [phone] [facility] [address] [facility] [address]rd Floor, [place] [address], [place] [phone] * (ABNORMAL) Nikhil-Richardson Virus VCA, IgG (05/11/2024 8:02 AM EST) EBV Viral Capsid Ag Ab (IGG) >750.00(H ) U/mL 05/11/2024 5:16 PM EST [employer] Comment: ? U/mL ? Interpretation ? ---- ? <18.00 ? Negative ? 18.00-21.99 ?Equivocal ? >21.99 ? Positive Blood Structure of peripheral vein / Unknown Venipuncture / Unknown 05/11/2024 8:02 AM EST 05/11/2024 8:15 AM EST [facility] - 05/11/2024 5:16 PM EST [facility] Received Date: Yunior Pérez MD LAB BLOOD ORDERABLES Fin al Result [facility] [place] [address] [facility] 3rd Floor, [place] [address], [place] [phone] [facility] [address], [place] [address], * Hepatitis B Core Antibody, Total (05/11/2024 8:02 AM EST) Hepatitis B Core Ab Total NON-REACT COLLINS NON-REACT COLLINS 05/11/2024 11:44 AM EST [employer] Comment: For additional information, please refer to http://education.Dugun.com/faq/UJY002 (This link is being provided for informational/ educational purposes only.) Blood Structure of peripheral vein / Unknown Venipuncture / Unknown 05/11/2024 8:02 AM EST 05/11/2024 8:15 AM EST Narrative [facility] [place] - 05/11/2024 11:44 AM EST [facility] Received Date:[id number] us Yuniro Pérez MD LAB BLOOD ORDERABLES Fin al Result [facility] [place] [address] [facility] 3rd Floor, [place] [address], [facility] [address] [facility] [address], [place] [address], * (ABNORMAL) Vitamin D, 25-Hydroxy, Total, Immunoassay (05/11/2024 8:02 AM EST) [facility] Calcidiol+ercalc idiol 13(L) 30 - 100 ng/mL 05/11/2024 11:52 AM EST [employer] Comment: Vitamin D Status ? 25-OH Vitamin D: Deficiency: ?<20 ng/mL Insufficiency: ? 20 - 29 ng/mL Optimal: ? > or = 30 ng/mL For 25-OH Vitamin D testing on patients on D2-supplementation and patients for whom quantitation of D2 and D3 fractions is required, the QuestAssureD() 25-OH VIT D, (D2,D3), LC/MS/MS is recommended: order code [id number] (patients >2yrs). See Note 1 Note 1 For additional information, please refer to http://education.Afoundria.ITYZ/faq/PLZ575 (This link is being provided for informational/ educational purposes only.) Blood Structure of peripheral vein / Unknown Venipuncture / Unknown 05/11/2024 8:02 AM EST 05/11/2024 8:15 AM EST Narrative [facility] [place] - 05/11/2024 11:52 AM EST [facility] Received Date:[id number] us Yunior Pérez MD LAB BLOOD ORDERABLES Fin al Result Performing Organization Address City/[facility]/ZIP Co de Phone Number [facility] [address], [place] [address], [facility] [address], [place] [address], * Mitochondrial Antibody w/Reflex (05/11/2024 8:02 AM EST) [facility] Mitochondrial Ab Screen NEGATIVE NEGATIVE 05/14/2024 3:03 PM EST [facility] Comment: The specimen was negative for cytoplasmic antibodies, however additional staining was observed suggesting the presence of Antinuclear Antibodies. Consider requesting order code 249, SHELLY Screen, IFA with Reflex to Titer and Pattern, or order code [id number], SHELLY Screen, IFA w/reflex Titer/Pattern, and Reflex to Multiplex 11 Ab Dickey, if clinically indicated. Blood Structure of peripheral vein / Unknown Venipuncture / Unknown 05/11/2024 8:02 AM EST 05/11/2024 8:13 AM EST Narrative [facility] - 05/14/2024 3:03 PM EST [facility] Received Date: us Yunior Pérez MD LAB BLOOD ORDERABLES Fin al Result Performing Organization Address City/[facility] Co de Phone Number [facility] [address], [place] [address], [facility] [address], [place] [address], * Toxoplasma gondii Antibody, IgG (05/11/2024 8:02 AM EST) [facility] Toxoplasma Ab IgG <7.20 IU/mL 05/11/2024 9:20 PM EST [facility] Comment: ? IU/mL ?Interpretation ? ------ ? <7.20 ?Negative ? 7.20-8.79 ?Equivocal ? >8.79 ?Positive Blood Structure of peripheral vein / Unknown Venipuncture / Unknown 05/11/2024 8:02 AM EST 05/11/2024 8:13 AM EST [facility] - 05/11/2024 9:20 PM EST [facility] Received Date: us Yunior Pérez MD LAB BLOOD ORDERABLES Fin al Result Performing Organization Address [facility] [[email or web address]] de Phone Number [facility] [address], [place] [address], [facility] [address], [place] [address], * (ABNORMAL) Hepatitis B Surface Antibody (05/11/2024 8:02 AM EST) Hepatitis B Surface Ab Immunity, Qn <5(L) > OR = 10 mIU/mL 05/11/2024 11:44 AM EST [employer] Comment: PATIENT DOES NOT HAVE IMMUNITY TO HEPATITIS B VIRUS. For additional information, please refer to http://education.Dugun.com/faq/FJT456 (This link is being provided for informational/ educational purposes only). Blood Structure of peripheral vein / Unknown Venipuncture / Unknown 05/11/2024 8:02 AM EST 05/11/2024 8:15 AM EST Narrative [facility] - 05/11/2024 11:44 AM EST [facility] Received Date:[id number] us Yunior Pérez MD LAB BLOOD ORDERABLES Fin al Result Performing Organization Address [facility] Co de Phone Number [facility] [place] [address], [place] [address], [facility] [address], [place] [address], * Hepatitis B Surface Antigen w/Confirmation (05/11/2024 8:02 AM EST) Hepatitis B Surface Antigen NON-REACT COLLINS NON-REACT COLLINS 05/11/2024 11:44 AM EST [employer] Comment: For additional information, please refer to http://education.Dugun.com/faq/HTH072 (This link is being provided for informational/ educational purposes only.) Blood Structure of peripheral vein / Unknown Venipuncture / Unknown 05/11/2024 8:02 AM EST 05/11/2024 8:15 AM EST Narrative [facility] - 05/11/2024 11:44 AM EST [facility] Received Date: Yunior Pérez MD LAB BLOOD ORDERABLES Fin al Result [facility] [place] [address], [place] [address], [facility] [address], [place] [address], * (ABNORMAL) Cytomegalovirus Antibody, IgG (05/11/2024 8:02 AM EST) Pathologist [facility] Cytomegalovirus Antibody (IgG) 6.00(H) U/mL 05/12/2024 4:15 AM EST [employer] Comment: ? U/mL ? Interpretation ? ----- ? <0.60 ? Negative ? 0.60-0.69 ? Equivocal ? > or = 0.70 ?? Positive A positive result indicates that the patient has antibody to CMV. It does not differentiate between an active or past infection. Blood Structure of peripheral vein / Unknown Venipuncture / Unknown 05/11/2024 8:02 AM EST 05/11/2024 8:15 AM EST Narrative [facility] [place] - 05/12/2024 4:15 AM EST [facility] Received Date:[id number] us Yunior Pérez MD LAB BLOOD ORDERABLES Fin al Result Performing Organization Address [facility]/State/[facility] Co de Phone Number [facility] [address] [facility] [address], [place] [address], [facility] [address], [place] [address], [place] [phone] * (ABNORMAL) PTT (05/11/2024 8:02 AM EST) aPTT 33.2(H) 23.0 - 32.0 Seconds 05/11/2024 9:04 AM EST [facility] Comment: Current PTT reagent is not sensitive to detect all Lupus Anticoagulant (LA) Inhibitor Cases. ?? If a LA is suspected, please order a Lupus Anticoagulation w/ Reflex Test which is performed at [facility] in [place], [place]. Blood Structure of peripheral vein / Unknown Venipuncture / Unknown 05/11/2024 8:02 AM EST 05/11/2024 8:13 AM EST us Yunior Pérez MD LAB BLOOD ORDERABLES Fin al Result Performing Organization Address [facility] Co de Phone Number [facility] [address] [place] [address], * Protime-INR (05/11/2024 8:02 AM EST) PT 11.9 9.6 - 12.4 Seconds 05/11/2024 9:04 AM EST [facility] INR 1.1 0.9 - 1.1 05/11/2024 9:04 AM EST [facility] Comment:The optimal therapeu tic INR range for patients treated with Vitamin K antagonists (VKAS, e.g., Warfarin) is 2.0 to 3.5. Discuss the desired range with your doctor/care team. Blood Structure of peripheral vein / Unknown Venipuncture / Unknown 05/11/2024 8:02 AM EST 05/11/2024 8:13 AM EST Yunior Pérez MD LAB BLOOD ORDERABLES Fin al Result Performing Organization Address [facility] de Phone Number [facility] [address] [place] [address], * Type and Screen (05/11/2024 8:02 AM [...] 8:02 AM EST 05/11/2024 8:06 AM EST us Yunior Pérez MD LAB BLOOD BANK TEST ORDSkyla STORM Edited Result - Final BLOOD BANK INFCE [address] [place] [address], * Varicella Zoster Antibody, IgG (05/11/2024 8:02 AM EST) Varicella Zoster Virus Antibody 2.40 S/CO 05/11/2024 5:07 PM EST [employer] Comment: ?Signal to Cut-off ? S/CO ?Interpretation [...] EST 05/11/2024 8:13 AM EST Narrative [facility] - 05/11/2024 5:07 PM EST [facility] Received Date:[id number] Yunior Pérez MD LAB BLOOD ORDERABLES Fin al Result [facility] [address] [place] [address] 3rd Floor, [place] [address], [place] [phone] [facility] [address], [place] [address], [place] [phone] * PSA (05/11/2024 8:02 AM EST) PSA 0.04 <=4.00 ng/mL 05/11/2024 8:53 AM EST [facility] Comment: The total PSA [...] MD LAB BLOOD ORDERABLES Fin al Result [facility] [address] [place] [address], [place] * Phosphorus (05/11/2024 8:02 AM EST) Phosphorus 3.2 2.5 - 4.5 mg/dL 05/11/2024 8:57 AM EST [facility] Blood Structure of peripheral vein / Unknown Venipuncture / Unknown 05/11/2024 8:02 AM EST 05/11/2024 8:15 AM EST us Yunior éPrez MD LAB BLOOD ORDERABLES Fin al Result [facility] [address] [place] [address], [place] * Magnesium (05/11/2024 8:02 AM EST) MG 1.9 1.6 - 2.4 mg/dL 05/11/2024 8:57 AM EST [facility] Blood Structure of peripheral vein / Unknown Venipuncture / Unknown 05/11/2024 8:02 AM EST 05/11/2024 8:15 AM EST Yunior Pérez MD LAB BLOOD ORDERABLES Fin al Result [facility] [address] [place] [address], * Hemoglobin A1c (05/11/2024 8:02 AM EST) Hemoglobin A1C 4.7 <5.7 % of total Hgb 05/12/2024 10:03 AM EST [employer] Comment: For the purpose of screening for the presence of diabetes: <5.7% ? Consistent with the absence of diabetes 5.7-6.4% ?Consistent with increased risk for diabetes ?(prediabetes) > or =6.5% ??Consistent with diabetes This assay result is consistent with a decreased risk of diabetes. Currently, no consensus exists regarding use of hemoglobin A1c for diagnosis of diabetes in children. According to [place] [employer] (ADA) guidelines, hemoglobin A1c <7.0% represents optimal control in non- diabetic patients. Different metrics may apply to specific patient populations. Standards of Medical Care in Diabetes(ADA). ?? eAG (MG/DL) 88 mg/dL 05/12/2024 10:03 AM EST [employer] eAG (MMOL/L) 4.9 mmol/L 05/12/2024 10:03 AM [facility] Blood Structure of peripheral vein / Unknown Venipuncture / Unknown 05/11/2024 8:02 AM EST 05/11/2024 8:15 AM EST Narrative [facility] - 05/12/2024 10:03 AM EST [facility] Received Date:[id number] Yunior Pérez MD LAB BLOOD ORDERABLES Fin al Result [facility] [address] [facility] [address], [place] [address], [place] [phone] [email or web address] [address] [facility] [address], [place] [address], [place] [phone] * Ferritin (05/11/2024 8:02 AM EST) Ferritin 44.9 23.0 - 336.0 ng/mL 05/11/2024 8:57 AM EST [facility] Blood Structure of peripheral vein / Unknown Venipuncture / Unknown 05/11/2024 8:02 AM EST 05/11/2024 8:15 AM EST us Yunior Pérez MD LAB BLOOD ORDERABLES Fin al Result Performing Organization Address City/[facility]/ZIP Co de Phone Number [facility] [address] [place] [address], [place] * (ABNORMAL) Bilirubin, Direct (05/11/2024 8:02 AM EST) Bilirubin, Direct 0.8(H) <=0.4 mg/dL 05/11/2024 8:57 AM EST [facility] Blood Structure of peripheral vein / Unknown Venipuncture / Unknown 05/11/2024 8:02 AM EST 05/11/2024 8:15 AM EST Yunior Pérez MD LAB BLOOD ORDERABLES Fin al Result [facility] [address] [place] [address], [place] * Ethanol (05/11/2024 8:02 AM EST) Ethanol <10 <10 mg/dL 05/11/2024 8:53 AM EST [facility] Blood Structure of peripheral vein / Unknown Venipuncture / Unknown 05/11/2024 8:02 AM EST 05/11/2024 8:11 AM EST Yunior Pérez MD LAB BLOOD ORDERABLES Fin al Result [facility] [address] [place] [address], * (ABNORMAL) Lipid panel (05/11/2024 8:02 AM EST) Cholesterol 142 <=199 mg/dL 05/11/2024 8:57 AM EST [facility] Triglycerides 82 <=149 mg/dL 05/11/2024 8:57 AM EST [facility] Cholesterol, HDL 71(H) 40 - 59 mg/dL 05/11/2024 8:57 AM EST [facility] Cholesterol, Non-HDL 71 mg/dL 05/11/2024 8:57 AM EST [facility] LDL Cholesterol 55 <100 mg/dL 05/11/2024 8:57 AM EST [facility] VLDL 16.4 mg/dL 05/11/2024 8:57 AM EST [facility] Cholesterol/HDL Ratio 2.0 <5.0 05/11/2024 8:57 AM EST [facility] Blood Structure of peripheral vein / Unknown Venipuncture / Unknown 05/11/2024 8:02 AM EST 05/11/2024 8:15 AM EST Narrative [facility] - 05/11/2024 8:57 AM EST Adult Treatment Panel III Guidelines of NCEP 2000 ? Category: ? Total Cholesterol (mg/dL) ?Desirable [...] MD LAB BLOOD ORDERABLES Fin al Result [facility] [address] [place] [address], * (ABNORMAL) Comprehensive Metabolic Panel (05/11/2024 8:02 [...] 5 - 15 05/11/2024 8:57 AM EST [facility] Glucose 105(H) 65 - 99 mg/dL 05/11/2024 8:57 AM EST [email or web address] Creatinine 1.16 0.60 - 1.30 mg/dL 05/11/2024 8:57 AM EST [facility] Calcium 9.1 8.6 - 10.5 mg/dL 05/11/2024 8:57 AM EST [facility] Total Protein 7.1 6.0 - 8.0 g/dL 05/11/2024 8:57 AM EST [facility] Albumin 3.8 3.5 - 5.2 g/dL 05/11/2024 8:57 AM EST [facility] Bilirubin, Total 1.5(H) 0.2 - 1.2 mg/dL 05/11/2024 8:57 AM EST [facility] Alkaline Phosphatase 165(H) 35 - 129 U/L 05/11/2024 8:57 AM EST [facility] AST 23 10 - 40 U/L 05/11/2024 8:57 AM EST [facility] ALT 11 10 - 40 U/L 05/11/2024 8:57 AM EST [facility] BUN 16 7 - 23 mg/dL 05/11/2024 8:57 AM EST [facility] eGFR 74 >=60 mL/min/1. 73m2 05/11/2024 8:57 AM EST [facility] Comment:The estimated glomer ular filtration rate (eGFR) is calculated using a new formula developed by the NKF-ASN task force to eliminate race-based correction factors. The new formula uses serum/plasma creatinine, age, and gender to determine eGFR. A value below 60mls/min might indicate kidney disease and will be flagged. For additional information, see Artur et al, Am J Kidney Dis. 2021;79(2):268- 288, A Unifying Approach for GFR estimation: Recommendations of the NKF-ASN Task Force on Reassessing the Inclusion of Race in Diagnosing Kidney Disease . Globulin, Total 3.3 2.1 - 4.2 g/dL 05/11/2024 8:57 AM EST [facility] A/G Ratio 1.2(L) 1.5 - 3.0 05/11/2024 8:57 AM EST [facility] Blood Structure of peripheral vein / Unknown Venipuncture / Unknown 05/11/2024 8:02 AM EST 05/11/2024 8:15 AM EST us Yunior Pérez MD LAB BLOOD ORDERABLES Fin al Result Performing Organization Address City/[facility]/ZIP Co de Phone Number [facility] [address] [place] [address], * LIVER PRE EXTERNAL PANEL (04/16/2024) Sodium 130 mmol/L [facility] Potassium 4.2 [facility] Chloride 95 [facility] Carbon Dioxide 17 [facility] Glucose 108 [facility] BUN 11 mg/dL [facility] Creatinine 1.09 mg/dL [facility] Calcium 9.4 mg/dL [facility] Total Protein 7.5 g/dL [facility] Albumin 4.1 g/dL [facility] Bilirubin, Total 2.3 mg/dL [facility] Bilirubin, Direct 1.0 mg/dL [facility] Alkaline Phosphatase 151 U/L [facility] AST 30 U/L [facility] ALT 17 U/L [facility] WBC 9.2 10*3/uL [facility] Hgb 12.3 [facility] Hematocrit 37.1 % [facility] Platelets 228 10*3/uL [facility] INR 1.30 [facility] Alpha Fetoprotein, Tumor Marker 9.3 [facility] 04/16/2024 us Yunior Pérez MD LAB BLOOD ORDERABLES Fin al Result [facility] from Last 3 Months Insurance MEDICARE Member Subscriber Plan / Payer (Ef fective 2024-Present) Name:Tho Miller Member ID:[id number] Relation to Subscriber:Self Name:Tho Miller Subscriber ID:[id number] Payer ID:[id number] Group ID:Not on file Type:Not on file Address: [address] MEDICARE Advance Directives Documents on File Type Date Recorded Patient [facility] 05/15/2024 3:29 PM 05-11 Care Teams [employer] Relationship Specialty Start Date End Date Gulshan Chanel [address] [place] [address] PCP - General 04/17/24
--- OUTSIDE RECORDS SUMMARY | 2024-05-30 11:06 | XMS_ITS | Clinical Summary ---
Author Organization [facility] Address [address] [place] [address] Care Team Providers Care Entrepreneurship Program Director Name Role Phone Gulshan Chanel García Primary Care Provider [phone] Allergies No known active allergies Medications gabapentin [...] extended release Take by mouth. 4 Active rbbbfga-NWAS-lmt-v utvg-nuxx-wv 0.18-28-505-200 mg capsule 5 mg. 4 Active magnesium [...] by mouth 2 (two) times a day. 30115 mL 3 5 Active vitamin A 3,000 [...] pre-transplant evaluation for chronic liver disease 05/11/2024 Encounters Date Type Department Care Team Description 05/24/2024 Telephone [facility] Transplant Department [address] [place] [address] Angela Weaver, RN 05/18/2024 Orders Only [facility] Transplant Department [address] [place] [address] Angela Weaver, RN Encounter for pre-transplant evaluation for liver transplant (Primary Dx) 05/16/2024 Orders Only [facility] Transplant Department [address] [place] [address] Angela Weaver, RN Alcoholic cirrhosis of liver with ascites (CMS/HCC) (HCC) (Primary Dx) 05/16/2024 Telephone [facility] Gastroenterology Clinic [address] [place] [address] Payroll Technician: Yunior Bravo MD 05/16/2024 Results Follow-Up [facility] Liver Transplant Services [address] [place] [address] Angela Weaver, LUDY 05/16/2024 Telephone [facility] Transplant Department [address] [place] [address] Angela Weaver RN 05/15/2024 Results Follow-Up [facility] Liver Transplant Services [address] [place] [address] Angela Weaver RN 05/11/2024 3:15 PM EST Office Visit [facility] Liver Transplant Services [address] [place] [address] Kash Ramirez MD PhD Alcoholic cirrhosis of liver with ascites (CMS/HCC) (HCC) (Primary Dx); Portal hypertension (CMS/HCC) (HCC); Moderate protein-calorie malnutrition (HCC); Secondary esophageal varices without bleeding (HCC) 05/11/2024 2:30 PM EST Office Visit [facility] Liver Transplant Services [address] [place] [address] Preeti Mcdaniel MD Co, Elizabeth Hartmann MD Special screening examination for infectious diseases (Primary Dx); Encounter for pre-transplant evaluation for liver transplant; Cytomegalovirus infection, unspecified cytomegaloviral infection type (HCC) 05/11/2024 1:45 PM EST Nutrition [facility] Liver Transplant Services [address] [place] [address] 05/11/2024 1:00 PM EST Office Visit [facility] Liver Transplant Services [address] [place] [address] Nathan Ortiz MD Encounter for pre-transplant evaluation for chronic liver disease (Primary Dx) 05/11/2024 12:15 PM EST Social Work [facility] Liver Transplant Services [address] [place] [address] Radha Higginbotham ENVIRONMENT COORDINATOR 05/11/2024 11:45 AM EST Office Visit [facility] Liver Transplant Services [address] [place] [address] Evelyn Barr RN Awaiting organ transplant (Primary Dx) 05/11/2024 10:28 AM EST - 05/11/2024 11:59 PM EST Hospital Encounter [facility] CT Scan [address] [place] [address] Yunior Pérez MD Discharge Disposition: Home or Self Care () 05/11/2024 8:35 AM EST - 05/11/2024 10:27 AM EST Hospital Encounter [facility] ACC Building Cardiac Ultrasound [address] [place] [address] Yunior Pérez MD Discharge Disposition: Home or Self Care () 05/11/2024 Refill [facility] Transplant Department [address] [place] [address] OlivierAlena vallejo Hepatic cirrhosis, unspecified hepatic cirrhosis type, unspecified whether ascites present (CMS/HCC) (HCC) (Primary Dx); Moderate protein-calorie malnutrition (HCC) 05/09/2024 Telephone [facility] Transplant Department [address] [place] [address] Angela Weaver, RN 05/08/2024 Telephone [facility] Transplant Department [address] [place] [address] Angela Weaver, RN 05/01/2024 Telephone [facility] Transplant Department [address] [place] [address] Angela Weaver, RN 04/18/2024 Orders Only [facility] Transplant Department [address] [place] [address] Angela Weaver, LUDY Encounter for pre-transplant evaluation for liver transplant (Primary Dx) 04/17/2024 1:00 PM EST Office Visit [facility] Liver Transplant Services [address] [place] [address] Yunior Pérez MD Encounter for pre-transplant evaluation for liver transplant (Primary Dx) 04/17/2024 12:00 PM EST Evaluation [facility] Liver Transplant Services [address] [place] [address] Angela Weaver, LUDY Encounter for pre-transplant evaluation for liver transplant (Primary Dx) 04/17/2024 Orders Only [facility] Nuclear Medicine [address] [place] [address] Nurys Rutherford MD 04/17/2024 Abstract [facility] Transplant Department [address] [place] [address] Yunior Pérez MD 04/12/2024 Documentation [facility] Transplant Department [address] [place] [address] [place]-MacPhchapito on, Radha F., ENVIRONMENT COORDINATOR Transportation 04/11/2024 Orders Only [facility] Transplant Department [address] [place] [address] Angela Weaver, LUDY Encounter for pre-transplant evaluation for liver transplant (Primary Dx) 04/06/2024 Telephone [facility] Transplant Department [address] [place] [address] Angela Weaver, LUDY 04/05/2024 Telephone [facility] Transplant Department [address] [place] [address] Del Rio-MacPhers on, Radha F., ENVIRONMENT COORDINATOR criminal justice social worker 03/30/2024 Telephone [facility] Transplant Department [address] [place] [address] Radha Higginbotham ENVIRONMENT COORDINATOR Transportation 03/29/2024 Telephone [facility] Transplant Department [address] [place] [address] Angela Weaver RN 03/29/2024 Documentation [facility] Transplant Department [address] [place] [address] Radha Higginbotham, ENVIRONMENT COORDINATOR Transportation 03/16/2024 Orders Only [facility] Transplant Department [address] [place] [address] Provider, MD Timothy 03/15/2024 Orders Only [facility] Transplant Department [address] [place] [address] Provider, MD Timothy from Last 3 Months Immunizations Immunization Administration Dates Next Due Influenza, [...] Info) Description 06/11/2024 10:30 AM EDT Follow-Up [facility] Liver Transplant Services [address] [place] [address] Nathan Ortiz MD [address] [place] [address] 06/11/2024 11:00 AM EDT Clinical Support [facility] Liver Transplant Services [address] [place] [address] Health Maintenance Due Date Last Done Comments Cologuard 1969 Colon Cancer Screening 1969 Colonoscopy 1969 FOBT / Fit Test 1969 Sigmoidoscopy 1969 Medicare AWV 1970 Hepatitis B Vaccines (1 of 3 - 19+ 3-dose series) 04/1988 Pneumococcal Vaccine: 50+ Years (1 of 2 - PCV) 989 DTaP,Tdap,and Td Vaccines (1 - Tdap) 1991 Zoster Vaccines (1 of 2) 2019 COVID-19 Vaccine (1 - 2023- season) 2023 Influenza Vaccine (#1) 2023 02/12/2023 Alcohol/Substance Use Screening 03/21/2024 Depression Screening and Follow-Up 03/21/2024 Social Drivers of Health Annual Screening 03/21/2024 CT Lung Cancer Screening (Baseline) 05/11/202505/11 RSV Vaccine (60+ years old a nd patients) (1 - 1-dose 75+ series) 2044 HIV Screening Completed 05/11/2024 Hepatitis C Screening Completed 05/11/2024 Procedures * Due to [place] state law, this organization might not be [...] Encounter for pre-transplant evaluation for liver transplant TKPFI-6-HBKTHCOHUXI (AAT) PHENOTYPE Routine 05/11/2024 8:02 AM EST [...] CYSTATIN C WITH GLOMERULAR FILTRATION RATE, ESTIMATED (EGFR)-[id number] Routine 05/11/2024 8:02 AM EST Encounter for [...] for pre-transplant evaluation for liver transplant PHOSPHATIDYLETHANOL-ARU [id number] Routine 05/11/2024 8:02 AM EST Encounter for [...] for liver transplant QUANTIFERON-TB GOLD PLUS, 1 [id number] Routine 05/11/2024 8:02 AM EST Encounter for pre-transplant evaluation for liver transplant RPR (DIAGNOSIS) W/REFLEX TO TITER & TPPA [id number] Routine 05/11/2024 8:02 AM EST Encounter for [...] for pre-transplant evaluation for liver transplant ZINC, PLASMA/[id number]-[id number] Routine 05/11/2024 8:02 AM EST Encounter for pre-transplant evaluation for liver transplant PSA Routine 05/11/2024 8:02 AM EST Encounter for pre-transplant evaluation for liver transplant LIVER PRE EXTERNAL PANEL Routine 04/16/2024 from Last 3 Months Results * Due to [place] state law, this organization might not be [...] obtain the completed interpretation. ? Workstation ID: [id number] Up-to-date CT equipment and radiation dose reduction techniques were employed. CTDIvol: 3.0 - 14.6 mGy. DLP: 1699 mGy-cm. ??The following accession numbers are related to this dose report [id number]: [id number] Narrative 05/14/2024 7:59 PM EST EXAMINATION: CT [...] image 107 series 10. Resulting Agency Comment [id number] Procedure Note Christen Aviles MD - 05/14/2024 [...] 3. Cholelithiasis and choledocholithiasis. Punctate calculus seen [id number] series 4 within the distal CBD. Can [...] possible to obtain thecompleted interpretation. Workstation ID: [id number] Up-to-date CT equipment and radiation dose reduction techniques wereemployed. CTDIvol: 3.0 - 14.6 mGy. DLP: 1699 mGy-cm. The followingaccession numbers are related to this dose report [id number]: [id number] Yunior Pérez MD IM CT PROCEDURES Final [...] obtain the completed interpretation. ? Workstation ID: [id number] Up-to-date CT equipment and radiation dose reduction techniques were employed. CTDIvol: 3.0 - 14.6 mGy. DLP: 1699 mGy-cm. ??The following accession numbers are related to this dose report [id number]: [id number] Narrative 05/17/2024 4:11 PM EST Indication: ??pre [...] vertebral disease. Bilateral gynecomastia. Resulting Agency Comment [id number] Procedure Note Sidney Delatorre MD PhD - [...] possible to obtain thecompleted interpretation. Workstation ID: [id number] Up-to-date CT equipment and radiation dose reduction techniques wereemployed. CTDIvol: 3.0 - 14.6 mGy. DLP: 1699 mGy-cm. The followingaccession numbers are related to this dose report [id number]: [id number] Yunior Pérez MD IM CT PROCEDURES Final [...] BSA 1.85 RIGHT ATRIAL PRESSURE 3 mmHg [facility] RV TISSUE DOPPLER S' [...] Doppler. Myocardial deformation imaging was performed using [employer]. During the study the apical, parasternal, subcostal and suprasternal view was captured. Overall the study quality was adequate. Prior Study No prior study available for comparison. STRESS ECHO OVERALL FINDINGS Normal RV size and systolic function. No significant valvular disease identified. us Yunior Pérez MD CV ECHO PROCEDURES Final Result * Comprehensive Drug Panel, Urine (05/11/2024 8:11 AM EST) [facility] Comprehensive Drug Screen Urine DRUGS DETECTED 05/11/2024 2:55 PM EST [facility] Comment: NICOTINE GABAPENTIN COTININE CAFFEINE TRAMADOL AND METABOLITE Urine Voided urine specimen / Unknown Non-Blood Collection / Unknown 05/11/2024 8:11 AM EST 05/11/2024 8:16 AM EST [facility] - 05/11/2024 2:55 PM EST [facility] Received Date: us Yunior Pérez MD LAB URINE ORDERABLES Fin al Result [facility] [address] [facility] [address], [place] [address], [place] [phone] [facility] [address] [facility] [address], [place] [address], [place] [phone] * (ABNORMAL) Cystatin C with Glomerular Filtration Rate, Estimated (eGFR) (05/11/2024 8:02 AM EST) Cystatin C 1.39(H) 0.52 - 1.23 mg/L 05/17/2024 12:21 PM EST [facility] ([facility]) eGFR Non- 51(L) >=60 NA 05/17/2024 12:21 PM EST [facility] ([place]) Comment: ?REFERENCE RANGE:>=60 mL/min/1.73mE2 ? Blood Structure of peripheral vein / Unknown Venipuncture / Unknown 05/11/2024 8:02 AM EST 05/11/2024 8:14 AM EST [facility]) - 05/17/2024 12:21 PM EST [facility] Received Date: Yunior Pérez MD LAB BLOOD ORDERABLES King ben Result - Final [facility]) [id number] [place] [address], [place] * (ABNORMAL) SHELLY, Titer and Pattern (05/11/2024 8:02 AM EST) Pathologist [facility] SHELLY Titer 1 1:320(H) titer 05/16/2024 12:01 PM EST [facility] Comment: ?Reference Range ?<1:40 ?Negative ?1:40-1:80 ?Low Antibody Level ?>1:80 ?Elevated Antibody Level SHELLY Pattern 1 Nuclear, Homogeneo us(A) 05/16/2024 12:01 PM EST [facility] Comment: Homogeneous pattern is associated with systemic lupus erythematosus (SLE), drug-induced lupus and juvenile idiopathic arthritis. AC-1: Homogeneous International Consensus on SHELLY Patterns (https://doi.org/10.1515/tjyc-5663-8872) SHELLY Titer 2 1:320(H) titer 05/16/2024 12:01 PM EST [facility] Comment: ?Reference Range ?<1:40 ?Negative ?1:40-1:80 ?Low Antibody Level ?>1:80 ?Elevated Antibody Level SHELLY Pattern 2 Nuclear, Speckled( A) 05/16/2024 12:01 PM EST [facility] Comment: Speckled pattern is associated with mixed connective tissue disease (MCTD), systemic lupus erythematosus (SLE), Sjogren's syndrome, dermatomyositis, and systemic sclerosis/polymyositis overlap. AC-2,4,5,29: Speckled International Consensus on SHELLY Patterns (https://doi.org/10.1515/syin-6000-8199) Blood Structure of peripheral vein / Unknown Venipuncture / Unknown 05/11/2024 8:02 AM EST 05/11/2024 8:15 AM EST Narrative [facility] - 05/16/2024 12:01 PM EST [facility] Received Date: Yunior Pérez MD LAB BLOOD ORDERABLES Fin al Result [facility] [address] [facility] [address], [place] [address], [place] [phone] [facility] [address] [place] [address], [place] [address], * Phosphatidylethanol (PEth) (05/11/2024 8:02 AM EST) [...] (PLPEth) 32 ng/mL 05/12/2024 5:33 PM EST [facility] Comment:Reference ranges are not well established. EER Peth See Note 05/12/2024 5:33 PM EST [facility] Comment: Authorized individuals can access the [facility] Enhanced Report with an [facility] Connect account using the following link. Your local lab can assist you in obtaining the patient report if you don't have a Connect account. [email or web address] PEth Interpretation See Comment 04/22 5:33 PM EST [facility] Comment: Phosphatidylethanol (PEth) is a group [...] disease may have falsely elevated PEth concentrations (Msi MONGE et al 2018, Alcoholism Clinical & Experimental Research). This test was developed and its performance characteristics determined by [facility]. It has not been cleared or approved by the U.S. Food and Drug Administration. This test was performed in a CLIA-certified laboratory and is intended for clinical purposes. Performed By: [facility] [address] [place] [address] Drill Bit Sharpener: Yusuf Lomas MD, PhD CLIA Number: [id number] Blood Structure of peripheral vein / Unknown Venipuncture / Unknown 05/11/2024 8:02 AM EST 05/11/2024 8:15 AM EST us Yunior Pérez MD LAB BLOOD ORDERABLES Fin al Result [facility] [address] [place] [address], * Estkq-9-Wsvksguuaxf (AAT) Phenotype (05/11/2024 8:02 AM EST) Alpha 1 Antitrypsin Phenotype SEE NOTE 05/15/2024 1:10 PM EST [facility] Comment: THIS PATIENT'S AAACY-0-PLVGQEGWTDH PHENOTYPE IS PI*MM. 90% of normal individuals have the MM phenotype, with normal quantitative AAT levels. Many phenotypic patterns have been described, including deficiency states with F, S, Z, or other alleles. As a general estimation, compared to M allele of 100% of normal W-7-Gulaeuzykfi protein, the S allele produces approximately 60% and the Z allele 20%. For example, an MS phenotype would have about 80% of normal E-5-Heujjzojbmk protein level, a 50% contribution from the M allele and 30% from the S allele. A ZZ phenotype would have about 20% of normal levels, a 10% contribution from each Z gene. The F allele has normal U-9-Mvbocnjcdbc levels, but the kinetics of elastase inhibition [...] 8:13 AM EST Narrative [facility] - 05/15/2024 1:10 PM EST [facility] Received Date: Yunior éPrez MD LAB BLOOD ORDERABLES Fin al Result [facility] [address] [place] [address] 3rd Floor, [place] [address], [employer] [address] [place] [address], * (ABNORMAL) MMR Panel, IgG (05/11/2024 8:02 AM EST) Measles Antibody (IgG), Immune Status <13.50(L) AU/mL 05/11/2024 5:16 PM EST [facility] Comment: AU/mL ?Interpretation ----- ? <13.50 ? Not consistent with immunity 13.50-16.49 ?Equivocal >16.49 ? Consistent with immunity The presence of measles IgG suggests immunization or past or current infection with measles virus. For additional information, please refer to http://The Political Student.Veniti/faq/KJQ396 (This link is being provided for informational/ educational purposes only.) Mumps Antibody (IgG), Immune Status <9.00(L) AU/mL 05/11/2024 5:16 PM EST [facility] Comment: AU/mL ? Interpretation ------- ? <9.00 ? Not consistent with immunity 9.00-10.99 ?Equivocal >10.99 ?Consistent with immunity The presence of mumps IgG antibody suggests immunization or past or current infection with mumps virus. Rubella Antibody (IgG), Immune Status <0.90(L) Index 05/11/2024 5:16 PM EST [facility] Comment: ?Index ?Interpretation ?----- ?<0.90 ?Not consistent with immunity ?0.90-0.99 ?Equivocal ?> or = 1.00 ?Consistent with immunity The presence of rubella IgG antibody suggests immunization or past or current infection with rubella virus. Blood Structure of peripheral vein / Unknown Venipuncture / Unknown 05/11/2024 8:02 AM EST 05/11/2024 8:15 AM EST Narrative [facility] - 05/11/2024 5:16 PM EST [facility] Received Date: Yunior Pérez MD LAB BLOOD ORDERABLES Fin al Result [facility] [address] [facility] [address], [place] [address], [place] [phone] [facility] [address] [facility] [address], [place] [address], [place] [phone] * (ABNORMAL) Herpes Simplex Virus 1&2, IgG (05/11/2024 8:02 AM EST) Pathologist [facility] HSV 1 IgG Type Specific Ab <0.90 index 05/11/2024 9:20 PM EST [facility] HSV 2 IgG Type Specific Ab 1.66(H) index 05/11/2024 9:20 PM EST [facility] Comment: ?Index ?Interpretation ?----- ?<0.90 ?Negative ?0.90-1.09 ?Equivocal ?>1.09 ?Positive Low HSV-2 IgG positive results (index values between 1.10-3.00) may represent false positive results. CDC 2020 guidelines recommend confirmatory testing of samples with low-positive HSV-2 IgG results. If clinically indicated, consider adding on HSV-2 IgG Inhibition, by contacting [facility]. For additional information, please refer to: https://www.The Switch.ProRadis/healthcare- professionals/unsqmdsl-fefuoedna-qzhlkg/faq/faq73 (This link is being provided for informational/ [...] screening. For additional information, please refer to http://education.Veniti/faq/ZTF782 (This link is being provided for informational/ educational purposes only.) ?? Blood Structure of peripheral vein / Unknown Venipuncture / Unknown 05/11/2024 8:02 AM EST 05/11/2024 8:13 AM EST N[facility]ative [facility] - 05/11/2024 9:20 PM EST [facility] Received Date: Yunior Pérez MD LAB BLOOD ORDERABLES Fin al Result [facility] [address] [facility] [address], [place] [address], [employer] [facility] [address] [facility] [address], [place] [address], * Protein Electrophoresis w/Reflex to Immunofixation, Serum (05/11/2024 8:02 AM EST) Protein, Total 6.9 6.1 - 8.1 g/dL 05/11/2024 10:39 PM EST [employer] [facility] Albumin 3.8 3.8 - 4.8 g/dL 05/11/2024 10:39 PM EST [employer] [facility] Alpha 1 Globulin 0.3 0.2 - 0.3 g/dL 05/11/2024 10:39 PM EST [employer] [facility] Alpha 2 Globulin 0.6 0.5 - 0.9 g/dL 05/11/2024 10:39 PM EST [employer] [facility] Beta 1 Globulin 0.5 0.4 - 0.6 g/dL 05/11/2024 10:39 PM EST [employer] [facility] Beta 2 Globulin 0.3 0.2 - 0.5 g/dL 05/11/2024 10:39 PM EST [employer] [facility] Gamma Globulin 1.4 0.8 - 1.7 g/dL 05/11/2024 10:39 PM EST [employer] [facility] Interpretation See Comments 05/11/2024 10:39 PM [facility] Comment: Normal Serum Protein Electrophoresis Pattern. No abnormal protein bands (M-protein) detected. Blood Structure of peripheral vein / Unknown Venipuncture / Unknown 05/11/2024 8:02 AM EST 05/11/2024 8:14 AM EST Narrative [facility] - 05/11/2024 10:39 PM EST [facility] Received Date:[id number] us Yunior Pérez MD LAB BLOOD ORDERABLES Fin al Result Performing Organization Address [facility]/ZIP Co de Phone Number [facility] [address], [place] [address], [place] [phone] [employer] [facility] [address], [place] [address], [place] [phone] * RPR (Diagnosis) w/Reflex to Titer & TPPA Confirm (05/11/2024 8:02 AM EST) RPR W/Refl Titer NON-REACT COLLINS NON-REACT COLLINS 05/11/2024 1:09 PM EST [employer] [facility] Blood Structure of peripheral vein / Unknown Venipuncture / Unknown 05/11/2024 8:02 AM EST 05/11/2024 8:15 AM EST Narrative [facility] - 05/11/2024 1:09 PM EST [facility] Received Date:[id number] us Yunior Pérez MD LAB BLOOD ORDERABLES Fin al Result Performing Organization Address City/[facility]/ZIP Co de Phone Number [facility] [address], [place] [address], [place] [phone] [employer] [facility] [address], [place] [address], [place] [phone] * (ABNORMAL) Iron Saturation (05/11/2024 8:02 AM EST) Iron Saturation 6(L) 20 - 50 % 8:57 AM EST [facility] Iron 25(L) 45 - 160 ug/dL 05/11/2024 8:57 AM EST [facility] Transferrin 316 200 - 360 mg/dL 05/11/2024 8:57 AM EST [facility] Total Iron Binding Capacity 395 255 - 450 ug/dL 05/11/2024 8:57 AM EST [facility] Blood Structure of peripheral vein / Unknown Venipuncture / Unknown 05/11/2024 8:02 AM EST 05/11/2024 8:15 AM EST Yunior Pérez MD LAB BLOOD ORDERABLES Fin al Result [facility] [address] [place] [address], * TSH Reflex Free T4 (05/11/2024 8:02 AM EST) Pathologist [facility] TSH 2.130 0.280 - 3.890 uIU/mL 05/11/2024 8:57 AM EST [facility] Blood Structure of peripheral vein / Unknown Venipuncture / Unknown 05/11/2024 8:02 AM EST 05/11/2024 8:15 AM EST Yunior Pérez MD LAB BLOOD ORDERABLES Fin al Result Performing Organization Address City/[facility]/ZIP Co de Phone Number [facility] [address] [place] [address], * QuantiFERON-TB Gold Plus, 1 Tube (05/11/2024 8:02 AM EST) Pathologist [facility] QuantiFERON-TB Gold Plus NEGATIVE NEGATIVE 05/14/2024 2:04 PM EST [facility] Comment: Negative test result. M. tuberculosis complex infection unlikely. NIL 0.01 IU/mL 05/14/2024 2:04 PM EST [facility] Mitogen-NIL 9.32 IU/mL 05/14/2024 2:04 PM EST [facility] TB1-NIL 0.00 IU/mL 05/14/2024 2:04 PM EST [facility] TB2-NIL 0.01 IU/mL 05/14/2024 2:04 PM EST [facility] Comment: The Nil tube value reflects [...] T-lymphocytes. For additional information, please refer to https://education.[employer]/faq/KZK561 (This link is being provided for informational/ educational purposes only.) Blood Structure of peripheral vein / Unknown Venipuncture / Unknown 05/11/2024 8:02 AM EST 05/11/2024 8:10 AM EST Narrative [facility] - 05/14/2024 2:04 PM EST [facility] Received Date: Yunior Pérez MD LAB BLOOD ORDERABLES Fin al Result [facility] [address] [facility] [address] [facility], [place] [address], [place] [phone] [employer] [address], [place] [address], * (ABNORMAL) CBC Auto Differential (05/11/2024 8:02 AM EST) WBC 8.6 3.8 - 10.8 10*3/uL 05/11/2024 8:22 AM EST [facility] RBC 3.56(L) 4.20 - 5.80 10*6/uL 05/11/2024 8:22 AM EST [facility] Hemoglobin 11.1(L) 13.2 - [...] % 1.0 % 05/11/2024 8:22 AM EST [facility] Neutrophil # 5.60 1.50 - 7.80 10*3/uL 05/11/2024 8:22 AM EST [facility] Immature Grans # 0.03 <=0.03 10*3/uL 05/11/2024 8:22 AM EST [facility] Lymphocyte # 1.60 0.85 - 3.90 10*3/uL 05/11/2024 8:22 AM EST [facility] Monocyte # 1.10(H) 0.20 - 0.95 10*3/uL 05/11/2024 8:22 AM EST [facility] Eosinophil # 0.20 0.02 - 0.50 10*3/uL 05/11/2024 8:22 AM EST [facility] Basophil # 0.10 0.00 - 0.20 10*3/uL 05/11/2024 8:22 AM EST [facility] nRBC % 0.0 /100 WBCs 05/11/2024 8:22 AM EST [facility] nRBC # <0.01 <0.01 10*3/uL 05/11/2024 8:22 AM EST [facility] Blood Structure of peripheral vein / Unknown Venipuncture / Unknown 05/11/2024 8:02 AM EST 05/11/2024 8:15 AM EST Yunior Pérez MD LAB BLOOD ORDERABLES Fin al Result [facility] [address] [place] [address], * Smooth Muscle Antibody Screen w/Reflex to Titer (05/11/2024 8:02 AM EST) Smooth Muscle AB Screen NEGATIVE NEGATIVE 05/14/2024 3:03 PM EST [facility] Comment: The specimen was negative for cytoplasmic antibodies, however additional staining was observed suggesting the presence of Antinuclear Antibodies. Consider requesting order code 249, SHELLY Screen, IFA with Reflex to Titer and Pattern, or order code [id number], SHELLY Screen, IFA w/reflex Titer/Pattern, and Reflex to Multiplex 11 Ab [place], if clinically indicated. Blood Structure of peripheral vein / Unknown Venipuncture / Unknown 05/11/2024 8:02 AM EST 05/11/2024 8:15 AM EST Narrative [facility] - 05/14/2024 3:03 PM EST [facility] Received Date:[id number] us Yunior Pérez MD LAB BLOOD ORDERABLES Fin al Result [facility] [address], [place] [address], [place] [phone] [employer] [employer] [facility] [address], [place] [address], [place] [phone] * Hepatitis C Antibody w/Reflex to PCR (05/11/2024 8:02 AM EST) Hepatitis C Antibody NON-REACT COLLINS NON-REACT COLLINS 05/11/2024 11:44 AM EST [employer] [facility] Comment: HCV antibody was non-reactive. There is no laboratory evidence of HCV infection. In most cases, no further action is required. However, if recent HCV exposure is suspected, a test for HCV RNA (test code 45618) is suggested. For additional information please refer to http://education.[employer]/faq/KQH13m9 (This link is being provided for informational/ educational purposes only.) Blood Structure of peripheral vein / Unknown Venipuncture / Unknown 05/11/2024 8:02 AM EST 05/11/2024 8:15 AM EST Narrative [facility] - 05/11/2024 11:44 AM EST [facility] Received Date:[id number] us Yunior Pérez MD LAB BLOOD ORDERABLES Fin al Result [facility] [address] [facility] [address] [facility], [place] [address], [place] [phone] [facility] [employer] [facility] [address], [place] [address], * Hepatitis A Antibody, Total (05/11/2024 8:02 AM EST) Hepatitis A Ab, Total NON-REACT COLLINS NON-REACT COLLINS 05/11/2024 11:44 AM EST [facility] Comment: For additional information, please refer to http://education.[employer]/faq/SOF805 (This link is being provided for informational/ educational purposes only.) Blood Structure of peripheral vein / Unknown Venipuncture / Unknown 05/11/2024 8:02 AM EST 05/11/2024 8:15 AM EST Narrative [facility] - 05/11/2024 11:44 AM EST [facility] Received Date: Yunior Pérez MD LAB BLOOD ORDERABLES Fin al Result [facility] [address] [facility] 3rd Floor, [place] [address], [facility] [address] [facility] 3[address] Floor, [place] [address], * Histoplasma Antibody Panel, CF & ID (05/11/2024 8:02 AM EST) Pathologist [facility] Histoplasma capsulatum yeast phase Ab <1:8 <1:8 NA 05/17/2024 12:21 PM EST [facility] ([place]) Histoplasma capsulatum mycelial phase Ab <1:8 <1:8 NA 05/17/2024 12:21 PM EST [facility] ([place]) Comment: Interpretive Criteria: ?<1:8 - Antibody Not [...] analytical performance characteristics have been determined by [facility] [place], [place]. It has not been cleared or approved by the FDA. This assay has been validated pursuant to the CLIA regulations and is used for clinical purposes. Histoplasma capsulatum M Antibody Negative Negative 05/17/2024 12:21 PM EST [facility] ([place]) Histoplasma capsulatum H Antibody Negative Negative 05/17/2024 12:21 PM EST [facility] ([place]) Comment: This immunodiffusion assay is highly specific [...] EST 05/11/2024 8:14 AM EST Narrative [facility]) - 05/17/2024 12:21 PM EST [facility] Received Date: us Elizabeth Gonzalez MD LAB BLOOD ORDERABLES Final Res ult [facility]) [address] [place] [address], [place] * (ABNORMAL) SHELLY Screen, Reflex to Titer, IFA (05/11/2024 8:02 AM EST) Pathologist [facility] SHELLY Screen, IFA POSITIVE (A) NEGATIVE 05/16/2024 12:00 PM EST [employer] [facility] Comment: SHELLY IFA is a first line screen for detecting the presence of up to approximately 150 autoantibodies in various autoimmune diseases. A positive SHELLY IFA result is suggestive of autoimmune disease and reflexes to titer and pattern. Further laboratory testing may be considered if clinically indicated. For additional information, please refer to http://education.[employer]/faq/RPP651 (This link is being provided for informational/ educational purposes only.) ?? Blood Structure of peripheral vein / Unknown Venipuncture / Unknown 05/11/2024 8:02 AM EST 05/11/2024 8:15 AM EST [facility] - 05/16/2024 12:00 PM EST [facility] Received Date:[id number] us Yunior Pérez MD LAB BLOOD ORDERABLES Fin al Result Performing Organization Address City/[facility]/ZIP Co de Phone Number [facility] [address] [facility] [address] [facility], [place] [address], [place] [phone] [employer] [employer] [facility] [address], [place] [address], * Ceruloplasmin (05/11/2024 8:02 AM EST) Ceruloplasmin 19 14 - 30 mg/dL 05/13/2024 1:07 AM EST [facility] Blood Structure of peripheral vein / Unknown Venipuncture / Unknown 05/11/2024 8:02 AM EST 05/11/2024 8:15 AM EST Narrative [facility] - 05/13/2024 1:07 AM EST [facility] Received Date:[id number] us Yunior Pérez MD LAB BLOOD ORDERABLES Fin al Result Performing Organization Address City/[facility]/ZIP Co de Phone Number [facility] [address], [place] [address], [place] [phone] [employer] [facility] [address], [place] [address], * (ABNORMAL) Zinc (05/11/2024 8:02 AM EST) Zinc 45(L) 60 - 130 mcg/dL 05/15/2024 11:53 AM EST [facility]) Comment: This test was developed and its analytical performance characteristics have been determined by [facility] [place], [place]. It has not been cleared or approved by the U.S. Food and Drug Administration. This assay has been validated pursuant to the CLIA regulations and is used for clinical purposes. Blood Structure of peripheral vein / Unknown Venipuncture / Unknown 05/11/2024 8:02 AM EST 05/11/2024 8:15 AM EST [facility] ([place]) - 05/15/2024 11:53 AM EST [facility] Received Date: Yunior Pérez MD LAB BLOOD ORDERABLES Fin al Result Performing Organization Address [facility] Co de Phone Number [facility]) [address] [place], [place] , [place] * (ABNORMAL) Vitamin A (Retinol) (05/11/2024 8:02 AM EST) Pathologist [facility] Vitamin A (Retinol) 15(L) 38 - 98 mcg/dL 05/14/2024 11:11 PM EST [facility]) Comment: Vitamin supplementation within 24 hours prior to blood draw may affect the accuracy of the results. This test was developed and its analytical performance characteristics have been determined by [facility] [place], [place]. It has not been cleared or approved by the U.S. Food and Drug Administration. This assay has been validated pursuant to the CLIA regulations and is used for clinical purposes. Blood Structure of peripheral vein / Unknown Venipuncture / Unknown 05/11/2024 8:02 AM EST 05/11/2024 8:10 AM EST [facility] ([place]) - 05/14/2024 11:11 PM EST [facility] Received Date:[id number] Yunior Pérez MD LAB BLOOD ORDERABLES Fin al Result Performing Organization Address City/[facility]/ZIP Co de Phone Number [facility]) [address] [place], [place] , * (ABNORMAL) AFP Tumor Marker (05/11/2024 8:02 AM EST) [facility] Alpha Fetoprotein, Tumor Marker 7.4(H) <6.1 ng/mL 05/14/2024 1:16 PM EST [facility] Comment: This test was performed using the Bakari Woodworth chemiluminescent method. Values obtained from different assay methods cannot be used interchangeably. AFP levels, regardless of value, should not be interpreted as absolute evidence of the presence or absence of disease. Blood Structure of peripheral vein / Unknown Venipuncture / Unknown 05/11/2024 8:02 AM EST 05/11/2024 8:15 AM EST Narrative [facility] - 05/14/2024 1:16 PM EST [facility] Received Date:[id number] Yunior Pérez MD LAB BLOOD ORDERABLES Fin al Result [facility] [address] [facility] [address] [facility], [place] [address], [facility] [address], [place] [address], * (ABNORMAL) Nikhil-Richardson Virus VCA, IgG (05/11/2024 8:02 AM EST) [facility] EBV Viral Capsid Ag Ab (IGG) >750.00(H ) U/mL 05/11/2024 5:16 PM EST [facility] Comment: ? U/mL ? Interpretation ? ---- ? <18.00 ? Negative ? 18.00-21.99 ?Equivocal ? >21.99 ? Positive Blood Structure of peripheral vein / Unknown Venipuncture / Unknown 05/11/2024 8:02 AM EST 05/11/2024 8:15 AM EST [facility] - 05/11/2024 5:16 PM EST [facility] Received Date:[id number] us Yunior Pérez MD LAB BLOOD ORDERABLES Fin al Result [facility] [address] [facility] [address] [facility], [place] [address], [place] [phone] [employer] [facility] [address], [address] [facility] [place] [address], [place] [phone] * Hepatitis B Core Antibody, Total (05/11/2024 8:02 AM EST) Hepatitis B Core Ab Total NON-REACT COLLINS NON-REACT COLLINS 05/11/2024 11:44 AM EST [facility] Comment: For additional information, please refer to http://[employer]/faq/XEX563 (This link is being provided for informational/ educational purposes only.) Blood Structure of peripheral vein / Unknown Venipuncture / Unknown 05/11/2024 8:02 AM EST 05/11/2024 8:15 AM EST [facility] [place] - 05/11/2024 11:44 AM EST [facility] Received Date:[id number] us Yunior Pérez MD LAB BLOOD ORDERABLES Fin al Result [facility] [address], [place] [address], [place] [phone] [employer] [facility] [address], [place] [address], * (ABNORMAL) Vitamin D, 25-Hydroxy, Total, Immunoassay (05/11/2024 8:02 AM EST) Calcidiol+ercalc idiol 13(L) 30 - 100 ng/mL 05/11/2024 11:52 AM EST [facility] Comment: Vitamin D Status ? 25-OH Vitamin D: Deficiency: ?<20 ng/mL Insufficiency: ? 20 - 29 ng/mL Optimal: ? > or = 30 ng/mL For 25-OH Vitamin D testing on patients on D2-supplementation and patients for whom quantitation of D2 and D3 fractions is required, the QuestAssureD(TM) 25-OH VIT D, (D2,D3), LC/MS/MS is recommended: order code [id number] (patients >2yrs). See Note 1 Note 1 For additional information, please refer to http://education.[employer]iti/faq/ISG795 (This link is being provided for informational/ educational purposes only.) Blood Structure of peripheral vein / Unknown Venipuncture / Unknown 05/11/2024 8:02 AM EST 05/11/2024 8:15 AM EST Narrative [facility] - 05/11/2024 11:52 AM EST [facility] Received Date: Yunior Pérez MD LAB BLOOD ORDERABLES Fin al Result [facility] [place] [address] [facility] 3rd Floor, [place] [address], [facility] [address] [facility] 3[address] Floor, [place] [address], * Mitochondrial Antibody w/Reflex (05/11/2024 8:02 AM EST) Mitochondrial Ab Screen NEGATIVE NEGATIVE 05/14/2024 3:03 PM EST [facility] Comment: The specimen was negative for cytoplasmic antibodies, however additional staining was observed suggesting the presence of Antinuclear Antibodies. Consider requesting order code 249, SHELLY Screen, IFA with Reflex to Titer and Pattern, or order code [id number], SHELLY Screen, IFA w/reflex Titer/Pattern, and Reflex to Multiplex 11 Ab [place], if clinically indicated. Blood Structure of peripheral vein / Unknown Venipuncture / Unknown 05/11/2024 8:02 AM EST 05/11/2024 8:13 AM EST Narrative [facility] [place] - 05/14/2024 3:03 PM EST [facility] Received Date: us Yunior Pérez MD LAB BLOOD ORDERABLES Fin al Result Performing Organization Address City/[facility]/ZIP Co de Phone Number [facility] [address], [place] [address], [employer] [facility] [address], [place] [address], * Toxoplasma gondii Antibody, IgG (05/11/2024 8:02 AM EST) [facility] Toxoplasma Ab IgG <7.20 IU/mL 05/11/2024 9:20 PM EST [facility] Comment: ? IU/mL ?Interpretation ? ------ ? <7.20 ?Negative ? 7.20-8.79 ?Equivocal ? >8.79 ?Positive Blood Structure of peripheral vein / Unknown Venipuncture / Unknown 05/11/2024 8:02 AM EST 05/11/2024 8:13 AM EST Narrative [facility] 05/11/2024 9:20 PM EST [facility] Received Date: us Yunior Pérez MD LAB BLOOD ORDERABLES Fin al Result [facility] [address], [place] [address], [facility] [address], [place] [address], * (ABNORMAL) Hepatitis B Surface Antibody (05/11/2024 8:02 AM EST) Pathologist [facility] Hepatitis B Surface Ab Immunity, Qn <5(L) > OR = 10 mIU/mL 05/11/2024 11:44 AM EST [employer] [facility] Comment: PATIENT DOES NOT HAVE IMMUNITY TO HEPATITIS B VIRUS. For additional information, please refer to http://[employer] Student[employer]/faq/ZKC907 (This link is being provided for informational/ educational purposes only). Blood Structure of peripheral vein / Unknown Venipuncture / Unknown 05/11/2024 8:02 AM EST 05/11/2024 8:15 AM EST Narrative [facility] - 05/11/2024 11:44 AM EST [facility] Received Date: Yunior Pérez MD LAB BLOOD ORDERABLES Fin al Result [facility] [address] [facility] [address] [facility], [place] [address], [employer] [facility] [address], [place] [address], * Hepatitis B Surface Antigen w/Confirmation (05/11/2024 8:02 AM EST) Pathologist [facility] Hepatitis B Surface Antigen NON-REACT COLLINS NON-REACT COLLINS 05/11/2024 11:44 AM EST [employer] [facility] Comment: For additional information, please refer to http://[employer] Student[employer]/faq/SAG227 (This link is being provided for informational/ educational purposes only.) Blood Structure of peripheral vein / Unknown Venipuncture / Unknown 05/11/2024 8:02 AM EST 05/11/2024 8:15 AM EST Narrative [facility] - 05/11/2024 11:44 AM EST [facility] Received Date:[id number] Yunior Pérez MD LAB BLOOD ORDERABLES Fin al Result Performing Organization Address City/[facility] Co de Phone Number [facility] [address] [facility] 3rd Floor, [place] [address], [place] [phone] [facility] [address] [facility] 3rd Floor, [place] [address], * (ABNORMAL) Cytomegalovirus Antibody, IgG (05/11/2024 8:02 AM EST) Pathologist [facility] Cytomegalovirus Antibody (IgG) 6.00(H) U/mL 05/12/2024 4:15 AM EST [facility] Comment: ? U/mL ? Interpretation ? ----- [...] 8:15 AM EST Narrative [facility] - 05/12/2024 4:15 AM EST [facility] Received Date:[id number] us Yunior Pérez MD LAB BLOOD ORDERABLES Fin al Result [facility] [place] [address] [facility] 3rd Floor, [place] [address], [place] [phone] [employer] [facility] [address] [facility] 3rd Floor, [place] [address], [place] [phone] * (ABNORMAL) PTT (05/11/2024 8:02 AM EST) aPTT 33.2(H) 23.0 - 32.0 Seconds 05/11/2024 9:04 AM EST [facility] Comment: Current PTT reagent is not sensitive to detect all Lupus Anticoagulant (LA) Inhibitor Cases. ?? If a LA is suspected, please order a Lupus Anticoagulation w/ Reflex Test which is performed at [facility] in [place], [place]. Blood Structure of peripheral vein / Unknown Venipuncture / Unknown 05/11/2024 8:02 AM EST 05/11/2024 8:13 AM EST Yunior Pérez MD LAB BLOOD ORDERABLES Fin al Result [facility] [address] [place] [address], * Protime-INR (05/11/2024 8:02 AM EST) PT 11.9 9.6 - 12.4 Seconds 05/11/2024 9:04 AM EST [facility] INR 1.1 0.9 - 1.1 05/11/2024 9:04 AM EST [facility] Comment:The optimal therapeu tic INR range for patients treated with Vitamin K antagonists (VKAS, e.g., Warfarin) is 2.0 to 3.5. Discuss the desired range with your doctor/care team. Blood Structure of peripheral vein / Unknown Venipuncture / Unknown 05/11/2024 8:02 AM EST 05/11/2024 8:13 AM EST Yunior Pérez MD LAB BLOOD ORDERABLES Fin al Result Performing Organization Address [facility] Co de Phone Number [facility] [address] [place] [address], * Type and Screen (05/11/2024 8:02 AM EST) Pathologist [facility] ABO Blood Type B 05/11/2024 9:09 AM [...] TEST HOLLY STORM Edited Result - Final Performing Organization Address [facility] de Phone Number [facility] [address] [place] [address], * Varicella Zoster Antibody, IgG (05/11/2024 8:02 AM EST) Pathologist [facility] Varicella Zoster Virus Antibody 2.40 S/CO 05/11/2024 5:07 PM EST [facility] Comment: ?Signal to Cut-off ? S/CO ?Interpretation [...] EST 05/11/2024 8:13 AM EST Narrative [facility] - 05/11/2024 5:07 PM EST [facility] Received Date: Yunior Pérez MD LAB BLOOD ORDERABLES Fin al Result [facility] [address] [facility] 3rd Floor, [place] [address], [employer] [facility] [address] [facility] 3rd Floor, [place] [address], * PSA (05/11/2024 8:02 AM EST) PSA 0.04 <=4.00 ng/mL 05/11/2024 8:53 AM EST [facility] Comment: The total PSA value from this assay system is standardized against the WHO standard. ??The test result will be slightly lower (< 3 %) when compared to the equimolar-standardized total PSA(Bakari Woodworth). ??Comparison of Serial PSA results should be [...] MD LAB BLOOD ORDERABLES Fin al Result [facility] [address] [place] [address], [place] * Phosphorus (05/11/2024 8:02 AM EST) Phosphorus 3.2 2.5 - 4.5 mg/dL 05/11/2024 8:57 AM EST [facility] Blood Structure of peripheral vein / Unknown Venipuncture / Unknown 05/11/2024 8:02 AM EST 05/11/2024 8:15 AM EST us Yunior Pérez MD LAB BLOOD ORDERABLES Fin al Result Performing Organization Address [facility] Co de Phone Number [facility] [address] [place] [address], [place] * Magnesium (05/11/2024 8:02 AM EST) MG 1.9 1.6 - 2.4 mg/dL 05/11/2024 8:57 AM EST [facility] Blood Structure of peripheral vein / Unknown Venipuncture / Unknown 05/11/2024 8:02 AM EST 05/11/2024 8:15 AM EST Yunior Pérez MD LAB BLOOD ORDERABLES Fin al Result Performing Organization Address City/[facility]/ZIP Co de Phone Number [facility] [address] [place] [address], [place] * Hemoglobin A1c (05/11/2024 8:02 AM EST) Hemoglobin A1C 4.7 <5.7 % of total Hgb 05/12/2024 10:03 AM [facility]io Comment: For the purpose of screening for the presence of diabetes: <5.7% ? Consistent with the absence of diabetes 5.7-6.4% ?Consistent with increased risk for diabetes ?(prediabetes) > or =6.5% ??Consistent with diabetes This assay result is consistent with a decreased risk of diabetes. Currently, no consensus exists regarding use of hemoglobin A1c for diagnosis of diabetes in children. According to [place] Diabetes Association (ADA) guidelines, hemoglobin A1c <7.0% represents optimal control in non- diabetic patients. Different metrics may apply to specific patient populations. Standards of Medical Care in Diabetes(ADA). ?? eAG (MG/DL) 88 mg/dL 05/12/2024 10:03 AM resmio eAG (MMOL/L) 4.9 mmol/L 05/12/2024 10:03 AM [facility]io Blood Structure of peripheral vein / Unknown Venipuncture / Unknown 05/11/2024 8:02 AM EST 05/11/2024 8:15 AM EST Narrative [facility] - 05/12/2024 10:03 AM EST [facility] Received Date: Yunior Pérez MD LAB BLOOD ORDERABLES Fin al Result [facility] [address] [facility] [address] [facility], [place] [address], [facility] [address] [facility] [address] Floor, [place] [address], * Ferritin (05/11/2024 8:02 AM EST) Ferritin 44.9 23.0 - 336.0 ng/mL 05/11/2024 8:57 AM EST [facility] Blood Structure of peripheral vein / Unknown Venipuncture / Unknown 05/11/2024 8:02 AM EST 05/11/2024 8:15 AM EST Yunior Pérez MD LAB BLOOD ORDERABLES Fin al Result Performing Organization Address City/[facility]/ZIP Co de Phone Number [facility] [address] [place] [address], * (ABNORMAL) Bilirubin, Direct (05/11/2024 8:02 AM EST) Bilirubin, Direct 0.8(H) <=0.4 mg/dL 05/11/2024 8:57 AM EST [facility] Blood Structure of peripheral vein / Unknown Venipuncture / Unknown 05/11/2024 8:02 AM EST 05/11/2024 8:15 AM EST Yunior Pérez MD LAB BLOOD ORDERABLES Fin al Result Performing Organization Address [facility]/ZIP Co de Phone Number [facility] [address] [place] [address], [place] * Ethanol (05/11/2024 8:02 AM EST) Ethanol <10 <10 mg/dL 05/11/2024 8:53 AM EST [facility] Blood Structure of peripheral vein / Unknown Venipuncture / Unknown 05/11/2024 8:02 AM EST 05/11/2024 8:11 AM EST Yunior Pérez MD LAB BLOOD ORDERABLES Fin al Result [facility] [address] [place] [address], * (ABNORMAL) Lipid panel (05/11/2024 8:02 AM EST) Cholesterol 142 <=199 mg/dL 05/11/2024 8:57 AM EST [facility] Triglycerides 82 <=149 mg/dL 05/11/2024 8:57 AM EST [facility] Cholesterol, HDL 71(H) 40 - 59 mg/dL 05/11/2024 8:57 AM EST [facility] Cholesterol, Non-HDL 71 mg/dL 05/11/2024 8:57 AM EST [facility] LDL Cholesterol 55 <100 mg/dL 05/11/2024 8:57 AM EST [facility] VLDL 16.4 mg/dL 05/11/2024 8:57 AM EST [facility] Cholesterol/HDL Ratio 2.0 <5.0 05/11/2024 8:57 AM EST [facility] Blood Structure of peripheral vein / Unknown Venipuncture / Unknown 05/11/2024 8:02 AM EST 05/11/2024 8:15 AM EST [facility] - 05/11/2024 8:57 AM [...] ?<110 ?Borderline High ? 110-129 ?High ?>=130 Yunior Pérez MD LAB BLOOD ORDERABLES Fin al Result [facility] [address] [place] [address], * (ABNORMAL) Comprehensive Metabolic Panel (05/11/2024 8:02 AM EST) NA 127(L) 135 - 145 mmol/L 05/11/2024 8:57 AM EST [facility] K 4.5 3.5 - 5.3 mmol/L 05/11/2024 8:57 AM EST [facility] Cl 94(L) 98 - 107 mmol/L 05/11/2024 8:57 AM EST [facility] CO2 21(L) 22 - 32 mmol/L 05/11/2024 8:57 AM EST [facility] Anion Gap 12 5 - 15 05/11/2024 8:57 AM EST [facility] Glucose 105(H) 65 - 99 mg/dL 05/11/2024 8:57 AM EST [facility] Creatinine 1.16 0.60 - 1.30 mg/dL 05/11/2024 8:57 AM EST [facility] Calcium 9.1 8.6 - 10.5 mg/dL 05/11/2024 8:57 AM EST [facility] Total Protein 7.1 6.0 - 8.0 g/dL 05/11/2024 8:57 AM EST [facility] Albumin 3.8 3.5 - 5.2 g/dL 05/11/2024 8:57 AM EST [facility] Bilirubin, Total 1.5(H) 0.2 - 1.2 mg/dL 05/11/2024 8:57 AM EST [facility] Alkaline Phosphatase 165(H) 35 - 129 U/L 05/11/2024 8:57 AM EST [facility] AST 23 10 - 40 U/L 05/11/2024 8:57 AM EST [facility] ALT 11 10 - 40 U/L 05/11/2024 8:57 AM EST [facility] BUN 16 7 - 23 mg/dL 05/11/2024 8:57 AM EST [facility] eGFR 74 >=60 mL/min/1. 73m2 05/11/2024 8:57 AM EST [facility] Comment:The estimated glomer ular [...] - 4.2 g/dL 05/11/2024 8:57 AM EST [facility] A/G Ratio 1.2(L) 1.5 - 3.0 05/11/2024 8:57 AM EST [facility] Blood Structure of peripheral vein / Unknown Venipuncture / Unknown 05/11/2024 8:02 AM EST 05/11/2024 8:15 AM EST Yunior Pérez MD LAB BLOOD ORDERABLES Fin al Result [facility] [address] [place] [address], * LIVER PRE EXTERNAL PANEL (04/16/2024) Sodium [...] Alpha Fetoprotein, Tumor Marker 9.3 [facility] 04/16/2024 Yunior Pérez MD LAB BLOOD ORDERABLES Fin al Result [facility] from Last 3 Months Insurance MEDICARE [facility] MEDICARE [facility] Advance Directives Documents on File Type Date Recorded Patient Parks Recreation Coordinator Expl [facility] Care Proxy 05/15/2024 3:29 PM 05-11 Care Teams Entrepreneurship Program Director Relationship Specialty Start Date End Date Gulshan Chanel [address] [place] [address] PCP - General 04/17/24
== END 2024-05-30 09:52 | disposition home or self-care (01) ==
LOC: HO.MRI 09:51
PROVIDERS: PCP Nurse Practitioner Family; Visit Provider Nurse Practitioner Family
DX: G89.29 Other chronic pain (principal); M54.16 Radiculopathy, lumbar region
CPT/HCPCS: 72148

== ENCOUNTER → 2024-05-30 09:51 | Outpatient (BNV) | payer MEDICARE, MEDICAID, SELFPAY | PROVIDERS: PCP Nurse Practitioner Family; Visit Provider Radiology Diagnostic Radiology | DX: M54.16 Radiculopathy, lumbar region (principal) | CPT/HCPCS: 72148 ==

== ENCOUNTER 2024-05-31 15:36 | Outpatient (AMB) | payer MEDICARE, MEDICAID, SELFPAY ==
[2024-05-31 15:38] VITALS: BP 100/66; PULSE 81; TEMP 36.8; O2SAT 100
--- NOTE | 2024-05-31 15:38 | MHC.PC.OV ---
Vital Signs 05/31/24 15:38 Height 5 ft 10 in BMI Reason not done Patient refused/unable BP 100/66 Blood Pressure Location Lt brachial Position Sitting Pulse 81 Pulse Source Pulse Oximeter Temp 98.2 F Temp Source Oral Pulse Oximetry (%) 100 Oxygen Delivery Method Room Air Intake Visit Reasons: follow up/back pain/mri Intake Note: pt is here for follow up for back pain, mri was done yesterday Allergies No Known Allergies Allergy (Verified 05/31/24 16:53) Medication List - Last Reconciled 05/31/24 by LAUREN Corbett- acetaminophen 650 mg (2 x 325 mg) PO Q6H PRN albuterol sulfate 90 mcg/actuation (Ventolin HFA) 1 puff inhalation QID PRN albuterol sulfate 90 mcg/actuation 2 inhalations inhalation QID PRN 30 days cholecalciferol (vitamin D3) 1,250 mcg PO QWEEK folic acid 1 mg PO DAILY furosemide 40 mg PO DAILY gabapentin 300 mg orally; 2 cap as needed during day and 3 at night 30 days ibuprofen 800 mg PO Q8H PRN 20 days magnesium 250 mg PO BID 30 days melatonin 5 mg PO BEDTIME PRN omeprazole 20 mg PO DAILY 90 days ondansetron 8 mg PO Q12H PRN 14 days potassium chloride ER 20 mEq PO DAILY 90 days ropinirole 0.5 mg PO BEDTIME sildenafil 25 mg PO DAILY PRN spironolactone 100 mg PO DAILY thiamine HCl (vitamin B1) 100 mg PO DAILY tramadol 50 mg PO BID PRN 30 days vitamin A 1 cap PO DAILY vitamin B complex 1 tab PO DAILY 90 days zinc sulfate 50 mg PO DAILY Tobacco use date assessed: 05/31/24 Dental Screening Dental Screen Date: 05/31/24 Did you have a dental visit in the last 12 months?: No Did you have a dental problem in the last 6 months where you did not have access to dental care?: No Was dental information given to patient?: Patient declined HPI follow up/back pain/mri HPI Details Chief Complaint Chronic lower back pain with weakness in bilateral extremities. History of Present Illness The patient is a 54-year-old male presenting with chronic lower back pain and bilateral lower extremity weakness. Historically, the patient experienced disruption in care due to insurance issues, other medical issues, including ETOH abuse and smoking. An MRI indicates L5 compression encroaching on the S1 nerve root. There is a history of liver disease exacerbated by alcohol use and tobacco dependence. Paracentesis has managed the ascites with recent improvements, further seeing a liver specialist. Erectile dysfunction is another concern. NOTE: MRI did note large ascites though patient's abdomen does not seem distended. lastly, pt reported having lesions on his penis for quite some time and he would like these further evaluated Social History - Employment status and details: Not discussed - Housing situation: Not discussed - Substance Use: History of tobacco use, minimal current smoking, and excessive alcohol consumption previously leading to liver issues. - Functional Status: Currently using a wheelchair. - Details on exercise, nutrition, weight management: Not discussed Health Maintenance - continue with cessation of smoking in preparation for potential surgical intervention. - Regular paracentesis has been beneficial for managing ascites. Review of Systems - Neurological: Reports weakness in bilateral lower extremities. - Respiratory: Diminished lung sounds bilaterally. - Genitourinary: Reports erectile dysfunction, genital lesions -denies any n/v, fevers, chills, abd pains Physical Exam General: Cooperative, Orientation: Patient oriented x3 Limitations: Wheelchair-bound, weakness to bilateral extremities Head: Normal to inspection Ears: Hearing grossly normal bilaterally neck: Normal visual inspection and Yes full ROM Respiratory: Diminished breath sounds bilaterally Cardiovascular: Regular rate and rhythm. S1 and S2 GI: Normal to inspection. Soft to palpation and nontender, presence of ascites : multiple condyloma patches noted to penile shaft Skin: No rashes or lesions noted Neuro: Patient oriented x3, positive dorsalis pedis, patellar reflexes 0 bilaterally Extremities: Weakness to bilateral extremities, currently in a wheelchair Results - MRI Findings: Compression of L5 encroaching on the S1 nerve root. Plan 1. Ascites management through continued paracentesis remains crucial. Cessation of smoking is a priority before any surgical procedure. Sildinafil is prescribed for erectile dysfunction, and tramadol is continued for pain management with emphasis on responsible use. 2. referral back to neuro-surg 3. 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 We reviewed the benefits of ongoing paracentesis for ascites and the importance of complete smoking cessation prior to surgery. 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 Follow-up care with a liver specialist is encouraged, and all therapeutic and lifestyle changes were discussed in detail. Patient Instructions - Prepare to follow up with neurosurgery for evaluation of possible surgical options. - Continue paracentesis appointments as directed. - Refrain from smoking prior to the surgical intervention. - Use Sildenafil as prescribed for erectile dysfunction. - Take tramadol only as instructed and avoid driving. - Follow up with your liver specialist as scheduled. [facility] Medical History Screening PSA (prostate specific antigen) Weakness Anemia Elevated liver enzymes Neuropathy Electrolyte imbalance Edema Swelling of both lower extremities Depression COVID-19 virus RNA test result positive at limit of detection Alcohol withdrawal Vomiting Acute alcoholic hepatitis Acute bronchitis Asthma Right hand pain Sciatica Alcohol abuse Lyme disease Autoimmune disease Pancreatitis Surgical History No pertinent past surgical history Family History Father Heart attack Mother No problems noted. Sister No problems noted. Daughter No problems noted. Social History Household Members: Spouse Housing: Homeless Housing Other:: Patient is homeless, living in a small tent with his and dog Are you a primary director career services to a significant other at home: No Do you presently have visiting nurse or other home services: No Alcohol intake: current Alcohol intake frequency: a few times a week Alcohol type: hard liquor Comment: refused bed alarm Patient Tobacco Use Status: Current someday Tobacco user Tobacco use type: Cigarette Cigarettes Per Day: 1 Years Smoked: 41 Packs per year/per ci.05 e-Cigarette/Vaping Use: Never Used Second Hand Smoke Exposure: Yes Substance Use Type: Marijuana Advance Directives Date on File: 09/29/22 service: Yes Current occupational status: unemployed Cognitive needs: No Hearing needs: No Vision needs: No Questionnaire PHQ-9 Over the last 2 weeks, how often have you been bothered by any of the following problems? 1. Little interest or pleasure in doing things: several days 2. Feeling down, depressed, or hopeless: several days 3. Trouble falling or staying asleep, or sleeping too much: more than half the days 4. Feeling tired or having little energy: several days 5. Poor appetite or overeating: not at all 6. Feeling bad about yourself - or that you are a failure or have let yourself or your family down: more than half the days 7. Trouble concentrating on things, such as reading the newspaper or watching television: not at all 8. Moving or speaking so slowly that other people could have noticed. Or the opposite - being so fidgety or restless that you have been moving around a lot more than usual: not at all 9. Thoughts that you would be better off or of hurting yourself in some way: not at all Total score: 7 Depression Screening Interpretation: Negative Depression Screening Done: Yes 29821 - PHQ-9 Billing: Yes Source: Developed by Drs. Jesus Shelton, Angelica Reagan, Víctor Gallardo and colleagues, with an educational stefano from [employer] Thrive Questionnaire Date Thrive assessed: 05/31/24 I am a: Patient What is your living situation today?: I do not have a steady places to live I am staying at a hotel Within the past 12 months, did the food you bought not last and you didn't have the money to get more?: I choose not to answer this question Within the past 12 months, did you worry whether your food would run out before you got money to buy more?: I choose not to answer this question Do you have trouble paying for medicines?: No Do you have trouble getting transportation to medical appointments?: Yes Do you have trouble paying your heating and electricity bill?: I choose not to answer this question Do you have trouble taking care of your child, family member or friend?: No Do you have trouble with day-to-day activities such as bathing, preparing meals, shopping, managing finances, etc.?: Yes Are you currently unemployed and looking for a job?: No Are you interested in more education?: No Currently or been in a relationship where the following occur: No concerns reported THRIVE Score: 2 AUDIT C Alcohol Use Questionnaire (AUDIT-C) 1. How often do you have a drink containing alcohol?: 2-3 times a week 2. How many drinks containing alcohol do you have on a typical day when you are drinking?: 5 or 6 3. How often do you have six or more drinks on one occasion?: Weekly Total Score: 8 Score Reviewed/Action Taken: Yes SILVINA-7 AMB Questionnaire SILVINA-7 Date SILVINA - 7 assessed: 05/31/24 Feeling nervous, anxious, or on edge: 2 = More than half the days Not being able to stop or control worryin = Several days Worrying too much about different things: 2 = More than half the days Trouble relaxin = Several days Being so restless that it is hard to sit still: 0 = Not at all Becoming easily annoyed or irritable: 0 = Not at all Feeling afraid as if something awful might happen: 1 = Several days Total SILVINA-7 score (0-4 normal; 5-9 mild; 10-14 moderate; 15-21 severe): 7 Source: Developed by Drs. Jesus Shelton, Angelica Reagan, Víctor Gallardo and colleagues, with an educational stefano from [employer] SILVINA-7 Assessment Billing SILVINA-7 Assessment Tool: SILVINA-7 Assessment 82697 Physical exam (Primary Care) Vital Signs: Last Vital Signs Temp 98.2 F 05/31/24 15:38 Pulse 81 05/31/24 15:38 BP 100/66 05/31/24 15:38 Pulse Ox 100 05/31/24 15:38 Oxygen Delivery Method Room Air 05/31/24 15:38 Tobacco/Smoking Status: Tobacco use Status Tobacco use date assessed 05/31/24 05/31/24 15:41 Patient Tobacco Use Status Current someday Tobacco 05/31/24 15:41 Tobacco use type Cigarette 05/31/24 15:41 e-Cigarette/Vaping Use Never Used 05/31/24 15:41 PHQ-9: PHQ-9 Score PHQ-9: Total score 7 05/31/24 15:41 Depression Screening Interpretation: Negative Thrive Assessment: Date of Thrive Assessment Date Thrive assessed 05/31/24 05/31/24 15:41 Currently or been in a relationship where the following occur: No concerns reported Coding Level of Care Code Est Pt Level 4 (78218) Diagnoses Smoker F17.200 Weakness R53.1 Chronic back pain M54.9; G89.29 Paresthesia and pain of both upper extremities R20.2; M79.601; M79.602 Nerve root compression G54.9 Alcohol abuse F10.10 Additional Codes SILVINA-7 Assessment Billing - SILVINA-7 Assessment Tool: SILVINA-7 Assessment 05096 ([id number]) PHQ-9 - 86931 - PHQ-9 Billing: Yes ([id number]) Assessment & Plan Assessment & Plan (1) Smoker: Code(s): F17.200 - Nicotine dependence, unspecified, uncomplicated Category: Social Hx (2) Weakness: Code(s): R53.1 - Weakness Category: Medical (3) Chronic back pain: Code(s): M54.9 - Dorsalgia, unspecified; G89.29 - Other chronic pain Category: Medical (4) Paresthesia and pain of both upper extremities: Code(s): R20.2 - Paresthesia of skin; M79.601 - Pain in right arm; M79.602 - Pain in left arm Category: Medical (5) Nerve root compression: Code(s): G54.9 - Nerve root and plexus disorder, unspecified Category: Medical (6) Alcohol abuse: Code(s): F10.10 - Alcohol abuse, uncomplicated Category: Social Hx Plan . Orders: Referrals Lung Cancer Screening Referral F17.200 - Nicotine dependence, unspecified, uncomplicated Neuro Spine Referral F17.200 - Nicotine dependence, unspecified, uncomplicated, G54.9 - Nerve root and plexus disorder, unspecified, G89.29 - Other chronic pain, M54.9 - Dorsalgia, unspecified, M79.601 - Pain in right arm, M79.602 - Pain in left arm, R20.2 - Paresthesia of skin, R53.1 - Weakness Medications: New sildenafil administer 30 minutes to 4 hours before activity 25 mg PO DAILY PRN 10 tabs 1RF sexual activity Changed From tramadol 50 mg PO BID PRN 20 tabs 0RF pain 10 days To tramadol 50 mg PO BID PRN 60 tabs 0RF pain 30 days
--- OUTSIDE RECORDS SUMMARY | 2024-05-31 19:07 | XMS_ITS | Encounter Summary ---
Author Organization [facility] Address [address] [place] [address] Care Team Providers Care Glass Bulb Silverer Name Role Phone Gulshan Chanel Primary Care Provider +1 [phone] Reason for Visit * Transplant (Routine) - Authorized Specialty Diagnoses / Procedures Referred By Billy younger Referred To Contact Transplant Diagnoses Liver Transplant Evaluation Erin Allen MD [address] [address] Phone: tel: fax: [facility] [address] [place] [address] Phone: tel: fax: Referral ID Status Reason Start Date Expiration Date V isits Requested Visits Authorized [id number] Authorized 03/15/2024 03/16/2025 99 99 Encounter Details Date Type Department Care Team (Latest Contact Info) Description 05/11/2024 2:30 PM EST Office Visit [facility] [address] [place] [address] Preeti Mcdaniel MD [address] [place] [address] CoElizabeth MD [address] [place] [address] Special screening examination for infectious diseases (Primary [...] 250 mg by mouth once a day. vfgwzvh-TRMW-arc-qfimk-sxya-vv 0.81-69-327-200 mg capsule 5 mg. omeprazole (PriLOSEC) 20 [...] since 1992- had previously worked in a [employer] company fo 28 years Outdoor activities: hiking and camping states or countries of residence: Born in [facility], currently lives in [place]. Lived in [place] for 2 months, [place] for 1 years, [place] for 1 year, [place]- all during International travel: [place] age 11 service: yes; tours and years include: [employer] [phone] Congregate settings: none Raw foods: none Water [...] all the lab work to result, call photography professor for vaccine history andthen make final vaccine recommendations. Patient and request that I fax list of vaccines to photography professor Recommendations, and Issues Addressed Today: Vaccines to [...] C negative VZV IgG positive Recommend: Called photography professor Dr. Chanel on 05/14/24 for vaccine record and possibility of giving recommended vaccines - awaiting callback Recommend: Hep A series Hep B series MMR 1-2 doses if needed Tdap Shingrix Elizabeth Gonzalez MD Spoke with staff at Dr. Chanel's office on 05/16They will send Mr. Miller to get vaccines at [facility]. Requested that I send lab test results. Elizabeth Gonzalez MD documented in this encounter Plan of Treatment Upcoming Encounters Date Type Department Care Team (Late st Contact Info) Description 06/11/2024 10:30 AM EDT Follow-Up [facility] [address] [place] [address] [phone] Nathan Ortiz MD [address] [place] [address] 06/11/2024 11:00 AM EDT Clinical Support [facility] [address] [place] [address] Scheduled Orders Name Type Priority Associated Diagnoses Orde r Schedule Coccidioides Antibody, IgG/IgM Lab Routine Special screening examination for infectious diseases Encounter for pre-transplant evaluation for liver transplant Expected: 05/11/2024, Expires: 05/11/2025 documented as of this encounter Results * Due to [place] state law, this organization might not be sharing negative HIV tests. * Histoplasma Antibody Panel, CF & ID (05/11/2024 8:02 AM EST) Histoplasma capsulatum yeast phase Ab <1:8 <1:8 NA 05/17/2024 12:21 PM EST [employer] Histoplasma capsulatum mycelial phase Ab <1:8 <1:8 NA 05/17/2024 12:21 PM EST [employer] Comment: Interpretive Criteria: ?<1:8 - Antibody Not [...] analytical performance characteristics have been determined by [facility], [place], [place]. It has not been cleared or approved by the FDA. This assay has been validated pursuant to the CLIA regulations and is used for clinical purposes. Histoplasma capsulatum M Antibody Negative Negative 05/17/2024 12:21 PM EST [employer] Histoplasma capsulatum H Antibody Negative Negative 05/17/2024 12:21 PM EST [employer] Comment: This immunodiffusion assay is highly specific [...] ORDERABLES Final Res ult KIMBERLY LITTLEJOHN (NIEVES) [address] [place], [place] , documented in this encounter Visit Diagnoses Diagnosis Special screening examination for infectious diseases- Primary Screening examination for unspecified infectious disease Encounter for pre-transplant evaluation for liver transplant Cytomegalovirus infection, unspecified cytomegaloviral infection type (HCC) documented in this encounter Care Teams Glass Bulb Silverer Relationship Specialty Start Date End Date Gulshan Chanel [address] [place] [address] PCP - General 04/17/24 documented as of this encounter
--- OUTSIDE RECORDS SUMMARY | 2024-05-31 19:07 | XMS_ITS | Encounter Summary ---
Author Organization [facility] Address [address] [place] [address] Care Team Providers Care Prop Sawyer Name Role Phone Gulshan Chanel Primary Care Provider [phone] Reason for Visit * Transplant (Routine) - Authorized Specialty Diagnoses / Procedures Referred By Billy younger Referred To Contact Transplant Diagnoses Liver Transplant Evaluation Erin Allen MD [address] [facility] [address] [place] [address] Phone: tel: fax: [facility] [address] [place] [address] Phone: tel: fax: Referral ID Status Reason Start Date Expiration Date V isits Requested Visits Authorized [id number] Authorized 03/15/2024 03/16/2025 99 99 Encounter Details Date Type Department Care Team ([facility] st Contact Info) Description 05/11/2024 12:15 PM EST Social Work [facility] [address] [place] [address] Radha Garcia, [address] Transplant Services [address] [address] Social History Tobacco Use Types Packs/Day Years [...] encounter Progress Notes * Radha NullSolitario Garcia, [facility] - 05/11/2024 12:15 PM EST INITIAL LIVER TRANSPLANT PSYCHOSOCIAL EVALUATION Identifying information/referral information: Patient is a 54-year-old male who is here with his Bella and her service dog Lisa for an initial psychosocial evaluation for liver transplant. Patient was informed of the role of transplant social sciences research scientist, purpose of the evaluation and contact information given. Patient reports the cause of his liver disease is drinking whiskey . He reports he was first told about his liver disease around January 2023. 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 Social history: Patient and his Bella live in a hotel in [facility]. They have been their since the beginning of February 2024. Patient and his have been together for 25 years but have been for 7 years. Patient has 1 adult daughter who he does not have any contact with. Prior to living in the hotel patient reports he was living at [facility] [place]. Patient reports this facility closed February 26 due to substandard conditions and subsequently patienthas been in the hotel since then. Patient explains he was at [facility] facility for about a year. During this time, his was staying with her sister in [place]. Prior to being a [facility] patient states he was homeless for a while and was staying with friends and hotels. Patient was born in [place] and raised in [place]. Patient has 2 brothers. One brother lives in [place] and another brother lives in [place]. He is estranged from his brother wholives in [place]. He speaks with his brother Lucas who lives in [place]. Patient has 2 sisters,one is and the other he is estranged from. Patient's mother is 92 years old and [place] [place]. Patient's father when patient was 10 years old. Patient completed high school and has some college credits. Patient reports he spent 6 years in the [employer]. He was not deployed. Patient reports he last worked in 2022. 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 Patient's interest include flying planes, skiing and waterskiing. He also enjoys backpacking,camping and horseback riding. Patient's shinto is Latter-Day. Financial history: Patient reports he is on [...] confirmation that she no longer lives in [place] so can apply for DTA including bob [...] is Medicare part A and B and [employer] standard. Transplant SW educated patient about the importance of notifying the transplant program and of any problems or changes in his insurance to ensure proper coverage for transplant, posttransplant follow-up and posttransplant medications. 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 Patient relies on [employer]/PT 1 transportation to get to medical appointments. [...] alternate support, states she has family in [place] and [place] that may be able to provide support. When transplant SW asked about alternate housing should he no longer be able to afford the hotel, patient states that they have friends or 's family that they could stay with. Substance use/substance treatment: Patient denies any current use of alcohol. Patient reports he last drank January 2023 when he was hospitalized at [facility] and diagnosed with liver disease. Following that hospitalization [facility]was [facility] [place]. Patient reports he used to drink a [...] of applying for housing and informed of Nord application which is a universal application where [...] chose his Bella Miller as his healthcare proxy([phone]). 3. Patient completed a release of information [...] Info) Description 06/11/2024 10:30 AM EDT Follow-Up [facility] [address] [place] [address] Nathan Ortiz MD [address] [place] [address] 06/11/2024 11:00 AM EDT Clinical Support [facility] [address] [place] [address] documented as of this encounter Visit Diagnoses Not on filedocumented in this encounter Care Teams Prop Sawyer Relationship Specialty Start Date End Date Gulshan Chanel [address] [place] [address] PCP - General 04/17/24 documented as of this encounter
--- OUTSIDE RECORDS SUMMARY | 2024-05-31 19:07 | XMS_ITS | Encounter Summary ---
Author Organization [facility] Address [address] [place] [address] Care Team Providers Care Filler Shredding Machine Loader Name Role Phone Gulshan Chanel Primary Care Provider [phone] Reason for Visit * Transplant (Routine) - Authorized Specialty Diagnoses / Procedures Referred By Billy younger Referred To Contact Transplant Diagnoses Liver Transplant Evaluation Erin Allen MD [address] [facility] [address] [place] [address] Phone: tel: fax: [facility] [address] [place] [address] Phone: tel: fax: Referral ID Status Reason Start Date Expiration Date V isits Requested Visits Authorized [id number] Authorized 03/15/2024 03/16/2025 99 99 Encounter Details Date Type Department Care Team ([facility] st Contact Info) Description 05/11/2024 1:00 PM EST Office Visit [facility] [address] [place] [address] Nathan Ortiz MD [address] [place] [address] Encounter for pre-transplant evaluation for chronic liver [...] 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 He was alert and [...] Info) Description 06/11/2024 10:30 AM EDT Follow-Up [facility] [address] [place] [address] Nathan Ortiz MD [address] [place] [address] 06/11/2024 11:00 AM EDT Clinical Support [facility] [address] [place] [address] documented as of this encounter Visit Diagnoses Diagnosis Encounter for pre-transplant evaluation for chronic liver disease- Primary documented in this encounter Care Teams Filler Shredding Machine Loader Relationship Specialty Start Date End Date Gulshan Chanel: [phone] [address] [place] [address] PCP - General 04/17/24 documented as of this encounter
--- OUTSIDE RECORDS SUMMARY | 2024-05-31 19:07 | XMS_ITS | Encounter Summary ---
Author Organization [facility] Address [address] [place] [address] Care Team Providers Care Quarter Trimmer Name Role Phone Gulshan Chanel Primary Care Provider [phone] Reason for Visit * Reason Onset Date Comments Med Refill 05/11/2024 Encounter Details Date Type Department Care Team (Late st Contact Info) Description 05/11/2024 Refill [facility] Transplant Department [address] [place] [address] Alena Olivier Hepatic cirrhosis, unspecified hepatic cirrhosis [...] Info) Description 06/11/2024 10:30 AM EDT Follow-Up [facility] Transplant Services [address] [place] [address] Nathan Ortiz MD [address] [place] [address] 06/11/2024 11:00 AM EDT Clinical Support [facility] [address] [place] [address] documented as of this encounter Visit Diagnoses Diagnosis Hepatic cirrhosis, unspecified hepatic cirrhosis type, unspecified whether ascites present (CMS/HCC) (HCC)- Primary Moderate protein-calorie malnutrition (HCC) documented in this encounter Care Teams Quarter Trimmer Relationship Specialty Start Date End Date Gulshan Chanel [address] [place] [address] PCP - General 04/17/24 documented as of this encounter
--- OUTSIDE RECORDS SUMMARY | 2024-05-31 19:07 | XMS_ITS | Encounter Summary ---
Author Organization [facility] Address [address] [place] [address] Care Team Providers Care Human Service Coordinator Name Role Phone Gulshan Chanel Primary Care Provider [phone]- [phone] Reason for Visit * Transplant (Routine) - Authorized Specialty Diagnoses / Procedures Referred By Billy younger Referred To Contact Transplant Diagnoses Liver Transplant Evaluation Erin Allen MD [address] [facility] [address] [place] [address] Phone: tel: fax: [facility] Transplant [facility] [address] [place] [address] Phone: tel: fax: Referral ID Status Reason Start Date Expiration Date V isits Requested Visits Authorized [id number] Authorized 03/15/2024 03/16/2025 99 99 Encounter Details Date Type Department Care Team (Late st Contact Info) Description 05/11/2024 1:45 PM EST Nutrition [facility] [address] [place] [address] [address] [facility] [place] Social History Tobacco Use Types Packs/Day [...] Info) Description 06/11/2024 10:30 AM EDT Follow-Up [facility]plant [facility] [address] [place] [address] Nathan Ortiz MD [address] [place] [address] 06/11/2024 11:00 AM EDT Clinical Support [facility] Transplant [facility] [address] [place] [address] documented as of this encounter Visit Diagnoses Not on filedocumented in this encounter Care Teams Human Service Coordinator Relationship Specialty Start Date End Date Gulshan Chanel [address] [place] [address] PCP - General 04/17/24 documented as of this encounter
--- OUTSIDE RECORDS SUMMARY | 2024-05-31 19:07 | XMS_ITS ---
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 Care Team Name Role Phone Fax Email Angela Weaver RN Liver Coordinator N/A N/A N/A Yunior Pérez MD Alteration Manager [phone] Rosana [email or web address] Erin Allen MD Referring Physician [phone] [email or web address] Pre-Transplant Referred: 03/15/2024 Evaluation began: 04/17/2024 Appointments (05/03/2024 - 07/01/2024) When With Visit Type Description 05/11/2024 Radiology - Carie Pérez CT Liver 05/11/2024 Transplant - Nicolás Barr Transpla nt Evaluation Visit Awaiting organ transplant (Primary Dx) 05/11/2024 Transplant - [facility] Transplant Evaluation Visit 05/11/2024 Transplant - [...]
--- OUTSIDE RECORDS SUMMARY | 2024-05-31 19:07 | XMS_ITS | Encounter Summary ---
Author Organization [facility] Address [address] [place] [address] Care Team Providers Care Stripper And Opaquer Apprentice Name Role Phone Gulshan Chanel Primary Care Provider [phone] Reason for Visit * Reason Comments Liver Eval * Transplant (Routine) - Authorized Specialty Diagnoses / Procedures Referred By Billy younger Referred To Contact Transplant Diagnoses Liver Transplant Evaluation Erin Allen MD 33[address] [facility] [address] [place] [address] Phone: tel: fax: [facility] [address] [place] [address] Phone: tel: fax: Referral ID Status Reason Start Date Expiration Date V isits Requested Visits Authorized [id number] Authorized 03/15/2024 03/16/2025 99 99 Encounter Details Date Type Department Care Team (Late st Contact Info) Description 05/11/2024 3:15 PM EST Office Visit [facility] [address] [place] [address] Kash Ramirez MD PhD [address] [place] [address] [phone] Alcoholic cirrhosis of liver with ascites (CMS/HCC) [...] 250 mg by mouth once a day. [id number]-IVOI-dxe-tryvp-tfrm-pz 0.69-56-070-200 mg capsule 5 mg. omeprazole (PriLOSEC) 20 [...] expected outcomes for liver transplant at the [facility] and nationally. Specific risks reviewed include: intra-op [...] of which at least 35 minutes in xhsb-xx-cmlo patient encounter. I have seen and evaluated Dangelo Miller and will be providing ongoing care and management for these medical conditions: chronic hepatic failure Kash Ramirez MD PhD documented in this encounter Plan of Treatment Upcoming Encounters Date Type Department Care Team (Late st Contact Info) Description 06/11/2024 10:30 AM EDT Follow-Up [facility] [address] [place] [address] Nathan Ortiz MD [address] [place] [address] 06/11/2024 11:00 AM EDT Clinical Support [facility] [address] [place] [address] documented as of this encounter Visit Diagnoses Diagnosis Alcoholic cirrhosis of liver with ascites (CMS/HCC) (HCC)- Primary Portal hypertension (CMS/HCC) (HCC) Portal hypertension Moderate protein-calorie malnutrition (HCC) Secondary esophageal varices without bleeding (HCC) documented in this encounter Care Teams Stripper And Opaquer Apprentice Relationship Specialty Start Date End Date Gulshan Chanel [address] [place] [address] PCP - General 04/17/24 documented as of this encounter
--- OUTSIDE RECORDS SUMMARY | 2024-05-31 19:07 | XMS_ITS | Encounter Summary ---
Author Organization [facility] Address [address] [place] [address] Care Team Providers Care Water Tanker Driver Name Role Phone Gulshan Chanel Primary Care Provider [phone]- [phone] Reason for Visit * Cardiac Diagnostic Testing [...] COLOR AND CONTRAST Yunior Pérez MD [address] [place] [address] Phone: tel: fax: Referral ID Status Reason Start Date Expiration Date Visits Re quested Visits Authorized [id number] Closed 04/17/2024 10/17/2025 1 1 Encounter Details Date Type Department Care Team (Latest Contact Info) Description 05/11/2024 8:35 AM EST - 05/11/2024 10:27 AM [facility] Hospital Encounter [facility] Cardiac Ultrasound [address] [place], [place] [phone] Yunior Pérez MD [address] [place] [address] Discharge Disposition: Home or Self Care () [...] mg by mouth once a day. 04/24/2024 [id number]-MNSM-pcg-nelson er-hops-lm [id number] mg capsule 5 mg. 10/11/2023 omeprazole (PriLOSEC) [...] Info) Description 06/11/2024 10:30 AM EDT Follow-Up [facility] Liver Transplant Services [address] [place] [address] Nathan Ortiz MD [address] [place] [address] 06/11/2024 11:00 AM EDT Clinical Support [facility] Transplant Services [address] [place] [address] documented as of this encounter Procedures * Due to [facility] law, this organization might not be sharing negative HIV tests. Procedure Name Priority Date/Time Associated Diagnosis Comments TRANSTHORACIC ECHO (TTE) COMPLETE Routine 05/11/2024 9:00 AM EST Encounter for pre-transplant evaluation for liver transplant documented in this encounter Results * Due to [place] [employer] law, this organization might not be sharing [...] BSA 1.85 RIGHT ATRIAL PRESSURE 3 mmHg [facility] RV TISSUE DOPPLER S' 12.0 cm/s LV [...] Myocardial deformation imaging was performed using [employer] [place]. During the study the apical, parasternal, subcostal and suprasternal view was captured. Overall the study quality was adequate. Prior Study No prior study available for comparison. STRESS ECHO OVERALL FINDINGS Normal RV size and systolic function. No significant valvular disease identified. Yunior Pérez MD CV ECHO PROCEDURES Final Result documented in this encounter Visit Diagnoses Not on filedocumented in this encounter Care Teams Water Tanker Driver Relationship Specialty Start Date End Date Gulshan Chanel [address] [place] [address] PCP - General 04/17/24 documented as of this encounter
--- OUTSIDE RECORDS SUMMARY | 2024-05-31 19:07 | XMS_ITS | Encounter Summary ---
Author Organization [facility] Address [address] [place] [address] Care Team Providers Care Tail End Rider Name Role Phone Gulshan Chanel Primary Care Provider [phone]- [phone] Encounter Details Date Type Department Care Team (Late st Contact Info) Description 05/15/2024 Results Follow-Up [facility] Transplant Services [address] [place] [address] Angela Weaver RN Social History Tobacco Use [...] Follow-Up [facility] Transplant [facility] [address] [place] [address] [phone] Nathan Ortiz MD [address] [place], [place] [phone] 06/11/2024 11:00 AM EDT Clinical Support [facility] Transplant Services [address] [place] [address] documented as of this encounter Visit Diagnoses Not on filedocumented in this encounter Care Teams Tail End Rider Relationship Specialty Start Date End Date Gulshan Chanel [address] [place] [address] PCP - General 04/17/24 documented as of this encounter
--- OUTSIDE RECORDS SUMMARY | 2024-05-31 19:07 | XMS_ITS | Encounter Summary ---
Author Organization [facility] Address [address] [place] [address] Care Team Providers Care Tip Length Checker Name Role Phone Gulshan Chanel Primary Care Provider +1- [phone] Encounter Details Date Type Department Care Team (Late st Contact Info) Description 05/01/2024 Telephone [facility] Transplant Department [address] [place] [address] Angela Weaver RN Social History Tobacco Use [...] Info) Description 06/11/2024 10:30 AM EDT Follow-Up [facility] Liver Transplant Services [address] [place] [address] Nathan Ortiz MD [address] [place] [address] 06/11/2024 11:00 AM EDT Clinical Support [facility] Liver Transplant Services [address] [place] [address] documented as of this encounter Visit Diagnoses Not on filedocumented in this encounter Care Teams Tip Length Checker Relationship Specialty Start Date End Date Gulshan Chanel [address] [place] [address] PCP - General 04/17/24 documented as of this encounter
--- OUTSIDE RECORDS SUMMARY | 2024-05-31 19:07 | XMS_ITS | Encounter Summary ---
Author Organization [facility] Address [address] [place] [address] Care Team Providers Care Senior Marketing Engineer Name Role Phone Gulshan Chanel Primary Care Provider +1- [phone] Encounter Details Date Type Department Care Team (Late st Contact Info) Description 05/16/2024 Orders Only [facility] Transplant Department [address] [place] [address] Angela Weaver RN Alcoholic cirrhosis of liver [...] Description 06/11/2024 10:30 AM EDT Follow-Up [facility] Liver Transplant Services [address] [place] [address] Nathan Ortiz MD [address] [place] [address] 06/11/2024 11:00 AM EDT Clinical Support [facility] Liver Transplant Services [address] [place] [address] Scheduled Orders Name Type Priority Associated Diagnoses [...] Primary documented in this encounter Care Teams Senior Marketing Engineer Relationship Specialty Start Date End Date Gulshan Chanel [address] [place] [address] PCP - General 04/17/24 documented as of this encounter
--- OUTSIDE RECORDS SUMMARY | 2024-05-31 19:07 | XMS_ITS | Encounter Summary ---
Author Organization [facility] Address [address] [place] [address] Care Team Providers Care In House Cra Name Role Phone Gulshan Chanel Primary Care Provider +1- [phone] Encounter Details Date Type Department Care Team (Late st Contact Info) Description 05/16/2024 Telephone [facility] [address] [place] [address] Letter[employer] Press Set Up Operator: Yunior Bravo MD [address] [place] [address] Social History Tobacco Use Types Packs/Day [...] something and requesting a call back at [phone] * Telephone Encounter - Yunior Pérez MD - 05/16/2024 1:15 PM EST Spoke with Dangelo to review labs. Will send vitamin replacements for zinc, vitamin A, and D. Discussed mildly positive PEth. He will stop cooking with any wine. Denies consuming alcohol. Hyponatremia to 127 noted. He will get labs done at [facility] the week of 05/28. This will include [...] Info) Description 06/11/2024 10:30 AM EDT Follow-Up [facility] Liver Transplant Services [address] [place] [address] Nathan Ortiz MD [address] [place] [address] 06/11/2024 11:00 AM EDT Clinical Support [facility] Liver Transplant Services [address] [place] [address] documented as of this encounter Visit Diagnoses Not on filedocumented in this encounter Care Teams In House Cra Relationship Specialty Start Date End Date Gulshan Chanel [address] [place] [address] PCP - General 04/17/24 documented as of this encounter
--- OUTSIDE RECORDS SUMMARY | 2024-05-31 19:07 | XMS_ITS | Encounter Summary ---
Author Organization [facility] Address [address] [place] [address] Care Team Providers Care Runstitching Machine Operator Name Role Phone Gulshan Chanel Primary Care Provider +1- [phone] Encounter Details Date Type Department Care Team (Late st Contact Info) Description 04/17/2024 Orders Only [facility] Nuclear Medicine [address] [place] [address] Nurys Rutherford MD [address] [place] [address] Social History Tobacco Use Types Packs/Day Years [...] Info) Description 06/11/2024 10:30 AM EDT Follow-Up [facility] Liver Transplant Services [address] [place] [address] Nathan Ortiz MD [address] [place] [address] 06/11/2024 11:00 AM EDT Clinical Support [facility] Liver Transplant Services [address] [place] [address] documented as of this encounter Visit Diagnoses Not on filedocumented in this encounter Care Teams Runstitching Machine Operator Relationship Specialty Start Date End Date Gulshan Chanel [address] [place] [address] PCP - General 04/17/24 documented as of this encounter
--- OUTSIDE RECORDS SUMMARY | 2024-05-31 19:07 | XMS_ITS | Encounter Summary ---
Author Organization [facility] Address [address] [place] [address] Care Team Providers Care Set Up Mechanic Coating Machines Name Role Phone Gulshan Chanel Primary Care Provider +1- [phone] Encounter Details Date Type Department Care Team (Late st Contact Info) Description 05/24/2024 Telephone [facility] Transplant Department [address] [place] [address] Angela Weaver RN Social History Tobacco Use [...] encounter Miscellaneous Notes * Telephone Encounter - Blnaca Wilkins - 05/24/2024 2:55 PM EST Confirmed with DIANNE Pierson appt at [facility] on 05/28 at 9:50 NPO 4 hours no caffeine for 12 hours . Provided [facility] number [phone] documented in this encounter Plan of Treatment Upcoming Encounters Date Type Department Care Team (Late st Contact Info) Description 06/11/2024 10:30 AM EDT Follow-Up [facility] Liver Transplant Services [address] [place] [address] Nathan Ortiz MD [address] [place] [address] 06/11/2024 11:00 AM EDT Clinical Support [facility] Liver Transplant Services [address] [place] [address] documented as of this encounter Visit Diagnoses Not on filedocumented in this encounter Care Teams Set Up Mechanic Coating Machines Relationship Specialty Start Date End Date Gulshan Chanel [address] [place] [address] PCP - General 04/17/24 documented as of this encounter
--- OUTSIDE RECORDS SUMMARY | 2024-05-31 19:07 | XMS_ITS | Encounter Summary ---
Author Organization [facility] Address [address] [place] [address] Care Team Providers Care Television Specialist Name Role Phone Gulshan Chanel Primary Care Provider +1 [phone] Reason for Visit * Reason Comments Liver Eval * Transplant (Routine) - Authorized Specialty Diagnoses / Procedures Referred By Billy younger Referred To Contact Transplant Diagnoses Liver Transplant Evaluation Erin Allen MD [address] [facility] [address] [place] [address] Phone: tel: fax: [facility] Liver Transplant Services [address] [place] [address] Phone: tel: fax: Referral ID Status Reason Start Date Expiration Date V isits Requested Visits Authorized [id number] Authorized 03/15/2024 03/16/2025 99 99 Encounter Details Date Type Department Care Team (Late st Contact Info) Description 05/11/2024 11:45 AM EST Office Visit [facility] Liver Transplant Services [address] [place] [address] Evelyn Barr RN Awaiting organ transplant (Primary [...] Description 06/11/2024 10:30 AM EDT Follow-Up [facility] Liver Transplant Services [address] [place] [address] Nathan Ortiz MD [address] [place] [address] 06/11/2024 11:00 AM EDT Clinical Support [facility] Liver Transplant Services [address] [place] [address] documented as of this encounter Visit Diagnoses Diagnosis Awaiting organ transplant- Primary Awaiting organ transplant status documented in this encounter Care Teams Television Specialist Relationship Specialty Start Date End Date Gulshan Chanel [address] [place] [address] PCP - General 04/17/24 documented as of this encounter
--- OUTSIDE RECORDS SUMMARY | 2024-05-31 19:07 | XMS_ITS | Encounter Summary ---
Author Organization [facility] Address [address] [place] [address] Care Team Providers Care Assistant Therapy Aide Name Role Phone Gulshan Chanel Primary Care Provider +1- [phone] Reason for Referral * Cardiac Diagnostic Testing [...] DOPPLER, COLOR AND CONTRAST Carolin Pleitez MD [address] [place] [address] Phone: tel: fax: Referral ID Status Reason Start Date Expiration Date Visits Re quested Visits Authorized [id number] Closed 04/17/2024 10/17/2025 1 1 * Cardiac Diagnostic Testing (Routine) - Authorized Specialty Diagnoses / Procedures Referred By Billy younger Referred To Contact Diagnoses Encounter for pre-transplant evaluation for liver transplant Procedures ECG 12 lead Carolin Pleitez MD [address] [place] [address] Phone: tel: fax: Referral ID Status Reason Start Date Expiration Date V isits Requested Visits Authorized [id number] Authorized 04/17/2024 10/17/2025 1 1 * MRI/CAT/PET Scan (Routine) - Closed Specialty Diagnoses / Procedures Referred By Billy younger Referred To Contact Diagnoses Encounter for pre-transplant evaluation for liver transplant Procedures CT 3 Phase Liver Mass With Pelvis Carolin Pleitez MD [address] [place] [address] Phone: tel: fax: Referral ID Status Reason Start Date Expiration Date Visits Re quested Visits Authorized [id number] Closed 04/17/2024 10/17/2025 1 1 * MRI/CAT/PET Scan (Routine) - Closed Specialty Diagnoses / Procedures Referred By Billy younger Referred To Contact Diagnoses Encounter for pre-transplant evaluation for liver transplant Procedures CT CHEST W CONTRAST Carolin Pleitez MD [address] [place] [phone] Phone: tel: fax: Referral ID Status Reason Start Date Expiration Date Visits Re quested Visits Authorized [id number] Closed 04/17/2024 10/17/2025 1 1 Reason for Visit * Transplant (Routine) - Authorized Specialty Diagnoses / Procedures Referred By Billy younger Referred To Contact Transplant Diagnoses Liver Transplant Evaluation Erin Allen MD [address] [facility] [address] [place] [address] Phone: tel: fax: [facility] Liver Transplant Services [address] [place] [address] Phone: tel: fax: Referral ID Status Reason Start Date Expiration Date V isits Requested Visits Authorized [id number] Authorized 03/15/2024 03/16/2025 99 99 Encounter Details Date Type Department Care Team (Late st Contact Info) Description 04/17/2024 12:00 PM EST Evaluation [facility] Liver Transplant Services [address] [place] [address] Angela Weaver RN Encounter for pre-transplant evaluation [...] written and audiovisual materials. Patient viewed the [facility] Liver Transplant Education Video and had [...] about Multiple Listing and Waiting Time Transfer -[facility] transplant outcomes from [facility] released on 03/27/2024 -[facility] Liver Transplant Initial Consent for Evaluation -Information for Transplant Patients: Viral Infections and Increased Risk Donors -Business card with contact information for brokerage coordinator and other steam table worker contact information. -Authorization for verbal communications -Authorization [...] Info) Description 06/11/2024 10:30 AM EDT Follow-Up [facility] Liver Transplant Services [address] [place] [address] Nathan Ortiz MD [address] [place] [address] 06/11/2024 11:00 AM EDT Clinical Support [facility] Liver Transplant Services [address] [place] [address] Scheduled Orders Name Type Priority Associated Diagnoses Orde r Schedule ECG 12 lead ECG Routine Encounter for pre-transplant evaluation for liver transplant 1 Occurrences starting 04/17/2024 until 04/17/2025 documented as of this encounter Procedures * Due to [place] [employer] law, this organization might not be sharing [...] in this encounter Results * Due to [place] [employer] law, this organization might not be sharing [...] obtain the completed interpretation. ? Workstation ID: [id number] Up-to-date CT equipment and radiation dose reduction techniques were employed. CTDIvol: 3.0 - 14.6 mGy. DLP: 1699 mGy-cm. ??The following accession numbers are related to this dose report [id number]: [id number] [facility] 05/14/2024 7:59 PM EST EXAMINATION: CT 3 [...] image 107 series 10. Resulting Agency Comment [id number] Procedure Note Christen Aviles MD - 05/14/2024 [...] 3. Cholelithiasis and choledocholithiasis. Punctate calculus seen kowup142 series 4 within the distal CBD. Can [...] possible to obtain thecompleted interpretation. Workstation ID: [id number] Up-to-date CT equipment and radiation dose reduction techniques wereemployed. CTDIvol: 3.0 - 14.6 mGy. DLP: 1699 mGy-cm. The followingaccession numbers are related to this dose report [id number]: [id number] Carolin Pleitez MD IMG CT PROCEDURES Final [...] obtain the completed interpretation. ? Workstation ID: [id number] Up-to-date CT equipment and radiation dose reduction techniques were employed. CTDIvol: 3.0 - 14.6 mGy. DLP: 1699 mGy-cm. ??The following accession numbers are related to this dose report [id number]: [id number] Narrative 05/17/2024 4:11 PM EST Indication: ??pre [...] vertebral disease. Bilateral gynecomastia. Resulting Agency Comment [id number] Procedure Note Sidney Delatorre MD PhD - [...] possible to obtain thecompleted interpretation. Workstation ID: [id number] Up-to-date CT equipment and radiation dose reduction techniques wereemployed. CTDIvol: 3.0 - 14.6 mGy. DLP: 1699 mGy-cm. The followingaccession numbers are related to this dose report [id number]: [id number] Carolin Pleitez MD IM CT PROCEDURES Final [...] BSA 1.85 RIGHT ATRIAL PRESSURE 3 mmHg [facility] RV TISSUE DOPPLER S' 12.0 cm/s LV [...] Doppler. Myocardial deformation imaging was performed using [employer] [place]. During the study the apical, parasternal, subcostal [...] Primary documented in this encounter Care Teams Assistant Therapy Aide Relationship Specialty Start Date End Date Christianmendez Gulshan García [address] [place] [address] PCP - General 04/17/24 documented as of this encounter
--- OUTSIDE RECORDS SUMMARY | 2024-05-31 19:07 | XMS_ITS | Encounter Summary ---
Author Organization [facility] Address [address] [place] [address] Care Team Providers Care Gear Tooth Grinding Machine Operator Name Role Phone Gulshan Chanel Primary Care Provider +1 [phone] Encounter Details Date Type Department Care Team (Late st Contact Info) Description 05/16/2024 Telephone [facility] Transplant Department [address] [place] [address] [phone] Angela Weaver RN Social History Tobacco Use [...] Description 06/11/2024 10:30 AM EDT Follow-Up [facility] Liver Transplant Services [address] [place] [address] Nathan Ortiz MD [address] [place] [address] 06/11/2024 11:00 AM EDT Clinical Support [facility] Liver Transplant Services [address] [place] [address] documented as of this encounter Visit Diagnoses Not on filedocumented in this encounter Care Teams Gear Tooth Grinding Machine Operator Relationship Specialty Start Date End Date Gulshan Chanel [address] [place] [address] PCP - General 04/17/24 documented as of this encounter
--- OUTSIDE RECORDS SUMMARY | 2024-05-31 19:07 | XMS_ITS | Encounter Summary ---
Author Organization [facility] Address [address] [place] [address] Care Team Providers Care Guest Services Director Name Role Phone Gulshan Chanel Primary Care Provider +1- [phone] Reason for Visit * MRI/CAT/PET Scan (Routine) - Closed Specialty Diagnoses / Procedures Referred By Billy younger Referred To Contact Diagnoses Encounter for pre-transplant evaluation for liver transplant Procedures CT 3 Phase Liver Mass With Pelvis Yunior Pérez MD [address] [place] [address] Phone: tel: fax: Referral ID Status Reason Start Date Expiration Date Visits Re quested Visits Authorized [id number] Closed 04/17/2024 10/17/2025 1 1 Encounter Details Date Type Department Care Team (Latest Contact Info) Description 05/11/2024 10:28 AM EST - 05/11/2024 11:59 PM EST Hospital Encounter [facility] CT Scan [address] [place] [address] Yunior Pérez MD [address] [place] [address] Discharge Disposition: Home or Self Care () [...] by mouth 2 (two) times a day. 36760 mL 3 05/11/2024 furosemide (LASIX) 40 mg tablet 03/29/2024 gabapentin (NEURONTIN) 300 mg capsule 03/29/2024 ibuprofen (MOTRIN) 800 mg tablet 03/29/2024 lactulose 10 gram/15 mL solution SMARTSI Milliliter(s ) By Mouth Twice Daily 03/12/2024 magnesium oxide 250 mg magnesium tablet Take 250 mg by mouth once a day. 04/24/2024 avadcok-MLMQ-lrs-nelson er-hops-lm [id number] mg capsule 5 mg. 10/11/2023 omeprazole (PriLOSEC) [...] Description 06/11/2024 10:30 AM EDT Follow-Up [facility] Liver Transplant Services [address] [place] [address] Nathan Ortiz MD [address] [place] [address] 06/11/2024 11:00 AM EDT Clinical Support [facility] Liver Transplant Services [address] [place] [address] documented as of this encounter Procedures * Due to [place] state law, this organization might not be [...] mL documented in this encounter Care Teams Guest Services Director Relationship Specialty Start Date End Date Gulshan Chanel [address] [place] [address] PCP - General 04/17/24 documented as of this encounter
--- OUTSIDE RECORDS SUMMARY | 2024-05-31 19:07 | XMS_ITS | Encounter Summary ---
Author Organization [facility] Address [address] [place] [address] Care Team Providers Care Metrology Engineer Name Role Phone Gulshan Chanel Primary Care Provider +1- [phone] Reason for Referral * Cardiac Diagnostic Testing (Routine) - Closed Specialty Diagnoses / Procedures Referred By Billy younger Referred To Contact Diagnoses Encounter for pre-transplant evaluation for liver transplant Procedures Echocardiogram dobutamine stress test (DSE) Yunior Pérez MD [address] [place] [address] Phone: tel: fax: Referral ID Status Reason Start Date Expiration Date Visits Re quested Visits Authorized [id number] Closed 05/18/2024 11/17/2025 1 1 Encounter Details Date Type Department Care Team (Late st Contact Info) Description 05/18/2024 Orders Only [facility] Transplant Department [address] [place], [place] [phone] Angela Weaver RN Encounter for pre-transplant evaluation [...] Description 06/11/2024 10:30 AM EDT Follow-Up [facility] Liver Transplant Services [address] [place] [address] Nathan Ortiz MD [address] [place] [address] 06/11/2024 11:00 AM EDT Clinical Support [facility] Liver Transplant Services [address] [place] [address] Scheduled Orders Name Type Priority Associated Diagnoses Order Schedule Echocardiogram dobutamine stress test (DSE) Stress Echocardiography Routine Encounter for pre-transplant evaluation for liver transplant Expected: 05/18/2024, Expires: 05/18/2026 documented as of this encounter Visit Diagnoses Diagnosis Encounter for pre-transplant evaluation for liver transplant- Primary documented in this encounter Care Teams Metrology Engineer Relationship Specialty Start Date End Date Gulshan Chanel [address] [place] [address] PCP - General 04/17/24 documented as of this encounter
--- OUTSIDE RECORDS SUMMARY | 2024-05-31 19:07 | XMS_ITS | Encounter Summary ---
Author Organization [facility] Address [address] [place] [address] Care Team Providers Care Primary Care Sales Representative Name Role Phone Gulshan Chanel Primary Care Provider +1- [phone] Encounter Details Date Type Department Care Team (Late st Contact Info) Description 05/16/2024 Results Follow-Up [facility] Liver Transplant Services [address] [place] [phone] Angela Weaver RN Social History Tobacco Use [...] Info) Description 06/11/2024 10:30 AM EDT Follow-Up [facility] Liver Transplant Services [address] [place] [address] Nathan Ortiz MD [address] [place] [address] 06/11/2024 11:00 AM EDT Clinical Support [facility] Liver Transplant Services [address] [place] [address] documented as of this encounter Visit Diagnoses Not on filedocumented in this encounter Care Teams Primary Care Sales Representative Relationship Specialty Start Date End Date Gulshan Chanel [address] [place] [address] PCP - General 04/17/24 documented as of this encounter
--- OUTSIDE RECORDS SUMMARY | 2024-05-31 19:07 | XMS_ITS | Data Portability ---
Author Organization HENOK mcdaniels [facility] Address [address] [place] [address] Care Team Providers Care Retail Specialist Name Role Phone [facility] Primary Care Provider Assessment No assessment recorded. Plan of Treatment Reminders Order Date Submit Date Provider Last Modified By Organization Details Last Modified Time Details Appointments None recorded. Lab urinalysis , dipstick 2022 023 [email or web address] _[facility], [facility] [place], [address], 3 08:58:12 culture, urine 2022 023 [place] [facility], [address] [place] [address], [place], [address], 3 08:06:03 Referral None recorded. Procedures None recorded. Surgeries None recorded. Imaging None recorded. Medication Orders Macrobid 100 mg capsule 2022 023 [id number], [address] [place], [address], 3 08:58:11 Patient TargetsNo targets recorded. Patient Instructions Encounter Date Encounter Id Patient Instructions Last Modified By Organization Details Last Modified Time 09/25/2022 [id number] We are going to treat you for a presumed urinary tract infection. You have been prescribed an antibiotic, ensure you take this as prescribed and for its intended length of time. It is important you ensure you are drinking plenty of fluids, especially water, to avoid dehydration. Drinking water helps dilute your urine and ensures that you'll urinate frequently, allowing bacteria to be flushed from your urinary tract. Should your symptoms persist despite taking your antibiotic, you should follow up with your primary care provider or [facility] if they are unavailable. [email or web address] Not available 09/25/2022 08:57:43 Reason for Referral None Reported. Results Created Date Observation Date Name Description Value Unit Range Abnormal Flag Note LastModifiedBy Organization Detail LastModifiedTime 09/26/1909/27/2022 URINE CULTU RETAMMIE NE urine culture, routine FINAL REPORT Not Available [facility] ([facility]) [address], [place], [address], 09/27/2022 08:06:03 09/26/1909/27/2022 URINE CULTU RETAMMIE NE result 1 NO GROWTH Not Available [facility] ([facility]) [address], [place], [address], 09/27/2022 08:06:03 09/26/1909/25/2022 urina lysis , dipst ick Unknown Analyte Normal = light yellow Not Available [address] [place], [address], 09/25/2022 08:38:49 09/26/1909/25/2022 urina lysis , dipst ick Unknown Analyte Normal = clear Not Available [address] [place] [address] [place], [address], 09/25/2022 08:38:49 09/26/1909/25/2022 urina lysis , dipst ick Unknown Analyte Normal = negati ve Not Available [address] [place] [address], [place], [address], 09/25/2022 08:38:49 09/26/1909/25/2022 urina lysis , dipst ick Unknown Analyte Normal = Negati ve Not Available [address] [place] [address] [place], [address], 09/25/2022 08:38:49 09/26/1909/25/2022 urina lysis , dipst ick Unknown Analyte Normal = Negati ve Not [facility] [address], [place], [address], 09/25/2022 08:38:49 09/26/1909/25/2022 urina lysis , dipst ick Unknown Analyte Normal = 1.010, 1.015, 1.020 Not Available [address] [place] [address], [place], [address], 09/25/2022 08:38:49 09/26/1909/25/2022 urina lysis , dipst ick Unknown Analyte Normal = Negati ve Not Available [address] [place] [address], [place], [address], 09/25/2022 08:38:49 09/26/1909/25/2022 urina lysis , dipst ick Unknown Analyte Normal = 6.5, 7.0, 7.5, 8.0 Not Available [address] [place] [address], [place], [address], 09/25/2022 08:38:49 09/26/1909/25/2022 urina lysis , dipst ick Unknown Analyte Normal = Negati ve Not Available [address] [place] [address], [place], [address], 09/25/2022 08:38:49 09/26/1909/25/2022 urina lysis , dipst ick Unknown Analyte Normal = 0.2, 1.0 Not Available [address] [place] [address], [place], [address], 09/25/2022 08:38:49 09/26/1909/25/2022 urina lysis , dipst ick Unknown Analyte Normal = Negati ve Not Available vamsi alicia [address], [place], [address], 09/25/2022 08:38:49 09/26/1909/25/2022 urina lysis , dipst ick Unknown Analyte Normal = Negati ve Not Available vamsi alicia [address], [place], [address], 09/25/2022 08:38:49 09/26/1909/25/2022 urina lysis , dipst ick Unknown Analyte Cydney Not Available sacha [address], [place], [address], 09/25/2022 08:38:49 09/26/1909/25/2022 urina lysis , dipst ick Unknown Analyte Slight ly Cloudy Not Available vamsi alicia [address], [place], [address], 09/25/2022 08:38:49 09/26/1909/25/2022 urina lysis , dipst ick Unknown Analyte 100 mg/dL Not Available vamsi alicia [address], [place], [address], 09/25/2022 08:38:49 09/26/1909/25/2022 urina lysis , dipst ick Unknown Analyte Modera te Not Available vamsi alicia [address], [place], [address], 09/25/2022 08:38:49 09/26/1909/25/2022 urina lysis , dipst ick Unknown Analyte 15 mg/dL Not Available vamsi alicia [address], [place], [address], 09/25/2022 08:38:49 09/26/1909/25/2022 urina lysis , dipst ick Unknown Analyte 1.015 Not Available sahca luc[address], [place], [address], 09/25/2022 08:38:49 09/26/19 23 09/25/2022 urina lysis , dipst ick Unknown Analyte Negati ve Not Available vamsi alicia [address], [place], [address], 09/25/2022 08:38:49 09/26/1909/25/2022 urina lysis , dipst ick Unknown Analyte 6.0 Not Available sacha [address], [place], [address], 09/25/2022 08:38:49 09/26/1909/25/2022 urina lysis , dipst ick Unknown Analyte 30 mg/dL Not Available vamsi alicia [address], [place], [address], 09/25/2022 08:38:49 09/26/1909/25/2022 urina lysis , dipst ick Unknown Analyte >=8.0 E.U./d L Not Available vamsi alicia [address], [place], [address], 09/25/2022 08:38:49 09/26/1909/25/2022 urina lysis , dipst ick Unknown Analyte Negati ve Not Available vamsi alicia [address], [place], [address], 09/25/2022 08:38:49 09/26/19 23 09/25/2022 urina lysis , dipst ick Unknown Analyte Negati ve Not Available vamsi alicia [address], [place], [address], 09/25/2022 08:38:49 Result Notes None recorded. Problems Name Problem SNOMED Code Status Onset Date Resolution Date Notes Provider Name and Address Organization Details Recorded Time Degeneration of intervertebral disc 59728413 Active 2022 HENOK Patterson [facility] 3 08:36:07 Gastroesophage al reflux disease 066839194 Active 2022 HENOK Patterson [facility] 3 08:36:13 Problem Notes None recorded. Medical Equipment None Reported. Allergies No known drug allergies Medications Name Sig Start Date Stop Date Status Note LastModified by Organization Details LastModified Time cyclobenzap rine 10 mg tablet TAKE 1 TABLET BY MOUTH 3 TIMES DAILY NEEDED FOR PAIN/MUSC LE SPASM FOR 20 DAYS. 09/25 completed Not Available Not Available Not Available ibuprofen 800 mg tablet TAKE 1 TABLET BY MOUTH EVERY 8 HOURS NEEDED FOR PAIN X 20 DAYS. DO NOT COMBINE WITH PREDNISON E. active Not Available Not Available No t Available pantoprazol e 20 mg tablet,ugo yed release TAKE 1 TABLET BY MOUTH ONCE DAILY active Not Available Not Available No t Available Macrobid 100 mg capsule Take 1 capsule every 12 hours by oral route with meals for 7 days. 2022 active Not Available Not Available Not Avai lable omeprazole 20 mg capsule,del ayed release TAKE 1 CAPSULE BY MOUTH EVERY DAY FOR 90 DAYS active Not Available Not Available No t Available furosemide 20 mg tablet TAKE 1 TABLET BY MOUTH EVERY DAY FOR 6 DAYS 09/25 completed Not Available Not Available Not Available Ventolin HFA 90 mcg/actuati on aerosol inhaler TAKE 2 INHALTION S 4 TIMES DAILY NEEDED FOR SHORTNESS OF BREATH OR WHEEZING X30 DAYS active Not Available Not Available No t Available oxycodone 5 mg tablet TAKE 1 TABLET BY MOUTH EVERY DAY NEEDED FOR PAIN FOR 7 DAYS 09/25 completed Not Available Not Available Not Available lidocaine 1.8 % topical patch APPLY 1 PATCH BY TOPICAL ROUTE ONCE DAILY (MAY WEAR UP TO 12HOURS.) active Not Available Not Available No t Available Vitals Date Recorded Body height Body mass index (BMI) Body weight Oxygen saturation Oxygen saturation in Arterial blood by Pulse oximetry Heart rate Respiratory rate Body temperature Systolic blood pressure Diastolic blood pressure Provider Name and Address Organization Details Last Updated DateTime 3 177.8 cm 25.8 kg/m2 20066.6 3 g 95 % 95 % 79 /min 18 /min 97.9 [degF] 111 mm[Hg] 78 mm[Hg] ROHITH Ly [facility] 3 08:38:18 Social History Question Answer Notes LastModified by Organizat ion Details LastModified Time Tobacco Smoking Status Current Every Day Smoker HENOK Patterson [facility] 09/25/2022 08:36:27 What Is Your Level Of Alcohol Consumption? Occasional Information not available 09/25/2022 Are You Currently Employed? Yes Information not available 09/25/2022 Have You Had Direct Contact, Or Contact During Intimacy, With Monkeypox Rash, Scabs, Or Body Fluids From A Person With Monkeypox? No Information not available 09/25/2022 Do You Use Any Illicit Or Recreational Drugs? No Information not available 09/25/2022 Have You Recently Traveled Abroad? No Information not available 09/25/2022 Are You Currently In School? No Information not available 09/25/2022 Sex: Unknown Functional Status None recorded. Mental Status None recorded. Family History Relationship Description Onset Age of this Age Resolved Age Notes LastModified by Organization Details LastModified Time Father No current problems or disability Not available 10/2022 08:36:33 Mother No current problems or disability Not available 10/2022 08:36:33 Medical History No medical history recorded. Immunizations Vaccine Type Date Status Note Provider Nam e and Address Organization Details Recorded Time COVID-19, mRNA, LNP-S, PF, 100 mcg/0.5mL dose or 50 mcg/0.25mL dose 1 completed HENOK Patterson [facility] 09/25/2022 08:34:22 pneumococcal polysaccharide PPV23 2 completed HENOK Patterson [facility] 09/25/2022 08:34:22 Influenza, split virus, trivalent, PF 2 completed ROHITH [place] - [facility] 09/25/2022 08:34:22 Influenza, split virus, trivalent, PF 5 completed ROHITH [place] - [facility] 09/25/2022 08:34:22 Past Encounters Encounter ID Performer Location Encounter Start Date Encounter Closed Date Diagnosis/Indication Diagnosis SNOMED-CT Code Diagnosis ICD10 Code Diagnosis Note [id number] [place] [address]_[facility] [address] [place] [address] 09/25/2022 08:12:41 09/25/2022 09:02:39 Acute urinary tract infection 170090411 N39.0 Health Concerns Section Related Observation LastModified by Organization Detai ls LastModified Time None Recorded Concern Status LastModified by Organization Details LastModified Time None Recorded Advance Directives Directive None Recorded Payers Encounter Date Sequence Insurance Name Policy Number Policy Vences Covered Member ID Vences Member ID Guarantor Name 09/25/2022 1 [facility] [facility] PL[facility] (MEDICAID HMO) EASTON Miller [id number] Tho Miller Notes Date Note Type Note Provider Name and Address Organization Details Recorded Time 3 text/html Urinary Problems-MaleReported bypatient.source of patient informationInformation obtained from patient; Patient arrived at Urgent Care ambulatory; learning styles: auditory Location:penis Quality:burning Severity:mild Onset/Timing:worse; gradual Context:no sexual dysfunction;sexually active Associated Symptoms:no penile lesions/sores; no scrotal lesions/sores; no penile discharge; no flank pain; no jaundice; no blood in the urine; no urine odor; no impotence; no fever/chills; no fatigue; no myalgia;cloudy urine;pain during urination Dayne Christensen NP [address] [place], [address], [place] - [facility] 09/25/2022 08:58:38
--- OUTSIDE RECORDS SUMMARY | 2024-05-31 19:08 | XMS_ITS | Clinical Summary ---
Author Organization [facility] Address [address] [place] [address] Care Team Providers Care Local Government Legislator Name Role Phone Gulshan Chanel García Primary Care Provider Allergies No known active allergies Medications gabapentin [...] extended release Take by mouth. 4 Active ihqbshd-MSDN-prd-v niyt-tnhn-cm 0.92-82-511-200 mg capsule 5 mg. 4 Active magnesium [...] by mouth 2 (two) times a day. 29241 mL 3 5 Active vitamin A 3,000 [...] Type Department Care Team Description 05/24/2024 Telephone [facility] Transplant [facility] [address] [place] [address] Angela Weaver, RN 05/18/2024 Orders Only [facility] [address] [place] [address] Angela Weaver, RN Encounter for pre-transplant evaluation for liver transplant (Primary Dx) 05/16/2024 Orders Only [facility] [address] [place] [address] Angela Weaver, RN Alcoholic cirrhosis of liver with ascites (CMS/HCC) (HCC) (Primary Dx) 05/16/2024 Telephone [facility] [address] [place] [address] 84967 [employer] Welding Equipment: Yunior Bravo MD 05/16/2024 Results Follow-Up [facility] [address] [place] [address] Angela Weaver, LUDY 05/16/2024 Telephone [facility] [address] [place] [address] 21773 Angela Weaver RN 05/15/2024 Results Follow-Up [facility] [address] [place] [address] 88941 Angela Weaver RN 05/11/2024 3:15 PM EST Office Visit [facility] [address] [place] [address] 48647 Kash Ramirez MD PhD Alcoholic cirrhosis of liver with ascites (CMS/HCC) (HCC) (Primary Dx); Portal hypertension (CMS/HCC) (HCC); Moderate protein-calorie malnutrition (HCC); Secondary esophageal varices without bleeding (HCC) 05/11/2024 2:30 PM EST Office Visit [facility] [address] [place] [address] [phone] Preeti Mcdaniel MD Co, Elizabeth Hartmann MD Special screening examination for infectious diseases (Primary Dx); Encounter for pre-transplant evaluation for liver transplant; Cytomegalovirus infection, unspecified cytomegaloviral infection type (HCC) 05/11/2024 1:45 PM EST Nutrition [facility] [address] [place] [address] 05/11/2024 1:00 PM EST Office Visit [facility] [address] [place] [address] 91828 Nathan Ortiz MD Encounter for pre-transplant evaluation for chronic liver disease (Primary Dx) 05/11/2024 12:15 PM EST Social Work [facility] [address] [place] [address] Radha Higginbotham ROOF SHINGLER 05/11/2024 11:45 AM EST Office Visit [facility] [address] [place] [address] Evelyn Barr RN Awaiting organ transplant (Primary Dx) 05/11/2024 10:28 AM EST - 05/11/2024 11:59 PM EST Hospital Encounter [facility] CT Scan [address] [place] [address] Yunior Pérez MD Discharge Disposition: Home or Self Care () 05/11/2024 8:35 AM EST - 05/11/2024 10:27 AM EST Hospital Encounter [facility] Building Cardiac Ultrasound [address] [place] [address] Yunior Pérez MD Discharge Disposition: Home or Self Care () 05/11/2024 Refill [facility] [address] [place] [address] 208[address] OlivierAlena vallejo Hepatic cirrhosis, unspecified hepatic cirrhosis type, unspecified whether ascites present (CMS/HCC) (HCC) (Primary Dx); Moderate protein-calorie malnutrition (HCC) 05/09/2024 Telephone [facility] [address] [place] [address] 26069 Angela Weaver, RN 05/08/2024 Telephone [facility] [address] [place] [address] 60745 Angela Weaver, RN 05/01/2024 Telephone [facility] [address] [place] [address] 18339 Angela Weaver, RN 04/18/2024 Orders Only [facility] [address] [place] [address] 41352 Angela Weaver, LUDY Encounter for pre-transplant evaluation for liver transplant (Primary Dx) 04/17/2024 1:00 PM EST Office Visit [facility] [address] [place] [address] Yunior Pérez MD Encounter for pre-transplant evaluation for liver transplant (Primary Dx) 04/17/2024 12:00 PM EST Evaluation [facility] [address] [place] [address] 47[address] Angela Weaver, LUDY Encounter for pre-transplant evaluation for liver transplant (Primary Dx) 04/17/2024 Orders Only [facility] Nuclear Medicine [address] [place] [address] 637[address] Nurys Rutherford MD 04/17/2024 Abstract [facility] [address] [place] [address] 9[address] Yunior Pérez MD 04/12/2024 Documentation [facility] [address] [place] [address] 12942 [place], Radha F., ROOF SHINGLER Transportation 04/11/2024 Orders Only [facility] [address] [place] [address] 21083 Angela Weaver, LUDY Encounter for pre-transplant evaluation for liver transplant (Primary Dx) 04/06/2024 Telephone [facility] [address] [place] [address] 16602 Angela Weaver, LUDY 04/05/2024 Telephone [facility] [address] [place] [address] 53896 [place] [employer], Radha F., ROOF SHINGLER vp digital marketing social media and crm 03/30/2024 Telephone [facility] [address] [place] [address] 84148 Radha Higginbotham [employer]OO[employer] Transportation 03/29/2024 Telephone [facility] [address] [place] [address] 60712 Angela Weaver RN 03/29/2024 Documentation [facility] [address] [place] [address] 533[address] Radha Higginbotham, ROOF SHINGLER Transportation 03/16/2024 Orders Only [facility] [address] [place] [address] 06364 Provider, MD Timothy 03/15/2024 Orders Only [facility] [address] [place] [address] 86483 Provider, MD Timothy from Last 3 Months [...] Info) Description 06/11/2024 10:30 AM EDT Follow-Up [facility] [address] [place] [address] Nathan Ortiz MD [address] [place] [address] 06/11/2024 11:00 AM EDT Clinical Support [facility] [address] [place] [address] Health Maintenance Due Date Last Done Comments [...] Screening Completed 05/11/2024 Procedures * Due to [place] state law, this organization might not be [...] Encounter for pre-transplant evaluation for liver transplant TQXYZ-5-CBADTLEHGAM (AAT) PHENOTYPE Routine 05/11/2024 8:02 AM EST [...] CYSTATIN C WITH GLOMERULAR FILTRATION RATE, ESTIMATED (EGFR)-[id number] Routine 05/11/2024 8:02 AM EST Encounter for [...] for pre-transplant evaluation for liver transplant PHOSPHATIDYLETHANOL-ARU [id number] Routine 05/11/2024 8:02 AM EST Encounter for [...] for liver transplant QUANTIFERON-TB GOLD PLUS, 1 [id number] Routine 05/11/2024 8:02 AM EST Encounter for pre-transplant evaluation for liver transplant RPR (DIAGNOSIS) W/REFLEX TO TITER & TPPA [id number] Routine 05/11/2024 8:02 AM EST Encounter for [...] for pre-transplant evaluation for liver transplant ZINC, PLASMA/SKWEX-[id number] Routine 05/11/2024 8:02 AM EST Encounter for pre-transplant evaluation for liver transplant PSA Routine 05/11/2024 8:02 AM EST Encounter for pre-transplant evaluation for liver transplant LIVER PRE EXTERNAL PANEL Routine 04/16/2024 from Last 3 Months Results * Due to [place] state law, this organization might not be [...] obtain the completed interpretation. ? Workstation ID: [id number] Up-to-date CT equipment and radiation dose reduction techniques were employed. CTDIvol: 3.0 - 14.6 mGy. DLP: 1699 mGy-cm. ??The following accession numbers are related to this dose report [id number]: [id number] Narrative 05/14/2024 7:59 PM EST EXAMINATION: CT [...] image 107 series 10. Resulting Agency Comment [id number] Procedure Note Christen Aviles MD - 05/14/2024 [...] 3. Cholelithiasis and choledocholithiasis. Punctate calculus seen ihfdu351 series 4 within the distal CBD. Can [...] possible to obtain thecompleted interpretation. Workstation ID: [id number] Up-to-date CT equipment and radiation dose reduction techniques wereemployed. CTDIvol: 3.0 - 14.6 mGy. DLP: 1699 mGy-cm. The followingaccession numbers are related to this dose report [id number]: [id number] Yunior Pérez MD IM CT PROCEDURES Final [...] obtain the completed interpretation. ? Workstation ID: [id number] Up-to-date CT equipment and radiation dose reduction techniques were employed. CTDIvol: 3.0 - 14.6 mGy. DLP: 1699 mGy-cm. ??The following accession numbers are related to this dose report [id number]: [id number] Narrative 05/17/2024 4:11 PM EST Indication: ??pre [...] vertebral disease. Bilateral gynecomastia. Resulting Agency Comment [id number] Procedure Note Sidney Delatorre MD PhD - [...] possible to obtain thecompleted interpretation. Workstation ID: [id number] Up-to-date CT equipment and radiation dose reduction techniques wereemployed. CTDIvol: 3.0 - 14.6 mGy. DLP: 1699 mGy-cm. The followingaccession numbers are related to this dose report [id number]: [id number] Yunior Pérez MD IM CT PROCEDURES Final [...] RIGHT ATRIAL PRESSURE [address] [facility] RV TISSUE DOPPLER S' 12.0 [...] Doppler. Myocardial deformation imaging was performed using [employer]. During the study the apical, parasternal, subcostal and suprasternal view was captured. Overall the study quality was adequate. Prior Study No prior study available for comparison. STRESS ECHO OVERALL FINDINGS Normal RV size and systolic function. No significant valvular disease identified. us Yunior Pérez MD CV ECHO PROCEDURES Final Result * Comprehensive Drug Panel, Urine (05/11/2024 8:11 AM EST) [facility] Comprehensive Drug Screen Urine DRUGS DETECTED 05/11/2024 2:55 PM EST [facility] Comment: NICOTINE GABAPENTIN COTININE CAFFEINE TRAMADOL AND METABOLITE Urine Voided urine specimen / Unknown Non-Blood Collection / Unknown 05/11/2024 8:11 AM EST 05/11/2024 8:16 AM EST [facility] - 05/11/2024 2:55 PM EST [facility] Received Date: us Yunior Pérez MD LAB URINE ORDERABLES Fin al Result [facility] [address] [facility] 3rd Floor, [place] [address], [place] [phone] [facility] [address] [facility] 3rd Floor, [place] [address], [place] [phone] * (ABNORMAL) Cystatin C with Glomerular Filtration [...] King ben Result - Final [facility]) [address] [place] [address], [place] * (ABNORMAL) SHELLY, Titer and Pattern (05/11/2024 8:02 AM EST) Pathologist [facility] SHELLY Titer 1 1:320(H) titer 05/16/2024 12:01 PM EST [facility] Comment: ?Reference Range ?<1:40 ?Negative ?1:40-1:80 ?Low Antibody Level ?>1:80 ?Elevated Antibody Level SHELLY Pattern 1 Nuclear, Homogeneo us(A) 05/16/2024 12:01 PM EST [facility] Comment: Homogeneous pattern is associated with systemic lupus erythematosus (SLE), drug-induced lupus and juvenile idiopathic arthritis. AC-1: Homogeneous International Consensus on SHELLY Patterns (https://doi.org/10.1515/ifva-1374-4373) SHELLY Titer 2 1:320(H) titer 05/16/2024 12:01 PM EST [facility] Comment: ?Reference Range ?<1:40 ?Negative ?1:40-1:80 ?Low Antibody Level ?>1:80 ?Elevated Antibody Level SHELLY Pattern 2 Nuclear, Speckled( A) 05/16/2024 12:01 PM EST [facility] Comment: Speckled pattern is associated with mixed connective tissue disease (MCTD), systemic lupus erythematosus (SLE), Sjogren's syndrome, dermatomyositis, and systemic sclerosis/polymyositis overlap. AC-2,4,5,29: Speckled International Consensus on SHELLY Patterns (https://doi.org/10.1515/nrdl-9367-6661) Blood Structure of peripheral vein / Unknown Venipuncture / Unknown 05/11/2024 8:02 AM EST 05/11/2024 8:15 AM EST Narrative [facility] - 05/16/2024 12:01 PM EST [facility] Received Date: Yunior Pérez MD LAB BLOOD ORDERABLES Fin al Result [facility] [address] [facility] 3rd Floor, [place] [address], [place] [phone] [facility] [address] [place] [address] Floor, [place] [address], * Phosphatidylethanol (PEth) (05/11/2024 8:02 AM EST) [...] (PLPEth) 32 ng/mL 05/12/2024 5:33 PM EST [facility] Comment:Reference ranges are not well established. EER Peth See Note 05/12/2024 5:33 PM EST [facility] Comment: Authorized individuals can access the [facility] Enhanced Report with an [facility] Connect account using the following link. Your local lab can assist you in obtaining the patient report if you don't have a Connect account. [email or web address] PEth Interpretation See Comment 04/22 5:33 PM EST [facility] Comment: Phosphatidylethanol (PEth) is a group [...] developed and its performance characteristics determined by [facility]. It has not been cleared or approved by the U.S. Food and Drug Administration. This test was performed in a CLIA-certified laboratory and is intended for clinical purposes. Performed By: [facility] [address] [place] [address] Aircraft Engine Assembler: Yusuf Lomas MD, PhD CLIA Number: [id number] Blood Structure of peripheral vein / Unknown Venipuncture / Unknown 05/11/2024 8:02 AM EST 05/11/2024 8:15 AM EST us Yunior Pérez MD LAB BLOOD ORDERABLES Fin al Result [facility] [address] [place] [address], * Gkqcd-7-Sgslzysurxp (AAT) Phenotype (05/11/2024 8:02 AM EST) Alpha 1 Antitrypsin Phenotype SEE NOTE 05/15/2024 1:10 PM EST [facility] Comment: THIS PATIENT'S TIMIP-2-AJIEHMCBRUL PHENOTYPE IS PI*MM. 90% of normal individuals have the MM phenotype, with normal quantitative AAT levels. Many phenotypic patterns have been described, including deficiency states with F, S, Z, or other alleles. As a general estimation, compared to M allele of 100% of normal P-4-Yveqekmckvb protein, the S allele produces approximately 60% and the Z allele 20%. For example, an MS phenotype would have about 80% of normal H-6-Ygmdrpdauai protein level, a 50% contribution from the M allele and 30% from the S allele. A ZZ phenotype would have about 20% of normal levels, a 10% contribution from each Z gene. The F allele has normal J-6-Bfndshudufq levels, but the kinetics of elastase inhibition [...] BLOOD ORDERABLES Fin al Result [facility] [address] [place] [address] 3rd Floor, [place] [address], Agent Panda/[facility] [id number] [place] [address], * (ABNORMAL) MMR Panel, IgG (05/11/2024 8:02 AM EST) Measles Antibody (IgG), Immune Status <13.50(L) AU/mL 05/11/2024 5:16 PM EST [facility] Comment: AU/mL ?Interpretation ----- ? <13.50 ? Not consistent with immunity 13.50-16.49 ?Equivocal >16.49 ? Consistent with immunity The presence of measles IgG suggests immunization or past or current infection with measles virus. For additional information, please refer to http://SpringCM.Comr.se/faq/GJZ680 (This link is being provided for informational/ educational purposes only.) Mumps Antibody (IgG), Immune Status <9.00(L) AU/mL 05/11/2024 5:16 PM EST [facility] Comment: AU/mL ? Interpretation ------- ? <9.00 ? Not consistent with immunity 9.00-10.99 ?Equivocal >10.99 ?Consistent with immunity The presence of mumps IgG antibody suggests immunization or past or current infection with mumps virus. Rubella Antibody (IgG), Immune Status <0.90(L) Index 05/11/2024 5:16 PM EST [facility] Comment: ?Index ?Interpretation ?----- ?<0.90 ?Not consistent with immunity ?0.90-0.99 ?Equivocal ?> or = 1.00 ?Consistent with immunity The presence of rubella IgG antibody suggests immunization or past or current infection with rubella virus. Blood Structure of peripheral vein / Unknown Venipuncture / Unknown 05/11/2024 8:02 AM EST 05/11/2024 8:15 AM EST Narrative [facility] - 05/11/2024 5:16 PM EST [facility] Received Date: Yunior Pérez MD LAB BLOOD ORDERABLES Fin al Result [facility] [address] [facility] 3rd Floor, [place] [address], [place] [phone] [facility] [address] [facility] 3rd Floor, [place] [address], [place] [phone] * (ABNORMAL) Herpes Simplex Virus 1&2, IgG (05/11/2024 8:02 AM EST) Pathologist [facility] HSV 1 IgG Type Specific Ab <0.90 index 05/11/2024 9:20 PM EST [facility] HSV 2 IgG Type Specific Ab 1.66(H) index 05/11/2024 9:20 PM EST [facility] Comment: ?Index ?Interpretation ?----- ?<0.90 ?Negative ?0.90-1.09 ?Equivocal ?>1.09 ?Positive Low HSV-2 IgG positive results (index values between 1.10-3.00) may represent false positive results. CDC 2020 guidelines recommend confirmatory testing of samples with low-positive HSV-2 IgG results. If clinically indicated, consider adding on HSV-2 IgG Inhibition, by contacting [facility]. For additional information, please refer to: https://www.[employer].AFINOS/healthcare- professionals/tcwhxdfj-yczpncywu-rimjxu/faq/faq73 (This link is being provided for informational/ [...] screening. For additional information, please refer to http://education.Comr.se/faq/UUE617 (This link is being provided for informational/ educational purposes only.) ?? Blood Structure of peripheral vein / Unknown Venipuncture / Unknown 05/11/2024 8:02 AM EST 05/11/2024 8:13 AM EST Narrative [facility] 05/11/2024 9:20 PM EST [facility] Received Date: Yunior Pérez MD LAB BLOOD ORDERABLES Fin al Result [facility] [address] [facility] [address]rd Floor, [place] [address], Agent Panda [facility] [address] [facility] 3rd Floor, [place] [address], * Protein Electrophoresis w/Reflex to Immunofixation, Serum (05/11/2024 8:02 AM EST) Protein, Total 6.9 6.1 - 8.1 g/dL 05/11/2024 10:39 PM EST Agent Panda [facility] Albumin 3.8 3.8 - 4.8 g/dL 05/11/2024 10:39 PM EST Agent Panda [facility] Alpha 1 Globulin 0.3 0.2 - 0.3 g/dL 05/11/2024 10:39 PM EST Agent Panda [facility] Alpha 2 Globulin 0.6 0.5 - 0.9 g/dL 05/11/2024 10:39 PM EST Agent Panda [facility] Beta 1 Globulin 0.5 0.4 - 0.6 g/dL 05/11/2024 10:39 PM EST Agent Panda [facility] Beta 2 Globulin 0.3 0.2 - 0.5 g/dL 05/11/2024 10:39 PM EST Agent Panda [facility] Gamma Globulin 1.4 0.8 - 1.7 g/dL 05/11/2024 10:39 PM EST Agent Panda [facility] Interpretation See Comments 05/11/2024 10:39 PM [facility] Comment: Normal Serum Protein Electrophoresis Pattern. No abnormal protein bands (M-protein) detected. Blood Structure of peripheral vein / Unknown Venipuncture / Unknown 05/11/2024 8:02 AM EST 05/11/2024 8:14 AM EST Narrative [facility] - 05/11/2024 10:39 PM EST [facility] Received Date:[id number] us Yunior Pérez MD LAB BLOOD ORDERABLES Fin al Result Performing Organization Address [facility]/ZIP Co de Phone Number [facility] [address], [place] [address], [place] [phone] Agent Panda [facility] [address], [place] [address], [place] [phone] * RPR (Diagnosis) w/Reflex to Titer & TPPA Confirm (05/11/2024 8:02 AM EST) RPR W/Refl Titer NON-REACT COLLINS NON-REACT COLLINS 05/11/2024 1:09 PM EST Agent Panda [facility] Blood Structure of peripheral vein / Unknown Venipuncture / Unknown 05/11/2024 8:02 AM EST 05/11/2024 8:15 AM EST Narrative [facility] - 05/11/2024 1:09 PM EST [facility] Received Date:[id number] us Yunior Pérez MD LAB BLOOD ORDERABLES Fin al Result Performing Organization Address City/[facility]/ZIP Co de Phone Number [facility] [address], [place] [address], [place] [phone] Agent Panda [facility] [address], [place] [address], [place] [phone] * (ABNORMAL) Iron Saturation (05/11/2024 8:02 AM EST) Iron Saturation 6(L) 20 - 50 % 8:57 AM EST [facility] Iron 25(L) 45 - 160 ug/dL 05/11/2024 8:57 AM EST [facility] Transferrin 316 200 - 360 mg/dL 05/11/2024 8:57 AM EST [facility] [facility] [facility] Total Iron Binding Capacity 395 255 - 450 ug/dL 05/11/2024 8:57 AM EST [facility] Blood Structure of peripheral vein / Unknown Venipuncture / Unknown 05/11/2024 8:02 AM EST 05/11/2024 8:15 AM EST Yunior Pérez MD LAB BLOOD ORDERABLES Fin al Result [facility] [address] [place] [address], * TSH Reflex Free T4 (05/11/2024 8:02 AM EST) Pathologist [facility] TSH 2.130 0.280 - 3.890 uIU/mL 05/11/2024 8:57 AM EST [facility] Blood Structure of peripheral vein / Unknown Venipuncture / Unknown 05/11/2024 8:02 AM EST 05/11/2024 8:15 AM EST Yunior Pérez MD LAB BLOOD ORDERABLES Fin al Result Performing Organization Address City/[facility]/ZIP Co de Phone Number [facility] [address] [place] [address], * QuantiFERON-TB Gold Plus, 1 Tube (05/11/2024 8:02 AM EST) Pathologist [facility] QuantiFERON-TB Gold Plus NEGATIVE NEGATIVE 05/14/2024 2:04 PM EST Agent Panda [facility] Comment: Negative test result. M. tuberculosis complex infection unlikely. NIL 0.01 IU/mL 05/14/2024 2:04 PM EST [facility] Mitogen-NIL 9.32 IU/mL 05/14/2024 2:04 PM EST [facility] TB1-NIL 0.00 IU/mL 05/14/2024 2:04 PM EST [facility] TB2-NIL 0.01 IU/mL 05/14/2024 2:04 PM EST Agent Panda [facility] Comment: The Nil tube value reflects [...] T-lymphocytes. For additional information, please refer to https://education.[employer]/faq/OHA323 (This link is being provided for informational/ educational purposes only.) Blood Structure of peripheral vein / Unknown Venipuncture / Unknown 05/11/2024 8:02 AM EST 05/11/2024 8:10 AM EST Narrative [facility] - 05/14/2024 2:04 PM EST [facility] Received Date: Yunior Pérez MD LAB BLOOD ORDERABLES Fin al Result [facility] [address] [facility] [address] [facility], [place] [address], [place] [phone] Agent Panda [facility] [address], [place] [address], * (ABNORMAL) CBC Auto Differential (05/11/2024 8:02 AM EST) WBC 8.6 3.8 - 10.8 10*3/uL 05/11/2024 8:22 AM EST [facility] RBC 3.56(L) 4.20 - 5.80 10*6/uL 05/11/2024 8:22 AM EST [facility] Hemoglobin 11.1(L) 13.2 - [...] 0.03 <=0.03 10*3/uL 05/11/2024 8:22 AM EST [facility] Lymphocyte # 1.60 0.85 - 3.90 10*3/uL 05/11/2024 8:22 AM EST [facility] Monocyte # 1.10(H) 0.20 - 0.95 10*3/uL 05/11/2024 8:22 AM EST [facility] Eosinophil # 0.20 0.02 - 0.50 10*3/uL 05/11/2024 8:22 AM EST [facility] Basophil # 0.10 0.00 - 0.20 10*3/uL 05/11/2024 8:22 AM EST [facility] nRBC % 0.0 /100 WBCs 05/11/2024 8:22 AM EST [facility] nRBC # <0.01 <0.01 10*3/uL 05/11/2024 8:22 AM EST [facility] Blood Structure of peripheral vein / Unknown Venipuncture / Unknown 05/11/2024 8:02 AM EST 05/11/2024 8:15 AM EST Yunior Pérez MD LAB BLOOD ORDERABLES Fin al Result [facility] 365 [place] [address], * Smooth Muscle Antibody Screen w/Reflex to Titer (05/11/2024 8:02 AM EST) Smooth Muscle AB Screen NEGATIVE NEGATIVE 05/14/2024 3:03 PM EST [facility] Comment: The specimen was negative for cytoplasmic antibodies, however additional staining was observed suggesting the presence of Antinuclear Antibodies. Consider requesting order code 249, SHELLY Screen, IFA with Reflex to Titer and Pattern, or order code [id number], SHELLY Screen, IFA w/reflex Titer/Pattern, and Reflex to Multiplex 11 Ab King[place]isher, if clinically indicated. Blood Structure of peripheral vein / Unknown Venipuncture / Unknown 05/11/2024 8:02 AM EST 05/11/2024 8:15 AM EST [facility]ative [facility] - 05/14/2024 3:03 PM EST [facility] Received Date:[id number] us Yunior Pérez MD LAB BLOOD ORDERABLES Fin al Result [facility] [address], [place] [address], [place] [phone] Agent Panda [facility] [address], [place] [address], [place] [phone] * Hepatitis C Antibody w/Reflex to PCR (05/11/2024 8:02 AM EST) Hepatitis C Antibody NON-REACT COLLINS NON-REACT COLLINS 05/11/2024 11:44 AM EST Agent Panda [facility] Comment: HCV antibody was non-reactive. There is no laboratory evidence of HCV infection. In most cases, no further action is required. However, if recent HCV exposure is suspected, a test for HCV RNA (test code 68635) is suggested. For additional information please refer to http://education.[employer]/faq/WNA70r5 (This link is being provided for informational/ educational purposes only.) Blood Structure of peripheral vein / Unknown Venipuncture / Unknown 05/11/2024 8:02 AM EST 05/11/2024 8:15 AM EST Narrative [facility] IZQUIER[facility] - 05/11/2024 11:44 AM EST [facility] Received Date:[id number] us Yunior Pérez MD LAB BLOOD ORDERABLES Fin al Result [facility] 200 [facility] [address] [facility], [place] [address], [place] [phone] Agent Panda [facility] [address], [place] [address], * Hepatitis A Antibody, Total (05/11/2024 8:02 AM EST) Hepatitis A Ab, Total NON-REACT COLLINS NON-REACT COLLINS 05/11/2024 11:44 AM EST [facility] Comment: For additional information, please refer to http://education.[employer]/faq/AET045 (This link is being provided for informational/ educational purposes only.) Blood Structure of peripheral vein / Unknown Venipuncture / Unknown 05/11/2024 8:02 AM EST 05/11/2024 8:15 AM EST Narrative [facility] - 05/11/2024 11:44 AM EST [facility] Received Date: Yunior Pérez MD LAB BLOOD ORDERABLES Fin al Result [facility] 200 [facility] 3rd Floor, [place] [address], [facility] 200 [facility] 3rd Floor, [place] [address], * Histoplasma Antibody Panel, CF & ID (05/11/2024 8:02 AM EST) Pathologist [facility] Histoplasma capsulatum yeast phase Ab <1:8 <1:8 NA 05/17/2024 12:21 PM EST [facility] (LAURA) Histoplasma capsulatum mycelial phase Ab <1:8 <1:8 NA 05/17/2024 12:21 PM EST [facility] (LAURA) Comment: Interpretive Criteria: ?<1:8 - Antibody [...] analytical performance characteristics have been determined by [facility] [employer] [place], [place]. It has not been cleared or [...] BLOOD ORDERABLES Final Res ult KIMBERLY POND) [address] [place] [address], [place] * (ABNORMAL) SHELLY Screen, Reflex to Titer, IFA (05/11/2024 8:02 AM EST) Pathologist [facility] SHELLY Screen, IFA POSITIVE (A) NEGATIVE 05/16/2024 12:00 PM EST Agent Panda [facility] Comment: SHELLY IFA is a first line screen for detecting the presence of up to approximately 150 autoantibodies in various autoimmune diseases. A positive SHELLY IFA result is suggestive of autoimmune disease and reflexes to titer and pattern. Further laboratory testing may be considered if clinically indicated. For additional information, please refer to http://education.Fablic.AFINOS/faq/FAF121 (This link is being provided for informational/ educational purposes only.) ?? Blood Structure of peripheral vein / Unknown Venipuncture / Unknown 05/11/2024 8:02 AM EST 05/11/2024 8:15 AM EST Eriberto IZQUIERDO - 05/16/2024 12:00 PM EST [facility] Received Date:[id number] us Yunior Pérez MD LAB BLOOD ORDERABLES Fin al Result Performing Organization Address City/[facility]/ZIP Co de Phone Number [facility] 200 [facility] [address] [facility], [place] [address], [place] [phone] Agent Panda [facility] [address], [place] [address], * Ceruloplasmin (05/11/2024 8:02 AM EST) Ceruloplasmin 19 14 - 30 mg/dL 05/13/2024 1:07 AM EST [facility] Blood Structure of peripheral vein / Unknown Venipuncture / Unknown 05/11/2024 8:02 AM EST 05/11/2024 8:15 AM EST Narrative [facility] - 05/13/2024 1:07 AM EST [facility] Received Date:[id number] us Yunior Pérez MD LAB BLOOD ORDERABLES Fin al Result Performing Organization Address City/[facility]/ZIP Co de Phone Number [facility] [address], [place] [address], [place] [phone] Agent Panda [facility] [address], [place] [address], * (ABNORMAL) Zinc (05/11/2024 8:02 AM EST) Zinc 45(L) 60 - 130 mcg/dL 05/15/2024 11:53 AM EST [facility] P[facility]) Comment: This test was developed and its analytical performance characteristics have been determined by [facility] [place], [place]. It has not been cleared or [...] ORDERABLES Fin al Result Performing Organization Address [facility] Co de Phone Number KIMBERLY POND) [address] [place], [place] , [place] * (ABNORMAL) Vitamin A (Retinol) (05/11/2024 8:02 AM EST) Pathologist [facility] Vitamin A (Retinol) 15(L) 38 - 98 mcg/dL 05/14/2024 11:11 PM EST [facility] POND) Comment: Vitamin supplementation within 24 hours prior to blood draw may affect the accuracy of the results. This test was developed and its analytical performance characteristics have been determined by [facility] [employer] [facility] [place], [place]. It has not been cleared or approved by the U.S. Food and Drug Administration. This assay has been validated pursuant to the CLIA regulations and is used for clinical purposes. Blood Structure of peripheral vein / Unknown Venipuncture / Unknown 05/11/2024 8:02 AM EST 05/11/2024 8:10 AM EST Eriberto LITTLEJOHN (LAURA) - 05/14/2024 11:11 PM EST [facility] Received Date:[id number] Yunior Pérez MD LAB BLOOD ORDERABLES Fin al Result Performing Organization Address City/[facility]/ZIP Co de Phone Number [facility] POND) [address] [place], [place] , * (ABNORMAL) AFP Tumor Marker (05/11/2024 8:02 AM EST) [facility] Alpha Fetoprotein, Tumor Marker 7.4(H) <6.1 ng/mL 05/14/2024 1:16 PM EST [facility] Comment: This test was performed using the Bakari Chatsworth chemiluminescent method. Values obtained from different assay methods cannot be used interchangeably. AFP levels, regardless of value, should not be interpreted as absolute evidence of the presence or absence of disease. Blood Structure of peripheral vein / Unknown Venipuncture / Unknown 05/11/2024 8:02 AM EST 05/11/2024 8:15 AM EST Narrative [facility] - 05/14/2024 1:16 PM EST [facility] Received Date:[id number] Yunior Pérez MD LAB BLOOD ORDERABLES Fin al Result [facility] 200 [facility] [address] [facility], [place] [address], [facility] [address], [place] [address], * (ABNORMAL) Nikhil-Richardson Virus VCA, IgG (05/11/2024 8:02 AM EST) [facility] EBV Viral Capsid Ag Ab (IGG) >750.00(H ) U/mL 05/11/2024 5:16 PM EST [facility] Comment: ? U/mL ? Interpretation ? ---- ? <18.00 ? Negative ? 18.00-21.99 ?Equivocal ? >21.99 ? Positive Blood Structure of peripheral vein / Unknown Venipuncture / Unknown 05/11/2024 8:02 AM EST 05/11/2024 8:15 AM EST Eriberto IZQUIERDO - 05/11/2024 5:16 PM EST [facility] Received Date:[id number] us Yunior Pérez MD LAB BLOOD ORDERABLES Fin al Result [facility] 200 [facility] [address] [facility], [place] [address], [place] [phone] Agent Panda [facility] [address], [address] [facility] [place] [address], [place] [phone] * Hepatitis B Core Antibody, Total (05/11/2024 8:02 AM EST) Hepatitis B Core Ab Total NON-REACT COLLINS NON-REACT COLLINS 05/11/2024 11:44 AM EST [facility] Comment: For additional information, please refer to http://SpringCM.BMRW [employer] Associates/faq/FSN717 (This link is being provided for informational/ educational purposes only.) Blood Structure of peripheral vein / Unknown Venipuncture / Unknown 05/11/2024 8:02 AM EST 05/11/2024 8:15 AM EST [facility] [place] - 05/11/2024 11:44 AM EST [facility] Received Date:[id number] us Yunior Pérez MD LAB BLOOD ORDERABLES Fin al Result [facility] [address], [place] [address], [place] [phone] Agent Panda [facility] [address], [place] [address], * (ABNORMAL) Vitamin D, 25-Hydroxy, Total, Immunoassay (05/11/2024 8:02 AM EST) Calcidiol+ercalc idiol 13(L) 30 - 100 ng/mL 05/11/2024 11:52 AM EST [facility] Comment: Vitamin D Status ? 25-OH Vitamin D: Deficiency: ?<20 ng/mL Insufficiency: ? 20 - 29 ng/mL Optimal: ? > or = 30 ng/mL For 25-OH Vitamin D testing on patients on D2-supplementation and patients for whom quantitation of D2 and D3 fractions is required, the QuestAssureD(TM) 25-OH VIT D, (D2,D3), LC/MS/MS is recommended: order code [id number] (patients >2yrs). See Note 1 Note 1 For additional information, please refer to http://education.Comr.se/faq/JRE264 (This link is being provided for informational/ educational purposes only.) Blood Structure of peripheral vein / Unknown Venipuncture / Unknown 05/11/2024 8:02 AM EST 05/11/2024 8:15 AM EST Narrative [facility] - 05/11/2024 11:52 AM EST [facility] Received Date: Yunior Pérez MD LAB BLOOD ORDERABLES Fin al Result [facility] 200 [facility] 3rd Floor, [place] [address], [facility] 200 [facility] 3rd Floor, [place] [address], * Mitochondrial Antibody w/Reflex (05/11/2024 8:02 AM EST) Mitochondrial Ab Screen NEGATIVE NEGATIVE 05/14/2024 3:03 PM EST [facility] Comment: The specimen was negative for cytoplasmic antibodies, however additional staining was observed suggesting the presence of Antinuclear Antibodies. Consider requesting order code 249, SHELLY Screen, IFA with Reflex to Titer and Pattern, or order code [id number], SHELLY Screen, IFA w/reflex Titer/Pattern, and Reflex to Multiplex 11 Ab King[place]isher, if clinically indicated. Blood Structure of peripheral vein / Unknown Venipuncture / Unknown 05/11/2024 8:02 AM EST 05/11/2024 8:13 AM EST Narrative [facility] [place] - 05/14/2024 3:03 PM EST [facility] Received Date: us Yunior Pérez MD LAB BLOOD ORDERABLES Fin al Result Performing Organization Address City/[facility]/ZIP Co de Phone Number [facility] [place] [address], [place] [address], Agent Panda [facility] [address], [place] [address], * Toxoplasma gondii Antibody, IgG (05/11/2024 8:02 AM EST) [facility] Toxoplasma Ab IgG <7.20 IU/mL 05/11/2024 9:20 PM EST [facility] Comment: ? IU/mL ?Interpretation ? ------ ? <7.20 ?Negative ? 7.20-8.79 ?Equivocal ? >8.79 ?Positive Blood Structure of peripheral vein / Unknown Venipuncture / Unknown 05/11/2024 8:02 AM EST 05/11/2024 8:13 AM EST Narrative [facility] - 05/11/2024 9:20 PM EST [facility] Received Date: us Yunior Pérez MD LAB BLOOD ORDERABLES Fin al Result [facility] [address], [place] [address], [facility] [address], [place] [address], * (ABNORMAL) Hepatitis B Surface Antibody (05/11/2024 8:02 AM EST) Pathologist [facility] Hepatitis B Surface Ab Immunity, Qn <5(L) > OR = 10 mIU/mL 05/11/2024 11:44 AM EST Agent Panda [facility] Comment: PATIENT DOES NOT HAVE IMMUNITY TO HEPATITIS B VIRUS. For additional information, please refer to http://SpringCM.[employer]W [employer]/faq/FYN079 (This link is being provided for informational/ educational purposes only). Blood Structure of peripheral vein / Unknown Venipuncture / Unknown 05/11/2024 8:02 AM EST 05/11/2024 8:15 AM EST Narrative [facility] [place] - 05/11/2024 11:44 AM EST [facility] Received Date: Yunior Pérez MD LAB BLOOD ORDERABLES Fin al Result [facility] 200 [facility] [address] [facility], [place] [address], Agent Panda [facility] [address], [place] [address], * Hepatitis B Surface Antigen w/Confirmation (05/11/2024 8:02 AM EST) Pathologist [facility] Hepatitis B Surface Antigen NON-REACT COLLINS NON-REACT COLLINS 05/11/2024 11:44 AM EST Agent Panda [facility] Comment: For additional information, please refer to http://SpringCM.[employer]W [employer]/faq/VQL413 (This link is being provided for informational/ educational purposes only.) Blood Structure of peripheral vein / Unknown Venipuncture / Unknown 05/11/2024 8:02 AM EST 05/11/2024 8:15 AM EST Narrative [facility] [place] - 05/11/2024 11:44 AM EST [facility] Received Date:[id number] Yunior Pérez MD LAB BLOOD ORDERABLES Fin al Result Performing Organization Address City/[facility] Co de Phone Number KIMBERLY IZQUIERDO 200 [facility] [address] Floor, [place] [address], [place] [phone] [facility] 200 [facility] [address]rd Floor, [place] [address], * (ABNORMAL) Cytomegalovirus Antibody, IgG (05/11/2024 8:02 AM EST) Pathologist [facility] Cytomegalovirus Antibody (IgG) 6.00(H) U/mL 05/12/2024 4:15 AM EST [facility] Comment: ? U/mL ? Interpretation ? ----- [...] - 05/12/2024 4:15 AM EST [facility] Received Date:[id number] us Yunior Pérez MD LAB BLOOD ORDERABLES Fin al Result [facility] [place] 200 [facility] [address]rd Floor, [place] [address], [place] [phone] Agent Panda [facility] 200 [facility] [address]rd Floor, [place] [address], [place] [phone] * (ABNORMAL) PTT (05/11/2024 8:02 AM EST) aPTT 33.2(H) 23.0 - 32.0 Seconds 05/11/2024 9:04 AM EST [facility] Comment: Current PTT reagent is not sensitive to detect all Lupus Anticoagulant (LA) Inhibitor Cases. ?? If a LA is suspected, please order a Lupus Anticoagulation w/ Reflex Test which is performed at [facility] in [place], [place]. Blood Structure of peripheral vein / Unknown Venipuncture / Unknown 05/11/2024 8:02 AM EST 05/11/2024 8:13 AM EST Yunior Pérez MD LAB BLOOD ORDERABLES Fin al Result [facility] [address] [place] [address], * Protime-INR (05/11/2024 8:02 AM EST) PT 11.9 9.6 - 12.4 Seconds 05/11/2024 9:04 AM EST [facility] INR 1.1 0.9 - 1.1 05/11/2024 9:04 AM EST [facility] Comment:The optimal therapeu tic INR range for patients treated with Vitamin K antagonists (VKAS, e.g., Warfarin) is 2.0 to 3.5. Discuss the desired range with your doctor/care team. Blood Structure of peripheral vein / Unknown Venipuncture / Unknown 05/11/2024 8:02 AM EST 05/11/2024 8:13 AM EST Yunior Pérez MD LAB BLOOD ORDERABLES Fin al Result Performing Organization Address [facility] Co de Phone Number [facility] [address] [place] [address], * Type and Screen (05/11/2024 8:02 AM EST) Pathologist [facility] ABO Blood Type B 05/11/2024 9:09 AM [...] Edited Result - Final Performing Organization Address [facility] de Phone Number [facility] [address] [place] [address], * Varicella Zoster Antibody, IgG (05/11/2024 8:02 AM EST) Pathologist [facility] Varicella Zoster Virus Antibody 2.40 S/CO 05/11/2024 5:07 PM EST [facility] Comment: ?Signal to Cut-off ? S/CO ?Interpretation [...] EST 05/11/2024 8:13 AM EST Narrative [facility] [place] - 05/11/2024 5:07 PM EST [facility] Received Date: Yunior Pérez MD LAB BLOOD ORDERABLES Fin al Result [facility] 200 [facility] [address]rd Floor, [place] [address], Agent Panda [facility] 200 [facility] [address] Floor, [place] [address], * PSA (05/11/2024 8:02 AM EST) PSA 0.04 <=4.00 ng/mL 05/11/2024 8:53 AM EST [facility] Comment: The total PSA value from this assay system is standardized against the WHO standard. ??The test result will be slightly lower (< 3 %) when compared to the equimolar-standardized total PSA(Bakari Chatsworth). ??Comparison of Serial PSA results should be [...] MD LAB BLOOD ORDERABLES Fin al Result [facility] [address] [place] [address], [place] * Phosphorus (05/11/2024 8:02 AM EST) Phosphorus 3.2 2.5 - 4.5 mg/dL 05/11/2024 8:57 AM EST [facility] Blood Structure of peripheral vein / Unknown Venipuncture / Unknown 05/11/2024 8:02 AM EST 05/11/2024 8:15 AM EST us Yunior Pérez MD LAB BLOOD ORDERABLES Fin al Result Performing Organization Address [facility] Co de Phone Number [facility] [address] [place] [address], [place] * Magnesium (05/11/2024 8:02 AM EST) MG 1.9 1.6 - 2.4 mg/dL 05/11/2024 8:57 AM EST [facility] Blood Structure of peripheral vein / Unknown Venipuncture / Unknown 05/11/2024 8:02 AM EST 05/11/2024 8:15 AM EST Yunior Pérez MD LAB BLOOD ORDERABLES Fin al Result Performing Organization Address City/[facility]/ZIP Co de Phone Number [facility] [address] [place] [address], [place] * Hemoglobin A1c (05/11/2024 8:02 AM EST) Hemoglobin A1C 4.7 <5.7 % of total Hgb 05/12/2024 10:03 AM [facility] Comment: For the purpose of screening for the presence of diabetes: <5.7% ? Consistent with the absence of diabetes 5.7-6.4% ?Consistent with increased risk for diabetes ?(prediabetes) > or =6.5% ??Consistent with diabetes This assay result is consistent with a decreased risk of diabetes. Currently, no consensus exists regarding use of hemoglobin A1c for diagnosis of diabetes in children. According to [place] Diabetes Association (ADA) guidelines, hemoglobin A1c <7.0% represents optimal control in non- diabetic patients. Different metrics may apply to specific patient populations. Standards of Medical Care in Diabetes(ADA). ?? eAG (MG/DL) 88 mg/dL 05/12/2024 10:03 AM [facility] eAG (MMOL/L) 4.9 mmol/L 05/12/2024 10:03 AM [facility] Blood Structure of peripheral vein / Unknown Venipuncture / Unknown 05/11/2024 8:02 AM EST 05/11/2024 8:15 AM EST Narrative [facility] [place] - 05/12/2024 10:03 AM EST [facility] Received Date: Yunior Pérez MD LAB BLOOD ORDERABLES Fin al Result [facility] 200 [facility] [address] [facility], [place] [address], [facility] 200 [facility] [address] Floor, [place] [address], * Ferritin (05/11/2024 8:02 AM EST) Ferritin 44.9 23.0 - 336.0 ng/mL 05/11/2024 8:57 AM EST [facility] Blood Structure of peripheral vein / Unknown Venipuncture / Unknown 05/11/2024 8:02 AM EST 05/11/2024 8:15 AM EST Yunior Pérez MD LAB BLOOD ORDERABLES Fin al Result Performing Organization Address City/[facility]/ZIP Co de Phone Number [facility] [address] [place] [address], * (ABNORMAL) Bilirubin, Direct (05/11/2024 8:02 AM EST) Bilirubin, Direct 0.8(H) <=0.4 mg/dL 05/11/2024 8:57 AM EST [facility] Blood Structure of peripheral vein / Unknown Venipuncture / Unknown 05/11/2024 8:02 AM EST 05/11/2024 8:15 AM EST Yunior Pérez MD LAB BLOOD ORDERABLES Fin al Result Performing Organization Address [facility]/ZIP Co de Phone Number [employer] [facility] [address] [place] [address], [place] * Ethanol (05/11/2024 8:02 AM EST) Ethanol <10 <10 mg/dL 05/11/2024 8:53 AM EST [facility] Blood Structure of peripheral vein / Unknown Venipuncture / Unknown 05/11/2024 8:02 AM EST 05/11/2024 8:11 AM EST Yunior Pérez MD LAB BLOOD ORDERABLES Fin al Result [facility] [address] [place] [address], * (ABNORMAL) Lipid panel (05/11/2024 8:02 AM EST) Cholesterol 142 <=199 mg/dL 05/11/2024 8:57 AM EST [facility] Triglycerides 82 <=149 mg/dL 05/11/2024 8:57 AM EST [facility] Cholesterol, HDL 71(H) 40 - 59 mg/dL 05/11/2024 8:57 AM EST [facility] Cholesterol, Non-HDL 71 mg/dL 05/11/2024 8:57 AM EST [facility] LDL Cholesterol 55 <100 mg/dL 05/11/2024 8:57 AM EST [facility] VLDL 16.4 mg/dL 05/11/2024 8:57 AM EST [facility] Cholesterol/HDL Ratio 2.0 <5.0 05/11/2024 8:57 AM EST [facility] Blood Structure of peripheral vein / Unknown Venipuncture / Unknown 05/11/2024 8:02 AM EST 05/11/2024 8:15 AM EST [facility] - 05/11/2024 8:57 AM [...] MD LAB BLOOD ORDERABLES Fin al Result [facility] [address] [place] [address], * (ABNORMAL) Comprehensive Metabolic Panel (05/11/2024 8:02 AM EST) NA 127(L) 135 - 145 mmol/L 05/11/2024 8:57 AM EST [facility] K 4.5 3.5 - 5.3 mmol/L 05/11/2024 8:57 AM EST [facility] Cl 94(L) 98 - 107 mmol/L 05/11/2024 8:57 AM EST [facility] [facility] CO2 21(L) 22 - 32 mmol/L 05/11/2024 8:57 AM EST [facility] Anion Gap 12 5 - 15 05/11/2024 8:57 AM EST [facility] Glucose 105(H) 65 - 99 mg/dL 05/11/2024 8:57 AM EST [facility] Creatinine 1.16 0.60 - 1.30 mg/dL 05/11/2024 8:57 AM EST [facility] Calcium 9.1 8.6 - 10.5 mg/dL 05/11/2024 8:57 AM EST [facility] Total Protein 7.1 6.0 - 8.0 g/dL 05/11/2024 8:57 AM EST [facility] Albumin 3.8 3.5 - 5.2 g/dL 05/11/2024 8:57 AM EST [facility] Bilirubin, Total 1.5(H) 0.2 - 1.2 mg/dL 05/11/2024 8:57 AM EST [facility] Alkaline Phosphatase 165(H) 35 - 129 U/L 05/11/2024 8:57 AM EST [facility] AST 23 10 - 40 U/L 05/11/2024 8:57 AM EST [facility] ALT 11 10 - 40 U/L 05/11/2024 8:57 AM EST [facility] BUN 16 7 - 23 mg/dL 05/11/2024 8:57 AM EST [employer] [facility] eGFR 74 >=60 mL/min/1. 73m2 05/11/2024 8:57 AM EST [facility] Comment:The estimated glomer ular [...] - 4.2 g/dL 05/11/2024 8:57 AM EST [facility] A/G Ratio 1.2(L) 1.5 - 3.0 05/11/2024 8:57 AM EST [facility] CLINICAL PATHOLOGY LABORATORY Blood Structure of peripheral vein / Unknown Venipuncture / Unknown 05/11/2024 8:02 AM EST 05/11/2024 8:15 AM EST Yunior Pérez MD LAB BLOOD ORDERABLES Fin al [facility] [address] [place] [address], * LIVER PRE EXTERNAL PANEL (04/16/2024) Sodium [...] [facility] from Last 3 Months Insurance MEDICARE [facility] MEDICARE [facility] Advance Directives Documents on File Type Date Recorded Patient Liquid Sugar Melter Expl [facility] Health Care Proxy 05/15/2024 3:29 PM 05-11 Care Teams Local Government Legislator Relationship Specialty Start Date End Date Gulshan Chanel [address] [place] [address] PCP - General 04/17/24
--- OUTSIDE RECORDS SUMMARY | 2024-05-31 19:08 | XMS_ITS | Encounter Summary ---
Author Organization [facility] Address [address] [place] [address] Care Team Providers Care Continuity Writer Name Role Phone Gulshan Chanel Primary Care Provider [phone] Encounter Details Date Type Department Care Team (Late st Contact Info) Description 05/09/2024 Telephone [facility] Transplant Department [address] [place] [address] Angela Weaver RN Social History Tobacco Use [...] Info) Description 06/11/2024 10:30 AM EDT Follow-Up [facility] [address] [place] [address] Nathan Ortiz MD [address] [place] [address] 06/11/2024 11:00 AM EDT Clinical Support [facility] [address] [place] [address] documented as of this encounter Results * Due to [place] state law, this organization might not be sharing negative HIV tests. * Comprehensive Drug Panel, Urine (05/11/2024 8:11 AM EST) Pathologist [facility] [place] Comprehensive Drug Screen Urine DRUGS DETECTED 05/11/2024 2:55 PM EST [facility] Comment: NICOTINE GABAPENTIN COTININE CAFFEINE TRAMADOL AND METABOLITE Urine Voided urine specimen / Unknown Non-Blood Collection / Unknown 05/11/2024 8:11 AM EST 05/11/2024 8:16 AM EST [facility] 05/11/2024 2:55 PM EST [facility] Received Date:[id number] Yunior Pérez MD LAB URINE ORDERABLES Fin al Result [facility] [address] [facility] [address]rd Floor, [place] [address], [facility] [address] [facility] [address], [place] [address], * PSA (05/11/2024 8:02 AM EST) Pathologist [facility] [place] PSA 0.04 <=4.00 ng/mL 05/11/2024 8:53 AM EST [facility] Comment: The total PSA [...] AM EST 05/11/2024 8:15 AM EST Yunior Pérze MD LAB BLOOD ORDERABLES Fin al Result Performing Organization Address City/[facility] Co de Phone Number [facility] [address] [place] [address], * (ABNORMAL) Zinc (05/11/2024 8:02 AM EST) Zinc 45(L) 60 - 130 mcg/dL 05/15/2024 11:53 AM EST KIMBERLY LOYOLAERI (LAURA) Comment: This test was developed and its analytical performance characteristics have been determined by [employer] [place], [place]. It has not been cleared or [...] ORDERABLES Fin al Result Performing Organization Address [facility] de Phone Number KIMBERLY LITTLEJOHN (SANCHEZ) [address] [place], [place] , [place] * (ABNORMAL) Vitamin D, 25-Hydroxy, Total, Immunoassay (05/11/2024 8:02 AM EST) Calcidiol+ercalc idiol 13(L) 30 - 100 ng/mL 05/11/2024 11:52 AM EST [facility] Comment: Vitamin D Status ? 25-OH Vitamin D: Deficiency: ?<20 ng/mL Insufficiency: ? 20 - 29 ng/mL Optimal: ? > or = 30 ng/mL For 25-OH Vitamin D testing on patients on D2-supplementation and patients for whom quantitation of D2 and D3 fractions is required, the QuestAssureD(TM) 25-OH VIT D, (D2,D3), LC/MS/MS is recommended: order code 13182 (patients >2yrs). See Note 1 Note 1 For additional information, please refer to http://education.Soft Machines/faq/ZMN890 (This link is being provided for informational/ educational purposes only.) Blood Structure of peripheral vein / Unknown Venipuncture / Unknown 05/11/2024 8:02 AM EST 05/11/2024 8:15 AM EST Narrative [facility] [place] - 05/11/2024 11:52 AM EST [facility] Received Date: Yunior Pérez MD LAB BLOOD ORDERABLES Fin al Result [facility] [address] [facility] [address]rd [address], [place] [address], [facility] [address] [facility] [address], [place] [address], * (ABNORMAL) Vitamin A (Retinol) (05/11/2024 8:02 AM EST) [facility] Vitamin A (Retinol) 15(L) 38 - 98 mcg/dL 05/14/2024 11:11 PM EST KIMBERLY POND) Comment: Vitamin supplementation within 24 hours prior to blood draw may affect the accuracy of the results. This test was developed and its analytical performance characteristics have been determined by [employer] [place], [place]. It has not been cleared or approved by the U.S. Food and Drug Administration. This assay has been validated pursuant to the CLIA regulations and is used for clinical purposes. Blood Structure of peripheral vein / Unknown Venipuncture / Unknown 05/11/2024 8:02 AM EST 05/11/2024 8:10 AM EST E[facility] LITTLEJOHN (LAURA) - 05/14/2024 11:11 PM EST [facility] Received Date:[id number] us Yunior Pérez MD LAB BLOOD ORDERABLES Fin al Result KIMBERLY POND) [address] [place] [address], [place] * Varicella Zoster Antibody, IgG (05/11/2024 8:02 AM EST) Pathologist [facility] [place] Varicella Zoster Virus Antibody 2.40 S/CO 05/11/2024 5:07 PM EST [facility] Comment: ?Signal to Cut-off ? S/CO ?Interpretation [...] - 05/11/2024 5:07 PM EST [facility] Received Date:[id number] us Yunior Pérez MD LAB BLOOD ORDERABLES Fin al Result [facility] IZQUIERDO [address] [facility] [address], [place] [address], [place] [phone] [facility] [address], [place] [address], [place] [phone] * Type and Screen (05/11/2024 8:02 AM [...] - Final [facility] [address] [place] [address], * TSH Reflex Free T4 (05/11/2024 8:02 AM EST) TSH 2.130 0.280 - 3.890 uIU/mL 05/11/2024 8:57 AM EST [facility] Blood Structure of peripheral vein / Unknown Venipuncture / Unknown 05/11/2024 8:02 AM EST 05/11/2024 8:15 AM EST us Yunior Pérez MD LAB BLOOD ORDERABLES Fin al Result [facility] [address] [place] [address], * Toxoplasma gondii Antibody, IgG (05/11/2024 8:02 AM EST) Toxoplasma Ab IgG <7.20 IU/mL 05/11/2024 9:20 PM EST [facility] Comment: ? IU/mL ?Interpretation ? ------ ? <7.20 ?Negative ? 7.20-8.79 ?Equivocal ? >8.79 ?Positive Blood Structure of peripheral vein / Unknown Venipuncture / Unknown 05/11/2024 8:02 AM EST 05/11/2024 8:13 AM EST Narrative [facility] - 05/11/2024 9:20 PM EST [facility] Received Date: Yunior Pérez MD LAB BLOOD ORDERABLES Fin al Result [facility] [place] [address] [facility] [address] Floor, [place] [address], [facility] [address] [facility] [address], [place] [address], * Smooth Muscle Antibody Screen w/Reflex to Titer (05/11/2024 8:02 AM EST) Smooth Muscle AB Screen NEGATIVE NEGATIVE 05/14/2024 3:03 PM EST [facility] Comment: The specimen was negative for cytoplasmic antibodies, however additional staining was observed suggesting the presence of Antinuclear Antibodies. Consider requesting order code 249, SHELLY Screen, IFA with Reflex to Titer and Pattern, or order code [id number], SHELLY Screen, IFA w/reflex Titer/Pattern, and Reflex to Multiplex 11 Ab Mccracken, if clinically indicated. Blood Structure of peripheral vein / Unknown Venipuncture / Unknown 05/11/2024 8:02 AM EST 05/11/2024 8:15 AM EST Narrative [facility] [place] - 05/14/2024 3:03 PM EST [facility] Received Date:[id number] us Yunior Pérez MD LAB BLOOD ORDERABLES Fin al Result [facility] [address], [place] [address], [place] [phone] [facility] [address], [place] [address], [place] [phone] * RPR (Diagnosis) w/Reflex to Titer & TPPA Confirm (05/11/2024 8:02 AM EST) RPR W/Refl Titer NON-REACT COLLINS NON-REACT COLLINS 05/11/2024 1:09 PM EST [facility] Blood Structure of peripheral vein / Unknown Venipuncture / Unknown 05/11/2024 8:02 AM EST 05/11/2024 8:15 AM EST Narrative [facility] [place] - 05/11/2024 1:09 PM EST [facility] Received Date:[id number] us Yunior Pérez MD LAB BLOOD ORDERABLES Fin al Result Performing Organization Address City/[facility]/ZIP Co de Phone Number [facility] [address] [facility] [address] [facility], [place] [address], [place] [phone] [facility] [address], [place] [address], * QuantiFERON-TB Gold Plus, 1 Tube (05/11/2024 8:02 AM EST) QuantiFERON-TB Gold Plus NEGATIVE NEGATIVE 05/14/2024 2:04 PM EST [facility] Comment: Negative test result. M. tuberculosis complex infection unlikely. NIL 0.01 IU/mL 05/14/2024 2:04 PM EST [facility] Mitogen-NIL 9.32 IU/mL 05/14/2024 2:04 PM EST [facility] TB1-NIL 0.00 IU/mL 05/14/2024 2:04 PM EST [facility] TB2-NIL 0.01 IU/mL 05/14/2024 2:04 PM EST [facility] Comment: The Nil tube value [...] T-lymphocytes. For additional information, please refer to https://education.Last Size/faq/SDU075 (This link is being provided for informational/ educational purposes only.) Blood Structure of peripheral vein / Unknown Venipuncture / Unknown 05/11/2024 8:02 AM EST 05/11/2024 8:10 AM EST Narrative [facility] - 05/14/2024 2:04 PM EST [facility] Received Date: us Yunior Pérez MD LAB BLOOD ORDERABLES Fin al Result [facility] [place] [address] [facility] [address], [place] [address], [facility] [address] [facility] [address], [place] [address], * (ABNORMAL) PTT (05/11/2024 8:02 AM EST) [facility] aPTT 33.2(H) 23.0 - 32.0 Seconds 05/11/2024 9:04 AM EST [facility] Comment: Current PTT reagent is not sensitive to detect all Lupus Anticoagulant (LA) Inhibitor Cases. ?? If a LA is suspected, please order a Lupus Anticoagulation w/ Reflex Test which is performed at [facility] in [place], [place]. Blood Structure of peripheral vein / Unknown Venipuncture / Unknown 05/11/2024 8:02 AM EST 05/11/2024 8:13 AM EST Yunior Pérez MD LAB BLOOD ORDERABLES Fin al Result [facility] LAB[facility]ORY [address] [place] [address], * Protime-INR (05/11/2024 8:02 AM EST) PT 11.9 9.6 - 12.4 Seconds 05/11/2024 9:04 AM EST [facility] INR 1.1 0.9 - 1.1 05/11/2024 9:04 AM EST [facility] Comment:The optimal therapeu tic INR range for patients treated with Vitamin K antagonists (VKAS, e.g., Warfarin) is 2.0 to 3.5. Discuss the desired range with your doctor/care team. Blood Structure of peripheral vein / Unknown Venipuncture / Unknown 05/11/2024 8:02 AM EST 05/11/2024 8:13 AM EST Yunior Pérez MD LAB BLOOD ORDERABLES Fin al Result [facility] [address] [place] [address], * Protein Electrophoresis w/Reflex to Immunofixation, Serum (05/11/2024 8:02 AM EST) Protein, Total 6.9 6.1 - 8.1 g/dL 05/11/2024 10:39 PM EST [facility] Albumin 3.8 3.8 - 4.8 g/dL 05/11/2024 10:39 PM EST [facility] Alpha 1 Globulin 0.3 0.2 - 0.3 g/dL 05/11/2024 10:39 PM EST [facility] Alpha 2 Globulin 0.6 0.5 - 0.9 g/dL 05/11/2024 10:39 PM EST [facility] Beta 1 Globulin 0.5 0.4 - 0.6 g/dL 05/11/2024 10:39 PM EST [facility] Beta 2 Globulin 0.3 0.2 - 0.5 g/dL 05/11/2024 10:39 PM EST [facility] Gamma Globulin 1.4 0.8 - 1.7 g/dL 05/11/2024 10:39 PM EST [facility] Interpretation See Comments 05/11/2024 10:39 PM EST [facility] Comment: Normal Serum Protein Electrophoresis Pattern. No abnormal protein bands (M-protein) detected. Blood Structure of peripheral vein / Unknown Venipuncture / Unknown 05/11/2024 8:02 AM EST 05/11/2024 8:14 AM EST [facility] - 05/11/2024 10:39 PM EST [facility] Received Date: Yunior Pérez MD LAB BLOOD ORDERABLES Fin al Result [facility] [address] [facility] [address], [place] [address], [facility] [address] [facility] [address], [place] [address], * Phosphorus (05/11/2024 8:02 AM EST) Phosphorus 3.2 2.5 - 4.5 mg/dL 05/11/2024 8:57 AM EST [email or web address] Blood Structure of peripheral vein / Unknown Venipuncture / Unknown 05/11/2024 8:02 AM EST 05/11/2024 8:15 AM EST Yunior Pérez MD LAB BLOOD ORDERABLES Fin al Result [facility] [address] [place] [address], [place] * Phosphatidylethanol (PEth) (05/11/2024 8:02 AM [...] LABORATORY Comment: Authorized individuals can access the [employer] Enhanced Report with an [employer] Connect account using the following link. Your local lab can assist you in obtaining the patient report if you don't have a Connect account. [email or web address] PEth Interpretation See Comment 04/22 5:33 PM [...] developed and its performance characteristics determined by [employer]. It has not been cleared or approved by the U.S. Food and Drug Administration. This test was performed in a CLIA-certified laboratory and is intended for clinical purposes. Performed By: [email or web address] [address] [place], [place] [id number] Supervisor Paper Testing: Yusuf Lomas MD, PhD CLIA Number: [id number] Blood Structure of peripheral vein / Unknown Venipuncture / Unknown 05/11/2024 8:02 AM EST 05/11/2024 8:15 AM EST Yunior Pérez MD LAB BLOOD ORDERABLES Fin al Result [place] [id number], * (ABNORMAL) MMR Panel, IgG (05/11/2024 8:02 AM EST) Pathologist [facility] [place] Measles Antibody (IgG), Immune Status <13.50(L) AU/mL 05/11/2024 5:16 PM EST [facility] Comment: AU/mL ?Interpretation ----- ? <13.50 ? Not consistent with immunity 13.50-16.49 ?Equivocal >16.49 ? Consistent with immunity The presence of measles IgG suggests immunization or past or current infection with measles virus. For additional information, please refer to http://education.Soft Machines/faq/LOU017 (This link is being provided for informational/ educational purposes only.) Mumps Antibody (IgG), Immune Status <9.00(L) AU/mL 05/11/2024 5:16 PM EST [facility] Comment: AU/mL ? Interpretation ------- ? <9.00 ? Not consistent with immunity 9.00-10.99 ?Equivocal >10.99 ?Consistent with immunity The presence of mumps IgG antibody suggests immunization or past or current infection with mumps virus. Rubella Antibody (IgG), Immune Status <0.90(L) Index 05/11/2024 5:16 PM EST [facility] Comment: ?Index ?Interpretation ?----- ?<0.90 ?Not consistent [...] ORDERABLES Fin al Result [facility] IZQUIERDO [address] [facility] [address], [place] [address], [place] [phone] [facility] [address], [place] [address], [place] [phone] * Magnesium (05/11/2024 8:02 AM EST) MG 1.9 1.6 - 2.4 mg/dL 05/11/2024 8:57 AM EST [facility] Blood Structure of peripheral vein / Unknown Venipuncture / Unknown 05/11/2024 8:02 AM EST 05/11/2024 8:15 AM EST us Yunior Pérez MD LAB BLOOD ORDERABLES Fin al Result Performing Organization Address [facility] Co de Phone Number [facility] LAB[facility]AT[facility] [address] [place] [address], [place] * (ABNORMAL) Iron Saturation (05/11/2024 8:02 AM EST) Iron Saturation 6(L) 20 - 50 % 8:57 AM EST [facility] Iron 25(L) 45 - 160 ug/dL 05/11/2024 8:57 AM EST [facility] Transferrin 316 200 - 360 mg/dL 05/11/2024 8:57 AM EST [facility] [employer] [facility] Total Iron Binding Capacity 395 255 - 450 ug/dL 05/11/2024 8:57 AM EST [facility] Blood Structure of peripheral vein / Unknown Venipuncture / Unknown 05/11/2024 8:02 AM EST 05/11/2024 8:15 AM EST us Yunior Pérez MD LAB BLOOD ORDERABLES Fin al Result Performing Organization Address [facility]/ZIP Co de Phone Number [facility] [facility] LAB[facility]ORY [address] [place] [address], [place] * (ABNORMAL) Herpes Simplex Virus 1&2, IgG (05/11/2024 8:02 AM EST) HSV 1 IgG Type Specific Ab <0.90 index 05/11/2024 9:20 PM EST [facility] HSV 2 IgG Type Specific Ab 1.66(H) index 05/11/2024 9:20 PM EST [facility] Comment: ?Index ?Interpretation ?----- ?<0.90 ?Negative ?0.90-1.09 ?Equivocal ?>1.09 ?Positive Low HSV-2 IgG positive results (index values between 1.10-3.00) may represent false positive results. CDC 2020 guidelines recommend confirmatory testing of samples with low-positive HSV-2 IgG results. If clinically indicated, consider adding on HSV-2 IgG Inhibition, by contacting [employer] [facility]. For additional information, please refer to: https://www.Last Size/healthcare- professionals/shxzxgpr-udenectzd-hmadtj/faq/faq73 (This link is being provided for informational/ [...] screening. For additional information, please refer to http://education.Aoi.Co.Visual Threat/faq/SSS336 (This link is being provided for informational/ educational purposes only.) ?? Blood Structure of peripheral vein / Unknown Venipuncture / Unknown 05/11/2024 8:02 AM EST 05/11/2024 8:13 AM EST Narrative [facility] - 05/11/2024 9:20 PM EST [facility] Received Date:[id number] us Yunior Pérez MD LAB BLOOD ORDERABLES Fin al Result Performing Organization Address City/[facility]/ZIP Co de Phone Number [facility] [address], [place] [address], [place] [phone] [facility] [address], [place] [address], [place] [phone] * Hepatitis C Antibody w/Reflex to PCR (05/11/2024 8:02 AM EST) Hepatitis C Antibody NON-REACT COLLINS NON-REACT COLLINS 05/11/2024 11:44 AM EST [facility] Comment: HCV antibody was non-reactive. There is no laboratory evidence of HCV infection. In most cases, no further action is required. However, if recent HCV exposure is suspected, a test for HCV RNA (test code 06692) is suggested. For additional information please refer to http://Mountain Machine Games.[employer].Visual Threat/faq/AUK57y2 (This link is being provided for informational/ educational purposes only.) Blood Structure of peripheral vein / Unknown Venipuncture / Unknown 05/11/2024 8:02 AM EST 05/11/2024 8:15 AM EST Narrative [facility] - 05/11/2024 11:44 AM EST [facility] Received Date:[id number] us Yuniro Pérez MD LAB BLOOD ORDERABLES Fin al Result Performing Organization Address City/[facility]/ZIP Co de Phone Number [facility] [address], [place] [address], [place] [phone] [facility] [address] [facility] [address]rd [address], [place] [address], * (ABNORMAL) Hepatitis B Surface Antibody (05/11/2024 8:02 AM EST) Pathologist [facility] [place] Hepatitis B Surface Ab Immunity, Qn <5(L) > OR = 10 mIU/mL 05/11/2024 11:44 AM EST [facility] Comment: PATIENT DOES NOT HAVE IMMUNITY TO HEPATITIS B VIRUS. For additional information, please refer to http://Mountain Machine Games.Last Size/faq/BIJ597 (This link is being provided for informational/ educational purposes only). Blood Structure of peripheral vein / Unknown Venipuncture / Unknown 05/11/2024 8:02 AM EST 05/11/2024 8:15 AM EST Narrative [facility] [place] - 05/11/2024 11:44 AM EST [facility] Received Date: Yunior Pérez MD LAB BLOOD ORDERABLES Fin al Result [facility] [address] [facility] [address], [place] [address], [facility] [address] [facility] [address], [place] [address], * Hepatitis B Surface Antigen w/Confirmation (05/11/2024 8:02 AM EST) Pathologist [facility] [place] Hepatitis B Surface Antigen NON-REACT COLLINS NON-REACT COLLINS 05/11/2024 11:44 AM EST [facility] Comment: For additional information, please refer to http://Mountain Machine Games.Last Size/faq/KTF753 (This link is being provided for informational/ educational purposes only.) Blood Structure of peripheral vein / Unknown Venipuncture / Unknown 05/11/2024 8:02 AM EST 05/11/2024 8:15 AM EST Narrative [facility] - 05/11/2024 11:44 AM EST [facility] Received Date:[id number] us Yunior Pérez MD LAB BLOOD ORDERABLES Fin al Result [facility]LY IZQUIERDO [address] [facility] [address] [facility], [address] [facility] [place] [address], [place] [phone] [facility] [address], [place] [address], [place] [phone] * Hepatitis B Core Antibody, Total (05/11/2024 8:02 AM EST) Hepatitis B Core Ab Total NON-REACT COLLINS NON-REACT COLLINS 05/11/2024 11:44 AM EST [facility] Comment: For additional information, please refer to http://Mountain Machine Games.Last Size/faq/ZIP393 (This link is being provided for informational/ educational purposes only.) Blood Structure of peripheral vein / Unknown Venipuncture / Unknown 05/11/2024 8:02 AM EST 05/11/2024 8:15 AM EST [facility] - 05/11/2024 11:44 AM EST [facility] Received Date:[id number] us Yunior Pérez MD LAB BLOOD ORDERABLES Fin al Result Performing Organization Address City/[facility]/ZIP Co de Phone Number KIMBERLY IZQUIERDO [address], [place] [address], [place] [phone] [facility] [address], [place] [address], [place] [phone] * Hepatitis A Antibody, Total (05/11/2024 8:02 AM EST) Hepatitis A Ab, Total NON-REACT COLLINS NON-REACT COLLINS 05/11/2024 11:44 AM EST [facility] Comment: For additional information, please refer to http://Mountain Machine Games.Last Size/faq/EOS006 (This link is being provided for informational/ educational purposes only.) Blood Structure of peripheral vein / Unknown Venipuncture / Unknown 05/11/2024 8:02 AM EST 05/11/2024 8:15 AM EST [employer] [facility] - 05/11/2024 11:44 AM EST [facility] Received Date: Yunior Pérez MD LAB BLOOD ORDERABLES Fin al Result [facility] [address] [facility] [address], [place] [address], [employer] [address] [facility] [address], [place] [address], * Hemoglobin A1c (05/11/2024 8:02 AM EST) Hemoglobin A1C 4.7 <5.7 % of total Hgb 05/12/2024 10:03 AM [facility] Comment: For the purpose of screening for the presence of diabetes: <5.7% ? Consistent with the absence of diabetes 5.7-6.4% ?Consistent with increased risk for diabetes ?(prediabetes) > or =6.5% ??Consistent with diabetes This assay result is consistent with a decreased risk of diabetes. Currently, no consensus exists regarding use of hemoglobin A1c for diagnosis of diabetes in children. According to [place] Diabetes Association (ADA) guidelines, hemoglobin A1c <7.0% represents optimal control in non- diabetic patients. Different metrics may apply to specific patient populations. Standards of Medical Care in Diabetes(ADA). ?? eAG (MG/DL) 88 mg/dL 05/12/2024 10:03 AM EST [employer] eAG (MMOL/L) 4.9 mmol/L 05/12/2024 10:03 AM [facility] Blood Structure of peripheral vein / Unknown Venipuncture / Unknown 05/11/2024 8:02 AM EST 05/11/2024 8:15 AM EST Narrative [facility] [place] - 05/12/2024 10:03 AM EST [facility] Received Date:[id number] us Yunior Pérez MD LAB BLOOD ORDERABLES Fin al Result Performing Organization Address [facility]/ZIP Co de Phone Number [facility] [place] [address] [facility] [address], [place] [address], [place] [phone] [facility] [address] [facility] [address], [place] [address], [place] [phone] * Ferritin (05/11/2024 8:02 AM EST) [facility] Ferritin 44.9 23.0 - 336.0 ng/mL 05/11/2024 8:57 AM EST [facility] Blood Structure of peripheral vein / Unknown Venipuncture / Unknown 05/11/2024 8:02 AM EST 05/11/2024 8:15 AM EST us Yunior Pérez MD LAB BLOOD ORDERABLES Fin al Result Performing Organization Address [facility] de Phone Number [facility] [address] [place] [address], * (ABNORMAL) Nikhil-Mae Virus VCA, IgG (05/11/2024 8:02 AM EST) [facility] EBV Viral Capsid Ag Ab (IGG) >750.00(H ) U/mL 05/11/2024 5:16 PM EST [facility] Comment: ? U/mL ? Interpretation ? ---- ? <18.00 ? Negative ? 18.00-21.99 ?Equivocal ? >21.99 ? Positive Blood Structure of peripheral vein / Unknown Venipuncture / Unknown 05/11/2024 8:02 AM EST 05/11/2024 8:15 AM EST Narrative [facility] [place] - 05/11/2024 5:16 PM EST [facility] Received Date:[id number] Yunior Pérez MD LAB BLOOD ORDERABLES Fin al Result [facility] [address] [facility] 3rd Floor, [place] [address], [facility] 200 [facility] 3rd Floor, [place] [address], * (ABNORMAL) Cytomegalovirus Antibody, IgG (05/11/2024 8:02 AM EST) Cytomegalovirus Antibody (IgG) 6.00(H) U/mL 05/12/2024 4:15 AM EST [facility] Comment: ? U/mL ? Interpretation ? ----- ? <0.60 ? Negative ? 0.60-0.69 ? Equivocal ? > or = 0.70 ?? Positive A positive result indicates that the patient has antibody to CMV. It does not differentiate between an active or past infection. Blood Structure of peripheral vein / Unknown Venipuncture / Unknown 05/11/2024 8:02 AM EST 05/11/2024 8:15 AM EST Narrative [facility] [place] - 05/12/2024 4:15 AM EST [facility] Received Date: us Yunior Pérez MD LAB BLOOD ORDERABLES Fin al Result [facility] [place] [place] [address] [facility] [address] Floor, [place] [address], [facility] 200 [facility] 3rd Floor, [place] [address], [place] [phone] * (ABNORMAL) Comprehensive Metabolic Panel (05/11/2024 8:02 [...] - 5.2 g/dL 05/11/2024 8:57 AM EST [facility] Bilirubin, Total 1.5(H) 0.2 - 1.2 mg/dL 05/11/2024 8:57 AM EST [facility] Alkaline Phosphatase 165(H) 35 - 129 U/L 05/11/2024 8:57 AM EST [facility] AST 23 10 - 40 U/L 05/11/2024 8:57 AM EST [facility] ALT 11 10 - 40 U/L 05/11/2024 8:57 AM EST [facility] BUN 16 7 - 23 mg/dL 05/11/2024 8:57 AM EST [facility] eGFR 74 >=60 mL/min/1. 73m2 05/11/2024 8:57 AM EST [facility] Comment:The estimated glomer ular [...] - 4.2 g/dL 05/11/2024 8:57 AM EST [facility] A/G Ratio 1.2(L) 1.5 - 3.0 05/11/2024 8:57 AM EST [facility] Blood Structure of peripheral vein / Unknown Venipuncture / Unknown 05/11/2024 8:02 AM EST 05/11/2024 8:15 AM EST us Yunior Pérez MD LAB BLOOD ORDERABLES Fin al Result [facility] [address] [place] [address], * Ceruloplasmin (05/11/2024 8:02 AM EST) Ceruloplasmin 19 14 - 30 mg/dL 05/13/2024 1:07 AM EST [facility] Blood Structure of peripheral vein / Unknown Venipuncture / Unknown 05/11/2024 8:02 AM EST 05/11/2024 8:15 AM EST Narrative [facility] - 05/13/2024 1:07 AM EST [facility] Received Date: Yunior Pérez MD LAB BLOOD ORDERABLES Fin al Result Performing Organization Address [facility] Co de Phone Number [facility] [address] [facility] [address], [place] [address], [place] [phone] [facility] 200 [facility] 3rd Floor, [place] [address], [place] [phone] * (ABNORMAL) Lipid panel (05/11/2024 8:02 AM EST) Cholesterol 142 <=199 mg/dL 05/11/2024 8:57 AM EST [facility] Triglycerides 82 <=149 mg/dL 05/11/2024 8:57 AM EST [facility] Cholesterol, HDL 71(H) 40 - 59 mg/dL 05/11/2024 8:57 AM EST [facility] Cholesterol, Non-HDL 71 mg/dL 05/11/2024 8:57 AM EST [facility] LDL Cholesterol 55 <100 mg/dL 05/11/2024 8:57 AM EST [facility] VLDL 16.4 mg/dL 05/11/2024 8:57 AM EST [facility] Cholesterol/HDL Ratio 2.0 <5.0 05/11/2024 8:57 AM EST [facility] Blood Structure of peripheral vein / Unknown Venipuncture / Unknown 05/11/2024 8:02 AM EST 05/11/2024 8:15 AM EST Narrative [facility] - 05/11/2024 8:57 AM [...] [facility] [address] [place] [address], [place] * (ABNORMAL) CBC Auto Differential (05/11/2024 [...] % 1.0 % 05/11/2024 8:22 AM EST [facility] Neutrophil # 5.60 1.50 - 7.80 10*3/uL 05/11/2024 8:22 AM EST [facility] Immature Grans # 0.03 <=0.03 10*3/uL 05/11/2024 8:22 AM EST [facility] Lymphocyte # 1.60 0.85 - 3.90 10*3/uL 05/11/2024 8:22 AM EST [facility] Monocyte # 1.10(H) 0.20 - 0.95 10*3/uL 05/11/2024 8:22 AM EST [facility] Eosinophil # 0.20 0.02 - 0.50 10*3/uL 05/11/2024 8:22 AM EST [facility] Basophil # 0.10 0.00 - 0.20 10*3/uL 05/11/2024 8:22 AM EST [facility] nRBC % 0.0 /100 WBCs 05/11/2024 8:22 AM EST [facility] nRBC # <0.01 <0.01 10*3/uL 05/11/2024 8:22 AM EST [facility] Blood Structure of peripheral vein / Unknown Venipuncture / Unknown 05/11/2024 8:02 AM EST 05/11/2024 8:15 AM EST Yunior Pérez MD LAB BLOOD ORDERABLES Fin al Result [facility] [address] [place] [address], * Mitochondrial Antibody w/Reflex (05/11/2024 8:02 AM EST) Mitochondrial Ab Screen NEGATIVE NEGATIVE 05/14/2024 3:03 PM EST [facility] Comment: The specimen was negative for cytoplasmic antibodies, however additional staining was observed suggesting the presence of Antinuclear Antibodies. Consider requesting order code 249, SHELLY Screen, IFA with Reflex to Titer and Pattern, or order code [id number], SHELLY Screen, IFA w/reflex Titer/Pattern, and Reflex to Multiplex 11 Ab Mccracken, if clinically indicated. Blood Structure of peripheral vein / Unknown Venipuncture / Unknown 05/11/2024 8:02 AM EST 05/11/2024 8:13 AM EST Narrative [facility] [place] - 05/14/2024 3:03 PM EST [facility] Received Date:[id number] us Yunior Pérez MD LAB BLOOD ORDERABLES Christian briceno Result [facility] 200 [facility] [address] [facility], [place] [address], [facility] [address], [place] [address], * (ABNORMAL) Cystatin C with Glomerular Filtration [...] - 05/17/2024 12:21 PM EST [facility] Received Date:[id number] us Yunior Pérez MD LAB BLOOD ORDERABLES King ben Result - Final [facility] POND) [address] [place] [address], [place] * (ABNORMAL) Bilirubin, Direct (05/11/2024 8:02 AM EST) Bilirubin, Direct 0.8(H) <=0.4 mg/dL 05/11/2024 8:57 AM EST [facility] Blood Structure of peripheral vein / Unknown Venipuncture / Unknown 05/11/2024 8:02 AM EST 05/11/2024 8:15 AM EST us Yunior Pérez MD LAB BLOOD ORDERABLES Fin al Result Performing Organization Address [facility] Co de Phone Number [facility] [address] [place] [address], [place] * (ABNORMAL) SHELLY Screen, Reflex to Titer, IFA (05/11/2024 8:02 AM EST) SHELLY Screen, IFA POSITIVE (A) NEGATIVE 05/16/2024 12:00 PM EST [facility] Comment: SHELLY IFA is a first line screen for detecting the presence of up to approximately 150 autoantibodies in various autoimmune diseases. A positive SHELLY IFA result is suggestive of autoimmune disease and reflexes to titer and pattern. Further laboratory testing may be considered if clinically indicated. For additional information, please refer to http://education.[employer]/faq/QAR200 (This link is being provided for informational/ educational purposes only.) ?? Blood Structure of peripheral vein / Unknown Venipuncture / Unknown 05/11/2024 8:02 AM EST 05/11/2024 8:15 AM EST Narrative [facility] - 05/16/2024 12:00 PM EST [facility] Received Date:[id number] us Yunior Pérez MD LAB BLOOD ORDERABLES Fin al Result Performing Organization Address City/[facility]/ZIP Co de Phone Number [facility] [address] [place] [address] [address]rd Floor, [address] [place] [address], [place] [phone] [facility] [address], [address] [place] [address], * (ABNORMAL) AFP Tumor Marker (05/11/2024 8:02 AM EST) Pathologist [facility] [place] Alpha Fetoprotein, Tumor Marker 7.4(H) <6.1 ng/mL 05/14/2024 1:16 PM EST [facility] Comment: This test was performed using the Bakari Paco chemiluminescent method. Values obtained from different assay methods cannot be used interchangeably. AFP levels, regardless of value, should not be interpreted as absolute evidence of the presence or absence of disease. Blood Structure of peripheral vein / Unknown Venipuncture / Unknown 05/11/2024 8:02 AM EST 05/11/2024 8:15 AM EST Narrative [facility] - 05/14/2024 1:16 PM EST [facility] Received Date: Yunior Pérez MD LAB BLOOD ORDERABLES Fin al Result [facility] [address], [place] [address], [facility] [address], [place] [address], * Ypabw-8-Iqdhgguwiwk (AAT) Phenotype (05/11/2024 8:02 AM EST) Pathologist [facility] [place] Alpha 1 Antitrypsin Phenotype SEE NOTE 05/15/2024 1:10 PM EST [facility]RACHAEL [facility]OSTER Comment: THIS PATIENT'S IYVOL-3-[id number] PHENOTYPE IS PI*MM. 90% of normal individuals have the MM phenotype, with normal quantitative AAT levels. Many phenotypic patterns have been described, including deficiency states with F, S, Z, or other alleles. As a general estimation, compared to M allele of 100% of normal K-2-Jvgoubigzcn protein, the S allele produces approximately 60% and the Z allele 20%. For example, an MS phenotype would have about 80% of normal W-3-Xwfcsapqjww protein level, a 50% contribution from the M allele and 30% from the S allele. A ZZ phenotype would have about 20% of normal levels, a 10% contribution from each Z gene. The F allele has normal I-6-Vrwllklsexg levels, but the kinetics of elastase inhibition [...] 8:02 AM EST 05/11/2024 8:13 AM EST [facility] - 05/15/2024 1:10 PM EST [facility] Received Date: Yunior Pérez MD LAB BLOOD ORDERABLES Fin al Result [facility] [address] [place] [address] 3rd Floor, [place] [address], [place] [phone] [facility] [address] [place] [address], [place] [phone] * Ethanol (05/11/2024 8:02 AM EST) Ethanol <10 <10 mg/dL 05/11/2024 8:53 AM EST [facility] Blood Structure of peripheral vein / Unknown Venipuncture / Unknown 05/11/2024 8:02 AM EST 05/11/2024 8:11 AM EST us Yunior Pérez MD LAB BLOOD ORDERABLES Fin al Result [facility] [address] [place], [place] [address] [place] documented in this encounter Visit Diagnoses Diagnosis Encounter for pre-transplant evaluation for liver transplant- Primary documented in this encounter Care Teams Continuity Writer Relationship Specialty Start Date End Date Gulshan Chanel [address] [place] [address] PCP - General 04/17/24 documented as of this encounter
--- OUTSIDE RECORDS SUMMARY | 2024-05-31 19:08 | XMS_ITS | Referral Summary ---
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 Name Role Phone Gulshan Chanel García Primary Care Provider [phone] Encounters Date Type Department Care Team Description 05/24/2024 Telephone [facility] Transplant Department [address] [place] [address] 13856 Angela Weaver, LUDY 05/18/2024 Orders Only [facility] Transplant Department [address] [place] [address] 00755 Angela Weaver, LUDY Encounter for pre-transplant evaluation for liver transplant (Primary Dx) 05/16/2024 Orders Only [facility] Transplant Department [address] [place] [address] 00375 Angela Weaver, RN Alcoholic cirrhosis of liver with ascites (CMS/HCC) (HCC) (Primary Dx) 05/16/2024 Telephone [facility] Gastroenterology Clinic [address] [place] [address] 06841 Christmas Bell Ringer: Yunior Bravo MD 05/16/2024 Results Follow-Up [facility] Liver Transplant Services [address] [place] [address] 15024 Angela Weaver, LUDY 05/16/2024 Telephone [facility] Transplant Department [address] [place] [address] 02483 Angela Weaver, LUDY 05/15/2024 Results Follow-Up [facility] Liver Transplant Services [address] [place] [address] 69325 Angela Weaver, LUDY 05/11/2024 Refill [facility] Transplant Department [address] [place] [address] 13023 Alena Olivier Hepatic cirrhosis, unspecified hepatic cirrhosis type, unspecified whether ascites present (CMS/HCC) (HCC) (Primary Dx); Moderate protein-calorie malnutrition (HCC) 05/11/2024 10:28 AM EST - 05/11/2024 11:59 PM EST Hospital Encounter [facility] CT Scan [address] [place] [address] 01510 Yunior Pérez MD Discharge Disposition: Home or Self Care (01) 05/11/2024 11:45 AM EST Office Visit [facility] Liver Transplant Services [address] [place] [address] 93638 Evelyn Barr RN Awaiting organ transplant (Primary Dx) 05/11/2024 12:15 PM EST Social Work [facility] Liver Transplant Services [address] [place] [address] 36333 [facility] 05/11/2024 1:00 PM EST Office Visit [facility] Liver Transplant Services [address] [place] [address] 00697 Nathan Ortiz MD Encounter for pre-transplant evaluation for chronic liver disease (Primary Dx) 05/11/2024 1:45 PM EST Nutrition [facility] Liver Transplant Services [address] [place] [address] 05/11/2024 2:30 PM EST Office Visit [facility] Liver Transplant Services [address] [place] [address] 58436 Preeti Mcdaniel MD Co, Elizabeth Hartmann MD Special screening examination for infectious diseases (Primary Dx); Encounter for pre-transplant evaluation for liver transplant; Cytomegalovirus infection, unspecified cytomegaloviral infection type (HCC) 05/11/2024 3:15 PM EST Office Visit [facility] Liver Transplant Services [address] [place] [address] 53336 Kash Ramirez MD PhD Alcoholic cirrhosis of liver with ascites (CMS/HCC) (HCC) (Primary Dx); Portal hypertension (CMS/HCC) (HCC); Moderate protein-calorie malnutrition (HCC); Secondary esophageal varices without bleeding (HCC) 05/11/2024 8:35 AM EST - 05/11/2024 10:27 AM EST Hospital Encounter [facility] ACC Building Cardiac Ultrasound [address] [place] [address] 76852 Yunior Pérez MD Discharge Disposition: Home or Self Care (01) 05/09/2024 Telephone [facility] Transplant Department [address] [place] [address] 06495 Angela Weaver, LUDY 05/08/2024 Telephone [facility] Transplant Department [address] [place] [address] 57128 Angela Weaver, LUDY 05/01/2024 Telephone [facility] Transplant Department [address] [place] [address] 53750 Angela Weaver, LUDY 04/18/2024 Orders Only [facility] Transplant Department [address] [place] [address] 06452 Angela Weaver, RN Encounter for pre-transplant evaluation for liver transplant (Primary Dx) 04/17/2024 Orders Only [facility] Nuclear Medicine [address] [place] [address] 02184 Nurys Rutherford MD 04/17/2024 Abstract [facility] Transplant Department [address] [place] [address] 58809 Yunior Pérez MD 04/17/2024 1:00 PM EST Office Visit [facility] Liver Transplant Services [address] [place] [address] 25994 Yunior Pérez MD Encounter for pre-transplant evaluation for liver transplant (Primary Dx) 04/17/2024 12:00 PM EST Evaluation [facility] Liver Transplant Services [address] [place] [address] 47982 Angela Weaver, RN Encounter for pre-transplant evaluation for liver transplant (Primary Dx) 04/12/2024 Documentation [facility] Transplant Department [address] [place] [address] 20170 Shaka-MacPhers on, Radha F., ONLINE MARKETING DIRECTOR Transportation 04/11/2024 Orders Only [facility] Transplant Department [address] [place] [address] 36865 Angela Weaver, RN Encounter for pre-transplant evaluation for liver transplant (Primary Dx) 04/06/2024 Telephone [facility] Transplant Department [address] [place] [address] 20079 Angela Weaver, RN 04/05/2024 Telephone [facility] Transplant Department [address] [place] [address] 50701 Yell-MacPhers on, Radha F., ONLINE MARKETING DIRECTOR secondary social studies teacher 03/30/2024 Telephone [facility] Transplant Department [address] [place] [address] 10827 Shaka-MacPhers on, Radha F., ONLINE MARKETING DIRECTOR Transportation 03/29/2024 Telephone [facility] Transplant Department [address] [place] [address] 61011 Angela Weaver, RN 03/29/2024 Documentation [facility] Transplant Department [address] [place] [address] 35597 Yell-MacPhers on, Radha F., ONLINE MARKETING DIRECTOR Transportation 03/16/2024 Orders Only [facility] Transplant Department [address] [place] [address] 79348 Provider, Unknown, MD 03/15/2024 Orders Only [facility] Transplant Department [address] [place] [address] ProviderTimothy MD from Last 3 Months Allergies [...] extended release Take by mouth. 4 Active mtzqfqj-XYPI-zsc-v qkeb-ewvp-hz 0.42-99-600-200 mg capsule 5 mg. 4 Active magnesium [...] by mouth 2 (two) times a day. 29209 mL 3 5 Active vitamin A 3,000 [...] 06/11/2024 10:30 AM EDT Follow-Up [facility] Liver Transplant Services [address] [place] [address] 61467 Nathan Ortiz MD [address] [place] [address] 06/11/2024 11:00 AM EDT Clinical Support [facility] Liver Transplant Services [address] [place] [address] [phone] Procedures * Due to [place] state law, this organization might not be [...] Encounter for pre-transplant evaluation for liver transplant [id number] (AAT) PHENOTYPE Routine 05/11/2024 8:02 AM EST [...] CYSTATIN C WITH GLOMERULAR FILTRATION RATE, ESTIMATED (EGFR)-[id number] Routine 05/11/2024 8:02 AM EST Encounter for [...] for pre-transplant evaluation for liver transplant PHOSPHATIDYLETHANOL-ARU [id number] Routine 05/11/2024 8:02 AM EST Encounter for [...] for liver transplant QUANTIFERON-TB GOLD PLUS, 1 [id number] Routine 05/11/2024 8:02 AM EST Encounter for pre-transplant evaluation for liver transplant RPR (DIAGNOSIS) W/REFLEX TO TITER & TPPA [id number] Routine 05/11/2024 8:02 AM EST Encounter for [...] for pre-transplant evaluation for liver transplant ZINC, PLASMA/[id number] Routine 05/11/2024 8:02 AM EST Encounter for pre-transplant evaluation for liver transplant PSA Routine 05/11/2024 8:02 AM EST Encounter for pre-transplant evaluation for liver transplant LIVER PRE EXTERNAL PANEL Routine 04/16/2024 from Last 3 Months Results * Due to [place] state law, this organization might not be [...] obtain the completed interpretation. ? Workstation ID: [id number] Up-to-date CT equipment and radiation dose reduction techniques were employed. CTDIvol: 3.0 - 14.6 mGy. DLP: 1699 mGy-cm. ??The following accession numbers are related to this dose report [id number]: [id number] Narrative 05/14/2024 7:59 PM EST EXAMINATION: CT [...] image 107 series 10. Resulting Agency Comment [id number] Procedure Note Christen Aviles MD - 05/14/2024 [...] 3. Cholelithiasis and choledocholithiasis. Punctate calculus seen series 4 within the distal CBD. Can [...] possible to obtain thecompleted interpretation. Workstation ID: [id number] Up-to-date CT equipment and radiation dose reduction techniques wereemployed. CTDIvol: 3.0 - 14.6 mGy. DLP: 1699 mGy-cm. The followingaccession numbers are related to this dose report [id number]: [id number] Yunior Pérez MD IM CT PROCEDURES Final [...] obtain the completed interpretation. ? Workstation ID: [id number] Up-to-date CT equipment and radiation dose reduction techniques were employed. CTDIvol: 3.0 - 14.6 mGy. DLP: 1699 mGy-cm. ??The following accession numbers are related to this dose report [id number]: [id number] Narrative 05/17/2024 4:11 PM EST Indication: ??pre [...] vertebral disease. Bilateral gynecomastia. Resulting Agency Comment [id number] Procedure Note Sidney Delatorre MD PhD - [...] possible to obtain thecompleted interpretation. Workstation ID: [id number] Up-to-date CT equipment and radiation dose reduction techniques wereemployed. CTDIvol: 3.0 - 14.6 mGy. DLP: 1699 mGy-cm. The followingaccession numbers are related to this dose report [id number]: [id number] Yunior Pérez MD IMG CT PROCEDURES Final [...] BSA 1.85 RIGHT ATRIAL PRESSURE 3 mmHg [facility] RV TISSUE DOPPLER S' 12.0 cm/s [...] Doppler. Myocardial deformation imaging was performed using [employer]. During the study the apical, parasternal, subcostal and suprasternal view was captured. Overall the study quality was adequate. Prior Study No prior study available for comparison. STRESS ECHO OVERALL FINDINGS Normal RV size and systolic function. No significant valvular disease identified. Yunior Pérez MD CV ECHO PROCEDURES Final Result * Comprehensive Drug Panel, Urine (05/11/2024 8:11 AM EST) [facility] Comprehensive Drug Screen Urine DRUGS DETECTED 05/11/2024 2:55 PM EST [employer] Comment: NICOTINE GABAPENTIN COTININE CAFFEINE TRAMADOL AND METABOLITE Urine Voided urine specimen / Unknown Non-Blood Collection / Unknown 05/11/2024 8:11 AM EST 05/11/2024 8:16 AM EST Narrative [facility] - 05/11/2024 2:55 PM EST [facility] Received Date: us Yunior Pérez MD LAB URINE ORDERABLES Fin al Result [employer] [facility] [address] [facility] 3rd Floor, [place] [address], [place] [phone] [facility] [address], [place] [address], [place] [phone] * (ABNORMAL) Cystatin C with Glomerular Filtration [...] ben Result - Final [facility] LITTLE[facility]OHN (LAURA) [address] [place], [place] , [place] * (ABNORMAL) SHELLY, Titer and Pattern (05/11/2024 8:02 AM EST) SHELLY Titer 1 1:320(H) titer 05/16/2024 12:01 PM EST [employer] Comment: ?Reference Range ?<1:40 ?Negative ?1:40-1:80 ?Low Antibody Level ?>1:80 ?Elevated Antibody Level SHELLY Pattern 1 Nuclear, Homogeneo us(A) 05/16/2024 12:01 PM EST [employer] Comment: Homogeneous pattern is associated with systemic lupus erythematosus (SLE), drug-induced lupus and juvenile idiopathic arthritis. AC-1: Homogeneous International Consensus on SHELLY Patterns (https://doi.org/10.1515/rgzh-8659-3718) SHELLY Titer 2 1:320(H) titer 05/16/2024 12:01 PM EST [employer] Comment: ?Reference Range ?<1:40 ?Negative ?1:40-1:80 ?Low Antibody Level ?>1:80 ?Elevated Antibody Level SHELLY Pattern 2 Nuclear, Speckled( A) 05/16/2024 12:01 PM EST [employer] Comment: Speckled pattern is associated with mixed connective tissue disease (MCTD), systemic lupus erythematosus (SLE), Sjogren's syndrome, dermatomyositis, and systemic sclerosis/polymyositis overlap. AC-2,4,5,29: Speckled International Consensus on SHELLY Patterns (https://doi.org/10.1515/vcqa-3689-3255) Blood Structure of peripheral vein / Unknown Venipuncture / Unknown 05/11/2024 8:02 AM EST 05/11/2024 8:15 AM EST Narrative [facility] IZQUIERDO - 05/16/2024 12:01 PM EST [facility] Received Date: Yunior Pérez MD LAB BLOOD ORDERABLES Fin al Result [facility] [address] [facility] [address] Floor, [place] [address], [employer] [facility] [address] [facility] 3rd Floor, [place] [address], * Phosphatidylethanol (PEth) (05/11/2024 8:02 AM EST) [...] LABORATORY Comment: Authorized individuals can access the [employer]Talk Enhanced Report with an [employer] Connect account using the following link. Your local lab can assist you in obtaining the patient report if you don't have a Connect account. [email or web address] PEth Interpretation See Comment 04/22 5:33 PM [...] developed and its performance characteristics determined by [facility]. It has not been cleared or approved by the U.S. Food and Drug Administration. This test was performed in a CLIA-certified laboratory and is intended for clinical purposes. Performed By: [facility] [address] [place] [id number] Systems Checkout Mechanic: Yusuf Lomas MD, PhD CLIA Number: [id number] Blood Structure of peripheral vein / Unknown Venipuncture / Unknown 05/11/2024 8:02 AM EST 05/11/2024 8:15 AM EST Yunior Pérez MD LAB BLOOD ORDERABLES Fin al Result [facility] [address] [place] [address], * Eypvl-6-Fuejlmniori (AAT) Phenotype (05/11/2024 8:02 AM EST) Alpha 1 Antitrypsin Phenotype SEE NOTE 05/15/2024 1:10 PM EST [facility]ACHAEL L[facility]LEJOHN CHEMEHUEVIDEVYN MENDEZ Comment: THIS PATIENT'S UWMNE-7-VVSHBEBLVYS PHENOTYPE IS PI*MM. 90% of normal individuals have the MM phenotype, with normal quantitative AAT levels. Many phenotypic patterns have been described, including deficiency states with F, S, Z, or other alleles. As a general estimation, compared to M allele of 100% of normal Y-0-Jxfxthblgsm protein, the S allele produces approximately 60% and the Z allele 20%. For example, an MS phenotype would have about 80% of normal J-1-Gwebhsbybbd protein level, a 50% contribution from the M allele and 30% from the S allele. A ZZ phenotype would have about 20% of normal levels, a 10% contribution from each Z gene. The F allele has normal Q-5-Dermwqjrrkl levels, but the kinetics of elastase inhibition [...] 8:02 AM EST 05/11/2024 8:13 AM EST [facility] - 05/15/2024 1:10 PM EST [facility] Received Date: us Yunior Pérez MD LAB BLOOD ORDERABLES Fin al Result [facility] IZQUIERDO [address] [facility] 3rd Floor, [place] [address], [place] [phone] [employer]/[facility] [place] [address] [place] [address], [place] [phone] * (ABNORMAL) MMR Panel, IgG (05/11/2024 8:02 AM EST) Pathologist [facility] Measles Antibody (IgG), Immune Status <13.50(L) AU/mL 05/11/2024 5:16 PM EST [facility] Comment: AU/mL ?Interpretation ----- ? <13.50 ? Not consistent with immunity 13.50-16.49 ?Equivocal >16.49 ? Consistent with immunity The presence of measles IgG suggests immunization or past or current infection with measles virus. For additional information, please refer to http://Showpitch.Sitestar/faq/TDP847 (This link is being provided for informational/ educational purposes only.) Mumps Antibody (IgG), Immune Status <9.00(L) AU/mL 05/11/2024 5:16 PM EST [employer] Comment: AU/mL ? Interpretation ------- ? <9.00 ? Not consistent with immunity 9.00-10.99 ?Equivocal >10.99 ?Consistent with immunity The presence of mumps IgG antibody suggests immunization or past or current infection with mumps virus. Rubella Antibody (IgG), Immune Status <0.90(L) Index 05/11/2024 5:16 PM EST [employer] Comment: ?Index ?Interpretation ?----- ?<0.90 ?Not consistent [...] MD LAB BLOOD ORDERABLES Fin al Result [facility] [address] [facility] [address] Floor, [place] [address], [employer] [facility] [address] [facility] 3rd Floor, [place] [address], * (ABNORMAL) Herpes Simplex Virus 1&2, IgG (05/11/2024 8:02 AM EST) HSV 1 IgG Type Specific Ab <0.90 index 05/11/2024 9:20 PM EST [employer] HSV 2 IgG Type Specific Ab 1.66(H) index 05/11/2024 9:20 PM EST [employer] Comment: ?Index ?Interpretation ?----- ?<0.90 ?Negative ?0.90-1.09 ?Equivocal ?>1.09 ?Positive Low HSV-2 IgG positive results (index values between 1.10-3.00) may represent false positive results. CDC 202 guidelines recommend confirmatory testing of samples with low-positive HSV-2 IgG results. If clinically indicated, consider adding on HSV-2 IgG Inhibition, by contacting [employer] Client Services. For additional information, please refer to: https://www.Youtego/healthcare- professionals/sjjsimmt-fshueuohn-lgpzem/faq/faq73 (This link is being provided for informational/ [...] screening. For additional information, please refer to http://education.Sitestar/faq/JVJ675 (This link is being provided for informational/ educational purposes only.) ?? Blood Structure of peripheral vein / Unknown Venipuncture / Unknown 05/11/2024 8:02 AM EST 05/11/2024 8:[address] [facility] - 05/11/2024 9:20 PM EST [facility] Received Date: Yunior Pérez MD LAB BLOOD ORDERABLES Fin al Result [facility] [address] [facility] [address] Floor, [place] [address], [facility] [address] [facility] 3rd Floor, [place] [address], * Protein Electrophoresis w/Reflex to Immunofixation, Serum (05/11/2024 8:02 AM EST) Pathologist [facility] Protein, Total 6.9 6.1 - 8.1 g/dL 05/11/2024 10:39 PM EST [facility] Albumin 3.8 3.8 - 4.8 g/dL 05/11/2024 10:39 PM EST [facility] [employer] [facility] Alpha 1 Globulin 0.3 0.2 - 0.3 g/dL 05/11/2024 10:39 PM EST [facility] [facility] Alpha 2 Globulin 0.6 0.5 - 0.9 g/dL 05/11/2024 10:39 PM EST [facility] [facility] Beta 1 Globulin 0.5 0.4 - 0.6 g/dL 05/11/2024 10:39 PM EST [facility] [facility] Beta 2 Globulin 0.3 0.2 - 0.5 g/dL 05/11/2024 10:39 PM EST [facility] [facility] Gamma Globulin 1.4 0.8 - 1.7 g/dL 05/11/2024 10:39 PM EST [facility] [employer] [facility] Interpretation See Comments 05/11/2024 10:39 PM EST [facility] [facility] Comment: Normal Serum Protein Electrophoresis Pattern. No abnormal protein bands (M-protein) detected. Blood Structure of peripheral vein / Unknown Venipuncture / Unknown 05/11/2024 8:02 AM EST 05/11/2024 8:14 AM EST [facility] - 05/11/2024 10:39 PM EST [facility] Received Date: Yunior Pérez MD LAB BLOOD ORDERABLES Fin al Result [address], [place] [address], [facility] [employer] [facility] [address], [place] [address], * RPR (Diagnosis) w/Reflex to Titer & TPPA Confirm (05/11/2024 8:02 AM EST) RPR W/Refl Titer NON-REACT COLLINS NON-REACT COLLINS 05/11/2024 1:09 PM EST [facility] Blood Structure of peripheral vein / Unknown Venipuncture / Unknown 05/11/2024 8:02 AM EST 05/11/2024 8:15 AM EST Narrative [facility] - 05/11/2024 1:09 PM EST [facility] Received Date:[id number] us Yunior Pérez MD LAB BLOOD ORDERABLES Fin al Result [facility] [address] [facility] [address] Floor, [place] [address], [place] [phone] [facility] [address] [facility] 3rd Floor, [place] [address], [place] [phone] * (ABNORMAL) Iron Saturation (05/11/2024 8:02 AM EST) Iron Saturation 6(L) 20 - 50 % 8:57 AM EST [employer] [facility] Iron 25(L) 45 - 160 ug/dL 05/11/2024 8:57 AM EST [employer] [facility] Transferrin 316 200 - 360 mg/dL 05/11/2024 8:57 AM EST [employer] [facility] Total Iron Binding Capacity 395 255 - 450 ug/dL 05/11/2024 8:57 AM EST [employer] [facility] Blood Structure of peripheral vein / Unknown Venipuncture / Unknown 05/11/2024 8:02 AM EST 05/11/2024 8:15 AM EST us Yunior Pérez MD LAB BLOOD ORDERABLES Fin al Result [employer] [facility] LAB[facility] [address] [place] [address], * TSH Reflex Free T4 (05/11/2024 8:02 AM EST) TSH 2.130 0.280 - 3.890 uIU/mL 05/11/2024 8:57 AM EST [employer] [facility]OLOG[facility] LAB[facility] Blood Structure of peripheral vein / Unknown Venipuncture / Unknown 05/11/2024 8:02 AM EST 05/11/2024 8:15 AM EST Yunior Pérez MD LAB BLOOD ORDERABLES Fin al Result [facility] [employer] CL[facility] LABORATORY [address] [place] [address], [place] * QuantiFERON-TB Gold Plus, 1 Tube (05/11/2024 8:02 AM EST) Pathologist [facility] QuantiFERON-TB Gold Plus NEGATIVE NEGATIVE 05/14/2024 2:04 PM EST [facility] [employer] [facility] Comment: Negative test result. M. tuberculosis complex infection unlikely. NIL 0.01 IU/mL 05/14/2024 2:04 PM EST [facility] [facility] Mitogen-NIL 9.32 IU/mL 05/14/2024 2:04 PM EST [facility] [facility] TB1-NIL 0.00 IU/mL 05/14/2024 2:04 PM EST [facility] TB2-NIL 0.01 IU/mL 05/14/2024 2:04 PM EST [employer] [facility] Comment: The Nil tube value reflects [...] T-lymphocytes. For additional information, please refer to https://education.Celsense.College Tonight/faq/EVK537 (This link is being provided for informational/ educational purposes only.) Blood Structure of peripheral vein / Unknown Venipuncture / Unknown 05/11/2024 8:02 AM EST 05/11/2024 8:10 AM EST Narrative [facility] - 05/14/2024 2:04 PM EST [facility] Received Date: Yunior Pérez MD LAB BLOOD ORDERABLES Fin al Result [facility] [address] [facility] 3rd Floor, [place] [address], [place] [phone] [facility] [employer] [facility] [address], [place] [address], [place] [phone] * (ABNORMAL) CBC Auto Differential (05/11/2024 8:02 [...] % 65.1 % 05/11/2024 8:22 AM EST [facility] Immature Grans % 0.3 0.0 - 0.9 % 05/11/2024 8:22 AM EST [facility] Lymphocyte % 19.0 % 05/11/2024 8:22 AM EST [facility] Monocyte % 12.6 % 05/11/2024 8:22 AM EST [facility] [employer] [facility] Eosinophil % 2.0 % 05/11/2024 8:22 AM EST [facility] Basophil % 1.0 % 05/11/2024 8:22 AM EST [facility] Neutrophil # 5.60 1.50 - 7.80 10*3/uL 05/11/2024 8:22 AM EST [facility] Immature Grans # 0.03 <=0.03 10*3/uL 05/11/2024 8:22 AM EST [facility] Lymphocyte # 1.60 0.85 - 3.90 10*3/uL 05/11/2024 8:22 AM EST [facility] Monocyte # 1.10(H) 0.20 - 0.95 10*3/uL 05/11/2024 8:22 AM EST [facility] Eosinophil # 0.20 0.02 - 0.50 10*3/uL 05/11/2024 8:22 AM EST [facility] Basophil # 0.10 0.00 - 0.20 10*3/uL 05/11/2024 8:22 AM EST [facility] nRBC % 0.0 /100 WBCs 05/11/2024 8:22 AM EST [facility] nRBC # <0.01 <0.01 10*3/uL 05/11/2024 8:22 AM EST [facility] Blood Structure of peripheral vein / Unknown Venipuncture / Unknown 05/11/2024 8:02 AM EST 05/11/2024 8:15 AM EST us Yunior Pérez MD LAB BLOOD ORDERABLES Fin al Result [facility] [address] [place] [address], [place] * Smooth Muscle Antibody Screen w/Reflex to Titer (05/11/2024 8:02 AM EST) Smooth Muscle AB Screen NEGATIVE NEGATIVE 05/14/2024 3:03 PM EST [employer] [facility] Comment: The specimen was negative for cytoplasmic antibodies, however additional staining was observed suggesting the presence of Antinuclear Antibodies. Consider requesting order code 249, SHELLY Screen, IFA with Reflex to Titer and Pattern, or order code [id number], SHELLY Screen, IFA w/reflex Titer/Pattern, and Reflex to Multiplex 11 Ab Bureau, if clinically indicated. Blood Structure of peripheral vein / Unknown Venipuncture / Unknown 05/11/2024 8:02 AM EST 05/11/2024 8:15 AM EST Narrative [facility] [place] - 05/14/2024 3:03 PM EST [facility] Received Date: us Yunior Pérez MD LAB BLOOD ORDERABLES Fin al Result Performing Organization Address City/[facility]/ZIP Co de Phone Number [facility] [place] [address] [facility] 3rd Floor, [place] [address], [place] [phone] [facility] 200 [facility] 3rd Floor, [place] [address], [place] [phone] * Hepatitis C Antibody w/Reflex to PCR (05/11/2024 8:02 AM EST) Hepatitis C Antibody NON-REACT COLLINS NON-REACT COLLINS 05/11/2024 11:44 AM EST [employer] [facility] Comment: HCV antibody was non-reactive. There is no laboratory evidence of HCV infection. In most cases, no further action is required. However, if recent HCV exposure is suspected, a test for HCV RNA (test code 82432) is suggested. For additional information please refer to http://Showpitch.Youtego/faq/[email or web address] (This link is being provided for informational/ educational purposes only.) Blood Structure of peripheral vein / Unknown Venipuncture / Unknown 05/11/2024 8:02 AM EST 05/11/2024 8:15 AM EST Narrative [facility] [place] - 05/11/2024 11:44 AM EST [facility] Received Date:[id number] us Yunior Pérez MD LAB BLOOD ORDERABLES Fin al Result [facility] [place] [address], [place] [address], [place] [phone] [employer] [address], [place] [address], [place] [phone] * Hepatitis A Antibody, Total (05/11/2024 8:02 AM EST) Hepatitis A Ab, Total NON-REACT COLLINS NON-REACT COLLINS 05/11/2024 11:44 AM EST [employer] [facility] Comment: For additional information, please refer to http://[email or web address].Youtego/faq/[email or web address] (This link is being provided for informational/ educational purposes only.) Blood Structure of peripheral vein / Unknown Venipuncture / Unknown 05/11/2024 8:02 AM EST 05/11/2024 8:15 AM EST Narrative [facility] [place] - 05/11/2024 11:44 AM EST [facility] Received Date:[id number] us Yunior Pérez MD LAB BLOOD ORDERABLES Fin al Result [facility] 200 [facility] 3rd Floor, [place] [address], [place] [phone] [facility] [employer] [facility] [address], [place] [address], [place] [phone] * Histoplasma Antibody Panel, CF & ID (05/11/2024 8:02 AM EST) Histoplasma capsulatum yeast phase Ab <1:8 <1:8 NA 05/17/2024 12:21 PM EST [employer] ([facility]) Histoplasma capsulatum mycelial phase Ab <1:8 <1:8 NA 05/17/2024 12:21 PM EST [employer] ([facility]) Comment: Interpretive Criteria: ?<1:8 - Antibody [...] analytical performance characteristics have been determined by [facility] [place], [place]. It has not been cleared or approved by the FDA. This assay has been validated pursuant to the CLIA regulations and is used for clinical purposes. Histoplasma capsulatum M Antibody Negative Negative 05/17/2024 12:21 PM EST [employer] ([facility]) Histoplasma capsulatum H Antibody Negative Negative 05/17/2024 12:21 PM EST [employer] ([facility]) Comment: This immunodiffusion assay is highly [...] 8:02 AM EST 05/11/2024 8:14 AM EST [facility] LITTLEJOHN (LAURA) - 05/17/2024 12:21 PM EST [facility] Received Date:[id number] Elizabeth Gonzalez MD LAB BLOOD ORDERABLES Final Res ult [facility]ITTLE[facility] ([place]UR[place]) [address] [place] [address], [place] * (ABNORMAL) SHELLY Screen, Reflex to Titer, IFA (05/11/2024 8:02 AM EST) SHELLY Screen, IFA POSITIVE (A) NEGATIVE 05/16/2024 12:00 PM EST [employer] Comment: SHELLY IFA is a first line screen for detecting the presence of up to approximately 150 autoantibodies in various autoimmune diseases. A positive SHELLY IFA result is suggestive of autoimmune disease and reflexes to titer and pattern. Further laboratory testing may be considered if clinically indicated. For additional information, please refer to http://education.Sitestar/faq/EVH683 (This link is being provided for informational/ educational purposes only.) ?? Blood Structure of peripheral vein / Unknown Venipuncture / Unknown 05/11/2024 8:02 AM EST 05/11/2024 8:15 AM EST [facility] - 05/16/2024 12:00 PM EST [facility] Received Date:[id number] Yunior Pérez MD LAB BLOOD ORDERABLES Fin al Result Performing Organization Address City/[facility]/ZIP Co de Phone Number [facility] 200 [facility] 3rd Floor, [place] [address], [employer] [facility] 200 [facility] 3rd Floor, [place] [address], [place] [phone] * Ceruloplasmin (05/11/2024 8:02 AM EST) Pathologist [facility] Ceruloplasmin 19 14 - 30 mg/dL 05/13/2024 1:07 AM EST [employer] [facility] Blood Structure of peripheral vein / Unknown Venipuncture / Unknown 05/11/2024 8:02 AM EST 05/11/2024 8:15 AM EST Narrative [facility] [place] - 05/13/2024 1:07 AM EST [facility] Received Date:[id number] us Yunior Pérez MD LAB BLOOD ORDERABLES Fin al Result Performing Organization Address City/[facility]/ZIP Co de Phone Number [facility] [place] [address] [facility] 3rd Floor, [place] [address], [place] [phone] [facility] 200 [facility] 3rd Floor, [place] [address], [place] [phone] * (ABNORMAL) Zinc (05/11/2024 8:02 AM EST) Zinc 45(L) 60 - 130 mcg/dL 05/15/2024 11:53 AM EST [facility] LITTLEJOHN ([place]UR[place]) Comment: This test was developed and its analytical performance characteristics have been determined by [facility] [place], [place]. It has not been cleared or approved by the U.S. Food and Drug Administration. This assay has been validated pursuant to the CLIA regulations and is used for clinical purposes. Blood Structure of peripheral vein / Unknown Venipuncture / Unknown 05/11/2024 8:02 AM EST 05/11/2024 8:15 AM EST [facility] POND) - 05/15/2024 11:53 AM EST [facility] Received Date:[id number] us Yunior Pérez MD LAB BLOOD ORDERABLES Fin al Result Performing Organization Address City/[facility]/ZIP Co de Phone Number [facility] ANNETTA ([place]) [address] [place], [place] , [place] * (ABNORMAL) Vitamin A (Retinol) (05/11/2024 8:02 AM EST) Vitamin A (Retinol) 15(L) 38 - 98 mcg/dL 05/14/2024 11:11 PM EST [facility] LITTLEJOHN ([place]) Comment: Vitamin supplementation within 24 hours prior to blood draw may affect the accuracy of the results. This test was developed and its analytical performance characteristics have been determined by [facility] [place] It has not been cleared or approved by the U.S. Food and Drug Administration. This assay has been validated pursuant to the CLIA regulations and is used for clinical purposes. Blood Structure of peripheral vein / Unknown Venipuncture / Unknown 05/11/2024 8:02 AM EST 05/11/2024 8:10 AM EST Narrative [facility] POND) - 05/14/2024 11:11 PM EST [facility] Received Date:[id number] Yunior Pérez MD LAB BLOOD ORDERABLES Fin al Result [facility] POND) [address] [place] [address], [place] * (ABNORMAL) AFP Tumor Marker (05/11/2024 8:02 AM EST) Pathologist [facility] Alpha Fetoprotein, Tumor Marker 7.4(H) <6.1 ng/mL 05/14/2024 1:16 PM EST [facility] [employer] [facility] Comment: This test was performed using the Bakari Paco chemiluminescent method. Values obtained from different assay methods cannot be used interchangeably. AFP levels, regardless of value, should not be interpreted as absolute evidence of the presence or absence of disease. Blood Structure of peripheral vein / Unknown Venipuncture / Unknown 05/11/2024 8:02 AM EST 05/11/2024 8:15 AM EST Narrative [facility] - 05/14/2024 1:16 PM EST [facility] Received Date:[id number] Yunior Pérez MD LAB BLOOD ORDERABLES Fin al Result Performing Organization Address City/[facility]/ZIP Co de Phone Number [facility] [place] [address] [facility] 3rd Floor, [place] [address], [place] [phone] [facility] [employer] [facility] 200 [facility] 3rd Floor, [place] [address], [place] [phone] * (ABNORMAL) Nikhil-Richardson Virus VCA, IgG (05/11/2024 8:02 AM EST) EBV Viral Capsid Ag Ab (IGG) >750.00(H ) U/mL 05/11/2024 5:16 PM EST [employer] Comment: ? U/mL ? Interpretation ? ---- ? <18.00 ? Negative ? 18.00-21.99 ?Equivocal ? >21.99 ? Positive Blood Structure of peripheral vein / Unknown Venipuncture / Unknown 05/11/2024 8:02 AM EST 05/11/2024 8:[address] [facility] - 05/11/2024 5:16 PM EST [facility] Received Date: Yunior Pérez MD LAB BLOOD ORDERABLES Fin al Result [facility] [place] 200 [facility] 3rd Floor, [place] [address], [place] [phone] [employer] [facility] [address], [place] [address], * Hepatitis B Core Antibody, Total (05/11/2024 8:02 AM EST) Hepatitis B Core Ab Total NON-REACT COLLINS NON-REACT COLLINS 05/11/2024 11:44 AM EST [employer] Comment: For additional information, please refer to http://education.Youtego/faq/OMP196 (This link is being provided for informational/ educational purposes only.) Blood Structure of peripheral vein / Unknown Venipuncture / Unknown 05/11/2024 8:02 AM EST 05/11/2024 8:15 AM EST Narrative [facility] [place] - 05/11/2024 11:44 AM EST [facility] Received Date:[id number] us Yunior Pérez MD LAB BLOOD ORDERABLES Fin al Result [facility] [place] 200 [facility] 3rd Floor, [place] [address], [employer] [facility] [address] [facility] 3rd Floor, [place] [address], * (ABNORMAL) Vitamin D, 25-Hydroxy, Total, Immunoassay (05/11/2024 8:02 AM EST) [facility] Calcidiol+ercalc idiol 13(L) 30 - 100 ng/mL 05/11/2024 11:52 AM EST [employer] Comment: Vitamin D Status ? 25-OH Vitamin D: Deficiency: ?<20 ng/mL Insufficiency: ? 20 - 29 ng/mL Optimal: ? > or = 30 ng/mL For 25-OH Vitamin D testing on patients on D2-supplementation and patients for whom quantitation of D2 and D3 fractions is required, the QuestAssureD() 25-OH VIT D, (D2,D3), LC/MS/MS is recommended: order code [id number] (patients >2yrs). See Note 1 Note 1 For additional information, please refer to http://education.DUHEM.College Tonight/faq/WYU025 (This link is being provided for informational/ educational purposes only.) Blood Structure of peripheral vein / Unknown Venipuncture / Unknown 05/11/2024 8:02 AM EST 05/11/2024 8:15 AM EST Narrative [facility] [place] - 05/11/2024 11:52 AM EST [facility] Received Date:[id number] us Yunior Pérez MD LAB BLOOD ORDERABLES Fin al Result Performing Organization Address City/[facility]/ZIP Co de Phone Number [facility]LY IZQUIERDO [address], [place] [address], [facility] [employer] [facility] [address], [place] [address], * Mitochondrial Antibody w/Reflex (05/11/2024 8:02 AM EST) [facility] Mitochondrial Ab Screen NEGATIVE NEGATIVE 05/14/2024 3:03 PM EST [employer] [facility] Comment: The specimen was negative for cytoplasmic antibodies, however additional staining was observed suggesting the presence of Antinuclear Antibodies. Consider requesting order code 249, SHELLY Screen, IFA with Reflex to Titer and Pattern, or order code [id number], SHELLY Screen, IFA w/reflex Titer/Pattern, and Reflex to Multiplex 11 Ab Bureau, if clinically indicated. Blood Structure of peripheral vein / Unknown Venipuncture / Unknown 05/11/2024 8:02 AM EST 05/11/2024 8:13 AM EST Narrative [facility] - 05/14/2024 3:03 PM EST [facility] Received Date: us Yunior Pérez MD LAB BLOOD ORDERABLES Fin al Result Performing Organization Address City/[facility] Co de Phone Number [facility]LY IZQUIERDO [address], [place] [address], [facility] [employer] [facility] [address], [place] [address], * Toxoplasma gondii Antibody, IgG (05/11/2024 8:02 AM EST) [facility] Toxoplasma Ab IgG <7.20 IU/mL 05/11/2024 9:20 PM EST [employer] [facility] Comment: ? IU/mL ?Interpretation ? ------ ? <7.20 ?Negative ? 7.20-8.79 ?Equivocal ? >8.79 ?Positive Blood Structure of peripheral vein / Unknown Venipuncture / Unknown 05/11/2024 8:02 AM EST 05/11/2024 8:13 AM EST Narrative [facility] - 05/11/2024 9:20 PM EST [facility] Received Date: us Yunior Pérez MD LAB BLOOD ORDERABLES Fin al Result Performing Organization Address [facility] de Phone Number KIMBERLY [address], [place] [address], [employer] [address], [place] [address], * (ABNORMAL) Hepatitis B Surface Antibody (05/11/2024 8:02 AM EST) Hepatitis B Surface Ab Immunity, Qn <5(L) > OR = 10 mIU/mL 05/11/2024 11:44 AM EST [employer] Comment: PATIENT DOES NOT HAVE IMMUNITY TO HEPATITIS B VIRUS. For additional information, please refer to http://education.Youtego/faq/KIP511 (This link is being provided for informational/ educational purposes only). Blood Structure of peripheral vein / Unknown Venipuncture / Unknown 05/11/2024 8:02 AM EST 05/11/2024 8:15 AM EST Narrative [employer] [facility] - 05/11/2024 11:44 AM EST [facility] Received Date:[id number] us Yunior Pérez MD LAB BLOOD ORDERABLES Fin al Result Performing Organization Address [facility] Co de Phone Number [facility] [place] [address], [place] [address], [facility] [employer] [facility] [address], [place] [address], * Hepatitis B Surface Antigen w/Confirmation (05/11/2024 8:02 AM EST) Hepatitis B Surface Antigen NON-REACT COLLINS NON-REACT COLLINS 05/11/2024 11:44 AM EST [employer] Comment: For additional information, please refer to http://education.Youtego/faq/GHL164 (This link is being provided for informational/ educational purposes only.) Blood Structure of peripheral vein / Unknown Venipuncture / Unknown 05/11/2024 8:02 AM EST 05/11/2024 8:15 AM EST Narrative [facility] - 05/11/2024 11:44 AM EST [facility] Received Date: Yunior Pérez MD LAB BLOOD ORDERABLES Fin al Result [facility] [place] [address], [place] [address], [employer] [facility] [address], [place] [address], * (ABNORMAL) Cytomegalovirus Antibody, IgG (05/11/2024 8:02 AM EST) Pathologist [facility] Cytomegalovirus Antibody (IgG) 6.00(H) U/mL 05/12/2024 4:15 AM EST [employer] Comment: ? U/mL ? Interpretation ? ----- ? <0.60 ? Negative ? 0.60-0.69 ? Equivocal ? > or = 0.70 ?? Positive A positive result indicates that the patient has antibody to CMV. It does not differentiate between an active or past infection. Blood Structure of peripheral vein / Unknown Venipuncture / Unknown 05/11/2024 8:02 AM EST 05/11/2024 8:15 AM EST Narrative [facility] [place] - 05/12/2024 4:15 AM EST [facility] Received Date:[id number] us Yunior Pérez MD LAB BLOOD ORDERABLES Fin al Result Performing Organization Address [facility]/State/[facility] Co de Phone Number [facility] 200 [facility] 3rd Floor, [place] [address], [facility] [address], [place] [address], [place] [phone] * (ABNORMAL) PTT (05/11/2024 8:02 AM EST) aPTT 33.2(H) 23.0 - 32.0 Seconds 05/11/2024 9:04 AM EST [facility] Comment: Current PTT reagent is not sensitive to detect all Lupus Anticoagulant (LA) Inhibitor Cases. ?? If a LA is suspected, please order a Lupus Anticoagulation w/ Reflex Test which is performed at [facility] in [place], [place]. Blood Structure of peripheral vein / Unknown Venipuncture / Unknown 05/11/2024 8:02 AM EST 05/11/2024 8:13 AM EST us Yunior Pérez MD LAB BLOOD ORDERABLES Fin al Result Performing Organization Address [facility] Co de Phone Number [facility] [address] [place] [address], * Protime-INR (05/11/2024 8:02 AM EST) PT 11.9 9.6 - 12.4 Seconds 05/11/2024 9:04 AM EST [facility] INR 1.1 0.9 - 1.1 05/11/2024 9:04 AM EST [facility] Comment:The optimal therapeu tic INR range for patients treated with Vitamin K antagonists (VKAS, e.g., Warfarin) is 2.0 to 3.5. Discuss the desired range with your doctor/care team. Blood Structure of peripheral vein / Unknown Venipuncture / Unknown 05/11/2024 8:02 AM EST 05/11/2024 8:13 AM EST Yunior Pérez MD LAB BLOOD ORDERABLES Fin al Result Performing Organization Address [facility] de Phone Number [employer] [facility] [address] [place] [address], * Type and Screen (05/11/2024 8:02 AM [...] Result - Final [facility]LOOD [facility]ANK INF[facility] [address] [place] [address], * Varicella Zoster Antibody, IgG (05/11/2024 8:02 AM EST) Varicella Zoster Virus Antibody 2.40 S/CO 05/11/2024 5:07 PM EST [facility] Comment: ?Signal to Cut-off ? S/CO ?Interpretation [...] EST 05/11/2024 8:13 AM EST Narrative [facility] [place] - 05/11/2024 5:07 PM EST [facility] Received Date:[id number] Yunior Pérez MD LAB BLOOD ORDERABLES Fin al Result [facility] [address] [place] [address] 3rd Floor, [place] [address], [place] [phone] [employer] [address]rd Floor, [place] [address], [place] [phone] * PSA (05/11/2024 8:02 AM EST) PSA 0.04 <=4.00 ng/mL 05/11/2024 8:53 AM EST [facility] Comment: The total PSA [...] MD LAB BLOOD ORDERABLES Fin al Result [facility] [address] [place] [address], [place] * Phosphorus (05/11/2024 8:02 AM EST) Phosphorus 3.2 2.5 - 4.5 mg/dL 05/11/2024 8:57 AM EST [facility] [facility] Blood Structure of peripheral vein / Unknown Venipuncture / Unknown 05/11/2024 8:02 AM EST 05/11/2024 8:15 AM EST us Yunior Pérez MD LAB BLOOD ORDERABLES Fin al Result [facility] [address] [place] [address], [place] * Magnesium (05/11/2024 8:02 AM EST) MG 1.9 1.6 - 2.4 mg/dL 05/11/2024 8:57 AM EST [facility] [facility] Blood Structure of peripheral vein / Unknown Venipuncture / Unknown 05/11/2024 8:02 AM EST 05/11/2024 8:15 AM EST Yunior Pérez MD LAB BLOOD ORDERABLES Fin al Result [facility] [address] [place] [address], * Hemoglobin A1c (05/11/2024 8:02 AM EST) Hemoglobin A1C 4.7 <5.7 % of total Hgb 05/12/2024 10:03 AM EST [facility] Comment: For the purpose of screening for the presence of diabetes: <5.7% ? Consistent with the absence of diabetes 5.7-6.4% ?Consistent with increased risk for diabetes ?(prediabetes) > or =6.5% ??Consistent with diabetes This assay result is consistent with a decreased risk of diabetes. Currently, no consensus exists regarding use of hemoglobin A1c for diagnosis of diabetes in children. According to [place] Diabetes Association (ADA) guidelines, hemoglobin A1c <7.0% represents optimal control in non- diabetic patients. Different metrics may apply to specific patient populations. Standards of Medical Care in Diabetes(ADA). ?? eAG (MG/DL) 88 mg/dL 05/12/2024 10:03 AM EST [facility] eAG (MMOL/L) 4.9 mmol/L 05/12/2024 10:03 AM [employer] Blood Structure of peripheral vein / Unknown Venipuncture / Unknown 05/11/2024 8:02 AM EST 05/11/2024 8:15 AM EST Narrative [facility] [place] - 05/12/2024 10:03 AM EST [facility] Received Date:[id number] Yunior Pérez MD LAB BLOOD ORDERABLES Fin al Result [facility] [place] 200 [facility] 3rd Floor, [place] [address], [place] [phone] [facility] 200 [facility] 3rd Floor, [place] [address], [place] [phone] * Ferritin (05/11/2024 8:02 AM EST) Ferritin 44.9 23.0 - 336.0 ng/mL 05/11/2024 8:57 AM EST [facility] Blood Structure of peripheral vein / Unknown Venipuncture / Unknown 05/11/2024 8:02 AM EST 05/11/2024 8:15 AM EST us Yunior Pérez MD LAB BLOOD ORDERABLES Fin al Result Performing Organization Address City/[facility]/ZIP Co de Phone Number [facility] [address] [place] [address], [place] * (ABNORMAL) Bilirubin, Direct (05/11/2024 8:02 AM EST) Bilirubin, Direct 0.8(H) <=0.4 mg/dL 05/11/2024 8:57 AM EST [facility] Blood Structure of peripheral vein / Unknown Venipuncture / Unknown 05/11/2024 8:02 AM EST 05/11/2024 8:15 AM EST Yunior Pérez MD LAB BLOOD ORDERABLES Fin al Result [facility] [address] [place] [address], [place] * Ethanol (05/11/2024 8:02 AM EST) Ethanol <10 <10 mg/dL 05/11/2024 8:53 AM EST [facility] Blood Structure of peripheral vein / Unknown Venipuncture / Unknown 05/11/2024 8:02 AM EST 05/11/2024 8:11 AM EST Yunior Pérez MD LAB BLOOD ORDERABLES Fin al Result [facility] [address] [place] [address], * (ABNORMAL) Lipid panel (05/11/2024 8:02 AM EST) Cholesterol 142 <=199 mg/dL 05/11/2024 8:57 AM EST [facility] Triglycerides 82 <=149 mg/dL 05/11/2024 8:57 AM EST [facility] Cholesterol, HDL 71(H) 40 - 59 mg/dL 05/11/2024 8:57 AM EST [facility] Cholesterol, Non-HDL 71 mg/dL 05/11/2024 8:57 AM EST [facility] LDL Cholesterol 55 <100 mg/dL 05/11/2024 8:57 AM EST [facility] VLDL 16.4 mg/dL 05/11/2024 8:57 AM EST [facility] Cholesterol/HDL Ratio 2.0 <5.0 05/11/2024 8:57 AM EST [facility] Blood Structure of peripheral vein / Unknown Venipuncture / Unknown 05/11/2024 8:02 AM EST 05/11/2024 8:15 AM EST Narrative [facility] - 05/11/2024 8:57 AM [...] MD LAB BLOOD ORDERABLES Fin al Result [facility] [address] [place] [address], * (ABNORMAL) Comprehensive Metabolic Panel (05/11/2024 8:02 [...] 5 - 15 05/11/2024 8:57 AM EST [facility] Glucose 105(H) 65 - 99 mg/dL 05/11/2024 8:57 AM EST [facility] [facility] Creatinine 1.16 0.60 - 1.30 mg/dL 05/11/2024 8:57 AM EST [facility] Calcium 9.1 8.6 - 10.5 mg/dL 05/11/2024 8:57 AM EST [facility] Total Protein 7.1 6.0 - 8.0 g/dL 05/11/2024 8:57 AM EST [facility] Albumin 3.8 3.5 - 5.2 g/dL 05/11/2024 8:57 AM EST [facility] Bilirubin, Total 1.5(H) 0.2 - 1.2 mg/dL 05/11/2024 8:57 AM EST [facility] Alkaline Phosphatase 165(H) 35 - 129 U/L 05/11/2024 8:57 AM EST [facility] AST 23 10 - 40 U/L 05/11/2024 8:57 AM EST [facility] ALT 11 10 - 40 U/L 05/11/2024 8:57 AM EST [facility] BUN 16 7 - 23 mg/dL 05/11/2024 8:57 AM EST [facility] eGFR 74 >=60 mL/min/1. 73m2 05/11/2024 8:57 AM EST [facility] Comment:The estimated glomer ular [...] - 4.2 g/dL 05/11/2024 8:57 AM EST [facility] A/G Ratio 1.2(L) 1.5 - 3.0 05/11/2024 8:57 AM EST [facility] Blood Structure of peripheral vein / Unknown Venipuncture / Unknown 05/11/2024 8:02 AM EST 05/11/2024 8:15 AM EST us Yunior Pérez MD LAB BLOOD ORDERABLES Fin al Result Performing Organization Address City/[facility]/ZIP Co de Phone Number [facility] [address] [place] [address], * LIVER PRE EXTERNAL PANEL (04/16/2024) Sodium [...] Payer (Ef fective 2024-Present) Name:Tho Miller Member ID:[id number] Relation to Subscriber:Self Name:Tho Miller Subscriber ID:[id number] Payer ID:[id number] Group ID:Not on file Type:Not on file Address: [address] MEDICARE Advance Directives Documents on File Type Date Recorded Patient Quality Control Coordinator [facility] Health Care Proxy 05/15/2024 3:29 PM 05-11 Care Teams Flying Shear Operator Relationship Specialty Start Date End Date Gulshan Chanel [address] [place] [address] PCP - General 04/17/24
--- OUTSIDE RECORDS SUMMARY | 2024-05-31 19:08 | XMS_ITS | Encounter Summary ---
Author Organization [facility] Address [address] [place] [address] Care Team Providers Care Taxi Servicer Name Role Phone Gulshan Chanel Primary Care Provider [phone] Encounter Details Date Type Department Care Team (Late st Contact Info) Description 05/08/2024 Telephone [facility] Transplant Department [address] [place] [address] Angela Weaver RN Social History Tobacco Use [...] Info) Description 06/11/2024 10:30 AM EDT Follow-Up [facility] [address] [place] [id number] Nathan Ortiz MD [address] [place] [phone] 06/11/2024 11:00 AM EDT Clinical Support [facility] [address] [place] [phone] documented as of this encounter Visit Diagnoses Not on filedocumented in this encounter Care Teams Taxi Servicer Relationship Specialty Start Date End Date Gulshan Chanel [address] [place] [address] PCP - General 04/17/24 documented as of this encounter
== END 2024-05-31 16:43 | disposition home or self-care (01) ==
LOC: HO.HMCC 15:37
PROVIDERS: PCP Nurse Practitioner Family; Visit Provider Nurse Practitioner Family
DX: F17.200 Nicotine dependence, unspecified, uncomplicated (principal); R53.1 Weakness; M54.9 Dorsalgia, unspecified; G89.29 Other chronic pain; R20.2 Paresthesia of skin; M79.601 Pain in right arm; M79.602 Pain in left arm; G54.9 Nerve root and plexus disorder, unspecified; F10.10 Alcohol abuse, uncomplicated

== ENCOUNTER → 2024-05-31 15:36 | Outpatient (BNVA) | payer MEDICARE, MEDICAID, SELFPAY | PROVIDERS: PCP Nurse Practitioner Family; Visit Provider Nurse Practitioner Family | DX: R53.1 Weakness (principal); M54.9 Dorsalgia, unspecified; G89.29 Other chronic pain; R20.2 Paresthesia of skin; M79.601 Pain in right arm; M79.602 Pain in left arm; G54.9 Nerve root and plexus disorder, unspecified; F10.10 Alcohol abuse, uncomplicated; F17.200 Nicotine dependence, unspecified, uncomplicated; Z71.6 Tobacco abuse counseling | CPT/HCPCS: 96127; 99212 ==

== ENCOUNTER 2024-06-08 09:48 | Outpatient (AMB) | payer MEDICARE, MEDICAID, SELFPAY ==
--- NOTE | 2024-06-08 09:58 | A.SPINEOV_ITS ---
Intake Visit Reasons: discuss sx Intake Note: Mr. Miller is here today to Discuss surgery. [employer] Required: No Allergies No Known Allergies Allergy (Verified 06/08/24 09:58) Assessment & Plan Assessment & Plan (1) Alcohol abuse: Code(s): F10.10 - Alcohol abuse, uncomplicated Category: Medical (2) Chronic back pain: Code(s): M54.9 - Dorsalgia, unspecified; G89.29 - Other chronic pain Category: Medical Plan Mr Miller came back in today for follow-up. He saw Dr. Sawant in 2022 and was being considered for L5-S1 trans K[place]in interbody fusion. He could not explain to me exactly why he was not here in follow-up. He does not really understand what he never had the surgery. He has been in a lot of pain and has been waiting for years for his surgery. He was unable to provide me with any updated medical information since his last visit. He did tell me that he has developed a ?little bit of cirrhosis?. Other than that he said he is in good shape and waiting for his procedure to be done. He has chronic daily low back pain that radiates down his left leg amongst multiple other pains. He also has alcoholic polyneuropathy which gives him pain from his toes up to his mid calf and from his fingertips up to his mid forearm. In terms of his drug use situation, it looks like he did abstain from alcohol, was in rehab for a number of months and has been sober from alcohol. He is not following up with alcoholics anonymous however, and continues to smoke marijuana fairly regularly. According to the records in his chart, he has end-stage liver disease in his be considered for liver transplant. He is able to stand up out of a chair, walks with a slightly unsteady gait, positive Romberg test. He could not do tandem gait walking. Gross motor strength is normal. No hyperreflexia, in fact reflexes diminished. He still has degenerative disc disease at L5-S1 on his lumbar MRI done at [facility] just a few months ago. I would describe it as moderate degenerative disc disease with moderate foraminal stenosis. From the standpoint of surgery unfortunately, it looks like metabolically he is in a very tenuous situation. Also, he does not seem to comprehend what is going on and was unable to articulate any of the details about his potential liver transplant, just believing he had a little bit of cirrhosis. I am concerned that he is not medically fit for surgery. I will review the case with Dr. Sawant but I think it is doubtful he will put him under anesthesia unless there has been some big turn around in his medical condition that I am missing. He also very likely has poor bone quality as well making him high risk for not only anesthesia related complications, but surgical hardware failure and complications. I will contact Gulshan humphrey NP who is his primary care provider just to make sure I am not missing something because the patient seemed to adamant that he is in good shape and should be allowed to have the surgery. Total amount of time spent in this visit was 20 minutes in discussion of symptoms, lumbar MRI imaging results at [facility] and subsequent plan of care Bonilla Sawant MD,PhD [facility] Coding Level of Care Code Est Pt Level 3 (96473) Diagnoses Alcohol abuse F10.10 Chronic back pain M54.9; G89.29
--- OUTSIDE RECORDS SUMMARY | 2024-06-08 11:21 | XMS_ITS | Clinical Summary ---
Author Organization [facility] Address [address] [place] [address] Care Team Providers Care Methods Time Analyst Name Role Phone Gulshan Chanel Primary Care Provider Allergies No known active [...] extended release Take by mouth. 4 Active pfwqqas-HVQM-nkx-v smpf-qqau-yn 0.77-48-213-200 mg capsule 5 mg. 4 Active magnesium oxide 250 mg magnesium tablet Take 250 mg by mouth once a day. 5 Active thiamine HCl (VITAMIN B1) 100 mg tablet Take 100 mg by mouth once a day. 5 Active food supplemt, lactose-reduced (Boost Plus) 0.06 gram- 1.5 kcal/mL liquidIndications: Hepatic cirrhosis, unspecified hepatic cirrhosis type, unspecified whether ascites present (HCC),Moderate protein-calorie malnutrition (HCC) Take 1 Bottle by mouth 2 (two) times a day. 66199 mL 3 5 Active vitamin A 3,000 [...] Date Cirrhosis of liver 05/11/2024 Portal hypertension 05/11/2024 Secondary esophageal varices without bleeding Moderate protein-calorie malnutrition 05/11/2024 Alcohol use disorder, severe, in sustained remis chiqui 05/11/2024 Encounter for pre-transplant evaluation for chronic liver disease 05/11/2024 Encounters Date Type Department Care Team Description 06/06/2024 Orders Only [facility] Transplant Department [address] [place] [address] [phone] Angela Weaver, LUDY Alcoholic cirrhosis of liver with ascites (Primary Dx); Awaiting organ transplant 05/24/2024 Telephone [facility] Transplant Department [address] [place] [address] [phone] Angela Weaver, LUDY 05/18/2024 Orders Only [facility] Transplant Department [address] [place] [address] [phone] Angela Weaver, LUDY Encounter for pre-transplant evaluation for liver transplant (Primary Dx) 05/16/2024 Orders Only [facility] Transplant Department [address] [place] [address] 90098 Angela Weaver, RN Alcoholic cirrhosis of liver with ascites (Primary Dx) 05/16/2024 Telephone [facility] Gastroenterology Clinic [address] [place] [address] [phone] Linoleum Printer: Yunior Bravo MD 05/16/2024 Results Follow-Up [facility] Liver Transplant Services [address] [place] [address] [phone] Angela Weaver RN 05/16/2024 Telephone [facility] Transplant Department [address] [place] [address] 55644 Angela Weaver, LUDY 05/15/2024 Results Follow-Up [facility] Liver Transplant Services [address] [place] [address] 74694 Angela Weaver RN 05/11/2024 3:15 PM EST Office Visit [facility] Transplant Services [address] [place] [address] [phone] Kash Ramirez MD PhD Alcoholic cirrhosis of liver with ascites (Primary Dx); Portal hypertension; Moderate protein-calorie malnutrition; Secondary esophageal varices without bleeding 05/11/2024 2:30 PM EST Office Visit [facility] Liver Transplant Services [address] [place] [address] 16285 Preeti Mcdaniel MD Co, Elizabeth Hartmann MD Special screening examination for infectious diseases (Primary Dx); Encounter for pre-transplant evaluation for liver transplant; Cytomegalovirus infection, unspecified cytomegaloviral infection type 05/11/2024 1:45 PM EST Nutrition [facility]plant [facility] [address] [place] [address] Encounter for pre-transplant evaluation for liver transplant (Primary Dx) 05/11/2024 1:00 PM EST Office Visit [facility] Transplant [facility] [address] [place] [address] 37043 Nathan Ortiz MD Encounter for pre-transplant evaluation for chronic liver disease (Primary Dx) 05/11/2024 12:15 PM EST Social Work [facility] Transplant [facility] [address] [place] [address] 20180 CandisPjchapito Radha crane [facility] 05/11/2024 11:45 AM EST Office Visit [facility] Liver Transplant Services [address] [place] [address] Evelyn Barr RN Awaiting organ transplant (Primary Dx) 05/11/2024 10:28 AM EST - 05/11/2024 11:59 PM EST Hospital Encounter [facility] CT Scan [address] [place] [address] Yunior Pérez MD Discharge Disposition: Home or Self Care () 05/11/2024 8:35 AM EST - 05/11/2024 10:27 AM EST Hospital Encounter [facility] ACC Building Cardiac Ultrasound [address] [place] [address] Yunior Pérez MD Discharge Disposition: Home or Self Care () 05/11/2024 Refill [facility] Transplant Department [address] [place] [address] 43710 Olivier, Alena Hepatic cirrhosis, unspecified hepatic cirrhosis type, unspecified whether ascites present (Primary Dx); Moderate protein-calorie malnutrition 05/09/2024 Telephone [facility] Transplant Department [address] [place] [address] 61790 Angela Weaver, RN 05/08/2024 Telephone [facility] Transplant Department [address] [place] [address] 71188 Angela Weaver, RN 05/01/2024 Telephone [facility] Transplant Department [address] [place] [address] 32539 Angela Weaver, RN 04/18/2024 Orders Only [facility] Transplant Department [address] [place] [address] Angela Weaver, LUDY Encounter for pre-transplant evaluation for liver transplant (Primary Dx) 04/17/2024 1:00 PM EST Office Visit [facility] Liver Transplant Services [address] [place] [address] 65148 Yunior Pérez MD Encounter for pre-transplant evaluation for liver transplant (Primary Dx) 04/17/2024 12:00 PM EST Evaluation [facility] Transplant [facility] [address] [place] [address] 30528 Angela Weaver RN Encounter for pre-transplant evaluation for liver transplant (Primary Dx) 04/17/2024 Orders Only [facility] Nuclear Medicine [address] [place] [address] 24691 Nurys Rutherford MD 04/17/2024 Abstract [facility] Transplant Department [address] [place] [address] 73686 Yunior Pérez MD 04/12/2024 Documentation [facility] Transplant Department [address] [place] [address] 69811 Shaka-MacPhers on, Radha FSolitario, FARM OPERATIONS TECHNICAL DIRECTOR Transportation 04/11/2024 Orders Only [facility] Transplant Department [address] [place] [address] 34626 Angela Weaver, LUDY Encounter for pre-transplant evaluation for liver transplant (Primary Dx) 04/06/2024 Telephone [facility] Transplant Department [address] [place] [address] 68416 Angela Weaver, LUDY 04/05/2024 Telephone [facility] Transplant Department [address] [place] [address] 63777 Mercer-MacPhers on, Radha F., FARM OPERATIONS TECHNICAL DIRECTOR professor of social work 03/30/2024 Telephone [facility] Transplant Department [address] [place] [address] 84419 Radha Higginbotham, FARM OPERATIONS TECHNICAL DIRECTOR Transportation 03/29/2024 Telephone [facility] Transplant Department [address] [place] [address] 01513 Angela Weaver RN 03/29/2024 Documentation [facility] Transplant Department [address] [place] [address] 06763 Radha Higginbotham, FARM OPERATIONS TECHNICAL DIRECTOR Transportation 03/16/2024 Orders Only [facility] Transplant Department [address] [place] [address] 14061 Provider, MD Timothy 03/15/2024 Orders Only [facility] Transplant Department [address] [place] [address] [phone] Provider, MD Timothy from Last 3 Months [...] Follow-Up [facility] Liver Transplant Services [address] [place] [address] Nathan Ortiz MD [address] [place] [address] 06/11/2024 11:00 AM EDT Clinical Support [facility] Transplant [facility] [address] [place] [address] 52450 Health Maintenance Due Date Last Done Comments Cologuard 1969 Colon Cancer Screening 1969 Colonoscopy 1969 FOBT / Fit Test 1969 Sigmoidoscopy 1969 Medicare AWV 1970 Hepatitis B Vaccines (1 of 3 - 19+ 3-dose series) 04/1988 Pneumococcal Vaccine: 50+ Years (1 of 2 - PCV) 989 COVID-19 Vaccine ( - season) 2023 Influenza Vaccine (#1) 2023 02/12/2023 Alcohol/Substance Use Screening 03/21/2024 Depression Screening and Follow-Up 03/21/2024 Social Drivers of Health Annual Screening 03/21/2024 Zoster Vaccines (2 of 2) 07/24/2024 05/29/2024 CT Lung Cancer Screening (Baseline) 05/11/202505/11 DTaP,Tdap,and Td Vaccines (2 - Td or Tdap) 05/29/2034 05/29/2024 RSV Vaccine (60+ years old a nd patients) (1 - 1-dose 75+ series) 2044 HIV Screening Completed 05/11/2024 Hepatitis C Screening Completed 05/11/2024 Procedures * Due to [place] state law, [...] Encounter for pre-transplant evaluation for liver transplant OIJRP-5-UPHPVJYXXAB (AAT) PHENOTYPE Routine 05/11/2024 8:02 AM EST [...] CYSTATIN C WITH GLOMERULAR FILTRATION RATE, ESTIMATED (EGFR)-[id number] Routine 05/11/2024 8:02 AM EST Encounter for [...] for pre-transplant evaluation for liver transplant PHOSPHATIDYLETHANOL-ARU [id number] Routine 05/11/2024 8:02 AM EST Encounter for [...] for liver transplant QUANTIFERON-TB GOLD PLUS, 1 [id number] Routine 05/11/2024 8:02 AM EST Encounter for pre-transplant evaluation for liver transplant RPR (DIAGNOSIS) W/REFLEX TO TITER & TPPA [id number] Routine 05/11/2024 8:02 AM EST Encounter for [...] for pre-transplant evaluation for liver transplant ZINC, PLASMA/BIUGU-[id number] Routine 05/11/2024 8:02 AM EST Encounter for [...] obtain the completed interpretation. ? Workstation ID: [id number] Up-to-date CT equipment and radiation dose reduction techniques were employed. CTDIvol: 3.0 - 14.6 mGy. DLP: 1699 mGy-cm. ??The following accession numbers are related to this dose report [id number]: [id number] Narrative 05/14/2024 7:59 PM EST EXAMINATION: CT [...] image 107 series 10. Resulting Agency Comment [id number] Procedure Note Christen Aviles MD - 05/14/2024 [...] 3. Cholelithiasis and choledocholithiasis. Punctate calculus seen ferjj724 series 4 within the distal CBD. Can [...] possible to obtain thecompleted interpretation. Workstation ID: [id number] Up-to-date CT equipment and radiation dose reduction techniques wereemployed. CTDIvol: 3.0 - 14.6 mGy. DLP: 1699 mGy-cm. The followingaccession numbers are related to this dose report [id number]: [id number] Yunior Pérez MD IM CT PROCEDURES Final [...] obtain the completed interpretation. ? Workstation ID: [id number] Up-to-date CT equipment and radiation dose reduction techniques were employed. CTDIvol: 3.0 - 14.6 mGy. DLP: 1699 mGy-cm. ??The following accession numbers are related to this dose report [id number]: [id number] Narrative 05/17/2024 4:11 PM EST Indication: ??pre [...] vertebral disease. Bilateral gynecomastia. Resulting Agency Comment [id number] Procedure Note Sidney Delatorre MD PhD - [...] possible to obtain thecompleted interpretation. Workstation ID: [id number] Up-to-date CT equipment and radiation dose reduction techniques wereemployed. CTDIvol: 3.0 - 14.6 mGy. DLP: 1699 mGy-cm. The followingaccession numbers are related to this dose report [id number]: [id number] Yunior Pérez MD [facility] CT PROCEDURES Final Result * TRANSTHORACIC ECHO [...] 1.85 RIGHT ATRIAL PRESSURE 3 mmHg [facility] RV TISSUE DOPPLER S' 12.0 [...] Doppler. Myocardial deformation imaging was performed using [employer]. During the study the apical, parasternal, subcostal and suprasternal view was captured. Overall the study quality was adequate. Prior Study No prior study available for comparison. STRESS ECHO OVERALL FINDINGS Normal RV size and systolic function. No significant valvular disease identified. us Yunior Pérez MD CV ECHO PROCEDURES Final Result * Comprehensive Drug Panel, Urine (05/11/2024 8:11 AM EST) [facility] Comprehensive Drug Screen Urine DRUGS DETECTED 05/11/2024 2:55 PM EST [employer] [facility] Comment: NICOTINE GABAPENTIN COTININE CAFFEINE TRAMADOL AND METABOLITE Urine Voided urine specimen / Unknown Non-Blood Collection / Unknown 05/11/2024 8:11 AM EST 05/11/2024 8:16 AM EST Narrative [facility] 05/11/2024 2:55 PM EST [facility] Received Date: us Yunior Pérez MD LAB URINE ORDERABLES Fin al Result [facility] [address], [place] [address], [place] [phone] [employer] [facility] [address], [place] [address], [place] [phone] * (ABNORMAL) Cystatin C with Glomerular Filtration Rate, Estimated (eGFR) (05/11/2024 8:02 AM EST) Cystatin C 1.39(H) 0.52 - 1.23 mg/L 05/17/2024 12:21 PM EST [facility] ([place]) eGFR Non- 51(L) >=60 NA 05/17/2024 12:21 PM EST [facility] ([place]) Comment: ?REFERENCE RANGE:>=60 mL/min/1.73mE2 ? Blood Structure of peripheral vein / Unknown Venipuncture / Unknown 05/11/2024 8:02 AM EST 05/11/2024 8:14 AM EST Narrative [facility] ([place]) - 05/17/2024 12:21 PM EST [facility] Received Date: Yunior Pérez MD LAB BLOOD ORDERABLES King ben Result - Final [facility]) [address] [place], [place] , [place] * (ABNORMAL) SHELLY, Titer and Pattern (05/11/2024 8:02 AM EST) SHELLY Titer 1 1:320(H) titer 05/16/2024 12:01 PM EST [email or web address] Comment: ?Reference Range ?<1:40 ?Negative ?1:40-1:80 ?Low Antibody Level ?>1:80 ?Elevated Antibody Level SHELLY Pattern 1 Nuclear, Homogeneo us(A) 05/16/2024 12:01 PM EST [email or web address] Comment: Homogeneous pattern is associated with systemic lupus erythematosus (SLE), drug-induced lupus and juvenile idiopathic arthritis. AC-1: Homogeneous International Consensus on SHELLY Patterns (https://doi.org/10.1515/sxmd-1179-0117) SHELLY Titer 2 1:320(H) titer 05/16/2024 12:01 PM EST [email or web address] Comment: ?Reference Range ?<1:40 ?Negative ?1:40-1:80 ?Low Antibody Level ?>1:80 ?Elevated Antibody Level SHELLY Pattern 2 Nuclear, Speckled( A) 05/16/2024 12:01 PM EST [email or web address] Comment: Speckled pattern is associated with mixed connective tissue disease (MCTD), systemic lupus erythematosus (SLE), Sjogren's syndrome, dermatomyositis, and systemic sclerosis/polymyositis overlap. AC-2,4,5,29: Speckled International Consensus on SHELLY Patterns (https://doi.org/10.1515/ktpn-4340-3619) Blood Structure of peripheral vein / Unknown Venipuncture / Unknown 05/11/2024 8:02 AM EST 05/11/2024 8:15 AM EST [facility] - 05/16/2024 12:01 PM EST [facility] Received Date: Yunior Pérez MD LAB BLOOD ORDERABLES Fin al Result [facility] [address], [place] [address], [place] [phone] [employer] [facility] [address], [place] [address], [place] [phone] * Phosphatidylethanol (PEth) (05/11/2024 8:02 AM EST) [...] LABORATORY Comment: Authorized individuals can access the [facility] Enhanced Report with an [facility] Connect account using the following link. Your local lab can assist you in obtaining the patient report if you don't have a Connect account. [email or web address] PEth Interpretation See Comment 04/22 5:33 PM EST [facility] Comment: Phosphatidylethanol (PEth) is a group [...] developed and its performance characteristics determined by [facility]. It has not been cleared or approved by the U.S. Food and Drug Administration. This test was performed in a CLIA-certified laboratory and is intended for clinical purposes. Performed By: [facility] [address] [place] [address] Bench Molder: Yusuf Lomas MD, PhD CLIA Number: [id number] Blood Structure of peripheral vein / Unknown Venipuncture / Unknown 05/11/2024 8:02 AM EST 05/11/2024 8:15 AM EST Yunior Pérez MD LAB BLOOD ORDERABLES Fin al Result [employer] [facility] [address] [phone], * Bqaff-9-Vinoifvjwed (AAT) Phenotype (05/11/2024 8:02 AM EST) Alpha 1 Antitrypsin Phenotype SEE NOTE 05/15/2024 1:10 PM EST [facility] Comment: THIS PATIENT'S MGMBW-5-FZBWDCOZBVX PHENOTYPE IS PI*MM. 90% of normal individuals have the MM phenotype, with normal quantitative AAT levels. Many phenotypic patterns have been described, including deficiency states with F, S, Z, or other alleles. As a general estimation, compared to M allele of 100% of normal K-8-Vezxnebvsjx protein, the S allele produces approximately 60% and the Z allele 20%. For example, an MS phenotype would have about 80% of normal X-5-Ocykgigjakc protein level, a 50% contribution from the M allele and 30% from the S allele. A ZZ phenotype would have about 20% of normal levels, a 10% contribution from each Z gene. The F allele has normal W-7-Fbbhvqjqmst levels, but the kinetics of elastase inhibition [...] EST 05/11/2024 8:13 AM EST Narrative [facility] - 05/15/2024 1:10 PM EST [facility] Received Date: Yunior Pérez MD LAB BLOOD ORDERABLES Fin al Result [facility] [address], [place] [address], [place] [phone] [place] [address], [place] [phone] * (ABNORMAL) MMR Panel, IgG (05/11/2024 8:02 AM EST) [facility] Measles Antibody (IgG), Immune Status <13.50(L) AU/mL 05/11/2024 5:16 PM EST [employer] [facility] Comment: AU/mL ?Interpretation ----- ? <13.50 ? Not consistent with immunity 13.50-16.49 ?Equivocal >16.49 ? Consistent with immunity The presence of measles IgG suggests immunization or past or current infection with measles virus. For additional information, please refer to http://Zoomingo.[employer]/faq/ZFS112 (This link is being provided for informational/ educational purposes only.) Mumps Antibody (IgG), Immune Status <9.00(L) AU/mL 05/11/2024 5:16 PM EST [email or web address] Comment: AU/mL ? Interpretation ------- ? <9.00 ? Not consistent with immunity 9.00-10.99 ?Equivocal >10.99 ?Consistent with immunity The presence of mumps IgG antibody suggests immunization or past or current infection with mumps virus. Rubella Antibody (IgG), Immune Status <0.90(L) Index 05/11/2024 5:16 PM EST [email or web address] Comment: ?Index ?Interpretation ?----- ?<0.90 ?Not consistent with immunity ?0.90-0.99 ?Equivocal ?> or = 1.00 ?Consistent with immunity The presence of rubella IgG antibody suggests immunization or past or current infection with rubella virus. Blood Structure of peripheral vein / Unknown Venipuncture / Unknown 05/11/2024 8:02 AM EST 05/11/2024 8:15 AM EST Narrative [facility] - 05/11/2024 5:16 PM EST [facility] Received Date: us Yunior Pérez MD LAB BLOOD ORDERABLES Fin al Result [facility] [address], [place] [address], [place] [phone] [employer] [facility] [address], [place] [address], [place] [phone] * (ABNORMAL) Herpes Simplex Virus 1&2, IgG (05/11/2024 8:02 AM EST) HSV 1 IgG Type Specific Ab <0.90 index 05/11/2024 9:20 PM EST [employer] [facility] HSV 2 IgG Type Specific Ab 1.66(H) index 05/11/2024 9:20 PM EST [employer] [facility] Comment: ?Index ?Interpretation ?----- ?<0.90 ?Negative ?0.90-1.09 ?Equivocal ?>1.09 ?Positive Low HSV-2 IgG positive results (index values between 1.10-3.00) may represent false positive results. CDC 2020 guidelines recommend confirmatory testing of samples with low-positive HSV-2 IgG results. If clinically indicated, consider adding on HSV-2 IgG Inhibition, by contacting [facility]. For additional information, please refer to: https://www.Globel [employer]/healthcare- professionals/jkalrhvb-exxqfxahf-sotfxv/faq/faq73 (This link is being provided for informational/ [...] screening. For additional information, please refer to http://education.Chai Energy/faq/EQN057 (This link is being provided for informational/ educational purposes only.) ?? Blood Structure of peripheral vein / Unknown Venipuncture / Unknown 05/11/2024 8:02 AM EST 05/11/2024 8:13 AM EST [facility] - 05/11/2024 9:20 PM EST [facility] Received Date: Yunior Pérez MD LAB BLOOD ORDERABLES Fin al Result [facility] [address], [place] [address], [employer] [facility] [address], [place] [address], * Protein Electrophoresis w/Reflex to Immunofixation, Serum (05/11/2024 8:02 AM EST) Protein, Total 6.9 6.1 - 8.1 g/dL 05/11/2024 10:39 PM EST [employer] [facility] Albumin 3.8 3.8 - 4.8 g/dL 05/11/2024 10:39 PM EST [employer] [facility] Alpha 1 Globulin 0.3 0.2 - 0.3 g/dL 05/11/2024 10:39 PM EST [employer] [facility] Alpha 2 Globulin 0.6 0.5 - 0.9 g/dL 05/11/2024 10:39 PM EST [employer] [facility] Beta 1 Globulin 0.5 0.4 - 0.6 g/dL 05/11/2024 10:39 PM EST [employer] [facility] Beta 2 Globulin 0.3 0.2 - 0.5 g/dL 05/11/2024 10:39 PM EST [employer] [facility] Gamma Globulin 1.4 0.8 - 1.7 g/dL 05/11/2024 10:39 PM EST [employer] [facility] Interpretation See Comments 05/11/2024 10:39 PM EST [employer] [facility] Comment: Normal Serum Protein Electrophoresis Pattern. No abnormal protein bands (M-protein) detected. Blood Structure of peripheral vein / Unknown Venipuncture / Unknown 05/11/2024 8:02 AM EST 05/11/2024 8:14 AM EST Narrative [employer] [facility] - 05/11/2024 10:39 PM EST [facility] Received Date:[id number] us Yunior Pérez MD LAB BLOOD ORDERABLES Fin al Result Performing Organization Address City/[facility]/ZIP Co de Phone Number [facility] [address], [place] [address], [place] [phone] [employer] [facility] [address], [place] [address], [place] [phone] * RPR (Diagnosis) w/Reflex to Titer & TPPA Confirm (05/11/2024 8:02 AM EST) RPR W/Refl Titer NON-REACT COLLINS NON-REACT COLLINS 05/11/2024 1:09 PM EST [employer] [facility] Blood Structure of peripheral vein / Unknown Venipuncture / Unknown 05/11/2024 8:02 AM EST 05/11/2024 8:15 AM EST Narrative [employer] [facility] - 05/11/2024 1:09 PM EST [facility] Received Date:[id number] us Yunior Pérez MD LAB BLOOD ORDERABLES Fin al Result Performing Organization Address City/[facility]/ZIP Co de Phone Number [facility] [address], [place] [address], [place] [phone] [employer] [facility] [address], [place] [address], [place] [phone] * (ABNORMAL) Iron Saturation (05/11/2024 8:02 AM EST) Iron Saturation 6(L) 20 - 50 % 8:57 AM EST [email or web address] Iron 25(L) 45 - 160 ug/dL 05/11/2024 8:57 AM EST [email or web address] Transferrin 316 200 - 360 mg/dL 05/11/2024 8:57 AM EST [email or web address] LAB[facility] Total Iron Binding Capacity 395 255 - 450 ug/dL 05/11/2024 8:57 AM EST [email or web address] LAB[facility] Blood Structure of peripheral vein / Unknown Venipuncture / Unknown 05/11/2024 8:02 AM EST 05/11/2024 8:15 AM EST Yunior Pérez MD LAB BLOOD ORDERABLES Fin al Result Performing Organization Address City/[facility]/ZIP Co de Phone Number [facility] [address] [place] [address], * TSH Reflex Free T4 (05/11/2024 8:02 AM EST) Pathologist [facility] TSH 2.130 0.280 - 3.890 uIU/mL 05/11/2024 8:57 AM EST [email or web address] LABORATORY Blood Structure of peripheral vein / Unknown Venipuncture / Unknown 05/11/2024 8:02 AM EST 05/11/2024 8:15 AM EST Yunior Pérez MD LAB BLOOD ORDERABLES Fin al Result Performing Organization Address City/[facility]/ZIP Co de Phone Number [facility] [address] [place] [address], * QuantiFERON-TB Gold Plus, 1 Tube (05/11/2024 8:02 AM EST) Pathologist [facility] QuantiFERON-TB Gold Plus NEGATIVE NEGATIVE 05/14/2024 2:04 PM EST [employer] [facility] Comment: Negative test result. M. tuberculosis complex infection unlikely. NIL 0.01 IU/mL 05/14/2024 2:04 PM EST [employer] [facility] Mitogen-NIL 9.32 IU/mL 05/14/2024 2:04 PM EST [employer] [facility] TB1-NIL 0.00 IU/mL 05/14/2024 2:04 PM EST [employer] [facility] TB2-NIL 0.01 IU/mL 05/14/2024 2:04 PM EST [employer] [facility] Comment: The Nil tube value reflects [...] T-lymphocytes. For additional information, please refer to https://education.ASP64/faq/DGH050 (This link is being provided for informational/ educational purposes only.) Blood Structure of peripheral vein / Unknown Venipuncture / Unknown 05/11/2024 8:02 AM EST 05/11/2024 8:10 AM EST [facility] - 05/14/2024 2:04 PM EST [facility] Received Date: Yunior Pérez MD LAB BLOOD ORDERABLES Fin al Result [facility] [address] [facility] [address] Floor, [place] [address], [place] [phone] [employer] [facility] [address] [facility] [address] Floor, [place] [address], [place] [phone] * (ABNORMAL) CBC Auto Differential (05/11/2024 8:02 AM EST) Pathologist [facility] WBC 8.6 3.8 - 10.8 10*3/uL 05/11/2024 8:22 AM EST [email or web address] RBC 3.56(L) 4.20 - [...] - 7.80 10*3/uL 05/11/2024 8:22 AM EST [email or web address] Immature Grans # 0.03 <=0.03 10*3/uL 05/11/2024 8:22 AM EST [facility] Lymphocyte # 1.60 0.85 - 3.90 10*3/uL 05/11/2024 8:22 AM EST [facility] Monocyte # 1.10(H) 0.20 - 0.95 10*3/uL 05/11/2024 8:22 AM EST [email or web address] Eosinophil # 0.20 0.02 - 0.50 10*3/uL 05/11/2024 8:22 AM EST [facility] Basophil # 0.10 0.00 - 0.20 10*3/uL 05/11/2024 8:22 AM EST [facility] nRBC % 0.0 /100 WBCs 05/11/2024 8:22 AM EST [email or web address] nRBC # <0.01 <0.01 10*3/uL 05/11/2024 8:22 AM EST [email or web address] Blood Structure of peripheral vein / Unknown Venipuncture / Unknown 05/11/2024 8:02 AM EST 05/11/2024 8:15 AM EST Yunior Pérez MD LAB BLOOD ORDERABLES Fin al Result [facility] Pathogen Scre[facility] LABORATORY [address] [place] [address], * Smooth Muscle Antibody Screen w/Reflex to Titer (05/11/2024 8:02 AM EST) Smooth Muscle AB Screen NEGATIVE NEGATIVE 05/14/2024 3:03 PM EST [employer] [facility] Comment: The specimen was negative for cytoplasmic antibodies, however additional staining was observed suggesting the presence of Antinuclear Antibodies. Consider requesting order code 249, SHELLY Screen, IFA with Reflex to Titer and Pattern, or order code [id number], SHELLY Screen, IFA w/reflex Titer/Pattern, and Reflex to Multiplex 11 Ab Wise, if clinically indicated. Blood Structure of peripheral vein / Unknown Venipuncture / Unknown 05/11/2024 8:02 AM EST 05/11/2024 8:15 AM EST Narrative [facility] IZ[facility] - 05/14/2024 3:03 PM EST [facility] Received Date:[id number] us Yunior Pérez MD LAB BLOOD ORDERABLES Fin al Result Performing Organization Address [facility]/ZIP Co de Phone Number [facility] ABERDE[facility] [address], [place] [address], [place] [phone] [employer] [facility] [address], [place] [address], [place] [phone] * Hepatitis C Antibody w/Reflex to PCR (05/11/2024 8:02 AM EST) Hepatitis C Antibody NON-REACT COLLINS NON-REACT COLLINS 05/11/2024 11:44 AM EST [employer] [facility] Comment: HCV antibody was non-reactive. There is no laboratory evidence of HCV infection. In most cases, no further action is required. However, if recent HCV exposure is suspected, a test for HCV RNA (test code 57516) is suggested. For additional information please refer to http://education.ASP64/faq/NJO87o3 (This link is being provided for informational/ educational purposes only.) Blood Structure of peripheral vein / Unknown Venipuncture / Unknown 05/11/2024 8:02 AM EST 05/11/2024 8:15 AM EST Narrative [facility] - 05/11/2024 11:44 AM EST [facility] Received Date:[id number] us Yunior Pérez MD LAB BLOOD ORDERABLES Fin al Result [facility]DE[facility] [address], [place] [address], [place] [phone] [facility] [address], [place] [address], * Hepatitis A Antibody, Total (05/11/2024 8:02 AM EST) Hepatitis A Ab, Total NON-REACT COLLINS NON-REACT COLLINS 05/11/2024 11:44 AM EST [email or web address] Comment: For additional information, please refer to http://education.ASP64/faq/PQD078 (This link is being provided for informational/ educational purposes only.) Blood Structure of peripheral vein / Unknown Venipuncture / Unknown 05/11/2024 8:02 AM EST 05/11/2024 8:15 AM EST Narrative [facility] - 05/11/2024 11:44 AM EST [facility] Received Date: Yunior Pérez MD LAB BLOOD ORDERABLES Fin al Result [facility] [address] [facility] [address]rd Floor, [place] [address], [employer] [facility] [address], [place] [address], * Histoplasma Antibody Panel, CF & ID (05/11/2024 8:02 AM EST) Histoplasma capsulatum yeast phase Ab <1:8 <1:8 NA 05/17/2024 12:21 PM EST [facility] ([facility]) Histoplasma capsulatum mycelial phase Ab <1:8 <1:8 NA 05/17/2024 12:21 PM EST [facility] ([place]) Comment: Interpretive Criteria: ?<1:8 - Antibody [...] analytical performance characteristics have been determined by [facility], [place], [place]. It has not been cleared or [...] BLOOD ORDERABLES Final Res ult K[facility] POND) [address] [place] [address], [place] * (ABNORMAL) SHELLY Screen, Reflex to Titer, IFA (05/11/2024 8:02 AM EST) Pathologist [facility] SHELLY Screen, IFA POSITIVE (A) NEGATIVE 05/16/2024 12:00 PM EST [employer] [facility] Comment: SHELLY IFA is a first line screen for detecting the presence of up to approximately 150 autoantibodies in various autoimmune diseases. A positive SHELLY IFA result is suggestive of autoimmune disease and reflexes to titer and pattern. Further laboratory testing may be considered if clinically indicated. For additional information, please refer to http://education.Chai Energy/faq/RTJ851 (This link is being provided for informational/ educational purposes only.) ?? Blood Structure of peripheral vein / Unknown Venipuncture / Unknown 05/11/2024 8:02 AM EST 05/11/2024 8:15 AM EST Narrative [facility] - 05/16/2024 12:00 PM EST [facility] Received Date: us Yunior Pérez MD LAB BLOOD ORDERABLES Fin al Result Performing Organization Address [facility]/ZIP Co de Phone Number [employer] ABERDEEN [address], [place] [address], [place] [phone] [employer] [address], [place] [address], * Ceruloplasmin (05/11/2024 8:02 AM EST) Ceruloplasmin 19 14 - 30 mg/dL 05/13/2024 1:07 AM EST [employer] [facility] Blood Structure of peripheral vein / Unknown Venipuncture / Unknown 05/11/2024 8:02 AM EST 05/11/2024 8:15 AM EST Narrative [facility] - 05/13/2024 1:07 AM EST [facility] Received Date:[id number] us Yunior Pérez MD LAB BLOOD ORDERABLES Fin al Result Performing Organization Address City/[facility]/ZIP Co de Phone Number [facility] ABERDEEN [address], [place] [address], [place] [phone] [employer] [address], [place] [address], * (ABNORMAL) Zinc (05/11/2024 8:02 AM EST) Zinc 45(L) 60 - 130 mcg/dL 05/15/2024 11:53 AM EST [facility] Comment: This test was developed and its analytical performance characteristics have been determined by [facility] [place], [place]. It has not been cleared or approved by the U.S. Food and Drug Administration. This assay has been validated pursuant to the CLIA regulations and is used for clinical purposes. Blood Structure of peripheral vein / Unknown Venipuncture / Unknown 05/11/2024 8:02 AM EST 05/11/2024 8:15 AM EST Narrative [facility] ([place]) - 05/15/2024 11:53 AM EST [facility] Received Date: us Yunior Pérez MD LAB BLOOD ORDERABLES Fin al Result Performing Organization Address [facility] de Phone Number [facility]IM[facility] LITTLEJOHN [employer]ANCHE[facility]) [address] [place], [place] , [place] * (ABNORMAL) Vitamin A (Retinol) (05/11/2024 8:02 AM EST) [facility] Vitamin A (Retinol) 15(L) 38 - 98 mcg/dL 05/14/2024 11:11 PM EST [facility] LITTLE[facility] (SANCHEZ) Comment: Vitamin supplementation within 24 hours prior to blood draw may affect the accuracy of the results. This test was developed and its analytical performance characteristics have been determined by [facility] [place]. It has not been cleared or approved by the U.S. Food and Drug Administration. This assay has been validated pursuant to the CLIA regulations and is used for clinical purposes. Blood Structure of peripheral vein / Unknown Venipuncture / Unknown 05/11/2024 8:02 AM EST 05/11/2024 8:10 AM EST Narrative [facility] ([place]) - 05/14/2024 11:11 PM EST [facility] Received Date:[id number] us Yunior Pérez MD LAB BLOOD ORDERABLES Fin al Result Performing Organization Address City/[facility] Co de Phone Number KIMBERLY LITTLEJOHN [employer]SANCHEZ) [address] [place] [address], [place] * (ABNORMAL) AFP Tumor Marker (05/11/2024 8:02 AM EST) Pathologist [facility] Alpha Fetoprotein, Tumor Marker 7.4(H) <6.1 ng/mL 05/14/2024 1:16 PM EST [email or web address] Comment: This test was performed using the Bakari [place] chemiluminescent method. Values obtained from different assay methods cannot be used interchangeably. AFP levels, regardless of value, should not be interpreted as absolute evidence of the presence or absence of disease. Blood Structure of peripheral vein / Unknown Venipuncture / Unknown 05/11/2024 8:02 AM EST 05/11/2024 8:15 AM EST [facility] ABERDEEN - 05/14/2024 1:16 PM EST [facility] Received Date:[id number] Yunior Pérez MD LAB BLOOD ORDERABLES Fin al Result [facility] [address] [facility] [address] Floor, [place] [address], [employer] [facility] [address] [facility] [address], [place] [address], * (ABNORMAL) Nikhil-Richardson Virus VCA, IgG (05/11/2024 8:02 AM EST) Pathologist [facility] EBV Viral Capsid Ag Ab (IGG) >750.00(H ) U/mL 05/11/2024 5:16 PM EST [email or web address] Comment: ? U/mL ? Interpretation ? ---- ? <18.00 ? Negative ? 18.00-21.99 ?Equivocal ? >21.99 ? Positive Blood Structure of peripheral vein / Unknown Venipuncture / Unknown 05/11/2024 8:02 AM EST 05/11/2024 8:15 AM EST Narrative [facility] - 05/11/2024 5:16 PM EST [facility] Received Date: us Yunior Pérez MD LAB BLOOD ORDERABLES Fin al Result [facility] [address] [facility] [address] [facility], [place] [address], [place] [phone] [employer] [facility] [address], [place] [address], [place] [phone] * Hepatitis B Core Antibody, Total (05/11/2024 8:02 AM EST) Hepatitis B Core Ab Total NON-REACT COLLINS NON-REACT COLLINS 05/11/2024 11:44 AM EST [employer] [facility] Comment: For additional information, please refer to http://education.ASP64/faq/XFT581 (This link is being provided for informational/ educational purposes only.) Blood Structure of peripheral vein / Unknown Venipuncture / Unknown 05/11/2024 8:02 AM EST 05/11/2024 8:15 AM EST Narrative [facility] - 05/11/2024 11:44 AM EST [facility] Received Date:[id number] us Yunior Pérez MD LAB BLOOD ORDERABLES Fin al Result [facility] IZQUIERDO [address] [facility] [address] Floor, [place] [address], [place] [phone] [employer] [facility] [address], [place] [address], [place] [phone] * (ABNORMAL) Vitamin D, 25-Hydroxy, Total, Immunoassay (05/11/2024 8:02 AM EST) Calcidiol+ercalc idiol 13(L) 30 - 100 ng/mL 05/11/2024 11:52 AM EST [email or web address] Comment: Vitamin D Status ? 25-OH Vitamin D: Deficiency: ?<20 ng/mL Insufficiency: ? 20 - 29 ng/mL Optimal: ? > or = 30 ng/mL For 25-OH Vitamin D testing on patients on D2-supplementation and patients for whom quantitation of D2 and D3 fractions is required, the QuestAssureD(TM) 25-OH VIT D, (D2,D3), LC/MS/MS is recommended: order code [id number] (patients >2yrs). See Note 1 Note 1 For additional information, please refer to http://education.Chai Energy/faq/VKG665 (This link is being provided for informational/ educational purposes only.) Blood Structure of peripheral vein / Unknown Venipuncture / Unknown 05/11/2024 8:02 AM EST 05/11/2024 8:15 AM EST Narrative [facility] - 05/11/2024 11:52 AM EST [facility] Received Date: Yunior Pérez MD LAB BLOOD ORDERABLES Fin al Result [facility] [address] [facility] [address] Floor, [place] [address], [employer] [facility] [address] [facility] [address], [place] [address], [place] [phone] * Mitochondrial Antibody w/Reflex (05/11/2024 8:02 AM EST) Pathologist [facility] Mitochondrial Ab Screen NEGATIVE NEGATIVE 05/14/2024 3:03 PM EST [email or web address] Comment: The specimen was negative for cytoplasmic antibodies, however additional staining was observed suggesting the presence of Antinuclear Antibodies. Consider requesting order code 249, SHELLY Screen, IFA with Reflex to Titer and Pattern, or order code [id number], SHELLY Screen, IFA w/reflex Titer/Pattern, and Reflex to Multiplex 11 Ab Wise, if clinically indicated. Blood Structure of peripheral vein / Unknown Venipuncture / Unknown 05/11/2024 8:02 AM EST 05/11/2024 8:13 AM EST Narrative [employer] [facility] - 05/14/2024 3:03 PM EST [facility] Received Date: us Yunior Pérez MD LAB BLOOD ORDERABLES Fin al Result Performing Organization Address City/[facility] de Phone Number [employer] ABERDEEN [address], [place] [address], [employer] [facility] [address], [place] [address], * Toxoplasma gondii Antibody, IgG (05/11/2024 8:02 AM EST) Toxoplasma Ab IgG <7.20 IU/mL 05/11/2024 9:20 PM EST [email or web address] Comment: ? IU/mL ?Interpretation ? ------ ? <7.20 ?Negative ? 7.20-8.79 ?Equivocal ? >8.79 ?Positive Blood Structure of peripheral vein / Unknown Venipuncture / Unknown 05/11/2024 8:02 AM EST 05/11/2024 8:13 AM EST Narrative [employer] [facility]LASOUT[facility] - 05/11/2024 9:20 PM EST [facility] Received Date:[id number] us Yunior Pérez MD LAB BLOOD ORDERABLES Fin al Result Performing Organization Address [facility]/ZIP Co de Phone Number [employer] ABERDEEN [address], [place] [address], [place] [phone] [employer] [facility] [address], [place] [address], * (ABNORMAL) Hepatitis B Surface Antibody (05/11/2024 8:02 AM EST) Hepatitis B Surface Ab Immunity, Qn <5(L) > OR = 10 mIU/mL 05/11/2024 11:44 AM EST [employer] [facility] Comment: PATIENT DOES NOT HAVE IMMUNITY TO HEPATITIS B VIRUS. For additional information, please refer to http://Zoomingo.ASP64/faq/IBE384 (This link is being provided for informational/ educational purposes only). Blood Structure of peripheral vein / Unknown Venipuncture / Unknown 05/11/2024 8:02 AM EST 05/11/2024 8:15 AM EST Narrative [facility] - 05/11/2024 11:44 AM EST [facility] Received Date: Yunior Pérez MD LAB BLOOD ORDERABLES Fin al Result [facility] IZQUIER[facility] [address] [facility] [address] [facility], [place] [address], [place] [phone] [employer] [facility] [address], [place] [address], * Hepatitis B Surface Antigen w/Confirmation (05/11/2024 8:02 AM EST) Hepatitis B Surface Antigen NON-REACT COLLINS NON-REACT COLLINS 05/11/2024 11:44 AM EST [employer] [facility] Comment: For additional information, please refer to http://Zoomingo.ASP64/faq/PMD174 (This link is being provided for informational/ educational purposes only.) Blood Structure of peripheral vein / Unknown Venipuncture / Unknown 05/11/2024 8:02 AM EST 05/11/2024 8:15 AM EST Narrative [facility] - 05/11/2024 11:44 AM EST [facility] Received Date: Yunior Pérez MD LAB BLOOD ORDERABLES Fin al Result [facility] IZQUIER[facility] [address] [facility] [address] Floor, [place] [address], [employer] [facility] [address] [facility] [address], [place] [address], * (ABNORMAL) Cytomegalovirus Antibody, IgG (05/11/2024 8:02 AM EST) [facility] Cytomegalovirus Antibody (IgG) 6.00(H) U/mL 05/12/2024 4:15 AM EST [email or web address] Comment: ? U/mL ? Interpretation ? ----- ? <0.60 ? Negative ? 0.60-0.69 ? Equivocal ? > or = 0.70 ?? Positive A positive result indicates that the patient has antibody to CMV. It does not differentiate between an active or past infection. Blood Structure of peripheral vein / Unknown Venipuncture / Unknown 05/11/2024 8:02 AM EST 05/11/2024 8:15 AM EST Narrative [facility] - 05/12/2024 4:15 AM EST [facility] Received Date:[id number] us Yunior Pérez MD LAB BLOOD ORDERABLES Fin al Result [employer] ABERDEEN [address] [facility] [address] Floor, [place] [address], [place] [phone] [employer] [facility] [address] [facility] [address] Floor, [place] [address], [place] [phone] * (ABNORMAL) PTT (05/11/2024 8:02 AM EST) aPTT 33.2(H) 23.0 - 32.0 Seconds 05/11/2024 9:04 AM EST [email or web address] Comment: Current PTT reagent is not sensitive to detect all Lupus Anticoagulant (LA) Inhibitor Cases. ?? If a LA is suspected, please order a Lupus Anticoagulation w/ Reflex Test which is performed at [facility] in [place], [place]. Blood Structure of peripheral vein / Unknown Venipuncture / Unknown 05/11/2024 8:02 AM EST 05/11/2024 8:13 AM EST us Yunior Pérez MD LAB BLOOD ORDERABLES Fin al Result [facility] [address] [place] [address], * Protime-INR (05/11/2024 8:02 AM EST) PT 11.9 9.6 - 12.4 Seconds 05/11/2024 9:04 AM EST [email or web address] INR 1.1 0.9 - 1.1 05/11/2024 9:04 AM EST [email or web address] Comment:The optimal therapeu tic INR range for patients treated with Vitamin K antagonists (VKAS, e.g., Warfarin) is 2.0 to 3.5. Discuss the desired range with your doctor/care team. Blood Structure of peripheral vein / Unknown Venipuncture / Unknown 05/11/2024 8:02 AM EST 05/11/2024 8:13 AM EST us Yunior Pérez MD LAB BLOOD ORDERABLES Fin al Result Performing Organization Address [facility] de Phone Number [facility] [address] [place] [address], * Type and Screen (05/11/2024 8:02 AM EST) Pathologist [facility] ABO Blood Type B 05/11/2024 9:09 AM EST [facility] RH Type Negative 05/11/2024 9:09 AM EST [facility] Expiration Date/Time 2024-05-14 23:59 05/11/2024 9:09 AM EST [facility] Antibody Screen Negative 05/11/2024 9:09 AM EST [facility] Blood Structure of peripheral vein / Unknown Venipuncture / Unknown 05/11/2024 8:02 AM EST 05/11/2024 8:06 AM EST us Yunior Pérez MD LAB BLOOD BANK TEST HOLLY STORM Edited Result - Final Performing Organization Address [facility] de Phone Number [facility] [address] [place] [address], * Varicella Zoster Antibody, IgG (05/11/2024 8:02 AM EST) Pathologist [facility] Varicella Zoster Virus Antibody 2.40 S/CO 05/11/2024 5:07 PM EST [email or web address] Comment: ?Signal to Cut-off ? S/CO ?Interpretation [...] AM EST 05/11/2024 8:13 AM EST Narrative [facility] - 05/11/2024 5:07 PM EST [facility] Received Date:[id number] Yunior Pérez MD LAB BLOOD ORDERABLES Fin al Result [facility] ABERDE[facility] [address] [facility] [address], [place] [address], [employer] [facility] [address] [facility] [address], [place] [address], * PSA (05/11/2024 8:02 AM EST) PSA 0.04 <=4.00 ng/mL 05/11/2024 8:53 AM EST [email or web address] Comment: The total PSA value from this assay system is standardized against the WHO standard. ??The test result will be slightly lower (< 3 %) when compared to the equimolar-standardized total PSA(Bakari [place]). ??Comparison of Serial PSA results should be [...] MD LAB BLOOD ORDERABLES Fin al Result [email or web address] [address] [place] [address], [place] * Phosphorus (05/11/2024 8:02 AM EST) Phosphorus 3.2 2.5 - 4.5 mg/dL 05/11/2024 8:57 AM EST [email or web address] Blood Structure of peripheral vein / Unknown Venipuncture / Unknown 05/11/2024 8:02 AM EST 05/11/2024 8:15 AM EST us Yunior Pérez MD LAB BLOOD ORDERABLES Fin al Result Performing Organization Address [facility] Co de Phone Number [email or web address] LAB[facility]ORY [address] [place] [address], [place] * Magnesium (05/11/2024 8:02 AM EST) MG 1.9 1.6 - 2.4 mg/dL 05/11/2024 8:57 AM EST [email or web address] Blood Structure of peripheral vein / Unknown Venipuncture / Unknown 05/11/2024 8:02 AM EST 05/11/2024 8:15 AM EST us Yunior Pérez MD LAB BLOOD ORDERABLES Fin al Result [email or web address] [address] [place] [address], [place] * Hemoglobin A1c (05/11/2024 8:02 AM EST) Pathologist [facility] Hemoglobin A1C 4.7 <5.7 % of total Hgb 05/12/2024 10:03 AM [facility] Comment: For the purpose of screening for the presence of diabetes: <5.7% ? Consistent with the absence of diabetes 5.7-6.4% ?Consistent with increased risk for diabetes ?(prediabetes) > or =6.5% ??Consistent with diabetes This assay result is consistent with a decreased risk of diabetes. Currently, no consensus exists regarding use of hemoglobin A1c for diagnosis of diabetes in children. According to [place] [employer] (ADA) guidelines, hemoglobin A1c <7.0% represents optimal control in non- diabetic patients. Different metrics may apply to specific patient populations. Standards of Medical Care in Diabetes(ADA). ?? eAG (MG/DL) 88 mg/dL 05/12/2024 10:03 AM EST [email or web address] eAG (MMOL/L) 4.9 mmol/L 05/12/2024 10:03 AM [facility] Blood Structure of peripheral vein / Unknown Venipuncture / Unknown 05/11/2024 8:02 AM EST 05/11/2024 8:15 AM EST [facility] KIMBER[facility] IZQUIERDO - 05/12/2024 10:03 AM EST [facility] Received Date: Yunior Pérez MD LAB BLOOD ORDERABLES Fin al Result KIMBERLY IZQUIERDO [address] [facility] 3rd Floor, [place] [address], [place] [phone] [email or web address] [address] [facility] [address] Floor, [place] [address], [place] [phone] * Ferritin (05/11/2024 8:02 AM EST) Pathologist [facility] Ferritin 44.9 23.0 - 336.0 ng/mL 05/11/2024 8:57 AM EST [email or web address] Blood Structure of peripheral vein / Unknown Venipuncture / Unknown 05/11/2024 8:02 AM EST 05/11/2024 8:15 AM EST us Yunior Pérez MD LAB BLOOD ORDERABLES Fin al Result Performing Organization Address City/[facility]/ZIP Co de Phone Number [email or web address] CL[facility] PATHOLOG[facility] LABORATORY [address] [place] [address], [place] * (ABNORMAL) Bilirubin, Direct (05/11/2024 8:02 AM EST) Bilirubin, Direct 0.8(H) <=0.4 mg/dL 05/11/2024 8:57 AM EST [email or web address] Blood Structure of peripheral vein / Unknown Venipuncture / Unknown 05/11/2024 8:02 AM EST 05/11/2024 8:15 AM EST us Yunior Pérez MD LAB BLOOD ORDERABLES Fin al Result Performing Organization Address [facility] Co de Phone Number [email or web address] CL[facility]ICAL PATHOLOGY LABORATORY [address] [place] [address], [place] * Ethanol (05/11/2024 8:02 AM EST) Ethanol <10 <10 mg/dL 05/11/2024 8:53 AM EST [email or web address] Blood Structure of peripheral vein / Unknown Venipuncture / Unknown 05/11/2024 8:02 AM EST 05/11/2024 8:11 AM EST us Yunior Pérez MD LAB BLOOD ORDERABLES Fin al Result Performing Organization Address City/[facility] Co de Phone Number [email or web address] CL[facility] PATHOLOGY LABORATORY [address] [place] [address], [place] * (ABNORMAL) Lipid panel (05/11/2024 8:02 AM EST) Cholesterol 142 <=199 mg/dL 05/11/2024 8:57 AM EST [email or web address] Triglycerides 82 <=149 mg/dL 05/11/2024 8:57 AM EST [email or web address] Cholesterol, HDL 71(H) 40 - 59 mg/dL 05/11/2024 8:57 AM EST [email or web address] Cholesterol, Non-HDL 71 mg/dL 05/11/2024 8:57 AM EST [email or web address] LDL Cholesterol 55 <100 mg/dL 05/11/2024 8:57 AM EST [email or web address] VLDL 16.4 mg/dL 05/11/2024 8:57 AM EST [email or web address] Cholesterol/HDL Ratio 2.0 <5.0 05/11/2024 8:57 AM [facility] CL[facility]OLOG[facility] LAB[facility] Blood Structure of peripheral vein / Unknown Venipuncture / Unknown 05/11/2024 8:02 AM EST 05/11/2024 8:15 AM EST Merged With [email or web address] CLINICAL PATHOLOGY LABORATORY - 05/11/2024 8:57 AM [...] MD LAB BLOOD ORDERABLES Fin al Result [facility] [address] [place] [address], * (ABNORMAL) Comprehensive Metabolic Panel (05/11/2024 8:02 [...] - 32 mmol/L 05/11/2024 8:57 AM EST [facility] Anion Gap [...] - 5.2 g/dL 05/11/2024 8:57 AM EST [email or web address] Bilirubin, Total 1.5(H) 0.2 - 1.2 mg/dL 05/11/2024 8:57 AM EST [email or web address] Alkaline Phosphatase 165(H) 35 - 129 U/L 05/11/2024 8:57 AM EST [facility] AST 23 10 - 40 U/L 05/11/2024 8:57 AM EST [email or web address] ALT 11 10 - 40 U/L 05/11/2024 8:57 AM EST [email or web address] BUN 16 7 - 23 mg/dL 05/11/2024 8:57 AM EST [email or web address] eGFR 74 >=60 mL/min/1. 73m2 05/11/2024 8:57 AM EST [email or web address] Comment:The estimated glomer ular [...] - 4.2 g/dL 05/11/2024 8:57 AM EST [email or web address] A/G Ratio 1.2(L) 1.5 - 3.0 05/11/2024 8:57 AM EST [email or web address] PATH[facility] LAB[facility]ORY Blood Structure of peripheral vein / Unknown Venipuncture / Unknown 05/11/2024 8:02 AM EST 05/11/2024 8:15 AM EST Yunior Pérez MD LAB BLOOD ORDERABLES Fin al Result [facility] [address] [place] [address], * LIVER PRE EXTERNAL PANEL (04/16/2024) Sodium [...] [facility] from Last 3 Months Insurance MEDICARE [facility] Room [address] [place] [address] MEDICARE [facility] Advance Directives Documents on File Type Date Recorded Patient Bell Captain Expl [facility] Health Care Proxy 05/15/2024 3:29 PM 05-11 Care Teams Methods Time Analyst Relationship Specialty Start Date End Date Gulshan Chanel [address] [place] [address] PCP - General 04/17/24
--- OUTSIDE RECORDS SUMMARY | 2024-06-08 11:21 | XMS_ITS | Encounter Summary ---
Author Organization [facility] Address [address] [place] [address] Care Team Providers Care Director Fraud Name Role Phone Gulshan Chanel Primary Care Provider +1- [phone] Reason for Referral * Cardiac Diagnostic Testing (Routine) - Closed Specialty Diagnoses / Procedures Referred By Billy younger Referred To Contact Diagnoses Encounter for pre-transplant evaluation for liver transplant Procedures Echocardiogram dobutamine stress test (DSE) Yunior Pérez MD [address] [place] [address] Phone: tel: fax: Referral ID Status Reason Start Date Expiration Date Visits Re quested Visits Authorized [id number] Closed 05/18/2024 11/17/2025 1 1 Encounter Details Date Type Department Care Team (Late st Contact Info) Description 05/18/2024 Orders Only [facility] Transplant Department [address] [place], [place] [phone] Angela Weaver, LUDY Encounter for pre-transplant evaluation [...] Description 06/11/2024 10:30 AM EDT Follow-Up [facility] Liver Transplant Services [address] [place] [address] Nathan Ortiz MD [address] [place] [address] 06/11/2024 11:00 AM EDT Clinical Support [facility] Liver Transplant Services [address] [place] [address] Scheduled Orders Name Type Priority Associated Diagnoses Order Schedule Echocardiogram dobutamine stress test (DSE) Stress Echocardiography Routine Encounter for pre-transplant evaluation for liver transplant Expected: 05/18/2024, Expires: 05/18/2026 documented as of this encounter Visit Diagnoses Diagnosis Encounter for pre-transplant evaluation for liver transplant- Primary documented in this encounter Care Teams Director Fraud Relationship Specialty Start Date End Date Gulshan Chanel [address] [place] [address] PCP - General 04/17/24 documented as of this encounter
--- OUTSIDE RECORDS SUMMARY | 2024-06-08 11:21 | XMS_ITS | Encounter Summary ---
Author Organization [facility] Address [address] [place] [address] Care Team Providers Care Wind Development Director Name Role Phone Gulshan Chanel Primary Care Provider +1- [phone] Encounter Details Date Type Department Care Team (Late st Contact Info) Description 05/16/2024 Orders Only [facility] Transplant Department [address] [place] [address] Angela Weaver RN Alcoholic cirrhosis of liver with ascites (Primary Dx) Social History Tobacco Use Types [...] Info) Description 06/11/2024 10:30 AM EDT Follow-Up [facility] Liver Transplant Services [address] [place] [address] Nathan Ortiz MD [address] [place] [address] 06/11/2024 11:00 AM EDT Clinical Support [facility] Liver Transplant Services [address] [place] [address] Scheduled Orders Name Type Priority Associated Diagnoses Orde r Schedule Protime-INR Lab Routine Alcoholic cirrhosis of liver with ascites Expected: 05/31/2024, Expires: 05/16/2025 CBC Auto Differential Lab Routine Alcoholic cirrhosis of liver with ascites Expected: 05/31/2024, Expires: 05/16/2025 Comprehensive Metabolic Panel Lab Routine Alcoholic cirrhosis of liver with ascites Expected: 05/31/2024, Expires: 05/16/2025 Phosphatidylethanol (PEth) Lab Routine Alcoholic cirrhosis of liver with ascites Expected: 05/31/2024, Expires: 05/16/2025 ABO/RH Blood Type Lab Routine Alcoholic cirrhosis of liver with ascites Expected: 05/17/2024, Expires: 05/17/2025 documented as of this encounter Visit Diagnoses Diagnosis Alcoholic cirrhosis of liver with ascites (HCC)- Primary documented in this encounter Care Teams Wind Development Director Relationship Specialty Start Date End Date Gulshan Chanel [address] [place] [address] PCP - General 04/17/24 documented as of this encounter
--- OUTSIDE RECORDS SUMMARY | 2024-06-08 11:21 | XMS_ITS | Encounter Summary ---
Author Organization [facility] Address [address] [place] [address] Care Team Providers Care Wrapper Operator Name Role Phone Gulshan Chanel Primary Care Provider Encounter Details Date Type Department Care Team (Late st Contact Info) Description 05/16/2024 Telephone [facility] [address] [place] [address] Fold Skiver: Yunior Bravo MD [address] [place] [address] Social History Tobacco Use Types Packs/Day [...] something and requesting a call back at [phone] * Telephone Encounter - Yunior Pérez MD - 05/16/2024 1:15 PM EST Spoke with Dangelo to review labs. Will send vitamin replacements for zinc, vitamin A, and D. Discussed mildly positive PEth. He will stop cooking with any wine. Denies consuming alcohol. Hyponatremia to 127 noted. He will get labs done at [facility] the week of 05/28. This will include [...] Info) Description 06/11/2024 10:30 AM EDT Follow-Up [facility] Liver Transplant Services [address] [place] [address] Nathan Ortiz MD [address] [place] [address] 06/11/2024 11:00 AM EDT Clinical Support [facility] Liver Transplant Services [address] [place] [address] documented as of this encounter Visit Diagnoses Not on filedocumented in this encounter Care Teams Wrapper Operator Relationship Specialty Start Date End Date Gulshan Chanel [address] [place] [address] PCP - General 04/17/24 documented as of this encounter
--- OUTSIDE RECORDS SUMMARY | 2024-06-08 11:21 | XMS_ITS | Encounter Summary ---
Author Organization [facility] Address [address] [place] [address] Care Team Providers Care Case Management Associate Name Role Phone Gulshan Chanel Primary Care Provider +1- [phone] Encounter Details Date Type Department Care Team (Late st Contact Info) Description 05/24/2024 Telephone [facility] Transplant Department [address] [place] [address] Angela Weaver RN Social History Tobacco Use [...] - 05/24/2024 2:55 PM EST Confirmed with DIANEN Pierson appt at [facility] on 05/28 at 9:50 NPO 4 hours no caffeine for 12 hours . Provided [facility] number [phone] documented in this encounter Plan of Treatment Upcoming Encounters Date Type Department Care Team (Late st Contact Info) Description 06/11/2024 10:30 AM EDT Follow-Up [facility] Liver Transplant Services [address] [place] [address] Nathan Ortiz MD [address] [place] [address] 06/11/2024 11:00 AM EDT Clinical Support [facility] Liver Transplant Services [address] [place] [address] documented as of this encounter Visit Diagnoses Not on filedocumented in this encounter Care Teams Case Management Associate Relationship Specialty Start Date End Date Gulshan Chanel [address] [place] [address] PCP - General 04/17/24 documented as of this encounter
--- OUTSIDE RECORDS SUMMARY | 2024-06-08 11:22 | XMS_ITS | Encounter Summary ---
Author Organization [facility] Address [address] [place] [address] Care Team Providers Care Line Up Worker Name Role Phone Gulshan Chanel Primary Care Provider +1- [phone] Reason for Visit * Reason Onset Date Comments Med Refill 05/11/2024 Encounter Details Date Type Department Care Team (Late st Contact Info) Description 05/11/2024 Refill [facility] Transplant Department [address] [place] [address] Alena Olivier Hepatic cirrhosis, unspecified hepatic cirrhosis type, unspecified whether ascites present (Primary Dx); Moderate protein-calorie malnutrition Social History Tobacco Use Types Packs/Day Years [...] Info) Description 06/11/2024 10:30 AM EDT Follow-Up [facility] Liver Transplant Services [address] [place] [address] Nathan Ortiz MD [address] [place] [address] 06/11/2024 11:00 AM EDT Clinical Support [facility] Liver Transplant Services [address] [place] [address] documented as of this encounter Visit Diagnoses Diagnosis Hepatic cirrhosis, unspecified hepatic cirrhosis type, unspecified whether ascites present (HCC)- Primary Moderate protein-calorie malnutrition (HCC) documented in this encounter Care Teams Line Up Worker Relationship Specialty Start Date End Date Gulshan Chanel [address] [place] [address] PCP - General 04/17/24 documented as of this encounter
--- OUTSIDE RECORDS SUMMARY | 2024-06-08 11:22 | XMS_ITS | Encounter Summary ---
Author Organization [facility] Address [address] [place] [address] Care Team Providers Care Fulling Machine Operator Name Role Phone Gulshan Chanel Primary Care Provider +1 [phone] Reason for Visit * Reason Comments Liver Eval * Transplant (Routine) - Authorized Specialty Diagnoses / Procedures Referred By Billy younger Referred To Contact Transplant Diagnoses Liver Transplant Evaluation Erin Allen MD [address] [address] Phone: tel: fax: [facility] Liver Transplant Services [address] [place] [address] Phone: tel: fax: Referral ID Status Reason Start Date Expiration Date V isits Requested Visits Authorized [id number] Authorized 03/15/2024 03/16/2025 99 99 Encounter Details Date Type Department Care Team ([facility] st Contact Info) Description 05/11/2024 3:15 PM EST Office Visit [facility] Liver Transplant Services [address] [place] [address] Kash Ramirez MD PhD [address] [place] [phone] Alcoholic cirrhosis of liver with ascites (Primary Dx); Portal hypertension; Moderate protein-calorie malnutrition; Secondary esophageal varices without bleeding Social History Tobacco Use Types Packs/Day Years [...] in this encounter Progress Notes * Kash Ramierz MD PhD - 05/11/2024 1:33 PM EST [...] 250 mg by mouth once a day. [id number]-[id number]-wn [id number] mg capsule 5 mg. omeprazole (PriLOSEC) 20 [...] expected outcomes for liver transplant at the [facility] and nationally. Specific risks reviewed include: [...] of which at least 35 minutes in yrul-jf-gigp patient encounter. I have seen and evaluated Dangelo Miller and will be providing ongoing care and management for these medical conditions: chronic hepatic failure Kash Ramirez MD PhD documented in this encounter Plan of Treatment Upcoming Encounters Date Type Department Care Team (Late st Contact Info) Description 06/11/2024 10:30 AM EDT Follow-Up [facility] Liver Transplant Services [address] [place] [address] Nathan Ortiz MD [address] [place] [address] 06/11/2024 11:00 AM EDT Clinical Support [facility] Liver Transplant Services [address] [place] [address] documented as of this encounter Visit Diagnoses Diagnosis Alcoholic cirrhosis of liver with ascites (HCC)- Primary Portal hypertension (HCC) Portal hypertension Moderate protein-calorie malnutrition (HCC) Secondary esophageal varices without bleeding (HCC) documented in this encounter Care Teams Fulling Machine Operator Relationship Specialty Start Date End Date Gulshan Chanel [address] [place] [address] PCP - General 04/17/24 documented as of this encounter
--- OUTSIDE RECORDS SUMMARY | 2024-06-08 11:22 | XMS_ITS | Data Portability ---
Author Organization [facility] Address [address] [place] [address] Care Team Providers Care Concrete Saw Operator Name Role Phone [facility] Primary Care Provider Assessment No assessment recorded. Plan of Treatment Reminders Order Date Submit Date Provider Last Modified By Organization Details Last Modified Time Details Appointments None recorded. Lab urinalysis , dipstick 2022 023 [email or web address] [facility], [facility] [place], [address], 3 08:58:12 culture, urine 2022 023 [place] [facility], [address] [place] [address], [place], [address], 3 08:06:03 Referral None recorded. Procedures None recorded. Surgeries None recorded. Imaging None recorded. Medication Orders Macrobid 100 mg capsule 2022 023 [facility][id number], [address] [facility] [place], [address], 3 08:58:11 Patient TargetsNo targets recorded. Patient Instructions Encounter Date Encounter Id Patient Instructions Last Modified By Organization Details Last Modified Time 09/25/2022 [id number] We are going to treat you for [...] ([facility]) [address], [place], [address], 09/27/2022 08:06:03 09/26/1909/27/2022 URINE CULTU RETAMMIE NE result 1 NO GROWTH Not Available [facility] ([facility]) [address], [place], [address], 09/27/2022 08:06:03 09/26/1909/25/2022 urina lysis , dipst ick Unknown Analyte Normal = light yellow Not Available [address] [place], [address], 09/25/2022 08:38:49 09/26/1909/25/2022 urina lysis , dipst ick Unknown Analyte Normal = clear Not Available [address] [place] [address] [place], [address], 09/25/2022 08:38:49 09/26/1909/25/2022 urina lysis , dipst ick Unknown Analyte Normal = negati ve Not Available [address] [place] [address], [place], [address], 09/25/2022 08:38:49 09/26/1909/25/2022 urina lysis , dipst ick Unknown Analyte Normal = Negati ve Not Available [address] [place] [address] [place], [address], 09/25/2022 08:38:49 09/26/1909/25/2022 urina lysis , dipst ick Unknown Analyte Normal = Negati ve Not Available [facility] [address], [place], [address], 09/25/2022 08:38:49 09/26/1909/25/2022 urina lysis , dipst ick Unknown Analyte Normal = 1.010, 1.015, 1.020 Not Available [address] [place] [address], [place], [address], 09/25/2022 08:38:49 09/26/1909/25/2022 urina lysis , dipst ick Unknown Analyte Normal = Negati ve Not Available [address] [place] [address], [place], [address], 09/25/2022 08:38:49 09/26/1909/25/2022 urina lysis , dipst ick Unknown Analyte Normal = 6.5, 7.0, 7.5, 8.0 Not Available [address] [place] [address], [place], [address], 09/25/2022 08:38:49 09/26/1909/25/2022 urina lysis , dipst ick Unknown Analyte Normal = Negati ve Not Available [address] [place] [address], [place], [address], 09/25/2022 08:38:49 09/26/1909/25/2022 urina lysis , dipst ick Unknown Analyte Normal = 0.2, 1.0 Not Available [address] [place] [address], [place], [address], 09/25/2022 08:38:49 09/26/1909/25/2022 urina lysis , dipst ick Unknown Analyte Normal = Negati ve Not Available vamsi alicia [address], [place], [address], 09/25/2022 08:38:49 09/26/1909/25/2022 urina lysis , dipst ick Unknown Analyte Normal = Negati ve Not Available vamsi alicia [address], [place], [address], 09/25/2022 08:38:49 09/26/1909/25/2022 urina lysis , dipst ick Unknown Analyte Cydney Not Available sacha [address], [place], [address], 09/25/2022 08:38:49 09/26/1909/25/2022 urina lysis , dipst ick Unknown Analyte Slight ly Cloudy Not Available vamsi alicia [address], [place], [address], 09/25/2022 08:38:49 09/26/1909/25/2022 urina lysis , dipst ick Unknown Analyte 100 mg/dL Not Available vamsi alicia [address], [place], [address], 09/25/2022 08:38:49 09/26/1909/25/2022 urina lysis , dipst ick Unknown Analyte Modera te Not Available vamsi alicia [address], [place], [address], 09/25/2022 08:38:49 09/26/1909/25/2022 urina lysis , dipst ick Unknown Analyte 15 mg/dL Not Available vamsi alicia [address], [place], [address], 09/25/2022 08:38:49 09/26/1909/25/2022 urina lysis , dipst ick Unknown Analyte 1.015 Not Available sacha [address], [place], [address], 09/25/2022 08:38:49 09/26/19 23 09/25/2022 urina lysis , dipst ick Unknown Analyte Negati ve Not Available vamsi alicia [address], [place], [address], 09/25/2022 08:38:49 09/26/1909/25/2022 urina lysis , dipst ick Unknown Analyte 6.0 Not Available sacha [address], [place], [address], 09/25/2022 08:38:49 09/26/1909/25/2022 urina lysis , dipst ick Unknown Analyte 30 mg/dL Not Available vamsi alicia [address], [place], [address], 09/25/2022 08:38:49 09/26/1909/25/2022 urina lysis , dipst ick Unknown Analyte >=8.0 E.U./d L Not Available vamsi alicia [address], [place], [address], 09/25/2022 08:38:49 09/26/1909/25/2022 urina lysis , dipst ick Unknown Analyte Negati ve Not Available vamsi alicia [address], [place], [address], 09/25/2022 08:38:49 09/26/19 23 09/25/2022 urina lysis , dipst ick Unknown Analyte Negati ve Not Available vamsi alicia [address], [place] [address], 09/25/2022 08:38:49 Result Notes None recorded. Problems Name Problem SNOMED Code Status Onset Date Resolution Date Notes Provider Name and Address Organization Details Recorded Time Degeneration of intervertebral disc 05173716 Active 2022 HENOK [facility] 3 08:36:07 Gastroesophage al reflux disease 909648144 Active 2022 HENOK Patterson [facility] 3 [...] Updated DateTime 3 177.8 cm 25.8 kg/m2 06423.6 3 g 95 % 95 % 79 [...] SNOMED-CT Code Diagnosis ICD10 Code Diagnosis Note [id number] [place] [address]_[facility] [address] [place] [address] 09/25/2022 08:12:41 09/25/2022 09:02:39 Acute urinary tract infection 012436290 N39.0 Health Concerns Section Related Observation LastModified by Organization Detai ls LastModified Time None Recorded Concern Status LastModified by Organization Details LastModified Time None Recorded Advance Directives Directive None Recorded Payers Encounter Date Sequence Insurance Name Policy Number Policy Vences Covered Member ID Vences Member ID Guarantor Name 09/25/2022 1 [facility] - HEALTH NET PLAN (MEDICAID HMO) EASTON Miller [id number] Tho Miller Notes Date Note Type Note [...] Dayne Christensen NP [address] [place], [address], [place] - [facility] 09/25/2022 08:58:38
--- OUTSIDE RECORDS SUMMARY | 2024-06-08 11:22 | XMS_ITS | Encounter Summary ---
Author Organization [facility] Address [address] [place] [address] Care Team Providers Care Rapid Extractor Operator Name Role Phone Gulshan Chanel Primary Care Provider [phone]- [phone] Encounter Details Date Type Department Care Team (Late st Contact Info) Description 06/06/2024 Orders Only [facility] Transplant Department [address] [place] [address] Angela Weaver RN Alcoholic cirrhosis of liver with ascites (Primary Dx); Awaiting organ transplant Social History Tobacco Use Types Packs/Day Years [...] Info) Description 06/11/2024 10:30 AM EDT Follow-Up [facility] Liver Transplant Services [address] [place] [address] Nathan Ortiz MD [address] [place] [address] 06/11/2024 11:00 AM EDT Clinical Support [facility] Liver Transplant Services [address] [place] [address] Scheduled Orders Name Type Priority Associated Diagnoses Orde r Schedule Protime-INR Lab Routine Alcoholic cirrhosis of liver with ascites Awaiting organ transplant Expected: 06/06/2024, Expires: 06/06/2025 CBC Auto Differential Lab Routine Alcoholic cirrhosis of liver with ascites Awaiting organ transplant Expected: 06/06/2024, Expires: 06/06/2025 Comprehensive Metabolic Panel Lab Routine Alcoholic cirrhosis of liver with ascites Awaiting organ transplant Expected: 06/06/2024, Expires: 06/06/2025 [facility] and RH Type Lab Routine Alcoholic cirrhosis of liver with ascites Awaiting organ transplant Expected: 06/06/2024, Expires: 06/06/2025 phophatidylethanol (PETH) - Miscellaneous Test Lab Routine Alcoholic cirrhosis of liver with ascites Awaiting organ transplant Expected: 06/06/2024, Expires: 06/06/2025 Coccidioides Antibodies (IgG , IgM) Immunodiffusion - Miscellaneous Test Lab Routine Alcoholic cirrhosis of liver with ascites Awaiting organ transplant Expected: 06/06/2024, Expires: 06/06/2025 documented as of this encounter Visit Diagnoses Diagnosis Alcoholic cirrhosis of liver with ascites (HCC)- Primary Awaiting organ transplant Awaiting organ transplant status documented in this encounter Care Teams Rapid Extractor Operator Relationship Specialty Start Date End Date Gulshan Chanel: [phone] [address] [place] [address] PCP - General 04/17/24 documented as of this encounter
--- OUTSIDE RECORDS SUMMARY | 2024-06-08 11:22 | XMS_ITS | Encounter Summary ---
Author Organization [facility] Address [address] [place] [address] Care Team Providers Care Bean Snipper Name Role Phone Gulshan Chanel Primary Care Provider +1 [phone] Reason for Visit * Transplant (Routine) - Authorized Specialty Diagnoses / Procedures Referred By Billy younger Referred To Contact Transplant Diagnoses Liver Transplant Evaluation Erin Allen MD [address] [facility] [address] [place] [address] Phone: tel: fax: [facility] Liver Transplant Services [address] [place] [address] Phone: tel: fax: Referral ID Status Reason Start Date Expiration Date V isits Requested Visits Authorized [id number] Authorized 03/15/2024 03/16/2025 99 99 Encounter Details Date Type Department Care Team ([facility] st Contact Info) Description 05/11/2024 1:00 PM EST Office Visit [facility] Transplant Services [address] [place] [address] Nathan Ortiz MD [address] [place] [address] Encounter for pre-transplant evaluation for chronic liver [...] 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 He was alert and [...] Info) Description 06/11/2024 10:30 AM EDT Follow-Up [facility] Transplant Services [address] [place] [address] Nathan Ortiz MD [address] [place] [address] 06/11/2024 11:00 AM EDT Clinical Support [facility] Transplant Services [address] [place] [address] documented as of this encounter Visit Diagnoses Diagnosis Encounter for pre-transplant evaluation for chronic liver disease- Primary documented in this encounter Care Teams Bean Snipper Relationship Specialty Start Date End Date Gulshan Chanel: [phone] [address] [place] [address] PCP - General 04/17/24 documented as of this encounter
--- OUTSIDE RECORDS SUMMARY | 2024-06-08 11:22 | XMS_ITS | Encounter Summary ---
Author Organization [facility] Address [address] [place] [address] Care Team Providers Care Beverage Manager Name Role Phone Gulshan Chanel Primary Care Provider +1- [phone] Encounter Details Date Type Department Care Team (Late st Contact Info) Description 05/16/2024 Results Follow-Up [facility] Liver Transplant Services [address] [place] [address] Angela Weaver RN Social History Tobacco Use [...] Description 06/11/2024 10:30 AM EDT Follow-Up [facility] Liver Transplant Services [address] [place] [address] Nathan Ortiz MD [address] [place] [address] 06/11/2024 11:00 AM EDT Clinical Support [facility] Liver Transplant Services [address] [place] [address] documented as of this encounter Visit Diagnoses Not on filedocumented in this encounter Care Teams Beverage Manager Relationship Specialty Start Date End Date Gulshan Chanel [address] [place] [address] PCP - General 04/17/24 documented as of this encounter
--- OUTSIDE RECORDS SUMMARY | 2024-06-08 11:22 | XMS_ITS | Encounter Summary ---
Author Organization [facility] Address [address] [place] [address] Care Team Providers Care Parent Partner Name Role Phone Gulshan Chanel Primary Care Provider +1 [phone] Reason for Visit * Transplant (Routine) - Authorized Specialty Diagnoses / Procedures Referred By Billy younger Referred To Contact Transplant Diagnoses Liver Transplant Evaluation Erin Allen MD [address] [facility] [address] [place] [address] Phone: tel: fax: [facility] Liver Transplant Services [address] [place] [address] Phone: tel: fax: Referral ID Status Reason Start Date Expiration Date V isits Requested Visits Authorized [id number] Authorized 03/15/2024 03/16/2025 99 99 Encounter Details Date Type Department Care Team ([facility] st Contact Info) Description 05/11/2024 12:15 PM EST Social Work [facility] Liver Transplant Services [address] [place] [address] Radha Garcia, [address] Transplant Services [address] [address] Social History Tobacco Use Types Packs/Day Years [...] encounter Progress Notes * Radha NullSolitario Garcia, [facility] - 05/11/2024 12:15 PM EST INITIAL LIVER TRANSPLANT PSYCHOSOCIAL EVALUATION Identifying information/referral information: Patient is a 54-year-old male who is here with his Bella and her service dog Lisa for an initial psychosocial evaluation for liver transplant. Patient was informed of the role of transplant forensic social worker, purpose of the evaluation and contact information given. Patient reports the cause of his liver disease is drinking whiskey . He reports he was first told about his liver disease around January 2023. 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 Social history: Patient and his Bella live in a hotel in [place]. They have been their since the beginning of February 2024. Patient and his have been together for 25 years but have been for 7 years. Patient has 1 adult daughter who he does not have any contact with. Prior to living in the hotel patient reports he was living at [facility] nursing and rehab facility in [place] [facility]. Patient reports this facility closed February 26 due to substandard conditions and subsequently patienthas been in the hotel since then. Patient explains he was at [facility] nursing and rehab facility for about a year. During this time, his was staying with her sister in [place]. Prior to being a [facility] patient states he was homeless for a while and was staying with friends and hotels. Patient was born in [place] and raised in [place]. Patient has 2 brothers. One brother lives in [place] and another brother lives in [place]. He is estranged from his brother wholives in [place]. He speaks with his brother Lucas who lives in [place]. Patient has 2 sisters,one is and the other he is estranged from. Patient's mother is 92 years old and [place] [facility]. Patient's father when patient was 10 years old. Patient completed high school and has some college credits. Patient reports he spent 6 years in the [employer]. He was not deployed. Patient reports he last worked in 2022. 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 Patient's interest include flying planes, skiing and waterskiing. He also enjoys backpacking,camping and horseback riding. Patient's christianity is Spiritism. Financial history: Patient reports he is on [...] confirmation that she no longer lives in [place] so can apply for DTA including bob [...] is Medicare part A and B and [address] [employer] standard. Transplant SW educated patient about the importance of notifying the transplant program and of any problems or changes in his insurance to ensure proper coverage for transplant, posttransplant follow-up and posttransplant medications. Support system: Patient has a class c driver's license but reports he does not have a vehicle. Patient relies on [address] [employer]/PT 1 transportation to get to medical appointments. [...] alternate support, states she has family in [place] and [place] that may be able to provide support. When transplant SW asked about alternate housing should he no longer be able to afford the hotel, patient states that they have friends or 's family that they could stay with. Substance use/substance treatment: Patient denies any current use of alcohol. Patient reports he last drank January 2023 when he was hospitalized at [facility] and diagnosed with liver disease. Following that hospitalization [facility]was [facility] [place] [place]. Patient reports he used to drink a [...] of applying for housing and informed of [place] application which is a universal application where [...] chose his Bella Miller as his healthcare proxy([phone]). 3. Patient completed a release of information [...] Description 06/11/2024 10:30 AM EDT Follow-Up [facility] Transplant Services [address] [place] [address] Nathan Ortiz MD [address] [place] [address] 06/11/2024 11:00 AM EDT Clinical Support [facility] Transplant Services [address] [place] [address] documented as of this encounter Visit Diagnoses Not on filedocumented in this encounter Care Teams Parent Partner Relationship Specialty Start Date End Date Guslhan Chanel [address] [place] [address] PCP - General 04/17/24 documented as of this encounter
--- OUTSIDE RECORDS SUMMARY | 2024-06-08 11:22 | XMS_ITS | Encounter Summary ---
Author Organization [facility] Address [address] [place] [address] Care Team Providers Care Surgical Services Tech Name Role Phone Gulshan Chanel Primary Care Provider [phone]- [phone] Reason for Visit * MRI/CAT/PET Scan (Routine) - Closed Specialty Diagnoses / Procedures Referred By Billy younger Referred To Contact Diagnoses Encounter for pre-transplant evaluation for liver transplant Procedures CT 3 Phase Liver Mass With Pelvis Yunior Pérez MD [address] [place] [address] Phone: tel: fax: Referral ID Status Reason Start Date Expiration Date Visits Re quested Visits Authorized [id number] Closed 04/17/2024 10/17/2025 1 1 Encounter Details Date Type Department Care Team (Latest Contact Info) Description 05/11/2024 10:28 AM EST - 05/11/2024 11:59 PM EST Hospital Encounter [facility] CT Scan [address] [place] [address] Yunior Pérez MD [address] [place] [address] Discharge Disposition: Home or Self Care () [...] by mouth 2 (two) times a day. 11870 mL 3 05/11/2024 furosemide (LASIX) 40 mg tablet 03/29/2024 gabapentin (NEURONTIN) 300 mg capsule 03/29/2024 ibuprofen (MOTRIN) 800 mg tablet 03/29/2024 lactulose 10 gram/15 mL solution SMARTSI Milliliter(s ) By Mouth Twice Daily 03/12/2024 magnesium oxide 250 mg magnesium tablet Take 250 mg by mouth once a day. 04/24/2024 fadnwks-VBQQ-izj-nelson er-hops-lm 0.35-35-328-200 mg capsule 5 mg. 10/11/2023 omeprazole (PriLOSEC) [...] Info) Description 06/11/2024 10:30 AM EDT Follow-Up [facility] Liver Transplant Services [address] [place] [address] [phone] Nathan Ortiz MD [address] [place] [address] 06/11/2024 11:00 AM EDT Clinical Support [facility] Liver Transplant Services [address] [place] [address] documented as of this encounter Procedures * Due to [place] state law, this organization might not be [...] 10-200 mL 10-200 mL, intravenous, Once, On Tue05/11/24 at 1045, 1 dose, Imaging Protocol Orders Given 05/11/2024 10:44 AM EST 100 mL documented in this encounter Care Teams Surgical Services Tech Relationship Specialty Start Date End Date Gulshan Chanel [address] [place] [address] PCP - General 04/17/24 documented as of this encounter
--- OUTSIDE RECORDS SUMMARY | 2024-06-08 11:22 | XMS_ITS | Encounter Summary ---
Author Organization [facility] Address [address] [place] [address] Care Team Providers Care Patch Press Operator Name Role Phone Gulshan Chanel Primary Care Provider +1- [phone] Encounter Details Date Type Department Care Team (Late st Contact Info) Description 04/17/2024 Orders Only [facility] Nuclear Medicine [address] [place] [address] Nurys Rutherford MD [address] [place] [address] Social History Tobacco Use Types Packs/Day Years [...] EDT Follow-Up [facility] Liver Transplant Services [address] [place] [address] Nathan Ortiz MD [address] [place] [address] 06/11/2024 11:00 AM EDT Clinical Support [facility] Liver Transplant Services [address] [place] [address] documented as of this encounter Visit Diagnoses Not on filedocumented in this encounter Care Teams Patch Press Operator Relationship Specialty Start Date End Date Gulshan Chanel [address] [place] [address] PCP - General 04/17/24 documented as of this encounter
--- OUTSIDE RECORDS SUMMARY | 2024-06-08 11:22 | XMS_ITS | Encounter Summary ---
Author Organization [facility] Address [address] [place] [address] Care Team Providers Care Rockboard Lather Name Role Phone Gulshan Chanel Primary Care Provider +[phone]- [phone] Reason for Visit * Transplant (Routine) - Authorized Specialty Diagnoses / Procedures Referred By Billy younger Referred To Contact Transplant Diagnoses Liver Transplant Evaluation Erin Allen MD [address] [facility] [address] [place] [address] Phone: tel: fax: [facility] Liver Transplant Services [address] [place] [address] Phone: tel: fax: Referral ID Status Reason Start Date Expiration Date V isits Requested Visits Authorized [id number] Authorized 03/15/2024 03/16/2025 99 99 Encounter Details Date Type Department Care Team (Late st Contact Info) Description 05/11/2024 1:45 PM EST Nutrition [facility] Liver Transplant Services [address] [place] [address] [address] [facility] R.[place], [place] Encounter for pre-transplant evaluation for liver transplant [...] as of this encounter Progress Notes * Naina He, RD - 05/11/2024 4:04 PM EST [facility] Transplant Nutrition Age / Gender: 54 y.o. 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 Oral nutrition supplement: Prescribed Boost Plus twice daily, but patient wasn't drinking it. He stated that he had been getting a protein powder from [facility] which he didn't tolerate, so he wanted to goback to the Boost Plus. Transplant Pharmacy Liaison called his pharmacy and requested a new prescription. Chewing / swallowing issues affecting intake: poor dentition - missing teeth Meal planning / grocery shopping / preparation: Meals from outside home frequency: They get take out once or twice per week. Food Allergies; Intolerance: none known 24-hour Recall: Breakfast: eggs and steak or sausage or oatmeal with toast with jelly or peanut butter Lunch: leftovers; Spaghettios, hot dogs or Ramen noodles Dinner: hamburger, chicken or pasta, salad Snacks/desserts: chips and dip; peanuts; Twinkie, carrots Beverages: orange juice, coffee approximately 2 to 3 times per week with 1 tsp sugar and milk Pertinent Labs 05/11/24: sodium 127, potassium 4.5, BUN 16, creatinine 1.16, glucose 105, albumin 3.8, T bili 1.5, cholesterol 142, triglycerides 82, HDL 71, LDL 55, zinc 45 Vitamin D 05/11/24: 13 - low Vitamin A 05/11/24: 15 - low Pertinent Medications Tho has a current medication list which includes the following prescription(s): albuterol, boost plus, furosemide, gabapentin, ibuprofen, lactulose, magnesium oxide, pbxmtkr-pwtj-rvg-mxgvq-siqj-eh, omeprazole, ondansetron odt, potassium chloride er, ropinirole, spironolactone, thiamine hcl, tramadol, and vitamin b complex. Vitamins and Minerals Mag-ox, potassium chloride, thiamine, vitamin B complex Food & Drug Interaction(s): n/a Cultural, Ethnic, Moravian Restrictions: None reported Social: Resides in a hotel Tobacco: quit smoking cigarettes a couple of months ago Alcohol: denies current use Recreational drug: marijuana Anthropometrics Height: 69 inches Weight: 169 lb 8.5 oz (05/11/24); lowest weight 154 lb one month ago; see below Usual body weight (UBW): 185-190 lb - 1 year ago Body Mass Index: 25 kg/m2 BMI = overweight Wt Readings from Last 10 Encounters: 05/11/24 76.9 kg (169 lb 8.5 oz) 05/11/24 70 kg (154 lb 5.2 oz) 04/17/24 70 kg (154 lb 5.2 oz) Based on report of 185 lb one year ago, he experienced a 31 lb or 17% weight loss in one year, which is below significant (20% in one year); he has subsequently regained 15 lb which is not due to fluid according to physical exam. Nutrition-Focused Physical Exam Integumentary/Skin: no rashes, lesions, ulcers on exposed skin Muscle mass: temporal muscle loss Fluid accumulation: no ascites or pedal edema per MD note Physical activity: He has been lifting weights for resistance exercise every other day. He used to arm wrestle. FRAIL score: 3/5 indicates frailty due to reports feels fatigued most of the time; difficulty walking one block and weight loss Liver Frailty Index: 3.41 indicates pre-frailty Hand asset coordinator: average 54 kg is 1.99 kg above normative asset coordinator strength for age, gender, and hand used Assessed Nutrient Needs Estimated Energy Needs: 3557-1840 calories per day based on 25-30 calories per kg Estimated Protein Needs: 90-95 grams protein per day based on 1.2 grams protein per kg Nutrition Diagnosis Food and nutrition related knowledge deficit related to post transplant nutrition guidelines as evidenced by pre-transplant evaluation status. Excessive sodium intake due to canned pasta, processed meat (hot dogs) and packaged noodles as evidenced by food recall. Nutrition Goal(s) Patient will verbalize a basic understanding of pre and post-transplant nutrition guidelines and the importance of compliance to optimize surgical outcome and prevent food borne illness. Patient will limit processed meat and canned pasta intake. Patient will avoid use of the flavor packet when consuming packaged noodles. Nutrition Interventions Meals and Snacks: high protein, 2 grams sodium meal pattern Oral Nutrition Supplements: Boost Plus twice daily Vitamins and Minerals: Mag-ox, KCl, thiamine, vitamin B complex; add vitamin D, vitamin A, and zinc Nutrition related medication: ondansetron Physical Activity: continue with resistance exercise on most days of the week; increase repetitions Nutrition Education: Verbal and written education provided regarding pre and post-transplant nutrition guidelines. Coordination of Care: Patient???s candidacy for listing for transplant will be discussed at the multi-disciplinary Selection Committee Meeting. Monitoring & Evaluation Energy and protein intake: food recall or record indicates adequacy Adherence: food recall or record indicates adherence with prescribed therapeutic diet Weight: minimize fluctuations resulting from fluid accumulation and / or loss of lean muscle mass Electrolyte and Renal Profile: electrolytes within acceptable limits Glucose and Endocrine Profile: glucose within acceptable limits Gastrointestinal Profile: function; LFTs Vitamin Profile: check for correction of vitamin D, vitamin A, and zinc levels in 2 months Lipid Profile: per MD Food & Nutrition Knowledge: understanding Physical Activity: type; intensity; frequency; duration Nutrition-Focused Physical Exam: skin, edema, muscle mass, fat mass Level of understanding: verbalized understanding Readiness for education: acceptance Summary: BMI: 25 - overweight Malnutrition diagnosis: no Significant weight changes: Based on report of 185 lb one year ago, he experienced a 31 lb or 17% weight loss in one year, which is below significant (20% in one year); he has subsequently regained 15 lb which is not due to fluid according to physical exam. Intake adequacy: adequate based on food recall Functional capacity: FRAIL score: 3/5 indicates frailty due to reports feels fatigued most of the time; difficulty walking one block and weight loss Liver Frailty Index: 3.41 indicates pre-frailty Skin integrity: no rashes, lesions or ulcers on exposed skin Vitamin / mineral status: prescribed Mag-ox, KCl, thiamine, vitamin B complex; add vitamin D, vitamin A, and zinc [facility] Nutrition Prioritizing Tool Score: 0 - low risk From a nutrition perspective, the patient is an acceptable candidate. Follow up: Provided my contact information if the patient or family have further nutrition questions. Thank you for involving me in this patient's care. Naina Rightmyer RDN, LDN, CCTD Transplant Dietitian documented in this encounter Plan of Treatment Upcoming Encounters Date Type Department Care Team (Late st Contact Info) Description 06/11/2024 10:30 AM EDT Follow-Up [facility] Liver Transplant Services [address] [place] [address] Nathan Ortiz MD [address] [place] [address] 06/11/2024 11:00 AM EDT Clinical Support [facility] Liver Transplant Services [address] [place] [address] documented as of this encounter Visit Diagnoses Diagnosis Encounter for pre-transplant evaluation for liver transplant- Primary documented in this encounter Care Teams Rockboard Lather Relationship Specialty Start Date End Date Gulshan Chanel [address] [place] [address] PCP - General 04/17/24 documented as of this encounter
--- OUTSIDE RECORDS SUMMARY | 2024-06-08 11:22 | XMS_ITS | Encounter Summary ---
Author Organization [facility] Address [address] [place] [address] Care Team Providers Care Radioisotope Production Operator Name Role Phone Gulshan Chanel Primary Care Provider [phone] Encounter Details Date Type Department Care Team (Late st Contact Info) Description 05/16/2024 Telephone [facility] Transplant Department [address] [place] [address] [phone] Angela Weaver RN Social History Tobacco Use [...] Info) Description 06/11/2024 10:30 AM EDT Follow-Up [facility] Liver Transplant Services [address] [place] [phone] Nathan Ortiz MD [address] [place] [address] 06/11/2024 11:00 AM EDT Clinical Support [facility] Liver Transplant Services [address] [place] [address] documented as of this encounter Visit Diagnoses Not on filedocumented in this encounter Care Teams Radioisotope Production Operator Relationship Specialty Start Date End Date Gulshan Chanel [address] [place] [address] PCP - General 04/17/24 documented as of this encounter
--- OUTSIDE RECORDS SUMMARY | 2024-06-08 11:22 | XMS_ITS | Encounter Summary ---
Author Organization [facility] Address [address] [place] [address] Care Team Providers Care Family Member Caretaker Name Role Phone Gulshan Chanel Primary Care Provider [phone] Reason for Visit * Reason Comments Liver Eval * Transplant (Routine) - Authorized Specialty Diagnoses / Procedures Referred By Billy younger Referred To Contact Transplant Diagnoses Liver Transplant Evaluation Erin Allen MD [address] [facility] [address] [place] [address] Phone: tel: fax: [facility] Liver Transplant Services [address] [place] [address] Phone: tel: fax: Referral ID Status Reason Start Date Expiration Date V isits Requested Visits Authorized [id number] Authorized 03/15/2024 03/16/2025 99 99 Encounter Details Date Type Department Care Team (Late st Contact Info) Description 05/11/2024 11:45 AM EST Office Visit [facility] Liver Transplant Services [address] [place] [phone] Evelyn Barr RN Awaiting organ transplant (Primary [...] Info) Description 06/11/2024 10:30 AM EDT Follow-Up [facility] Liver Transplant Services [address] [place] [address] Nathan Ortiz MD [address] [place] [address] 06/11/2024 11:00 AM EDT Clinical Support [facility] Liver Transplant Services [address] [place] [address] documented as of this encounter Visit Diagnoses Diagnosis Awaiting organ transplant- Primary Awaiting organ transplant status documented in this encounter Care Teams Family Member Caretaker Relationship Specialty Start Date End Date Gulshan Chanel [address] [place] [address] PCP - General 04/17/24 documented as of this encounter
--- OUTSIDE RECORDS SUMMARY | 2024-06-08 11:22 | XMS_ITS | Encounter Summary ---
Author Organization [facility] Address [address] [place] [address] Care Team Providers Care Unarmed Security Officer Name Role Phone Gulshan Chanel Primary Care Provider [phone] Reason for Visit * Cardiac Diagnostic Testing [...] COLOR AND CONTRAST Yunior Pérez MD [address] [place] [address] Phone: tel: fax: Referral ID Status Reason Start Date Expiration Date Visits Re quested Visits Authorized [id number] Closed 04/17/2024 10/17/2025 1 1 Encounter Details Date Type Department Care Team (Latest Contact Info) Description 05/11/2024 8:35 AM EST - 05/11/2024 10:27 AM [facility] Hospital Encounter [facility] Cardiac Ultrasound [address] [place], [place] [phone] Yunior Pérez MD [address] [place] [address] Discharge Disposition: Home or Self Care () [...] mg by mouth once a day. 04/24/2024 [id number] er-[id number] [id number] mg capsule 5 mg. 10/11/2023 omeprazole (PriLOSEC) [...] Info) Description 06/11/2024 10:30 AM EDT Follow-Up [facility] Liver Transplant Services [address] [place] [address] Nathan Ortiz MD [address] [place] [address] 06/11/2024 11:00 AM EDT Clinical Support [facility] Liver Transplant Services [address] [place] [address] documented as of this encounter Procedures * Due to [facility] law, this organization might not be sharing negative HIV tests. Procedure Name Priority Date/Time Associated Diagnosis Comments TRANSTHORACIC ECHO (TTE) COMPLETE Routine 05/11/2024 9:00 AM EST Encounter for pre-transplant evaluation for liver transplant documented in this encounter Results * Due to [place] [employer] law, this organization might not be sharing [...] BSA 1.85 RIGHT ATRIAL PRESSURE 3 mmHg [facility] RV TISSUE DOPPLER S' 12.0 [...] Myocardial deformation imaging was performed using [employer]. During the study the apical, parasternal, subcostal and suprasternal view was captured. Overall the study quality was adequate. Prior Study No prior study available for comparison. STRESS ECHO OVERALL FINDINGS Normal RV size and systolic function. No significant valvular disease identified. Yunior Pérez MD CV ECHO PROCEDURES Final Result documented in this encounter Visit Diagnoses Not on filedocumented in this encounter Care Teams Unarmed Security Officer Relationship Specialty Start Date End Date Gulshan Chanel [address] [place] [address] PCP - General 04/17/24 documented as of this encounter
--- OUTSIDE RECORDS SUMMARY | 2024-06-08 11:22 | XMS_ITS | Encounter Summary ---
Author Organization [facility] Address [address] [place] [address] Care Team Providers Care Printed Circuit Boards Pinner Name Role Phone Gulshan Chanel Primary Care Provider [phone]- [phone] Reason for Referral * Cardiac Diagnostic Testing [...] DOPPLER, COLOR AND CONTRAST Carolin Pleitez MD [address] [place] [address] Phone: tel: fax: Referral ID Status Reason Start Date Expiration Date Visits Re quested Visits Authorized [id number] Closed 04/17/2024 10/17/2025 1 1 * Cardiac Diagnostic Testing (Routine) - Authorized Specialty Diagnoses / Procedures Referred By Billy younger Referred To Contact Diagnoses Encounter for pre-transplant evaluation for liver transplant Procedures ECG 12 lead Carolin Pleitez MD [address] [place] [address] Phone: tel: fax: Referral ID Status Reason Start Date Expiration Date V isits Requested Visits Authorized [id number] Authorized 04/17/2024 10/17/2025 1 1 * MRI/CAT/PET Scan (Routine) - Closed Specialty Diagnoses / Procedures Referred By Billy younger Referred To Contact Diagnoses Encounter for pre-transplant evaluation for liver transplant Procedures CT 3 Phase Liver Mass With Pelvis Carolin Pleitez MD [address] [place] [address] Phone: tel: fax: Referral ID Status Reason Start Date Expiration Date Visits Re quested Visits Authorized [id number] Closed 04/17/2024 10/17/2025 1 1 * MRI/CAT/PET Scan (Routine) - Closed Specialty Diagnoses / Procedures Referred By Billy younger Referred To Contact Diagnoses Encounter for pre-transplant evaluation for liver transplant Procedures CT CHEST W CONTRAST Carolin Pleitez MD [address] [place] [phone] Phone: tel: fax: Referral ID Status Reason Start Date Expiration Date Visits Re quested Visits Authorized [id number] Closed 04/17/2024 10/17/2025 1 1 Reason for Visit * Transplant (Routine) - Authorized Specialty Diagnoses / Procedures Referred By Billy younger Referred To Contact Transplant Diagnoses Liver Transplant Evaluation Erin Allen MD [address] [facility] [address] [place] [address] Phone: tel: fax: [facility] Liver Transplant Services [address] [place] [address] Phone: tel: fax: Referral ID Status Reason Start Date Expiration Date V isits Requested Visits Authorized [id number] Authorized 03/15/2024 03/16/2025 99 99 Encounter Details Date Type Department Care Team (Late st Contact Info) Description 04/17/2024 12:00 PM EST Evaluation [facility] Liver Transplant Services [address] [place] [address] Angela Weaver RN Encounter for pre-transplant evaluation [...] written and audiovisual materials. Patient viewed the [facility] Liver Transplant Education Video and had [...] about Multiple Listing and Waiting Time Transfer -[facility] transplant outcomes from [facility] released on 03/27/2024 -[facility] Liver Transplant Initial Consent for Evaluation -Information for Transplant Patients: Viral Infections and Increased Risk Donors -Business card with contact information for supply chain coordinator and other bridge/structure inspection team leader contact information. -Authorization for verbal communications -Authorization [...] Info) Description 06/11/2024 10:30 AM EDT Follow-Up [facility] Liver Transplant Services [address] [place] [address] Nathan Ortiz MD [address] [place] [address] 06/11/2024 11:00 AM EDT Clinical Support [facility] Liver Transplant Services [address] [place] [address] Scheduled Orders Name Type Priority Associated Diagnoses Orde r Schedule ECG 12 lead ECG Routine Encounter for pre-transplant evaluation for liver transplant 1 Occurrences starting 04/17/2024 until 04/17/2025 documented as of this encounter Procedures * Due to [place] [employer] law, this organization might not be sharing [...] in this encounter Results * Due to [place] [employer] law, this organization might not be sharing [...] obtain the completed interpretation. ? Workstation ID: [id number] Up-to-date CT equipment and radiation dose reduction techniques were employed. CTDIvol: 3.0 - 14.6 mGy. DLP: 1699 mGy-cm. ??The following accession numbers are related to this dose report [id number]: [id number] [facility] 05/14/2024 7:59 PM EST EXAMINATION: CT [...] image 107 series 10. Resulting Agency Comment [id number] Procedure Note Christen Aviles MD - 05/14/2024 [...] possible to obtain thecompleted interpretation. Workstation ID: [id number] Up-to-date CT equipment and radiation dose reduction techniques wereemployed. CTDIvol: 3.0 - 14.6 mGy. DLP: 1699 mGy-cm. The followingaccession numbers are related to this dose report [id number]: [id number] Carolin Pleitez MD IMG CT PROCEDURES Final [...] obtain the completed interpretation. ? Workstation ID: [id number] Up-to-date CT equipment and radiation dose reduction techniques were employed. CTDIvol: 3.0 - 14.6 mGy. DLP: 1699 mGy-cm. ??The following accession numbers are related to this dose report [id number]: [id number] Narrative 05/17/2024 4:11 PM EST Indication: ??pre [...] vertebral disease. Bilateral gynecomastia. Resulting Agency Comment [id number] Procedure Note Sidney Delatorre MD PhD - [...] possible to obtain thecompleted interpretation. Workstation ID: [id number] Up-to-date CT equipment and radiation dose reduction techniques wereemployed. CTDIvol: 3.0 - 14.6 mGy. DLP: 1699 mGy-cm. The followingaccession numbers are related to this dose report [id number]: [id number] Carolin Pleitez MD IM CT PROCEDURES Final [...] BSA 1.85 RIGHT ATRIAL PRESSURE 3 mmHg [facility] RV TISSUE DOPPLER S' 12.0 cm/s [...] Doppler. Myocardial deformation imaging was performed using [employer] [place]. During the study the apical, parasternal, subcostal [...] Primary documented in this encounter Care Teams Printed Circuit Boards Pinner Relationship Specialty Start Date End Date Christianmendez Gulshan García [address] [place] [address] PCP - General 04/17/24 documented as of this encounter
--- OUTSIDE RECORDS SUMMARY | 2024-06-08 11:22 | XMS_ITS | Encounter Summary ---
Author Organization [facility] Address [address] [place] [address] Care Team Providers Care Assignment Editor Name Role Phone Gulshan Chanel Primary Care Provider Encounter Details Date Type Department Care Team (Late st Contact Info) Description 05/09/2024 Telephone [facility] Transplant Department [address] [place] [address] Angela Weaver RN Social History Tobacco Use [...] Info) Description 06/11/2024 10:30 AM EDT Follow-Up [facility] [address] [place] [address] Nathan Ortiz MD [address] [place] [address] 06/11/2024 11:00 AM EDT Clinical Support [facility] [address] [place] [address] documented as of this encounter Results * Due to [place] state law, this organization might not be sharing negative HIV tests. * Comprehensive Drug Panel, Urine (05/11/2024 8:11 AM EST) Pathologist [facility] Comprehensive Drug Screen Urine DRUGS DETECTED 05/11/2024 2:55 PM EST [employer] Comment: NICOTINE GABAPENTIN COTININE CAFFEINE TRAMADOL AND METABOLITE Urine Voided urine specimen / Unknown Non-Blood Collection / Unknown 05/11/2024 8:11 AM EST 05/11/2024 8:16 AM EST [facility] - 05/11/2024 2:55 PM EST [facility] Received Date:[id number] Yunior Pérez MD LAB URINE ORDERABLES Fin al Result [facility] [address] [facility] [address], [place] [address], [employer] [employer] [facility] [address] [facility] [address], [place] [address], * PSA (05/11/2024 8:02 AM EST) Pathologist [facility] PSA 0.04 <=4.00 ng/mL 05/11/2024 8:53 AM EST [facility] CL[facility] PATHOLOG[facility] LABORATORY Comment: The total PSA [...] Fin al Result Performing Organization Address City/[facility] Co de Phone Number [facility] [address] [place] [address], * (ABNORMAL) Zinc (05/11/2024 8:02 AM EST) Zinc 45(L) 60 - 130 mcg/dL 05/15/2024 11:53 AM EST K[facility] LOYOLAERI (LAURA) Comment: This test was developed and its analytical performance characteristics have been determined by [employer] [place], [place]. It has not been cleared or [...] ORDERABLES Fin al Result Performing Organization Address [facility] de Phone Number KIMBERLY LITTLEJOHN (SANCHEZ) [address] [place], [place] , [place] * (ABNORMAL) Vitamin D, 25-Hydroxy, Total, Immunoassay (05/11/2024 8:02 AM EST) Calcidiol+ercalc idiol 13(L) 30 - 100 ng/mL 05/11/2024 11:52 AM EST [employer] Comment: Vitamin D Status ? 25-OH Vitamin D: Deficiency: ?<20 ng/mL Insufficiency: ? 20 - 29 ng/mL Optimal: ? > or = 30 ng/mL For 25-OH Vitamin D testing on patients on D2-supplementation and patients for whom quantitation of D2 and D3 fractions is required, the QuestAssureD(TM) 25-OH VIT D, (D2,D3), LC/MS/MS is recommended: order code 13841 (patients >2yrs). See Note 1 Note 1 For additional information, please refer to http://education.Recovr/faq/PDY115 (This link is being provided for informational/ educational purposes only.) Blood Structure of peripheral vein / Unknown Venipuncture / Unknown 05/11/2024 8:02 AM EST 05/11/2024 8:15 AM EST Narrative [facility] [place] - 05/11/2024 11:52 AM EST [facility] Received Date: Yunior Pérez MD LAB BLOOD ORDERABLES Fin al Result [facility] [address] [facility] [address], [place] [address], [employer] [facility] [address] [facility] [address], [place] [address], * (ABNORMAL) Vitamin A (Retinol) (05/11/2024 8:02 AM EST) [facility] Vitamin A (Retinol) 15(L) 38 - 98 mcg/dL 05/14/2024 11:11 PM EST KIMBERLY POND) Comment: Vitamin supplementation within 24 hours prior to blood draw may affect the accuracy of the results. This test was developed and its analytical performance characteristics have been determined by [employer] [place], [place]. It has not been cleared or approved by the U.S. Food and Drug Administration. This assay has been validated pursuant to the CLIA regulations and is used for clinical purposes. Blood Structure of peripheral vein / Unknown Venipuncture / Unknown 05/11/2024 8:02 AM EST 05/11/2024 8:10 AM EST Eriberto LITTLEJOHN (LAURA) - 05/14/2024 11:11 PM EST [facility] Received Date:[id number] us Yunior Pérez MD LAB BLOOD ORDERABLES Fin al Result KIMBERLY POND) [address] [place] [address], [place] * Varicella Zoster Antibody, IgG (05/11/2024 8:02 AM EST) Pathologist [facility] Varicella Zoster Virus Antibody 2.40 S/CO 05/11/2024 5:07 PM EST [employer] Comment: ?Signal to Cut-off ? S/CO ?Interpretation [...] - 05/11/2024 5:07 PM EST [facility] Received Date:[id number] us Yunior Pérez MD LAB BLOOD ORDERABLES Fin al Result [facility] IZQUIERDO [address] [facility] [address], [place] [address], [place] [phone] [employer] [facility] [address], [place] [address], [place] [phone] * Type and Screen (05/11/2024 8:02 AM [...] - Final [facility] [address] [place] [address], * TSH Reflex Free T4 (05/11/2024 8:02 AM EST) TSH 2.130 0.280 - 3.890 uIU/mL 05/11/2024 8:57 AM EST [facility] CLINICAL PATHOLOGY LABORATORY Blood Structure of peripheral vein / Unknown Venipuncture / Unknown 05/11/2024 8:02 AM EST 05/11/2024 8:15 AM EST us Yunior Pérez MD LAB BLOOD ORDERABLES Fin al Result [facility] [address] [place] [address], * Toxoplasma gondii Antibody, IgG (05/11/2024 8:02 AM EST) Toxoplasma Ab IgG <7.20 IU/mL 05/11/2024 9:20 PM EST [employer] Comment: ? IU/mL ?Interpretation ? ------ ? <7.20 ?Negative ? 7.20-8.79 ?Equivocal ? >8.79 ?Positive Blood Structure of peripheral vein / Unknown Venipuncture / Unknown 05/11/2024 8:02 AM EST 05/11/2024 8:13 AM EST Narrative [facility] - 05/11/2024 9:20 PM EST [facility] Received Date: Yunior Pérez MD LAB BLOOD ORDERABLES Fin al Result [facility] [place] [address] [facility] [address], [place] [address], [facility] [facility] [address] [facility] [address], [place] [address], * Smooth Muscle Antibody Screen w/Reflex to Titer (05/11/2024 8:02 AM EST) Smooth Muscle AB Screen NEGATIVE NEGATIVE 05/14/2024 3:03 PM EST [employer] Comment: The specimen was negative for cytoplasmic antibodies, however additional staining was observed suggesting the presence of Antinuclear Antibodies. Consider requesting order code 249, SHELLY Screen, IFA with Reflex to Titer and Pattern, or order code [id number], SHELLY Screen, IFA w/reflex Titer/Pattern, and Reflex to Multiplex 11 Ab Grant, if clinically indicated. Blood Structure of peripheral vein / Unknown Venipuncture / Unknown 05/11/2024 8:02 AM EST 05/11/2024 8:15 AM EST Narrative [facility] [place] - 05/14/2024 3:03 PM EST [facility] Received Date:[id number] us Yunior Pérez MD LAB BLOOD ORDERABLES Fin al Result [facility] [address], [place] [address], [place] [phone] [employer] [facility] [address], [place] [address], [place] [phone] * RPR (Diagnosis) w/Reflex to Titer & TPPA Confirm (05/11/2024 8:02 AM EST) RPR W/Refl Titer NON-REACT COLLINS NON-REACT COLLINS 05/11/2024 1:09 PM EST [facility] [employer] [facility] Blood Structure of peripheral vein / Unknown Venipuncture / Unknown 05/11/2024 8:02 AM EST 05/11/2024 8:15 AM EST Narrative [employer] [place] - 05/11/2024 1:09 PM EST [facility] Received Date:[id number] us Yunior Pérez MD LAB BLOOD ORDERABLES Fin al Result Performing Organization Address City/[facility]/ZIP Co de Phone Number [facility] [address] [facility] [address] [facility], [place] [address], [place] [phone] [employer] [facility] [address], [place] [address], * QuantiFERON-TB Gold Plus, 1 Tube (05/11/2024 8:02 AM EST) QuantiFERON-TB Gold Plus NEGATIVE NEGATIVE 05/14/2024 2:04 PM EST [facility] Comment: Negative test result. M. tuberculosis complex infection unlikely. NIL 0.01 IU/mL 05/14/2024 2:04 PM EST [facility] [employer] Mitogen-NIL 9.32 IU/mL 05/14/2024 2:04 PM EST [facility] [employer] TB1-NIL 0.00 IU/mL 05/14/2024 2:04 PM EST [facility] TB2-NIL 0.01 IU/mL 05/14/2024 2:04 PM EST [facility] Comment: The Nil tube value reflects [...] T-lymphocytes. For additional information, please refer to https://education.[employer]/faq/QQN064 (This link is being provided for informational/ educational purposes only.) Blood Structure of peripheral vein / Unknown Venipuncture / Unknown 05/11/2024 8:02 AM EST 05/11/2024 8:10 AM EST Narrative [facility] - 05/14/2024 2:04 PM EST [facility] Received Date: us Yunior Pérez MD LAB BLOOD ORDERABLES Fin al Result [facility] [place] [address] [facility] [address], [place] [address], [employer] [facility] [address] [facility] [address], [place] [address], * (ABNORMAL) PTT (05/11/2024 8:02 AM EST) [facility] aPTT 33.2(H) 23.0 - 32.0 Seconds 05/11/2024 9:04 AM EST [facility] CLINICAL PATHOLOGY LABORATORY Comment: Current PTT reagent is not sensitive to detect all Lupus Anticoagulant (LA) Inhibitor Cases. ?? If a LA is suspected, please order a Lupus Anticoagulation w/ Reflex Test which is performed at [facility] in [place], [place]. Blood Structure of peripheral vein / Unknown Venipuncture / Unknown 05/11/2024 8:02 AM EST 05/11/2024 8:13 AM EST Yunior Pérez MD LAB BLOOD ORDERABLES Fin al Result [facility] CLINICAL PATHOLOGY LABORATORY [address] [place] [address], * Protime-INR (05/11/2024 8:02 AM EST) PT 11.9 9.6 - 12.4 Seconds 05/11/2024 9:04 AM EST [email or web address] CL[facility]ICAL PATHOLOGY LABORATORY INR 1.1 0.9 - 1.1 05/11/2024 9:04 AM EST [email or web address] PATH[facility] LABORATORY Comment:The optimal therapeu tic INR range for patients treated with Vitamin K antagonists (VKAS, e.g., Warfarin) is 2.0 to 3.5. Discuss the desired range with your doctor/care team. Blood Structure of peripheral vein / Unknown Venipuncture / Unknown 05/11/2024 8:02 AM EST 05/11/2024 8:13 AM EST Yunior Pérez MD LAB BLOOD ORDERABLES Fin al Result [facility] CLINICAL PATHOLOGY LABORATORY [address] [place] [address], * Protein Electrophoresis w/Reflex to Immunofixation, Serum (05/11/2024 8:02 AM EST) Protein, Total 6.9 6.1 - 8.1 g/dL 05/11/2024 10:39 PM EST [employer] [employer] [facility] Albumin 3.8 3.8 - 4.8 g/dL 05/11/2024 10:39 PM EST [facility] [employer] [facility] Alpha 1 Globulin 0.3 0.2 - 0.3 g/dL 05/11/2024 10:39 PM EST [facility] [facility] Alpha 2 Globulin 0.6 0.5 - 0.9 g/dL 05/11/2024 10:39 PM EST [facility] [facility] Beta 1 Globulin 0.5 0.4 - 0.6 g/dL 05/11/2024 10:39 PM EST [facility] [facility] Beta 2 Globulin 0.3 0.2 - 0.5 g/dL 05/11/2024 10:39 PM EST [facility] [facility] Gamma Globulin 1.4 0.8 - 1.7 g/dL 05/11/2024 10:39 PM EST [facility] [facility] Interpretation See Comments 05/11/2024 10:39 PM EST [facility] [employer] [facility] Comment: Normal Serum Protein Electrophoresis Pattern. No abnormal protein bands (M-protein) detected. Blood Structure of peripheral vein / Unknown Venipuncture / Unknown 05/11/2024 8:02 AM EST 05/11/2024 8:14 AM EST [facility] - 05/11/2024 10:39 PM EST [facility] Received Date: Yunior Pérez MD LAB BLOOD ORDERABLES Fin al Result [facility] [address] [facility] [address], [place] [address], [employer] [facility] [address] [facility] [address], [place] [address], * Phosphorus (05/11/2024 8:02 AM EST) Phosphorus 3.2 2.5 - 4.5 mg/dL 05/11/2024 8:57 AM EST [facility] LAB[facility] Blood Structure of peripheral vein / Unknown Venipuncture / Unknown 05/11/2024 8:02 AM EST 05/11/2024 8:15 AM EST Yunior Pérez MD LAB BLOOD ORDERABLES Fin al Result [facility] LABORATORY [address] [place] [address], [place] * Phosphatidylethanol (PEth) (05/11/2024 8:02 AM [...] LABORATORY Comment: Authorized individuals can access the [facility] Enhanced Report with an [facility] Connect account using the following link. Your local lab can assist you in obtaining the patient report if you don't have a Connect account. [email or web address] PEth Interpretation See Comment 04/22 5:33 PM [...] developed and its performance characteristics determined by [facility]. It has not been cleared or approved by the U.S. Food and Drug Administration. This test was performed in a CLIA-certified laboratory and is intended for clinical purposes. Performed By: [facility] [address] [place], [place] [id number] Software Specialist: Yusuf Lomas MD, PhD CLIA Number: [id number] Blood Structure of peripheral vein / Unknown Venipuncture / Unknown 05/11/2024 8:02 AM EST 05/11/2024 8:15 AM EST Yunior Pérez MD LAB BLOOD ORDERABLES Fin al Result [place] [id number], * (ABNORMAL) MMR Panel, IgG (05/11/2024 8:02 AM EST) Pathologist [facility] Measles Antibody (IgG), Immune Status <13.50(L) AU/mL 05/11/2024 5:16 PM EST [employer] Comment: AU/mL ?Interpretation ----- ? <13.50 ? Not consistent with immunity 13.50-16.49 ?Equivocal >16.49 ? Consistent with immunity The presence of measles IgG suggests immunization or past or current infection with measles virus. For additional information, please refer to http://education.Recovr/faq/YGO097 (This link is being provided for informational/ educational purposes only.) Mumps Antibody (IgG), Immune Status <9.00(L) AU/mL 05/11/2024 5:16 PM EST [employer] Comment: AU/mL ? Interpretation ------- ? <9.00 ? Not consistent with immunity 9.00-10.99 ?Equivocal >10.99 ?Consistent with immunity The presence of mumps IgG antibody suggests immunization or past or current infection with mumps virus. Rubella Antibody (IgG), Immune Status <0.90(L) Index 05/11/2024 5:16 PM EST [employer] Comment: ?Index ?Interpretation ?----- ?<0.90 ?Not consistent [...] ORDERABLES Fin al Result [facility] IZQUIERDO [address] [facility] [address], [place] [address], [place] [phone] [employer] [employer] [address], [place] [address], [place] [phone] * Magnesium (05/11/2024 8:02 AM EST) MG 1.9 1.6 - 2.4 mg/dL 05/11/2024 8:57 AM EST [facility] CLINICAL PATHOLOGY LABORATORY Blood Structure of peripheral vein / Unknown Venipuncture / Unknown 05/11/2024 8:02 AM EST 05/11/2024 8:15 AM EST us Yunior Pérez MD LAB BLOOD ORDERABLES Fin al Result Performing Organization Address [facility] Co de Phone Number [facility]STOWNArig[facility] CLINICAL PATHOLOGY LABORATORY [address] [address], [place] * (ABNORMAL) Iron Saturation (05/11/2024 8:02 AM EST) Iron Saturation 6(L) 20 - 50 % 8:57 AM EST [facility] CLINICAL PATHOLOGY LABORATORY Iron 25(L) 45 - 160 ug/dL 05/11/2024 8:57 AM EST [facility] PATH[facility] LAB[facility]ORY Transferrin 316 200 - 360 mg/dL 05/11/2024 8:57 AM EST [employer] [facility] [facility] [employer] CLINICAL PATHOLOGY LABORATORY Total Iron Binding Capacity 395 255 - 450 ug/dL 05/11/2024 8:57 AM EST [facility] CLINICAL PATHOLOGY LABORATORY Blood Structure of peripheral vein / Unknown Venipuncture / Unknown 05/11/2024 8:02 AM EST 05/11/2024 8:15 AM EST us Yunior Pérez MD LAB BLOOD ORDERABLES Fin al Result Performing Organization Address [facility]/ZIP Co de Phone Number [email or web address] CLINICAL PATHOLOGY LABORATORY [address] [place] [address], [place] * (ABNORMAL) Herpes Simplex Virus 1&2, IgG (05/11/2024 8:02 AM EST) HSV 1 IgG Type Specific Ab <0.90 index 05/11/2024 9:20 PM EST [facility] [employer] [facility] HSV 2 IgG Type Specific Ab 1.66(H) index 05/11/2024 9:20 PM EST [facility] [employer] [facility] Comment: ?Index ?Interpretation ?----- ?<0.90 ?Negative ?0.90-1.09 ?Equivocal ?>1.09 ?Positive Low HSV-2 IgG positive results (index values between 1.10-3.00) may represent false positive results. CDC 2020 guidelines recommend confirmatory testing of samples with low-positive HSV-2 IgG results. If clinically indicated, consider adding on HSV-2 IgG Inhibition, by contacting [employer] [facility]. For additional information, please refer to: https://www.[employer]/healthcare- professionals/jkceqvht-pcxlwkazz-jmfkgr/faq/faq73 (This link is being provided for informational/ [...] screening. For additional information, please refer to http://education.Bumble Beez.Soup.io/faq/GCS327 (This link is being provided for informational/ educational purposes only.) ?? Blood Structure of peripheral vein / Unknown Venipuncture / Unknown 05/11/2024 8:02 AM EST 05/11/2024 8:13 AM EST Narrative [facility] - 05/11/2024 9:20 PM EST [facility] Received Date:[id number] us Yunior Pérez MD LAB BLOOD ORDERABLES Fin al Result Performing Organization Address City/[facility]/ZIP Co de Phone Number [facility] [address], [place] [address], [place] [phone] [employer] [facility] [address], [place] [address], [place] [phone] * Hepatitis C Antibody w/Reflex to PCR (05/11/2024 8:02 AM EST) Hepatitis C Antibody NON-REACT COLLINS NON-REACT COLLINS 05/11/2024 11:44 AM EST [facility] Comment: HCV antibody was non-reactive. There is no laboratory evidence of HCV infection. In most cases, no further action is required. However, if recent HCV exposure is suspected, a test for HCV RNA (test code 51862) is suggested. For additional information please refer to http://Equ[employer]on.[employer].Soup.io/faq/RWF05f7 (This link is being provided for informational/ educational purposes only.) Blood Structure of peripheral vein / Unknown Venipuncture / Unknown 05/11/2024 8:02 AM EST 05/11/2024 8:15 AM EST Narrative [facility] - 05/11/2024 11:44 AM EST [facility] Received Date:[id number] us Yunior Pérez MD LAB BLOOD ORDERABLES Fin al Result Performing Organization Address City/[facility]/ZIP Co de Phone Number [facility] [address], [place] [address], [place] [phone] [facility] [address] [facility] [address], [place] [address], * (ABNORMAL) Hepatitis B Surface Antibody (05/11/2024 8:02 AM EST) Pathologist [facility] Hepatitis B Surface Ab Immunity, Qn <5(L) > OR = 10 mIU/mL 05/11/2024 11:44 AM EST [facility] Comment: PATIENT DOES NOT HAVE IMMUNITY TO HEPATITIS B VIRUS. For additional information, please refer to http://Equiphon.[employer]/faq/OQD446 (This link is being provided for informational/ educational purposes only). Blood Structure of peripheral vein / Unknown Venipuncture / Unknown 05/11/2024 8:02 AM EST 05/11/2024 8:15 AM EST Narrative [facility] [place] - 05/11/2024 11:44 AM EST [facility] Received Date: Yunior Pérez MD LAB BLOOD ORDERABLES Fin al Result [facility] [address] [facility] [address], [place] [address], [employer] [facility] [address] [facility] [address], [place] [address], * Hepatitis B Surface Antigen w/Confirmation (05/11/2024 8:02 AM EST) Pathologist [facility] Hepatitis B Surface Antigen NON-REACT COLLINS NON-REACT COLLINS 05/11/2024 11:44 AM EST [facility] Comment: For additional information, please refer to http://Equiphon.[employer]/faq/BFQ477 (This link is being provided for informational/ educational purposes only.) Blood Structure of peripheral vein / Unknown Venipuncture / Unknown 05/11/2024 8:02 AM EST 05/11/2024 8:15 AM EST Narrative [facility] - 05/11/2024 11:44 AM EST [facility] Received Date:[id number] us Yunior Pérez MD LAB BLOOD ORDERABLES Fin al Result [facility] IZQUIERDO [address] [facility] [address] [facility], [address] [facility] [place] [address], [place] [phone] [employer] [facility] [address], [place] [address], [place] [phone] * Hepatitis B Core Antibody, Total (05/11/2024 8:02 AM EST) Hepatitis B Core Ab Total NON-REACT COLLINS NON-REACT COLLINS 05/11/2024 11:44 AM EST [facility] Comment: For additional information, please refer to http://Equiphon.[employer]/faq/OQB438 (This link is being provided for informational/ educational purposes only.) Blood Structure of peripheral vein / Unknown Venipuncture / Unknown 05/11/2024 8:02 AM EST 05/11/2024 8:15 AM EST [facility] - 05/11/2024 11:44 AM EST [facility] Received Date:[id number] us Yunior Pérez MD LAB BLOOD ORDERABLES Fin al Result Performing Organization Address City/[facility]/ZIP Co de Phone Number [facility] I[facility]QUIER[facility] [address], [place] [address], [place] [phone] [facility] [employer] [facility] [address], [place] [address], [place] [phone] * Hepatitis A Antibody, Total (05/11/2024 8:02 AM EST) Hepatitis A Ab, Total NON-REACT COLLINS NON-REACT COLLINS 05/11/2024 11:44 AM EST [facility] Comment: For additional information, please refer to http://Equiphon.[employer]/faq/UKF890 (This link is being provided for informational/ educational purposes only.) Blood Structure of peripheral vein / Unknown Venipuncture / Unknown 05/11/2024 8:02 AM EST 05/11/2024 8:15 AM EST [employer] [facility] - 05/11/2024 11:44 AM EST [facility] Received Date: Yunior Pérez MD LAB BLOOD ORDERABLES Fin al Result [facility] [address] [facility] [address], [place] [address], [facility] [facility] [address] [facility] [address], [place] [address], * Hemoglobin A1c (05/11/2024 8:02 AM EST) Hemoglobin A1C 4.7 <5.7 % of total Hgb 05/12/2024 10:03 AM [employer] Comment: For the purpose of screening for the presence of diabetes: <5.7% ? Consistent with the absence of diabetes 5.7-6.4% ?Consistent with increased risk for diabetes ?(prediabetes) > or =6.5% ??Consistent with diabetes This assay result is consistent with a decreased risk of diabetes. Currently, no consensus exists regarding use of hemoglobin A1c for diagnosis of diabetes in children. According to [place] Diabetes Association (ADA) guidelines, hemoglobin A1c <7.0% represents optimal control in non- diabetic patients. Different metrics may apply to specific patient populations. Standards of Medical Care in Diabetes(ADA). ?? eAG (MG/DL) 88 mg/dL 05/12/2024 10:03 AM EST [facility] [employer] eAG (MMOL/L) 4.9 mmol/L 05/12/2024 10:03 AM [employer] Blood Structure of peripheral vein / Unknown Venipuncture / Unknown 05/11/2024 8:02 AM EST 05/11/2024 8:15 AM EST Narrative [facility] [place] - 05/12/2024 10:03 AM EST [facility] Received Date:[id number] us Yunior Pérez MD LAB BLOOD ORDERABLES Fin al Result Performing Organization Address [facility]/ZIP Co de Phone Number [facility] [place] [address] [facility] [address] Floor, [place] [address], [place] [phone] [employer] [facility] [address] [facility] [address], [place] [address], [place] [phone] * Ferritin (05/11/2024 8:02 AM EST) [facility] Ferritin 44.9 23.0 - 336.0 ng/mL 05/11/2024 8:57 AM EST [facility] Blood Structure of peripheral vein / Unknown Venipuncture / Unknown 05/11/2024 8:02 AM EST 05/11/2024 8:15 AM EST us Yunior Pérez MD LAB BLOOD ORDERABLES Fin al Result Performing Organization Address [facility] de Phone Number [facility] CLINICAL PATHOLOGY LABORATORY [address] [place] [address], * (ABNORMAL) Nikhil-Mae Virus VCA, IgG (05/11/2024 8:02 AM EST) [facility] EBV Viral Capsid Ag Ab (IGG) >750.00(H ) U/mL 05/11/2024 5:16 PM EST [facility] Comment: ? U/mL ? Interpretation ? ---- ? <18.00 ? Negative ? 18.00-21.99 ?Equivocal ? >21.99 ? Positive Blood Structure of peripheral vein / Unknown Venipuncture / Unknown 05/11/2024 8:02 AM EST 05/11/2024 8:15 AM EST Narrative [facility] [place] - 05/11/2024 5:16 PM EST [facility] Received Date:[id number] Yunior Pérez MD LAB BLOOD ORDERABLES Fin al Result [facility] [place] [address] [facility] [address], [place] [address], [facility] [address] [facility] [address], [place] [address], * (ABNORMAL) Cytomegalovirus Antibody, IgG (05/11/2024 8:02 AM EST) Cytomegalovirus Antibody (IgG) 6.00(H) U/mL 05/12/2024 4:15 AM EST [employer] Comment: ? U/mL ? Interpretation ? ----- ? <0.60 ? Negative ? 0.60-0.69 ? Equivocal ? > or = 0.70 ?? Positive A positive result indicates that the patient has antibody to CMV. It does not differentiate between an active or past infection. Blood Structure of peripheral vein / Unknown Venipuncture / Unknown 05/11/2024 8:02 AM EST 05/11/2024 8:15 AM EST Narrative [facility] [place] - 05/12/2024 4:15 AM EST [facility] Received Date: us Yunior Pérez MD LAB BLOOD ORDERABLES Fin al Result [facility] [place] [address] [facility] [address], [place] [address], [employer] [facility] [address] [facility] [address], [place] [address], [place] [phone] * (ABNORMAL) Comprehensive Metabolic Panel (05/11/2024 8:02 [...] - 5.2 g/dL 05/11/2024 8:57 AM EST [facility] [employer] [facility] LABORATORY Bilirubin, Total 1.5(H) 0.2 - 1.2 mg/dL 05/11/2024 8:57 AM EST [facility] LAB[facility] Alkaline Phosphatase 165(H) 35 - 129 U/L 05/11/2024 8:57 AM EST [facility] AST 23 10 - 40 U/L 05/11/2024 8:57 AM EST [facility] ALT 11 10 - 40 U/L 05/11/2024 8:57 AM EST [employer] [facility] BUN 16 7 - 23 mg/dL 05/11/2024 8:57 AM EST [employer] [facility] [employer] [facility] LAB[facility]ATORY eGFR 74 >=60 mL/min/1. 73m2 05/11/2024 8:57 AM EST [employer] [facility] [employer] [facility] LABORATORY Comment:The estimated glomer ular [...] - 4.2 g/dL 05/11/2024 8:57 AM EST [employer] [facility] CL[facility]ICAL PATHOLOGY LABORATORY A/G Ratio 1.2(L) 1.5 - 3.0 05/11/2024 8:57 AM EST [employer] [email or web address] CLINICAL PATHOLOGY LABORATORY Blood Structure of peripheral vein / Unknown Venipuncture / Unknown 05/11/2024 8:02 AM EST 05/11/2024 8:15 AM EST us Yunior Pérez MD LAB BLOOD ORDERABLES Fin al Result [facility] PATH[facility] [address] [place] [address], * Ceruloplasmin (05/11/2024 8:02 AM EST) Ceruloplasmin 19 14 - 30 mg/dL 05/13/2024 1:07 AM EST [employer] Blood Structure of peripheral vein / Unknown Venipuncture / Unknown 05/11/2024 8:02 AM EST 05/11/2024 8:15 AM EST Narrative [facility] [place] - 05/13/2024 1:07 AM EST [facility] Received Date: Yunior Pérez MD LAB BLOOD ORDERABLES Fin al Result Performing Organization Address [facility] Co de Phone Number [facility] [place] [address] [facility] [address], [place] [address], [place] [phone] [facility] [address] [facility] [address], [place] [address], [place] [phone] * (ABNORMAL) Lipid panel (05/11/2024 8:02 AM EST) Cholesterol 142 <=199 mg/dL 05/11/2024 8:57 AM EST [facility] LAB[facility] Triglycerides 82 <=149 mg/dL 05/11/2024 8:57 AM EST [facility] Cholesterol, HDL 71(H) 40 - 59 mg/dL 05/11/2024 8:57 AM EST [employer] [employer] [facility] Cholesterol, Non-HDL 71 mg/dL 05/11/2024 8:57 AM EST [employer] [employer] [facility] LDL Cholesterol 55 <100 mg/dL 05/11/2024 8:57 AM EST [facility] VLDL 16.4 mg/dL 05/11/2024 8:57 AM EST [facility] Cholesterol/HDL Ratio 2.0 <5.0 05/11/2024 8:57 AM EST [facility] Blood Structure of peripheral vein / Unknown Venipuncture / Unknown 05/11/2024 8:02 AM EST 05/11/2024 8:15 AM EST Narrative [employer] [email or web address] CL[facility]ICAL PATHOLOGY LABORATORY - 05/11/2024 8:57 AM [...] [facility]AT[place] [address] [place] [address], [place] * (ABNORMAL) CBC Auto Differential (05/11/2024 [...] % 1.0 % 05/11/2024 8:22 AM EST [employer] [facility] LAB[facility] Neutrophil # 5.60 1.50 - 7.80 10*3/uL 05/11/2024 8:22 AM EST [facility] [facility] Immature Grans # 0.03 <=0.03 10*3/uL 05/11/2024 8:22 AM EST [employer] [facility] Lymphocyte # 1.60 0.85 - 3.90 10*3/uL 05/11/2024 8:22 AM EST [employer] [facility] Monocyte # 1.10(H) 0.20 - 0.95 10*3/uL 05/11/2024 8:22 AM EST [employer] [facility] Eosinophil # 0.20 0.02 - 0.50 10*3/uL 05/11/2024 8:22 AM EST [employer] [facility] [facility]OLOG[facility] LAB[facility]AT[facility] Basophil # 0.10 0.00 - 0.20 10*3/uL 05/11/2024 8:22 AM EST [employer] [facility] nRBC % 0.0 /100 WBCs 05/11/2024 8:22 AM EST [employer] [employer] [facility] PATHOLOG[facility] LABORAT[facility] nRBC # <0.01 <0.01 10*3/uL 05/11/2024 8:22 AM EST [employer] [facility] [facility]ICAL PATHOLOG[facility] LABORATORY Blood Structure of peripheral vein / Unknown Venipuncture / Unknown 05/11/2024 8:02 AM EST 05/11/2024 8:15 AM EST Yunior Pérez MD LAB BLOOD ORDERABLES Fin al Result [facility]ICAL PATHOLOG[facility] LABORAT[place] [address] [place] [address], * Mitochondrial Antibody w/Reflex (05/11/2024 8:02 AM EST) Mitochondrial Ab Screen NEGATIVE NEGATIVE 05/14/2024 3:03 PM EST [employer] Comment: The specimen was negative for cytoplasmic antibodies, however additional staining was observed suggesting the presence of Antinuclear Antibodies. Consider requesting order code 249, SHELLY Screen, IFA with Reflex to Titer and Pattern, or order code [id number], SHELLY Screen, IFA w/reflex Titer/Pattern, and Reflex to Multiplex 11 Ab Grant, if clinically indicated. Blood Structure of peripheral vein / Unknown Venipuncture / Unknown 05/11/2024 8:02 AM EST 05/11/2024 8:13 AM EST Narrative [facility] [place] - 05/14/2024 3:03 PM EST [facility] Received Date:[id number] us Yunior Pérez MD LAB BLOOD ORDERABLES Christian briceno Result [facility] [address] [facility] [address] [facility], [place] [address], [employer] [facility] [address], [place] [address], * (ABNORMAL) Cystatin C with Glomerular Filtration [...] 05/11/2024 8:14 AM EST Narrative [facility] [place] ([facility]) - 05/17/2024 12:21 PM EST [facility] Received Date:[id number] us Yunior Pérez MD LAB BLOOD ORDERABLES King ben Result - Final [facility] [place]) [address] [place] [address], [place] * (ABNORMAL) Bilirubin, Direct (05/11/2024 8:02 AM EST) Bilirubin, Direct 0.8(H) <=0.4 mg/dL 05/11/2024 8:57 AM EST [facility] CLINICAL PATHOLOGY LABORATORY Blood Structure of peripheral vein / Unknown Venipuncture / Unknown 05/11/2024 8:02 AM EST 05/11/2024 8:15 AM EST us Yunior Pérez MD LAB BLOOD ORDERABLES Fin al Result Performing Organization Address [facility] Co de Phone Number [facility] CL[facility]ICAL PATHOLOGY LABORATORY [address] [place] [address], [place] * (ABNORMAL) SHELLY Screen, Reflex to Titer, IFA (05/11/2024 8:02 AM EST) SHELLY Screen, IFA POSITIVE (A) NEGATIVE 05/16/2024 12:00 PM EST [facility] Comment: SHELLY IFA is a first line screen for detecting the presence of up to approximately 150 autoantibodies in various autoimmune diseases. A positive SHELLY IFA result is suggestive of autoimmune disease and reflexes to titer and pattern. Further laboratory testing may be considered if clinically indicated. For additional information, please refer to http://education.Recovr/faq/FDM822 (This link is being provided for informational/ educational purposes only.) ?? Blood Structure of peripheral vein / Unknown Venipuncture / Unknown 05/11/2024 8:02 AM EST 05/11/2024 8:15 AM EST Narrative [facility] - 05/16/2024 12:00 PM EST [facility] Received Date:[id number] us Yunior Pérez MD LAB BLOOD ORDERABLES Fin al Result Performing Organization Address City/[facility]/ZIP Co de Phone Number [facility] [address] [place] [address] 3rd Floor, [address] [place] [address], [place] [phone] [facility] [address], [address] [place] [address], * (ABNORMAL) AFP Tumor Marker (05/11/2024 8:02 AM EST) Pathologist [facility] Alpha Fetoprotein, Tumor Marker 7.4(H) <6.1 ng/mL 05/14/2024 1:16 PM EST [employer] [facility] Comment: This test was performed using the Bakari Paco chemiluminescent method. Values obtained from different assay methods cannot be used interchangeably. AFP levels, regardless of value, should not be interpreted as absolute evidence of the presence or absence of disease. Blood Structure of peripheral vein / Unknown Venipuncture / Unknown 05/11/2024 8:02 AM EST 05/11/2024 8:15 AM EST Narrative [facility] - 05/14/2024 1:16 PM EST [facility] Received Date: Yunior Pérez MD LAB BLOOD ORDERABLES Fin al Result [facility] [place] [address], [place] [address], [facility] [address], [place] [address], * Haqla-2-Nnlddgolhiz (AAT) Phenotype (05/11/2024 8:02 AM EST) Pathologist [facility] Alpha 1 Antitrypsin Phenotype SEE NOTE 05/15/2024 1:10 PM EST [facility]RACHAEL FOSTER Comment: THIS PATIENT'S YKOZJ-3-CRIGKVRONEY PHENOTYPE IS PI*MM. 90% of normal individuals have the MM phenotype, with normal quantitative AAT levels. Many phenotypic patterns have been described, including deficiency states with F, S, Z, or other alleles. As a general estimation, compared to M allele of 100% of normal W-2-Zlpyogxorjo protein, the S allele produces approximately 60% and the Z allele 20%. For example, an MS phenotype would have about 80% of normal O-0-Dicbklfqegk protein level, a 50% contribution from the M allele and 30% from the S allele. A ZZ phenotype would have about 20% of normal levels, a 10% contribution from each Z gene. The F allele has normal P-6-Whvqynkwgnu levels, but the kinetics of elastase inhibition [...] 8:02 AM EST 05/11/2024 8:13 AM EST [facility] - 05/15/2024 1:10 PM EST [facility] Received Date: Yunior Pérez MD LAB BLOOD ORDERABLES Fin al Result [facility] [address] [place] [address] 3rd Floor, [place] [address], [place] [phone] [facility] [address] [place] [address], [place] [phone] * Ethanol (05/11/2024 8:02 AM EST) Ethanol <10 <10 mg/dL 05/11/2024 8:53 AM EST [facility] CLINICAL PATHOLOG[facility] LABORAT[facility] Blood Structure of peripheral vein / Unknown Venipuncture / Unknown 05/11/2024 8:02 AM EST 05/11/2024 8:11 AM EST us Yunior Pérez MD LAB BLOOD ORDERABLES Fin al Result [facility] [employer] [facility] LABORATORY [address], [place] [address] documented in this encounter Visit Diagnoses Diagnosis Encounter for pre-transplant evaluation for liver transplant- Primary documented in this encounter Care Teams Assignment Editor Relationship Specialty Start Date End Date Gulshan Chanel [address] [place] [address] PCP - General 04/17/24 documented as of this encounter
--- OUTSIDE RECORDS SUMMARY | 2024-06-08 11:22 | XMS_ITS ---
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 Care Team Name Role Phone Fax Email Angela Weaver RN Liver Coordinator N/A N/A N/A Yunior Pérez MD Netsuite Consultant [phone] Rosana [email or web address] Erin Allen MD Referring Physician [phone] [email or web address] Pre-Transplant Referred: 03/15/2024 Evaluation began: 04/17/2024 Appointments (05/11/2024 - 07/09/2024) When With Visit Type Description 05/11/2024 Radiology - Carie Pérez CT Liver 05/11/2024 Transplant - Nicolás Barr Transpla nt Evaluation Visit Awaiting organ transplant (Primary Dx) 05/11/2024 Transplant - Oliver-Anoop Garcia Transplant Evaluation Visit 05/11/2024 Transplant - Richar Ortiz Transpla nt Evaluation Visit Encounter for pre-transplant evaluation for chronic liver disease (Primary Dx) 05/11/2024 Transplant - Rightmy er, M Transplant Evaluation Visit Encounter for pre-transplant evaluation for liver transplant (Primary Dx) 05/11/2024 Transplant - Co, M Transplant Ev aluation Visit Special screening examination for infectious diseases (Primary Dx); Encounter for pre-transplant evaluation for liver transplant; Cytomegalovirus infection, unspecified cytomegaloviral infection type 05/11/2024 Transplant - David i, B Transplant Evaluation Visit Alcoholic cirrhosis of liver with ascites (Primary Dx); Portal hypertension; Moderate protein-calorie malnutrition; Secondary esophageal varices without bleeding 05/11/2024 Heart Vasc - Carie Pérez Tr ansthoracic Echocardiogram 06/11/2024 Transplant Office Visit 06/11/2024 Transplant - Richar Ortiz Follow U p
--- OUTSIDE RECORDS SUMMARY | 2024-06-08 11:22 | XMS_ITS | Encounter Summary ---
Author Organization [facility] Address [address] [place] [address] Care Team Providers Care Adult Basic Studies Teacher Name Role Phone Gulshan Chanel Primary Care Provider [phone]- [phone] Encounter Details Date Type Department Care Team (Late st Contact Info) Description 05/15/2024 Results Follow-Up [facility] Liver Transplant Services [address] [place] [address] Angela Weaver RN Social History Tobacco Use [...] Info) Description 06/11/2024 10:30 AM EDT Follow-Up [facility] Liver Transplant Services [address] [place] [address] [phone] Nathan Ortiz MD [address] [place], [place] [phone] 06/11/2024 11:00 AM EDT Clinical Support [facility] Liver Transplant [facility] [address] [place] [phone] documented as of this encounter Visit Diagnoses Not on filedocumented in this encounter Care Teams Adult Basic Studies Teacher Relationship Specialty Start Date End Date Gulshan Chanel [address] [place] [address] PCP - General 04/17/24 documented as of this encounter
--- OUTSIDE RECORDS SUMMARY | 2024-06-08 11:22 | XMS_ITS | Encounter Summary ---
Author Organization [facility] Address [address] [place] [address] Care Team Providers Care Records And Information Manager Name Role Phone Gulshan Chanel Primary Care Provider [phone] Reason for Visit * Transplant (Routine) - Authorized Specialty Diagnoses / Procedures Referred By Billy younger Referred To Contact Transplant Diagnoses Liver Transplant Evaluation Erin Allen MD [address] [address] Phone: tel: fax: [facility] Transplant [facility] [address] [place] [address] Phone: tel: fax: Referral ID Status Reason Start Date Expiration Date V isits Requested Visits Authorized [id number] Authorized 03/15/2024 03/16/2025 99 99 Encounter Details Date Type Department Care Team (Latest Contact Info) Description 05/11/2024 2:30 PM EST Office Visit [facility] [address] [place] [address] Preeti Mcdaniel MD [address] [place] [address] CoElizabeth MD [address] [place] [address] Special screening examination for infectious diseases (Primary Dx); Encounter for pre-transplant evaluation for liver transplant; Cytomegalovirus infection, unspecified cytomegaloviral infection type Social History Tobacco Use Types Packs/Day Years [...] 250 mg by mouth once a day. kgtmxoe-KAWB-qyl-uejfm-qkzy-er [id number] mg capsule 5 mg. omeprazole (PriLOSEC) 20 [...] since 1992- had previously worked in a [employer] company fo 28 years Outdoor activities: hiking and camping states or countries of residence: Born in [facility], currently lives in [place]. Lived in [place] for 2 months, [place] for 1 years, [place] for 1 year, [place]- all during International travel: [place] age 11 service: yes; tours and years include: [employer] [phone] Congregate settings: none Raw foods: none Water [...] all the lab work to result, call grease packer for vaccine history andthen make final vaccine recommendations. Patient and request that I fax list of vaccines to grease packer Recommendations, and Issues Addressed Today: Vaccines to [...] C negative VZV IgG positive Recommend: Called grease packer Dr. Chanel on 05/14/24 for vaccine record and possibility of giving recommended vaccines - awaiting callback Recommend: Hep A series Hep B series MMR 1-2 doses if needed Tdap Shingrix Elizabeth Gonzalez MD Spoke with staff at Dr. Chanel's office on 05/16[facility] Requested that I send lab test results. Elizabeth Gonzalez MD documented in this encounter Plan of Treatment Upcoming Encounters Date Type Department Care Team (Late st Contact Info) Description 06/11/2024 10:30 AM EDT Follow-Up [facility] [address] [place] [phone] Nathan Ortiz MD [address] [place] [address] 06/11/2024 11:00 AM EDT Clinical Support [facility] [address] [place] [address] Scheduled Orders Name Type Priority Associated Diagnoses Orde r Schedule Coccidioides Antibody, IgG/IgM Lab Routine Special screening examination for infectious diseases Encounter for pre-transplant evaluation for liver transplant Expected: 05/11/2024, Expires: 05/11/2025 documented as of this encounter Results * Due to [place] state law, this organization might not be sharing negative HIV tests. * Histoplasma Antibody Panel, CF & ID (05/11/2024 8:02 AM EST) Histoplasma capsulatum yeast phase Ab <1:8 <1:8 NA 05/17/2024 12:21 PM EST [employer] [facility] Histoplasma capsulatum mycelial phase Ab <1:8 <1:8 NA 05/17/2024 12:21 PM EST [facility] [employer] ([facility]) Comment: Interpretive Criteria: ?<1:8 - Antibody Not [...] analytical performance characteristics [facility] [place], [place]. It has not been cleared or approved by the FDA. This assay has been validated pursuant to the CLIA regulations and is used for clinical purposes. Histoplasma capsulatum M Antibody Negative Negative 05/17/2024 12:21 PM EST [employer] [facility] Histoplasma capsulatum H Antibody Negative Negative 05/17/2024 12:21 PM EST [employer] [facility] Comment: This immunodiffusion assay is highly specific [...] 05/11/2024 8:14 AM EST Narrative [facility] ([facility]EV[facility]) - 05/17/2024 12:21 PM EST [facility] Received Date: us Elizabeth Gonzalez MD LAB BLOOD ORDERABLES Final Res ult [facility] ([facility]) [address] [place], [place] , documented in this encounter Visit Diagnoses Diagnosis Special screening examination for infectious diseases- Primary Screening examination for unspecified infectious disease Encounter for pre-transplant evaluation for liver transplant Cytomegalovirus infection, unspecified cytomegaloviral infection type (HCC) documented in this encounter Care Teams Records And Information Manager Relationship Specialty Start Date End Date Gulshan Chanel [address] [place] [address] PCP - General 04/17/24 documented as of this encounter
--- OUTSIDE RECORDS SUMMARY | 2024-06-08 11:22 | XMS_ITS | Referral Summary ---
Author Organization [facility] Address [address] [place] [address] Care Team Providers Care Hydrographer Name Role Phone Gulshan Chanel Garíca Primary Care Provider Encounters Date Type Department Care Team Description 06/06/2024 Orders Only [facility] Transplant Department [address] [place] [address] 18156 Angela Weaver, LUDY Alcoholic cirrhosis of liver with ascites (Primary Dx); Awaiting organ transplant 05/24/2024 Telephone [facility] Transplant Department [address] [place] [address] 34948 Angela Weaver RN 05/18/2024 Orders Only [facility] Transplant Department [address] [place] [address] 24480 Angela Weaver, LUDY Encounter for pre-transplant evaluation for liver transplant (Primary Dx) 05/16/2024 Orders Only [facility] Transplant Department [address] [place] [address] 46980 Angela Weaver, LUDY Alcoholic cirrhosis of liver with ascites (Primary Dx) 05/16/2024 Telephone [facility] Gastroenterology Clinic [address] [place] [address] 47685 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: Yunior Bravo MD 05/16/2024 Results Follow-Up [facility] Liver Transplant Services [address] [place] [address] [phone] Angela Weaver LUDY 05/16/2024 Telephone [facility] Transplant Department [address] [place] [address] 57283 Angela Weaver, LUDY 05/15/2024 Results Follow-Up [facility] Liver Transplant Services [address] [place] [address] 37492 Angela Weaver, LUDY 05/11/2024 Refill [facility] Transplant Department [address] [place] [address] 78458 OlivierMariangeln Hepatic cirrhosis, unspecified hepatic cirrhosis type, unspecified whether ascites present (Primary Dx); Moderate protein-calorie malnutrition 05/11/2024 10:28 AM EST - 05/11/2024 11:59 PM EST Hospital Encounter [facility] CT Scan [address] [place] [address] 80236 Yunior Pérez MD Discharge Disposition: Home or Self Care (01) 05/11/2024 11:45 AM EST Office Visit [facility] Liver Transplant Services [address] [place] [address] 93090 Evelyn Barr RN Awaiting organ transplant (Primary Dx) 05/11/2024 12:15 PM EST Social Work [facility] Liver Transplant Services [address] [place] [address] 82097 Radha Higginbotham [facility] 05/11/2024 1:00 PM EST Office Visit [facility] Liver Transplant Services [address] [place] [address] 64023 Nathan Ortiz MD Encounter for pre-transplant evaluation for chronic liver disease (Primary Dx) 05/11/2024 1:45 PM EST Nutrition [facility] Liver Transplant Services [address] [place] [address] Encounter for pre-transplant evaluation for liver transplant (Primary Dx) 05/11/2024 2:30 PM EST Office Visit [facility] Liver Transplant Services [address] [place] [address] 40031 Preeti Mcdaniel MD Co, Elizabeth Hartmann MD Special screening examination for infectious diseases (Primary Dx); Encounter for pre-transplant evaluation for liver transplant; Cytomegalovirus infection, unspecified cytomegaloviral infection type 05/11/2024 3:15 PM EST Office Visit [facility] Liver Transplant Services [address] [place] [address] 92933 Kash Ramirez MD PhD Alcoholic cirrhosis of liver with ascites (Primary Dx); Portal hypertension; Moderate protein-calorie malnutrition; Secondary esophageal varices without bleeding 05/11/2024 8:35 AM EST - 05/11/2024 10:27 AM EST Hospital Encounter [facility] ACC Building Cardiac Ultrasound [address] [place] [address] 60857 Yunior Pérez MD Discharge Disposition: Home or Self Care () 05/09/2024 Telephone [facility] Transplant Department [address] [place] [address] 89706 Angela Weaver, RN 05/08/2024 Telephone [facility] Transplant Department [address] [place] [address] 94294 Angela Weaver, RN 05/01/2024 Telephone [facility] Transplant Department [address] [place] [address] 79542 Angela Weaver, RN 04/18/2024 Orders Only [facility] Transplant Department [address] [place] [address] 85671 Angela Weaver, RN Encounter for pre-transplant evaluation for liver transplant (Primary Dx) 04/17/2024 Orders Only [facility] Nuclear Medicine [address] [place] [address] 48470 Nurys Rutherford MD 04/17/2024 Abstract [facility] Transplant Department [address] [place] [address] 29586 Yunior Pérez MD 04/17/2024 1:00 PM EST Office Visit [facility] Liver Transplant Services [address] [place] [address] 02585 Yunior Pérez MD Encounter for pre-transplant evaluation for liver transplant (Primary Dx) 04/17/2024 12:00 PM EST Evaluation [facility] Liver Transplant Services [address] [place] [address] Angela Weaver, RN Encounter for pre-transplant evaluation for liver transplant (Primary Dx) 04/12/2024 Documentation [facility] Transplant Department [address] [place] [address] 69172 [place], Radha F., SLUDGE MILL OPERATOR Transportation 04/11/2024 Orders Only [facility] Transplant Department [address] [place] [address] 79700 Angela Weaver, LUDY Encounter for pre-transplant evaluation for liver transplant (Primary Dx) 04/06/2024 Telephone [facility] Transplant Department [address] [place] [address] 75961 Angela Weaver, LDUY 04/05/2024 Telephone [facility] Transplant Department [address] [place] [address] 69616 [place], Radha F., SLUDGE MILL OPERATOR social worker school 03/30/2024 Telephone [facility] Transplant Department [address] [place] [address] 72015 [place], Radha F., SLUDGE MILL OPERATOR Transportation 03/29/2024 Telephone [facility] Transplant Department [address] [place] [address] 68352 Angela Weaver, LUDY 03/29/2024 Documentation [facility] Transplant Department [address] [place] [address] 48290 [place], Radha F., SLUDGE MILL OPERATOR Transportation 03/16/2024 Orders Only [facility] Transplant Department [address] [place] [address] ProviderTimothy MD 03/15/2024 Orders Only [facility] Transplant Department [address] [place] [address] Provider, MD Timothy from Last 3 Months Allergies No known [...] extended release Take by mouth. 4 Active uzqrzuh-IGER-roh-v qlez-wdke-to 0.33-59-343-200 mg capsule 5 mg. 4 Active magnesium [...] by mouth 2 (two) times a day. 38134 mL 3 5 Active vitamin A 3,000 [...] Follow-Up [facility] Liver Transplant Services [address] [place] [address] 35154 Nathan Ortiz MD [address] [place] [address] 06/11/2024 11:00 AM EDT Clinical Support [facility] Liver Transplant Services [address] [place] [address] 74790 Procedures * Due to [place] state law, this organization might not be [...] Encounter for pre-transplant evaluation for liver transplant QJZLH-2-DCCTALMZQVB (AAT) PHENOTYPE Routine 05/11/2024 8:02 AM EST [...] CYSTATIN C WITH GLOMERULAR FILTRATION RATE, ESTIMATED (EGFR)-[id number] Routine 05/11/2024 8:02 AM EST Encounter for [...] Encounter for pre-transplant evaluation for liver transplant NKIHIL-RICHARDSON VIRUS VCA, IGG Routine 05/11/2024 8:02 AM [...] for pre-transplant evaluation for liver transplant PHOSPHATIDYLETHANOL-ARU [id number] Routine 05/11/2024 8:02 AM EST Encounter for [...] for liver transplant QUANTIFERON-TB GOLD PLUS, 1 [id number] Routine 05/11/2024 8:02 AM EST Encounter for pre-transplant evaluation for liver transplant RPR (DIAGNOSIS) W/REFLEX TO TITER & TPPA [id number] Routine 05/11/2024 8:02 AM EST Encounter for [...] for pre-transplant evaluation for liver transplant ZINC, PLASMA/LPLBK-LIA-775 Routine 05/11/2024 8:02 AM EST Encounter for pre-transplant evaluation for liver transplant PSA Routine 05/11/2024 8:02 AM EST Encounter for pre-transplant evaluation for liver transplant LIVER PRE EXTERNAL PANEL Routine 04/16/2024 from Last 3 Months Results * Due to [place] state law, this organization might not be [...] obtain the completed interpretation. ? Workstation ID: [id number] Up-to-date CT equipment and radiation dose reduction techniques were employed. CTDIvol: 3.0 - 14.6 mGy. DLP: 1699 mGy-cm. ??The following accession numbers are related to this dose report [id number]: [id number] Narrative 05/14/2024 7:59 PM EST EXAMINATION: CT [...] image 107 series 10. Resulting Agency Comment [id number] Procedure Note Christen Aviles MD - 05/14/2024 [...] 3. Cholelithiasis and choledocholithiasis. Punctate calculus seen [id number] series 4 within the distal CBD. Can [...] possible to obtain thecompleted interpretation. Workstation ID: [id number] Up-to-date CT equipment and radiation dose reduction techniques wereemployed. CTDIvol: 3.0 - 14.6 mGy. DLP: 1699 mGy-cm. The followingaccession numbers are related to this dose report [id number]: [id number] Yunior Pérez MD IM CT PROCEDURES Final [...] obtain the completed interpretation. ? Workstation ID: [id number] Up-to-date CT equipment and radiation dose reduction techniques were employed. CTDIvol: 3.0 - 14.6 mGy. DLP: 1699 mGy-cm. ??The following accession numbers are related to this dose report [id number]: [id number] Narrative 05/17/2024 4:11 PM EST Indication: ??pre [...] vertebral disease. Bilateral gynecomastia. Resulting Agency Comment [id number] Procedure Note Sidney Delatorre MD PhD - [...] possible to obtain thecompleted interpretation. Workstation ID: [id number] Up-to-date CT equipment and radiation dose reduction techniques wereemployed. CTDIvol: 3.0 - 14.6 mGy. DLP: 1699 mGy-cm. The followingaccession numbers are related to this dose report [id number]: [id number] Yunior Pérez MD IMBre CT PROCEDURES Final Result * TRANSTHORACIC ECHO [...] BSA 1.85 RIGHT ATRIAL PRESSURE 3 mmHg [facility] RV TISSUE DOPPLER S' 12.0 [...] Doppler. Myocardial deformation imaging was performed using [facility]. During the study the apical, parasternal, subcostal and suprasternal view was captured. Overall the study quality was adequate. Prior Study No prior study available for comparison. STRESS ECHO OVERALL FINDINGS Normal RV size and systolic function. No significant valvular disease identified. Yunior Pérez MD CV ECHO PROCEDURES Final Result * Comprehensive Drug Panel, Urine (05/11/2024 8:11 AM EST) [facility] Comprehensive Drug Screen Urine DRUGS DETECTED 05/11/2024 2:55 PM EST [facility] Comment: NICOTINE GABAPENTIN COTININE CAFFEINE TRAMADOL AND METABOLITE Urine Voided urine specimen / Unknown Non-Blood Collection / Unknown 05/11/2024 8:11 AM EST 05/11/2024 8:16 AM EST Narrative [facility] - 05/11/2024 2:55 PM EST [facility] Received Date:[id number] us Yunior Pérez MD LAB URINE ORDERABLES Fin al Result [facility] [address] [facility] 3rd Floor, [place] [address], [place] [phone] [employer] [address], [place] [address], [place] [phone] * (ABNORMAL) Cystatin C with Glomerular Filtration Rate, Estimated (eGFR) (05/11/2024 8:02 AM EST) [facility] Cystatin C 1.39(H) 0.52 - 1.23 mg/L 05/17/2024 12:21 PM EST [facility] ([place]) eGFR Non- 51(L) >=60 NA 05/17/2024 12:21 PM EST [facility] ([place]) Comment: ?REFERENCE RANGE:>=60 mL/min/1.73mE2 ? Blood Structure of peripheral vein / Unknown Venipuncture / Unknown 05/11/2024 8:02 AM EST 05/11/2024 8:14 AM EST Narrative [facility] ([place]) - 05/17/2024 12:21 PM EST [facility] Received Date:[id number] us Yunior Pérez MD LAB BLOOD ORDERABLES King ben Result - Final [facility] ([place]) [id number] [place] [address], [place] * (ABNORMAL) SHELLY, Titer and Pattern (05/11/2024 8:02 AM EST) SHELLY Titer 1 1:320(H) titer 05/16/2024 12:01 PM EST [employer] Comment: ?Reference Range ?<1:40 ?Negative ?1:40-1:80 ?Low Antibody Level ?>1:80 ?Elevated Antibody Level SHELLY Pattern 1 Nuclear, Homogeneo us(A) 05/16/2024 12:01 PM EST [employer] Comment: Homogeneous pattern is associated with systemic lupus erythematosus (SLE), drug-induced lupus and juvenile idiopathic arthritis. AC-1: Homogeneous International Consensus on SHELLY Patterns (https://doi.org/10.1515/eunh-5979-1319) SHELLY Titer 2 1:320(H) titer 05/16/2024 12:01 PM EST [employer] Comment: ?Reference Range ?<1:40 ?Negative ?1:40-1:80 ?Low Antibody Level ?>1:80 ?Elevated Antibody Level SHELLY Pattern 2 Nuclear, Speckled( A) 05/16/2024 12:01 PM EST [employer] Comment: Speckled pattern is associated with mixed connective tissue disease (MCTD), systemic lupus erythematosus (SLE), Sjogren's syndrome, dermatomyositis, and systemic sclerosis/polymyositis overlap. AC-2,4,5,29: Speckled International Consensus on SHELLY Patterns (https://doi.org/10.1515/fhqs-6922-6326) Blood Structure of peripheral vein / Unknown Venipuncture / Unknown 05/11/2024 8:02 AM EST 05/11/2024 8:15 AM EST Narrative [facility] - 05/16/2024 12:01 PM EST [facility] Received Date: Yunior Pérez MD LAB BLOOD ORDERABLES Fin al Result [facility] [address] [facility] 3rd [address], [place] [address], [place] [phone] [employer] [facility] [address] [facility] 3rd Floor, [place] [address], * Phosphatidylethanol (PEth) (05/11/2024 8:02 AM EST) [...] LABORATORY Comment: Authorized individuals can access the [email or web address] Enhanced Report with an [email or web address] Connect account using the following link. Your local lab can assist you in obtaining the patient report if you don't have a Connect account. [email or web address] PEth Interpretation See Comment 04/22 5:33 PM EST [email or web address] LABORATORY Comment: Phosphatidylethanol (PEth) is a group [...] developed and its performance characteristics determined by [employer]. It has not been cleared or approved by the U.S. Food and Drug Administration. This test was performed in a CLIA-certified laboratory and is intended for clinical purposes. Performed By: [employer] [address] [place], [place] [id number] Physical Sciences Instructor: Yusuf Lomas MD, PhD CLIA Number: [id number] Blood Structure of peripheral vein / Unknown Venipuncture / Unknown 05/11/2024 8:02 AM EST 05/11/2024 8:15 AM EST Yunior Pérez MD LAB BLOOD ORDERABLES Fin al Result [facility] [address] [id number], * Oowcq-1-Degwiekbugk (AAT) Phenotype (05/11/2024 8:02 AM EST) Alpha 1 Antitrypsin Phenotype SEE NOTE 05/15/2024 1:10 PM EST [facility] Comment: THIS PATIENT'S PXOFY-1-VAQSRCCMYZP PHENOTYPE IS PI*MM. 90% of normal individuals have the MM phenotype, with normal quantitative AAT levels. Many phenotypic patterns have been described, including deficiency states with F, S, Z, or other alleles. As a general estimation, compared to M allele of 100% of normal G-7-Qqendnmjpxf protein, the S allele produces approximately 60% and the Z allele 20%. For example, an MS phenotype would have about 80% of normal K-1-Mhhgzmsdody protein level, a 50% contribution from the M allele and 30% from the S allele. A ZZ phenotype would have about 20% of normal levels, a 10% contribution from each Z gene. The F allele has normal C-2-Wsqxlgzoalz levels, but the kinetics of elastase inhibition [...] 8:02 AM EST 05/11/2024 8:13 AM EST [facility] 05/15/2024 1:10 PM EST [facility] Received Date: us Yunior Pérez MD LAB BLOOD ORDERABLES Fin al Result [facility] IZQUIERDO [address] [facility] [address], [place] [address], [place] [phone] [facility] [address] [place] [address], [place] [phone] * (ABNORMAL) MMR Panel, IgG (05/11/2024 8:02 AM EST) Measles Antibody (IgG), Immune Status <13.50(L) AU/mL 05/11/2024 5:16 PM EST [employer] Comment: AU/mL ?Interpretation ----- ? <13.50 ? Not consistent with immunity 13.50-16.49 ?Equivocal >16.49 ? Consistent with immunity The presence of measles IgG suggests immunization or past or current infection with measles virus. For additional information, please refer to http://Brenco.Apartment List/faq/TPZ158 (This link is being provided for informational/ educational purposes only.) Mumps Antibody (IgG), Immune Status <9.00(L) AU/mL 05/11/2024 5:16 PM EST [employer] Comment: AU/mL ? Interpretation ------- ? <9.00 ? Not consistent with immunity 9.00-10.99 ?Equivocal >10.99 ?Consistent with immunity The presence of mumps IgG antibody suggests immunization or past or current infection with mumps virus. Rubella Antibody (IgG), Immune Status <0.90(L) Index 05/11/2024 5:16 PM EST [employer] Comment: ?Index ?Interpretation ?----- ?<0.90 ?Not consistent with immunity ?0.90-0.99 ?Equivocal ?> or = 1.00 ?Consistent with immunity The presence of rubella IgG antibody suggests immunization or past or current infection with rubella virus. Blood Structure of peripheral vein / Unknown Venipuncture / Unknown 05/11/2024 8:02 AM EST 05/11/2024 8:15 AM EST Narrative [facility] - 05/11/2024 5:16 PM EST [facility] Received Date: Yunior Pérez MD LAB BLOOD ORDERABLES Fin al Result [facility] [address] [facility] 3[address], [place] [address], [employer] [facility] [address] [facility] 3rd Floor, [place] [address], * (ABNORMAL) Herpes Simplex Virus 1&2, IgG (05/11/2024 8:02 AM EST) HSV 1 IgG Type Specific Ab <0.90 index 05/11/2024 9:20 PM EST [employer] [facility] HSV 2 IgG Type Specific Ab 1.66(H) index 05/11/2024 9:20 PM EST [employer] Comment: ?Index ?Interpretation ?----- ?<0.90 ?Negative ?0.90-1.09 ?Equivocal ?>1.09 ?Positive Low HSV-2 IgG positive results (index values between 1.10-3.00) may represent false positive results. CDC 202 guidelines recommend confirmatory testing of samples with low-positive HSV-2 IgG results. If clinically indicated, consider adding on HSV-2 IgG Inhibition, by contacting [employer]. For additional information, please refer to: https://www.aCon/healthcare- professionals/qzwbyvjv-uznhseynr-jcvxcu/faq/faq73 (This link is being provided for informational/ [...] screening. For additional information, please refer to http://education.Apartment List/faq/ZYJ327 (This link is being provided for informational/ educational purposes only.) ?? Blood Structure of peripheral vein / Unknown Venipuncture / Unknown 05/11/2024 8:02 AM EST 05/11/2024 8:13 AM EST [facility] 05/11/[facility] 9:20 PM EST [facility] Received Date: Yunior Pérez MD LAB BLOOD ORDERABLES [facility] al Result [facility] [address], [place] [address], [employer] [facility] [address] [facility] 3rd [address], [place] [address], * Protein Electrophoresis w/Reflex to Immunofixation, Serum (05/11/2024 8:02 AM EST) [facility] Protein, Total 6.9 6.1 - 8.1 g/dL 05/11/2024 10:39 PM EST [employer] [facility] Albumin 3.8 3.8 - 4.8 g/dL 05/11/2024 10:39 PM EST [employer] [facility] Alpha 1 Globulin 0.3 0.2 - 0.3 g/dL 05/11/2024 10:39 PM EST [employer] [facility] Alpha 2 Globulin 0.6 0.5 - 0.9 g/dL 05/11/2024 10:39 PM EST [employer] [facility] Beta 1 Globulin 0.5 0.4 - 0.6 g/dL 05/11/2024 10:39 PM EST [employer] [facility] Beta 2 Globulin 0.3 0.2 - 0.5 g/dL 05/11/2024 10:39 PM EST [employer] [facility] Gamma Globulin 1.4 0.8 - 1.7 g/dL 05/11/2024 10:39 PM EST [employer] [facility] Interpretation See Comments 05/11/2024 10:39 PM EST [employer] [facility] Comment: Normal Serum Protein Electrophoresis Pattern. No abnormal protein bands (M-protein) detected. Blood Structure of peripheral vein / Unknown Venipuncture / Unknown 05/11/2024 8:02 AM EST 05/11/2024 8:14 AM EST [facility] - 05/11/2024 10:39 PM EST [facility] Received Date: Yunior Pérez MD LAB BLOOD ORDERABLES Fin al Result [facility] [address] [facility] [address]rd [address], [place] [address], [employer] [facility] [address] [facility] [address]rd [address], [place] [address], * RPR (Diagnosis) w/Reflex to Titer & TPPA Confirm (05/11/2024 8:02 AM EST) RPR W/Refl Titer NON-REACT COLLINS NON-REACT COLLINS 05/11/2024 1:09 PM EST [employer] [facility] Blood Structure of peripheral vein / Unknown Venipuncture / Unknown 05/11/2024 8:02 AM EST 05/11/2024 8:15 AM EST Narrative [facility] - 05/11/2024 1:09 PM EST [facility] Received Date:[id number] us Yunior Pérez MD LAB BLOOD ORDERABLES Fin al Result [facility] [address] [facility] [address]rd [address], [place] [address], [place] [phone] [employer] [facility] [address] [facility] 3rd [address], [place] [address], [place] [phone] * (ABNORMAL) Iron Saturation (05/11/2024 8:02 AM EST) Iron Saturation 6(L) 20 - 50 % 8:57 AM EST [facility] [facility] Iron 25(L) 45 - 160 ug/dL 05/11/2024 8:57 AM EST [facility] [facility] Transferrin 316 200 - 360 mg/dL 05/11/2024 8:57 AM EST [facility] Total Iron Binding Capacity 395 255 - 450 ug/dL 05/11/2024 8:57 AM EST [facility] [facility] Blood Structure of peripheral vein / Unknown Venipuncture / Unknown 05/11/2024 8:02 AM EST 05/11/2024 8:15 AM EST us Yunior Pérez MD LAB BLOOD ORDERABLES Fin al Result [facility] [address] [place] [address], * TSH Reflex Free T4 (05/11/2024 8:02 AM EST) TSH 2.130 0.280 - 3.890 uIU/mL 05/11/2024 8:57 AM EST [facility] [facility] Blood Structure of peripheral vein / Unknown Venipuncture / Unknown 05/11/2024 8:02 AM EST 05/11/2024 8:15 AM EST Yunior Pérez MD LAB BLOOD ORDERABLES Fin al Result [facility] [employer] CL[facility]ICAL PATHOLOGY LABORATORY [address] [place] [address], * QuantiFERON-TB Gold Plus, 1 Tube (05/11/2024 8:02 AM EST) [facility] QuantiFERON-TB Gold Plus NEGATIVE NEGATIVE 05/14/2024 2:04 PM EST [employer] [facility] Comment: Negative test result. M. tuberculosis complex infection unlikely. NIL 0.01 IU/mL 05/14/2024 2:04 PM EST [employer] [facility] Mitogen-NIL 9.32 IU/mL 05/14/2024 2:04 PM EST [employer] [facility] TB1-NIL 0.00 IU/mL 05/14/2024 2:04 PM EST [employer] [facility] TB2-NIL 0.01 IU/mL 05/14/2024 2:04 PM EST [employer] [facility] Comment: The Nil tube value reflects the [...] T-lymphocytes. For additional information, please refer to https://education.Foundation Medicine.SupportPay/faq/YZW769 (This link is being provided for informational/ educational purposes only.) Blood Structure of peripheral vein / Unknown Venipuncture / Unknown 05/11/2024 8:02 AM EST 05/11/2024 8:10 AM EST Narrative [facility] - 05/14/2024 2:04 PM EST [facility] Received Date: Yunior Pérez MD LAB BLOOD ORDERABLES Fin al Result [facility] [address] [facility] [address]rd [address], [place] [address], [place] [phone] [employer] [facility] [address] [facility] 3rd [address], [place] [address], [place] [phone] * (ABNORMAL) CBC Auto Differential (05/11/2024 8:02 [...] % 1.0 % 05/11/2024 8:22 AM EST [facility] Neutrophil # 5.60 1.50 - 7.80 10*3/uL 05/11/2024 8:22 AM EST [facility] Immature Grans # 0.03 <=0.03 10*3/uL 05/11/2024 8:22 AM EST [facility] Lymphocyte # 1.60 0.85 - 3.90 10*3/uL 05/11/2024 8:22 AM EST [facility] Monocyte # 1.10(H) 0.20 - 0.95 10*3/uL 05/11/2024 8:22 AM EST [facility] Eosinophil # 0.20 0.02 - 0.50 10*3/uL 05/11/2024 8:22 AM EST [facility] Basophil # 0.10 0.00 - 0.20 10*3/uL 05/11/2024 8:22 AM EST [facility] nRBC % 0.0 /100 WBCs 05/11/2024 8:22 AM EST [facility] nRBC # <0.01 <0.01 10*3/uL 05/11/2024 8:22 AM EST [facility] Blood Structure of peripheral vein / Unknown Venipuncture / Unknown 05/11/2024 8:02 AM EST 05/11/2024 8:15 AM EST us Yunior Pérez MD LAB BLOOD ORDERABLES Fin al Result Performing Organization Address City/[facility]/ZIP Co de Phone Number [facility] [employer] [facility] [address] [place] [address], * Smooth Muscle Antibody Screen w/Reflex to Titer (05/11/2024 8:02 AM EST) Smooth Muscle AB Screen NEGATIVE NEGATIVE 05/14/2024 3:03 PM EST [employer] Comment: The specimen was negative for cytoplasmic antibodies, however additional staining was observed suggesting the presence of Antinuclear Antibodies. Consider requesting order code 249, SHELLY Screen, IFA with Reflex to Titer and Pattern, or order code [id number], SHELLY Screen, IFA w/reflex Titer/Pattern, and Reflex to Multiplex 11 Ab Tenafly, if clinically indicated. Blood Structure of peripheral vein / Unknown Venipuncture / Unknown 05/11/2024 8:02 AM EST 05/11/2024 8:15 AM EST Narrative [facility] - 05/14/2024 3:03 PM EST [facility] Received Date:[id number] us Yunior Pérez MD LAB BLOOD ORDERABLES Fin al Result Performing Organization Address City/[facility] Co de Phone Number [facility] 200 [facility] 3rd Floor, [place] [address], [employer] [facility] 200 [facility] 3rd Floor, [place] [address], [place] [phone] * Hepatitis C Antibody w/Reflex to PCR (05/11/2024 8:02 AM EST) Hepatitis C Antibody NON-REACT COLLINS NON-REACT COLLINS 05/11/2024 11:44 AM EST [employer] Comment: HCV antibody was non-reactive. There is no laboratory evidence of HCV infection. In most cases, no further action is required. However, if recent HCV exposure is suspected, a test for HCV RNA (test code 78844) is suggested. For additional information please refer to http://Brenco.aCon/faq/JKD49x4 (This link is being provided for informational/ educational purposes only.) Blood Structure of peripheral vein / Unknown Venipuncture / Unknown 05/11/2024 8:02 AM EST 05/11/2024 8:15 AM EST Narrative [facility] - 05/11/2024 11:44 AM EST [facility] Received Date:[id number] us Yunior Pérez MD LAB BLOOD ORDERABLES Fin al Result Performing Organization Address City/[facility]/ZIP Co de Phone Number [facility] [address], [place] [address], [place] [phone] [employer] [address], [place] [address], [place] [phone] * Hepatitis A Antibody, Total (05/11/2024 8:02 AM EST) Hepatitis A Ab, Total NON-REACT COLLINS NON-REACT COLLINS 05/11/2024 11:44 AM EST [employer] [facility] Comment: For additional information, please refer to http://Brenco.aCon/faq/TUG883 (This link is being provided for informational/ educational purposes only.) Blood Structure of peripheral vein / Unknown Venipuncture / Unknown 05/11/2024 8:02 AM EST 05/11/2024 8:15 AM EST Narrative [facility] - 05/11/2024 11:44 AM EST [facility] Received Date:[id number] us Yunior Pérez MD LAB BLOOD ORDERABLES Fin al Result [facility] [address], [place] [address], [place] [phone] [employer] [address], [place] [address], * Histoplasma Antibody Panel, CF & ID (05/11/2024 8:02 AM EST) Histoplasma capsulatum yeast phase Ab <1:8 <1:8 NA 05/17/2024 12:21 PM EST [employer] (SANCHEZ) Histoplasma capsulatum mycelial phase Ab <1:8 <1:8 NA 05/17/2024 12:21 PM EST [employer] (SANCHEZ) Comment: Interpretive Criteria: ?<1:8 - Antibody Not [...] analytical performance characteristics have been determined by [employer] [facility], [place], [place]. It has not been cleared or approved by the FDA. This assay has been validated pursuant to the CLIA regulations and is used for clinical purposes. Histoplasma capsulatum M Antibody Negative Negative 05/17/2024 12:21 PM EST [employer] (SANCHEZ) Histoplasma capsulatum H Antibody Negative Negative 05/17/2024 12:21 PM EST [employer] (SANCHEZ) Comment: This immunodiffusion assay is highly specific [...] AM EST 05/11/2024 8:14 AM EST Eriberto LITTLEJOHN (LAURA) - 05/17/2024 12:21 PM EST [facility] Received Date:[id number] Elizabeth Gonzalez MD LAB BLOOD ORDERABLES Final Res ult [facility] POND) [address] [place] [address], [place] * (ABNORMAL) SHELLY Screen, Reflex to Titer, IFA (05/11/2024 8:02 AM EST) SHELLY Screen, IFA POSITIVE (A) NEGATIVE 05/16/2024 12:00 PM EST [employer] Comment: SHELLY IFA is a first line screen for detecting the presence of up to approximately 150 autoantibodies in various autoimmune diseases. A positive SHELLY IFA result is suggestive of autoimmune disease and reflexes to titer and pattern. Further laboratory testing may be considered if clinically indicated. For additional information, please refer to http://education.Apartment List/faq/IUM038 (This link is being provided for informational/ educational purposes only.) ?? Blood Structure of peripheral vein / Unknown Venipuncture / Unknown 05/11/2024 8:02 AM EST 05/11/2024 8:15 AM EST Eriberto IZQUIERDO - 05/16/2024 12:00 PM EST [facility] Received Date:[id number] Yunior Pérez MD LAB BLOOD ORDERABLES Fin al Result [facility] IZQUIERDO 200 [facility] 3rd Floor, [place] [address], [place] [phone] [employer] [facility] 200 [facility] 3rd Floor, [place] [address], [place] [phone] * Ceruloplasmin (05/11/2024 8:02 AM EST) Ceruloplasmin 19 14 - 30 mg/dL 05/13/2024 1:07 AM EST [employer] Blood Structure of peripheral vein / Unknown Venipuncture / Unknown 05/11/2024 8:02 AM EST 05/11/2024 8:15 AM EST Narrative [facility] - 05/13/2024 1:07 AM EST [facility] Received Date:[id number] us Yunior Pérez MD LAB BLOOD ORDERABLES Fin al Result [facility] 200 [facility] 3rd Floor, [place] [address], [place] [phone] [employer] [facility] 200 [facility] 3rd Floor, [place] [address], [place] [phone] * (ABNORMAL) Zinc (05/11/2024 8:02 AM EST) Zinc 45(L) 60 - 130 mcg/dL 05/15/2024 11:53 AM EST [facility] POND) Comment: This test was developed and its analytical performance characteristics have been determined by [employer] [place], [place]. It has not been cleared or approved by the U.S. Food and Drug Administration. This assay has been validated pursuant to the CLIA regulations and is used for clinical purposes. Blood Structure of peripheral vein / Unknown Venipuncture / Unknown 05/11/2024 8:02 AM EST 05/11/2024 8:15 AM EST Eriberto POND) - 05/15/2024 11:53 AM EST [facility] Received Date:[id number] us Yunior Pérez MD LAB BLOOD ORDERABLES Fin al Result [facility]) [address] [place], [place] , [place] * (ABNORMAL) Vitamin A (Retinol) (05/11/2024 8:02 AM EST) Vitamin A (Retinol) 15(L) 38 - 98 mcg/dL 05/14/2024 11:11 PM EST [facility] POND) Comment: Vitamin supplementation within 24 hours prior to blood draw may affect the accuracy of the results. This test was developed and its analytical performance characteristics have been determined by [employer] [place], [place]. It has not been cleared or approved by the U.S. Food and Drug Administration. This assay has been validated pursuant to the CLIA regulations and is used for clinical purposes. Blood Structure of peripheral vein / Unknown Venipuncture / Unknown 05/11/2024 8:02 AM EST 05/11/2024 8:10 AM EST Narrative [facility]) - 05/14/2024 11:11 PM EST [facility] Received Date:[id number] us Yunior Pérez MD LAB BLOOD ORDERABLES Fin al Result Performing Organization Address City/[facility]/ZIP Co de Phone Number [facility] POND) [address] [place] [address], [place] * (ABNORMAL) AFP Tumor Marker (05/11/2024 8:02 AM EST) Pathologist [facility] Alpha Fetoprotein, Tumor Marker 7.4(H) <6.1 ng/mL 05/14/2024 1:16 PM EST [employer] [facility] Comment: This test was performed using the Bakari Paco chemiluminescent method. Values obtained from different assay methods cannot be used interchangeably. AFP levels, regardless of value, should not be interpreted as absolute evidence of the presence or absence of disease. Blood Structure of peripheral vein / Unknown Venipuncture / Unknown 05/11/2024 8:02 AM EST 05/11/2024 8:15 AM EST Narrative [facility] I[facility]IER[facility] - 05/14/2024 1:16 PM EST [facility] Received Date:[id number] us Yunior Pérez MD LAB BLOOD ORDERABLES Fin al Result Performing Organization Address City/[facility]/ZIP Co de Phone Number [facility] 200 [facility] 3rd Floor, [place] [address], [place] [phone] [employer] [facility] 200 [facility] 3rd Floor, [place] [address], [place] [phone] * (ABNORMAL) Nikhil-Richardson Virus VCA, IgG (05/11/2024 8:02 AM EST) EBV Viral Capsid Ag Ab (IGG) >750.00(H ) U/mL 05/11/2024 5:16 PM EST [employer] Comment: ? U/mL ? Interpretation ? ---- ? <18.00 ? Negative ? 18.00-21.99 ?Equivocal ? >21.99 ? Positive Blood Structure of peripheral vein / Unknown Venipuncture / Unknown 05/11/2024 8:02 AM EST 05/11/2024 8:15 AM EST [facility] - 05/11/2024 5:16 PM EST [facility] Received Date: Yunior Pérez MD LAB BLOOD ORDERABLES Fin al Result Performing Organization Address [facility]/State/[facility] Co de Phone Number [facility] [address], [place] [address], [employer] [facility] [address], [place] [address], * Hepatitis B Core Antibody, Total (05/11/2024 8:02 AM EST) Pathologist [facility] Hepatitis B Core Ab Total NON-REACT COLLINS NON-REACT COLLINS 05/11/2024 11:44 AM EST [employer] Comment: For additional information, please refer to http://education.aCon/faq/UKJ083 (This link is being provided for informational/ educational purposes only.) Blood Structure of peripheral vein / Unknown Venipuncture / Unknown 05/11/2024 8:02 AM EST 05/11/2024 8:15 AM EST Narrative [facility] - 05/11/2024 11:44 AM EST [facility] Received Date: Yunior Pérez MD LAB BLOOD ORDERABLES Fin al Result [facility] 200 [facility] 3rd Floor, [place] [address], [employer] [facility] 200 [facility] 3rd Floor, [place] [address], * (ABNORMAL) Vitamin D, 25-Hydroxy, Total, Immunoassay (05/11/2024 8:02 AM EST) Calcidiol+ercalc idiol 13(L) 30 - 100 ng/mL 05/11/2024 11:52 AM EST [employer] Comment: Vitamin D Status ? 25-OH Vitamin D: Deficiency: ?<20 ng/mL Insufficiency: ? 20 - 29 ng/mL Optimal: ? > or = 30 ng/mL For 25-OH Vitamin D testing on patients on D2-supplementation and patients for whom quantitation of D2 and D3 fractions is required, the [employer]() 25-OH VIT D, (D2,D3), LC/MS/MS is recommended: order code [id number] (patients >2yrs). See Note 1 Note 1 For additional information, please refer to http://education.SimplyGiving.com.SupportPay/faq/ASA621 (This link is being provided for informational/ educational purposes only.) Blood Structure of peripheral vein / Unknown Venipuncture / Unknown 05/11/2024 8:02 AM EST 05/11/2024 8:15 AM EST Narrative [facility] - 05/11/2024 11:52 AM EST [facility] Received Date:[id number] us Yunior Pérez MD LAB BLOOD ORDERABLES Fin al Result Performing Organization Address City/[facility]/ZIP Co de Phone Number [facility] 200 [facility] [address] [facility], [place] [address], [place] [phone] [employer] [facility] [address], [place] [address], [place] [phone] * Mitochondrial Antibody w/Reflex (05/11/2024 8:02 AM EST) Pathologist [facility] Mitochondrial Ab Screen NEGATIVE NEGATIVE 05/14/2024 3:03 PM EST [employer] [facility] Comment: The specimen was negative for cytoplasmic antibodies, however additional staining was observed suggesting the presence of Antinuclear Antibodies. Consider requesting order code 249, SHELLY Screen, IFA with Reflex to Titer and Pattern, or order code [id number], SHELLY Screen, IFA w/reflex Titer/Pattern, and Reflex to Multiplex 11 Ab Tenafly, if clinically indicated. Blood Structure of peripheral vein / Unknown Venipuncture / Unknown 05/11/2024 8:02 AM EST 05/11/2024 8:13 AM EST [facility] - 05/14/2024 3:03 PM EST [facility] Received Date:[id number] us Yunior Pérez MD LAB BLOOD ORDERABLES Fin al Result Performing Organization Address City/[facility] Co de Phone Number [facility] 200 [facility] [address] [facility], [place] [address], [place] [phone] [employer] [facility] [address], [place] [address], * Toxoplasma gondii Antibody, IgG (05/11/2024 8:02 AM EST) [facility] Toxoplasma Ab IgG <7.20 IU/mL 05/11/2024 9:20 PM EST [employer] Comment: ? IU/mL ?Interpretation ? ------ ? <7.20 ?Negative ? 7.20-8.79 ?Equivocal ? >8.79 ?Positive Blood Structure of peripheral vein / Unknown Venipuncture / Unknown 05/11/2024 8:02 AM EST 05/11/2024 8:13 AM EST Narrative [facility] - 05/11/2024 9:20 PM EST [facility] Received Date: us Yunior Pérez MD LAB BLOOD ORDERABLES Fin al Result Performing Organization Address [facility] Co de Phone Number [facility] 200 [facility] 3rd Floor, [place] [address], [employer] [facility] 200 [facility] 3rd Floor, [place] [address], * (ABNORMAL) Hepatitis B Surface Antibody (05/11/2024 8:02 AM EST) Hepatitis B Surface Ab Immunity, Qn <5(L) > OR = 10 mIU/mL 05/11/2024 11:44 AM EST [employer] Comment: PATIENT DOES NOT HAVE IMMUNITY TO HEPATITIS B VIRUS. For additional information, please refer to http://education.aCon/faq/DFF043 (This link is being provided for informational/ educational purposes only). Blood Structure of peripheral vein / Unknown Venipuncture / Unknown 05/11/2024 8:02 AM EST 05/11/2024 8:15 AM EST Narrative [facility] - 05/11/2024 11:44 AM EST [facility] Received Date: us Yunior Pérez MD LAB BLOOD ORDERABLES Fin al Result Performing Organization Address City/[facility] de Phone Number [facility] [address], [place] [address], [employer] [facility] [address], [place] [address], * Hepatitis B Surface Antigen w/Confirmation (05/11/2024 8:02 AM EST) Hepatitis B Surface Antigen NON-REACT COLLINS NON-REACT COLLINS 05/11/2024 11:44 AM EST [employer] Comment: For additional information, please refer to http://education.aCon/faq/MVS856 (This link is being provided for informational/ educational purposes only.) Blood Structure of peripheral vein / Unknown Venipuncture / Unknown 05/11/2024 8:02 AM EST 05/11/2024 8:15 AM EST Narrative [facility] - 05/11/2024 11:44 AM EST [facility] Received Date: Yunior Pérez MD LAB BLOOD ORDERABLES Fin al Result Performing Organization Address [facility] de Phone Number K[facility]LY IZQUIERDO [address], [place] [address], [employer] [facility] [address], [place] [address], * (ABNORMAL) Cytomegalovirus Antibody, IgG (05/11/2024 8:02 AM EST) Cytomegalovirus Antibody (IgG) 6.00(H) U/mL 05/12/2024 4:15 AM EST [employer] Comment: ? U/mL ? Interpretation ? ----- ? <0.60 ? Negative ? 0.60-0.69 ? Equivocal ? > or = 0.70 ?? Positive A positive result indicates that the patient has antibody to CMV. It does not differentiate between an active or past infection. Blood Structure of peripheral vein / Unknown Venipuncture / Unknown 05/11/2024 8:02 AM EST 05/11/2024 8:15 AM EST Narrative [facility] - 05/12/2024 4:15 AM EST [facility] Received Date: us Yunior Pérez MD LAB BLOOD ORDERABLES Fin al Result [facility] 200 [facility] 3rd Floor, [place] [address], [employer] [facility] 200 [facility] 3rd Floor, [place] [address], [place] [phone] * (ABNORMAL) PTT (05/11/2024 8:02 AM EST) aPTT 33.2(H) 23.0 - 32.0 Seconds 05/11/2024 9:04 AM EST [facility] Comment: Current PTT reagent is not sensitive to detect all Lupus Anticoagulant (LA) Inhibitor Cases. ?? If a LA is suspected, please order a Lupus Anticoagulation w/ Reflex Test which is performed at [facility] in [place], [place]. Blood Structure of peripheral vein / Unknown Venipuncture / Unknown 05/11/2024 8:02 AM EST 05/11/2024 8:13 AM EST us Yunior Pérez MD LAB BLOOD ORDERABLES Fin al Result Performing Organization Address [facility]/ZIP Co de Phone Number [facility] [address] [place] [address] * Protime-INR (05/11/2024 8:02 AM EST) PT 11.9 9.6 - 12.4 Seconds 05/11/2024 9:04 AM EST [facility] INR 1.1 0.9 - 1.1 05/11/2024 9:04 AM EST [facility] Comment:The optimal therapeu tic INR range for patients treated with Vitamin K antagonists (VKAS, e.g., Warfarin) is 2.0 to 3.5. Discuss the desired range with your doctor/care team. Blood Structure of peripheral vein / Unknown Venipuncture / Unknown 05/11/2024 8:02 AM EST 05/11/2024 8:13 AM EST Yunior Pérez MD LAB BLOOD ORDERABLES Fin al Result Performing Organization Address City/[facility] Co de Phone Number [facility] [address] [place] [address] * Type and Screen (05/11/2024 8:02 AM [...] Yunior Pérez MD LAB BLOOD BANK TEST ORDE RABLES Edited Result - Final Performing Organization Address [facility]/ZIP Co de Phone Number BLOOD BANK INFCE [address] [place] [address], * Varicella Zoster Antibody, IgG (05/11/2024 8:02 AM EST) [facility] Varicella Zoster Virus Antibody 2.40 S/CO 05/11/2024 5:07 PM EST [employer] Comment: ?Signal to Cut-off ? S/CO ?Interpretation [...] EST 05/11/2024 8:13 AM EST Narrative [facility] - 05/11/2024 5:07 PM EST [facility] Received Date: us Yunior Pérez MD LAB BLOOD ORDERABLES Fin al Result Performing Organization Address City/[facility]/ZIP Co de Phone Number [facility] 200 [facility] 3rd Floor, [place] [address], [place] [phone] [employer] [facility] [address]rd Floor, [address] [facility] [address], [place] [phone] * PSA (05/11/2024 8:02 AM EST) PSA 0.04 <=4.00 ng/mL 05/11/2024 8:53 AM EST [facility] Comment: The total PSA value from this assay system is standardized against the WHO standard. ??The test result will be slightly lower (< 3 %) when compared to the equimolar-standardized total PSA(Bakari Flynn). ??Comparison of Serial PSA results should be [...] MD LAB BLOOD ORDERABLES Fin al Result [facility] [address] [place] [address], * Phosphorus (05/11/2024 8:02 AM EST) Phosphorus 3.2 2.5 - 4.5 mg/dL 05/11/2024 8:57 AM EST [facility] Blood Structure of peripheral vein / Unknown Venipuncture / Unknown 05/11/2024 8:02 AM EST 05/11/2024 8:15 AM EST us Yunior Pérez MD LAB BLOOD ORDERABLES Fin al Result [facility] [address] [place] [address], * Magnesium (05/11/2024 8:02 AM EST) MG 1.9 1.6 - 2.4 mg/dL 05/11/2024 8:57 AM EST [facility] Blood Structure of peripheral vein / Unknown Venipuncture / Unknown 05/11/2024 8:02 AM EST 05/11/2024 8:15 AM EST Yunior Pérez MD LAB BLOOD ORDERABLES Fin al Result [facility] [employer] [facility] [address] [place] [address], [place] * Hemoglobin A1c (05/11/2024 8:02 AM EST) Hemoglobin A1C 4.7 <5.7 % of total Hgb 05/12/2024 10:03 AM EST [employer] Comment: For the purpose of screening for the presence of diabetes: <5.7% ? Consistent with the absence of diabetes 5.7-6.4% ?Consistent with increased risk for diabetes ?(prediabetes) > or =6.5% ??Consistent with diabetes This assay result is consistent with a decreased risk of diabetes. Currently, no consensus exists regarding use of hemoglobin A1c for diagnosis of diabetes in children. According to [place] Diabetes Association (ADA) guidelines, hemoglobin A1c <7.0% represents optimal control in non- diabetic patients. Different metrics may apply to specific patient populations. Standards of Medical Care in Diabetes(ADA). ?? eAG (MG/DL) 88 mg/dL 05/12/2024 10:03 AM EST [employer] eAG (MMOL/L) 4.9 mmol/L 05/12/2024 10:03 AM [employer] Blood Structure of peripheral vein / Unknown Venipuncture / Unknown 05/11/2024 8:02 AM EST 05/11/2024 8:15 AM EST Narrative [facility] - 05/12/2024 10:03 AM EST [facility] Received Date:[id number] us Yunior Pérez MD LAB BLOOD ORDERABLES Fin al Result [facility] 200 [facility] 3rd Floor, [place] [address], [place] [phone] [facility] [employer] [facility] 200 [facility] 3rd Floor, [place] [address], [place] [phone] * Ferritin (05/11/2024 8:02 AM EST) Ferritin 44.9 23.0 - 336.0 ng/mL 05/11/2024 8:57 AM EST [facility] Blood Structure of peripheral vein / Unknown Venipuncture / Unknown 05/11/2024 8:02 AM EST 05/11/2024 8:15 AM EST us Yunior Pérez MD LAB BLOOD ORDERABLES Fin al Result Performing Organization Address [facility]/ZIP Co de Phone Number [facility] [address] [place] [address], * (ABNORMAL) Bilirubin, Direct (05/11/2024 8:02 AM EST) Bilirubin, Direct 0.8(H) <=0.4 mg/dL 05/11/2024 8:57 AM EST [facility] Blood Structure of peripheral vein / Unknown Venipuncture / Unknown 05/11/2024 8:02 AM EST 05/11/2024 8:15 AM EST us Yunior Pérez MD LAB BLOOD ORDERABLES Fin al Result Performing Organization Address City/[facility]/ZIP Co de Phone Number [facility] [address] [place] [address], [place] * Ethanol (05/11/2024 8:02 AM EST) Ethanol <10 <10 mg/dL 05/11/2024 8:53 AM EST [facility] Blood Structure of peripheral vein / Unknown Venipuncture / Unknown 05/11/2024 8:02 AM EST 05/11/2024 8:11 AM EST Yunior Pérez MD LAB BLOOD ORDERABLES Fin al Result [facility] [address] [place] [address], * (ABNORMAL) Lipid panel (05/11/2024 8:02 AM EST) Cholesterol 142 <=199 mg/dL 05/11/2024 8:57 AM EST [facility] Triglycerides 82 <=149 mg/dL 05/11/2024 8:57 AM EST [facility] Cholesterol, HDL 71(H) 40 - 59 mg/dL 05/11/2024 8:57 AM EST [facility] Cholesterol, Non-HDL 71 mg/dL 05/11/2024 8:57 AM EST [facility] LDL Cholesterol 55 <100 mg/dL 05/11/2024 8:57 AM EST [facility] VLDL 16.4 mg/dL 05/11/2024 8:57 AM EST [facility] Cholesterol/HDL Ratio 2.0 <5.0 05/11/2024 8:57 AM EST [facility] Blood Structure of peripheral vein / Unknown Venipuncture / Unknown 05/11/2024 8:02 AM EST 05/11/2024 8:15 AM EST Narrative [facility] [employer] [facility] - 05/11/2024 8:57 AM [...] MD LAB BLOOD ORDERABLES Fin al Result [facility] [address] [place] [address], * (ABNORMAL) Comprehensive Metabolic Panel (05/11/2024 8:02 [...] - 32 mmol/L 05/11/2024 8:57 AM EST [facility] Anion Gap 12 5 - 15 05/11/2024 8:57 AM EST [facility] Glucose 105(H) 65 - 99 mg/dL 05/11/2024 8:57 AM EST [facility] Creatinine 1.16 0.60 - 1.30 mg/dL 05/11/2024 8:57 AM EST [facility] Calcium 9.1 8.6 - 10.5 mg/dL 05/11/2024 8:57 AM EST [facility] Total Protein 7.1 6.0 - 8.0 g/dL 05/11/2024 8:57 AM EST [facility] Albumin 3.8 3.5 - 5.2 g/dL 05/11/2024 8:57 AM EST [facility] Bilirubin, Total 1.5(H) 0.2 - 1.2 mg/dL 05/11/2024 8:57 AM EST [facility] Alkaline Phosphatase 165(H) 35 - 129 U/L 05/11/2024 8:57 AM EST [facility] AST 23 10 - 40 U/L 05/11/2024 8:57 AM EST [facility] ALT 11 10 - 40 U/L 05/11/2024 8:57 AM EST [facility] BUN 16 7 - 23 mg/dL 05/11/2024 8:57 AM EST [facility] eGFR 74 >=60 mL/min/1. 73m2 05/11/2024 8:57 AM EST [facility] Comment:The estimated glomer ular [...] - 4.2 g/dL 05/11/2024 8:57 AM EST [facility] A/G Ratio 1.2(L) 1.5 - 3.0 05/11/2024 8:57 AM EST [facility] Blood Structure of peripheral vein / Unknown Venipuncture / Unknown 05/11/2024 8:02 AM EST 05/11/2024 8:15 AM EST us Yunior Pérez MD LAB BLOOD ORDERABLES Fin al [facility] [address] [place] [address], [place] * LIVER PRE EXTERNAL PANEL (04/16/2024) Sodium [...] Result [facility] from Last 3 Months Insurance Room [address] [place] [address] MEDICARE [facility] [address] [place] [address] MEDICARE [facility] Advance Directives Documents on File Type Date Recorded Patient Licensing Court Magistrate Expl [facility] Care Proxy 05/15/2024 3:29 PM 05-11 Care Teams Hydrographer Relationship Specialty Start Date End Date Gulshan Chanel [address] [place] [address] PCP - General 04/17/24
== END 2024-06-08 10:36 | disposition home or self-care (01) ==
LOC: HO.HNS 09:48
PROVIDERS: PCP Nurse Practitioner Family; Visit Provider Physician Assistant
DX: F10.10 Alcohol abuse, uncomplicated (principal); M54.9 Dorsalgia, unspecified; G89.29 Other chronic pain
CPT/HCPCS: 99213

== ENCOUNTER → 2024-06-08 09:48 | Outpatient (BNVA) | payer MEDICARE, MEDICAID, SELFPAY | PROVIDERS: PCP Nurse Practitioner Family; Visit Provider Physician Assistant | DX: M54.9 Dorsalgia, unspecified (principal); F10.10 Alcohol abuse, uncomplicated; G89.29 Other chronic pain | CPT/HCPCS: 99212 ==

== ENCOUNTER 2024-07-17 06:53 | Outpatient (AMB) | payer MEDICARE, SELFPAY ==
--- OUTSIDE RECORDS SUMMARY | 2024-07-17 06:56 | XMS_ITS | Referral Summary ---
Author Organization [facility] Address [address] [place] [address] Care Team Providers Care Improvement Advisor Name Role Phone Mattiesánchez Gulshan Mariano Primary Care Provider Encounters Date Type Department Care Team Description 06/27/2024 Results Follow-Up [facility] Liver Transplant Services [address] [place] [address] [phone] Angela Weaver RN 06/27/2024 Orders Only [facility] Transplant Department [address] [place] [address] 10222 Provider, MD Timothy 06/19/2024 Telephone [facility] Transplant Department [address] [place] [address] [phone] Angela Weaver RN 06/19/2024 Orders Only [facility] Transplant Department [address] [place] [address] [phone] Angela Weaver, RN Pathological fracture of vertebra, unspecified pathological cause, initial encounter (Primary Dx) 06/13/2024 Orders Only [facility] Transplant Department [address] [place] [address] [phone] Provider, UnknownMD 06/12/2024 Results Follow-Up [facility] Liver Transplant Services [address] [place] [address] [phone] Angela Weaver RN 06/11/2024 Abstract [facility] Transplant Department [address] [place] [address] 94502 Yunior Pérez MD 06/11/2024 External Result Entry [facility] Transplant Department [address] [place] [address] [phone] Angela Weaver, LUDY 06/11/2024 Orders Only [facility] Transplant Department [address] [place] [address] [phone] ProviderTimothy MD 06/11/2024 9:30 AM EDT Clinical Support [facility] [address] [place] [address] [phone] Bella Aguilar RN Encounter for pre-transplant evaluation for liver transplant (Primary Dx) 06/11/2024 10:30 AM EDT Follow-Up [facility] Transplant [facility] [address] [place] [address] [phone] Nathan Ortiz MD Alcohol use disorder, severe, in sustained remission (Primary Dx); Alcoholic cirrhosis of liver with ascites 06/06/2024 Orders Only [facility] Transplant Department [address] [place] [address] [phone] Angela Weaver, LUDY Alcoholic cirrhosis of liver with ascites (Primary Dx); Awaiting organ transplant 05/24/2024 Telephone [facility] Transplant Department [address] [place] [address] [phone] Angela Weaver, LUDY 05/18/2024 Orders Only [facility] Transplant Department [address] [place] [address] 11251 Angela Weaver, LUDY Encounter for pre-transplant evaluation for liver transplant (Primary Dx) 05/16/2024 Orders Only [facility] Transplant Department [address] [place] [address] [phone] Angela Weaver, RN Alcoholic cirrhosis of liver with ascites (Primary Dx) 05/16/2024 Telephone [facility] [address] [place] [address] [phone] Medical Scientific Liaison: Yunior Bravo MD 05/16/2024 Results Follow-Up [facility] Transplant [facility] [address] [place] [address] [phone] Angela Weaver, LUDY 05/16/2024 Telephone [facility] Transplant Department [address] [place] [address] [phone] Angela Weaver, LUDY 05/15/2024 Results Follow-Up [facility] [address] [place] [address] [phone] Angela Weaver, LUDY 05/11/2024 Refill [facility] Transplant Department [address] [place] [address] [phone] Olivier, Alena Hepatic cirrhosis, unspecified hepatic cirrhosis type, unspecified whether ascites present (Primary Dx); Moderate protein-calorie malnutrition 05/11/2024 10:28 AM EST - 05/11/2024 11:59 PM EST Hospital Encounter [facility] CT Scan [address] [place] [address] 23835 Yunior Pérez MD Discharge Disposition: Home or Self Care (01) 05/11/2024 11:45 AM EST Office Visit [facility] [address] [place] [address] [phone] Evelyn Barr RN Awaiting organ transplant (Primary Dx) 05/11/2024 12:15 PM EST Social Work [facility] [address] [place] [address] [phone] Radha Higginbotham LICSW 05/11/2024 1:00 PM EST Office Visit [facility] [address] [place] [address] [phone] Nathan Ortiz MD Encounter for pre-transplant evaluation for chronic liver disease (Primary Dx) 05/11/2024 1:45 PM EST Nutrition [facility] [address] [place] [address] Encounter for pre-transplant evaluation for liver transplant (Primary Dx) 05/11/2024 2:30 PM EST Office Visit [facility] Transplant Services [address] [place] [address] [phone] Preeti Mcdaniel MD Co, Elizabeth Hartmann MD Special screening examination for infectious diseases (Primary Dx); Encounter for pre-transplant evaluation for liver transplant; Cytomegalovirus infection, unspecified cytomegaloviral infection type 05/11/2024 3:15 PM EST Office Visit [facility]plant Services [address] [place] [address] [phone] Kash Ramirez MD PhD Alcoholic cirrhosis of liver with ascites (Primary Dx); Portal hypertension; Moderate protein-calorie malnutrition; Secondary esophageal varices without bleeding 05/11/2024 8:35 AM EST - 05/11/2024 10:27 AM EST Hospital Encounter [facility] Building Cardiac Ultrasound [address] [place] [address] [phone] Yunior Pérez MD Discharge Disposition: Home or Self Care () 05/09/2024 Telephone [facility] Transplant Department [address] [place] [address] [phone] Angela Weaver, LUDY 05/08/2024 Telephone [facility] Transplant Department [address] [place] [address] [phone] Angela Weaver, RN 05/01/2024 Telephone [facility] Transplant Department [address] [place] [address] [phone] Angela Weaver, RN 04/18/2024 Orders Only [facility] Transplant Department [address] [place] [address] [phone] Angela Weaver, RN Encounter for pre-transplant evaluation for liver transplant (Primary Dx) from Last 3 Months Allergies No known active allergies Medications gabapentin (NEURONTIN) 300 mg capsule 5 Active ondansetron ODT (ZOFRAN ODT) 8 mg disintegrating tablet 5 Active albuterol (PROAIR HFA,VENTOLIN HFA) 90 mcg inhaler 5 Active lactulose 10 gram/15 mL solution SMARTSI Milliliter(s ) By Mouth Twice Daily 4 Active furosemide (LASIX) 40 mg tablet 5 Active ibuprofen (MOTRIN) 800 mg tablet 5 Active traMADoL (ULTRAM) 50 mg tablet 5 Active potassium chloride ER (KLOR-CON) 20 mEq tablet 5 Active spironolactone (ALDACTONE) 100 mg tablet 5 Active omeprazole (PriLOSEC) 20 mg capsule 5 Active vitamin B complex tablet extended release Take by mouth. 4 Active zrlgfhl-LLDQ-ptn-va ler-hops-lm 0.78-78-245-200 mg capsule 5 mg. 4 Active magnesium oxide 250 mg magnesium tablet Take 250 mg by mouth once a day. 5 Active thiamine HCl (VITAMIN B1) 100 mg tablet Take 100 mg by mouth once a day. 5 Active food supplemt, lactose-reduced (Boost Plus) 0.06 gram- 1.5 kcal/mL liquidIndications:H epatic cirrhosis, unspecified hepatic cirrhosis type, unspecified whether ascites present (HCC),Moderate protein-calorie malnutrition (HCC) Take 1 Bottle by mouth 2 (two) times a day. 15545 mL 3 5 Active vitamin A 3,000 mcg (10,000 unit) capsule Take 1 capsule (10,000 Units total) by mouth once a day. 90 capsule 1 5 11/13/19 25 Active cholecalciferol (VITAMIN D3) 1,250 mcg (50,000 unit) capsule Take 1 capsule (50,000 Units total) by mouth once a week. 12 capsule 5 08/20/19 25 Active sildenafiL (VIAGRA) 25 mg tablet SMARTSI Tablet(s) By Mouth PRN Active rOPINIRole (REQUIP) 1 mg tablet Take 1/2 or 1 tablet by mouth nightly one hour prior to planned bedtime 30 tablet 3 Active Active Problems Problem Noted Date Diagnosed [...] Sign Reading Time Taken Comments Blood Pressure 114/67 06/11/2024 9:49 AM EDT Pulse 82 06/11/2024 9:49 AM EDT Temperature 36.2 ??C (97.2 ??F) 06/11/2024 9:49 AM ED T Respiratory Rate 20 06/11/2024 9:49 AM EDT Oxygen Saturation 99% 06/11/2024 9:49 AM EDT Inhaled Oxygen Concentration - - Weight 81.7 kg (180 lb 1.9 oz) 06/11/2024 9:49 A M EDT Height 175.3 cm (5' 9.02 ) 05/11/2024 8:38 AM ES T Body Mass Index 26.59 05/11/2024 8:38 AM EST Plan of Treatment Upcoming Encounters Date Type Department Care Team (Late st Contact Info) Description 07/18/2024 1:15 PM EDT Office Visit [facility] [address] [place] [address] Karen Castro PA [address] [place] [address] 07/23/2024 10:30 AM EDT Follow-Up [facility] Liver Transplant Services [address] [place] [address] [phone] Nathan Ortiz MD [address] [place] [address] 08/23/2024 4:30 PM EDT Follow-Up [facility] Liver Transplant Services [address] [place] [address] Yunior Pérez MD [address] [place] [address] 52473 Procedures * Due to [place] state law, this organization might not be sharing negative HIV tests. Procedure Name Priority Date/Time Associated Diagnosis Comments HEART & VASCULAR - SCANNED Routine 06/11/2024 10:14 AM EDT ECG 12-LEAD Routine 06/11/2024 10:03 AM EDT LIVER PRE EXTERNAL PANEL Routine 06/06/2024 3:54 PM EDT TYPE AND SCREEN - TRANSPLANT MANUAL ABSTRACTION Routine 06/06/2024 3:54 PM EDT HEART & VASCULAR - SCANNED Routine 05/28/2024 2:00 PM EDT HEART & VASCULAR - SCANNED Routine 05/28/2024 12:20 PM EDT HEART & VASCULAR - SCANNED Routine 05/28/2024 12:[address] 3 PHASE LIVER MASS WITH PELVIS [...] Encounter for pre-transplant evaluation for liver transplant OMHHZ-6-[id number] (AAT) PHENOTYPE Routine 05/11/2024 8:02 AM EST [...] CYSTATIN C WITH GLOMERULAR FILTRATION RATE, ESTIMATED (EGFR)-[id number] Routine 05/11/2024 8:02 AM EST Encounter for [...] for pre-transplant evaluation for liver transplant [id number] [id number] Routine 05/11/2024 8:02 AM EST Encounter for [...] for liver transplant QUANTIFERON-TB GOLD PLUS, 1 [id number] Routine 05/11/2024 8:02 AM EST Encounter for pre-transplant evaluation for liver transplant RPR (DIAGNOSIS) W/REFLEX TO TITER & TPPA [id number] Routine 05/11/2024 8:02 AM EST Encounter for [...] for pre-transplant evaluation for liver transplant ZINC, PLASMA/[id number] Routine 05/11/2024 8:02 AM EST Encounter for pre-transplant evaluation for liver transplant PSA Routine 05/11/2024 8:02 AM EST Encounter for pre-transplant evaluation for liver transplant from Last 3 Months Results * Due to [place] state law, this organization might not be sharing negative HIV tests. * HEART & VASCULAR - SCANNED (06/11/2024 10:14 AM EDT) Only the most recent of4 resultswithin the time period is included. Anatomical Region Laterality Modality Other us Unknown Provider SCANNED PROCEDURES Edited Re sult - Final * ECG 12 lead (06/11/2024 10:03 AM EDT) Ventricular Rate EKG 66 BPM MUSE EKG Atrial Rate 66 BPM MUSE EKG NE Interval 140 ms MUSE EKG QRS Interval 74 ms MUSE EKG QT Interval 420 ms MUSE EKG QTC Interval 440 ms MUSE EKG P [place] 57 degrees MUSE EKG R [place] 9 degrees MUSE EKG T Wave [place] 59 degrees MUSE EKG 06/11/2024 10:0 3 AM EDT 06/16/2024 5:30 PM EDT Impressions MUSE EKG - 06/16/2024 5:30 PM EDT NORMAL SINUS RHYTHM NONSPECIFIC ST ABNORMALITY LOW VOLTAGE QRS NO PREVIOUS ECGS AVAILABLE Confirmed by Aleman, Alexis-Van ([id number]) on 06/16/2024 5:30:47 PM Paper Cutter Estee LOPEZ ECG ORDERABLES Final Resu lt MUSE EKG * LIVER PRE EXTERNAL PANEL (06/06/2024 3:54 PM EDT) Sodium 132 mmol/L [facility] Potassium 4.0 [facility] Chloride 104 [facility] Carbon Dioxide 18 [facility] Glucose 102 [facility] BUN 12 mg/dL [facility] Creatinine 1.25 mg/dL [facility] Calcium 8.7 mg/dL [facility] Total Protein 6.2 g/dL [facility] Albumin 3.7 g/dL [facility] Bilirubin, Total 1.6 mg/dL [facility] Alkaline Phosphatase 161 U/L [facility] AST 22 U/L [facility] ALT 12 U/L [facility] WBC 7.7 10*3/uL [facility] Hgb 10.7 [facility] Hematocrit 32.3 % [facility] Platelets 178 10*3/uL [facility] INR 1.20 [facility] Alpha Fetoprotein, Tumor Marker 5.8 [facility] 06/06/2024 3:54 PM EDT Yunior Pérez MD LAB BLOOD ORDERABLES Fin al Result Performing Organization Address [facility] Co de Phone Number [facility] * TYPE AND SCREEN - TRANSPLANT MANUAL ABSTRACTION (06/06/2024 3:54 PM EDT) ABO B [facility] RH Negative [facility] Blood, Venous 06/06/2024 3:5 4 PM EDT Unknown Provider LAB HISTORICAL RESULTS Final Result Performing Organization Address City/[facility]/ZIP Co de Phone Number [facility] * CT 3 Phase Liver Mass With [...] obtain the completed interpretation. ? Workstation ID: [id number] Up-to-date CT equipment and radiation dose reduction techniques were employed. CTDIvol: 3.0 - 14.6 mGy. DLP: 1699 mGy-cm. ??The following accession numbers are related to this dose report [id number]: [id number] Narrative 05/14/2024 7:59 PM EST EXAMINATION: CT [...] image 107 series 10. Resulting Agency Comment [id number] Procedure Note Christen Aviles MD - 05/14/2024 [...] possible to obtain thecompleted interpretation. Workstation ID: [id number] Up-to-date CT equipment and radiation dose reduction techniques wereemployed. CTDIvol: 3.0 - 14.6 mGy. DLP: 1699 mGy-cm. The followingaccession numbers are related to this dose report [id number]: [id number] Yunior Pérez MD IMG CT PROCEDURES Final [...] obtain the completed interpretation. ? Workstation ID: [id number] Up-to-date CT equipment and radiation dose reduction techniques were employed. CTDIvol: 3.0 - 14.6 mGy. DLP: 1699 mGy-cm. ??The following accession numbers are related to this dose report [id number]: [id number] Narrative 05/17/2024 4:11 PM EST Indication: ??pre [...] vertebral disease. Bilateral gynecomastia. Resulting Agency Comment [id number] Procedure Note Sidney Delatorre MD PhD - [...] possible to obtain thecompleted interpretation. Workstation ID: [id number] Up-to-date CT equipment and radiation dose reduction techniques wereemployed. CTDIvol: 3.0 - 14.6 mGy. DLP: 1699 mGy-cm. The followingaccession numbers are related to this dose report [id number]: [id number] Yunior Pérez MD IMBre CT PROCEDURES Final [...] BSA 1.85 RIGHT ATRIAL PRESSURE 3 mmHg [facility] RV TISSUE DOPPLER S' 12.0 cm/s [...] Doppler. Myocardial deformation imaging was performed using [employer]. During the study the apical, parasternal, subcostal and suprasternal view was captured. Overall the study quality was adequate. Prior Study No prior study available for comparison. STRESS ECHO OVERALL FINDINGS Normal RV size and systolic function. No significant valvular disease identified. Yunior Pérez MD CV ECHO PROCEDURES Final Result * Comprehensive Drug Panel, Urine (05/11/2024 8:11 AM EST) [facility] Comprehensive Drug Screen Urine DRUGS DETECTED 05/11/2024 2:55 PM EST [email or web address] Comment: NICOTINE GABAPENTIN COTININE CAFFEINE TRAMADOL AND METABOLITE Urine Voided urine specimen / Unknown Non-Blood Collection / Unknown 05/11/2024 8:11 AM EST 05/11/2024 8:16 AM EST [facility] - 05/11/2024 2:55 PM EST [facility] Received Date: Yunior Pérez MD LAB URINE ORDERABLES Fin al Result [facility] [address] [facility] [address], [place] [address], [facility] [address] [facility] [address], [place] [address], * (ABNORMAL) Cystatin C with Glomerular Filtration [...] EST 05/11/2024 8:14 AM EST Narrative [facility] ANNETTA (LAURA) - 05/17/2024 12:21 PM EST [facility] Received Date:[id number] us Yunior Pérez MD LAB BLOOD ORDERABLES King ben Result - Final [facility] LITTLEJOHN (NIEVES) [address] [place] [address], * (ABNORMAL) SHELLY, Titer and Pattern (05/11/2024 8:02 AM EST) SHELLY Titer 1 1:320(H) titer 05/16/2024 12:01 PM EST [facility] Comment: ?Reference Range ?<1:40 ?Negative ?1:40-1:80 ?Low Antibody Level ?>1:80 ?Elevated Antibody Level SHELLY Pattern 1 Nuclear, Homogeneo us(A) 05/16/2024 12:01 PM [facility] Comment: Homogeneous pattern is associated with systemic lupus erythematosus (SLE), drug-induced lupus and juvenile idiopathic arthritis. AC-1: Homogeneous International Consensus on SHELLY Patterns (https://doi.org/10.1515/lvrh-0212-1174) SHELLY Titer 2 1:320(H) titer 05/16/2024 12:01 PM [employer] Comment: ?Reference Range ?<1:40 ?Negative ?1:40-1:80 ?Low Antibody Level ?>1:80 ?Elevated Antibody Level SHELLY Pattern 2 Nuclear, Speckled( A) 05/16/2024 12:01 PM [employer] Comment: Speckled pattern is associated with mixed connective tissue disease (MCTD), systemic lupus erythematosus (SLE), Sjogren's syndrome, dermatomyositis, and systemic sclerosis/polymyositis overlap. AC-2,4,5,29: Speckled International Consensus on SHELLY Patterns (https://doi.org/10.1515/hhvl-5680-5270) Blood Structure of peripheral vein / Unknown Venipuncture / Unknown 05/11/2024 8:02 AM EST 05/11/2024 8:15 AM EST Narrative [facility] - 05/16/2024 12:01 PM EST [facility] Received Date:[id number] Yunior Pérez MD LAB BLOOD ORDERABLES Fin al Result [facility] IZQUIERDO [address] [facility] [address], [address] [place] [address], [place] [phone] [email or web address] [address], [address] [place] [address], [place] [phone] * Phosphatidylethanol (PEth) (05/11/2024 8:02 AM EST) [...] LABORATORY Comment: Authorized individuals can access the Oree Enhanced Report with an [facility] Connect account using the following link. Your local lab can assist you in obtaining the patient report if you don't have a Connect account. [email or web address] PEth Interpretation See Comment 04/22 5:33 PM [...] developed and its performance characteristics determined by [employer]. It has not been cleared or approved by the U.S. Food and Drug Administration. This test was performed in a CLIA-certified laboratory and is intended for clinical purposes. Performed By: [facility] [facility] [address] [place] [address] Broom[employer] Seeder: Yusuf Lomas MD, PhD CLIA Number: [id number] Blood Structure of peripheral vein / Unknown Venipuncture / Unknown 05/11/2024 8:02 AM EST 05/11/2024 8:15 AM EST Yunior Péerz MD LAB BLOOD [place] [address], * Pbzbo-9-Cyhbfrdcbpu (AAT) Phenotype (05/11/2024 8:02 AM EST) Alpha 1 Antitrypsin Phenotype SEE NOTE 05/15/2024 1:10 PM EST [facility] Comment: THIS PATIENT'S DEHFE-4-YATRWPEFCAU PHENOTYPE IS PI*MM. 90% of normal individuals have the MM phenotype, with normal quantitative AAT levels. Many phenotypic patterns have been described, including deficiency states with F, S, Z, or other alleles. As a general estimation, compared to M allele of 100% of normal Q-6-Hgjtybsmcyq protein, the S allele produces approximately 60% and the Z allele 20%. For example, an MS phenotype would have about 80% of normal D-0-Vkczlylvxdz protein level, a 50% contribution from the M allele and 30% from the S allele. A ZZ phenotype would have about 20% of normal levels, a 10% contribution from each Z gene. The F allele has normal R-1-Hrlpmxpyito levels, but the kinetics of elastase inhibition [...] AM EST 05/11/2024 8:13 AM EST [facility] - 05/15/2024 1:10 PM EST [facility] Received Date: Yunior Pérez MD LAB BLOOD ORDERABLES Fin al Result [facility] IZQUIERDO [address] [facility] [address], [place] [address], [place] [phone] [email or web address] [address] [place] [address], [place] [phone] * (ABNORMAL) MMR Panel, IgG (05/11/2024 8:02 AM EST) Pathologist [facility] Measles Antibody (IgG), Immune Status <13.50(L) AU/mL 05/11/2024 5:16 PM EST [facility] Comment: AU/mL ?Interpretation ----- ? <13.50 ? Not consistent with immunity 13.50-16.49 ?Equivocal >16.49 ? Consistent with immunity The presence of measles IgG suggests immunization or past or current infection with measles virus. For additional information, please refer to http://[employer]/faq/MNJ551 (This link is being provided for informational/ educational purposes only.) Mumps Antibody (IgG), Immune Status <9.00(L) AU/mL 05/11/2024 5:16 PM EST [employer] Comment: AU/mL ? Interpretation ------- ? <9.00 ? Not consistent with immunity 9.00-10.99 ?Equivocal >10.99 ?Consistent with immunity The presence of mumps IgG antibody suggests immunization or past or current infection with mumps virus. Rubella Antibody (IgG), Immune Status <0.90(L) Index 05/11/2024 5:16 PM EST [facility] Comment: ?Index ?Interpretation ?----- ?<0.90 ?Not consistent with immunity ?0.90-0.99 ?Equivocal ?> or = 1.00 ?Consistent with immunity The presence of rubella IgG antibody suggests immunization or past or current infection with rubella virus. Blood Structure of peripheral vein / Unknown Venipuncture / Unknown 05/11/2024 8:02 AM EST 05/11/2024 8:15 AM EST Narrative [facility] - 05/11/2024 5:16 PM EST [facility] Received Date: Yunior Pérez MD LAB BLOOD ORDERABLES Fin al Result [facility] IZQUIERDO [address] [facility] [address], [place] [address], [place] [phone] [email or web address] [address] [facility] [address], [place] [address], * (ABNORMAL) Herpes Simplex Virus 1&2, IgG (05/11/2024 8:02 AM EST) HSV 1 IgG Type Specific Ab <0.90 index 05/11/2024 9:20 PM EST [email or web address] HSV 2 IgG Type Specific Ab 1.66(H) index 05/11/2024 9:20 PM EST [email or web address] Comment: ?Index ?Interpretation ?----- ?<0.90 ?Negative ?0.90-1.09 ?Equivocal ?>1.09 ?Positive Low HSV-2 IgG positive results (index values between 1.10-3.00) may represent false positive results. CDC 2020 guidelines recommend confirmatory testing of samples with low-positive HSV-2 IgG results. If clinically indicated, consider adding on HSV-2 IgG Inhibition, by contacting [facility]. For additional information, please refer to: [email or web address]/healthcare- [email or web address]/hqkbovjs-trqhupzpb-vdsrlg/faq/faq73 (This link is being provided for informational/ [...] screening. For additional information, please refer to http://education.[employer]/faq/TIX757 (This link is being provided for informational/ educational purposes only.) ?? Blood Structure of peripheral vein / Unknown Venipuncture / Unknown 05/11/2024 8:02 AM EST 05/11/2024 8:13 AM EST [facility] - 05/11/2024 9:20 PM EST [facility] Received Date: Yunior Pérez MD LAB BLOOD ORDERABLES [facility] al Result [facility] [address] [facility] [address], [place] [address], [email or web address] [address] [facility] [address], [place] [address], * Protein Electrophoresis w/Reflex to Immunofixation, Serum (05/11/2024 8:02 AM EST) Pathologist [facility] Protein, Total 6.9 6.1 - 8.1 g/dL 05/11/2024 10:39 PM EST [email or web address] [facility] Albumin 3.8 3.8 - 4.8 g/dL 05/11/2024 10:39 PM EST [email or web address] Alpha 1 Globulin 0.3 0.2 - 0.3 g/dL 05/11/2024 10:39 PM EST [facility] Alpha 2 Globulin 0.6 0.5 - 0.9 g/dL 05/11/2024 10:39 PM EST [email or web address] [facility] Beta 1 Globulin 0.5 0.4 - 0.6 g/dL 05/11/2024 10:39 PM EST [facility] Beta 2 Globulin 0.3 0.2 - 0.5 g/dL 05/11/2024 10:39 PM EST [facility] Gamma Globulin 1.4 0.8 - 1.7 g/dL 05/11/2024 10:39 PM EST [facility] Interpretation See Comments 05/11/2024 10:39 PM EST [facility] Comment: Normal Serum Protein Electrophoresis Pattern. No abnormal protein bands (M-protein) detected. Blood Structure of peripheral vein / Unknown Venipuncture / Unknown 05/11/2024 8:02 AM EST 05/11/2024 8:14 AM EST Narrative [facility] [place] - 05/11/2024 10:39 PM EST [facility] Received Date:[id number] us Yunior Pérez MD LAB BLOOD ORDERABLES Fin al Result Performing Organization Address [facility] Co de Phone Number [facility] [place] [address], [place] [address], [place] [phone] [facility] [address], [place] [address], [place] [phone] * RPR (Diagnosis) w/Reflex to Titer & TPPA Confirm (05/11/2024 8:02 AM EST) RPR W/Refl Titer NON-REACT COLLINS NON-REACT COLLINS 05/11/2024 1:09 PM EST [facility] Blood Structure of peripheral vein / Unknown Venipuncture / Unknown 05/11/2024 8:02 AM EST 05/11/2024 8:15 AM EST Narrative [facility] [place] - 05/11/2024 1:09 PM EST [facility] Received Date:[id number] us Yunior Pérez MD LAB BLOOD ORDERABLES Fin al Result Performing Organization Address City/[facility]/ZIP Co de Phone Number [facility] [place] [address], [place] [address], [place] [phone] [facility] [address], [place] [address], [place] [phone] * (ABNORMAL) Iron Saturation (05/11/2024 8:02 AM EST) Pathologist [facility] Iron Saturation 6(L) 20 - 50 % 8:57 AM EST [facility] Iron 25(L) 45 - 160 ug/dL 05/11/2024 8:57 AM EST [facility] Transferrin 316 200 - 360 mg/dL 05/11/2024 8:57 AM EST [facility] Total Iron Binding Capacity 395 255 - 450 ug/dL 05/11/2024 8:57 AM EST [facility] Blood Structure of peripheral vein / Unknown Venipuncture / Unknown 05/11/2024 8:02 AM EST 05/11/2024 8:15 AM EST Yunior Pérez MD LAB BLOOD ORDERABLES Fin al Result [facility] [address] [place] [address], [place] * TSH Reflex Free T4 (05/11/2024 8:02 AM EST) Pathologist [facility] TSH 2.130 0.280 - 3.890 uIU/mL 05/11/2024 8:57 AM EST [facility] Blood Structure of peripheral vein / Unknown Venipuncture / Unknown 05/11/2024 8:02 AM EST 05/11/2024 8:15 AM EST Yunior Pérez MD LAB BLOOD ORDERABLES Fin al Result [facility] [address] [place] [address], [place] * QuantiFERON-TB Gold Plus, 1 Tube (05/11/2024 8:02 AM EST) [facility] QuantiFERON-TB Gold Plus NEGATIVE NEGATIVE 05/14/2024 2:04 PM EST [email or web address] Comment: Negative test result. M. tuberculosis complex infection unlikely. NIL 0.01 IU/mL 05/14/2024 2:04 PM EST [email or web address] Mitogen-NIL 9.32 IU/mL 05/14/2024 2:04 PM EST [email or web address] TB1-NIL 0.00 IU/mL 05/14/2024 2:04 PM EST [email or web address] TB2-NIL 0.01 IU/mL 05/14/2024 2:04 PM EST [email or web address] Comment: The Nil tube value reflects [...] T-lymphocytes. For additional information, please refer to https://education.MiSiedo/faq/UIR208 (This link is being provided for informational/ educational purposes only.) Blood Structure of peripheral vein / Unknown Venipuncture / Unknown 05/11/2024 8:02 AM EST 05/11/2024 8:10 AM EST Narrative [facility] - 05/14/2024 2:04 PM EST [facility] Received Date: Yunior Pérez MD LAB BLOOD ORDERABLES Fin al Result [facility] 200 [facility] 3rd Floor, [place] [address], [place] [phone] [email or web address] [address] [facility] 3rd Floor, [place] [address], [place] [phone] * (ABNORMAL) CBC Auto Differential (05/11/2024 8:02 AM EST) WBC 8.6 3.8 - 10.8 10*3/uL 05/11/2024 8:22 AM EST [facility] RBC 3.56(L) 4.20 - 5.80 10*6/uL 05/11/2024 8:22 AM EST [facility] Hemoglobin 11.1(L) 13.2 - 17.1 g/dL 05/11/2024 8:22 AM EST [facility] Hematocrit 32.7(L) 38.5 - 50.0 % 05/11/2024 8:22 AM EST [facility] MCV 91.9 80.0 - 100.0 fL 05/11/2024 8:22 AM EST [facility] MCH 31.2 27.0 - 33.0 pg 05/11/2024 8:22 AM EST [facility] MCHC 33.9 32.0 - 36.0 g/dL 05/11/2024 8:22 AM EST [facility] RDW 15.6(H) [...] % 12.6 % 05/11/2024 8:22 AM EST [facility] Eosinophil % 2.0 % 05/11/2024 8:22 AM EST [facility] Basophil % 1.0 % 05/11/2024 8:22 AM EST [facility] Neutrophil # 5.60 1.50 - 7.80 10*3/uL 05/11/2024 8:22 AM EST [facility] Immature Grans # 0.03 <=0.03 10*3/uL 05/11/2024 8:22 AM EST [facility] Lymphocyte # 1.60 0.85 - 3.90 10*3/uL 05/11/2024 8:22 AM EST [facility] Monocyte # 1.10(H) 0.20 - 0.95 10*3/uL 05/11/2024 8:22 AM EST [facility] Eosinophil # 0.20 0.02 - 0.50 10*3/uL 05/11/2024 8:22 AM EST [facility] Basophil # 0.10 0.00 - 0.20 10*3/uL 05/11/2024 8:22 AM EST [facility] nRBC % 0.0 /100 WBCs 05/11/2024 8:22 AM EST [facility] nRBC # <0.01 <0.01 10*3/uL 05/11/2024 8:22 AM EST [email or web address] Blood Structure of peripheral vein / Unknown Venipuncture / Unknown 05/11/2024 8:02 AM EST 05/11/2024 8:15 AM EST Yunior Pérez MD LAB BLOOD ORDERABLES Fin al Result [facility] [address] [place] [address], * Smooth Muscle Antibody Screen w/Reflex to Titer (05/11/2024 8:02 AM EST) Smooth Muscle AB Screen NEGATIVE NEGATIVE 05/14/2024 3:03 PM EST [facility] Comment: The specimen was negative for cytoplasmic antibodies, however additional staining was observed suggesting the presence of Antinuclear Antibodies. Consider requesting order code 249, SHELLY Screen, IFA with Reflex to Titer and Pattern, or order code [id number], SHELLY Screen, IFA w/reflex Titer/Pattern, and Reflex to Multiplex 11 Ab [place], if clinically indicated. Blood Structure of peripheral vein / Unknown Venipuncture / Unknown 05/11/2024 8:02 AM EST 05/11/2024 8:15 AM EST [facility] - 05/14/2024 3:03 PM EST [facility] Received Date: Yunior Pérez MD LAB BLOOD ORDERABLES Fin al Result [facility] 200 [facility] 3rd Floor, [place] [address], [facility] 200 [facility] 3rd Floor, [place] [address], * Hepatitis C Antibody w/Reflex to PCR (05/11/2024 8:02 AM EST) Hepatitis C Antibody NON-REACT COLLINS NON-REACT COLLINS 05/11/2024 11:44 AM EST [facility] Comment: HCV antibody was non-reactive. There is no laboratory evidence of HCV infection. In most cases, no further action is required. However, if recent HCV exposure is suspected, a test for HCV RNA (test code 12745) is suggested. For additional information please refer to http://education.MiSiedo/faq/YCZ62p7 (This link is being provided for informational/ educational purposes only.) Blood Structure of peripheral vein / Unknown Venipuncture / Unknown 05/11/2024 8:02 AM EST 05/11/2024 8:15 AM EST [facility] - 05/11/2024 11:44 AM EST [facility] Received Date:[id number] us Yunior Pérez MD LAB BLOOD ORDERABLES Fin al Result [facility] 200 [facility] 3rd Floor, [place] [address], [place] [phone] [facility] [address], [place] [address], [place] [phone] * Hepatitis A Antibody, Total (05/11/2024 8:02 AM EST) Hepatitis A Ab, Total NON-REACT COLLINS NON-REACT COLLINS 05/11/2024 11:44 AM EST [facility] Comment: For additional information, please refer to http://education.MiSiedo/faq/ZBF169 (This link is being provided for informational/ educational purposes only.) Blood Structure of peripheral vein / Unknown Venipuncture / Unknown 05/11/2024 8:02 AM EST 05/11/2024 8:15 AM EST [employer] [facility] - 05/11/2024 11:44 AM EST [facility] Received Date:[id number] us Yunior Pérez MD LAB BLOOD ORDERABLES Fin al Result Performing Organization Address City/[facility]/ZIP Co de Phone Number [facility] 200 [facility] 3rd Floor, [place] [address], [place] [phone] [email or web address] [address] [facility] 3rd Floor, [place] [address], [place] [phone] * Histoplasma Antibody Panel, CF & ID (05/11/2024 8:02 AM EST) Histoplasma capsulatum yeast phase Ab <1:8 <1:8 NA 05/17/2024 12:21 PM EST [facility] (LAURA) Histoplasma capsulatum mycelial phase Ab <1:8 <1:8 NA 05/17/2024 12:21 PM EST [facility] (NIEVES) Comment: Interpretive Criteria: ?<1:8 - Antibody [...] analytical performance characteristics have been determined by [facility], [place], [place]. It has not been cleared or approved by the FDA. This assay has been validated pursuant to the CLIA regulations and is used for clinical purposes. Histoplasma capsulatum M Antibody Negative Negative 05/17/2024 12:21 PM EST [facility] (NIEVES) Histoplasma capsulatum H Antibody Negative Negative 05/17/2024 12:21 PM EST [facility] (NIEVES) Comment: This immunodiffusion assay is highly [...] BLOOD ORDERABLES Final Res ult [facility] POND) [address] [employer], [place] , [place] * (ABNORMAL) SHELLY Screen, Reflex to Titer, IFA (05/11/2024 8:02 AM EST) SHELLY Screen, IFA POSITIVE (A) NEGATIVE 05/16/2024 12:00 PM EST [facility] Comment: SHELLY IFA is a first line screen for detecting the presence of up to approximately 150 autoantibodies in various autoimmune diseases. A positive SHELLY IFA result is suggestive of autoimmune disease and reflexes to titer and pattern. Further laboratory testing may be considered if clinically indicated. For additional information, please refer to http://education.Britt[employer]/faq/LGM363 (This link is being provided for informational/ educational purposes only.) ?? Blood Structure of peripheral vein / Unknown Venipuncture / Unknown 05/11/2024 8:02 AM EST 05/11/2024 8:15 AM EST Narrative [facility] [place] - 05/16/2024 12:00 PM EST [facility] Received Date:[id number] us Yunior Pérez MD LAB BLOOD ORDERABLES Fin al Result [address] [facility], [place] [address], [facility] [address], [place] [address], [place] [phone] * Ceruloplasmin (05/11/2024 8:02 AM EST) Pathologist [facility] Ceruloplasmin 19 14 - 30 mg/dL 05/13/2024 1:07 AM EST [facility] Blood Structure of peripheral vein / Unknown Venipuncture / Unknown 05/11/2024 8:02 AM EST 05/11/2024 8:15 AM EST Narrative [facility] [place] - 05/13/2024 1:07 AM EST [facility] Received Date:[id number] us Yunior Pérez MD LAB BLOOD ORDERABLES Fin al Result Performing Organization Address City/[facility]/ZIP Co de Phone Number [address], [place] [address], [place] [phone] [email or web address] [address], [place] [address], [place] [phone] * (ABNORMAL) Zinc (05/11/2024 8:02 AM EST) Zinc 45(L) 60 - 130 mcg/dL 05/15/2024 11:53 AM EST [facility] MENDEZ[facility]rii KpNIEVES) Comment: This test was developed and its analytical performance characteristics have been determined by [facility] [place], [place]. It has not been cleared or approved by the U.S. Food and Drug Administration. This assay has been validated pursuant to the CLIA regulations and is used for clinical purposes. Blood Structure of peripheral vein / Unknown Venipuncture / Unknown 05/11/2024 8:02 AM EST 05/11/2024 8:15 AM EST Narrative [facility] GoodrichNIEVES) - 05/15/2024 11:53 AM EST [facility] Received Date: Yunior Pérez MD LAB BLOOD ORDERABLES Fin al Result [facility] POND) [address] [place] [address], [place] * (ABNORMAL) Vitamin A (Retinol) (05/11/2024 8:02 AM EST) Vitamin A (Retinol) 15(L) 38 - 98 mcg/dL 05/14/2024 11:11 PM EST [facility] DAVILAOLS) Comment: Vitamin supplementation within 24 hours prior to blood draw may affect the accuracy of the results. This test was developed and its analytical performance characteristics have been determined by [facility] [place], [place]. It has not been cleared or approved by the U.S. Food and Drug Administration. This assay has been validated pursuant to the CLIA regulations and is used for clinical purposes. Blood Structure of peripheral vein / Unknown Venipuncture / Unknown 05/11/2024 8:02 AM EST 05/11/2024 8:10 AM EST Narrative [facility] POND) - 05/14/2024 11:11 PM EST [facility] Received Date:[id number] us Yunior Pérez MD LAB BLOOD ORDERABLES Fin al Result Performing Organization Address [facility] Co de Phone Number KIMBERLY POND) [address] [place] [address], [place] * (ABNORMAL) AFP Tumor Marker (05/11/2024 8:02 AM EST) Pathologist [facility] Alpha Fetoprotein, Tumor Marker 7.4(H) <6.1 ng/mL 05/14/2024 1:16 PM EST [facility] Comment: This test was performed using the Dada [place] chemiluminescent method. Values obtained from different assay methods cannot be used interchangeably. AFP levels, regardless of value, should not be interpreted as absolute evidence of the presence or absence of disease. Blood Structure of peripheral vein / Unknown Venipuncture / Unknown 05/11/2024 8:02 AM EST 05/11/2024 8:15 AM EST Narrative [facility] [place] - 05/14/2024 1:16 PM EST [facility] Received Date:[id number] us Yunior Pérez MD LAB BLOOD ORDERABLES Fin al Result Performing Organization Address [facility] de Phone Number [facility] [place] 200 [facility] [address]rd Floor, [place] [address], [facility] 200 [facility] 3rd Floor, [place] [address], * (ABNORMAL) Nikhil-Richardson Virus VCA, IgG (05/11/2024 8:02 AM EST) [facility] EBV Viral Capsid Ag Ab (IGG) >750.00(H ) U/mL 05/11/2024 5:16 PM EST [facility] Comment: ? U/mL ? Interpretation ? ---- ? <18.00 ? Negative ? 18.00-21.99 ?Equivocal ? >21.99 ? Positive Blood Structure of peripheral vein / Unknown Venipuncture / Unknown 05/11/2024 8:02 AM EST 05/11/2024 8:15 AM EST Narrative [facility] - 05/11/2024 5:16 PM EST [facility] Received Date: us Yunior Pérez MD LAB BLOOD ORDERABLES Fin al Result Performing Organization Address [facility]/ZIP Co de Phone Number [facility] [place] [address], [place] [address], [facility] [address], [place] [address], [place] [phone] * Hepatitis B Core Antibody, Total (05/11/2024 8:02 AM EST) Hepatitis B Core Ab Total NON-REACT COLLINS NON-REACT COLLINS 05/11/2024 11:44 AM EST [facility] Comment: For additional information, please refer to http://education.[employer]/faq/MUN812 (This link is being provided for informational/ educational purposes only.) Blood Structure of peripheral vein / Unknown Venipuncture / Unknown 05/11/2024 8:02 AM EST 05/11/2024 8:15 AM EST Narrative [facility] - 05/11/2024 11:44 AM EST [facility] Received Date: us Yunior Pérez MD LAB BLOOD ORDERABLES Fin al Result Performing Organization Address [facility]/ZIP Co de Phone Number [facility] [place] [address], [place] [address], [facility] [address] [facility] 3rd Floor, [address] [place] [address], * (ABNORMAL) Vitamin D, 25-Hydroxy, Total, Immunoassay (05/11/2024 8:02 AM EST) Calcidiol+ercalc idiol 13(L) 30 - 100 ng/mL 05/11/2024 11:52 AM EST [facility] Comment: Vitamin D Status ? 25-OH Vitamin D: Deficiency: ?<20 ng/mL Insufficiency: ? 20 - 29 ng/mL Optimal: ? > or = 30 ng/mL For 25-OH Vitamin D testing on patients on D2-supplementation and patients for whom quantitation of D2 and D3 fractions is required, the QuestAssureD(TM) 25-OH VIT D, (D2,D3), LC/MS/MS is recommended: order code [id number] (patients >2yrs). See Note 1 Note 1 For additional information, please refer to http://education.Britt[employer]/faq/XKN343 (This link is being provided for informational/ educational purposes only.) Blood Structure of peripheral vein / Unknown Venipuncture / Unknown 05/11/2024 8:02 AM EST 05/11/2024 8:15 AM EST Narrative [facility] - 05/11/2024 11:52 AM EST [facility] Received Date: us Yunior Pérez MD LAB BLOOD ORDERABLES Fin al Result [facility] 200 [facility] 3rd Floor, [place] [address], [place] [phone] [facility] [address] [facility] 3rd Floor, [place] [address], [place] [phone] * Mitochondrial Antibody w/Reflex (05/11/2024 8:02 AM EST) Pathologist [facility] Mitochondrial Ab Screen NEGATIVE NEGATIVE 05/14/2024 3:03 PM EST [facility] Comment: The specimen was negative for cytoplasmic antibodies, however additional staining was observed suggesting the presence of Antinuclear Antibodies. Consider requesting order code 249, SHELLY Screen, IFA with Reflex to Titer and Pattern, or order code [id number], SHELLY Screen, IFA w/reflex Titer/Pattern, and Reflex to Multiplex 11 Ab [place], if clinically indicated. Blood Structure of peripheral vein / Unknown Venipuncture / Unknown 05/11/2024 8:02 AM EST 05/11/2024 8:13 AM EST [facility] - 05/14/2024 3:03 PM EST [facility] Received Date: Yunior Pérez MD LAB BLOOD ORDERABLES Fin al Result [facility] 200 [facility] 3rd Floor, [place] [address], [facility] [address] [facility] 3rd Floor, [place] [address], * Toxoplasma gondii Antibody, IgG (05/11/2024 8:02 AM EST) [facility] Toxoplasma Ab IgG <7.20 IU/mL 05/11/2024 9:20 PM EST [facility] Comment: ? IU/mL ?Interpretation ? ------ ? <7.20 ?Negative ? 7.20-8.79 ?Equivocal ? >8.79 ?Positive Blood Structure of peripheral vein / Unknown Venipuncture / Unknown 05/11/2024 8:02 AM EST 05/11/2024 8:13 AM EST [facility] - 05/11/2024 9:20 PM EST [facility] Received Date:[id number] us Yunior Pérez MD LAB BLOOD ORDERABLES Fin al Result Performing Organization Address City/[facility]/ZIP Co de Phone Number [facility] [address], [place] [address], [email or web address] [address], [place] [address], * (ABNORMAL) Hepatitis B Surface Antibody (05/11/2024 8:02 AM EST) Pathologist [facility] Hepatitis B Surface Ab Immunity, Qn <5(L) > OR = 10 mIU/mL 05/11/2024 11:44 AM EST [facility] Comment: PATIENT DOES NOT HAVE IMMUNITY TO HEPATITIS B VIRUS. For additional information, please refer to http://education.MiSiedo/faq/BDL577 (This link is being provided for informational/ educational purposes only). Blood Structure of peripheral vein / Unknown Venipuncture / Unknown 05/11/2024 8:02 AM EST 05/11/2024 8:15 AM EST [facility] - 05/11/2024 11:44 AM EST [facility] Received Date:[id number] us Yunior Pérez MD LAB BLOOD ORDERABLES Fin al Result Performing Organization Address City/[facility]/ZIP Co de Phone Number [facility] [address], [place] [address], [place] [phone] [email or web address] [facility] [address], [place] [address], * Hepatitis B Surface Antigen w/Confirmation (05/11/2024 8:02 AM EST) Pathologist [facility] Hepatitis B Surface Antigen NON-REACT COLLINS NON-REACT COLLINS 05/11/2024 11:44 AM EST [facility] Comment: For additional information, please refer to http://education.MiSiedo/faq/VLY128 (This link is being provided for informational/ educational purposes only.) Blood Structure of peripheral vein / Unknown Venipuncture / Unknown 05/11/2024 8:02 AM EST 05/11/2024 8:15 AM EST Narrative [facility] IZQUIERDO - 05/11/2024 11:44 AM EST [facility] Received Date: Yunior Pérez MD LAB BLOOD ORDERABLES Fin al Result [facility] [place] 200 [facility] 3rd Floor, [place] [address], [facility] [address], [place] [address], * (ABNORMAL) Cytomegalovirus Antibody, IgG (05/11/2024 8:02 AM EST) Cytomegalovirus Antibody (IgG) 6.00(H) U/mL 05/12/2024 4:15 AM EST [facility] Comment: ? U/mL ? Interpretation ? ----- ? <0.60 ? Negative ? 0.60-0.69 ? Equivocal ? > or = 0.70 ?? Positive A positive result indicates that the patient has antibody to CMV. It does not differentiate between an active or past infection. Blood Structure of peripheral vein / Unknown Venipuncture / Unknown 05/11/2024 8:02 AM EST 05/11/2024 8:15 AM EST Narrative [facility] - 05/12/2024 4:15 AM EST [facility] Received Date: us Yunior Pérez MD LAB BLOOD ORDERABLES Fin al Result [facility] 200 [facility] [address]rd Floor, [place] [address], [place] [phone] [email or web address] [address] [facility] 3rd Floor, [place] [address], [place] [phone] * (ABNORMAL) PTT (05/11/2024 8:02 AM EST) aPTT 33.2(H) 23.0 - 32.0 Seconds 05/11/2024 9:04 AM EST [facility] Comment: Current PTT reagent is not sensitive to detect all Lupus Anticoagulant (LA) Inhibitor Cases. ?? If a LA is suspected, please order a Lupus Anticoagulation w/ Reflex Test which is performed at [facility] in [place], [place]. Blood Structure of peripheral vein / Unknown Venipuncture / Unknown 05/11/2024 8:02 AM EST 05/11/2024 8:13 AM EST us Yunior Pérez MD LAB BLOOD ORDERABLES Fin al Result [facility] [address] [place] [address], * Protime-INR (05/11/2024 8:02 AM EST) PT 11.9 9.6 - 12.4 Seconds 05/11/2024 9:04 AM EST [facility] INR 1.1 0.9 - 1.1 05/11/2024 9:04 AM EST [facility] Comment:The optimal therapeu tic INR range for patients treated with Vitamin K antagonists (VKAS, e.g., Warfarin) is 2.0 to 3.5. Discuss the desired range with your doctor/care team. Blood Structure of peripheral vein / Unknown Venipuncture / Unknown 05/11/2024 8:02 AM EST 05/11/2024 8:13 AM EST Yunior Pérez MD LAB BLOOD ORDERABLES Fin al Result [facility] [address] [place] [address], * Type and Screen (05/11/2024 8:02 AM EST) ABO Blood Type B 05/11/2024 9:09 AM EST [facility] RH Type Negative 05/11/2024 9:09 AM EST [facility] Expiration Date/Time 2024-05-14 23:59 05/11/2024 9:09 AM EST [facility] Antibody Screen Negative 05/11/2024 9:09 AM EST [facility] Blood Structure of peripheral vein / Unknown Venipuncture / Unknown 05/11/2024 8:02 AM EST 05/11/2024 8:06 AM EST Yunior Pérez MD LAB BLOOD BANK TEST HOLLY STORM Edited Result - Final [facility] [address] [place] [address], * Varicella Zoster Antibody, IgG (05/11/2024 8:02 AM EST) Varicella Zoster Virus Antibody 2.40 S/CO 05/11/2024 5:07 PM EST [facility] Comment: ?Signal to Cut-off ? S/CO ?Interpretation [...] EST 05/11/2024 8:13 AM EST Narrative [facility] - 05/11/2024 5:07 PM EST [facility] Received Date: Yunior Pérez MD LAB BLOOD ORDERABLES Fin al Result [facility] [address] [facility] [address], [place] [address], [email or web address] [facility] [address] [facility] [address], [place] [address], * PSA (05/11/2024 8:02 AM EST) PSA 0.04 <=4.00 ng/mL 05/11/2024 8:53 AM EST [facility] Comment: The total PSA [...] ORDERABLES Fin al Result Performing Organization Address City/[facility] Co de Phone Number [facility] [address] [place] [address], * Phosphorus (05/11/2024 8:02 AM EST) Phosphorus 3.2 2.5 - 4.5 mg/dL 05/11/2024 8:57 AM EST [facility] Blood Structure of peripheral vein / Unknown Venipuncture / Unknown 05/11/2024 8:02 AM EST 05/11/2024 8:15 AM EST us Yunior Pérez MD LAB BLOOD ORDERABLES Fin al Result [facility] [address] [place] [address], [place] * Magnesium (05/11/2024 8:02 AM EST) MG 1.9 1.6 - 2.4 mg/dL 05/11/2024 8:57 AM EST [facility] Blood Structure of peripheral vein / Unknown Venipuncture / Unknown 05/11/2024 8:02 AM EST 05/11/2024 8:15 AM EST us Yunior Pérez MD LAB BLOOD ORDERABLES Fin al Result [email or web address] [address] [place] [address], [place] * Hemoglobin A1c (05/11/2024 8:02 AM EST) Hemoglobin A1C 4.7 <5.7 % of total Hgb 05/12/2024 10:03 AM EST [employer] [employer] Comment: For the purpose of screening for the presence of diabetes: <5.7% ? Consistent with the absence of diabetes 5.7-6.4% ?Consistent with increased risk for diabetes ?(prediabetes) > or =6.5% ??Consistent with diabetes This assay result is consistent with a decreased risk of diabetes. Currently, no consensus exists regarding use of hemoglobin A1c for diagnosis of diabetes in children. According to [place] Diabetes Association (ADA) guidelines, hemoglobin A1c <7.0% represents optimal control in non- diabetic patients. Different metrics may apply to specific patient populations. Standards of Medical Care in Diabetes(ADA). ?? eAG (MG/DL) 88 mg/dL 05/12/2024 10:03 AM EST [facility] eAG (MMOL/L) 4.9 mmol/L 05/12/2024 10:03 AM [facility] Blood Structure of peripheral vein / Unknown Venipuncture / Unknown 05/11/2024 8:02 AM EST 05/11/2024 8:15 AM EST Narrative [facility] - 05/12/2024 10:03 AM EST [facility] Received Date: us Yunior Pérez MD LAB BLOOD ORDERABLES Fin al Result [facility] [address] [facility] [address], [place] [address], [facility] [address] [facility] [address], [place] [address], * Ferritin (05/11/2024 8:02 AM EST) Ferritin 44.9 23.0 - 336.0 ng/mL 05/11/2024 8:57 AM EST [facility] Blood Structure of peripheral vein / Unknown Venipuncture / Unknown 05/11/2024 8:02 AM EST 05/11/2024 8:15 AM EST us Yunior Pérez MD LAB BLOOD ORDERABLES Fin al Result [facility] [address] [place] [address], [place] * (ABNORMAL) Bilirubin, Direct (05/11/2024 8:02 AM EST) Bilirubin, Direct 0.8(H) <=0.4 mg/dL 05/11/2024 8:57 AM EST [facility] Blood Structure of peripheral vein / Unknown Venipuncture / Unknown 05/11/2024 8:02 AM EST 05/11/2024 8:15 AM EST us Yunior Pérez MD LAB BLOOD ORDERABLES Fin al Result [facility] [address] [place] [address], [place] * Ethanol (05/11/2024 8:02 AM EST) Ethanol <10 <10 mg/dL 05/11/2024 8:53 AM EST [facility] Blood Structure of peripheral vein / Unknown Venipuncture / Unknown 05/11/2024 8:02 AM EST 05/11/2024 8:11 AM EST us Yunior Pérez MD LAB BLOOD ORDERABLES Fin al Result [facility] [address] [place] [address], * (ABNORMAL) Lipid panel (05/11/2024 8:02 AM EST) Cholesterol 142 <=199 mg/dL 05/11/2024 8:57 AM EST [facility] Triglycerides 82 <=149 mg/dL 05/11/2024 8:57 AM EST [facility] Cholesterol, HDL 71(H) 40 - 59 mg/dL 05/11/2024 8:57 AM EST [facility] Cholesterol, Non-HDL 71 mg/dL 05/11/2024 8:57 AM EST [facility] LDL Cholesterol 55 <100 mg/dL 05/11/2024 8:57 AM EST [facility] VLDL 16.4 mg/dL 05/11/2024 8:57 AM EST [facility] Cholesterol/HDL Ratio 2.0 <5.0 05/11/2024 8:57 AM EST [facility] Blood Structure of peripheral vein / Unknown Venipuncture / Unknown 05/11/2024 8:02 AM EST 05/11/2024 8:15 AM EST [facility] - 05/11/2024 8:57 AM [...] BLOOD ORDERABLES Fin al Result [facility] [address] [place] [address], * (ABNORMAL) Comprehensive Metabolic Panel (05/11/2024 8:02 [...] - 10.5 mg/dL 05/11/2024 8:57 AM EST [facility] Total Protein 7.1 6.0 - 8.0 g/dL 05/11/2024 8:57 AM EST [facility] Albumin 3.8 3.5 - 5.2 g/dL 05/11/2024 8:57 AM EST [facility] Bilirubin, Total 1.5(H) 0.2 - 1.2 mg/dL 05/11/2024 8:57 AM EST [facility] Alkaline Phosphatase 165(H) 35 - 129 U/L 05/11/2024 8:57 AM EST [facility] AST 23 10 - 40 U/L 05/11/2024 8:57 AM EST [facility] ALT 11 10 - 40 U/L 05/11/2024 8:57 AM EST [facility] BUN 16 7 - 23 mg/dL 05/11/2024 8:57 AM EST [facility] eGFR 74 >=60 mL/min/1. 73m2 05/11/2024 8:57 AM EST [email or web address] Comment:The estimated glomer ular [...] - 4.2 g/dL 05/11/2024 8:57 AM EST [facility] A/G Ratio 1.2(L) 1.5 - 3.0 05/11/2024 8:57 AM EST [facility] Blood Structure of peripheral vein / Unknown Venipuncture / Unknown 05/11/2024 8:02 AM EST 05/11/2024 8:15 AM EST us Yunior Pérez MD LAB BLOOD ORDERABLES Fin al Result [facility] [address] [place] [address], from Last 3 Months Insurance MEDICARE [facility] MEDICARE [facility] Advance Directives Documents on File Type Date Recorded Patient Catalogue And Special Products Manager Expl anation Health Care Proxy 05/15/2024 3:29 PM 05-11 Care Teams Improvement Advisor Relationship Specialty Start Date End Date Gulshan Chanel [address] [place] [address] PCP - General 04/17/24
--- OUTSIDE RECORDS SUMMARY | 2024-07-17 06:56 | XMS_ITS | Encounter Summary ---
Author Organization [facility] Address [address] [place] [address] Care Team Providers Care Animal Behaviourist Name Role Phone Gulshan Chanel Primary Care Provider +1- [phone] Encounter Details Date Type Department Care Team (Late st Contact Info) Description 06/12/2024 Results Follow-Up [facility] Liver Transplant Services [address] [place] [address] Angela Weaver RN Social History Tobacco Use [...] Encounter Note - Yunior Pérez MD - 06/12/2024 8:54 AM EDT Great thanks documented in this encounter Plan of Treatment Upcoming Encounters Date Type Department Care Team (Late st Contact Info) Description 07/18/2024 1:15 PM EDT Office Visit [facility] A [address] [place] [address] Karen Castro PA [address] [place] [address] 07/23/2024 10:30 AM EDT Follow-Up [facility] Transplant Services [address] [place] [address] Nathan Ortiz MD [address] [place] [address] 08/23/2024 4:30 PM EDT Follow-Up [facility] Transplant Services [address] [place] [address] Yunior Pérez MD [address] [place] [address] documented as of this encounter Visit Diagnoses Not on filedocumented in this encounter Care Teams Animal Behaviourist Relationship Specialty Start Date End Date Gulshan Chanel [address] [place] [address] PCP - General 04/17/24 documented as of this encounter
--- OUTSIDE RECORDS SUMMARY | 2024-07-17 06:56 | XMS_ITS | Encounter Summary ---
Author Organization [facility] Address [address] [place] [address] Care Team Providers Care Food Sales Clerk Name Role Phone Gulshan Chanel Primary Care Provider +1- [phone] Encounter Details Date Type Department Care Team (Late st Contact Info) Description 06/27/2024 Results Follow-Up [facility] Liver Transplant Services [address] [place] [address] Angela Weaver RN Social History Tobacco Use [...] Encounter Note - Yunior Pérez MD - 06/27/2024 3:16 PM EDT Great thank you! documented in this encounter Plan of Treatment Upcoming Encounters Date Type Department Care Team (Late st Contact Info) Description 07/18/2024 1:15 PM EDT Office Visit [facility] A [address] [place] [address] Karen Castro PA [address] [place] [address] 07/23/2024 10:30 AM EDT Follow-Up [facility] Transplant Services [address] [place] [address] Nathan Ortiz MD [address] [place] [address] 08/23/2024 4:30 PM EDT Follow-Up [facility] Liver Transplant Services [address] [place] [address] Yunior Pérez MD [address] [place] [address] documented as of this encounter Visit Diagnoses Not on filedocumented in this encounter Care Teams Food Sales Clerk Relationship Specialty Start Date End Date Gulshan Chanel [address] [place] [address] PCP - General 04/17/24 documented as of this encounter
--- OUTSIDE RECORDS SUMMARY | 2024-07-17 06:56 | XMS_ITS | Data Portability ---
Author Organization [facility] Address [address] [place] [address] Care Team Providers Care Sanding Machine Operator Name Role Phone [facility] Primary Care Provider Assessment No assessment recorded. Plan of Treatment Reminders Order Date Submit Date Provider Last Modified By Organization Details Last Modified Time Details Appointments None recorded. Lab urinalysis , dipstick 2022 023 [email or web address] _[facility], [facility] [place], [address], 3 08:58:12 culture, urine 2022 023 [place], [address] [place] [address], [place], [address], 3 08:06:03 Referral None recorded. Procedures None recorded. Surgeries None recorded. Imaging None recorded. Medication Orders Macrobid 100 mg capsule 2022 023 [facility][id number], [address] [facility] [place], [address], 3 08:58:11 Patient TargetsNo targets recorded. Patient Instructions Encounter Date Encounter Id Patient Instructions Last Modified By Organization Details Last Modified Time 09/25/2022 [id number] We are going to treat you for [...] culture, routine FINAL REPORT Not Available [facility] ([facility]) [address] [facility], [place], [address], 09/27/2022 08:06:03 09/26/1909/27/2022 URINE CULTU RETAMMIE NE result 1 NO GROWTH Not Available [facility] ([facility]) [address] [facility], [place], [address], 09/27/2022 08:06:03 09/26/1909/25/2022 urina lysis , dipst ick Unknown Analyte Normal = light yellow Not Available [address] [place], [address], 09/25/2022 08:38:49 09/26/1909/25/2022 urina lysis , dipst ick Unknown Analyte Normal = clear Not Available [address] [place] [address] [place], [address], 09/25/2022 08:38:49 09/26/1909/25/2022 urina lysis , dipst ick Unknown Analyte Normal = negati ve Not Available [address] [place] [address], [place], [address], 09/25/2022 08:38:49 09/26/1909/25/2022 urina lysis , dipst ick Unknown Analyte Normal = Negati ve Not Available [address] [place] [address] [place], [address], 09/25/2022 08:38:49 09/26/1909/25/2022 urina lysis , dipst ick Unknown Analyte Normal = Negati ve Not Available [facility] [address], [place], [address], 09/25/2022 08:38:49 09/26/1909/25/2022 urina lysis , dipst ick Unknown Analyte Normal = 1.010, 1.015, 1.020 Not Available [address] [place] [address], [place], [address], 09/25/2022 08:38:49 09/26/1909/25/2022 urina lysis , dipst ick Unknown Analyte Normal = Negati ve Not Available [address] [place] [address], [place], [address], 09/25/2022 08:38:49 09/26/1909/25/2022 urina lysis , dipst ick Unknown Analyte Normal = 6.5, 7.0, 7.5, 8.0 Not Available [address] [place] [address], [place], [address], 09/25/2022 08:38:49 09/26/1909/25/2022 urina lysis , dipst ick Unknown Analyte Normal = Negati ve Not Available [address] [place] [address], [place], [address], 09/25/2022 08:38:49 09/26/1909/25/2022 urina lysis , dipst ick Unknown Analyte Normal = 0.2, 1.0 Not Available [address] [place] [address], [place], [address], 09/25/2022 08:38:49 09/26/1909/25/2022 urina lysis , dipst ick Unknown Analyte Normal = Negati ve Not Available vamsi alicia [address], [place], [address], 09/25/2022 08:38:49 09/26/1909/25/2022 urina lysis , dipst ick Unknown Analyte Normal = Negati ve Not Available vamsi alicia [address], [place], [address], 09/25/2022 08:38:49 09/26/1909/25/2022 urina lysis , dipst ick Unknown Analyte Cydney Not Available sacha [address], [place], [address], 09/25/2022 08:38:49 09/26/1909/25/2022 urina lysis , dipst ick Unknown Analyte Slight ly Cloudy Not Available vamsi alicia [address], [place], [address], 09/25/2022 08:38:49 09/26/1909/25/2022 urina lysis , dipst ick Unknown Analyte 100 mg/dL Not Available v[facility] alicia [address], [place], [address], 09/25/2022 08:38:49 09/26/1909/25/2022 urina lysis , dipst ick Unknown Analyte Modera te Not Available vamsi alicia [address], [place], [address], 09/25/2022 08:38:49 09/26/1909/25/2022 urina lysis , dipst ick Unknown Analyte 15 mg/dL Not Available v[facility] al[facility] [address], [place], [address], 09/25/2022 08:38:49 09/26/1909/25/2022 urina lysis , dipst ick Unknown Analyte 1.015 Not Available sacha [address], [place], [address], 09/25/2022 08:38:49 09/26/19 23 09/25/2022 urina lysis , dipst ick Unknown Analyte Negati ve Not Available vamsi alicia [address], [place], [address], 09/25/2022 08:38:49 09/26/1909/25/2022 urina lysis , dipst ick Unknown Analyte 6.0 Not Available sacha [address], [place], [address], 09/25/2022 08:38:49 09/26/1909/25/2022 urina lysis , dipst ick Unknown Analyte 30 mg/dL Not Available v[facility]i alicia [address], [place], [address], 09/25/2022 08:38:49 09/26/1909/25/2022 urina lysis , dipst ick Unknown Analyte >=8.0 E.U./d L Not Available vamsi alicia [address], [place], [address], 09/25/2022 08:38:49 09/26/1909/25/2022 urina lysis , dipst ick Unknown Analyte Negati ve Not Available vamsi alicia [address], [place], [address], 09/25/2022 08:38:49 09/26/19 23 09/25/2022 urina lysis , dipst ick Unknown Analyte Negati ve Not Available vamsi alicia [address], [place], [address], 09/25/2022 08:38:49 Result Notes None recorded. Problems Name Problem SNOMED Code Status Onset Date Resolution Date Notes Provider Name and Address Organization Details Recorded Time Degeneration of intervertebral disc 88959994 Active 2022 H[facility]OK [facility] 3 08:36:07 Gastroesophage al reflux disease 994085661 Active 2022 HENOK Patterson [facility] 3 [...] Updated DateTime 3 177.8 cm 25.8 kg/m2 03918.6 3 g 95 % 95 % 79 [...] SNOMED-CT Code Diagnosis ICD10 Code Diagnosis Note [id number] [place] [address] [address] [place] [address] 09/25/2022 08:12:41 09/25/2022 09:02:39 Acute urinary tract infection 581930416 N39.0 Health Concerns Section Related Observation LastModified by Organization Detai ls LastModified Time None Recorded Concern Status LastModified by Organization Details LastModified Time None Recorded Advance Directives Directive None Recorded Payers Encounter Date Sequence Insurance Name Policy Number Policy Vences Covered Member ID Vences Member ID Guarantor Name 09/25/2022 1 [facility] - HEALTH NET PLAN (MEDICAID HMO) EASTON Miller [id number] Tho Miller Notes Date Note Type Note [...] Dayne Christensen NP [address] [place], [address], [place] - [facility] 09/25/2022 08:58:38
--- OUTSIDE RECORDS SUMMARY | 2024-07-17 06:56 | XMS_ITS ---
Author Organization [facility] Address [address] [place] [address] Care Team Providers Care Remelt Furnace Expediter Name Role Phone Gulshan Chanel Primary Care Provider +1- [phone] Transplant Episode Liver Candidate [facility] ([place], [place]) - [facility] Evaluation began on 04/17/2024 Marked as Active on 04/17/2024 Reason: Workup Liver CoordinatorAngela Weaver RN Phone: N/A Fax: N/A Email: N/A Scores Score Value Updated Expires Exceptions/[place] sons CPRA Not available UNOS MELD Not available MELD (Calc) 16 06/06/2024 [place] Organ Diagnosis 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
--- OUTSIDE RECORDS SUMMARY | 2024-07-17 06:56 | XMS_ITS | Encounter Summary ---
Author Organization [facility] Address [address] [place] [address] Care Team Providers Care Sports Health Club Membership Advisors Name Role Phone Gulshan Chanel Primary Care Provider Encounter Details Date Type Department Care Team (Late st Contact Info) Description 05/15/2024 Results Follow-Up [facility] Liver Transplant Services [address] [place] [address] Angela Weaver RN Social History Tobacco Use [...] Description 07/18/2024 1:15 PM EDT Office Visit [facility] A [address] [place] [address] Karen Castro PA [address] [place] [address] 07/23/2024 10:30 AM EDT Follow-Up [facility] Liver Transplant Services [address] [place] [address] Nathan Ortiz MD [address] [place] [address] 08/23/2024 4:30 PM EDT Follow-Up [facility] Transplant Services [address] [place] [address] Yunior Pérez MD [address] [place] [address] documented as of this encounter Visit Diagnoses Not on filedocumented in this encounter Care Teams Sports Health Club Membership Advisors Relationship Specialty Start Date End Date Gulshan Chanel [address] [place] [address] PCP - General 04/17/24 documented as of this encounter
--- OUTSIDE RECORDS SUMMARY | 2024-07-17 06:56 | XMS_ITS | Encounter Summary ---
Author Organization [facility] Address [address] [place] [address] Care Team Providers Care Experimental Assembler Name Role Phone Gulshan Chanel Primary Care Provider +1- [phone] Encounter Details Date Type Department Care Team (Late st Contact Info) Description 05/16/2024 Results Follow-Up [facility] Liver Transplant Services [address] [place] [address] Angela Weaver RN Social History Tobacco Use [...] Description 07/18/2024 1:15 PM EDT Office Visit [facility] A [address] [place] [address] Karen Castro PA [address] [place] [address] 07/23/2024 10:30 AM EDT Follow-Up [facility] Liver Transplant Services [address] [place] [address] Nathan Ortzi MD [address] [place] [address] 08/23/2024 4:30 PM EDT Follow-Up [facility] Liver Transplant Services [address] [place] [address] Yunior Pérez MD [address] [place] [address] documented as of this encounter Visit Diagnoses Not on filedocumented in this encounter Care Teams Experimental Assembler Relationship Specialty Start Date End Date Gulshan Chanel [address] [place] [address] PCP - General 04/17/24 documented as of this encounter
--- OUTSIDE RECORDS SUMMARY | 2024-07-17 06:56 | XMS_ITS | Clinical Summary ---
Author Organization [facility] Address [address] [place] [address] Care Team Providers Care Bottle Booth Attendant Name Role Phone Gulshan Chanel Primary Care [...] extended release Take by mouth. 4 Active yjpmdgw-UWTD-gea-va ler-hops-lm [id number] mg capsule 5 mg. 4 Active magnesium [...] by mouth 2 (two) times a day. 17013 mL 3 5 Active vitamin A 3,000 [...] mg tablet SMARTSI Tablet(s) By Mouth PRN 5 Active rOPINIRole (REQUIP) 1 mg tablet Take 1/2 or 1 tablet by mouth nightly one hour prior to planned bedtime 30 tablet 3 5 Active Active Problems Problem Noted Date Diagnosed Date Cirrhosis of liver 05/11/2024 Portal hypertension 05/11/2024 Secondary esophageal varices without bleeding Moderate protein-calorie malnutrition 05/11/2024 Alcohol use disorder, severe, in sustained remis chiqui 05/11/2024 Encounter for pre-transplant evaluation for chronic liver disease 05/11/2024 Encounters Date Type Department Care Team Description 06/27/2024 Results Follow-Up [facility]plant [facility] [address] [place] [address] 32274 Angela Weaver, LUDY 06/27/2024 Orders Only [facility] Transplant Department [address] [place] [address] 21585 Provider, Timothy, 06/19/2024 Telephone [facility] Transplant Department [address] [place] [address] 87794 Angela Weaver, LUDY 06/19/2024 Orders Only [facility] Transplant Department [address] [place] [address] 36241 Angela Weaver, RN Pathological fracture of vertebra, unspecified pathological cause, initial encounter (Primary Dx) 06/13/2024 Orders Only [facility] Transplant Department [address] [place] [address] 98316 Provider, Unknown, 06/12/2024 Results Follow-Up [facility] [address] [place] [address] 66480 Angela Weaver RN 06/11/2024 10:30 AM EDT Follow-Up [facility] [address] [place] [address] 39345 Nathan Ortiz MD Alcohol use disorder, severe, in sustained remission (Primary Dx); Alcoholic cirrhosis of liver with ascites 06/11/2024 9:30 AM EDT Clinical Support [facility] [address] [place] [address] 20753 Bella Aguilar RN Encounter for pre-transplant evaluation for liver transplant (Primary Dx) 06/11/2024 Abstract [facility] Transplant Department [address] [place] [address] 93188 Yunior Pérez MD 06/11/2024 External Result Entry [facility] Transplant Department [address] [place] [address] 70209 Angela Weaver RN 06/11/2024 Orders Only [facility] Transplant Department [address] [place] [address] 18483 Provider, Timothy, 06/06/2024 Orders Only [facility] Transplant Department [address] [place] [address] 47903 Angela Weaver RN Alcoholic cirrhosis of liver with ascites (Primary Dx); Awaiting organ transplant 05/24/2024 Telephone [facility] Transplant Department [address] [place] [address] 88579 Angela Weaver RN 05/18/2024 Orders Only [facility] Transplant Department [address] [place] [address] 76752 Angela Weaver, LUDY Encounter for pre-transplant evaluation for liver transplant (Primary Dx) 05/16/2024 Orders Only [facility] Transplant Department [address] [place] [address] 13149 Angela Weaver, RN Alcoholic cirrhosis of liver with ascites (Primary Dx) 05/16/2024 Telephone [facility] [address] [place] [address] 97271 Animal Damage Control Agent: Yunior Bravo MD 05/16/2024 Results Follow-Up [facility] [address] [place] [address] 94981 Angela Weaver RN 05/16/2024 Telephone [facility] Transplant Department [address] [place] [address] 22373 Angela Weavre RN 05/15/2024 Results Follow-Up [facility] [address] [place] [address] 40849 Angela Weaver RN 05/11/2024 3:15 PM EST Office Visit [facility] [address] [place] [address] 63499 Kash Ramirez MD PhD Alcoholic cirrhosis of liver with ascites (Primary Dx); Portal hypertension; Moderate protein-calorie malnutrition; Secondary esophageal varices without bleeding 05/11/2024 2:30 PM EST Office Visit [facility] [address] [place] [address] 26895 Preeti Mcdaniel MD Co, Elizabeth Hartmann MD Special screening examination for infectious diseases (Primary Dx); Encounter for pre-transplant evaluation for liver transplant; Cytomegalovirus infection, unspecified cytomegaloviral infection type 05/11/2024 1:45 PM EST Nutrition [facility] [address] [place] [address] Encounter for pre-transplant evaluation for liver transplant (Primary Dx) 05/11/2024 1:00 PM EST Office Visit [facility] [address] [place] [address] Nathan Ortiz MD Encounter for pre-transplant evaluation for chronic liver disease (Primary Dx) 05/11/2024 12:15 PM EST Social Work [facility] [address] [place] [address] 38609 Radha Higginbotham, [facility] 05/11/2024 11:45 AM EST Office Visit [facility] [address] [place] [address] 23827 Evelyn Barr RN Awaiting organ transplant (Primary Dx) 05/11/2024 10:28 AM EST - 05/11/2024 11:59 PM EST Hospital Encounter [facility] CT Scan [address] [place] [address] Yunior Pérez MD Discharge Disposition: Home or Self Care () 05/11/2024 8:35 AM EST - 05/11/2024 10:27 AM EST Hospital Encounter [facility] ACC Building Cardiac Ultrasound [address] [place] [address] Yunior Pérez MD Discharge Disposition: Home or Self Care () 05/11/2024 Refill [facility] Transplant Department [address] [place] [address] OlivierMariangeln Hepatic cirrhosis, unspecified hepatic cirrhosis type, unspecified whether ascites present (Primary Dx); Moderate protein-calorie malnutrition 05/09/2024 Telephone [facility] Transplant Department [address] [place] [address] 58107 Angela Weaver, LUDY 05/08/2024 Telephone [facility] Transplant Department [address] [place] [address] Angela Weaver RN 05/01/2024 Telephone [facility] Transplant Department [address] [place] [address] Angela Weaver, LUDY 04/18/2024 Orders Only [facility] Transplant Department [address] [place] [address] Angela Weaver, LUDY Encounter for pre-transplant evaluation for liver transplant (Primary Dx) from Last 3 Months Immunizations Immunization Administration [...] Description 07/18/2024 1:15 PM EDT Office Visit [facility] [address] [place] [address] Karen Castro PA [address] [place] [address] 07/23/2024 10:30 AM EDT Follow-Up [facility] [address] [place] [address] Nathan Ortiz MD [address] [place] [address] 08/23/2024 4:30 PM EDT Follow-Up [facility] [address] [place] [address] Yunior Pérez MD [address] [place] [address] 38314 Health Maintenance Due Date Last Done Comments Cologuard 1969 Colon Cancer Screening 1969 Colonoscopy 1969 FOBT / Fit Test 1969 Sigmoidoscopy 1969 COVID-19 Vaccine ( season) 2023 Alcohol/Substance Use Screening 03/21/2024 Depression Screening and Follow-Up 03/21/2024 Social Drivers of Health Annual Screening 03/21/2024 Hepatitis B Vaccines (2 of 3 - Hep B Twinrix 3-dose series) 06/29/2024 06/01/2024 Zoster Vaccines (2 of 2) 07/24/2024 05/29/2024 Influenza Vaccine (Season Ended) 2024 02/13/[address] Lung Cancer Screening (Baseline) 05/11/202505/11 DTaP,Tdap,and Td Vaccines (2 - Td or Tdap) 05/29/2034 05/29/2024 RSV Vaccine (60+ years old a nd patients) (1 - 1-dose 75+ series) 2044 HIV Screening Completed 05/11/2024 Hepatitis C Screening Completed 05/11/2024 Pneumococcal Vaccine: 50+ Years Completed Procedures * Due to [place] state law, this organization might not be [...] Encounter for pre-transplant evaluation for liver transplant [id number] (AAT) PHENOTYPE Routine 05/11/2024 8:02 AM EST [...] CYSTATIN C WITH GLOMERULAR FILTRATION RATE, ESTIMATED (EGFR)-[id number] Routine 05/11/2024 8:02 AM EST Encounter for [...] for pre-transplant evaluation for liver transplant PHOSPHATIDYLETHANOL-ARU [id number] Routine 05/11/2024 8:02 AM EST Encounter for [...] for liver transplant QUANTIFERON-TB GOLD PLUS, 1 [id number] Routine 05/11/2024 8:02 AM EST Encounter for pre-transplant evaluation for liver transplant RPR (DIAGNOSIS) W/REFLEX TO TITER & TPPA [id number] Routine 05/11/2024 8:02 AM EST Encounter for [...] for pre-transplant evaluation for liver transplant ZINC, PLASMA/[id number] Routine 05/11/2024 8:02 AM EST Encounter for pre-transplant evaluation for liver transplant PSA Routine 05/11/2024 8:02 AM EST Encounter for pre-transplant evaluation for liver transplant from Last 3 Months Results * Due to [place] state law, this organization might not be sharing negative HIV tests. * HEART & VASCULAR - SCANNED (06/11/2024 10:14 AM EDT) Only the most recent of4 resultswithin the time period is included. Anatomical Region Laterality Modality Other Unknown Provider SCANNED PROCEDURES Edited Re sult - Final * ECG 12 lead (06/11/2024 10:03 AM EDT) Ventricular Rate EKG 66 BPM MUSE EKG Atrial Rate 66 BPM MUSE EKG KS Interval 140 ms MUSE EKG QRS Interval 74 ms MUSE EKG QT Interval 420 ms MUSE EKG QTC Interval 440 ms MUSE EKG P [place] 57 degrees MUSE EKG R [place] 9 degrees MUSE EKG T Wave [place] 59 degrees MUSE EKG 06/11/2024 10:0 3 AM EDT 06/16/2024 5:30 PM EDT Impressions MUSE EKG - 06/16/2024 5:30 PM EDT NORMAL SINUS RHYTHM NONSPECIFIC ST ABNORMALITY LOW VOLTAGE QRS NO PREVIOUS ECGS AVAILABLE Confirmed by Zohra Aleman ([id number]) on 06/16/2024 5:30:47 PM us Hand Winder Estee LOPEZ ECG ORDERABLES Final Resu lt [...] LAB BLOOD ORDERABLES Fin al Result [facility] * TYPE AND SCREEN - TRANSPLANT MANUAL ABSTRACTION (06/06/2024 3:54 PM EDT) ABO B [facility] RH Negative [facility] Blood, Venous 06/06/2024 3:5 4 PM EDT Unknown Provider LAB HISTORICAL RESULTS Final Result Performing Organization Address [facility] Co de Phone Number [facility] * CT [...] obtain the completed interpretation. ? Workstation ID: [id number] Up-to-date CT equipment and radiation dose reduction techniques were employed. CTDIvol: 3.0 - 14.6 mGy. DLP: 1699 mGy-cm. ??The following accession numbers are related to this dose report [id number]: [id number] Narrative 05/14/2024 7:59 PM EST EXAMINATION: CT [...] image 107 series 10. Resulting Agency Comment [id number] Procedure Note Christen Aviles MD - 05/14/2024 [...] 3. Cholelithiasis and choledocholithiasis. Punctate calculus seen aitti385 series 4 within the distal CBD. Can [...] possible to obtain thecompleted interpretation. Workstation ID: [id number] Up-to-date CT equipment and radiation dose reduction techniques wereemployed. CTDIvol: 3.0 - 14.6 mGy. DLP: 1699 mGy-cm. The followingaccession numbers are related to this dose report [id number]: [id number] Yunior Pérez MD IM CT PROCEDURES Final [...] obtain the completed interpretation. ? Workstation ID: [id number] Up-to-date CT equipment and radiation dose reduction techniques were employed. CTDIvol: 3.0 - 14.6 mGy. DLP: 1699 mGy-cm. ??The following accession numbers are related to this dose report [id number]: [id number] Narrative 05/17/2024 4:11 PM EST Indication: ??pre [...] vertebral disease. Bilateral gynecomastia. Resulting Agency Comment [id number] Procedure Note Sidney Delatorre MD PhD - [...] possible to obtain thecompleted interpretation. Workstation ID: [id number] Up-to-date CT equipment and radiation dose reduction techniques wereemployed. CTDIvol: 3.0 - 14.6 mGy. DLP: 1699 mGy-cm. The followingaccession numbers are related to this dose report [id number]: [id number] Yunior Pérez MD IM CT PROCEDURES Final [...] BSA 1.85 RIGHT ATRIAL PRESSURE 3 mmHg [facility] RV TISSUE DOPPLER S' 12.0 cm/s LV [...] Myocardial deformation imaging was performed using [employer] [place]. During the study the apical, parasternal, subcostal and suprasternal view was captured. Overall the study quality was adequate. Prior Study No prior study available for comparison. STRESS ECHO OVERALL FINDINGS Normal RV size and systolic function. No significant valvular disease identified. us Yunior Pérez MD CV ECHO PROCEDURES Final Result * Comprehensive Drug Panel, Urine (05/11/2024 8:11 AM EST) [facility] Comprehensive Drug Screen Urine DRUGS DETECTED 05/11/2024 2:55 PM EST [employer] Comment: NICOTINE GABAPENTIN COTININE CAFFEINE TRAMADOL AND METABOLITE Urine Voided urine specimen / Unknown Non-Blood Collection / Unknown 05/11/2024 8:11 AM EST 05/11/2024 8:16 AM EST [facility]ative [facility] 05/11/[facility] 2:55 PM EST [facility] Received Date: us Yunior Pérez MD LAB URINE ORDERABLES Fin al Result [facility] [address], [place] [address], [employer] [facility] [address], [place] [address], * (ABNORMAL) Cystatin C with Glomerular Filtration Rate, Estimated (eGFR) (05/11/2024 8:02 AM EST) [facility] Cystatin C 1.39(H) 0.52 - 1.23 [...] ben Result - Final [facility] ([facility]) [address] [place], [place] , [place] * (ABNORMAL) SHELLY, Titer and Pattern (05/11/2024 8:02 AM EST) SHELLY Titer 1 1:320(H) titer 05/16/2024 12:01 PM [employer] Comment: ?Reference Range ?<1:40 ?Negative ?1:40-1:80 ?Low Antibody Level ?>1:80 ?Elevated Antibody Level SHELLY Pattern 1 Nuclear, Homogeneo us(A) 05/16/2024 12:01 PM [employer] Comment: Homogeneous pattern is associated with systemic lupus erythematosus (SLE), drug-induced lupus and juvenile idiopathic arthritis. AC-1: Homogeneous International Consensus on SHELLY Patterns (https://doi.org/10.1515/qapq-5269-3220) SHELLY Titer 2 1:320(H) titer 05/16/2024 12:01 PM [employer] Comment: ?Reference Range ?<1:40 ?Negative ?1:40-1:80 ?Low Antibody Level ?>1:80 ?Elevated Antibody Level SHELLY Pattern 2 Nuclear, Speckled( A) 05/16/2024 12:01 PM EST [employer] Comment: Speckled pattern is associated with mixed connective tissue disease (MCTD), systemic lupus erythematosus (SLE), Sjogren's syndrome, dermatomyositis, and systemic sclerosis/polymyositis overlap. AC-2,4,5,29: Speckled International Consensus on SHELLY Patterns (https://doi.org/10.1515/nqlx-1558-4504) Blood Structure of peripheral vein / Unknown Venipuncture / Unknown 05/11/2024 8:02 AM EST 05/11/2024 8:15 AM EST [facility] - 05/16/2024 12:01 PM EST [facility] Received Date: Yunior Pérez MD LAB BLOOD ORDERABLES Fin al Result [facility] [address], [place] [address], [place] [phone] [employer] [facility] [address], [place] [address], [place] [phone] * Phosphatidylethanol (PEth) (05/11/2024 8:02 AM EST) [...] (PLPEth) 32 ng/mL 05/12/2024 5:33 PM EST [facility] Comment:Reference ranges are not well established. EER Peth See Note 05/12/2024 5:33 PM EST [facility] Comment: Authorized individuals can access the Vine Enhanced Report with an [employer] Connect account using the following link. Your local lab can assist you in obtaining the patient report if you don't have a Connect account. [email or web address] PEth Interpretation See Comment 04/22 5:33 PM EST [facility] Comment: Phosphatidylethanol (PEth) is a group [...] developed and its performance characteristics determined by [employer]. It has not been cleared or approved by the U.S. Food and Drug Administration. This test was performed in a CLIA-certified laboratory and is intended for clinical purposes. Performed By: [employer] [address] [place] [id number] Guidance Director: Yusuf Lomas MD, PhD CLIA Number: [id number] Blood Structure of peripheral vein / Unknown Venipuncture / Unknown 05/11/2024 8:02 AM EST 05/11/2024 8:15 AM EST Yunior Pérez MD LAB BLOOD ORDERABLES Fin al Result [facility] [address] [place] [address], * Qlreo-1-Xqwwqirxkzz (AAT) Phenotype (05/11/2024 8:02 AM EST) Alpha 1 Antitrypsin Phenotype SEE NOTE 05/15/2024 1:10 PM EST [facility] [facility] Comment: THIS PATIENT'S MPXDN-4-GYDHUAHGHCY PHENOTYPE IS PI*MM. 90% of normal individuals have the MM phenotype, with normal quantitative AAT levels. Many phenotypic patterns have been described, including deficiency states with F, S, Z, or other alleles. As a general estimation, compared to M allele of 100% of normal H-7-Oymufripctf protein, the S allele produces approximately 60% and the Z allele 20%. For example, an MS phenotype would have about 80% of normal O-2-Xjnyaopxbcp protein level, a 50% contribution from the M allele and 30% from the S allele. A ZZ phenotype would have about 20% of normal levels, a 10% contribution from each Z gene. The F allele has normal N-6-Umxfbmjldrs levels, but the kinetics of elastase inhibition [...] 8:13 AM EST Narrative [facility] [place] - 05/15/2024 1:10 PM EST [facility] Received Date: Yunior Pérez MD LAB BLOOD ORDERABLES Fin al Result [facility] [address], [place] [address], [place] [phone] [employer] [address] [place] [address], [place] [phone] * (ABNORMAL) MMR Panel, IgG (05/11/2024 8:02 AM EST) [facility] Measles Antibody (IgG), Immune Status <13.50(L) AU/mL 05/11/2024 5:16 PM EST [employer] Comment: AU/mL ?Interpretation ----- ? <13.50 ? Not consistent with immunity 13.50-16.49 ?Equivocal >16.49 ? Consistent with immunity The presence of measles IgG suggests immunization or past or current infection with measles virus. For additional information, please refer to http://Gotcha Ninjas.Trak/faq/KZG304 (This link is being provided for informational/ educational purposes only.) Mumps Antibody (IgG), Immune Status <9.00(L) AU/mL 05/11/2024 5:16 PM EST [employer] Comment: AU/mL ? Interpretation ------- ? <9.00 ? Not consistent with immunity 9.00-10.99 ?Equivocal >10.99 ?Consistent with immunity The presence of mumps IgG antibody suggests immunization or past or current infection with mumps virus. Rubella Antibody (IgG), Immune Status <0.90(L) Index 05/11/2024 5:16 PM EST [employer] Comment: ?Index ?Interpretation ?----- ?<0.90 ?Not consistent with immunity ?0.90-0.99 ?Equivocal ?> or = 1.00 ?Consistent with immunity The presence of rubella IgG antibody suggests immunization or past or current infection with rubella virus. Blood Structure of peripheral vein / Unknown Venipuncture / Unknown 05/11/2024 8:02 AM EST 05/11/2024 8:15 AM EST [facility] - 05/11/2024 5:16 PM EST [facility] Received Date: Yunior Pérez MD LAB BLOOD ORDERABLES Fin al Result Performing Organization Address City/State/[facility] Co de Phone Number [facility] [address], [place] [address], [employer] [facility] [address], [place] [address], * (ABNORMAL) Herpes Simplex Virus 1&2, IgG (05/11/2024 8:02 AM EST) HSV 1 IgG Type Specific Ab <0.90 index 05/11/2024 9:20 PM EST [employer] HSV 2 IgG Type Specific Ab 1.66(H) index 05/11/2024 9:20 PM EST [employer] Comment: ?Index ?Interpretation ?----- ?<0.90 ?Negative ?0.90-1.09 ?Equivocal ?>1.09 ?Positive Low HSV-2 IgG positive results (index values between 1.10-3.00) may represent false positive results. CDC 2020 guidelines recommend confirmatory testing of samples with low-positive HSV-2 IgG results. If clinically indicated, consider adding on HSV-2 IgG Inhibition, by contacting [facility]. For additional information, please refer to: https://[email or web address].[email or web address]/healthcare- professionals/nymovvam-piounkagv-ocxwsf/faq/faq73 (This link is being provided for informational/ [...] screening. For additional information, please refer to http://education.[employer].PresseTrends.com/faq/OWC232 (This link is being provided for informational/ educational purposes only.) ?? Blood Structure of peripheral vein / Unknown Venipuncture / Unknown 05/11/2024 8:02 AM EST 05/11/2024 8:13 AM EST Narrative [facility] - 05/11/2024 9:20 PM EST [facility] Received Date: us Yunior Pérez MD LAB BLOOD ORDERABLES Fin al Result [facility] [address], [place] [address], [place] [phone] [employer] [facility] [address], [place] [address], [place] [phone] * Protein Electrophoresis w/Reflex to Immunofixation, Serum (05/11/2024 8:02 AM EST) Pathologist [facility] Protein, Total 6.9 6.1 - 8.1 g/dL 05/11/2024 10:39 PM EST [employer] [facility] Albumin 3.8 3.8 - 4.8 g/dL 05/11/2024 10:39 PM EST [employer] [facility] Alpha 1 Globulin 0.3 0.2 - 0.3 g/dL 05/11/2024 10:39 PM EST [employer] [facility] Alpha 2 Globulin 0.6 0.5 - 0.9 g/dL 05/11/2024 10:39 PM EST [employer] [facility] Beta 1 Globulin 0.5 0.4 - 0.6 g/dL 05/11/2024 10:39 PM EST [employer] [facility] Beta 2 Globulin 0.3 0.2 - 0.5 g/dL 05/11/2024 10:39 PM EST [employer] [facility] Gamma Globulin 1.4 0.8 - 1.7 g/dL 05/11/2024 10:39 PM EST [employer] [facility] Interpretation See Comments 05/11/2024 10:39 PM EST [employer] [facility] Comment: Normal Serum Protein Electrophoresis Pattern. No abnormal protein bands (M-protein) detected. Blood Structure of peripheral vein / Unknown Venipuncture / Unknown 05/11/2024 8:02 AM EST 05/11/2024 8:14 AM EST [employer] [facility] 05/11/2024 10:39 PM EST [facility] Received Date: us Yunior Pérez MD LAB BLOOD ORDERABLES Fin al Result [facility] [address], [place] [address], [place] [phone] [employer] [facility] [address], [place] [address], * RPR (Diagnosis) w/Reflex to Titer & TPPA Confirm (05/11/2024 8:02 AM EST) RPR W/Refl Titer NON-REACT COLLINS NON-REACT COLLINS 05/11/2024 1:09 PM EST [employer] [facility] Blood Structure of peripheral vein / Unknown Venipuncture / Unknown 05/11/2024 8:02 AM EST 05/11/2024 8:15 AM EST [facility] - 05/11/2024 1:09 PM EST [facility] Received Date: Yunior Pérez MD LAB BLOOD ORDERABLES Fin al Result [facility] [address] [facility], [place] [address], [place] [phone] [employer] [facility] [address], [place] [address], * (ABNORMAL) Iron Saturation (05/11/2024 8:02 AM EST) Iron Saturation 6(L) 20 - 50 % 8:57 AM EST [facility] Iron 25(L) 45 - 160 ug/dL 05/11/2024 8:57 AM EST [facility] Transferrin 316 200 - 360 mg/dL 05/11/2024 8:57 AM EST [facility] Total Iron Binding Capacity 395 255 - 450 ug/dL 05/11/2024 8:57 AM EST [employer] CLINICAL PATHOLOGY LABORATORY Blood Structure of peripheral vein / Unknown Venipuncture / Unknown 05/11/2024 8:02 AM EST 05/11/2024 8:15 AM EST Yunior Pérez MD LAB BLOOD ORDERABLES Fin al Result Performing Organization Address City/[facility] Co de Phone Number [facility] [address] [place] [address], * TSH Reflex Free T4 (05/11/2024 8:02 AM EST) Pathologist [facility] TSH 2.130 0.280 - 3.890 uIU/mL 05/11/2024 8:57 AM EST [employer] [facility] Blood Structure of peripheral vein / Unknown Venipuncture / Unknown 05/11/2024 8:02 AM EST 05/11/2024 8:15 AM EST Yunior Pérez MD LAB BLOOD ORDERABLES Fin al Result Performing Organization Address [facility] de Phone Number [facility] [address] [place] [address], * QuantiFERON-TB Gold Plus, 1 Tube (05/11/2024 8:02 AM EST) [facility] QuantiFERON-TB Gold Plus NEGATIVE NEGATIVE 05/14/2024 2:04 PM EST [employer] [facility] Comment: Negative test result. M. tuberculosis complex infection unlikely. NIL 0.01 IU/mL 05/14/2024 2:04 PM EST [employer] [facility] Mitogen-NIL 9.32 IU/mL 05/14/2024 2:04 PM EST [employer] [facility] TB1-NIL 0.00 IU/mL 05/14/2024 2:04 PM EST [employer] [facility] TB2-NIL 0.01 IU/mL 05/14/2024 2:04 PM [facility] Comment: The Nil tube value [...] T-lymphocytes. For additional information, please refer to https://education.Palmap/faq/EDY281 (This link is being provided for informational/ educational purposes only.) Blood Structure of peripheral vein / Unknown Venipuncture / Unknown 05/11/2024 8:02 AM EST 05/11/2024 8:10 AM EST [facility] - 05/14/2024 2:04 PM EST [facility] Received Date: Yunior Pérez MD LAB BLOOD ORDERABLES Fin al Result [facility] [address] [facility] [address], [place] [address], [employer] [facility] [address] [facility] [address]rd Floor, [place] [address], * (ABNORMAL) CBC Auto Differential (05/11/2024 8:02 AM EST) WBC 8.6 3.8 - 10.8 10*3/uL 05/11/2024 8:22 AM EST [employer] [facility] RBC 3.56(L) 4.20 - 5.80 10*6/uL 05/11/2024 8:22 AM EST [employer] [facility] Hemoglobin 11.1(L) 13.2 - 17.1 g/dL 05/11/2024 8:22 AM EST [employer] [facility] Hematocrit 32.7(L) 38.5 - 50.0 % 05/11/2024 8:22 AM EST [employer] [facility] MCV 91.9 80.0 - [...] - 0.95 10*3/uL 05/11/2024 8:22 AM EST [employer] [facility] Eosinophil # 0.20 0.02 - 0.50 10*3/uL 05/11/2024 8:22 AM EST [employer] [facility] Basophil # 0.10 0.00 - 0.20 10*3/uL 05/11/2024 8:22 AM EST [employer] [facility] nRBC % 0.0 /100 WBCs 05/11/2024 8:22 AM EST [employer] [facility] nRBC # <0.01 <0.01 10*3/uL 05/11/2024 8:22 AM EST [employer] [facility] Blood Structure of peripheral vein / Unknown Venipuncture / Unknown 05/11/2024 8:02 AM EST 05/11/2024 8:15 AM EST us Yunior Pérez MD LAB BLOOD ORDERABLES Fin al Result Performing Organization Address City/State/[facility] Co de Phone Number [facility] [address] [place] [address], * Smooth Muscle Antibody Screen w/Reflex to Titer (05/11/2024 8:02 AM EST) Smooth Muscle AB Screen NEGATIVE NEGATIVE 05/14/2024 3:03 PM EST [employer] [facility] Comment: The specimen was negative for cytoplasmic antibodies, however additional staining was observed suggesting the presence of Antinuclear Antibodies. Consider requesting order code 249, SHELLY Screen, IFA with Reflex to Titer and Pattern, or order code [id number], SHELLY Screen, IFA w/reflex Titer/Pattern, and Reflex to Multiplex 11 Ab [place], if clinically indicated. Blood Structure of peripheral vein / Unknown Venipuncture / Unknown 05/11/2024 8:02 AM EST 05/11/2024 8:15 AM EST Narrative [facility] 05/14/2024 3:03 PM EST [facility] Received Date:[id number] us Yunior Pérez MD LAB BLOOD ORDERABLES Fin al Result [facility] [address], [place] [address], [employer] [facility] [address], [place] [address], * Hepatitis C Antibody w/Reflex to PCR (05/11/2024 8:02 AM EST) Hepatitis C Antibody NON-REACT COLLINS NON-REACT COLLINS 05/11/2024 11:44 AM EST [employer] Comment: HCV antibody was non-reactive. There is no laboratory evidence of HCV infection. In most cases, no further action is required. However, if recent HCV exposure is suspected, a test for HCV RNA (test code 44172) is suggested. For additional information please refer to http://Informed Trades/faq/TTD26k2 (This link is being provided for informational/ educational purposes only.) Blood Structure of peripheral vein / Unknown Venipuncture / Unknown 05/11/2024 8:02 AM EST 05/11/2024 8:15 AM EST Narrative [facility] - 05/11/2024 11:44 AM EST [facility] Received Date: Yunior Pérez MD LAB BLOOD ORDERABLES Fin al Result [facility] [address], [address] [facility] [place] [address], [employer] [facility] [address], [place] [address], * Hepatitis A Antibody, Total (05/11/2024 8:02 AM EST) Hepatitis A Ab, Total NON-REACT COLLINS NON-REACT COLLINS 05/11/2024 11:44 AM EST [employer] Comment: For additional information, please refer to http://Gotcha Ninjas.Palmap/faq/KPD899 (This link is being provided for informational/ educational purposes only.) Blood Structure of peripheral vein / Unknown Venipuncture / Unknown 05/11/2024 8:02 AM EST 05/11/2024 8:15 AM EST Narrative [facility] - 05/11/2024 11:44 AM EST [facility] Received Date: Yunior Pérez MD LAB BLOOD ORDERABLES Fin al Result [facility] [place] [address] [facility] [address] Floor, [place] [address], [employer] [facility] [address] [facility] [address] Floor, [place] [address], * Histoplasma Antibody Panel, CF & ID (05/11/2024 8:02 AM EST) Histoplasma capsulatum yeast phase Ab <1:8 <1:8 NA 05/17/2024 12:21 PM EST [facility] ([place]) Histoplasma capsulatum mycelial phase Ab <1:8 <1:8 NA 05/17/2024 12:21 PM EST [employer] ([place]) Comment: Interpretive Criteria: ?<1:8 - Antibody [...] analytical performance characteristics have been determined by [employer], [place], [place]. It has not been cleared or approved by the FDA. This assay has been validated pursuant to the CLIA regulations and is used for clinical purposes. Histoplasma capsulatum M Antibody Negative Negative 05/17/2024 12:21 PM EST [facility] (SANCHEZ) Histoplasma capsulatum H Antibody Negative Negative 05/17/2024 12:21 PM EST [facility]) Comment: This immunodiffusion assay is highly specific [...] - 05/17/2024 12:21 PM EST [facility] Received Date:[id number] Elizabeth Gonzalez MD LAB BLOOD ORDERABLES Final Res ult [facility]) [address] [place] [address], [place] * (ABNORMAL) SHELLY Screen, Reflex to Titer, IFA (05/11/2024 8:02 AM EST) Pathologist [facility] SHELLY Screen, IFA POSITIVE (A) NEGATIVE 05/16/2024 12:00 PM EST [employer] [facility] Comment: SHELLY IFA is a first line screen for detecting the presence of up to approximately 150 autoantibodies in various autoimmune diseases. A positive SHELLY IFA result is suggestive of autoimmune disease and reflexes to titer and pattern. Further laboratory testing may be considered if clinically indicated. For additional information, please refer to http://education.Trader Sam.PresseTrends.com/faq/FAD214 (This link is being provided for informational/ educational purposes only.) ?? Blood Structure of peripheral vein / Unknown Venipuncture / Unknown 05/11/2024 8:02 AM EST 05/11/2024 8:15 AM EST [facility] - 05/16/2024 12:00 PM EST [facility] Received Date:[id number] us Yunior Pérez MD LAB BLOOD ORDERABLES Fin al Result Performing Organization Address City/[facility]/ZIP Co de Phone Number [facility] [address], [place] [address], [place] [phone] [facility] [employer] [facility] [address], [place] [address], * Ceruloplasmin (05/11/2024 8:02 AM EST) Ceruloplasmin 19 14 - 30 mg/dL 05/13/2024 1:07 AM EST [employer] [facility] Blood Structure of peripheral vein / Unknown Venipuncture / Unknown 05/11/2024 8:02 AM EST 05/11/2024 8:15 AM EST Narrative [facility] [place] - 05/13/2024 1:07 AM EST [facility] Received Date:[id number] us Yunior Pérez MD LAB BLOOD ORDERABLES Fin al Result Performing Organization Address [facility] Co de Phone Number [facility] [address], [place] [address], [place] [phone] [employer] [facility] [address], [place] [address], [place] [phone] * (ABNORMAL) Zinc (05/11/2024 8:02 AM EST) Zinc 45(L) 60 - 130 mcg/dL 05/15/2024 11:53 AM EST [facility] ([place]) Comment: This test was developed and its analytical performance characteristics have been determined by [facility] [place], [place]. It has not been cleared or [...] ORDERABLES Fin al Result Performing Organization Address [facility] de Phone Number [facility]) [address] [place], [place] , * (ABNORMAL) Vitamin A (Retinol) (05/11/2024 8:02 AM EST) Pathologist [facility] Vitamin A (Retinol) 15(L) 38 - 98 mcg/dL 05/14/2024 11:11 PM EST [facility]) Comment: Vitamin supplementation within 24 hours prior to blood draw may affect the accuracy of the results. This test was developed and its analytical performance characteristics have been determined by [facility] [place], [place]. It has not been cleared or approved by the U.S. Food and Drug Administration. This assay has been validated pursuant to the CLIA regulations and is used for clinical purposes. Blood Structure of peripheral vein / Unknown Venipuncture / Unknown 05/11/2024 8:02 AM EST 05/11/2024 8:10 AM EST [facility]) - 05/14/2024 11:11 PM EST [facility] Received Date:[id number] Yunior Pérez MD LAB BLOOD ORDERABLES Fin al Result Performing Organization Address [facility] Co de Phone Number [facility]) [address] [place], [place] , [place] * (ABNORMAL) AFP Tumor Marker (05/11/2024 8:02 AM EST) Pathologist [facility] Alpha Fetoprotein, Tumor Marker 7.4(H) <6.1 ng/mL 05/14/2024 1:16 PM EST [employer] [facility] Comment: This test was performed using the Bakari Paco chemiluminescent method. Values obtained from different assay methods cannot be used interchangeably. AFP levels, regardless of value, should not be interpreted as absolute evidence of the presence or absence of disease. Blood Structure of peripheral vein / Unknown Venipuncture / Unknown 05/11/2024 8:02 AM EST 05/11/2024 8:15 AM EST Narrative [facility] - 05/14/2024 1:16 PM EST [facility] Received Date:[id number] us Yunior Pérez MD LAB BLOOD ORDERABLES Fin al Result Performing Organization Address City/[facility]/ZIP Co de Phone Number [facility] [address], [place] [address], [place] [phone] [employer] [facility] [address], [place] [address], [place] [phone] * (ABNORMAL) Nikhil-Richardson Virus VCA, IgG (05/11/2024 8:02 AM EST) EBV Viral Capsid Ag Ab (IGG) >750.00(H ) U/mL 05/11/2024 5:16 PM EST [employer] Comment: ? U/mL ? Interpretation ? ---- ? <18.00 ? Negative ? 18.00-21.99 ?Equivocal ? >21.99 ? Positive Blood Structure of peripheral vein / Unknown Venipuncture / Unknown 05/11/2024 8:02 AM EST 05/11/2024 8:15 AM EST Narrative [facility] - 05/11/2024 5:16 PM EST [facility] Received Date:[id number] us Yunior Pérez MD LAB BLOOD ORDERABLES Fin al Result Performing Organization Address City/[facility]/ZIP Co de Phone Number [facility] [address], [place] [address], [place] [phone] [employer] [facility] [address], [place] [address], * Hepatitis B Core Antibody, Total (05/11/2024 8:02 AM EST) Hepatitis B Core Ab Total NON-REACT COLLINS NON-REACT COLLINS 05/11/2024 11:44 AM EST [employer] Comment: For additional information, please refer to http://education.Palmap/faq/BAB833 (This link is being provided for informational/ educational purposes only.) Blood Structure of peripheral vein / Unknown Venipuncture / Unknown 05/11/2024 8:02 AM EST 05/11/2024 8:15 AM EST [facility] - 05/11/2024 11:44 AM EST [facility] Received Date: Yunior Pérez MD LAB BLOOD ORDERABLES Fin al Result [facility] [address] [facility] [address], [place] [address], [employer] [facility] [address], [place] [address], * (ABNORMAL) Vitamin D, 25-Hydroxy, Total, Immunoassay (05/11/2024 8:02 AM EST) Pathologist [facility] Calcidiol+ercalc idiol 13(L) 30 - 100 ng/mL 05/11/2024 11:52 AM EST [employer] Comment: Vitamin D Status ? 25-OH Vitamin D: Deficiency: ?<20 ng/mL Insufficiency: ? 20 - 29 ng/mL Optimal: ? > or = 30 ng/mL For 25-OH Vitamin D testing on patients on D2-supplementation and patients for whom quantitation of D2 and D3 fractions is required, the QuestAssureD(TM) 25-OH VIT D, (D2,D3), LC/MS/MS is recommended: order code [id number] (patients >2yrs). See Note 1 Note 1 For additional information, please refer to http://education.Trak/faq/OFQ018 (This link is being provided for informational/ educational purposes only.) Blood Structure of peripheral vein / Unknown Venipuncture / Unknown 05/11/2024 8:02 AM EST 05/11/2024 8:15 AM EST Narrative [facility] [place] - 05/11/2024 11:52 AM EST [facility] Received Date: us Yunior Pérez MD LAB BLOOD ORDERABLES Fin al Result Performing Organization Address [facility]/ZIP Co de Phone Number [facility] [address] [facility] [address], [place] [address], [employer] [facility] [address] [facility] [address], [place] [address], [place] [phone] * Mitochondrial Antibody w/Reflex (05/11/2024 8:02 AM EST) [facility] Mitochondrial Ab Screen NEGATIVE NEGATIVE 05/14/2024 3:03 PM EST [employer] [facility] Comment: The specimen was negative for cytoplasmic antibodies, however additional staining was observed suggesting the presence of Antinuclear Antibodies. Consider requesting order code 249, SHELLY Screen, IFA with Reflex to Titer and Pattern, or order code [id number], SHELLY Screen, IFA w/reflex Titer/Pattern, and Reflex to Multiplex 11 Ab [place], if clinically indicated. Blood Structure of peripheral vein / Unknown Venipuncture / Unknown 05/11/2024 8:02 AM EST 05/11/2024 8:13 AM EST Narrative [employer] [place] - 05/14/2024 3:03 PM EST [facility] Received Date: us Yunior Pérez MD LAB BLOOD ORDERABLES Fin al Result Performing Organization Address City/[facility] de Phone Number [facility] [place] [address] [facility] [address] [facility], [place] [address], [employer] [facility] [address], [place] [address], * Toxoplasma gondii Antibody, IgG (05/11/2024 8:02 AM EST) Toxoplasma Ab IgG <7.20 IU/mL 05/11/2024 9:20 PM EST [employer] [facility] Comment: ? IU/mL ?Interpretation ? ------ ? <7.20 ?Negative ? 7.20-8.79 ?Equivocal ? >8.79 ?Positive Blood Structure of peripheral vein / Unknown Venipuncture / Unknown 05/11/2024 8:02 AM EST 05/11/2024 8:13 AM EST Narrative [facility] - 05/11/2024 9:20 PM EST [facility] Received Date:[id number] Yunior Pérez MD LAB BLOOD ORDERABLES Fin al Result Performing Organization Address [facility]/ZIP Co de Phone Number [facility] [address] [facility] [address] [facility], [place] [address], [employer] [facility] [address], [place] [address], * (ABNORMAL) Hepatitis B Surface Antibody (05/11/2024 8:02 AM EST) Hepatitis B Surface Ab Immunity, Qn <5(L) > OR = 10 mIU/mL 05/11/2024 11:44 AM EST [employer] Comment: PATIENT DOES NOT HAVE IMMUNITY TO HEPATITIS B VIRUS. For additional information, please refer to http://Gotcha Ninjas.Palmap/faq/ZLQ370 (This link is being provided for informational/ educational purposes only). Blood Structure of peripheral vein / Unknown Venipuncture / Unknown 05/11/2024 8:02 AM EST 05/11/2024 8:15 AM EST Narrative [facility] [place] - 05/11/2024 11:44 AM EST [facility] Received Date:[id number] us Yunior Pérez MD LAB BLOOD ORDERABLES Fin al Result Performing Organization Address City/[facility]/ZIP Co de Phone Number [facility] [place] [address], [place] [address], [place] [phone] [employer] [address], [place] [address], [place] [phone] * Hepatitis B Surface Antigen w/Confirmation (05/11/2024 8:02 AM EST) Hepatitis B Surface Antigen NON-REACT COLLINS NON-REACT COLLINS 05/11/2024 11:44 AM EST [employer] Comment: For additional information, please refer to http://Gotcha Ninjas.Palmap/faq/QPP573 (This link is being provided for informational/ educational purposes only.) Blood Structure of peripheral vein / Unknown Venipuncture / Unknown 05/11/2024 8:02 AM EST 05/11/2024 8:15 AM EST Narrative [employer] [place] - 05/11/2024 11:44 AM EST [facility] Received Date:[id number] us Yunior Pérez MD LAB BLOOD ORDERABLES Fin al Result [facility] [place] [address] [facility] [address], [place] [address], [place] [phone] [employer] [facility] [address], [place] [address], * (ABNORMAL) Cytomegalovirus Antibody, IgG (05/11/2024 8:02 AM EST) Cytomegalovirus Antibody (IgG) 6.00(H) U/mL 05/12/2024 4:15 AM EST [employer] Comment: ? U/mL ? Interpretation ? ----- [...] 05/12/2024 4:15 AM EST [facility] Received Date: Yunior Pérez MD LAB BLOOD ORDERABLES Fin al Result [facility] [address] [facility] [address], [place] [address], [place] [phone] [employer] [facility] [address] [facility] [address] [facility], [place] [address], * (ABNORMAL) PTT (05/11/2024 8:02 AM EST) aPTT 33.2(H) 23.0 - 32.0 Seconds 05/11/2024 9:04 AM EST [facility] Comment: Current PTT reagent is not sensitive to detect all Lupus Anticoagulant (LA) Inhibitor Cases. ?? If a LA is suspected, please order a Lupus Anticoagulation w/ Reflex Test which is performed at [facility] in [place], [place]. Blood Structure of peripheral vein / Unknown Venipuncture / Unknown 05/11/2024 8:02 AM EST 05/11/2024 8:13 AM EST us Yunior Pérez MD LAB BLOOD ORDERABLES Fin al Result Performing Organization Address City/[facility] Co de Phone Number [facility] [employer] [facility] [address] [place] [address], [place] * Protime-INR (05/11/2024 8:02 AM EST) Pathologist [facility] PT 11.9 9.6 - 12.4 Seconds 05/11/2024 9:04 AM EST [facility] [facility] INR 1.1 0.9 - 1.1 05/11/2024 9:04 AM EST [facility] [facility] Comment:The optimal therapeu tic INR range for patients treated with Vitamin K antagonists (VKAS, e.g., Warfarin) is 2.0 to 3.5. Discuss the desired range with your doctor/care team. Blood Structure of peripheral vein / Unknown Venipuncture / Unknown 05/11/2024 8:02 AM EST 05/11/2024 8:13 AM EST us Yunior Pérez MD LAB BLOOD ORDERABLES Fin al Result Performing Organization Address City/[facility]/ZIP Co de Phone Number [facility] [employer] [facility] [address] [place] [address], [place] * Type and Screen (05/11/2024 8:02 AM EST) ABO Blood Type B 05/11/2024 9:09 AM EST [facility] RH Type Negative 05/11/2024 9:09 AM EST [facility] Expiration Date/Time 2024-05-14 23:59 05/11/2024 9:09 AM EST [facility] Antibody Screen Negative 05/11/2024 9:09 AM EST [facility] Blood Structure of peripheral vein / Unknown Venipuncture / Unknown 05/11/2024 8:02 AM EST 05/11/2024 8:06 AM EST Yunior Pérez MD LAB BLOOD BANK TEST [place] STORM Edited Result - Final BLOOD BANK INFCE [address] [id number], * Varicella Zoster Antibody, IgG (05/11/2024 8:02 AM EST) [facility] Varicella Zoster Virus Antibody 2.40 S/CO 05/11/2024 5:07 PM EST [employer] Comment: ?Signal to Cut-off ? S/CO ?Interpretation [...] EST 05/11/2024 8:13 AM EST Narrative [facility] [place] - 05/11/2024 5:07 PM EST [facility] Received Date:[id number] us Yunior Pérez MD LAB BLOOD ORDERABLES Fin al Result [facility] [address] [facility] [address], [place] [address], [employer] [facility] [address] [facility] [address], [place] [address], [place] [phone] * PSA (05/11/2024 8:02 AM EST) Pathologist [facility] PSA 0.04 <=4.00 ng/mL 05/11/2024 8:53 AM EST [facility] [facility] Comment: The total PSA [...] MD LAB BLOOD ORDERABLES Fin al Result [facility] [facility] [address] [place] [address], * Phosphorus (05/11/2024 8:02 AM EST) Phosphorus 3.2 2.5 - 4.5 mg/dL 05/11/2024 8:57 AM EST [facility] [facility] Blood Structure of peripheral vein / Unknown Venipuncture / Unknown 05/11/2024 8:02 AM EST 05/11/2024 8:15 AM EST us Yunior Pérez MD LAB BLOOD ORDERABLES Fin al Result [facility] [address] [place] [address], * Magnesium (05/11/2024 8:02 AM EST) MG 1.9 1.6 - 2.4 mg/dL 05/11/2024 8:57 AM EST [facility] Blood Structure of peripheral vein / Unknown Venipuncture / Unknown 05/11/2024 8:02 AM EST 05/11/2024 8:15 AM EST us Yunior Pérez MD LAB BLOOD ORDERABLES Fin al Result [facility] [address] [place] [address], * Hemoglobin A1c (05/11/2024 8:02 AM EST) Hemoglobin A1C 4.7 <5.7 % of total Hgb 05/12/2024 10:03 AM EST [employer] Comment: For the purpose of screening for the presence of diabetes: <5.7% ? Consistent with the absence of diabetes 5.7-6.4% ?Consistent with increased risk for diabetes ?(prediabetes) > or =6.5% ??Consistent with diabetes This assay result is consistent with a decreased risk of diabetes. Currently, no consensus exists regarding use of hemoglobin A1c for diagnosis of diabetes in children. According to [place] Diabetes Association (ADA) guidelines, hemoglobin A1c <7.0% represents optimal control in non- diabetic patients. Different metrics may apply to specific patient populations. Standards of Medical Care in Diabetes(ADA). ?? eAG (MG/DL) 88 mg/dL 05/12/2024 10:03 AM EST [employer] [facility] eAG (MMOL/L) 4.9 mmol/L 05/12/2024 10:03 AM EST [employer] [facility] Blood Structure of peripheral vein / Unknown Venipuncture / Unknown 05/11/2024 8:02 AM EST 05/11/2024 8:15 AM EST Narrative [facility] [place] - 05/12/2024 10:03 AM EST [facility] Received Date: us Yunior Pérez MD LAB BLOOD ORDERABLES Fin al Result Performing Organization Address City/[facility]/ZIP Co de Phone Number [facility] [address] [facility], [place] [address], [place] [phone] [employer] [facility] [address], [place] [address], [place] [phone] * Ferritin (05/11/2024 8:02 AM EST) Pathologist [facility] Ferritin 44.9 23.0 - 336.0 ng/mL 05/11/2024 8:57 AM EST [employer] [facility] Blood Structure of peripheral vein / Unknown Venipuncture / Unknown 05/11/2024 8:02 AM EST 05/11/2024 8:15 AM EST us Yunior Pérez MD LAB BLOOD ORDERABLES Fin al Result [employer] [facility] [employer] [facility] [address] [place] [id number], * (ABNORMAL) Bilirubin, Direct (05/11/2024 8:02 AM EST) Bilirubin, Direct 0.8(H) <=0.4 mg/dL 05/11/2024 8:57 AM EST [employer] [facility] Blood Structure of peripheral vein / Unknown Venipuncture / Unknown 05/11/2024 8:02 AM EST 05/11/2024 8:15 AM EST us Yunior Pérez MD LAB BLOOD ORDERABLES Fin al Result Performing Organization Address City/[facility]/ZIP Co de Phone Number [employer] [facility] [address] [place] [address], * Ethanol (05/11/2024 8:02 AM EST) Ethanol <10 <10 mg/dL 05/11/2024 8:53 AM EST [employer] [facility] Blood Structure of peripheral vein / Unknown Venipuncture / Unknown 05/11/2024 8:02 AM EST 05/11/2024 8:11 AM EST us Yunior Pérez MD LAB BLOOD ORDERABLES Fin al Result Performing Organization Address City/[facility] Co de Phone Number [employer] [facility] [address] [place] [address], * (ABNORMAL) Lipid panel (05/11/2024 8:02 AM EST) Cholesterol 142 <=199 mg/dL 05/11/2024 8:57 AM EST [facility] [facility] Triglycerides 82 <=149 mg/dL 05/11/2024 8:57 AM EST [employer] [facility] Cholesterol, HDL 71(H) 40 - 59 mg/dL 05/11/2024 8:57 AM EST [facility] [facility] Cholesterol, Non-HDL 71 mg/dL 05/11/2024 8:57 AM EST [facility] [facility] LDL Cholesterol 55 <100 mg/dL 05/11/2024 8:57 AM EST [facility] [facility] VLDL 16.4 mg/dL 05/11/2024 8:57 AM EST [facility] [facility] Cholesterol/HDL Ratio 2.0 <5.0 05/11/2024 8:57 AM EST [facility] [facility] Blood Structure of peripheral vein / Unknown Venipuncture / Unknown 05/11/2024 8:02 AM EST 05/11/2024 8:15 AM EST Narrative [employer] [facility] - 05/11/2024 8:57 AM [...] [facility] [address] [place] [address], * (ABNORMAL) Comprehensive Metabolic Panel (05/11/2024 8:02 [...] - 32 mmol/L 05/11/2024 8:57 AM EST [facility] Anion Gap 12 5 - 15 05/11/2024 8:57 AM EST [facility] Glucose 105(H) [...] - 5.2 g/dL 05/11/2024 8:57 AM EST [facility] Bilirubin, Total 1.5(H) 0.2 - 1.2 mg/dL 05/11/2024 8:57 AM EST [facility] Alkaline Phosphatase 165(H) 35 - 129 U/L 05/11/2024 8:57 AM EST [facility] AST 23 10 - 40 U/L 05/11/2024 8:57 AM EST [facility] ALT 11 10 - 40 U/L 05/11/2024 8:57 AM EST [facility] BUN 16 7 - 23 mg/dL 05/11/2024 8:57 AM EST [facility] eGFR 74 >=60 mL/min/1. 73m2 05/11/2024 8:57 AM EST [facility] Comment:The estimated glomer ular [...] - 4.2 g/dL 05/11/2024 8:57 AM EST [facility] A/G Ratio 1.2(L) 1.5 - 3.0 05/11/2024 8:57 AM EST [facility] Blood Structure of peripheral vein / Unknown Venipuncture / Unknown 05/11/2024 8:02 AM EST 05/11/2024 8:15 AM EST Yunior Pérez MD LAB BLOOD ORDERABLES Fin al Result [facility] [address] [place] [address], from Last 3 Months Insurance MEDICARE [facility] [address] [place] [id number] [facility] MCR Advance Directives Documents on File Type Date Recorded Patient Well Cleaner Expl [facility] Care Proxy 05/15/2024 3:29 PM 05-11 Care Teams Bottle Booth Attendant Relationship Specialty Start Date End Date Gulshan Chanel [address] [place] [address] PCP - General 04/17/24
--- NOTE | 2024-07-17 08:00 | MHC.PC.OV ---
Intake Visit Reasons: Discuss personal concerms Allergies No Known Allergies Allergy (Verified 07/17/24 08:03) Medication List - Last Reconciled 07/17/24 by TRACEE Corbett acetaminophen 650 mg (2 x 325 mg) PO Q6H PRN albuterol sulfate 90 mcg/actuation (Ventolin HFA) 1 puff inhalation QID PRN albuterol sulfate 90 mcg/actuation 2 inhalations inhalation QID PRN 30 days cholecalciferol (vitamin D3) 1,250 mcg PO QWEEK folic acid 1 mg PO DAILY furosemide 40 mg PO DAILY gabapentin 300 mg orally; 2 cap as needed during day and 3 at night 30 days ibuprofen 800 mg PO Q8H PRN 20 days magnesium 250 mg PO BID melatonin 5 mg PO BEDTIME PRN omeprazole 20 mg PO DAILY 90 days ondansetron 8 mg PO Q12H PRN 14 days potassium chloride ER 20 mEq PO DAILY 90 days ropinirole 0.5 mg PO BEDTIME sildenafil 25 mg PO DAILY PRN spironolactone 100 mg PO DAILY thiamine HCl (vitamin B1) 100 mg PO DAILY tramadol 50 mg PO BID PRN 30 days vitamin A 1 cap PO DAILY vitamin B complex 1 tab PO DAILY 90 days zinc sulfate 50 mg PO DAILY Tobacco use date assessed: 05/31/24 Dental Screening Dental Screen Date: 05/31/24 HPI Discuss personal concerms HPI Details History of Present Illness The patient is a 54-year-old male presenting with concerns of genital warts and chronic lower back pain. He wishes to have the genital warts removed and will be referred to Urology for this issue. He has a longstanding history of chronic lower back pain that previously rendered him a surgical candidate. However, his ongoing liver failure has necessitated a liver transplant, which is being arranged through [facility], thereby delaying any potential surgical resolution of his spinal issues. He does not recall any symptoms of cauda equina syndrome but does note persistent bilateral extremity weakness with associated radiculopathy. Additionally, gynecomastia develops as breast tenderness, although the patient denies concomitant discharge or masses. Ultrasound evaluation for this symptom is planned to ascertain further details. Review of Systems - Skin: Reports presence of genital warts. - Musculoskeletal: Reports significant history of chronic lower back pain; denies symptoms suggestive of cauda equina syndrome; reports bilateral extremity weakness with radiculopathy. - Endocrine/Breast: Reports tenderness of breast tissue; denies discharge or palpable masses. Plan Referral to Urology is planned for the management of genital warts. For chronic lower back pain with radiculopathy, close contact with the transplant team will be required due to his current liver failure status and impending liver transplant to discern future surgical possibilities. Diagnostic ultrasound is scheduled for evaluation of gynecomastia to determine the cause of the breast tenderness. Ongoing monitoring and collaboration with specialist teams are advised. Discussion Notes During the consultation, I discussed the necessity of consulting the Urology department for the removal of genital warts. The impact of liver failure on his ability to undergo back surgery was highlighted, stressing the importance of securing clearance from the transplant team at [facility] for any future surgical interventions. For breast tenderness, a diagnostic ultrasound was proposed to investigate gynecomastia further. The potential benefits, risks, and need for specialist involvement in each aspect of care were outlined clearly to the patient. Follow-up strategies, including continued oversight by his transplant team and adherence to current care protocols, were emphasized. Patient Instructions - Follow up with Urology as advised for genital wart management. - Maintain contact with your transplant team regarding your liver and spinal health. - Attend the scheduled ultrasound for breast evaluation. - Report any new symptoms to your healthcare provider promptly. [facility] Medical History End stage liver disease Alcoholic cirrhosis of liver Alcohol abuse Pancreatitis Elevated liver enzymes Electrolyte imbalance Asthma Personal history of nicotine dependence Weakness Anemia Neuropathy Edema Swelling of both lower extremities Depression COVID-19 virus RNA test result positive at limit of detection Vomiting Acute bronchitis Right hand pain Sciatica Lyme disease Autoimmune disease Surgical History No pertinent past surgical history Family History Father Heart attack Mother No problems noted. Sister No problems noted. Daughter No problems noted. Social History Household Members: Spouse Housing: Homeless Housing Other:: Patient is homeless, living in a small tent with his and dog Are you a primary primary care pediatrician to a significant other at home: No Do you presently have visiting nurse or other home services: No Alcohol intake: current Alcohol intake frequency: a few times a week Alcohol type: hard liquor Comment: refused bed alarm Patient Tobacco Use Status: Current someday Tobacco user Tobacco use type: Cigarette Cigarettes Per Day: 1 Years Smoked: 41 e-Cigarette/Vaping Use: Never Used Second Hand Smoke Exposure: Yes Substance Use Type: Marijuana Advance Directives Date on File: 09/29/22 service: Yes ([employer] - [id number]) Current occupational status: unemployed Cognitive needs: No Hearing needs: No Vision needs: No Questionnaire Thrive Questionnaire Date Thrive assessed: 03/15/24 I am a: Patient What is your living situation today?: I do not have a steady places to live I am staying at a hotel Within the past 12 months, did the food you bought not last and you didn't have the money to get more?: I choose not to answer this question Within the past 12 months, did you worry whether your food would run out before you got money to buy more?: I choose not to answer this question Do you have trouble paying for medicines?: No Do you have trouble getting transportation to medical appointments?: Yes Do you have trouble paying your heating and electricity bill?: I choose not to answer this question Do you have trouble taking care of your child, family member or friend?: No Do you have trouble with day-to-day activities such as bathing, preparing meals, shopping, managing finances, etc.?: Yes Are you currently unemployed and looking for a job?: No Are you interested in more education?: No Currently or been in a relationship where the following occur: No concerns reported THRIVE Score: 2 SILVINA-7 AMB Questionnaire SILVINA-7 Date SILVINA - 7 assessed: 05/31/24 Source: Developed by Drs. Jesus Shelton, Angelica Reagan, Víctor Gallardo and colleagues, with an educational stefano from [employer]. Physical exam (Primary Care) Tobacco/Smoking Status: Tobacco use Status Tobacco use date assessed 05/31/24 06/01/24 10:44 Patient Tobacco Use Status Current someday Tobacco 06/26/24 15:42 Tobacco use type Cigarette 06/26/24 15:42 e-Cigarette/Vaping Use Never Used 06/26/24 15:42 Thrive Assessment: Date of Thrive Assessment Date Thrive assessed 03/15/24 06/08/24 09:48 Currently or been in a relationship where the following occur: No concerns reported Telehealth Telehealth Telehealth Platform: Telephone Location of provider rendering services: practice address Location of patient: address on file Patient Identification confirmed using: Name, : Yes Telehealth method: voice only Patient verbally consented to treatment: Yes Patient verbally consented to billing insurance company: Yes Patient informed of any privacy concerns related to visit: Yes Minutes spent on Phone/Video with Pt.: 15 Coding Level of Care Code Tele Est Pt Level 3 (47387) Diagnoses Breast tenderness N64.4 End stage liver disease K72.10 Alcoholic cirrhosis of liver K70.30 Genital condyloma, 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 Benedict Miller - [facility] [place] Transplant/Hepatology - 03/2024) Code(s): K72.10 - Chronic hepatic failure without coma Category: Medical (3) Alcoholic cirrhosis of liver: Comment: (Decompensated alcoholic associated cirrhosis - [facility] - Dr. Benedict Miller [facility] [place] Transplant/Hepatology - 03/2024) Code(s): K70.30 - Alcoholic cirrhosis of liver without ascites Category: Medical (4) Genital condyloma, male: Code(s): A63.0 - Anogenital (venereal) warts Category: Medical (5) Nerve root compression: Code(s): G54.9 - Nerve root and plexus disorder, unspecified Category: Medical Plan . Orders: Orders US breast LT complete Today N64.4 - Mastodynia US breast RT complete Today N64.4 - Mastodynia Referrals Urology Referral A63.0 - Anogenital (venereal) warts
== END 2024-07-17 09:17 | disposition home or self-care (01) ==
LOC: HO.HMCC 06:54
PROVIDERS: PCP Nurse Practitioner Family; Visit Provider Nurse Practitioner Family
DX: N64.4 Mastodynia (principal); K72.10 Chronic hepatic failure without coma; K70.30 Alcoholic cirrhosis of liver without ascites; A63.0 Anogenital (venereal) warts; G54.9 Nerve root and plexus disorder, unspecified

== ENCOUNTER → 2024-07-17 06:53 | Outpatient (BNVA) | payer MEDICARE, SELFPAY | PROVIDERS: PCP Nurse Practitioner Family; Visit Provider Nurse Practitioner Family ==

== ENCOUNTER 2024-08-17 10:44 | Outpatient (AMB) | payer MEDICARE, MEDICAID, SELFPAY ==
--- NOTE | 2024-08-17 08:02 | A.OFFVIS_ITS ---
Intake Visit Reasons: Former Smoker Allergies No Known Allergies Allergy (Verified 07/17/24 08:03) HPI HPI Former Smoker: Details: Initial visit for this 54yo former smoker with a 35PYH. Patient started smoking at age 15 for 37 years at 1ppd. He quit in 2022. . Reports marijuana use. Denies second hand smoke exposure. Denies exposure to chemicals or substances like asbestos. . Denies known family history of lung cancer. Denies personal history of cancers. Denies chest CT in last year. . Denies recent travel outside the [place]. Denies recent respiratory illness or recent hospitalization for respiratory issues. History testing positive for COVID with minimal/no symptoms. Admits receiving COVID Vaccine. . Denies fever, chills, new/worsening cough, hemoptysis, hoarseness or dysphagia. Denies significant chest pain, significant dyspnea or unintentional weight loss. Patient Lung Cancer Screening Questionnaire reviewed with patient by provider. . Shared Decision Making Completed. Patient meets criteria. Discussed in detail with patient, the risk vs benefit of LDCT screening. Patient consents to proceed with scan. Discussed and encouraged continued smoking cessation. [facility] Medical History (Updated 08/17/24 @ 11:08 by Muna Syed PA-C) Esophageal varices Portal hypertensive gastropathy End stage liver disease Alcoholic cirrhosis of liver Alcohol abuse Pancreatitis Elevated liver enzymes Electrolyte imbalance Asthma Personal history of nicotine dependence Weakness Anemia Neuropathy Edema Swelling of both lower extremities Depression COVID-19 virus RNA test result positive at limit of detection Vomiting Acute bronchitis Right hand pain Sciatica Lyme disease Autoimmune disease Surgical History No pertinent past surgical history Family History Father Heart attack Mother No problems noted. Sister No problems noted. Daughter No problems noted. Social History (Updated 08/17/24 @ 10:53 by Muna Syed PA-C) Household Members: Spouse Housing: Homeless Housing Other:: Patient is homeless, living in a small tent with his and dog Are you a primary child care leader to a significant other at home: No Do you presently have visiting nurse or other home services: No Alcohol intake: current Alcohol intake frequency: a few times a week Alcohol type: hard liquor Comment: refused bed alarm Patient Tobacco Use Status: Current someday Tobacco user Tobacco use type: Cigarette Cigarettes Per Day: 1 Years Smoked: (onset 15yo, 1ppd x 37yrs, 35pyh - quit 2022) e-Cigarette/Vaping Use: Never Used Second Hand Smoke Exposure: Yes Substance Use Type: Marijuana Advance Directives Date on File: 09/29/22 service: Yes ([employer] - [id number]) Current occupational status: unemployed Cognitive needs: No Hearing needs: No Vision needs: No Assessment & Plan Assessment & Plan (1) Personal history of nicotine dependence: Comment: (onset 15yo, 1ppd x 37yrs, 35pyh - quit 2022) Code(s): Z87.891 - Personal history of nicotine dependence Category: Medical Plan: - SDM visit completed today in office. - Patient meets criteria for LDCT for lung cancer screening purposes and is asymptomatic. - Smoking cessation counseling offered. Patients can always call [phone]. - Will arrange for a LDCT scan of the chest for screening purposes at [facility]. - Risks, benefits, and alternatives were discussed in detail and the patient agrees to proceed. - Risks discussed include but are not limited to: radiation exposure, anxiety during testing and while awaiting results, false negatives, false positives and possibility of additional intervention such as further imaging or surgical procedures for benign disease. - Benefits are obviously detection of lung cancer at an early stage which can lead to improved outcomes. - Discussed the importance of screening program compliance with adherence to yea rly LDCT scan as scheduled - or sooner interval scans for personalized screening regimen. - Discussed follow up plan. Our office will send a letter discussing results and if needed set up phone call and office visit based on CT findings. - Patient educated on results categorization and the management decisions for suspicious findings potentially found on the screening LDCT scan. Any patient with a Lung RADS score of 3 or 4 will be reviewed by a multidisciplinary team at [facility] to form a plan of action in regards to scan findings. - If further work up is warranted for a suspicious lung finding this will be followed by the Lung Cancer Screening program in conjunction with the Thoracic Surgery Department at [facility]. - A copy of the office note and LDCT will be sent to the patient's PCP - as well as documentation on any associated further plans of care. - Incidental findings on LDCT are the PCP's responsibility. These findings are indicated with an S finding on the LDCT Assessment. A note discussing the findings will be sent to the PCP who is then responsible for further management. - All questions answered.? Coding Level of Care Code Lung Cancer Screening G0296 Diagnoses Personal history of nicotine dependence Z87.891
--- OUTSIDE RECORDS SUMMARY | 2024-08-17 11:30 | XMS_ITS | Clinical Summary ---
Author Organization [facility] Address [address] [place] [address] Care Team Providers Care Supervisor Cabinetmaker Name Role Phone Gulshan Chanel Primary Care [...] extended release Take by mouth. 4 Active kcdhluj-WNOF-riv-va ler-hops-lm 0.24-59-421-200 mg capsule 5 mg. 4 Active magnesium [...] by mouth 2 (two) times a day. 28913 mL 3 5 Active vitamin A 3,000 [...] Encounters Date Type Department Care Team Description 08/08/2024 Telephone [facility] Transplant Department [address] [place] [address] Adolfo Elizabeth 08/07/2024 Telephone [facility]plant Department [address] [place] [address] Adolfo Elizabeth 08/06/2024 Telephone [facility] Transplant Department [address] [place] [address] Radha Higginbotham [facility] social worker masters 08/02/2024 Orders Only [facility] Transplant Department [address] [place] [address] [phone] Nathan Ortiz MD 08/01/2024 Results Follow-Up [facility] [address] [place] [address] [phone] Angela Weaver, LUDY 08/01/2024 Orders Only [facility] Transplant Department [address] [place] [address] [phone] Angela Weaver, LUDY Encounter for pre-transplant evaluation for liver transplant (Primary Dx); Alcoholic cirrhosis of liver with ascites (HCC); Alcohol use disorder, severe, in sustained remission (HCC) 07/20/2024 Telephone [facility] Transplant Department [address] [place] [address] [phone] Angela Weaver RN 06/27/2024 Results Follow-Up [facility] [address] [place] [address] [phone] Angela Weaver RN 06/27/2024 Orders Only [facility] Department [address] [place] [address] [phone] Provider, Timothy, 06/19/2024 Telephone [facility] Department [address] [place] [address] [phone] Angela Weaver, LUDY 06/19/2024 Orders Only [facility] Department [address] [place] [address] [phone] Angela Weaver, LUDY Pathological fracture of vertebra, unspecified pathological cause, initial encounter (Primary Dx) 06/13/2024 Orders Only [facility] Transplant Department [address] [place] [address] [phone] Provider, Unknown, 06/12/2024 Results Follow-Up [facility] [address] [place] [address] [phone] Angela Weaver, LUDY 06/11/2024 10:30 AM EDT Follow-Up [facility] [address] [place] [address] [phone] Nathan Ortiz MD Alcohol use disorder, severe, in sustained remission (Primary Dx); Alcoholic cirrhosis of liver with ascites 06/11/2024 9:30 AM EDT Clinical Support [facility] [address] [place] [address] [phone] Bella Aguilar RN Encounter for pre-transplant evaluation for liver transplant (Primary Dx) 06/11/2024 Abstract [facility] Department [address] [place] [address] [phone] Yunior Pérez MD 06/11/2024 External Result Entry [facility] [address] [place] [address] [phone] Angela Weaver RN 06/11/2024 Orders Only [facility] [address] [place] [address] [phone] Timothy Jones MD 06/06/2024 Orders Only [facility] [address] [place] [address] [phone] Angela Weaver, LUDY Alcoholic cirrhosis of liver with ascites (Primary Dx); Awaiting organ transplant 05/24/2024 Telephone [facility] Department [address] [place] [address] [phone] Angela Weaver, LUDY 05/18/2024 Orders Only [facility]plant Department [address] [place] [address] [phone] Angela Weaver, LUDY Encounter for pre-transplant evaluation [...] Care Team (Late st Contact Info) Description 08/23/2024 4:30 PM EDT Follow-Up [facility] [address] [place] [address] Yunior Pérez MD [address] [place] [address] 09/12/2024 1:00 PM EDT Telehealth [facility] [address] [place] [address] Mariia Zambrano MD [address] [place] [address] Health Maintenance Due Date Last Done Comments [...] 50+ Years Completed Procedures * Due to [place] state law, this organization might not be sharing negative HIV tests. Procedure Name Priority Date/Time Associated Diagnosis Comments IMAGING - SCANNED Routine 07/26/2024 4:1 1 PM EDT HEART & VASCULAR - SCANNED Routine 06/11/2024 [...] SCANNED Routine 05/28/2024 12:[address] CHEST W CONTRAST Routine 05/11/2024 1 1:03 AM EST Encounter for pre-transplant evaluation for liver transplant HEPATITIS C ANTIBODY W/REFLEX TO HCV RNA, QUANTITATIVE PCR Routine 05/11/2024 8:02 AM EST Encounter for pre-transplant evaluation for liver transplant from Last 3 Months or Most Recently Relevant to Health Maintenance Results * Due to [place] state law, this organization might not be sharing negative HIV tests. * IMAGING - SCANNED (07/26/2024 4:11 PM EDT) Anatomical Region Laterality Modality Other us Unknown Provider MD SCANNED PROCEDURES Final Res ult * HEART & VASCULAR - SCANNED (06/11/2024 10:14 AM EDT) Only the most recent of4 resultswithin the time period is included. Anatomical Region Laterality Modality Other us Unknown Provider MD SCANNED PROCEDURES Edited Re sult - Final * ECG 12 lead (06/11/2024 10:03 AM EDT) Ventricular Rate EKG 66 BPM MUSE EKG Atrial Rate 66 BPM MUSE EKG CO Interval 140 ms MUSE EKG QRS Interval 74 ms MUSE EKG QT Interval 420 ms MUSE EKG QTC Interval 440 ms MUSE EKG P [place] 57 degrees MUSE EKG R [place] 9 degrees MUSE EKG T Wave [place] 59 degrees MUSE EKG 06/11/2024 10:0 3 AM EDT 06/16/2024 5:30 PM EDT Impressions MUSE EKG - 06/16/2024 5:30 PM EDT NORMAL SINUS RHYTHM NONSPECIFIC ST ABNORMALITY LOW VOLTAGE QRS NO PREVIOUS ECGS AVAILABLE Confirmed by Zohra Aleman ([id number]) on 06/16/2024 5:30:47 PM Online Merchant Estee LOPEZ ECG ORDERABLES Final Resu lt [...] Unknown Provider LAB HISTORICAL RESULTS Final Result [facility] * CT CHEST W CONTRAST (05/11/2024 11:03 [...] obtain the completed interpretation. ? Workstation ID: [id number] Up-to-date CT equipment and radiation dose reduction techniques were employed. CTDIvol: 3.0 - 14.6 mGy. DLP: 1699 mGy-cm. ??The following accession numbers are related to this dose report [id number]: [id number] Narrative 05/17/2024 4:11 PM EST Indication: ??pre [...] vertebral disease. Bilateral gynecomastia. Resulting Agency Comment [id number] Procedure Note Sidney Delatorre MD PhD - [...] possible to obtain thecompleted interpretation. Workstation ID: [id number] Up-to-date CT equipment and radiation dose reduction techniques wereemployed. CTDIvol: 3.0 - 14.6 mGy. DLP: 1699 mGy-cm. The followingaccession numbers are related to this dose report [id number]: [id number] Yunior Pérez MD IM CT PROCEDURES Final Result * Hepatitis C Antibody w/Reflex to PCR (05/11/2024 8:02 AM EST) Hepatitis C Antibody NON-REACT COLLINS NON-REACT COLLINS 05/11/2024 11:44 AM EST [facility] Comment: HCV antibody was non-reactive. There is no laboratory evidence of HCV infection. In most cases, no further action is required. However, if recent HCV exposure is suspected, a test for HCV RNA (test code 74566) is suggested. For additional information please refer to http://education.[employer]/faq/KEV49b2 (This link is being provided for informational/ educational purposes only.) Blood Structure of peripheral vein / Unknown Venipuncture / Unknown 05/11/2024 8:02 AM EST 05/11/2024 8:15 AM EST [facility] - 05/11/2024 11:44 AM EST [facility] Received Date: Yunior Pérez MD LAB BLOOD ORDERABLES Fin al Result [facility] [address] [facility] [address], [place] [address], [place] [phone] [employer] [facility] [address] [facility] [address], [place] [address], from Last 3 Months or Most Recently Relevant to Health Maintenance Insurance [facility] [place] [place] [address] [facility] Advance Directives Documents on File Type Date Recorded Patient Information Coder Expl [facility] Health Care Proxy 05/15/2024 3:29 PM 05-11 Care Teams Supervisor Cabinetmaker Relationship Specialty Start Date End Date Gulshan Chanel [address] [place] [address] PCP - General 04/17/24
== END 2024-08-17 11:18 | disposition home or self-care (01) ==
LOC: HO.HPS 10:44
PROVIDERS: PCP Nurse Practitioner Family; Referring Provider Nurse Practitioner Family; Visit Provider Physician Assistant Medical
DX: Z87.891 Personal history of nicotine dependence (principal)
CPT/HCPCS: G0296

== ENCOUNTER 2024-08-17 11:07 | Outpatient (REF) | payer MEDICARE, SELFPAY ==
--- NOTE | ~2024-08-17 | CT_ITS ---
CLINICAL HISTORY: Z87.891 - Personal history of nicotine dependence CT lung cancer screening (LDCT) Comparison: None Technique: Axial CT images of the chest using low-dose technique. Referring provider counseled the patient on shared decision-making for LDCT screening. Additional counseling was provided on smoking cessation. Effective radiation dose total: DLP 46.1 mGycm, CTDIvol 1.3 mGy. Findings: Lung: No solid or semi solid lesion. Coronary artery calcifications: Moderate. Limited upper abdomen: Ascites. Other: Pulmonary bullous disease with areas of scarring or subsegmental atelectasis. Impression: Category 1: Normal semi: Continue annual screening. Category 1: Normal; continue annual screening Category 2: Benign appearance or behavior, continue annual screening Category 3: Probably benign, [address] recommended Category 4A: Suspicious, [address] recommended; may consider PET/CT Category 4B: Suspicious, Additional diagnostics and/or tissue sampling recommended Category 4X: Suspicious, Additional diagnostics and/or tissue sampling recommended Category 0: Recalls (incomplete screen due to Incomplete coverage, Noise, Respiratory motion, Expiration, Obscured by acute abnormality) This document has been electronically signed by: Rodney Pritchett MD on 08/18/2024 10:34:26
== END 2024-08-17 11:08 | disposition home or self-care (01) ==
LOC: HO.CT 11:07
PROVIDERS: PCP Nurse Practitioner Family; Visit Provider Physician Assistant Medical
DX: Z12.2 Encounter for screening for malignant neoplasm of respiratory organs (principal); Z87.891 Personal history of nicotine dependence
CPT/HCPCS: 71271; G0296

== ENCOUNTER → 2024-08-17 11:10 | Outpatient (BNV) | payer MEDICARE, SELFPAY | PROVIDERS: PCP Nurse Practitioner Family; Visit Provider Specialist | DX: Z12.2 Encounter for screening for malignant neoplasm of respiratory organs (principal); Z87.891 Personal history of nicotine dependence | CPT/HCPCS: 71271 ==

== ENCOUNTER → 2024-09-04 11:00 | Outpatient (BNV) | payer MEDICARE, MEDICAID, SELFPAY | PROVIDERS: PCP Nurse Practitioner Family; Visit Provider Internal Medicine | DX: N64.4 Mastodynia (principal) | CPT/HCPCS: 76642; 77066; G0279 ==

== ENCOUNTER 2024-09-04 11:05 | Outpatient (REF) | payer MEDICARE, MEDICAID, SELFPAY ==
--- NOTE | ~2024-09-04 | US_ITS ---
EXAMINATION: MM DIAGNOSTIC DIGITAL BREAST TOMOSYNTHESIS, BILATERAL Bilateral Limited ultrasound. CLINICAL INFORMATION: Bilateral mastodynia. COMPARISON: Mammography: Baseline. TECHNIQUE: Digital breast mammography with tomosynthesis is performed in both the craniocaudal and mediolateral oblique views along with computer-aided detection (CAD). FINDINGS: There is bilateral retroareolar marked nodular gynecomastia. No suspicious calcifications or other abnormal findings. Targeted color Doppler ultrasound thinning in the bilateral retroareolar regions demonstrates moderate nodular retroareolar gynecomastia. There is no sonographic suspicious finding. Results are provided to the patient at time of visit by the technologist. US/US breast BI limited mamm only IMPRESSION: Bilateral nodular marked retroareolar gynecomastia. Benign. Recommend clinical evaluation and follow-up. ASSESSMENT: BI-RADS BI-RADS 2 - Benign Findings RECOMMENDATION: Recommend clinical evaluation and follow-up. Electronically signed by: Tamera Urbina DO 09/04/2024 11:53 AM EDT
--- NOTE | ~2024-09-04 | MM_ITS ---
EXAMINATION: MM DIAGNOSTIC DIGITAL BREAST TOMOSYNTHESIS, BILATERAL Bilateral Limited ultrasound. CLINICAL INFORMATION: Bilateral mastodynia. COMPARISON: Mammography: Baseline. TECHNIQUE: Digital breast mammography with tomosynthesis is performed in both the craniocaudal and mediolateral oblique views along with computer-aided detection (CAD). FINDINGS: There is bilateral retroareolar marked nodular gynecomastia. No suspicious calcifications or other abnormal findings. Targeted color Doppler ultrasound thinning in the bilateral retroareolar regions demonstrates moderate nodular retroareolar gynecomastia. There is no sonographic suspicious finding. Results are provided to the patient at time of visit by the technologist. MM/MM tomosynthesis diagnostic BI IMPRESSION: Bilateral nodular marked retroareolar gynecomastia. Benign. Recommend clinical evaluation and follow-up. ASSESSMENT: BI-RADS BI-RADS 2 - Benign Findings RECOMMENDATION: Recommend clinical evaluation and follow-up. Electronically signed by: Tamera Urbina DO 09/04/2024 11:53 AM EDT
--- OUTSIDE RECORDS SUMMARY | 2024-09-04 12:42 | XMS_ITS | Clinical Summary ---
Author Organization [facility] Address [address] [place] [address] Care Team Providers Care Lockmaker Name Role Phone Gulshan Chanel Primary Care [...] extended release Take by mouth. 4 Active rkasjug-UPFY-oks-va ler-hops-lm 0.99-88-854-200 mg capsule 5 mg. 4 Active magnesium [...] by mouth 2 (two) times a day. 72904 mL 3 5 Active vitamin A 3,000 mcg (10,000 unit) capsule Take 1 capsule (10,000 Units total) by mouth once a day. 90 capsule 1 5 11/13/19 25 Active cholecalciferol (VITAMIN D3) 1,250 mcg (50,000 unit) capsule Take 1 capsule (50,000 Units total) by mouth once a week. 12 capsule 5 Active sildenafiL (VIAGRA) 25 mg tablet SMARTSI [...] Encounters Date Type Department Care Team Description 08/29/2024 Results Follow-Up [facility] Transplant Services [address] [place] [address] [phone] Angela Weaver RN 08/29/2024 Documentation [facility] Transplant Department [address] [place] [address] Sara Strickland RN ABO Dual Validation 08/29/2024 Abstract [facility] Transplant Department [address] [place] [address] Yunior Pérez MD 08/29/2024 Documentation [facility] Transplant Department [address] [place] [address] [phone] Angela Weaver RN ABO Dual Validation 08/23/2024 Telephone [facility] Transplant Department [address] [place] [address] [phone] Angela Weaver, LUDY 08/08/2024 Telephone [facility] Transplant Department [address] [place] [address] [phone] Adolfo Elizabeth 08/07/2024 Telephone [facility] Transplant Department [address] [place] [address] [phone] Adolfo Elizabeth 08/06/2024 Telephone [facility] Transplant Department [address] [place] [address] 93214 Radha Garcia [facility] 08/02/2024 Orders Only [facility] Transplant Department [address] [place] [address] 01641 Nathan Ortiz MD 08/01/2024 Results Follow-Up [facility] Transplant Services [address] [place] [address] [phone] Angela Weaver RN 08/01/2024 Orders Only [facility] Transplant Department [address] [place] [address] [phone] Angela Weaver, LUDY Encounter for pre-transplant evaluation for liver transplant (Primary Dx); Alcoholic cirrhosis of liver with ascites (HCC); Alcohol use disorder, severe, in sustained remission (HCC) 07/20/2024 Telephone [facility] Transplant Department [address] [place] [address] [phone] Angela Weaver, LUDY 06/27/2024 Results Follow-Up [facility] Transplant Services [address] [place] [address] [phone] Angela Weaver, LUDY 06/27/2024 Orders Only [facility] Transplant Department [address] [place] [address] 82434 ProviderTimothy MD 06/19/2024 Telephone [facility] Transplant Department [address] [place] [address] [phone] Angela Weaver, LUDY 06/19/2024 Orders Only [facility] Transplant Department [address] [place] [address] [phone] Angela Weaver RN Pathological fracture of vertebra, unspecified pathological cause, initial encounter (Primary Dx) 06/13/2024 Orders Only [facility] Transplant Department [address] [place] [address] [phone] Provider, Tiomthy, 06/12/2024 Results Follow-Up [facility] Transplant [facility] [address] [place] [address] [phone] Angela Weaver RN 06/11/2024 10:30 AM EDT Follow-Up [facility] Transplant [facility] [address] [place] [address] [phone] Nathan Ortiz MD Alcohol use disorder, severe, in sustained remission (Primary Dx); Alcoholic cirrhosis of liver with ascites 06/11/2024 9:30 AM EDT Clinical Support [facility] [address] [place] [address] [phone] Bella Aguilar RN Encounter for pre-transplant evaluation for liver transplant (Primary Dx) 06/11/2024 Abstract [facility] Transplant Department [address] [place] [address] 08217 Yunior Pérez MD 06/11/2024 External Result Entry [facility] Transplant Department [address] [place] [address] 84076 Angela Weaver RN 06/11/2024 Orders Only [facility] Transplant Department [address] [place] [address] [phone] Provider, MD Timothy 06/06/2024 Orders Only [facility] Transplant Department [address] [place] [address] [phone] Angela Weaver RN Alcoholic cirrhosis of liver with ascites (Primary Dx); Awaiting organ transplant from Last 3 Months Immunizations Immunization Administration [...] Care Team (Late st Contact Info) Description 09/12/2024 1:00 PM EDT Telehealth [facility] Transplant Services [address] [place] [address] 9[address] Mariia Zambrano MD [address] [place] [address] 09/18/2024 2:30 PM EDT Telehealth [facility] Transplant [facility] [address] [place] [address] 86866 Yunior Pérez MD [address] [place] [address] Health Maintenance Due Date Last Done Comments Cologuard 1969 Colon Cancer Screening 1969 Colonoscopy 1969 FOBT / Fit Test 1969 Sigmoidoscopy 1969 Medicare AWV 1970 COVID-19 Vaccine ( - season) 2023 Alcohol/Substance Use Screening 03/21/2024 Depression [...] 50+ Years Completed Procedures * Due to [place] state law, this organization might not be sharing negative HIV tests. Procedure Name Priority Date/Time Associated Diagnosis Comments LIVER PRE EXTERNAL PANEL Routine 08/28/2024 5:20 PM EDT IMAGING - SCANNED Routine 07/26/2024 4:1 1 PM EDT HEART & VASCULAR - SCANNED Routine 06/11/2024 10:14 AM EDT ECG 12-LEAD Routine 06/11/2024 10:03 AM EDT LIVER PRE EXTERNAL PANEL Routine 06/06/2024 3:54 PM EDT TYPE AND SCREEN - TRANSPLANT MANUAL ABSTRACTION Routine 06/06/2024 3:[address] CHEST W CONTRAST Routine 05/11/2024 1 1:03 AM EST Encounter for pre-transplant evaluation for liver transplant HEPATITIS C ANTIBODY W/REFLEX TO HCV RNA, QUANTITATIVE PCR Routine 05/11/2024 8:02 AM EST Encounter for pre-transplant evaluation for liver transplant from Last 3 Months or Most Recently Relevant to Health Maintenance Results * Due to [place] state law, this organization might not be sharing negative HIV tests. * LIVER PRE EXTERNAL PANEL (08/28/2024 5:20 PM EDT) Only the most recent of2 resultswithin the time period is included. Sodium 134 mmol/L [facility] Potassium 4.8 [facility] Chloride 99 [facility] Carbon Dioxide 21 [facility] Glucose 107 [facility] BUN 13 mg/dL [facility] Creatinine 1.01 mg/dL [facility] Calcium 9.4 mg/dL [facility] Total Protein 7.0 g/dL [facility] Albumin 4.0 g/dL [facility] Bilirubin, Total 1.6 mg/dL [facility] Alkaline Phosphatase 152 U/L [facility] AST 25 U/L [facility] ALT 10 U/L [facility] WBC 7.1 10*3/uL [facility] Hgb 11.6 [facility] Hematocrit 35.7 % [facility] Platelets 169 10*3/uL [facility] INR 1.20 [facility] Alpha Fetoprotein, Tumor Marker 7.0 [facility] 08/28/2024 5:20 PM EDT us Yunior Pérez MD LAB BLOOD ORDERABLES Fin al Result [facility] * IMAGING - SCANNED (07/26/2024 4:11 PM EDT) Anatomical Region Laterality Modality Other us Unknown Provider SCANNED PROCEDURES Final Res ult * HEART & VASCULAR - SCANNED (06/11/2024 10:14 AM EDT) Anatomical Region Laterality Modality Other Unknown Provider SCANNED PROCEDURES Edited Re sult - Final * ECG 12 lead (06/11/2024 10:03 AM EDT) Ventricular Rate EKG 66 BPM MUSE EKG Atrial Rate 66 BPM MUSE EKG [place] Interval 140 ms MUSE EKG QRS Interval 74 ms MUSE EKG QT Interval 420 ms MUSE EKG QTC Interval 440 ms MUSE EKG P [facility] 57 degrees MUSE EKG R [facility] 9 degrees MUSE EKG T Wave [facility] 59 degrees MUSE EKG 06/11/2024 10:0 3 AM EDT 06/16/2024 5:30 PM EDT Impressions MUSE EKG - 06/16/2024 5:30 PM EDT NORMAL SINUS RHYTHM NONSPECIFIC ST ABNORMALITY LOW VOLTAGE QRS NO PREVIOUS ECGS AVAILABLE Confirmed by Zohra Aleman ([id number]) on 06/16/2024 5:30:47 PM Wastewater Treatment Engineer Estee LOPEZ ECG ORDERABLES Final Resu lt MUSE EKG * TYPE AND SCREEN - TRANSPLANT MANUAL ABSTRACTION (06/06/2024 3:54 PM EDT) Pathologist [facility] ABO B [facility] RH Negative [facility] Blood, [...] obtain the completed interpretation. ? Workstation ID: [id number] Up-to-date CT equipment and radiation dose reduction techniques were employed. CTDIvol: 3.0 - 14.6 mGy. DLP: 1699 mGy-cm. ??The following accession numbers are related to this dose report [id number]: [id number] Narrative 05/17/2024 4:11 PM EST Indication: ??pre [...] vertebral disease. Bilateral gynecomastia. Resulting Agency Comment [id number] Procedure Note Sidney Delatorre MD PhD - [...] possible to obtain thecompleted interpretation. Workstation ID: [id number] Up-to-date CT equipment and radiation dose reduction techniques wereemployed. CTDIvol: 3.0 - 14.6 mGy. DLP: 1699 mGy-cm. The followingaccession numbers are related to this dose report [id number]: [id number] us Yunior Pérez MD IMG CT PROCEDURES Final Result * Hepatitis C Antibody w/Reflex to PCR (05/11/2024 8:02 AM EST) Hepatitis C Antibody NON-REACT COLLINS NON-REACT COLLINS 05/11/2024 11:44 AM EST [facility] Comment: HCV antibody was non-reactive. There is no laboratory evidence of HCV infection. In most cases, no further action is required. However, if recent HCV exposure is suspected, a test for HCV RNA (test code 85906) is suggested. For additional information please refer to http://education.[employer]/faq/PSQ74t4 (This link is being provided for informational/ educational purposes only.) Blood Structure of peripheral vein / Unknown Venipuncture / Unknown 05/11/2024 8:02 AM EST 05/11/2024 8:15 AM EST Narrative [facility] - 05/11/2024 11:44 AM EST [facility] Received Date:[id number] us Yunior Pérez MD LAB BLOOD ORDERABLES Fin al Result [facility] [address] [facility] [address], [place] [address], [facility] [address] [facility] [address] [place] [address], [place] [phone] from Last 3 Months or Most Recently Relevant to Health Maintenance Insurance MEDICARE [facility] MEDICARE [facility] Advance Directives Documents on File Type Date Recorded Patient Building Manager Expl [facility] Health Care Proxy 05/15/2024 3:29 PM 05-11 Care Teams Lockmaker Relationship Specialty Start Date End Date Gulshan Chanel [address] [place] [address] PCP - General 04/17/24
== END 2024-09-04 11:06 | disposition home or self-care (01) ==
LOC: HO.MAMMO 11:05
PROVIDERS: PCP Nurse Practitioner Family; Visit Provider Nurse Practitioner Family
DX: N64.4 Mastodynia (principal)
CPT/HCPCS: 76642; 77062; 77066

== ENCOUNTER 2024-09-25 13:03 | Outpatient (AMB) | payer MEDICARE, MEDICAID, SELFPAY ==
--- NOTE | 2024-09-25 13:10 | A.OFFVIS_ITS ---
Intake Visit Reasons: venereal warts Intake Note: New patient presents today for initial visit for venereal warts Urology Medication:Potassium, Sildenafil, Vitamin B1 Blood Thinner:None Antibiotic Allergies:None Allergies No Known Allergies Allergy (Verified 09/25/24 13:58) Medication List - Last Reconciled 09/25/24 by TRACEE Bernal acetaminophen 650 mg (2 x 325 mg) PO Q6H PRN albuterol sulfate 90 mcg/actuation (Ventolin HFA) 1 puff inhalation QID PRN albuterol sulfate 90 mcg/actuation 2 inhalations inhalation QID PRN 30 days atorvastatin 20 mg PO BEDTIME 90 days cholecalciferol (vitamin D3) 1,250 mcg PO QWEEK 90 days folic acid 1 mg PO DAILY furosemide 40 mg PO DAILY gabapentin 300 mg orally; 2 cap as needed during day and 3 at night 30 days ibuprofen 800 mg PO Q8H PRN 20 days magnesium 250 mg PO BID melatonin 5 mg PO BEDTIME PRN omeprazole 20 mg PO DAILY 90 days ondansetron 8 mg PO Q12H PRN 14 days potassium chloride ER 20 mEq PO DAILY 90 days ropinirole 0.5 mg PO BEDTIME spironolactone 100 mg PO DAILY tadalafil (Cialis) 5 mg PO DAILY 90 days tadalafil (Cialis) 10 mg PO .PRN PRN 90 days thiamine HCl (vitamin B1) 100 mg PO DAILY tramadol 50 mg PO BID PRN 30 days trazodone 100 mg PO BEDTIME PRN vitamin A 1 cap PO DAILY vitamin B complex 1 tab PO DAILY 90 days zinc sulfate 50 mg PO DAILY HPI Comments Details: Tho is a 54-year-old male patient of Dr. Regalado who was accompanied by his significant other at today's office visit. He has a past medical history of esophageal varices, portal hypertension, end-stage liver disease status post ass transplant March of 2024, alcoholic cirrhosis of the liver, alcohol abuse, pancreatitis, elevated liver enzymes, asthma, history of nicotine dependence, anemia, neuropathy, depression, and Lyme disease. He presents to the office today as a new patient for genital herpes as well as erectile dysfunction. In discussion with the patient today he reports having followed up with his PCP and discussing birthmark to his penis that he has had most of his life however was unsure as if this was potential for HPV/herpes. In assessment of the patient today the penis is circumcised it does appear there is a discolored area nevus to the anterior portion of the penile shaft. There is mild dryness throughout the penile shaft. There otherwise was no open areas, les ions, and or abnormalities noted. He does discuss his ongoing issues with erectile dysfunction over the last 18 months. He reports having followed up with his PCP and was prescribed Viagra however was unable to picker the prescription. We did discussed at length potential causes of ED as well as further treatment options and risks and benefits of these treatment options. We discussed the importance of lifestyle modifications to assist with ED as well as overall health and well-being. Will obtain PSA and testosterone free and total for further assessment evaluation. He does report being able to obtain an erection however feels maintaining erections adequate for penetration are difficult. He otherwise denies any bothersome urinary issues. He denies urinary urgency, urinary frequency, incontinence, nocturia, hematuria, dysuria, foul smelling urine, changes to urinary stream, flank pain, fever, and or chills. He is happy with his current voiding parameters. All questions were answered. He otherwise offers no other issues or concerns at this time. [facility] Medical History Gynecomastia Esophageal varices Portal hypertensive gastropathy End stage liver disease Alcoholic cirrhosis of liver Alcohol abuse Pancreatitis Elevated liver enzymes Electrolyte imbalance Asthma Personal history of nicotine dependence Weakness Anemia Neuropathy Edema Swelling of both lower extremities Depression COVID-19 virus RNA test result positive at limit of detection Vomiting Acute bronchitis Right hand pain Sciatica Lyme disease Autoimmune disease Surgical History No pertinent past surgical history Family History Father Heart attack Mother No problems noted. Sister No problems noted. Daughter No problems noted. Social History Household Members: Spouse Housing: Homeless Housing Other:: Patient is homeless, living in a small tent with his and dog Are you a primary care center manager to a significant other at home: No Do you presently have visiting nurse or other home services: No Alcohol intake: current Alcohol intake frequency: a few times a week Alcohol type: hard liquor Comment: refused bed alarm Patient Tobacco Use Status: Current someday Tobacco user Tobacco use type: Cigarette Cigarettes Per Day: 1 Years Smoked: (onset 15yo, 1ppd x 37yrs, 35pyh - quit 2022) e-Cigarette/Vaping Use: Never Used Second Hand Smoke Exposure: Yes Substance Use Type: Marijuana Advance Directives Date on File: 09/29/22 service: Yes ([employer] - [id number]) Current occupational status: unemployed Cognitive needs: No Hearing needs: No Vision needs: No Review of Systems Const All systems reviewed & are unremarkable except as noted in HPI and below Physical Exam Const General: cooperative, comfortable, no acute distress, well developed, alert and awake Orientation/consciousness: patient oriented x3 HEENT Head: Yes normal to inspection, Yes normocephalic and Yes atraumatic Ears: hearing grossly normal bilaterally Eyes General: appearance normal, both eyes and all related structures Neck Neck: Yes normal visual inspection and Yes trachea midline Chest Chest palpation & inspection: normal inspection of the chest Resp Effort & Inspection: normal respiratory effort and able to speak in complete sentences Cardio Rate: regular rate GI Inspection: Yes normal to inspection General: Yes no CVA tenderness Penis: normal penis and circumcised Back/Spine/Pelvis Back: no CVA tenderness Skin General skin exam: no rashes or lesions noted Neuro General: patient oriented x3 Extrem General: Yes normal to inspection Psych Appearance: grossly normal and well kempt Mental Status: mental status grossly normal Speech and movement: Normal speech and movement present and Clear speech present Affect: normal affect Attitude: cooperative Thought process: Normal thought process present Thought content: Normal thought content present Insight: Fair insight present (Psych) Judgement: Fair judgement present (Psych) Assessment & Plan Assessment & Plan (1) Erectile dysfunction: Code(s): N52.9 - Male erectile dysfunction, unspecified Category: Medical (2) Nevus of shaft of penis: Code(s): D29.0 - Benign neoplasm of penis Category: Medical Plan We discussed potential causes of ED as well as further treatment options and risks and benefits of these treatment options. We discussed the importance of lifestyle modifications to assist with ED as well as overall health and well-being. Start Cialis 5 mg daily as discussed and prescribed. Additional dosing provided for 10 mg as needed PRN. Will obtain PSA and testosterone free and total for further assessment evaluation. Will continue with surveillance monitoring of penile nevus. He currently denies any bothersome urinary issues or concerns. We did discussed proper hygiene. He reports be happy with current voiding parameters. Follow-up in 3-4 months with labs to be completed prior; or sooner with any issues, concerns, and or questions. Orders: Orders Testosterone, Free/Total Today N52.9 - Male erectile dysfunction, unspecified Prostate Specific Antigen Today N52.9 - Male erectile dysfunction, unspecified Medications: New [facility]is[id number] [id number] 5 mg PO DAILY 90 tabs 2RF 90 days tadalafil (Cialis) administer approximately 30min before sexual activity; do not use more than 1 dose per 24hrs and not to exceed more than 3 times per week [id number] [facility] Member [id number] 10 mg PO .PRN PRN 40 tabs 1RF sexual activity 90 days Discontinued sildenafil administer 30 minutes to 4 hours before activity Discontinued Reason: Doctor's Order 100 mg PO DAILY PRN 14 tabs 1RF sexual activity Patient Instructions: The patient had an opportunity to ask questions regarding the treatment plan. All questions were answered. Physical exam, labs, and imaging were discussed and reviewed in detail. As well as risks, benefits, and discussion of treatment c yulia. No major barriers to understanding were identified. The patient expressed understanding and agreement with the above treatment plan. The patient was made aware they should contact our office by phone for worsening of their current condition, the appearance of new symptoms, or with any questions or concerns. Compliance is encouraged with any medications and follow up testing that is ordered. It is a privilege to be allowed the opportunity to participate in? your urological care.? Again, if you have any questions or concerns If you have any questions or concerns please do not hesitate to contact me. The office is [phone]. This note is constructed using voice recognition software. While every effort has been made to ensure accuracy seed laboratory technician errors may have been included. Yours sincerely, TRACEE Bernal Coding Level of Care Code New Pt Level 4 (51776) Diagnoses Erectile dysfunction N52.9 Nevus of shaft of penis D29.0
--- OUTSIDE RECORDS SUMMARY | 2024-09-25 13:44 | XMS_ITS ---
Author Organization [facility] Address [address] [place] [address] Care Team Providers Care Rice Farmworker Name Role Phone Gulshan Chanel Primary Care Provider [phone] Transplant Episode Liver Candidate [facility] ([place], [place]) - [facility] waitlisted on 08/29/2024 Marked as Inactive on 09/20/2024 Reason: Temporarily too Well Liver CoordinatorAngela Weaver RN Phone: N/A Fax: N/A Email: N/A Scores Score Value Updated Expires Exceptions/Gary sons CPRA Not available UNOS MELD 12 08/29/2024 11/27/2024 MELD (Calc) 12 08/28/2024 [place] Organ Diagnosis Organ Primary Contributory Liver Alcohol-Associated C irrhosis Without Acute Alcohol-Associated Hepatitis Care Team Name Role Phone Fax Email Angela Weaver RN Liver Coordinator N/A N/A N/A Yunior Pérez MD Seat Joiner [phone] Rosana [email or web address] Erin Allen MD Referring Physician [phone] [email or web address] Pre-Transplant Referred: 03/15/2024 Evaluation began: 04/17/2024 Committee: 08/02/2024 Center waitlisted: 08/29/2024 Appointments (08/26/2024 - 10/26/2024) When With Visit Type Description 09/12/2024 Transplant - Douglas Zambrano No Show 09/18/2024 Transplant - Carie Pérez Telehealth Alcoholic cirrhosis of liver with ascites (HCC) (Primary Dx) 10/03/2024 Transplant - Douglas Zambrano ew Patient
== END 2024-09-25 14:07 | disposition home or self-care (01) ==
LOC: HO.HUSH 13:06
PROVIDERS: PCP Nurse Practitioner Family; Visit Provider Nurse Practitioner Family
DX: N52.9 Male erectile dysfunction, unspecified (principal); D29.0 Benign neoplasm of penis; Z13.9 Encounter for screening, unspecified
CPT/HCPCS: 99204

== ENCOUNTER → 2024-09-25 13:03 | Outpatient (BNVA) | payer MEDICARE, MEDICAID, SELFPAY | PROVIDERS: PCP Nurse Practitioner Family; Visit Provider Nurse Practitioner Family | DX: A63.0 Anogenital (venereal) warts (principal); D29.0 Benign neoplasm of penis; Z79.899 Other long term (current) drug therapy; Z13.9 Encounter for screening, unspecified | CPT/HCPCS: 81003; 99202 ==